=== PATIENT | female | born 1950 | race Caucasian/White ===

== ENCOUNTER 2017-10-16 10:55 | Outpatient (RCR) | payer MEDICARE, MEDICAID, SELFPAY ==
--- NOTE | 2017-10-16 19:24 | HP.PTEVAL_ITS ---
Patient's Visit Information AMINATA LEE is a 67 year old F referred to Physical Therapy by DR.CBURSL Joseph with a diagnosis of L hemiparesis. Date of Evaluation: 10/16/17 Physical Therapist: Sonia Jones - Visit Plan Plan: Pt only needed 1X visit to assess function. Letter will be sent to MD - Subjective Subjective: Pt reports that she has a hard time to get up if she is sitting too long on the sofa or something. Pt reports that her school social worker told her to get an evaluation. She has a home health aide that helps her clean. Pt likes someone to be there when she showers. She has grab bars to hold onto. Pt gets moms meals that she heats up. She can stand for about a few minutes and then she needs to sit. She does not kneel at all because she had a knee replacement on the L and pain in the R knee. She has been using the straight cane for about 30 years. Pt had her stroke December 06, 1981. Pt reports that control pills caused it. Pt reports that she looses her balance very easily. She uses the cane mostly outdoors. If she moves too quick she will fall down. Pt can not look up unless she holds onto something. Pt has been noticing after age 63 she has been declining in strength. She can do stairs as long as there is a railing. She has hypersenitivity on the L side. Pt has a chair lift going to the basement to do the laundry and carry laundry up the stairs. She has a Nu- step and only using it a couple times a week and wants to get better at it. Pt wants a one time evaluation. Pt sees the pain Dr for back pain and arthritis pain. - Pain Headache Pain Intensity (Out of 10): 5 - Objective Gait: walks with L hip in ER and advances L foot with hip add. She is able to walk without a straight cane but has longer gait endurance with a straight cane. Stairs: able to go up and down stairs mostly with ascending the stairs leading with the R and descending leading with the L using 1 hand rail in the R hand. Pt was able to ascend the stairs alternating but stuggles and it is much easier to lead with the R while ascending the stairs. LE MMT: hip flex R 4/5 and L 3-/5, knee ext R 4/5 and L 3-/5, Knee flex R 4/5 and L 3+/5, R hip abd 4- /5 and L 3-/5, Heel and toe raise on the R with UE support has full range but L she is unable to do so. Pt struggles to roll side to side unless she has big enough mat to roll side to side without having to scoot over prior to rolling. Sit to stand: Pt is able to sit to stand with the use of her R UE and mostly the use of her R LE. Pt's L UE is not able to functionally help pt to be able to rise out of a chair. She is unable to get up out of the chair without the use of her R UE. Pt's reports that when she is sitting in a chair for awhile that is when she has a difficult time getting up out of a chair and the need for a lift chair. I was unable to witness this due to the fact I was having the pt move in order to complete the intial evaluation. - Rehabilitation Potential Rehabilitation Potential: Good - Anticipated Interventions Thank you for the opportunity to evaluate your patient. For Medicare and Medicare HMO plans, please review the plan of care and approve it. It will need to be FAXED BACK to us at [phone] for Medicare purposes. Please let me know if there are questions or concerns regarding this plan of care. Physician Signature: Date:
--- NOTE | 2017-12-17 13:18 | HP.PTDCSUM ---
HP - PT D/C Summary It has been my pleasure to treat AMINATA LEE under orders from Miguel Teresa, , for the diagnosis of L hemiparesis for a total of 1 visit(s). Discharge Date: 10/16/17 Please see the following information for a summary of their discharge status. - Pain Headache Pain Intensity (Out of 10): 5 - Plan Plan: Pt only needed 1X visit to assess function. Letter will be sent to MD - D/C Information Discharge Comments: DC back to physician care If there are questions or concerns regarding this patient's physical therapy, please feel free to call me at [phone]. Thank you for the referral of this patient. Sincerely, Sonia Jones
== END 2017-10-16 19:00 | disposition home or self-care (01) ==
LOC: PT 10:55
PROVIDERS: Family Provider Family Medicine; PCP Family Medicine; Visit Provider Family Medicine
DX: I63.311 Cerebral infarction due to thrombosis of right middle cerebral artery (principal); G81.14 Spastic hemiplegia affecting left nondominant side
CPT/HCPCS: 97162

== ENCOUNTER 2018-01-20 14:00 | Outpatient (RCR) | payer MEDICARE, MEDICAID, SELFPAY ==
--- NOTE | 2018-01-06 08:00 | HP.PTEVAL_ITS ---
Patient's Visit Information AMINATA LEE is a 67 year old F referred to Physical Therapy by Prabhakar Barrera MD with a diagnosis of R RTC pathology vs arthritis, L shoulder stiffness. Date of Evaluation: 12/25/17 Physical Therapist: Checo Araiza - Visit Plan Frequency: 2x /Week Duration: 4-6 Weeks Plan: Start with R shoulder stability/ROM exercises, May use modalities as needed. PRogress from phase II to phase III if pain is absent. Add in L elbow sustained stretching and PNF patterns to reduce tone. - Subjective Subjective: Pt. is her today her initial evaluation with diagnosis of R shoulder pain and L UE stiffness. Pt. reports having increased R shoulder pain for ~2-3 months with no mechanis, of injury. Increases pain: lifting, UB dressing, raising her arm, most ADLs. Decreases- drugs. Pt. reports that driving also causes some pain. She denies N/T and pain is at lateral shoulder and into deltoid region. Pt. has no pain in LUE, but does have weakness seoncdary to CVA ~30 years ago. Pt. reports increased L elbow stiffness over past 2-3 years. Pt. has not trialed any exercises, but does take medication that reduces her symptoms. Pt. reports being worried about her LUE stiffness. - Pain R shoulder Pain Intensity (Out of 10): 5 Pain Intensity Range: 0, 5 Comment: only painful with moving - Objective POSTURE: PT. has FH posture, rounded shoulders. Her L UE is in extreme IR and hand has increased flexor tone. PALPATION: Pt. has increased pain at subacromial space of R shoulder, no pain in L shoulder. NEUROLOGICAL: Pt. has absent LUE DTR biceps and triceps, normal sensation bilat. ROM: R shoulder- full with painful arc with abduction and flexion. IR limited to L5 with increased pain. LUE no voluntary movement of hand,elbow or shoulder. MMT- R shoulder- 4/5 generally throughout with increased pain with flexion, abduction and ER. L UE- 0/5 throughout. - Goals Goal 1:: Pt. to be I with HEP. Goal Time Frame: 4-6 Weeks Goal 2:: Pt.to have full R shoulder ROM without increase in pain. Goal Time Frame: 4-6 Weeks Goal 3:: Pt.to have increased L elbow flexion by 45deg allowing for increased ease of self care. Goal Time Frame: 4-6 Weeks Goal 4:: Pt. to have increased R shoulder strength by 1/2 grade allowing for increased ability to complete all ADLs. Goal Time Frame: 4-6 Weeks Goal 5:: Pt. to compelte all ADLs with 0-1/10 pain in R shoulder. - Rehabilitation Potential Physical Therapy Diagnosis: Pt. has signs and symptoms of R shoulder pain and L UE stiffness. Pt. has painful arc with R shoulder, but full motion. Pt. has signs suggesting tendonitis, RTC strain possible small tear, but not conclusive. Pt. has better motion and strength than expected if tear is present. Pt. also have LUE stiffness secondary to increased tone after CVA. Pt. would benefit from PT to increased R shoulder strength, painfree ROM, and improved L UE ROM. Pt. may benefit from spasticity management of LUE rather than PT, but will trial some sustained stretching/PNF patterns due to reduce tone. Rehabilitation Potential: Good - Anticipated Interventions Patient/Client Instruction: Educate patient on: Condition, Plan of Care, Risk Factors, Benefits of Fitness Program For the Purpose of:: To improve health and function, To foster healthy habits, To improve decision making, To facilitate caregiver knowledge, To improve self management, To prevent re-injury, To improve ability to perform tasks related to life management, To improve tolerance to ADL's Therapeutic Exercise to Include: Strength training, Power training, Postural training, Flexibilty training, Passive ROM, Active ROM, Scapular Strength/ Stabilization For the Purpose of:: To decrease pain, To decrease swelling/inflammation, To increase ROM, To improve nutrient delivery to tissue, To improve muscle performance and motor function, To improve ability to perform ADL's, To improve ability of physical actions for home/community/work/leisure, To improve health of tissue, To decrease soft tissue restriction, To increase flexibility/ROM Manual Therapy Techniques to Include: Mobilization, Passive ROM For the Purpose of:: To decrease pain, To decrease swelling/inflammation, To increase ROM, To improve nutrient delivery to tissue, To increase oxygenation perfusion, To improve muscle performance and motor function Thank you for the opportunity to evaluate your patient. For Medicare and Medicare HMO plans, please review the plan of care and approve it. It will need to be FAXED BACK to us at [phone] for Medicare purposes. Please let me know if there are questions or concerns regarding this plan of care. Physician Signature: Date:
--- NOTE | 2018-04-03 09:48 | HP.PTDCNRP_ITS ---
HP - Discharge Summary (1) - Patient Information AMINATA LEE was seen in my office for initial evaluation on 12/25/17. The following Plan of Care was established for this patient: Initial Frequency: 2x /Week Initial Duration: 4-6 Weeks - Anticipated Interventions Patient/Client Instruction: Educate patient on: Condition, Plan of Care, Risk Factors, Benefits of Fitness Program For the Purpose of:: To improve health and function, To foster healthy habits, To improve decision making, To facilitate caregiver knowledge, To improve self management, To prevent re-injury, To improve ability to perform tasks related to life management, To improve tolerance to ADL's Therapeutic Exercise to Include: Strength training, Power training, Postural training, Flexibilty training, Passive ROM, Active ROM, Scapular Strength/ Stabilization For the Purpose of:: To decrease pain, To decrease swelling/inflammation, To increase ROM, To improve nutrient delivery to tissue, To improve muscle performance and motor function, To improve ability to perform ADL's, To improve ability of physical actions for home/community/work/leisure, To improve health of tissue, To decrease soft tissue restriction, To increase flexibility/ROM Manual Therapy Techniques to Include: Mobilization, Passive ROM For the Purpose of:: To decrease pain, To decrease swelling/inflammation, To increase ROM, To improve nutrient delivery to tissue, To increase oxygenation perfusion, To improve muscle performance and motor function This patient was last seen in our office 01/24/18. Pertinent comments regarding their Physical therapy will appear below: Pt. was seen for her L elbow tightness and L shoulder pain. Pt. was treated with strenthening, ROM, and stretching. SHe was to follow up with Dr. Nur about possible contracture management of her LUE. Pt. has not been seen for this case in ~2 months and will be DC this case. At this point I will be discontinuing this patient from physical therapy. I would be happy to see this patient again in the future if found appropriate by the physician. Thank you! Checo Araiza
== END 2018-01-20 19:00 | disposition home or self-care (01) ==
LOC: PT 14:00
PROVIDERS: Family Provider Family Medicine; PCP Family Medicine
DX: M25.511 Pain in right shoulder (principal)
CPT/HCPCS: 97035; 97110; 97140; 97163

== ENCOUNTER 2018-03-19 14:15 | Outpatient (RCR) | payer MEDICARE, MEDICAID, SELFPAY ==
[2018-03-19 14:38] VITALS: BP 135/76; PULSE 79; RESP 18; TEMP 36.6
--- NOTE | 2018-03-19 15:44 | PCM.WC.HP ---
(1) Ulcer of left lower extremity, limited to breakdown of skin Status: Resolved Code(s): L97.921 - Non-pressure chronic ulcer of unspecified part of left lower leg limited to breakdown of skin (2) Foot drop, left Status: Chronic Code(s): M21.372 - Foot drop, left foot (3) Edema leg Status: Chronic Code(s): R60.0 - Localized edema (4) Venous insufficiency Status: Suspected Code(s): I87.2 - Venous insufficiency (chronic) (peripheral) (5) Lymphedema Status: Suspected Code(s): I89.0 - Lymphedema, not elsewhere classified History of Present Illness Date of Service: 03/22/18 Chief Complaint: Left leg wound and swelling History of Wound: This 67-year-old female with multiple comorbidities including chronic low back pain history of gastric ulcers osteoarthritis, GERD, insomnia, knee pain, lumbar go, migraines, obesity, urinary disorder history, stroke in 1981, hemorrhoids, urinary urgency, year or in prolapse, history of vitamin D deficiency. She was seen today at the wound healing center for a left leg wound that has subsequently healed prior to her visit. She has chronic swelling and she reports previous history of cellulitis to this limb. Her swelling has been going on for years and she is tried some compression stockings. She does have difficulty putting these on due to her left-sided hemiparesis and drop foot. She denies routine elevation or other previous workup for swelling. She denies current drainage, redness, fever, chill, nausea, vomiting. Past Medical History Past Medical History: Chronic Problems Foot drop, left (Chronic) Edema leg (Chronic) History of stroke (Chronic) Past Medical History: As noted in subjective. Medications: Reviewed. Allergies: Reviewed. Social history lives with at home, denies smoking or drug activity. Primary provider: Kassandra Sharma, [facility] / Dr. Teresa Allergies/Adverse Reactions: Allergies hydrochlorothiazide Allergy (Verified 03/19/18 14:54) Other metronidazole [From Flagyl] Allergy (Verified 03/19/18 14:54) Unknown dizziness triamterene Adverse Reaction (Verified 02/18/17 20:48) Other Home Medications: Ambulatory Orders Medication Instructions Recorded Amitriptyline HCl [Elavil] 100 mg PO QHS 04/09/15 Atorvastatin Calcium [Lipitor] 10 mg PO QHS 04/09/15 Diltiazem HCl [Diltiazem 24Hr ER] 300 mg PO DAILY 04/09/15 Gabapentin [Neurontin] 300 mg PO BID 04/09/15 Docusate Sodium [Colace] 100 mg PO DAILY 02/09/17 Famotidine [Pepcid] 40 mg PO DAILY 02/09/17 Furosemide [Lasix] 40 mg PO DAILY 02/09/17 Multivitamin [Daily Multiple 1 each PO DAILY 02/09/17 Vitamin] Trospium Chloride [Sanctura] 20 mg PO BID 02/09/17 Hydrocodone Bitart/Apap 5-325 2 tablet PO BID PRN PRN #40 tablet 02/21/17 [[place] 5/325] Cholecalciferol (Vitamin D3) 2,000 unit PO DAILY 03/19/18 [Vitamin D3] Potassium Chloride [K-Dur] 20 meq PO DAILY 03/19/18 - Family History Maternal No pertinent history Smoking Status: Never smoker Review of Systems Constitutional: Denies: Chills, Fever, Weakness Cardiovascular: Reports: Edema. Denies: Chest Pain, Claudication Respiratory: Denies: Shortness of Breath Gastrointestinal: Denies: Diarrhea, Nausea, Vomiting Musculoskeletal: Denies: Foot Pain, Joint Tenderness, Leg Pain Skin: Reports: Skin Changes, Wounds. Denies: Pruritis Neurological: Denies: Numbness Hematologic/ Lymphatic: Reports: Easy Bruising - Physical Exam Vital Signs Temp Pulse Resp BP 97.8 F 79 18 135/76 H 03/19/18 14:38 03/19/18 14:38 03/19/18 14:38 03/19/18 14:38 General: Alert, Oriented x3, Cooperative HEENT: Atraumatic Extremities: No cyanosis, Capillary Refill Less than 3 Seconds, No Calf Tenderness - Negative Rory and Mercado sign bilateral, Diminished Peripheral Pulses - Palpable DP pulses bilateral and difficult to palpate PT pulses bilateral, Edema - Edema moderate bilateral lower extremities Skin: Ulcer/ Wound - No ulcer, erythema, streaking, odor, or infection noted today. The skin is atrophic and with scant hair; hair is noted to the ankle level and also to the dorsal foot bilateral. There is hyperpigmentation noted to the anterior shins Wound Measurements and Assessment WC - Nurse 1 - General Ulcer Measurement Start: 03/19/18 13:50 Freq: Status: Active Protocol: Activity Type Activity Date Activity User E-Sign Co-Sign Detail Recorded Client Recorded Date Recorded By Document 03/19/18 14:38 DL [id number] 03/19/18 14:54 DL 03/19/18 14:38 Wound Center Nurse 1 [Edema Assessment] -Right Calf (cm) 44.5 -Point of Measurement (cm from the 24.5 medial instep) -Point of measurement (cm from the 47 medial instep) -Point of Measurement (cm from the 28.7 medial instep) - Nurse 2 - General Ulcer Notes Start: 03/19/18 13:50 Freq: Status: Active Protocol: Activity Type Activity Date Activity User E-Sign Co-Sign Detail Recorded Client Recorded Date Recorded By Document 03/19/18 15:08 [id number] 03/19/18 15:09 03/19/18 15:08 Pain Scale: 0-10 Numeric [Pain] -Is Patient Pain Free? Yes Musculoskeletal: No Tenderness to Palpation of Joints or Extremities, Muscle Wasting, - - Compartments of lower extremity remain soft. Ankle muscle strength in all directions is 5 out of 5 right and weakness with left lower extremity dorsiflexion eversion is noted this is consistent with a dropfoot. Active range of motion of all digits is noted in normal. Neurological: Sensory exam intact to light touch and pain Psych/Mental Status: Normal Affect, Appropriate Debridement Note Post-Debridement Measurements/Treatment - Nurse 2 - General Ulcer Notes Start: 03/19/18 13:50 Freq: Status: Active Protocol: Activity Type Activity Date Activity User E-Sign Co-Sign Detail Recorded Client Recorded Date Recorded By Document 03/19/18 15:08 [id number] 03/19/18 15:09 03/19/18 15:08 Pain Scale: 0-10 Numeric Is Patient Pain Free? Yes No debridement was completed today - No wound is noted today Assessment/Plan Assessment: History of left leg ulcer; healed today without infection signs. Chronic left leg edema; rule out venous insufficiency versus early lymphedema. Left drop foot. Gait impairment Plan: I reviewed and discussed her case today. She is concerned about recurrent wounds and she was reassured no wound or infection noted today. I recommend further workup with venous duplex Doppler including reflux evaluation to screen her for venous insufficiency. In order for arterial venous studies were provided today and she will return to clinic after these are completed. I recommend she continue to try to wear compression stockings; she is tried these for several years and struggles with proper use. They are very uncomfortable. I initiated a prescription for CircAid compression wrap for the left lower extremity and she will initiate this process. She was advised to elevate her limbs at rest. She was advised to avoid idle standing and sitting. She was educated on findings of blood clots and this is not suspected today. She was advised to continue follow-up with her primary care physician which medication contribution to the swelling will be reviewed and considered. I answered all of her questions. I also offered her future drop foot bracing and she will pursue this after her edema workup is completed. She understands braces at this including a low-profile more balanced brace versus a more protective and corrective brace to prevent dropfoot that had a patellar tendon bearing brace component. She will follow-up within the next 2-4 weeks.
== END 2018-03-21 23:59 ==
LOC: WC 14:15
PROVIDERS: Family Provider Family Medicine; PCP Family Medicine; Visit Provider Podiatrist
DX: Z09 Encounter for follow-up examination after completed treatment for conditions other than malignant neoplasm (principal); I87.2 Venous insufficiency (chronic) (peripheral); I89.0 Lymphedema, not elsewhere classified; R60.0 Localized edema; M21.372 Foot drop, left foot; Z79.899 Other long term (current) drug therapy; K21.9 Gastro-esophageal reflux disease without esophagitis
CPT/HCPCS: 99213; G0463

== ENCOUNTER 2018-03-26 11:03 | Outpatient (RCR) | payer MEDICARE, MEDICAID, SELFPAY ==
[2018-03-22 01:52] VITALS: BP 135/76; PULSE 79; RESP 18; TEMP 36.6
[2018-03-26 13:18] VITALS: RESP 18; TEMP 36.4
--- NOTE | 2018-03-26 15:47 | PCM.WC.PN ---
(1) Edema leg Status: Chronic Current Visit: Yes Code(s): R60.0 - Localized edema (2) Venous insufficiency Status: Suspected Current Visit: Yes Code(s): I87.2 - Venous insufficiency (chronic) (peripheral) (3) Lymphedema Status: Suspected Current Visit: Yes Code(s): I89.0 - Lymphedema, not elsewhere classified Type of Wound Date of Service: 03/26/18 Chief Complaint: Left leg wound and swelling History of Wound: This 67-year-old female with multiple comorbidities including chronic low back pain history of gastric ulcers osteoarthritis, GERD, insomnia, knee pain, lumbar go, migraines, obesity, urinary disorder history, stroke in 1981, hemorrhoids, urinary urgency, year or in prolapse, history of vitamin D deficiency. She was seen today at the wound healing center for a left leg wound that has subsequently healed prior to her visit. She has chronic swelling and she reports previous history of cellulitis to this limb. Her swelling has been going on for years and she is tried some compression stockings. She denies current drainage, redness, fever, chill, nausea, vomiting. She denies leg redness, wound, or drainage. She had her venous Doppler exams completed and would like to review the results today. Progress of Wound: No ulcer - Physical Exam Vital Signs Temp Pulse Resp BP 97.5 F L 79 18 135/76 H 03/26/18 13:18 03/22/18 01:52 03/26/18 13:18 03/22/18 01:52 General: Alert, Oriented x3, Cooperative Extremities: No cyanosis, Capillary Refill Less than 3 Seconds, No Calf Tenderness - Negative Rory and Mercado sign bilateral, Diminished Peripheral Pulses, Edema - Left moderate, right mild. Left leg is indurated. Varicosities noted to bilateral lower extremities Skin: Ulcer/ Wound - Full epithelialization continues. His skin is atrophic and she does have hair to the midline level Wound Measurements and Assessment WC - Nurse 1 - General Ulcer Measurement Start: 03/26/18 13:16 Freq: Status: Active Protocol: Activity Type Activity Date Activity User E-Sign Co-Sign Detail Recorded Client Recorded Date Recorded By Document 03/26/18 13:18 [facility] [id number] 03/26/18 13:24 [facility] 03/26/18 13:18 Wound Center Nurse 1 [Edema Assessment] -Lower Limb Edema Present Yes -Right Calf (cm) 40.8 -Right Ankle (cm) 24.7 -Left Calf (cm) 47.4 -Left Ankle (cm) 29 WC - Nurse 2 - General Ulcer CM Notes Start: 03/26/18 13:16 Freq: Status: Active Protocol: Activity Type Activity Date Activity User E-Sign Co-Sign Detail Recorded Client Recorded Date Recorded By Document 03/26/18 13:34 [id number] 03/26/18 13:43 03/26/18 13:34 Pain Scale: 0-10 Numeric [Pain] -Is Patient Pain Free? Yes Musculoskeletal: No Tenderness to Palpation of Joints or Extremities, Muscle Wasting, - - Left hemiparesis dropfoot unchanged from last visit Neurological: - - Lack of normal sensation in the left Psych/Mental Status: Normal Affect, Appropriate Debridement Note Post-Debridement Measurements/Treatment WC - Nurse 2 - General Ulcer CM Notes Start: 03/26/18 13:16 Freq: Status: Active Protocol: Activity Type Activity Date Activity User E-Sign Co-Sign Detail Recorded Client Recorded Date Recorded By Document 03/26/18 13:34 [id number] 03/26/18 13:43 03/26/18 13:34 Pain Scale: 0-10 Numeric Is Patient Pain Free? Yes No debridement was completed today - No ulcer is noted Assessment/Plan Active Problems Edema leg (Chronic) Assessment: History of left leg ulcer; healed today without infection signs. Chronic left leg edema; venous insufficiency, early lymphedema. Left drop foot. Gait impairment Plan: I reviewed and discussed her case today. She is concerned about recurrent wounds and she was reassured no wound or infection noted today. I recommend further workup with venous duplex Doppler including reflux evaluation to screen her for venous insufficiency. The results were reviewed today. She has venous incompetence and a referral was provided to vascular surgeon, Dr. Maravilla, to see if intervention is possible. I recommend she continue to try to wear compression stockings; she is tried these for several years and struggles with proper use. They are very uncomfortable. I initiated a prescription for CircAid compression wrap for the left lower extremity and she will initiate this process. She was advised to elevate her limbs at rest. She was advised to avoid idle standing and sitting. She was educated on findings of blood clots and this is not suspected today. She was advised to continue follow-up with her primary care physician which medication contribution to the swelling will be reviewed and considered. I answered all of her questions. I also offered her future drop foot bracing and she will pursue this after her edema workup is completed. She understands braces at this including a low-profile more balanced brace versus a more protective and corrective brace to prevent dropfoot that had a patellar tendon bearing brace component. She will be discharged from the wound healing center today because she does not have an ulcer. I recommend she follow-up at the foot and ankle center after she goes to her vascular referral or call sooner if she has any questions or concerns. We will additionally follow up on her vascular plan, compression CircAid order, and drop foot brace options.
== END 2018-04-20 23:59 ==
LOC: WC 11:03
PROVIDERS: Family Provider Family Medicine; PCP Family Medicine; Visit Provider Podiatrist
DX: I87.2 Venous insufficiency (chronic) (peripheral) (principal); R60.0 Localized edema; I89.0 Lymphedema, not elsewhere classified; M21.372 Foot drop, left foot; K21.9 Gastro-esophageal reflux disease without esophagitis
CPT/HCPCS: 93970; 99212; G0463

== ENCOUNTER 2018-03-31 15:00 | Outpatient (RCR) | payer MEDICARE, MEDICAID, SELFPAY ==
--- NOTE | 2018-02-24 13:12 | HP.PTEVAL_ITS ---
Patient's Visit Information AMINATA LEE is a 67 year old F referred to Physical Therapy by Shamika Nur with a diagnosis of L UE stiffnes, LUE pain. Date of Evaluation: 02/24/18 Physical Therapist: Checo Araiza - Visit Plan Frequency: 1x/Week Duration: 4-6 Weeks Plan: Start with elbow ROM, wrist/finger ROM/strethching. Trial some rthymic rotation/inhibition to reduce tone as well. - Subjective Subjective: Pt. is here today for her initial evaluation with diagnosis of L arm pain and L arm stiffness. Pt. reports having botox injections last SaturdayFebruary 18 into her L elbow and shoulder. Pt. has a history of CVA 36 years ago, resulting L UE hemiparesis. Pt. had noticed increased diffculty with ROM of her RUE over the past 6 months. She was initially referred her previously with L arm stiffness, but was referred to physician for botox injections. Pt. is able to complete all ADLs, but does have difficulty with management of LUE due to stiffness. Pt. is hopeful to increase ROM of elbow allowing for increased self care/management. - Pain LUE Pain Intensity (Out of 10): 0 - Objective POSTURE: Pt. keeps LUE in shoulder IR, and wrist in flexion. PT. has terminal elbow extension as well. PALPATION: Pt. mild tenderness at deltoid region, no symptoms in elbow. Pt. has decreased sensation to light touch, normal to firm pressure. NEUROLOGICAL: PT. has slight decrease in sensation throughout LUE, 3 + biceps and tricpes DTR, but limited motions noted. Pt. has increased tone throughout LUE elbow and wrist. ROM: RUE- full motions no issues. LUE- wrist- ext- neural passively, flexion full; elbow- ext full, elbow flexion 79deg passively, no active motion. MMT- Pt. is able to complete shoulder shrug, but no distal arm strength noted. - Goals Goal 1:: Pt. to be I with HEP. Goal Time Frame: 2-4 Weeks Goal 2:: Pt. to have increased L elbow flexion to 90+ deg alllowing for increased ability with UB dressing. Goal Time Frame: 2-4 Weeks Goal 3:: Pt. to have increased wrist extension to neutral passively allowing for increased ability to complete hygiene. Goal Time Frame: 2-4 Weeks - Rehabilitation Potential Physical Therapy Diagnosis: Pt. has signs and symptoms consistent with LUE stiffness secondary to increased tone after CVA. Pt. reports increased stiffness over past few years. She recently had botox injections to reduce some tone. She continues to have stiffness but has improved since last seeing her. Pt. would benefit from PT to continue stretching allowing for increased self mangement and care. Rehabilitation Potential: Fair - Anticipated Interventions Patient/Client Instruction: Educate patient on: Condition, Plan of Care, Risk Factors, Benefits of Fitness Program For the Purpose of:: To foster healthy habits, To improve decision making, To facilitate caregiver knowledge, To improve self management, To prevent re-injury , To improve ability to perform tasks related to life management, To improve tolerance to ADL's Therapeutic Exercise to Include: Flexibilty training, Passive ROM, Active ROM, Alexander Exercises, Scapular Strength/Stabilization For the Purpose of:: To decrease pain, To increase ROM, To improve nutrient delivery to tissue, To increase oxygenation perfusion, To improve ability to perform ADL's, To improve health of tissue, To decrease soft tissue restriction , To increase flexibility/ROM Thank you for the opportunity to evaluate your patient. For Medicare and Medicare HMO plans, please review the plan of care and approve it. It will need to be FAXED BACK to us at [phone] for Medicare purposes. Please let me know if there are questions or concerns regarding this plan of care. Physician Signature: Date:
--- NOTE | 2018-04-07 13:41 | HP.PTDCSUM ---
HP - PT D/C Summary It has been my pleasure to treat AMINATA LEE under orders from Shamika Nur, for the diagnosis of L UE stiffnes, LUE pain for a total of 4 visit(s). Discharge Date: 03/31/18 Please see the following information for a summary of their discharge status. - Subjective Subjective: Pt. reports I am doing okay today. She reports no pain currently. Pt. reports attempting to stretch on own at home with some success. - Pain LUE Pain Intensity (Out of 10): 0 - Overall Improvement % Improvement: 50 - Objective Objective/Function: Pt. tolerated all PT this date. Pt. continues to present with increased spasticity in LUE, maybe contracture. Pt. has some improved ROM, but minimal. ROM- L elbow 0-95deg increased pain with overpressure. in both directions. Pt. continues to keep arm in full shoulder IR with finger flexion. Pt. reports no pain in this position. - Goals Goal 1:: Pt. to be I with HEP. Goal Progress: Goal Met Goal 2:: Pt. to have increased L elbow flexion to 90+ deg alllowing for increased ability with UB dressing. Goal Progress: Progressing Goal 3:: Pt. to have increased wrist extension to neutral passively allowing for increased ability to complete hygiene. Goal Progress: Progressing - Plan Plan: Pt. to be DC to stretching HEP at this point in time. Pt. consents. - D/C Information Discharge Comments: Pt. had some small increases in ROM of L UE, but minimal. She reprots mild consistency with stretching at home. Pt. is independent with her current HEP and will be DC to stretching at home. Pt. given exercises for longer holds with stretching to increase consistency and to stay away from full IR positioninig, pt. consents. If there are questions or concerns regarding this patient's physical therapy, please feel free to call me at [phone]. Thank you for the referral of this patient. Sincerely, Checo Araiza
== END 2018-03-31 19:00 | disposition home or self-care (01) ==
LOC: PT 15:00
PROVIDERS: Family Provider Family Medicine; PCP Family Medicine; Visit Provider Anesthesiology Pain Medicine
DX: M79.603 Pain in arm, unspecified (principal); M25.60 Stiffness of unspecified joint, not elsewhere classified
CPT/HCPCS: 97110; 97161

== ENCOUNTER 2018-11-25 09:32 | Observation (INO) | payer MEDICARE, SELFPAY ==
[2018-11-25 09:28] VITALS: BP 165/85; PULSE 66; PULSE 77; RESP 18; TEMP 36.4; O2SAT 94; BMI 41.6
--- NOTE | 2018-11-25 10:02 | EKG12_ITS ---
Test Reason : WEAKNESS Blood Pressure : / mmHG Vent. Rate : 075 BPM Atrial Rate : 075 BPM P-R Int : 152 ms QRS Dur : 092 ms QT Int : 392 ms P-R-T Axes : 044 006 031 degrees QTc Int : 437 ms Normal sinus rhythm Normal ECG Confirmed by PETER DUKES ([id number]), magazine editor EARL SILVA ([id number]) on 11/28/2018 11:08:16 AM Referred By: JULIANNE Confirmed By:PETER DUKES
--- NOTE | 2018-11-25 10:05 | RAD_ITS ---
STUDY: X-RAY CHEST REASON FOR EXAM: Female, 68 years old. Weakness. History of CVA. TECHNIQUE: Single AP portable view of the chest. COMPARISON: None. FINDINGS: The lungs are clear and expanded. Scattered calcified granulomas. There is no demonstrated pleural abnormality. Normal size heart. Normal mediastinum and [place]. Normal visualized pulmonary arteries. There is atherosclerotic tortuosity of the aortic arch and descending thoracic aorta. There are degenerative changes of the visualized thoracic spine. There is degenerative osteoarthritis of the left shoulder. There is no demonstrated abnormality of the visualized soft tissue structures of the upper abdomen. RAD/Chest 1 View (Portable) IMPRESSION: Normal x-ray examination of the chest. Electronically Signed: Brayan Ram, at 10:46 EDT , Service support ,
[2018-11-25 10:27] LABS: Absolute Lymphocyte Count 1.19 X10^3/ul (0.83-4.51); Absolute Neutrophil Count 3.3 X10^3/uL (2.0-7.7); Basophil# 0.02 X10^3/uL; Basophil% 0.4 % (0-1); Eosinophil# 0.21 X10^3/uL; Hematocrit 41.2 % (37-47); Hemoglobin 13.3 g/dl (12.0-15.0); Lymphocyte # 1.19 X10^3/ul (4.0); Lymphocyte % 22.8 % (19-41); Mean Corp Hgb Conc 32.3 g/gl (32-36); Mean Corpuscular Hgb 29.5 pg (27.0-32.0); Mean Corpuscular Volume 91.4 fL (81-99); Mean Platelet Vol. 9.7 fl (6.2-12.0); Monocyte# 0.49 X10^3/uL; Monocyte% 9.4 % (0-10); Neutrophil % 63.2 % (47-70); Platelet Count 209 K/mm3 (150-450); RBC Distribution Width CV 13.1 % (11.6-14.6); RBC Distribution Width SD 43.5 fl (35.1-43.9); Red Blood Count 4.51 M/mm3 (4.2-5.4); White Blood Count 5.2 K/mm3 (4.4-11.0)
[2018-11-25 10:32] LABS: POSITIVE COUNT NO; POSITIVE DIFFERENTIAL NO; POSITIVE MORPHOLOGY NO
[2018-11-25 10:40] LABS: Anion Gap -1 (5-15); BUN 9 mg/dL (7-18); BUN/Creat Ratio 16.4 RATIO (10-20); Calcium,Total 8.8 mg/dL (8.5-10.1); Chloride 105 mmol/L (98-107); Creatinine, Serum 0.55 mg/dL (0.55-1.02); EST Glomerular Filtration Rate 116 mL/min (>60); Est Glom Filt Rate - Afr Amer 141 mL/min (>60); Glucose 88 mg/dL (74-106); Potassium 3.6 mmol/L (3.5-5.1); Sodium Level 140 mmol/L (136-145)
[2018-11-25 10:49] VITALS: BP 146/69; PULSE 79; RESP 18; O2SAT 93
[2018-11-25] MEDS: 0.9% Normal Saline 1,000 ML 150 ML IV (10:50)
[2018-11-25 10:56] LABS: Bacteria 0 SEEN /hpf (None Seen); Mucous, Urine 0 SEEN /hpf (<or=2+); Red Blood Cells-Urine 0 SEEN /hpf (0-5); Squamous Epithelial Cells - UA 0 SEEN /hpf (5-10); White Blood Cells 0 SEEN /hpf (0-5)
[2018-11-25 10:58] LABS: Color, Urine Straw (Yellow); Glucose, Dipstick Normal (Normal); Ketone-Dipstick Negative (Negative); Leukocyte Esterase-Dipstick Negative /ul (Negative); Nitrite-Dipstick Negative (Negative); Occult Blood-Urine Negative /ul (Negative); Protein-Dipstick Negative (Negative); Urine Bilirubin Dipstick Negative (Negative); Urine Clarity Clear (Clear); Urine Urobilinogen Normal (Normal)
--- NOTE | 2018-11-25 11:15 | ED.VISSUMM ---
- ER Visit Summary Date of Service: 11/25/18 Chief Complaint: [Weakness] History of Present Illness: The patient is a 68 F [presents with weakness that started last evening. Patient states that she got up it 1 in the morning to use the restroom and slid to the floor and could not get back up. Her daughter could not get her up either so they called EMS who helped her back in the bed. This morning she was able to stand up and get to the bedside commode but felt very weak and then once on the commode she could not get back up. Patient called EMS to bring her in for evaluation. Patient denies any fever or recent illness. Patient states she has history of left-sided stroke and weakness on the left side. Patient states she is been eating and drinking normally. She denies any fevers. She denies any cough. She denies urinary symptoms. Patient states she has not had symptoms like this before.] Physical Examination: [HEENT-PERRLA, EOMI. Cranial nerves II through XII grossly intact. TMs clear. Mucous membranes moist. No adenopathy. Cardiovascular-regular rate and rhythm without murmur or ectopy Lungs-clear to auscultation, chest wall stable without crepitus or subcu emphysema Abdomen-normoactive bowel sounds, soft, nontender, no rebound or rigidity, no peritoneal signs. Neuro axib-oiehbu-vagp and heel vega testing within normal limits, negative Romberg, negative pronator drift, fundi benign. Nonfocal exam. Extremities-intact ?4, normal range of motion, normal pulses, atraumatic] Test Results: [EKG obtained on arrival shows sinus rhythm with a ventricular rate of 75 bpm with no acute I segment changes. CBC with differential showing a 5.2, hemoglobin 13, hematocrit 41, placed 209. Chemistries unremarkable. Urinalysis was normal. Chest x-ray was normal.] Emergency Department Course and Treatment: [Patient was given normal saline.] Treatment Plan: [Admit for further work-up and treatment] Disposition: [Admit] Impression: [Generalized weakness Inability to ambulate] This note was generated with TASS dictation software. It may contain incorrect words, spelling, and punctuation that were not noted in review of the chart prior to signing ED Disposition - Plan for ED Patient: Referrals: Miguel Teresa MD [Primary Care Provider] -
--- NOTE | 2018-11-25 11:19 | PCM.HP.STD ---
History of Present Illness Date of Admission: 11/25/18 Chief Complaint: generalised weakness The patient is a 68 year old F patient states she got up to use the bathroom in the middle of the night and was unable to get up of the commode and had to slide down to the floor. Her daughter was not able to get her up and says that called the squad to get her back in bed. Upon waking up this morning she realized she was very weak and could barely get out of bed so she called the squad again and she was brought to the ED. She does admit to a fall a few days ago after she tripped in some water and landed on her backside. She had noticed that she had been having pain just above her right knee and also her right shoulder for the past 2 days. She however says that she does not think that this was due to the fall she had. She has not had any other falls recently. She denied any fever chills, lightheadedness, dizziness or palpitations, chest pain, diarrhea vomiting. 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 She was admitted through the ED on 11/25/18 with a complaint of new onset generalised weakness of one day duration. In the ED, vitals were stable and chemistry was significant only for bicarb of 36. CBC was unremarkable and troponin was negative. CXR showed no acute cardiopulmonary process. She is being admitted to be managed for generalised weakness and debility[] Past Medical History Past Medical History (Chronic Problems): Chronic Problems Foot drop, left (Chronic) Edema leg (Chronic) History of stroke (Chronic) Allergies hydrochlorothiazide Allergy (Verified 03/19/18 14:54) Other metronidazole [From Flagyl] Allergy (Verified 03/19/18 14:54) Unknown dizziness triamterene Adverse Reaction (Verified 02/18/17 20:48) Other Home Medications: Ambulatory Orders Medication Instructions Recorded Amitriptyline HCl [Elavil] 100 mg PO QHS 04/09/15 Atorvastatin Calcium [Lipitor] 10 mg PO QHS 04/09/15 Diltiazem HCl [Diltiazem 24Hr ER] 300 mg PO DAILY 04/09/15 Gabapentin [Neurontin] 300 mg PO BID 04/09/15 Docusate Sodium [Colace] 100 mg PO BID 02/09/17 Famotidine [Pepcid] 40 mg PO DAILY 02/09/17 Furosemide [Lasix] 40 mg PO DAILY 02/09/17 Multivitamin [Daily Multiple 1 each PO DAILY 02/09/17 Vitamin] Hydrocodone Bitart/Apap 5-325 2 tablet PO BID PRN PRN #40 tablet 02/21/17 [Weiner 5/325] Cholecalciferol (Vitamin D3) 2,000 unit PO DAILY 03/19/18 [Vitamin D3] Potassium Chloride [K-Dur] 10 meq PO DAILY 03/19/18 Baclofen [Lioresal] 10 mg PO DAILY 11/25/18 Calcium Carbonate [Calcium] 1,200 mg PO DAILY 11/25/18 Ibuprofen 600 mg PO 4X/DAY PRN 11/25/18 Mupirocin [Bactroban] 1 applic TOPICAL TID 11/25/18 Oxybutynin [Ditropan] 2.5 mg PO BID 11/25/18 Surgical History: no surgical history Psychiatric History: No pertinent psych hx [employer] History: No pertinent [employer] history Lives: With Family - daughter lives with her Smoking Status: Never smoker Alcohol: None - *Family History Maternal History Items: No pertinent history Review of Systems Constitutional: Reports: Weakness. Denies: Chills, Fever, Malaise, Weight Change, Fatigue Eyes: Denies: Blurred vision HEENT: Denies: Head Aches, Sinus Congestion, Sinus Drainage Cardiovascular: Denies: Chest Pain, Palpitations Respiratory: Denies: Cough, Shortness of Breath, Shortness of breath at rest, Shortness of breath upon exertion, Sputum production Gastrointestinal: Denies: Abdominal Pain, Nausea, Vomiting Genitourinary: Denies: Dysuria Musculoskeletal: Reports: Joint Pain - right knee pain, Shoulder Pain - right shoulder pain Skin: Denies: Rash, Wounds Neurological: Denies: Numbness, Tingling, Focal weakness Psychiatric: Denies: Anxiety, Depression, Homicidal Ideations, Suicidal Ideations Hematologic/ Lymphatic: Denies: Easy Bruising, Easy Bleeding VTE Information - Inpt Only VTE Present on Admission: No VTE Pharm Prophylaxis ordered?: Yes - Physical Exam General: Alert, Oriented x3, Cooperative, No apparent distress HEENT: Atraumatic, PERRLA, EOMI, Normocephalic Oral: Dry Mucosa Neck: Supple, No JVD, Negative Carotid Bruits Lungs: Clear to auscultation, Normal air movement, No rhonchi, No wheeze, No rales Cardiovascular: Regular rate, Regular Rhythm, Normal S1, Normal S2, No murmurs Abdomen: Bowel Sounds Present, Soft, Non Tender, Non-Distended, No Hepato-splenomegaly Extremities: No clubbing, No cyanosis, Edema - mild chronic LLE pitting pedal edema Skin: No rashes, No breakdown Musculoskeletal: Tenderness - has mild tenderness to palpation of right knee and just above right knee. No swelling on examination. Has mild tenderness on palpation of right shoulder. Able to elevate, abduct and adduct right shoulder joint. Lymphatic: No Cervical, Supraclavicular, or Inguinal Adenopathy Neurological: - - power in LLE and LUE is 4-/5 which is due to residual weakness from stroke Psych/Mental Status: Normal Affect, Appropriate, Alert and oriented to time, place, person, mood and affect Vital Signs Temp Pulse Resp BP Pulse Ox 97.5 F L 79 18 146/69 H 93 11/25/18 09:28 11/25/18 10:49 11/25/18 10:49 11/25/18 10:49 11/25/18 10:49 Oxygen Delivery Method Room Air Weight: 213 lb 2.992 oz Body Mass Index (BMI) 41.6 Laboratory Tests Past 24 Hrs 11/25/18 11/25/18 11/25/18 10:10 10:10 10:50 WBC 5.2 RBC 4.51 Hgb 13.3 Hct 41.2 MCV 91.4 MCH 29.5 MCHC 32.3 RDW 13.1 RDW Differential 43.5 Plt Count 209 MPV 9.7 Immature Gran % (Auto) 0.200 Neut % (Auto) 63.2 Lymph % (Auto) 22.8 Drew % (Auto) 9.4 Eos % (Auto) 4.0 Baso % (Auto) 0.4 Absolute Neuts (auto) 3.3 Absolute Lymphs (auto) 1.19 Total Counted Not Reportable Sodium 140 Potassium 3.6 Chloride 105 Carbon Dioxide 36.0 H Anion Gap -1 L BUN 9 Creatinine 0.55 Estim Creat Clear Calc 37.60 Est GFR (MDRD) Af Amer 141 Est GFR (MDRD) Non-Af 116 BUN/Creatinine Ratio 16.4 Glucose 88 Calcium 8.8 Troponin I < 0.015 Urine Color Straw Urine Clarity Clear Urine pH 7.0 Ur Specific [place] 1.010 Urine Protein Negative Urine Glucose (UA) Normal Urine Ketones Negative Urine Occult Blood Negative Urine Nitrite Negative Urine Bilirubin Negative Urine Urobilinogen Normal Ur Leukocyte Esterase Negative Urine RBC 0 SEEN Urine WBC 0 SEEN Ur Squamous Epith Cells 0 SEEN Urine Bacteria 0 SEEN Urine Mucus 0 SEEN Assessment/Plan All Active Problems Ulcer of left lower extremity, limited to breakdown of skin (Resolved) Hypokalemia (Acute) Multiple falls (Acute) C. difficile diarrhea (Acute) Urinary tract infection due to Enterococcus (Acute) 68-year-old female admitted with complaint of generalized weakness. 1. Generalised weakness and debility due to mechanical falls fell a few days ago, and has been unable to get up and out of bed admit to Med Surg with telemetry CBC and BMP were WNL, apart from mildly elevated Bicarb of 36 fall precautions Xray of right shoulder and knee hydrate gently with IVF Normal saline check orthostatics PT/OT consult 2. Hypertension: on cardizem and furosemide. 3. Hyperlipidemia: on statin DVT prophylaxis: lovenox Code Visit Inpatient E&M: [id number] Init Hosp L2
--- NOTE | 2018-11-25 11:20 | ED.DCSUM_ITS ---
- ER Visit Summary Date of Service: 11/25/18 Chief Complaint: [Weakness] History of Present Illness: The patient is a 68 F [presents with weakness that started last evening. Patient states that she got up it 1 in the morning to use the restroom and slid to the floor and could not get back up. Her daughter could not get her up either so they called EMS who helped her back in the bed. This morning she was able to stand up and get to the bedside commode but felt very weak and then once on the commode she could not get back up. Patient called EMS to bring her in for evaluation. Patient denies any fever or recent illness. Patient states she has history of left-sided stroke and weakness on the left side. Patient states she is been eating and drinking normally. She denies any fevers. She denies any cough. She denies urinary symptoms. Patient states she has not had symptoms like this before.] Physical Examination: [HEENT-PERRLA, EOMI. Cranial nerves II through XII grossly intact. TMs clear. Mucous membranes moist. No adenopathy. Cardiovascular-regular rate and rhythm without murmur or ectopy Lungs-clear to auscultation, chest wall stable without crepitus or subcu emphysema Abdomen-normoactive bowel sounds, soft, nontender, no rebound or rigidity, no peritoneal signs. Neuro ehrn-lhunsr-bugf and heel vega testing within normal limits, negative Romberg, negative pronator drift, fundi benign. Nonfocal exam. Extremities-intact ?4, normal range of motion, normal pulses, atraumatic] Test Results: [EKG obtained on arrival shows sinus rhythm with a ventricular rate of 75 bpm with no acute I segment changes. CBC with differential showing a 5.2, hemoglobin 13, hematocrit 41, placed 209. Chemistries unremarkable. Urinalysis was normal. Chest x-ray was normal.] Emergency Department Course and Treatment: [Patient was given normal saline.] Treatment Plan: [Admit for further work-up and treatment] Disposition: [Admit] Impression: [Generalized weakness Inability to ambulate] This note was generated with [employer] dictation software. It may contain incorrect words, spelling, and punctuation that were not noted in review of the chart prior to signing ED Disposition - Plan for ED Patient: Referrals: Miguel Teresa MD [Primary Care Provider] -
--- NOTE | 2018-11-25 11:44 | CASEMGMT ---
RN CM Assessment Introduced role of RN CM to patient.? Patient is alert, oriented and able?to participate in RN CM Assessment. ?Care providers, pharmacy, and demographics verified. Presentation: Today while going to Bathroom Slid to fl and couldn't get up, Increased Weakness. H/o Lt side Stroke w/Lt side weakness. Admit Dx: General Debility Re-Admit: No Barriers/Issues: None. Patient states just seen [employer] yesterday and they placed an order for PT for her Shoulder at [facility]. PCP: Prabhakar Teresa Specialists: None Preferred Pharmacy: [facility] Insurance: [facility] Dual Rx Benefit:?Yes LNOK: Ovidio Del Angel and Dtr Laura Del Angel LW/HPOA: Yes both, patient aware not on file at [facility] and to bring when available. HPOA both ovidio Del Angel and Dtr Laura Del Angel Living Arrangements:? Lives with Dtr Laura and two Grandchildren. ADL?s: Independent with ambulation throughout House, Uses cane if Outside, Uses Mobility scooter for longer distances. Independent with ADL's. States that she has an Aide through [employer] w/[employer] twice/week and helps with house work and Bathing/Dressing-however she tries to do that herself. Transportation: Patient drives, states DC with Dtr DME: Cane, Shower Chair-does not use, states d/t it being too big. Commode, WC- states was her aunts but can use if needed. Mobility Scooter. HHC: Past w/[facility]. States if HH needed again, preference is [facility]. SNF: Past /[facility] Goal: Return home, states open to C PT if recommended w/[facility] DC PLAN: Home with possible HH PT. NEYDA Miller
[2018-11-25 12:03] VITALS: BMI 38.3; BMI 38.4
[2018-11-25 12:31] VITALS: BP 131/73; PULSE 71; RESP 18; TEMP 36.5; O2SAT 95
--- NOTE | 2018-11-25 14:03 | RAD_ITS ---
STUDY: X-RAY - RIGHT SHOULDER REASON FOR EXAM: Female, 68 years old. Pain TECHNIQUE: 4 view(s) of the shoulder. COMPARISON: None. FINDINGS: There is cephalad migration of the humeral head consistent with rotator cuff pathology. There is degenerative arthrosis of the acromioclavicular joint without inferior osseous spur formation. Normal acromion. Normal humeral head and visualized proximal humerus. The soft tissue structures are unremarkable. Normal visualized pulmonary apex. RAD/Shoulder min 2 Views IMPRESSION: There is mild cephalad migration of the humeral head which may be indicative of rotator cuff abnormality. There are degenerative changes of the right AC joint. Electronically Signed: Brayden Childers MD at 19:30 EDT , Service support ,
--- NOTE | 2018-11-25 14:03 | RAD_ITS ---
STUDY: X-RAY - RIGHT KNEE REASON FOR EXAM: Female, 68 years old. Pain. TECHNIQUE: 4 view(s) of the knee. COMPARISON: None. FINDINGS: There is periarticular spurring of the femoral condyles. There is periarticular spurring of the tibial plateaus, more prominent laterally, as well as spurring of the tibial spines. Mild subarticular sclerosis of the tibial plateaus. Normal visualized proximal fibula. There is mild periarticular spurring at the base and apex of the patella. There is no demonstrated destructive osseous lesion or acute fracture. There is overlie degenerative narrowing of the medial femorotibial compartment, as well as faint chondrocalcinosis. There is degenerative arthrosis of the lateral femorotibial compartment with mild to moderate joint space narrowing and mild chondrocalcinosis. Normal patellofemoral articulation. Normal proximal tibiofibular articulation. There is a soft tissue prominence in the suprapatellar region suggesting a small volume joint effusion. The soft tissue structures are unremarkable. RAD/Knee 4 or More Views IMPRESSION: Tricompartmental degenerative arthrosis of the knee, including chondrocalcinosis and suprapatellar joint effusion. Differential includes gout as well as calcium pyrophosphate deposition disease (pseudogout, CPPD). Electronically Signed: Dangelo Benedict MD at 19:30 EDT , Service support ,
[2018-11-25 16:35] VITALS: BP 139/82; PULSE 70; RESP 16; TEMP 36.6; O2SAT 96
[2018-11-25] MEDS: Gabapentin 300 MG Capsule PO (16:36)
[2018-11-25 16:37] VITALS: BP 139/82; BP 143/71; BP 147/78; PULSE 76; PULSE 86; PULSE 87
[2018-11-25] MEDS: Amitriptyline 100 MG Tablet PO (21:10)
[2018-11-25] MEDS: HYDROcodone Bitartrate/Apap 5/325 Tablet PO (21:10)
[2018-11-25] MEDS: Docusate Sodium 100 MG Capsule PO (21:10)
[2018-11-25] MEDS: Atorvastatin Calcium 10 MG Tablet PO (21:10)
[2018-11-25 21:13] VITALS: BP 150/80; PULSE 89; RESP 16; TEMP 36.9; O2SAT 96
[2018-11-26 03:13] VITALS: BP 135/77; PULSE 84; RESP 14; TEMP 36.5; O2SAT 92
[2018-11-26 05:45] LABS: Absolute Lymphocyte Count 1.79 X10^3/ul (0.83-4.51); Absolute Neutrophil Count 2.8 X10^3/uL (2.0-7.7); Basophil# 0.03 X10^3/uL; Basophil% 0.6 % (0-1); Eosinophils% 5.5 % (0-5); Hematocrit 37.8 % (37-47); Hemoglobin 12.2 g/dl (12.0-15.0); Lymphocyte # 1.79 X10^3/ul (4.0); Mean Corp Hgb Conc 32.3 g/gl (32-36); Mean Corpuscular Volume 89.8 fL (81-99); Monocyte# 0.49 X10^3/uL; Neutrophil % 51.7 % (47-70); Platelet Count 209 K/mm3 (150-450); RBC Distribution Width CV 12.8 % (11.6-14.6); RBC Distribution Width SD 41.2 fl (35.1-43.9); Red Blood Count 4.21 M/mm3 (4.2-5.4); White Blood Count 5.4 K/mm3 (4.4-11.0)
[2018-11-26 05:50] LABS: POSITIVE COUNT NO; POSITIVE DIFFERENTIAL NO; POSITIVE MORPHOLOGY NO
[2018-11-26 06:02] LABS: Anion Gap 2 (5-15); BUN 10 mg/dL (7-18); Calcium,Total 7.9 mg/dL (8.5-10.1); Chloride 108 mmol/L (98-107); Creatinine, Serum 0.48 mg/dL (0.55-1.02); EST Glomerular Filtration Rate 137 mL/min (>60); Est Glom Filt Rate - Afr Amer 166 mL/min (>60); Glucose 91 mg/dL (74-106); Potassium 3.6 mmol/L (3.5-5.1); Sodium Level 139 mmol/L (136-145)
[2018-11-26 06:17] VITALS: BP 122/69; BP 123/76; BP 131/84; PULSE 82; PULSE 87; PULSE 92
--- NOTE | 2018-11-26 07:21 | MRI_ITS ---
STUDY: MRI RIGHT SHOULDER REASON FOR EXAM: Female, 68 years old. Injury. Pain. Limited range of motion. TECHNIQUE: Standardized fat and water weighted pulse sequences were obtained in all 3 orthogonal planes. COMPARISON: November 25, 2018 FINDINGS: Full thickness tear of the supraspinatus and infraspinatus tendons with retraction of 3.0 cm, series 6 images 02/07 through . There is subscapularis tendinosis with tendon thickening, but without a demonstrated tendon tear. Normal teres minor tendon. There is moderate muscular atrophy of the supraspinatus muscle. There is moderate muscular atrophy of the infraspinatus muscle. Normal subscapularis muscle. Normal teres minor muscle. There is a large volume joint effusion of the glenohumeral joint extending to the subcoracoid recess. Normal humeral head and visualized proximal humerus. Tear of the biceps labral complex. Subluxation of the intracapsular long biceps tendon. Normal labrum. Normal capsulo- ligamentous complex. Normal rotator interval. There is mild osteoarthritis of the acromioclavicular articulation. There is a Type II morphology (curved) acromion, with a neutral orientation. There is moderate fluid distention of the subacromial bursa, consistent with moderate subacromial-subdeltoid bursitis. Normal visualized coracohumeral and coracoacromial ligaments. Normal quadrilateral space. Normal axillary space. Normal deltoid muscle. Normal trapezius muscle. MRI/Upper Ext Joint Only(Routine) IMPRESSION: Rotator cuff tear of the supraspinatus and infraspinatus tendons with retraction and muscular atrophy. Tear at the biceps anchor with subluxation of the long head of the biceps. Electronically Signed: Benny Interiano MD at 16:12 EDT , Service support ,
--- NOTE | 2018-11-26 08:41 | PCM.PN.HOSP ---
Subjective: Patient seen and examined. Still complains of right shoulder and knee pain. Review of systems otherwise negative. Labs and vitals reviewed. Vitals/I&O's: Vital Signs Temp Pulse Resp BP Pulse Ox 97.7 F L 82 14 123/76 H 92 11/26/18 03:13 11/26/18 06:17 11/26/18 03:13 11/26/18 06:17 11/26/18 03:13 Oxygen Delivery Method Room Air Weight: 203 lb 0.732 oz Body Mass Index (BMI) 38.3 Orthostatic Vital Signs Start: 11/25/18 16:37 Freq: q24h Status: Active Protocol: Activity Type Activity Date Activity User E-Sign Co-Sign Detail Recorded Client Recorded Date Recorded By Document 11/26/18 06:17 GLC [id number] 11/26/18 06:18 GLC 11/26/18 06:17 Orthostatic Vitals Standing -Blood Pressure (90/60-120/80 mm Hg) 122/69 H -Extremity Use Right Arm -Pulse Rate (60-100 beats/min) 92 Sitting -Blood Pressure (90/60-120/80 mm Hg) 131/84 H -Extremity Use Right Arm -Pulse Rate (60-100 beats/min) 87 Lying -Blood Pressure (90/60-120/80 mm Hg) 123/76 H -Extremity Use Right Arm -Pulse Rate (60-100 beats/min) 82 Intake and Output for Last 24 Hours 11/24/18 11/25/18 11/26/18 23:59 23:59 23:59 Intake Total 1100 / 1100 Output Total 1400 / 1400 Balance -300 / -300 General: Alert, Oriented x3, Cooperative, No apparent distress HEENT: Atraumatic, PERRLA, EOMI, Normocephalic Oral: Dry Mucosa Neck: Supple, No JVD, Negative Carotid Bruits Lungs: Clear to auscultation, Normal air movement, No rhonchi, No wheeze, No rales Cardiovascular: Regular rate, Regular Rhythm, Normal S1, Normal S2, No murmurs Abdomen: Bowel Sounds Present, Soft, Non Tender, Non-Distended, No Hepato-splenomegaly Extremities: No clubbing, No cyanosis, Edema - mild chronic LLE pitting pedal edema Skin: No rashes, No breakdown Musculoskeletal: Tenderness - has mild tenderness to palpation of right knee and just above right knee. Has mild tenderness on palpation of right shoulder. Able to elevate, abduct and adduct right shoulder joint. Lymphatic: No Cervical, Supraclavicular, or Inguinal Adenopathy Neurological: - - power in LLE and LUE is 4-/5 which is due to residual weakness from stroke Psych/Mental Status: Normal Affect, Appropriate, Alert and oriented to time, place, person, mood and affect Laboratory Results 11/25/18 10:10: WBC 5.2, RBC 4.51, Hgb 13.3, Hct 41.2, MCV 91.4, MCH 29.5, MCHC 32.3, RDW 13.1, RDW Differential 43.5, Plt Count 209, MPV 9.7, Immature Gran % (Auto) 0.200, Neut % (Auto) 63.2, Lymph % (Auto) 22.8, [place] % (Auto) 9.4, Eos % (Auto) 4.0, Baso % (Auto) 0.4, Absolute Neuts (auto) 3.3, Absolute Lymphs (auto) 1.19, Total Counted Not Reportable 11/25/18 10:10: Sodium 140, Potassium 3.6, Chloride 105, Carbon Dioxide 36.0 H, Anion Gap -1 L, BUN 9, Creatinine 0.55, Estim Creat Clear Calc 37.60, Est GFR (MDRD) Af Amer 141, Est GFR (MDRD) Non-Af 116, BUN/Creatinine Ratio 16.4, Glucose 88, Calcium 8.8, Troponin I < 0.015 11/25/18 10:50: Urine Color Straw, Urine Clarity Clear, Urine pH 7.0, Ur Specific [place] 1.010, Urine Protein Negative, Urine Glucose (UA) Normal, Urine Ketones Negative, Urine Occult Blood Negative, Urine Nitrite Negative, Urine Bilirubin Negative, Urine Urobilinogen Normal, Ur Leukocyte Esterase Negative, Urine RBC 0 SEEN, Urine WBC 0 SEEN, Ur Squamous Epith Cells 0 SEEN, Urine Bacteria 0 SEEN, Urine Mucus 0 SEEN 11/26/18 05:18: WBC 5.4, RBC 4.21, Hgb 12.2, Hct 37.8, MCV 89.8, MCH 29.0, MCHC 32.3, RDW 12.8, RDW Differential 41.2, Plt Count 209, MPV 10.0, Immature Gran % (Auto) 0.200, Neut % (Auto) 51.7, Lymph % (Auto) 33.0, [place] % (Auto) 9.0, Eos % (Auto) 5.5 H, Baso % (Auto) 0.6, Absolute Neuts (auto) 2.8, Absolute Lymphs (auto) 1.79, Total Counted Not Reportable 11/26/18 05:18: Sodium 139, Potassium 3.6, Chloride 108 H, Carbon Dioxide 29.0, Anion Gap 2 L, BUN 10, Creatinine 0.48 L, Estim Creat Clear Calc 39.50, Est GFR (MDRD) Af Amer 166, Est GFR (MDRD) Non-Af 137, BUN/Creatinine Ratio 21.0 H, Glucose 91, Calcium 7.9 L Diagnostic Data Chest X-Ray 11/25/18 10:05 IMPRESSION: Normal x-ray examination of the chest. Electronically Signed: Brayan Ram, at 10:46 EDT , Service support , Knee X-Ray 11/25/18 14:03 IMPRESSION: Tricompartmental degenerative arthrosis of the knee, including chondrocalcinosis and suprapatellar joint effusion. Differential includes gout as well as calcium pyrophosphate deposition disease (pseudogout, CPPD). Electronically Signed: Dangelo Benedict MD at 19:30 EDT , Service support , Shoulder X-Ray 11/25/18 14:03 IMPRESSION: There is mild cephalad migration of the humeral head which may be indicative of rotator cuff abnormality. There are degenerative changes of the right AC joint. Electronically Signed: Brayden Childers MD at 19:30 EDT , Service support , Current Medications Acetaminophen (Tylenol) 650 mg PO Q6H PRN PRN PRN Reason: Mild Pain (1-3)/Temp > 100.7 F Hydrocodone Bitart/Acetaminophen (Magazine 5mg-325mg) 2 tablet PO BID PRN PRN PRN Reason: SEVERE PAIN (6-1010) Last Admin: 11/25/18 21:10 Dose: 2 tablet Amitriptyline HCl (Elavil) 100 mg PO QHS [facility] Last Admin: 11/25/18 21:10 Dose: 100 mg Atorvastatin Calcium (Lipitor) 10 mg PO QHS [facility] Last Admin: 11/25/18 21:10 Dose: 10 mg Baclofen (Lioresal) 10 mg PO DAILY@0800 [facility] Calcium Carbonate (Tums) [facility] Cholecalciferol (Vitamin D) 2,000 unit [facility] Dextrose (D50w Syringe) 0 gm IV X1 PRN; Protocol PRN Reason: Hypoglycemia Diltiazem HCl (Cardizem Cd) 300 mg PO DAILY [facility] Docusate Sodium (Colace) 100 mg PO BID [facility] Last Admin: 11/25/18 21:10 Dose: 100 mg Enoxaparin Sodium (Lovenox) 40 mg SC DAILY@1000 [facility] Famotidine (Pepcid) 40 mg PO DAILY [facility] Furosemide (Lasix) 40 mg PO DAILY [facility] Gabapentin (Neurontin) [facility] Last Admin: 11/25/18 16:36 Dose: 300 mg Glucagon () 1 mg IM .X1 PRN PRN Reason: Hypoglycemia Ibuprofen (Motrin) 600 mg PO 4X/DAY PRN PRN Reason: PAIN Multivitamins (Multivitamin) 1 tablet PO DAILY@0800 [facility] Oxybutynin Chloride (Ditropan) 2.5 mg PO BID [facility] Potassium Chloride (K-Dur) 10 meq [facility] Sodium Chloride () 5 - 15 ml IV UD PRN PRN Reason: SALINE FLUSH Medical Necessity - Tobacco Use Smoking Status: Never smoker Assessment/Plan All Active Problems Ulcer of left lower extremity, limited to breakdown of skin (Resolved) Hypokalemia (Acute) Multiple falls (Acute) C. difficile diarrhea (Acute) Urinary tract infection due to Enterococcus (Acute) 68-year-old female admitted with complaint of generalized weakness. 1. Generalised weakness and debility due to mechanical falls still complains of right knee and shoulder pain xray of right knee showed tricompartmental degenerative arthrosis of the knee, including chondrocalcinosis and suprapatellar joint effusion xray of her right shoulder showed: mild cephalad migration of humeral head which may be indicative of rotator cuff abnormality will get MRI of the left shoulder and consider orthopedic evaluation PT/OT on board fall precautions 2. Hypertension: on cardizem and furosemide. 3. Hyperlipidemia: on statin DVT prophylaxis: lovenox Code Visit OBSV E&M: 64313 Subsequent observation care L2
--- NOTE | 2018-11-26 08:45 | PN_ITS ---
Subjective: Patient seen and examined. Still complains of right shoulder and knee pain. Review of systems otherwise negative. Labs and vitals reviewed. Vitals/I&O's: Vital Signs Temp Pulse Resp BP Pulse Ox 97.7 F L 82 14 123/76 H 92 11/26/18 03:13 11/26/18 06:17 11/26/18 03:13 11/26/18 06:17 11/26/18 03:13 Oxygen Delivery Method Room Air Weight: 203 lb 0.732 oz Body Mass Index (BMI) 38.3 Orthostatic Vital Signs Start: 11/25/18 16:37 Freq: q24h Status: Active Protocol: Activity Type Activity Date Activity User E-Sign Co-Sign Detail Recorded Client Recorded Date Recorded By Document 11/26/18 06:17 GLC [id number] 11/26/18 06:18 GLC 11/26/18 06:17 Orthostatic Vitals Standing -Blood Pressure (90/60-120/80 mm Hg) 122/69 H -Extremity Use Right Arm -Pulse Rate (60-100 beats/min) 92 Sitting -Blood Pressure (90/60-120/80 mm Hg) 131/84 H -Extremity Use Right Arm -Pulse Rate (60-100 beats/min) 87 Lying -Blood Pressure (90/60-120/80 mm Hg) 123/76 H -Extremity Use Right Arm -Pulse Rate (60-100 beats/min) 82 Intake and Output for Last 24 Hours 11/24/18 11/25/18 11/26/18 23:59 23:59 23:59 Intake Total 1100 / 1100 Output Total 1400 / 1400 Balance -300 / -300 General: Alert, Oriented x3, Cooperative, No apparent distress HEENT: Atraumatic, PERRLA, EOMI, Normocephalic Oral: Dry Mucosa Neck: Supple, No JVD, Negative Carotid Bruits Lungs: Clear to auscultation, Normal air movement, No rhonchi, No wheeze, No rales Cardiovascular: Regular rate, Regular Rhythm, Normal S1, Normal S2, No murmurs Abdomen: Bowel Sounds Present, Soft, Non Tender, Non-Distended, No Hepato- splenomegaly Extremities: No clubbing, No cyanosis, Edema - mild chronic LLE pitting pedal edema Skin: No rashes, No breakdown Musculoskeletal: Tenderness - has mild tenderness to palpation of right knee and just above right knee. Has mild tenderness on palpation of right shoulder. Able to elevate, abduct and adduct right shoulder joint. Lymphatic: No Cervical, Supraclavicular, or Inguinal Adenopathy Neurological: - - power in LLE and LUE is 4-/5 which is due to residual weakness from stroke Psych/Mental Status: Normal Affect, Appropriate, Alert and oriented to time, place, person, mood and affect Laboratory Results 11/25/18 10:10: WBC 5.2, RBC 4.51, Hgb 13.3, Hct 41.2, MCV 91.4, MCH 29.5, MCHC 32.3, RDW 13.1, RDW Differential 43.5, Plt Count 209, MPV 9.7, Immature Gran % (Auto) 0.200, Neut % (Auto) 63.2, Lymph % (Auto) 22.8, [place] % (Auto) 9.4, Eos % (Auto) 4.0, Baso % (Auto) 0.4, Absolute Neuts (auto) 3.3, Absolute Lymphs (auto) 1.19, Total Counted Not Reportable 11/25/18 10:10: Sodium 140, Potassium 3.6, Chloride 105, Carbon Dioxide 36.0 H, Anion Gap -1 L, BUN 9, Creatinine 0.55, Estim Creat Clear Calc 37.60, Est GFR (MDRD) Af Amer 141, Est GFR (MDRD) Non-Af 116, BUN/Creatinine Ratio 16.4, Glucose 88, Calcium 8.8, Troponin I < 0.015 11/25/18 10:50: Urine Color Straw, Urine Clarity Clear, Urine pH 7.0, Ur Specific [place] 1.010, Urine Protein Negative, Urine Glucose (UA) Normal, Urine Ketones Negative, Urine Occult Blood Negative, Urine Nitrite Negative, Urine Bilirubin Negative, Urine Urobilinogen Normal, Ur Leukocyte Esterase Negative, Urine RBC 0 SEEN, Urine WBC 0 SEEN, Ur Squamous Epith Cells 0 SEEN, Urine Bacte benjamin 0 SEEN, Urine Mucus 0 SEEN 11/26/18 05:18: WBC 5.4, RBC 4.21, Hgb 12.2, Hct 37.8, MCV 89.8, MCH 29.0, MCHC 32.3, RDW 12.8, RDW Differential 41.2, Plt Count 209, MPV 10.0, Immature Gran % (Auto) 0.200, Neut % (Auto) 51.7, Lymph % (Auto) 33.0, [place] % (Auto) 9.0, Eos % (Auto) 5.5 H, Baso % (Auto) 0.6, Absolute Neuts (auto) 2.8, Absolute Lymphs (au to) 1.79, Total Counted Not Reportable 11/26/18 05:18: Sodium 139, Potassium 3.6, Chloride 108 H, Carbon Dioxide 29.0, Anion Gap 2 L, BUN 10, Creatinine 0.48 L, Estim Creat Clear Calc 39.50, Est GFR (MDRD) Af Amer 166, Est GFR (MDRD) Non-Af 137, BUN/Creatinine Ratio 21.0 H, Glucose 91, Calcium 7.9 L Diagnostic Data Chest X-Ray 11/25/18 10:05 IMPRESSION: Normal x-ray examination of the chest. Electronically Signed: Brayan Ram, at 10:46 EDT , Service support , Knee X-Ray 11/25/18 14:03 IMPRESSION: Tricompartmental degenerative arthrosis of the knee, including chondrocalcinosis and suprapatellar joint effusion. Differential includes gout as well as calcium pyrophosphate deposition disease (pseudogout, CPPD). Electronically Signed: Dangelo Benedict MD at 19:30 EDT , Service support , Shoulder X-Ray 11/25/18 14:03 IMPRESSION: There is mild cephalad migration of the humeral head which may be indicative of rotator cuff abnormality. There are degenerative changes of the right AC joint. Electronically Signed: Brayden Childers MD at 19:30 EDT , Service support , Current Medications Acetaminophen (Tylenol) 650 mg PO Q6H PRN PRN PRN Reason: Mild Pain (1-3)/Temp > 100.7 F Hydrocodone Bitart/Acetaminophen ([place] 5mg-325mg) 2 tablet PO BID PRN PRN PRN Reason: SEVERE PAIN (6-10/10) Last Admin: 11/25/18 21:10 Dose: 2 tablet Amitriptyline HCl (Elavil) 100 mg PO QHS [facility] Last Admin: 11/25/18 21:10 Dose: 100 mg Atorvastatin Calcium (Lipitor) 10 mg PO QHS [facility] Last Admin: 11/25/18 21:10 Dose: 10 mg Baclofen (Lioresal) 10 mg PO DAILY@0800 [facility] Calcium Carbonate (Tums) 1,[facility] Cholecalciferol (Vitamin D) 2,000 unit PO [facility]ILY[facility] Dextrose (D50w Syringe) 0 gm IV X1 PRN; Protocol PRN Reason: Hypoglycemia Diltiazem HCl (Cardizem Cd) 300 mg PO DAILY [facility] Docusate Sodium (Colace) 100 mg PO BID [facility] Last Admin: 11/25/18 21:10 Dose: 100 mg Enoxaparin Sodium (Lovenox) 40 mg SC DAILY@1000 [facility] Famotidine (Pepcid) 40 mg PO DAILY [facility] Furosemide (Lasix) 40 mg PO DAILY [facility] Gabapentin (Neurontin) 300 [facility] Last Admin: 11/25/18 16:36 Dose: 300 mg Glucagon () 1 mg IM .X1 PRN PRN Reason: Hypoglycemia Ibuprofen (Motrin) 600 mg PO 4X/DAY PRN PRN Reason: PAIN Multivitamins (Multivitamin) 1 tablet PO DAILY@0800 [facility] Oxybutynin Chloride (Ditropan) 2.5 mg PO BID [facility] Potassium Chloride (K-Dur) 10 meq PO [facility]ILYUN[facility] Sodium Chloride () 5 - 15 ml IV UD PRN PRN Reason: SALINE FLUSH Medical Necessity - Tobacco Use Smoking Status: Never smoker Assessment/Plan All Active Problems Ulcer of left lower extremity, limited to breakdown of skin (Resolved) Hypokalemia (Acute) Multiple falls (Acute) C. difficile diarrhea (Acute) Urinary tract infection due to Enterococcus (Acute) 68-year-old female admitted with complaint of generalized weakness. 1. Generalised weakness and debility due to mechanical falls * still complains of right knee and shoulder pain * xray of right knee showed tricompartmental degenerative arthrosis of the knee, including chondrocalcinosis and suprapatellar joint effusion * xray of her right shoulder showed: mild cephalad migration of humeral head which may be indicative of rotator cuff abnormality * will get MRI of the left shoulder and consider orthopedic evaluation * PT/OT on board * fall precautions * * 2. Hypertension: on cardizem and furosemide. 3. Hyperlipidemia: on statin DVT prophylaxis: lovenox Code Visit OBSV E&M: [id number] Subsequent observation care L2
[2018-11-26 09:00] VITALS: BP 129/67; PULSE 84; RESP 16; TEMP 36.7; O2SAT 94
[2018-11-26] MEDS: Docusate Sodium 100 MG Capsule PO ×2 (09:27→21:02)
[2018-11-26] MEDS: HYDROcodone Bitartrate/Apap 5/325 Tablet PO (09:27)
[2018-11-26] MEDS: Multivitamins,Therapeutic Tablet 1 TABLET PO (09:27)
[2018-11-26] MEDS: dilTIAZem CD 300 MG Capsule PO (09:28)
[2018-11-26] MEDS: Oxybutynin 5 MG Tablet 2.5 MG PO ×2 (09:28→21:02)
[2018-11-26] MEDS: Baclofen 10 MG Tablet PO (09:28)
[2018-11-26] MEDS: Gabapentin 300 MG Capsule PO ×2 (09:28→18:11)
[2018-11-26] MEDS: Calcium Carbonate 500 MG Tablet 1000 MG PO (09:28)
[2018-11-26] MEDS: Enoxaparin 40 MG/0.4 ML Syringe SC (09:28)
[2018-11-26] MEDS: Famotidine 20 MG Tablet 40 MG PO (09:29)
[2018-11-26] MEDS: Furosemide 40 MG Tablet PO (09:29)
[2018-11-26 10:36] LABS: Uric Acid 4.9 mg/dL (2.6-6.0)
--- NOTE | 2018-11-26 11:45 | CASEMGMT ---
RN CM discussed need for additional therapy at discharge with [facility]. Per [facility] [employer] [facility] no additional therapy recommended at discharge. CM will continue to monitor this patient for discharge needs.
[2018-11-26 15:00] VITALS: BP 149/80; PULSE 82; RESP 18; TEMP 36.8; O2SAT 99
--- NOTE | 2018-11-26 16:39 | PCM.DC ---
You will use the following diet at home:: Cardiac Your food should be the consistency of: Regular Discharge Activity: Return to Normal Activity Weight Bearing Status: Weight bearing as tolerated Call your doctor if you observe: Fever of 101 or Higher, Uncontrolled pain Allergies/Adverse Reactions: Allergies hydrochlorothiazide Allergy (Verified 03/19/18 14:54) Other metronidazole [From Flagyl] Allergy (Verified 03/19/18 14:54) Unknown dizziness triamterene Adverse Reaction (Verified 02/18/17 20:48) Other Medications to take at Discharge Amitriptyline HCl [Elavil] 100 mg PO QHS 04/09/15 Atorvastatin Calcium [Lipitor] 10 mg PO QHS 04/09/15 Diltiazem HCl [Diltiazem 24Hr ER] 300 mg PO DAILY 04/09/15 Gabapentin [Neurontin] 300 mg PO BID 04/09/15 Docusate Sodium [Colace] 100 mg PO BID 02/09/17 Famotidine [Pepcid] 40 mg PO DAILY 02/09/17 Furosemide [Lasix] 40 mg PO DAILY 02/09/17 Multivitamin [Daily Multiple Vitamin] 1 each PO DAILY 02/09/17 Hydrocodone Bitart/[place] 5-325 [[place] 5/325] 2 tablet PO BID PRN PRN #40 tablet 02/21/17 Cholecalciferol (Vitamin D3) [Vitamin D3] 2,000 unit PO DAILY 03/19/18 Potassium Chloride [K-Dur] 10 meq PO DAILY 03/19/18 Baclofen [Lioresal] 10 mg PO DAILY 11/25/18 Calcium Carbonate [Calcium] 1,200 mg PO DAILY 11/25/18 Ibuprofen 600 mg PO 4X/DAY PRN 11/25/18 Oxybutynin [Ditropan] 2.5 mg PO BID 11/25/18 Primary Care Physician: Miguel Teresa MD [Primary Care Provider] - Please follow up with your Primary Care Physician in: one week Test Results: Test results from this visit will be discussed in further detail at your follow-up appointment, if applicable. Please Follow Up With: Dima Pettit DO - [phone] When: 1 week; call office for an appointment Proposed Discharge Date: 11/26/18
--- NOTE | 2018-11-26 16:42 | DCINST_ITS ---
You will use the following diet at home:: Cardiac Your food should be the consistency of: Regular Discharge Activity: Return to Normal Activity Weight Bearing Status: Weight bearing as tolerated Call your doctor if you observe: Fever of 101 or Higher, Uncontrolled pain Allergies/Adverse Reactions: Allergies hydrochlorothiazide Allergy (Verified 03/19/18 14:54) Other metronidazole [From Flagyl] Allergy (Verified 03/19/18 14:54) Unknown dizziness triamterene Adverse Reaction (Verified 02/18/17 20:48) Other Medications to take at Discharge Amitriptyline HCl [Elavil] 100 mg PO QHS 04/09/15 Atorvastatin Calcium [Lipitor] 10 mg PO QHS 04/09/15 Diltiazem HCl [Diltiazem 24Hr ER] 300 mg PO DAILY 04/09/15 Gabapentin [Neurontin] 300 mg PO BID 04/09/15 Docusate Sodium [Colace] 100 mg PO BID 02/09/17 Famotidine [Pepcid] 40 mg PO DAILY 02/09/17 Furosemide [Lasix] 40 mg PO DAILY 02/09/17 Multivitamin [Daily Multiple Vitamin] 1 each PO DAILY 02/09/17 Hydrocodone Bitart/Apap 5-325 [[place] 5/325] 2 tablet PO BID PRN PRN #40 tablet 02/21/17 Cholecalciferol (Vitamin D3) [Vitamin D3] 2,000 unit PO DAILY 03/19/18 Potassium Chloride [K-Dur] 10 meq PO DAILY 03/19/18 Baclofen [Lioresal] 10 mg PO DAILY 11/25/18 Calcium Carbonate [Calcium] 1,200 mg PO DAILY 11/25/18 Ibuprofen 600 mg PO 4X/DAY PRN 11/25/18 Oxybutynin [Ditropan] 2.5 mg PO BID 11/25/18 Primary Care Physician: Miguel Teresa MD [Primary Care Provider] - Please follow up with your Primary Care Physician in: one week Test Results: Test results from this visit will be discussed in further detail at your follow- up appointment, if applicable. Please Follow Up With: Dima Pettit DO - [phone] When: 1 week; call office for an appointment Proposed Discharge Date: 11/26/18
[2018-11-26] MEDS: Ibuprofen 600 MG Tablet PO (18:11)
[2018-11-26 20:11] VITALS: BP 152/69; PULSE 81; RESP 18; TEMP 36.6; O2SAT 96
[2018-11-26] MEDS: Atorvastatin Calcium 10 MG Tablet PO (21:02)
[2018-11-26] MEDS: Amitriptyline 100 MG Tablet PO (21:03)
[2018-11-27 03:01] VITALS: BP 158/90; PULSE 80; RESP 18; TEMP 36.8; O2SAT 95
[2018-11-27 07:43] VITALS: BP 129/75; PULSE 75; RESP 18; TEMP 36.4; O2SAT 96
[2018-11-27] MEDS: HYDROcodone Bitartrate/Apap 5/325 Tablet PO ×2 (07:44→13:52)
[2018-11-27] MEDS: Gabapentin 300 MG Capsule PO (07:47)
[2018-11-27] MEDS: Calcium Carbonate 500 MG Tablet 1000 MG PO (07:47)
[2018-11-27] MEDS: Multivitamins,Therapeutic Tablet 1 TABLET PO (07:47)
[2018-11-27] MEDS: Baclofen 10 MG Tablet PO (07:47)
[2018-11-27] MEDS: Furosemide 40 MG Tablet PO (07:50)
[2018-11-27] MEDS: dilTIAZem CD 300 MG Capsule PO (09:26)
[2018-11-27] MEDS: Famotidine 20 MG Tablet 40 MG PO (09:27)
[2018-11-27] MEDS: Oxybutynin 5 MG Tablet 2.5 MG PO (09:27)
[2018-11-27] MEDS: Docusate Sodium 100 MG Capsule PO (09:27)
[2018-11-27] MEDS: Enoxaparin 40 MG/0.4 ML Syringe SC (09:27)
--- NOTE | 2018-11-27 09:27 | PCM.DC ---
You will use the following diet at home:: Cardiac Your food should be the consistency of: Regular Your liquids should be the consistency of: Regular/Thin Discharge Activity: Return to Normal Activity Weight Bearing Status: Weight bearing as tolerated Call your doctor if you observe: Uncontrolled pain, - - mechanical falls Instructions: Understanding Rotator Cuff Injuries, ED Torn Rotator Cuff Allergies/Adverse Reactions: Allergies hydrochlorothiazide Allergy (Verified 03/19/18 14:54) Other metronidazole [From Flagyl] Allergy (Verified 03/19/18 14:54) Unknown dizziness triamterene Adverse Reaction (Verified 02/18/17 20:48) Other Medications to take at Discharge Amitriptyline HCl [Elavil] 100 mg PO QHS 04/09/15 Atorvastatin Calcium [Lipitor] 10 mg PO QHS 04/09/15 Diltiazem HCl [Diltiazem 24Hr ER] 300 mg PO DAILY 04/09/15 Gabapentin [Neurontin] 300 mg PO BID 04/09/15 Docusate Sodium [Colace] 100 mg PO BID 02/09/17 Famotidine [Pepcid] 40 mg PO DAILY 02/09/17 Furosemide [Lasix] 40 mg PO DAILY 02/09/17 Multivitamin [Daily Multiple Vitamin] 1 each PO DAILY 02/09/17 Hydrocodone Bitart/Apap 5-325 [[place] 5/325] 2 tablet PO BID PRN PRN #40 tablet 02/21/17 Cholecalciferol (Vitamin D3) [Vitamin D3] 2,000 unit PO DAILY 03/19/18 Potassium Chloride [K-Dur] 10 meq PO DAILY 03/19/18 Baclofen [Lioresal] 10 mg PO DAILY 11/25/18 Calcium Carbonate [Calcium] 1,200 mg PO DAILY 11/25/18 Ibuprofen 600 mg PO 4X/DAY PRN 11/25/18 Oxybutynin [Ditropan] 2.5 mg PO BID 11/25/18 Primary Care Physician: Miguel Teresa MD [Primary Care Provider] - Please follow up with your Primary Care Physician in: one week Test Results: Test results from this visit will be discussed in further detail at your follow-up appointment, if applicable. Please Follow Up With: Dima Pettit, - [phone] When: one week- please call office to make an appointment Proposed Discharge Date: 11/27/18
[2018-11-27 09:30] VITALS: BP 98/77; PULSE 89; RESP 18; TEMP 36.6; O2SAT 96
--- NOTE | 2018-11-27 09:30 | DCINST_ITS ---
You will use the following diet at home:: Cardiac Your food should be the consistency of: Regular Your liquids should be the consistency of: Regular/Thin Discharge Activity: Return to Normal Activity Weight Bearing Status: Weight bearing as tolerated Call your doctor if you observe: Uncontrolled pain, - - mechanical falls Instructions: Understanding Rotator Cuff Injuries, ED Torn Rotator Cuff Allergies/Adverse Reactions: Allergies hydrochlorothiazide Allergy (Verified 03/19/18 14:54) Other metronidazole [From Flagyl] Allergy (Verified 03/19/18 14:54) Unknown dizziness triamterene Adverse Reaction (Verified 02/18/17 20:48) Other Medications to take at Discharge Amitriptyline HCl [Elavil] 100 mg PO QHS 04/09/15 Atorvastatin Calcium [Lipitor] 10 mg PO QHS 04/09/15 Diltiazem HCl [Diltiazem 24Hr ER] 300 mg PO DAILY 04/09/15 Gabapentin [Neurontin] 300 mg PO BID 04/09/15 Docusate Sodium [Colace] 100 mg PO BID 02/09/17 Famotidine [Pepcid] 40 mg PO DAILY 02/09/17 Furosemide [Lasix] 40 mg PO DAILY 02/09/17 Multivitamin [Daily Multiple Vitamin] 1 each PO DAILY 02/09/17 Hydrocodone Bitart/Apap 5-325 [[place] 5/325] 2 tablet PO BID PRN PRN #40 tablet 02/21/17 Cholecalciferol (Vitamin D3) [Vitamin D3] 2,000 unit PO DAILY 03/19/18 Potassium Chloride [K-Dur] 10 meq PO DAILY 03/19/18 Baclofen [Lioresal] 10 mg PO DAILY 11/25/18 Calcium Carbonate [Calcium] 1,200 mg PO DAILY 11/25/18 Ibuprofen 600 mg PO 4X/DAY PRN 11/25/18 Oxybutynin [Ditropan] 2.5 mg PO BID 11/25/18 Primary Care Physician: Miguel Teresa MD [Primary Care Provider] - Please follow up with your Primary Care Physician in: one week Test Results: Test results from this visit will be discussed in further detail at your follow- up appointment, if applicable. Please Follow Up With: Dima Pettit, - [phone] When: one week- please call office to make an appointment Proposed Discharge Date: 11/27/18
--- NOTE | 2018-11-27 09:30 | DS.PCM_ITS ---
Discharge Date and Diagnosis Date of Admission: 11/25/18 Date of Discharge: 11/27/18 - Primary Discharge Diagnosis debility due to mechanical fall right rotator cuff tear - Secondary Discharge Diagnosis Chronic Problems Foot drop, left (Chronic) Edema leg (Chronic) History of stroke (Chronic) Hospital Course and Treatment Imaging Results: Diagnostic Data Chest X-Ray 11/25/18 10:05 IMPRESSION: Normal x-ray examination of the chest. Electronically Signed: Brayan Ram, at 10:46 EDT , Service support , Knee X-Ray 11/25/18 14:03 IMPRESSION: Tricompartmental degenerative arthrosis of the knee, including chondrocalcinosis and suprapatellar joint effusion. Differential includes gout as well as calcium pyrophosphate deposition disease (pseudogout, CPPD). Electronically Signed: Dangelo Benedict MD at 19:30 EDT , Service support , Shoulder X-Ray 11/25/18 14:03 IMPRESSION: There is mild cephalad migration of the humeral head which may be indicative of rotator cuff abnormality. There are degenerative changes of the right AC joint. Electronically Signed: Brayden Childers MD at 19:30 EDT , Service support , Upper Extremity MRI 11/26/18 07:21 IMPRESSION: Rotator cuff tear of the supraspinatus and infraspinatus tendons with retraction and muscular atrophy. Tear at the biceps anchor with subluxation of the long head of the biceps. Electronically Signed: Benny Interiano MD at 16:12 EDT , Service support , Operations: None Procedures: None Summary of Care Provided: The patient is a 68 year old F patient who was admitted through the ED on 11/25/18 wth a complaint of weakness and debility. She states she got up to use the bathroom in the middle of the night and was unable to get up of the commode and had to slide down to the floor. Her daughter was not able to get her up and says that called the squad to get her back in bed. Upon waking up this morning she realized she was very weak and could barely get out of bed so she called the squad again and she was brought to the ED. She does admit to a fall a few days ago after she tripped in some water and landed on her backside. She had noticed that she had been having pain just above her right knee and also her right shoulder for the past 2 days. She however says that she does not think that this was due to the fall she had. She has not had any other falls recently. She denied any fever chills, lightheadedness, dizziness or palpitations, chest pain, diarrhea vomiting. 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 She was admitted through the ED on 11/25/18 with a complaint of new onset generalised weakness of one day duration. In the ED, vitals were stable and chemistry was significant only for bicarb of 36. CBC was unremarkable and troponin was negative. CXR showed no acute cardiopulmonary process. She was admitted to be managed for generalised weakness and debility. PT/OT was c onsulted. Patient complained of right shoulder and knee pain. Xrays of the knee showed tricompartmental degenerative arthrosis of the knee including chondrocalcinosis and suprapatellar joint effusion. X-ray of the shoulder showed mild cephalad migration of the humeral head possibly indicating of rotator cuff abnormality as well as degenerative changes of the right AC joint. She had MRI of the right shoulder due to persistent shoulder pain which showed rotator cuff tear of the supraspinatus and infraspinatus tendons of the right shoulder with retraction and muscular atrophy as well as tear of the biceps anchor with subluxation of the long head of the biceps. MRI was discussed with Dr. Newell who wanted patient follow-up with him on outpatient basis. She remained stable and was discharged home with home PT OT and home health on 11/27/2018. She is to follow-up with orthopedic surgery Dr. Pettit within 1 week. Patient seen and examined prior to discharge. Said pain was well controlled. Review of systems otherwise negative. Labs and vitals reviewed. Home medication reviewed on consult. o/e: Vital Signs Height 5 ft 1 in Weight: 203 lb 0.732 oz Weight in Pounds 203.0 lbs Pulse Ox 96 Temperature 97.6 F Pulse Rate [Standing] 92 Pulse Rate [Sitting] 87 Pulse Rate [Lying] 82 Pulse Rate 75 Respiratory Rate 18 Blood Pressure [Standing] 122/69 Blood Pressure [Sitting] 131/84 Blood Pressure [Lying] 123/76 Blood Pressure 129/75 Blood Pressure Position Semi-Fowlers General: Alert, Oriented x3, Cooperative, No apparent distress HEENT: Atraumatic, PERRLA, EOMI, Normocephalic Oral: Dry Mucosa Neck: Supple, No JVD, Negative Carotid Bruits Lungs: Clear to auscultation, Normal air movement, No rhonchi, No wheeze, No rales Cardiovascular: Regular rate, Regular Rhythm, Normal S1, Normal S2, No murmurs Abdomen: Bowel Sounds Present, Soft, Non Tender, Non-Distended, No Hepato- splenomegaly Extremities: No clubbing, No cyanosis, Edema - mild chronic LLE pitting pedal edema Skin: No rashes, No breakdown Musculoskeletal: Tenderness - has mild tenderness to palpation of right knee and just above right knee. Has mild tenderness on palpation of right shoulder. Able to elevate, abduct and adduct right shoulder joint. Lymphatic: No Cervical, Supraclavicular, or Inguinal Adenopathy Neurological: - - power in LLE and LUE is 4-/5 which is due to residual weakness from stroke Psych/Mental Status: Normal Affect, Appropriate, Alert and oriented to time, place, person, mood and affect Plan as above. - Physical Exam Vital Signs Temp Pulse Resp BP Pulse Ox 97.6 F L 75 18 129/75 H 96 11/27/18 07:43 11/27/18 07:43 11/27/18 07:43 11/27/18 07:43 11/27/18 07:43 Oxygen Delivery Method Room Air Weight: 203 lb 0.732 oz Body Mass Index (BMI) 38.3 Intake and Output for Last 24 Hours 11/25/18 11/26/18 11/27/18 23:59 23:59 23:59 Intake Total 1100 / 1100 710 / 710 120 / 120 Output Total 1400 / 1400 1800 / 1800 200 / 200 Balance -300 / -300 -1090 / -1090 -80 / -80 Laboratory Tests Past 24 Hrs 11/26/18 05:18 Uric Acid 4.9 Discharge Diet: Low fat/ Low Cholesterol Discharge Activity: Return to Normal Activity Weight Bearing Status: Weight bearing as tolerated Call your doctor if you observe: Uncontrolled pain, - - mechanical falls Home Medications: Medications to take at Discharge Amitriptyline HCl [Elavil] 100 mg PO QHS 04/09/15 Atorvastatin Calcium [Lipitor] 10 mg PO QHS 04/09/15 Diltiazem HCl [Diltiazem 24Hr ER] 300 mg PO DAILY 04/09/15 Gabapentin [Neurontin] 300 mg PO BID 04/09/15 Docusate Sodium [Colace] 100 mg PO BID 02/09/17 Famotidine [Pepcid] 40 mg PO DAILY 02/09/17 Furosemide [Lasix] 40 mg PO DAILY 02/09/17 Multivitamin [Daily Multiple Vitamin] 1 each PO DAILY 02/09/17 Hydrocodone Bitart/Apap 5-325 [[place] 5/325] 2 tablet PO BID PRN PRN #40 tablet 02/21/17 Cholecalciferol (Vitamin D3) [Vitamin D3] 2,000 unit PO DAILY 03/19/18 Potassium Chloride [K-Dur] 10 meq PO DAILY 03/19/18 Baclofen [Lioresal] 10 mg PO DAILY 11/25/18 Calcium Carbonate [Calcium] 1,200 mg PO DAILY 11/25/18 Ibuprofen 600 mg PO 4X/DAY PRN 11/25/18 Oxybutynin [Ditropan] 2.5 mg PO BID 11/25/18 Primary Care Physician: Miguel Teresa MD [Primary Care Provider] - Please follow up with your Primary Care Physician in: one week Please Follow Up With: Dima Pettit, - [phone] When: one week- please call office to make an appointment Patient Instructions: Understanding Rotator Cuff Injuries, ED Torn Rotator Cuff Disposition: Home with Home Health Minutes spent on discharge:: 40 Patient Condition:: Stable Medical Necessity - Tobacco Use Smoking Status: Never smoker Meaningful Use Info Meaningful Use Diagnoses (Choose all that apply): None applicable Code Visit Inpatient E&M: 09356 Disch Hosp
--- NOTE | 2018-11-27 10:37 | CASEMGMT ---
JERRICA DIMAS in to discuss therapy at discharge with patient. Patient states she would like home therapy with [facility], who she has had in the past. Patient also inquired regarding someone to come help her get dressed daily. Patient lives with daughter who works. JERRICA DIMAS instructed that patient would need cafeteria aide to assist with dressing. Patient declined private duty list and states that he son own [facility] company. JERRICA DIMAS sent referral to [facility] and they are not in-network with insurance. JERRICA DIMAS looked up in-network [facility] and updated patient. Patient is agreeable [facility] or [facility]. [facility] called and they do not accept patient's insurance. JERRICA DIMAS sent referral to [facility] and they are reviewing referral at this time. JERRICA DIMAS will continue to follow this patient and plan for a safe discharge.
--- NOTE | 2018-11-27 12:35 | CASEMGMT ---
RN CM Note: RENNER form explained to pt re: dx of weakness and debility, rotator cuff abnormality to be followed as oupt meeting Observation criteria. Ins coverage per her policy and self administered medications may not be covered under ins plan. Form read to pt prior to signature. No questions at this time. Form to chart and copy for pt placed in her folder. Heidy BECERRIL BSN ACM
--- NOTE | 2018-11-27 14:05 | CASEMGMT ---
JERRICA DIMAS received call from [facility] and they are able to accept the patient with start of care for 11/28/18. JERRICA DIMAS updated patient with [facility] company and acceptance. Patient had no further needs or concerns at this time.
== END 2018-11-27 14:07 | disposition home health service (06) ==
LOC: ED 10:08 → MS3 12:02
PROVIDERS: Admitting Provider Student in an Organized Health Care Education/Training Program; Emergency Provider Emergency Medicine; Family Provider Family Medicine; PCP Family Medicine; Visit Provider Student in an Organized Health Care Education/Training Program
DX: R53.1 Weakness (principal); S46.011A Strain of muscle(s) and tendon(s) of the rotator cuff of right shoulder, initial encounter; W01.0XXA Fall on same level from slipping, tripping and stumbling without subsequent striking against object, initial encounter; Y93.9 Activity, unspecified; Y92.9 Unspecified place or not applicable; I69.354 Hemiplegia and hemiparesis following cerebral infarction affecting left non-dominant side; M21.372 Foot drop, left foot; Z79.899 Other long term (current) drug therapy; M25.561 Pain in right knee; E78.5 Hyperlipidemia, unspecified; I10 Essential (primary) hypertension
CPT/HCPCS: 36415; 71045; 73030; 73221; 73564; 80048; 81001; 84484; 84550; 85025; 93005; 96360; 96361; 96372; 97162; 97166; 97530; 99218; 99285; J7030; A4216; G0378

== ENCOUNTER 2019-04-24 15:00 | Outpatient (RCR) | payer MEDICARE, MEDICAID, SELFPAY ==
[2018-12-05 10:29] VITALS: BMI 38.3
--- NOTE | 2019-05-15 07:49 | HP.PTEVAL_ITS ---
Patient's Visit Information AMINATA LEE is a 69 year old F referred to Physical Therapy by Miguel Teresa MD with a diagnosis of Frequent Falls. Date of Evaluation: 03/13/19 Physical Therapist: Checo Araiza DPT - Visit Plan Frequency: 2x /Week Duration: 4-6 Weeks Plan: Start with endurance exercises, BLE strengthening, dynamic balance activities and static balance activities. Progress gait/stability as able. - Subjective Findings: Pt. is here today for her initial evaluation with diagnosis of recurrent falls and balance inconsistentcy. Pt. reports having a few falls over the past few months, without injuiry. Pt. had a CVA 30+ years ago and has been dealing with this since. Pt. has L sided weakness, but no pain. Pt. has spastic/contracture of LUE, but has some movement in LLE. Pt. reports living w ith her daughter, but she is able to do most activites. Pt. still drives and does all ADLs. Pt. is hopeful to increase her balance and safety to maintain independent. - Objective POSTURE: PT. has increased R lateral lean. Pt. has ~25% WBing on LLE and hangs in TKE on her L knee. Pt. has general flexed posture. PALPATION: Increased contraction on L UE, spastic. NEURO: increased DTR on LLE, normal on R. PT. has decreased sensation in LUE/LLE. ROM: Pt. has tight B HS, tp has decreased hip extension to neutral bilaterally. Decreased DF on L ankle to 5deg. Pt. has jimbo l knee ROM bilat. MMT: RLE- 5/5 throughuot. LLE0- ankle- DF 0/10, PF 4/5; knee- ext 4-/5, flexion 4/5; hip- flexion 4/5, abd 3/5, ext 4/5. Core strength- poor. GAIT: PT. ambulates with cane, with increased hip circumduction on LLE, Pt. does no wear an L AFO, but should. PT. has increased hip flexion on LLE to have foot clearance. STAIRS: Pt. has large R lateral lean to advance LLE. - Balance Scores Functional Gait Assessment Score: 7 % Disability: 76.6700 - Goals Goal 1:: Pt. to be I with all HEP. Goal Time Frame: 4-6 Weeks Goal 2:: Pt. to have increased LLE strength increased by 1/2 grade throughout. Goal Time Frame: 4-6 Weeks Goal 3:: Pt. to ambulate unlmited distances with cane Independently without LOB. Goal Time Frame: 4-6 Weeks Goal 4:: Pt. to have increased FGA score to 12/30 indicating improved stability with gait/balance. Goal Time Frame: 4-6 Weeks Goal 5:: Pt. to have increased HS length to 70deg in 90/90 positioning. Goal Time Frame: 4-6 Weeks - Rehabilitation Potential Physical Therapy Diagnosis: Pt. has signs and symptoms consistent with frequent falls. Pt. has marked balance issues as seen in FGA and marked waekness in BLEs. Pt. would benefit from PT to work on above limitations progressing with ga it/strength and balance as able. Rehabilitation Potential: Fair - Anticipated Interventions Patient/Client Instruction: Educate patient on: Condition, Plan of Care, Risk Factors, Benefits of Fitness Program For the Purpose of:: To improve decision making, To facilitate caregiver knowledge, To improve self management, To prevent re-injury, To improve ability to perform tasks related to life management, To improve tolerance to ADL's Therapeutic Exercise to Include: Strength training, Power training, Balance training, Coordination, Agility training, Body mechanics, Postural training, Flexibilty training, Gait and locomotor training For the Purpose of:: To increase ROM, To improve nutrient delivery to tissue, To increase oxygenation perfusion, To improve muscle performance and motor function, To improve ability to perform ADL's, To improve gait and locomotor functions, To improve health of tissue, To increase flexibility/ROM, To improve endurance, To improve balance, To improve safety with gait Thank you for the opportunity to evaluate your patient. For Medicare and Medicare HMO plans, please review the plan of care and approve it. It will need to be FAXED BACK to us at [phone] for Medicare purposes. For Medicare only, by signing this I certify the plan of care. Please let me know if there are questions or concerns regarding this plan of care. Physician Signature: Date:
--- NOTE | 2019-05-15 08:03 | HP.PTREVAL ---
Miguel Teresa MD, It has been my pleasure to treat AMINATA LEE over the last 5 visits for Frequent Falls. Please see the progress note below for an update on the physical therapy plan of care! Subjective: Pt. reprots being 25% better overall. No recent falls. Pt. is supposed to get an AFO, but has not recieved one yet. PT. reprots no pain pre treatment. Objective/Function: ROM: pt. cotniunes to be light in B HS, R better than L. PT. has some improvement in hip flexor and hip abd strength, but distal LE continues to be weak. Pt. is able to ambulate with and without cane, improved stability with cane. Pt. prefers to not use. Pt. has not received her AFO yet. FGA 04/20 Plan Plan: I would like to continue with her with her balance and work on walking with her AFO once she receives it. Pt. cotninues to have distal LE weakness and would beneift from increased strengthenign and stability exercises. Goals Goal 1:: Pt. to be I with all HEP. Goal Time Frame: 4-6 Weeks Goal Progress: Progressing Goal 2:: Pt. to have increased LLE strength increased by 1/2 grade throughout. Goal Time Frame: 4-6 Weeks Goal Progress: Progressing Goal 3:: Pt. to ambulate unlmited distances with cane Independently without LOB. Goal Time Frame: 4-6 Weeks Goal Progress: Progressing Goal 4:: Pt. to have increased FGA score to 12/30 indicating improved stability with gait/balance. Goal Time Frame: 4-6 Weeks Goal Progress: Progressing Goal 5:: Pt. to have increased HS length to 70deg in 90/90 positioning. Goal Time Frame: 4-6 Weeks Goal Progress: Progressing Anticipated Interventions Patient/Client Instruction: Educate patient on: Condition, Plan of Care, Risk Factors, Benefits of Fitness Program For the Purpose of:: To improve decision making, To facilitate caregiver knowledge, To improve self management, To prevent re-injury, To improve ability to perform tasks related to life management, To improve tolerance to ADL's Therapeutic Exercise to Include: Strength training, Power training, Balance training, Coordination, Agility training, Body mechanics, Postural training, Flexibilty training, Gait and locomotor training For the Purpose of:: To increase ROM, To improve nutrient delivery to tissue, To increase oxygenation perfusion, To improve muscle performance and motor function, To improve ability to perform ADL's, To improve gait and locomotor functions, To improve health of tissue, To increase flexibility/ROM, To improve endurance, To improve balance, To improve safety with gait Please do not hesitate to contact me at [phone] by phone or if you have questions or concerns regarding this new plan of care! Sincerely, RONALDO BoatengT
--- NOTE | 2019-08-24 09:06 | HP.PT.NRP ---
HP - Discharge Summary (1) - Patient Information AMINATA LEE was seen in my office for initial evaluation on 03/13/19. The following Plan of Care was established for this patient: Initial Frequency: 2x /Week Initial Duration: 4-6 Weeks - Anticipated Interventions Patient/Client Instruction: Educate patient on: Condition, Plan of Care, Risk Factors, Benefits of Fitness Program For the Purpose of:: To improve decision making, To facilitate caregiver knowledge, To improve self management, To prevent re-injury, To improve ability to perform tasks related to life management, To improve tolerance to ADL's Therapeutic Exercise to Include: Strength training, Power training, Balance training, Coordination, Agility training, Body mechanics, Postural training, Flexibilty training, Gait and locomotor training For the Purpose of:: To increase ROM, To improve nutrient delivery to tissue, To increase oxygenation perfusion, To improve muscle performance and motor function, To improve ability to perform ADL's, To improve gait and locomotor functions, To improve health of tissue, To increase flexibility/ROM, To improve endurance, To improve balance, To improve safety with gait This patient was last seen in our office 05/15/19. Pertinent comments regarding their Physical therapy will appear below: Pt. was seen for her gait difficulty and spasticity. Pt. has not been seen in several months and will be DC from PT at this point intime. At this point I will be discontinuing this patient from physical therapy. I would be happy to see this patient again in the future if found appropriate by the physician. Thank you! Checo Araiza DPT
== END 2019-04-24 17:00 | disposition home or self-care (01) ==
LOC: PT 15:00
PROVIDERS: Family Provider Family Medicine; PCP Family Medicine; Referring Provider Family Medicine; Visit Provider Family Medicine
DX: R29.6 Repeated falls (principal)
CPT/HCPCS: 97110; 97161; 97530

== ENCOUNTER → 2019-05-07 13:39 | Outpatient (CLI) | payer MEDICARE, SELFPAY ==
[2018-12-05 10:29] VITALS: BMI 38.3
[2019-05-07 17:42] LABS: Amphetamine Urine VISTA NEGATIVE (<1000 ng/mL); Barbiturate Urine VISTA NEGATIVE (< 200 ng/mL); Benzodiazepine Urine VISTA NEGATIVE (< 200 ng/mL); Cocaine Urine VISTA NEGATIVE (< 300 ng/mL); Ecstacy Urine VISTA NEGATIVE (< 500 ng/mL); Methadone Urine VISTA NEGATIVE (< 300 ng/mL); PCP Urine VISTA NEGATIVE (< 25 ng/mL); THC Urine VISTA NEGATIVE (< 50 ng/mL); Vista UDS pH Range 5
== END ==
PROVIDERS: Family Provider Family Medicine; PCP Family Medicine; Referring Provider Anesthesiology Pain Medicine; Visit Provider Anesthesiology Pain Medicine
DX: F11.20 Opioid dependence, uncomplicated (principal)
CPT/HCPCS: 80307

== ENCOUNTER 2019-05-22 12:23 | Emergency (ER) | payer MEDICARE, SELFPAY ==
[2018-12-05 10:29] VITALS: BMI 38.3
[2019-05-22 12:24] VITALS: BP 143/68; PULSE 88; RESP 17; TEMP 36.9; O2SAT 95; BMI 38.3
--- NOTE | 2019-05-22 12:44 | RAD_ITS ---
STUDY: X-RAY CHEST REASON FOR EXAM: Female, 69 years old. Chest pain. TECHNIQUE: PA and lateral views of the chest. COMPARISON: Comparison is made with prior study dated November 25, 2018. FINDINGS: The lungs are clear and expanded. There is no demonstrated pleural abnormality. Normal size heart. Normal mediastinum and [place]. Normal visualized pulmonary arteries. There is atherosclerotic tortuosity of the aortic arch and descending thoracic aorta. There are diffuse degenerative changes of the visualized thoracic spine. Almost complete collapse of the T12-L1 vertebrae. Kyphotic deformity at that site. There is degenerative osteoarthritis of the bilateral shoulders. There is no demonstrated abnormality of the visualized soft tissue structures of the upper abdomen. RAD/Chest PA and Lateral IMPRESSION: No acute abnormality is seen. Electronically Signed: Brayan Ram, at 14:06 EDT , Service support ,
--- NOTE | 2019-05-22 12:45 | VDLE_ITS ---
Reason For Study: SWELLING Procedure LEFT Exam performed portable in ED. CFV is compressible, spontaneous, phasic, The study was technically limited. competent, and demonstrates normal A preliminary report was called and/or faxed augmentation. to ED. FV is compressible, spontaneous, phasic, competent and demonstrates normal augmentation. POP V is compressible, spontaneous, phasic, competent and demonstrates normal augmentation. T/P Trunk is compressible. PTV is compressible. LT PerV is compressible. GSV is not visualized due to vein ablation procedure. Technically limited study due to body habitus and edema. Partial visualization of distal FV by color doppler only. Partial visualization of proximal PTV/PeroV by color doppler only. Interpretation Summary Deep veins of the left lower extremity are patent and compressible segmentally. There is no evidence of left lower extremity deep vein thrombosis. Valvular competence appears intact within the proximal deep venous system on the left . The left femoral vein, posterior tibial vein, and peroneal vein were only partially visualized due to edema and the patient's body habitus. The left great saphenous vein was not visualized, as the patient has previously undergone a venous ablation procedure. Ordering Physician: Asia Vela Referring Physician: SHORTY MOYER Performed By: Abiola Escobar, VIANEY, RVT
--- NOTE | 2019-05-22 12:55 | ED.VIS.GEN ---
History of Present Illness Chief Complaint: Cellulitis Detail of Chief Complaint: Left leg redness, possible UTI, chest pain after fall Informant: Patient Onset: Days Narrative: Patient presents with 3 areas of concern. Her initial complaint is concern for cellulitis of her left lower extremity. She has chronic lymphedema and venous stasis. She states this morning the leg looked a little more red than normal and seem to be warmer. Those symptoms have now seem to resolve. She does not have pain in her leg. She called her PCP who wanted her to come in to be evaluated for cellulitis and possible DVT. Patient also mentions that she has had some burning with urination is concerned that she may have a UTI. She states she had a mechanical fall a week and a half ago and struck her anterior chest. She has had some chest wall pain since that time as well. Past Medical History - Allergies and Home Meds Allergies/Adverse Reactions: Allergies hydrochlorothiazide Allergy (Verified 05/22/19 12:24) Other metronidazole [From Flagyl] Allergy (Verified 05/22/19 12:24) Unknown dizziness triamterene Adverse Reaction (Verified 05/22/19 12:24) Other Primary Care Physician: Miguel Teresa MD [Primary Care Provider] - Prior records reviewed: Yes Past Medical History: - - Reviewed Surgical History: no surgical history Smoking Status: Never smoker - Family History Maternal Family History: Reports: No pertinent history Review of Systems General: Denies: Chills, Fever Eyes: Denies: Visual changes - bilaterally ENT: Denies: Bilateral ear pain Cardiovascular: Reports: Chest pain. Denies: Palpitations, Heart racing Respiratory: Denies: Dyspnea, Cough Gastrointestinal: Denies: Abdominal pain, Nausea, Vomiting, Diarrhea Genitourinary: Reports: Dysuria Musculoskeletal: Reports: Swelling Skin: Reports: Rash Neurological: Denies: Headache Hematologic: Denies: Easy bruising, Easy bleeding Allergy: Denies: Uticaria Physical Exam Vital Signs/Narrative: Vital Signs Temp Pulse Resp BP Pulse Ox 05/22/19 12:24 98.5 F 88 17 143/68 H 95 Inital Vital Signs reviewed: Yes General: Well nourished, Well developed Head: Normocephalic ENT: Moist mucous membranes Neck: Supple, Nontender Cardiovascular: Regular rate, Regular rhythm Respiratory: No distress, CTA bilaterally, Chest tenderness - Reproducible chest wall tenderness of the right anterior chest. Abdomen: Soft, Nontender Extremities: - - Chronic venous skin changes noted to the left lower extremity. Mild erythema. Area is not medically warm to touch. There are no open wounds. Neurological: Alert, Oriented x3 Psychological: Normal affect Diagnostic/Tx/Re-eval Impressions Chest X-Ray 05/22/19 12:44 IMPRESSION: No acute abnormality is seen. Electronically Signed: Brayan Ram, at 14:06 EDT , Service support , 05/22/19 12:44 Chest PA and Lateral [RAD] Stat Laboratory Results 05/22/19 13:02 Urine Color Yellow Urine Clarity Sl. Cloudy Urine pH 7.0 Ur Specific [place] 1.005 Urine Protein 15 H Urine Glucose (UA) Normal Urine Ketones Negative Urine Occult Blood 50 H Urine Nitrite Negative Urine Bilirubin Negative Urine Urobilinogen Normal Ur Leukocyte Esterase 500 H Urine RBC 0-5 SEEN Urine WBC >100 SEEN Ur Squamous Epith Cells 0 SEEN Urine Bacteria 4+ Urine Mucus 0 SEEN Venous ultrasound the left lower extremity reveals no DVT. - Medical Decision Making Test results discussed with the patient. She is given a dose of Macrobid and prescription will be sent to [facility]. Urine culture has been sent. Her leg at this time does not reveal evidence of acute cellulitis and she does not need antibiotics for this. ED Disposition - Plan for ED Patient: Disposition: Home or Assisted Living Diagnosis: UTI (urinary tract infection), Venous stasis Instructions: Bladder Infection, Female (Adult) Prescriptions: Nitrofurantoin Macrocrystals [Macrobid] 100 mg PO Q12 #14 cap Transmission Status: Pending to [facility] #30 Referrals: Miguel Teresa MD [Primary Care Provider] - 1 Week
[2019-05-22 13:05] LABS: Mucous, Urine 0 SEEN /hpf (<or=2+); Squamous Epithelial Cells - UA 0 SEEN /hpf (5-10)
[2019-05-22 13:08] LABS: Color, Urine Yellow (Yellow); Glucose, Dipstick Normal (Normal); Ketone-Dipstick Negative (Negative); Leukocyte Esterase-Dipstick 500 /ul (Negative); Nitrite-Dipstick Negative (Negative); Occult Blood-Urine 50 /ul (Negative); Protein-Dipstick 15 mg/dl (Negative); Specific Gravity, Urine 1.005 (1.002-1.030); Urine Bilirubin Dipstick Negative (Negative); Urine Clarity Sl. Cloudy (Clear); Urine Urobilinogen Normal (Normal)
[2019-05-22 13:23] LABS: Bacteria 4+ /hpf (None Seen); Red Blood Cells-Urine 0-5 SEEN /hpf (0-5); White Blood Cells >100 SEEN /hpf (0-5)
[2019-05-22] MEDS: Nitrofurantoin Macrocrystals 100 MG Capsule PO (14:23)
[2019-05-22 14:40] VITALS: RESP 18
== END 2019-05-22 14:40 | disposition home or self-care (01) ==
PROVIDERS: Emergency Provider Emergency Medicine; Family Provider Family Medicine; PCP Family Medicine
DX: N39.0 Urinary tract infection, site not specified (principal); I87.8 Other specified disorders of veins; Z88.1 Allergy status to other antibiotic agents; I89.0 Lymphedema, not elsewhere classified
CPT/HCPCS: 71046; 81001; 87086; 87088; 87186; 93971; 99283

== ENCOUNTER 2019-08-17 17:20 | Emergency (ER) | payer MEDICARE, MEDICAID, SELFPAY ==
[2019-08-17 17:20] VITALS: BP 145/85; PULSE 82; RESP 16; TEMP 36.8; O2SAT 96; BMI 40.0
--- NOTE | 2019-08-17 17:37 | CT_ITS ---
STUDY: CT BRAIN WITHOUT CONTRAST REASON FOR EXAM: Female, 69 years old. FELL OM ICE HITTING HEAD TODAY -- NO LOC RADIATION DOSAGE (If Supplied By Facility): CTDIvol = ( 44.99 ) mGy, DLP = ( 796.11 ) mGycm TECHNIQUE: Transaxial CT imaging of the brain was performed without administration of intravenous contrast material. Individualized dose optimization techniques were used for this CT. COMPARISON: No relevant priors. FINDINGS: Soft tissue swelling seen of the left scalp. Normal calvarium. Prominent area of encephalomalacia of the right frontal, insular and basal ganglia and temporal lobes from previous infarct. Normal size ventricles and extra-axial spaces for the patient''s age. Normal white matter tracts of the cerebral hemispheres. Normal basal ganglia and thalami. Normal brainstem. Normal cerebellum. There is no intracranial hemorrhage. There are no findings of an acute ischemic infarction. Normal visualized paranasal sinuses. CT/Brain/Head without Contrast IMPRESSION: No acute abnormality seen. Previous right MCA infarct with encephalomalacia. Electronically Signed: Colt Roa MD at 18:29 EST , Service support ,
--- NOTE | 2019-08-17 17:44 | ED.DCSUM_ITS ---
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 Patient states she was walking out of the m eeting into a parking lot. She states she stepped on an area which just looked wet, but it was icy. She fell backwards striking her head and right shoulder. She did not lose consciousness, but has had a persistent headache. She denies visual change. She denies any nausea vomiting. She is also had some pain in her right shoulder with motion. She is not on anticoagulants. Prior similar symptoms: No Recent Illness/Hospitalization: No Past Medical History - Allergies and Home Meds Allergies/Adverse Reactions: Allergies hydrochlorothiazide Allergy (Verified 08/17/19 17:24) Other metronidazole [From Flagyl] Allergy (Verified 08/17/19 17:24) Unknown dizziness triamterene Adverse Reaction (Verified 08/17/19 17:24) Other Primary Care Physician: Miguel Teresa MD [Primary Care Provider] - Prior records reviewed: Yes Past Medical History: - - Prior stroke with residual left-sided weakness Surgical History: noncontributory Smoking Status: Never smoker - Family History Maternal Family History: Reports: No pertinent history Review of Systems General: Denies: Chills, Fever, Sweats Eyes: Denies: Visual changes - bilaterally, Diplopia ENT: Denies: Rhinorrhea, Sore throat Cardiovascular: Denies: Chest pain, Palpitations Respiratory: Denies: Dyspnea, Cough, Dyspnea on exertion Gastrointestinal: Denies: Abdominal pain, Nausea, Vomiting, Diarrhea, Melena, Hematochezia Genitourinary: Denies: Dysuria, Hematuria, Frequency Musculoskeletal: Denies: Back pain, Extremity Pain Skin: Denies: Rash, Wounds Neurological: Denies: Headache, Weakness, Numbness Physical Exam Vital Signs/Narrative: Vital Signs Temp Pulse Resp BP Pulse Ox 08/17/19 17:20 98.2 F 82 16 145/85 H 96 Inital Vital Signs reviewed: Yes General: Well nourished, Well developed, No Acute Distress Head: Normocephalic, Atraumatic Eyes: Perrl, EOMI ENT: Moist mucous membranes, No rhinorrhea Neck: Supple, Nontender Cardiovascular: Regular rate, Regular rhythm, No murmurs Respiratory: No distress, CTA bilaterally, Chest nontender Abdomen: Soft, Nontender, Nondistended, Normal bowel sounds Back: Nontender, Normal Inspection Extremities: Nontender, No edema Skin: Normal color, No rash Neurological: Alert, Oriented x3, Cranial nerves II-XII grossly intact, Normal Strength, Normal Sensation Psychological: Normal affect, Normal Mood Diagnostic/Tx/Re-eval Clinical Impression(s) from Imaging Studies Brain CT 08/17/19 17:37 IMPRESSION: No acute abnormality seen. Previous right MCA infarct with encephalomalacia. Electronically Signed: Colt Roa MD at 18:29 EST , Service support , Shoulder X-Ray 08/17/19 17:55 IMPRESSION: No acute fracture or dislocation. Degenerative changes. Electronically Signed: Colt Roa MD at 18:17 EST , Service support , - Medical Decision Making Patient presents with a mechanical fall. She did strike her head. She had a normal neurologic exam. However, given history of stroke I did obtain a noncontrast head CT. This is unremarkable for acute intracranial process. X- rays of the shoulder were also negative. Patient was given oral analgesics with feeling improved. At this point, I do feel that she is safe for outpatient therapy. She was counseled on concerning symptoms and reasons to return. She will be discharged home. Impression 1. Closed head injury 2. Right shoulder contusion status post fall ED Disposition - Plan for ED Patient: Instructions: FALL, Mechanical, CONCUSSION, No Wake Up Referrals: Miguel Teresa MD [Primary Care Provider] -
--- NOTE | 2019-08-17 17:55 | RAD_ITS ---
STUDY: X-RAY - RIGHT SHOULDER REASON FOR EXAM: Female, 69 years old. SHOULDER PAIN AFTER FALL TECHNIQUE: 4 view(s) of the shoulder. COMPARISON: 11/25/2018. FINDINGS: There is cephalad migration of the humeral head consistent with rotator cuff pathology. There is degenerative arthrosis of the acromioclavicular joint without inferior osseous spur formation. There is a hook of the anterior acromion consistent with a Type III morphology. Normal humeral head and visualized proximal humerus. The soft tissue structures are unremarkable. Normal visualized pulmonary apex. RAD/Shoulder min 2 Views IMPRESSION: No acute fracture or dislocation. Degenerative changes. Electronically Signed: Colt Roa MD at 18:17 EST , Service support ,
[2019-08-17] MEDS: HYDROcodone Bitartrate/Apap 5/325 Tablet PO (18:36)
[2019-08-17 18:57] VITALS: PULSE 84; RESP 17; O2SAT 97
== END 2019-08-17 18:58 | disposition home or self-care (01) ==
PROVIDERS: Emergency Provider Emergency Medicine; PCP Family Medicine
DX: S09.90XA Unspecified injury of head, initial encounter (principal); S40.011A Contusion of right shoulder, initial encounter; W19.XXXA Unspecified fall, initial encounter; I69.354 Hemiplegia and hemiparesis following cerebral infarction affecting left non-dominant side; M19.011 Primary osteoarthritis, right shoulder; Z88.1 Allergy status to other antibiotic agents
CPT/HCPCS: 70450; 73030; 99283

== ENCOUNTER 2019-11-20 18:56 | Emergency (ER) | payer MEDICARE, SELFPAY ==
[2019-11-20 18:57] VITALS: BP 152/88; PULSE 86; RESP 16; TEMP 36; O2SAT 96
[2019-11-20 18:58] VITALS: BP 152/88; PULSE 97; RESP 16; TEMP 36; O2SAT 97; BMI 40.3
--- NOTE | 2019-11-20 19:33 | ED.DCSUM_ITS ---
History of Present Illness Chief Complaint: Cellulitis Informant: Patient Onset: Weeks Context: Gradual Onset Timing: Continuous Narrative: Patient is a 69-year-old female present with worsening cellulitis of her left lo wer extremity. Patient was evaluated urgent care on 11/12 for this. At that time she had a blister draining clear fluid and cellulitis. She was started on Keflex. Patient has almost completed the course of Keflex. The redness is worsening as well as pain and called her PCP office today. She could only be seen by tele-visit tomorrow so then she was instructed to go back to the urgent care. At the urgent care she was sent to the emergency room for concern of failed outpatient antibiotics. Patient denies any systemic symptoms such as fever or chills. She states she has increased pain of her leg that is worse with ambulation. Patient ambulates with a cane at baseline and independently while at home. She is not having significant worsening of her ambulation with this. She denies any falls. She does have continued drainage from the wound on her leg. No other complaints at this time. Past Medical History - Allergies and Home Meds Allergies/Adverse Reactions: Allergies hydrochlorothiazide Allergy (Verified 08/17/19 17:24) Other metronidazole [From Flagyl] Allergy (Verified 08/17/19 17:24) Unknown dizziness triamterene Adverse Reaction (Verified 08/17/19 17:24) Other Primary Care Physician: Miguel Teresa MD [Primary Care Provider] - Past Medical History: - - History of C. difficile, venous insufficiency, lymphedema, history of embolic stroke with left-sided weakness Surgical History: noncontributory Smoking Status: Never smoker - Family History Maternal Family History: Reports: No pertinent history Review of Systems General: Denies: Chills, Fever, Sweats Eyes: Denies: Visual changes - bilaterally, Diplopia ENT: Denies: Rhinorrhea, Sore throat Cardiovascular: Denies: Chest pain, Palpitations Respiratory: Denies: Dyspnea, Cough, Dyspnea on exertion Gastrointestinal: Denies: Abdominal pain, Nausea, Vomiting, Diarrhea, Melena, Hematochezia Genitourinary: Denies: Dysuria, Hematuria, Frequency Musculoskeletal: Reports: Swelling - Bilateral legs, left greater than right, Extremity Pain - Left lower leg. Denies: Back pain Skin: Reports: Wounds - Left lower leg. Denies: Rash Neurological: Reports: Weakness - Left upper extremity?chronic. Denies: Headache, Numbness Physical Exam Vital Signs/Narrative: Vital Signs Temp Pulse Resp BP Pulse Ox 11/20/19 18:58 96.8 F L 97 16 152/88 H 97 11/20/19 18:57 96.8 F L 86 16 152/88 H 96 Inital Vital Signs reviewed: Yes General: Well nourished, Well developed, Obese, No Acute Distress Head: Normocephalic, Atraumatic Eyes: Perrl, EOMI ENT: Moist mucous membranes, No rhinorrhea Neck: Supple, Nontender Cardiovascular: Regular rate, Regular rhythm, No murmurs Respiratory: No distress, CTA bilaterally, Chest nontender Abdomen: Soft, Nontender, Nondistended, Normal bowel sounds Back: Nontender, Normal Inspection Extremities: Tenderness, Edema - Bilateral, left greater than right, 2+ pitting. Negative for: Calf Tenderness Skin: - - Warmth and erythema of the left vega with a central 4 cm x 5 cm draining wound. The erythema covers approximately one third of the lower leg. No associated crepitus. Neurological: Alert, Oriented x3, Cranial nerves II-XII grossly intact, Normal Strength, Normal Sensation Psychological: Normal affect, Normal Mood Diagnostic/Tx/Re-eval Laboratory Data 11/20/19 11/20/19 11/20/19 20:20 20:20 20:20 WBC 7.1 RBC 4.55 Hgb 13.3 Hct 42.6 MCV 93.6 MCH 29.2 MCHC 31.2 L RDW Std Deviation 44.3 H RDW Coeff of Adriana 12.9 Plt Count 262 MPV 10.1 Immature Gran % (Auto) 0.300 Neut % (Auto) 51.3 Lymph % (Auto) 35.8 Davis % (Auto) 8.7 Eos % (Auto) 3.5 Baso % (Auto) 0.4 Absolute Neuts (auto) 3.7 Absolute Lymphs (auto) 2.55 Nucleated RBC % 0 PT 12.3 INR 1.0 Sodium 142 Potassium 3.4 L Chloride 105 Carbon Dioxide 33.0 H Anion Gap 4 L BUN 13 Creatinine 0.64 Estim Creat Clear Calc 37.06 Est GFR (MDRD) Af Amer 118 Est GFR (MDRD) Non-Af 97 BUN/Creatinine Ratio 20.3 H Glucose 90 Lactic Acid Calcium 9.5 11/20/19 20:20 WBC RBC Hgb Hct MCV MCH MCHC RDW Std Deviation RDW Coeff of Adriana Plt Count MPV Immature Gran % (Auto) Neut % (Auto) Lymph % (Auto) Davis % (Auto) Eos % (Auto) Baso % (Auto) Absolute Neuts (auto) Absolute Lymphs (auto) Nucleated RBC % PT INR Sodium Potassium Chloride Carbon Dioxide Anion Gap BUN Creatinine Estim Creat Clear Calc Est GFR (MDRD) Af Amer Est GFR (MDRD) Non-Af BUN/Creatinine Ratio Glucose Lactic Acid 0.8 Calcium - Medical Decision Making Patient is evaluated for continued redness, warmth and swelling of her left lower extremity. She appears nontoxic in no acute distress. Her vital signs are significant only for very mild hypertension. She is afebrile. She does not have any systemic symptoms and is well-appearing. Patient has almost completed a week of Keflex but feels that she is not getting better/slightly worse. She does have a open draining wound that appears to have granulomatous tissue on top of it as well as yellow/white discharge. No signs of an abscess. She does not have a leukocytosis or lactic acidosis. Blood cultures are drawn and pending. Discussed with her PCP who will arrange for wound care follow-up. Given her l argely negative work-up he is comfortable broadening her antibiotic coverage for MRSA and outpatient follow-up. Patient is given a dose of Keflex and Bactrim in the emergency room. She is not switched to clindamycin because she does have a history of C. difficile. Patient is counseled on signs and symptoms requiring return to the emergency room. Patient verbalizes agreement and understand this plan. Patient discharged home in stable and improved condition. ED Disposition - Plan for ED Patient: Disposition: Home or Assisted Living Diagnosis: Lower extremity cellulitis Instructions: ED Cellulitis Prescriptions: Smz/Tmp Ds [Bactrim Ds] 1 tab PO BID #14 tab Transmission Status: Sent to [facility] #30 Cephalexin [Keflex] 500 mg PO Q6 #28 cap Transmission Status: Sent to [facility] #30 Referrals: Miguel Teresa MD [Primary Care Provider] - Additional Instructions: Please call your primary DrLorena on Saturday to arrange follow up with the wound center. Return if further worsening, especially after 48 hours.
[2019-11-20 20:42] LABS: Absolute Lymphocyte Count 2.55 X10^3/uL (0.83-4.51); Absolute Neutrophil Count 3.7 X10^3/uL (2.0-7.7); Basophil# 0.03 X10^3/uL; Basophil% 0.4 % (0-1); Eosinophil# 0.25 X10^3/uL; Eosinophils% 3.5 % (0-5); Hematocrit 42.6 % (37-47); Hemoglobin 13.3 g/dL (12.0-15.0); Lymphocyte # 2.55 X10^3/ul (4.0); Lymphocyte % 35.8 % (19-41); Mean Corp Hgb Conc 31.2 g/dL (32-36); Mean Corpuscular Hgb 29.2 pg (27.0-32.0); Mean Corpuscular Volume 93.6 fL (81-99); Mean Platelet Vol. 10.1 fl (6.2-12.0); Monocyte# 0.62 X10^3/uL; Monocyte% 8.7 % (0-10); NRBC Flagged by Analyzer 0 % (0-5); Neutrophil # 3.65 X10^3/uL (2.7-7.7); Neutrophil % 51.3 % (47-70); Platelet Count 262 K/mm3 (150-450); RBC Distribution Width CV 12.9 % (11.6-14.6); RBC Distribution Width SD 44.3 fl (35.1-43.9); Red Blood Count 4.55 M/mm3 (4.2-5.4); White Blood Count 7.1 K/mm3 (4.4-11.0)
[2019-11-20 20:48] LABS: Prothrombin Time (Protime)PT. 12.3 SECONDS (11.7-14.9)
[2019-11-20] MEDS: Acetaminophen 500 MG Tablet 1000 MG PO (20:58)
[2019-11-20 21:00] LABS: Anion Gap 4 (5-15); BUN 13 mg/dL (7-18); BUN/Creat Ratio 20.3 RATIO (10-20); Calcium,Total 9.5 mg/dL (8.5-10.1); Chloride 105 mmol/L (98-107); Creatinine, Serum 0.64 mg/dL (0.55-1.02); EST Glomerular Filtration Rate 97 mL/min (>60); Est Glom Filt Rate - Afr Amer 118 mL/min (>60); Estimated Creatinine Clearance 37.06 ml/min; Glucose 90 mg/dL (74-106); Potassium 3.4 mmol/L (3.5-5.1); Sodium Level 142 mmol/L (136-145)
[2019-11-20 21:05] LABS: Lactic Acid 0.8 mmol/L (0.4-1.9)
[2019-11-20 21:45] VITALS: BP 121/53; PULSE 89; RESP 16; O2SAT 96
[2019-11-20] MEDS: Cephalexin 250 MG Capsule 500 MG PO (21:54)
[2019-11-20] MEDS: Smz/Tmp Ds Tablet 1 TABLET PO (21:55)
== END 2019-11-20 22:15 | disposition home or self-care (01) ==
PROVIDERS: Emergency Provider Emergency Medicine; PCP Family Medicine
DX: L03.116 Cellulitis of left lower limb (principal); Z88.1 Allergy status to other antibiotic agents; E66.9 Obesity, unspecified; I69.354 Hemiplegia and hemiparesis following cerebral infarction affecting left non-dominant side; M79.606 Pain in leg, unspecified
CPT/HCPCS: 80048; 83605; 85025; 85610; 87040; 99284; A4216

== ENCOUNTER 2019-12-17 11:00 | Outpatient (RCR) | payer MEDICARE, MEDICAID, SELFPAY ==
[2019-11-26 09:26] VITALS: BP 113/72; PULSE 91; RESP 18; TEMP 36.5; BMI 39.0
--- NOTE | 2019-11-26 11:02 | PCM.WC.HP ---
(1) Ulcer of left lower extremity with fat layer exposed Status: Acute Current Visit: Yes Code(s): L97.922 - Non-pressure chronic ulcer of unspecified part of left lower leg with fat layer exposed (2) History of stroke Status: Chronic Current Visit: Yes Code(s): Z86.73 - Personal history of transient ischemic attack (TIA), and cerebral infarction without residual deficits (3) Venous insufficiency Status: Chronic Current Visit: Yes Code(s): I87.2 - Venous insufficiency (chronic) (peripheral) History of Present Illness Date of Service: 11/26/19 Chief Complaint: Nonhealing left leg ulcer. History of Wound: Ms Frederick is a 69 with past medical history as documented above who presents to the wound center due to nonhealing left leg ulcer. Initially noted about 3 weeks ago. Started out as a blister which subsequently became ulcerated. She was treated by her primary care physician, urgent care and inpatient at the hospital. She has had about 2 weeks of antibiotics so far. Right now denies chills or fever. Chronic history of venous insufficiency status post vein ablation on the left. Past Medical History Past Medical History: Chronic Problems Foot drop, left (Chronic) Edema leg (Chronic) Venous insufficiency (Chronic) History of stroke (Chronic) Surgical History: noncontributory Allergies/Adverse Reactions: Allergies hydrochlorothiazide Allergy (Verified 08/17/19 17:24) Other metronidazole [From Flagyl] Allergy (Verified 08/17/19 17:24) Unknown dizziness triamterene Adverse Reaction (Verified 08/17/19 17:24) Other Home Medications: Ambulatory Orders Medication Instructions Recorded Atorvastatin Calcium [Lipitor] 10 mg PO QHS 04/09/15 Diltiazem HCl [Diltiazem 24Hr ER] 300 mg PO DAILY 04/09/15 Gabapentin [Neurontin] 300 mg PO BID 04/09/15 Docusate Sodium [Colace] 100 mg PO BID 02/09/17 Famotidine [Pepcid] 40 mg PO DAILY 02/09/17 Furosemide [Lasix] 40 mg PO DAILY 02/09/17 Multivitamin [Daily Multiple 1 each PO DAILY 02/09/17 Vitamin] Cholecalciferol (Vitamin D3) 2,000 unit PO DAILY 03/19/18 [Vitamin D3] Potassium Chloride [K-Dur] 10 meq PO DAILY 03/19/18 Oxybutynin [Ditropan] 2.5 mg PO BID 11/25/18 Hydrocodone Bitart/Apap 5-325 1 tab PO Q6H PRN 08/17/19 [[place] 5/325] Cephalexin [Keflex] 500 mg PO Q6 #28 cap 11/20/19 Smz/Tmp Ds [Bactrim Ds] 1 tab PO BID #14 tab 11/20/19 - Family History Maternal No pertinent history Smoking Status: Never smoker Review of Systems Constitutional: Denies: Anorexia, Chills, Fever, Malaise Eyes: Denies: Blurred vision, Pain, Redness HEENT: Denies: Difficulty Hearing, Difficulty Swallowing Cardiovascular: Denies: Chest Pain, Claudication, Chest Pressure Respiratory: Denies: Hemoptysis, Wheezing Gastrointestinal: Denies: Abdominal Pain, Hematemesis, Vomiting Genitourinary: Denies: Hematuria Skin: Denies: Jaundice - Physical Exam Vital Signs Temp Pulse Resp BP 97.7 F L 91 18 113/72 11/26/19 09:26 11/26/19 09:26 11/26/19 09:26 11/26/19 09:26 General: Alert, Oriented x3, Cooperative, No apparent distress HEENT: Atraumatic, Normocephalic Oral: Moist Mucosa Neck: Supple Lungs: Normal air movement Cardiovascular: Regular rate, Regular Rhythm, Normal S1, Normal S2 Abdomen: Soft, Non Tender Extremities: No cyanosis, Edema Skin: Ulcer/ Wound Wound Measurements and Assessment WC - Nurse 1 - General Ulcer Measurement Start: 11/26/19 09:26 Freq: Status: Active Protocol: Activity Type Activity Date Activity User E-Sign Co-Sign Detail Recorded Client Recorded Date Recorded By Document 11/26/19 09:26 DV [id number] 11/26/19 10:06 DV 11/26/19 09:26 Wound Center Nurse 1 [Ulcer Assessment] #1 LLE--Cellulitis -Combined with other wound No -Current Size (cm) - Length 5.0 -Current Size (cm) - Width 5.5 -Current Size (cm) - Depth 0.1 -Total Square Cm 27.50 -Date of Last Picture (Recall this 11/26/19 field) -Photo Taken Yes -Epithelialization None Present -Tunneling No -Undermining/Tunneling No -Circular Undermining No -Classification - Thickness Full Thickness without Exposed Support Structure -Exudate Amt Large -Exudate Type Serosanguineous -Wound Margin Indistinct, Non -Visible -Granulation Amt None Present (0 %) -Granulation Quality N/A -Slough/Fibrin Yes -Necrosis Amt Large (67-100%) -Necrotic Tissue Type Adherent Slough -Structure Exposed None/Limited to Skin Breakdown -Texture ([place]-wound Skin Appearance) Assessed, Excoriation, Localized Edema -Moisture ([place]-wound Skin Appearance Assessed, ) Maceration, Weeping -Color ([place]-wound Skin Appearance) Assessed, Erythema -Temperature ([place]-wound Skin No Abnormality Appearance) (Pt Warm) -Tenderness on Palpation ([place]-wound No Skin Appearance) -Ulcer Cleansing Rinsed/ Irrigated with Saline -Foul Odor after Cleansing No -Anesthetic Used 4% Lidocaine Solution [Edema Assessment] -Lower Limb Edema Present Yes -Right Calf (cm) 43.0 -Right Ankle (cm) 24.5 -Left Calf (cm) 45.1 -Left Ankle (cm) 29.0 WC - Nurse 2 - General Ulcer CM Notes Start: 11/26/19 09:26 Freq: Status: Active Protocol: Activity Type Activity Date Activity User E-Sign Co-Sign Detail Recorded Client Recorded Date Recorded By Document 11/26/19 10:26 MW [id number] 11/26/19 10:33 MW 11/26/19 10:26 Wound Center Nurse 2 [Procedure/Treatment] #1 LLE--Cellulitis -Time 10:27 -Correct Patient Yes -Correct Side, Site, Position Yes -Correct Procedure Yes -Procedure Performed Yes -Type of Procedure Debridement -Clinical Debridement Subcutaneous -Post Debridement Size (cm) - Length 5.3 -Post Debridement Size (cm) - Width 5.0 -Post Debridement Size (cm) - Depth 0.1 -Total Square Cm 26.50 -Wound/Ulcer Outcome Not Healed -Ulcer Cleansing Rinsed/ Irrigated with Saline -Foul Odor after Cleansing No -Bioengineered Tissue No -Bleeding Controlled with Pressure -Offloading No -Treatment Response Procedure Tolerated Well [See Physician Procedure note for Specifics] Pain Scale: 0-10 Numeric [Pain] -Is Patient Pain Free? Yes Neurological: Cranial nerves II-XII grossly intact Debridement Note Post-Debridement Measurements/Treatment WC - Nurse 2 - General Ulcer CM Notes Start: 11/26/19 09:26 Freq: Status: Active Protocol: Activity Type Activity Date Activity User E-Sign Co-Sign Detail Recorded Client Recorded Date Recorded By Document 11/26/19 10:26 MW [id number] 11/26/19 10:33 MW 11/26/19 10:26 Wound Center Nurse 2 #1 LLE--Cellulitis -Time 10:27 -Correct Patient Yes -Correct Side, Site, Position Yes -Correct Procedure Yes -Procedure Performed Yes -Type of Procedure Debridement -Clinical Debridement Subcutaneous -Post Debridement Size (cm) - Length 5.3 -Post Debridement Size (cm) - Width 5.0 -Post Debridement Size (cm) - Depth 0.1 -Total Square Cm 26.50 -Wound/Ulcer Outcome Not Healed -Ulcer Cleansing Rinsed/ Irrigated with Saline -Foul Odor after Cleansing No -Bioengineered Tissue No -Bleeding Controlled with Pressure -Offloading No -Treatment Response Procedure Tolerated Well Pain Scale: 0-10 Numeric Is Patient Pain Free? Yes Wound debrided: Left lower extremity Type of Debridement: Excisional debridement Anesthesia Used: 4% Lidocaine Solution Depth: Down to and including healthy tissue, in the subcutaneous layer Percentage of wound debrided: 100 Instrument Used: 5mm curette Tissue Removed: Slough and devitalized tissue Severity: Fat Layer Exposed Amount of bleeding with debridement: Mild Bleeding Controlled with: Pressure Patient tolerated procedure well Assessment/Plan Active Problems Venous insufficiency (Chronic) Ulcer of left lower extremity with fat layer exposed (Acute) History of stroke (Chronic) Assessment: Same as above Plan: Debridement done as documented above. Procedure was well-tolerated. Aquacel extra daily with ABD over top to help with drainage. Lengthy discussion had with patient on need for compression. Prescription for CircAid sent. For now, double layer Tubigrip's. She is status post CVA with hemiparesis. She will have difficulty with wound care. Home health ordered. Increase protein intake, leg elevation and exercise as tolerated. Her questions were answered and she was advised to call with any further questions or concerns. Follow-up in a week. This note was generated with [employer] dictation software. It may contain incorrect words, spelling, and punctuation that were not noted in checking the note before signing. Multi Select Codes - Visit Charges Office Visit/Consults: 09412 OV L3 Est - Integumentary Integumentary CPT Codes: 18245 Astrid subq tissue 20 sq cm/< - Additional square centimeter debrided. Please refer to clinical note.
[2019-12-03 10:48] VITALS: BP 134/80; PULSE 86; RESP 24; TEMP 35.5; BMI 39.0
--- NOTE | 2019-12-03 12:37 | PN.PCM_ITS ---
(1) Ulcer of left lower extremity with fat layer exposed Status: Acute Current Visit: Yes Code(s): L97.922 - Non-pressure chronic ulcer of unspecified part of left lower leg with fat layer exposed (2) History of stroke Status: Chronic Current Visit: Yes Code(s): Z86.73 - Personal history of transient ischemic attack (TIA), and cerebral infarction without residual deficits (3) Venous insufficiency Status: Chronic Current Visit: Yes Code(s): I87.2 - Venous insufficiency (chronic) (peripheral) Type of Wound Date of Service: 12/03/19 Chief Complaint: Nonhealing left leg ulcer. History of Wound: Ms Frederick is a 69 with past medical history as documented above who presents to the wound center due to nonhealing left leg ulcer. Initially noted about 3 weeks ago. Started out as a blister which subsequently became ulcerated. She was treated by her primary care physician, urgent care and inpatient at the hospital. She has had about 2 weeks of antibiotics so far. Right now denies chills or fever. Chronic history of venous insufficiency status post vein ablation on the left. Progress of Wound: Improving. No new concerns at this time. - Physical Exam Vital Signs Temp Pulse Resp BP 96 F L 86 24 H 134/80 H 12/03/19 10:48 12/03/19 10:48 12/03/19 10:48 12/03/19 10:48 General: Alert, Oriented x3, Cooperative, No apparent distress HEENT: Atraumatic, Normocephalic Oral: Moist Mucosa Neck: Supple Lungs: Normal air movement Abdomen: Non Tender Extremities: No cyanosis, Edema Skin: Ulcer/ Wound Wound Measurements and Assessment WC - Nurse 1 - General Ulcer Measurement Start: 11/26/19 09:26 Freq: Status: Active Protocol: Activity Type Activity Date Activity User E-Sign Co-Sign Detail Recorded Client Recorded Date Recorded By Document 12/03/19 10:48 DL [id number] 12/03/19 10:59 DL 12/03/19 10:48 Wound Center Nurse 1 [Ulcer Assessment] #1 LLE -Current Size (cm) - Length 0.8 -Current Size (cm) - Width 1.1 -Current Size (cm) - Depth 0.1 -Total Square Cm 0.88 -Photo Taken No -Exudate Amt Small -Exudate Type Serosanguineous -Wound Margin Distinct, Outline Attached -Granulation Amt Large (67-100%) -Granulation Quality [place] -Necrosis Amt Small (1-33%) -Necrotic Tissue Type Adherent Slough -Structure Exposed N/A -Texture ([place]-wound Skin Appearance) Localized Edema ,Scarring -Moisture ([place]-wound Skin Appearance Weeping ) -Color ([place]-wound Skin Appearance) Erythema, Hemosiderin Staining -Temperature ([place]-wound Skin No Abnormality Appearance) (Pt Warm) -Tenderness on Palpation ([place]-wound No Skin Appearance) -Ulcer Cleansing Wound Cleanser -Foul Odor after Cleansing No -Anesthetic Used 4% Lidocaine Solution [Edema Assessment] -Left Ankle (cm) 43.8 -Left Foot (cm) 27 WC - Nurse 2 - General Ulcer CM Notes Start: 11/26/19 09:26 Freq: Status: Active Protocol: Activity Type Activity Date Activity User E-Sign Co-Sign Detail Recorded Client Recorded Date Recorded By Document 12/03/19 11:17 MW [id number] 12/03/19 11:19 MW 12/03/19 11:17 Wound Center Nurse 2 [Procedure/Treatment] #1 LLE -Time 11:17 -Correct Patient Yes -Correct Side, Site, Position Yes -Correct Procedure Yes -Procedure Performed Yes -Type of Procedure Debridement -Clinical Debridement Subcutaneous -Post Debridement Size (cm) - Length 0.5 -Post Debridement Size (cm) - Width 1.5 -Post Debridement Size (cm) - Depth 0.1 -Total Square Cm 0.75 -Wound/Ulcer Outcome Not Healed -Ulcer Cleansing Rinsed/ Irrigated with Saline -Foul Odor after Cleansing No -Bioengineered Tissue No -Bleeding Controlled with Pressure -Offloading No -Treatment Response Procedure Tolerated Well [See Physician Procedure note for Specifics] Pain Scale: 0-10 Numeric [Pain] -Is Patient Pain Free? Yes Musculoskeletal: No Muscle Wasting Neurological: Cranial nerves II-XII grossly intact Psych/Mental Status: Normal Affect Debridement Note Post-Debridement Measurements/Treatment - Nurse 2 - General Ulcer CM Notes Start: 11/26/19 09:26 Freq: Status: Active Protocol: Activity Type Activity Date Activity User E-Sign Co-Sign Detail Recorded Client Recorded Date Recorded By Document 11/26/19 10:26 MW [id number] 11/26/19 10:33 MW Document 12/03/19 11:17 MW [id number] 12/03/19 11:19 MW 11/26/19 12/03/19 10:26 11:17 Wound Center Nurse 2 #1 LLE -Time 10:27 11:17 -Correct Patient Yes Yes -Correct Side, Site, Position Yes Yes -Correct Procedure Yes Yes -Procedure Performed Yes Yes -Type of Procedure Debridement Debridement -Clinical Debridement Subcutaneous Subcutaneous -Post Debridement Size (cm) - Length 5.3 0.5 -Post Debridement Size (cm) - Width 5.0 1.5 -Post Debridement Size (cm) - Depth 0.1 0.1 -Total Square Cm 26.50 0.75 -Wound/Ulcer Outcome Not Healed Not Healed -Ulcer Cleansing Rinsed/ Rinsed/ Irrigated with Irrigated with Saline Saline -Foul Odor after Cleansing No No -Bioengineered Tissue No No -Bleeding Controlled with Pressure Pressure -Offloading No No -Treatment Response Procedure Procedure Tolerated Well Tolerated Well Pain Scale: 0-10 Numeric Is Patient Pain Free? Yes Yes Wound debrided: Left lower extremity Type of Debridement: Excisional debridement Anesthesia Used: 4% Lidocaine Solution Depth: Down to and including healthy tissue, in the subcutaneous layer Percentage of wound debrided: 100 Instrument Used: 5mm curette Tissue Removed: Slough and devitalized tissue Severity: Fat Layer Exposed Amount of bleeding with debridement: Mild Bleeding Controlled with: Pressure Patient tolerated procedure well Assessment/Plan Active Problems Venous insufficiency (Chronic) Ulcer of left lower extremity with fat layer exposed (Acute) History of stroke (Chronic) Assessment: Same as above Plan: Improving. Debridement done as documented above. Procedure was well- tolerated. Continue Aquacel extra daily with Adaptic over top. Patient not able to afford CircAid and not covered by her insurance. Advised to get OTC compression stockings. Compliance with compression very strongly recommended. Continue for now, double layer Tubigrip's. Increase protein intake, leg elevation and exercise as tolerated. Her questions were answered and she was advised to call with any further questions or concerns. Follow-up in 2 weeks. This note was generated with [employer] software. It may contain incorrect words, spelling, and punctuation that were not noted in checking the note before signing. [id number]: [id number] Astrid subq tissue 20 sq cm/<
[2019-12-17 11:07] VITALS: BP 142/67; PULSE 99; RESP 22; TEMP 37.5; BMI 39.0
--- NOTE | 2019-12-17 12:07 | PCM.WC.PN ---
(1) Ulcer of left lower extremity with fat layer exposed Status: Acute Current Visit: Yes Code(s): L97.922 - Non-pressure chronic ulcer of unspecified part of left lower leg with fat layer exposed (2) History of stroke Status: Chronic Current Visit: Yes Code(s): Z86.73 - Personal history of transient ischemic attack (TIA), and cerebral infarction without residual deficits (3) Venous insufficiency Status: Chronic Current Visit: Yes Code(s): I87.2 - Venous insufficiency (chronic) (peripheral) Type of Wound Date of Service: 12/17/19 Chief Complaint: Nonhealing left leg ulcer. History of Wound: Ms Frederick is a 69 with past medical history as documented above who presents to the wound center due to nonhealing left leg ulcer. Initially noted about 3 weeks ago. Started out as a blister which subsequently became ulcerated. She was treated by her primary care physician, urgent care and inpatient at the hospital. She has had about 2 weeks of antibiotics so far. Right now denies chills or fever. Chronic history of venous insufficiency status post vein ablation on the left. Progress of Wound: Healed. - Physical Exam Vital Signs Temp Pulse Resp BP 99.5 F H 99 22 H 142/67 H 12/17/19 11:07 12/17/19 11:07 12/17/19 11:07 12/17/19 11:07 General: Alert, Oriented x3, Cooperative, No apparent distress HEENT: Atraumatic, Normocephalic Oral: Moist Mucosa Neck: Supple Lungs: Normal air movement Abdomen: Non Tender, Obese Extremities: No cyanosis, Edema Wound Measurements and Assessment WC - Nurse 1 - General Ulcer Measurement Start: 11/26/19 09:26 Freq: Status: Active Protocol: Activity Type Activity Date Activity User E-Sign Co-Sign Detail Recorded Client Recorded Date Recorded By Document 12/17/19 11:07 DL [id number] 12/17/19 11:16 DL 12/17/19 11:07 Wound Center Nurse 1 [Ulcer Assessment] #1 LLE -Current Size (cm) - Length 0 -Current Size (cm) - Width 0 -Current Size (cm) - Depth 0 -Total Square Cm 0 -Photo Taken Yes -Exudate Amt None Present -Wound Margin Flat & Intact -Granulation Amt Large (67-100%) -Granulation Quality [place] -Necrosis Amt None Present (0 %) -Structure Exposed N/A -Texture ([place]-wound Skin Appearance) Scarring -Moisture ([place]-wound Skin Appearance Dry/Scaly ) -Color ([place]-wound Skin Appearance) Hemosiderin Staining -Temperature ([place]-wound Skin No Abnormality Appearance) (Pt Warm) -Tenderness on Palpation ([place]-wound No Skin Appearance) -Ulcer Cleansing Wound Cleanser -Foul Odor after Cleansing No [Edema Assessment] -Left Calf (cm) 42 -Left Ankle (cm) 25.5 WC - Nurse 2 - General Ulcer CM Notes Start: 11/26/19 09:26 Freq: Status: Active Protocol: Activity Type Activity Date Activity User E-Sign Co-Sign Detail Recorded Client Recorded Date Recorded By Document 12/17/19 11:53 PL [id number] 12/17/19 11:54 PL 12/17/19 11:53 Wound Center Nurse 2 [Procedure/Treatment] #1 LLE -Procedure Performed No -Post Debridement Size (cm) - Length 0 -Post Debridement Size (cm) - Width 0 -Post Debridement Size (cm) - Depth 0 -Total Square Cm 0 -Wound/Ulcer Outcome Healed- Epithelialized [See Physician Procedure note for Specifics] Pain Scale: 0-10 Numeric [Pain] -Is Patient Pain Free? Yes Musculoskeletal: No Muscle Wasting Neurological: Cranial nerves II-XII grossly intact Psych/Mental Status: Normal Affect Debridement Note Post-Debridement Measurements/Treatment - Nurse 2 - General Ulcer CM Notes Start: 11/26/19 09:26 Freq: Status: Active Protocol: Activity Type Activity Date Activity User E-Sign Co-Sign Detail Recorded Client Recorded Date Recorded By Document 11/26/19 10:26 MW [id number] 11/26/19 10:33 MW Document 12/03/19 11:17 MW [id number] 12/03/19 11:19 MW Document 12/17/19 11:53 PL [id number] 12/17/19 11:54 PL 11/26/19 12/03/19 12/17/19 10:26 11:17 11:53 Wound Center Nurse 2 #1 LLE -Time 10:27 11:17 -Correct Patient Yes Yes -Correct Side, Site, Position Yes Yes -Correct Procedure Yes Yes -Procedure Performed Yes Yes No -Type of Procedure Debridement Debridement -Clinical Debridement Subcutaneous Subcutaneous -Post Debridement Size (cm) - Length 5.3 0.5 0 -Post Debridement Size (cm) - Width 5.0 1.5 0 -Post Debridement Size (cm) - Depth 0.1 0.1 0 -Total Square Cm 26.50 0.75 0 -Wound/Ulcer Outcome Not Healed Not Healed Healed- Epithelialized -Ulcer Cleansing Rinsed/ Rinsed/ Irrigated with Irrigated with Saline Saline -Foul Odor after Cleansing No No -Bioengineered Tissue No No -Bleeding Controlled with Pressure Pressure -Offloading No No -Treatment Response Procedure Procedure Tolerated Well Tolerated Well Pain Scale: 0-10 Numeric Is Patient Pain Free? Yes Yes Yes No debridement was completed today Assessment/Plan Active Problems Venous insufficiency (Chronic) Ulcer of left lower extremity with fat layer exposed (Acute) History of stroke (Chronic) Assessment: Same as above Plan: Healed. No new concerns. Vaseline or Aquaphor daily with gauze over top. Very lengthy discussion had with patient on compliance with compression, leg elevation and exercise. She voiced understanding. Her questions were answered and she was advised to call with any further questions or concerns. Discharge from the wound clinic. This note was generated with [employer] dictation software. It may contain incorrect words, spelling, and punctuation that were not noted in checking the note before signing. Office Visits / Consults: 15474 OV L3 Est
== END 2019-12-20 23:59 ==
LOC: WC 11:00
PROVIDERS: PCP Family Medicine; Visit Provider Internal Medicine
DX: L97.922 Non-pressure chronic ulcer of unspecified part of left lower leg with fat layer exposed (principal); L03.116 Cellulitis of left lower limb; I87.2 Venous insufficiency (chronic) (peripheral); M21.372 Foot drop, left foot; R60.0 Localized edema; I69.359 Hemiplegia and hemiparesis following cerebral infarction affecting unspecified side; Z79.899 Other long term (current) drug therapy; Z88.1 Allergy status to other antibiotic agents
CPT/HCPCS: 11042; 11045; 99212; 99213; G0463

== ENCOUNTER → 2019-12-29 16:47 | Outpatient (CLI) | payer MEDICARE, MEDICAID, SELFPAY ==
[2019-12-17 11:07] VITALS: BMI 39.0
--- NOTE | 2019-12-29 17:10 | RAD_ITS ---
HISTORY: neck pain and headaches since fall in July 2019 ADDITIONAL HISTORY: None provided. TECHNIQUE: Cervical spine 2 views Number of images including paperwork: 2 COMPARISON: 04/08/2017 FINDINGS: VERTEBRAE: No acute fracture. VERTEBRAL ALIGNMENT: No traumatic subluxation. DISKS AND JOINTS: Mild multilevel discogenic degenerative changes, facet arthropathy and uncovertebral degenerative changes, grossly similar to previous. SOFT TISSUES: Unremarkable paraspinous soft tissues. RAD/Cerv Spine 2 or 3 Views IMPRESSION: 1. No acute osseous abnormality. 2. Cervical spondylosis, grossly similar to previous. at 2340 Reported and signed by: Tarsha Cohen MD Electronically Signed: Tarsha Cohen MD at 23:40 EDT Tel , Service support ,
== END ==
PROVIDERS: PCP Family Medicine; Visit Provider Anesthesiology Pain Medicine
DX: R51 Headache (principal); M54.2 Cervicalgia
CPT/HCPCS: 72040

== ENCOUNTER → 2020-02-23 13:21 | Outpatient (CLI) | payer MEDICARE, MEDICAID, SELFPAY ==
[2020-02-23 14:03] LABS: Amphetamine Urine VISTA NEGATIVE (<1000 ng/mL); Barbiturate Urine VISTA NEGATIVE (< 200 ng/mL); Benzodiazepine Urine VISTA NEGATIVE (< 200 ng/mL); Cocaine Urine VISTA NEGATIVE (< 300 ng/mL); Ecstacy Urine VISTA NEGATIVE (< 500 ng/mL); Methadone Urine VISTA NEGATIVE (< 300 ng/mL); PCP Urine VISTA NEGATIVE (< 25 ng/mL); THC Urine VISTA NEGATIVE (< 50 ng/mL); Vista UDS pH Range 7
== END ==
PROVIDERS: PCP Family Medicine; Referring Provider Anesthesiology Pain Medicine; Visit Provider Anesthesiology Pain Medicine
DX: F11.20 Opioid dependence, uncomplicated (principal)
CPT/HCPCS: 80307

== ENCOUNTER 2020-05-02 19:21 | Emergency (ER) | payer MEDICARE, MEDICAID, OTHER, SELFPAY ==
[2020-05-02 19:22] VITALS: BP 133/67; PULSE 81; RESP 16; TEMP 36.7; O2SAT 94; BMI 42.2
--- NOTE | 2020-05-02 19:34 | CT_ITS ---
STUDY: CT BRAIN WITHOUT CONTRAST REASON FOR EXAM: Female, 70 years old. FALL/LAC TO FOREHEAD HX CVA 38YR AGO AFFECTING LT SIDE RADIATION DOSAGE (If Supplied By Facility): CTDIvol = ( 44.99 ) mGy, DLP = ( 779.24 ) mGycm TECHNIQUE: Transaxial CT imaging of the brain was performed without administration of intravenous contrast material. Individualized dose optimization techniques were used for this CT. COMPARISON: 08/17/2019 FINDINGS: There is a subcutaneous hematoma overlying the left frontal calvarium. Normal calvarium. There is stable encephalomalacia within the right frontal and temporal lobes. There is mild cerebral atrophy with widening of the extra-axial spaces and ventricular dilatation. Normal white matter tracts of the cerebral hemispheres. Normal basal ganglia and thalami. Normal brainstem. There is mild cerebellar atrophy. There is no intracranial hemorrhage. There are no findings of an acute ischemic infarction. There are rounded opacities within the sphenoid and partially visualized right maxillary sinus sinuses that likely reflect mucous retention cysts or polyps. CT/Brain/Head without Contrast IMPRESSION: Chronic involutional changes of the brain. Stable encephalomalacia within the right middle cerebral artery territory consistent with an old infarct. Electronically Signed: Damari Crowley MD at 20:05 EDT Tel , Service support ,
--- NOTE | 2020-05-02 19:36 | ED.DCSUM_ITS ---
History of Present Illness Chief Complaint: Fall Informant: Patient Onset: Today Current Severity: Mild Maximum Severity: Mild Narrative: Patient has chronic history of left-sided weakness from prior stroke. She was at [facility] and lost her balance while reaching for an item. She fell and hit a wooden pallet. She has a laceration to the left forehead with abrasions to her right knee and right hand. She denies loss of consciousness. She is not on anticoagulants. - Past Medical History (1) High cholesterol Status: Chronic (2) History of stroke Status: Chronic Past Medical History - Allergies and Home Meds Allergies/Adverse Reactions: Allergies hydrochlorothiazide Allergy (Verified 05/02/20 19:27) Other metronidazole [From Flagyl] Allergy (Verified 05/02/20 19:27) Unknown dizziness triamterene Adverse Reaction (Verified 05/02/20 19:27) Other Primary Care Physician: Miguel Teresa MD [Primary Care Provider] - Prior records reviewed: Yes Surgical History: noncontributory Smoking Status: Never smoker - Family History Maternal Family History: Reports: No pertinent history Review of Systems General: Denies: Chills, Fever Eyes: Denies: Visual changes - bilaterally ENT: Denies: Bilateral ear pain Cardiovascular: Denies: Chest pain Respiratory: Denies: Dyspnea Gastrointestinal: Denies: Abdominal pain Musculoskeletal: Reports: Extremity Pain Skin: Reports: Wounds Neurological: Reports: Headache Hematologic: Denies: Easy bruising, Easy bleeding Allergy: Denies: Uticaria Physical Exam Vital Signs/Narrative: Vital Signs Temp Pulse Resp BP Pulse Ox 05/02/20 19:22 98.1 F 81 16 133/67 H 94 Inital Vital Signs reviewed: Yes Head: Normocephalic, - - 1 cm linear laceration to the left mid forehead. Bleeding well controlled. Eyes: Perrl, EOMI, - - Left periorbital ecchymosis Neck: Supple, - - No C-spine tenderness Cardiovascular: Regular rate, Regular rhythm Respiratory: No distress, CTA bilaterally Abdomen: Soft, Nontender Extremities: - - Abrasions to the dorsal right hand. No bony tenderness with full range of motion. Superficial abrasion to anterior right knee with mild bony tenderness. Good range of motion. Chronic left upper extremity contracture from prior stroke Neurological: Alert, Oriented x3, Normal Strength, Normal Sensation Diagnostic/Tx/Re-eval Impressions Brain CT 05/02/20 19:34 IMPRESSION: Chronic involutional changes of the brain. Stable encephalomalacia within the right middle cerebral artery territory consistent with an old infarct. Electronically Signed: Damari Crowley MD at 20:05 EDT Tel , Service support , Knee X-Ray 05/02/20 19:45 IMPRESSION: Degenerative arthrosis. Electronically Signed: Damari Crowley MD at 20:19 EDT Tel , Service support , 05/02/20 19:34 CT Head [Brain/Head without Contrast] [CT] Stat 05/02/20 19:45 Knee 4 or More Views [RAD] Stat - Medical Decision Making Patient was given a tab of [place] for pain which she normally takes at home. Laceration was anesthetized with 2 cc of 1% lidocaine. Wound is cleansed and closed with 2 simple interval sutures. Test results are reviewed with the patient. She will follow her PCP in 5 to 7 days for suture removal. Procedures - Lacerations No standard instances Length: 0.39 in Depth: Sub Q Shape: Linear Laceration repair: Irrigated, Lidocaine, Local Number of Sutures/Birdie: 2 Suture Information: Ethilon, Simple, 5-0 ED Disposition - Plan for ED Patient: Disposition: Home or Assisted Living Diagnosis: Fall, Closed head injury, Facial laceration Instructions: ED Laceration Facial Sutr Tape, ED Mechanical Fall, ED Head Injury Adult Referrals: Miguel Teresa MD [Primary Care Provider] - 7 Days for suture removal
--- NOTE | 2020-05-02 19:45 | RAD_ITS ---
STUDY: X-RAY - RIGHT KNEE REASON FOR EXAM: Female, 70 years old. Fall, bruise to knee. TECHNIQUE: 4 view(s) of the knee. COMPARISON: None. FINDINGS: Normal visualized distal femur. Normal visualized proximal tibia and fibula. Normal proximal tibiofibular articulation. There is mild degenerative arthrosis of the medial femorotibial compartment. There is moderate to severe degenerative arthrosis of the lateral femorotibial compartment with moderate joint space narrowing. There is moderate degenerative arthrosis of the patellofemoral articulation. The soft tissue structures are unremarkable. RAD/Knee 4 or More Views IMPRESSION: Degenerative arthrosis. Electronically Signed: Damari Crowley MD at 20:19 EDT Tel , Service support ,
[2020-05-02] MEDS: HYDROcodone Bitartrate/Apap 5/325 Tablet PO (19:53)
== END 2020-05-02 20:53 | disposition home or self-care (01) ==
PROVIDERS: Emergency Provider Emergency Medicine; PCP Family Medicine
DX: S01.81XA Laceration without foreign body of other part of head, initial encounter (principal); S80.01XA Contusion of right knee, initial encounter; S80.211A Abrasion, right knee, initial encounter; W18.09XA Striking against other object with subsequent fall, initial encounter; Y93.89 Activity, other specified; Y92.512 Supermarket, store or market as the place of occurrence of the external cause; Y99.9 Unspecified external cause status; E78.00 Pure hypercholesterolemia, unspecified; G93.89 Other specified disorders of brain; M17.11 Unilateral primary osteoarthritis, right knee; Z88.1 Allergy status to other antibiotic agents; I69.354 Hemiplegia and hemiparesis following cerebral infarction affecting left non-dominant side
CPT/HCPCS: 12011; 70450; 73564; 99283; 99285

== ENCOUNTER 2020-05-04 20:26 | Emergency (ER) | payer MEDICARE, MEDICAID, SELFPAY ==
[2020-05-04 20:27] VITALS: BP 154/81; PULSE 85; RESP 14; TEMP 36.3; O2SAT 97; BMI 39.0
--- NOTE | 2020-05-04 20:39 | CT_ITS ---
STUDY: CT CERVICAL SPINE WITHOUT CONTRAST REASON FOR EXAM: Female, 70 years old. Fall RADIATION DOSAGE (If Supplied By Facility): CTDIvol = ( 16.82 ) mGy, DLP = ( 358.15 ) mGycm TECHNIQUE: High resolution transaxial imaging was performed without contrast material. Sagittal and coronal images were reconstructed. Individualized dose optimization techniques were used for this CT. COMPARISON: None available. FINDINGS: There is no evidence of fracture or dislocation in the cervical spine. The dens is intact. Alignment is normal. The vertebral body heights are well-maintained. There are mild multilevel degenerative changes with disc space narrowing and small osteophytes. The visualized paraspinal soft tissues are within normal limits. CT/Spine Cervical without Contras IMPRESSION: No fracture or dislocation in the cervical spine. Mild degenerative changes. Electronically Signed: Elmo Alvarado, at 21:36 EDT Tel , Service support ,
--- NOTE | 2020-05-04 20:39 | CT_ITS ---
STUDY: CT BRAIN WITHOUT CONTRAST REASON FOR EXAM: Female, 70 years old. Fall. History of prior stroke. RADIATION DOSAGE (If Supplied By Facility): CTDIvol = ( 44.99 ) mGy, DLP = ( 779.24 ) mGycm TECHNIQUE: Transaxial CT imaging of the brain was performed without administration of intravenous contrast material. Individualized dose optimization techniques were used for this CT. COMPARISON: 05/02/20 FINDINGS: There is a stable old right MCA territory infarct with encephalomalacia. There is no acute bleed or infarct. There are normal white matter tracts. The ventricles are normal in configuration. There is no hydrocephalus. The visualized paranasal sinuses are clear. The mastoid air cells are well aerated. There is no skull fracture. There is a 5.7 x 5.0 x 1.6 cm left facial hematoma. CT/Brain/Head without Contrast IMPRESSION: No acute intracranial abnormality. Stable old right MCA territory infarct with encephalomalacia. 5.7 x 5.0 x 1.6 cm left facial hematoma. Electronically Signed: Elmo Alvarado, at 21:21 EDT Tel , Service support ,
--- NOTE | 2020-05-04 20:39 | CT_ITS ---
STUDY: CT FACIAL BONES WITHOUT CONTRAST REASON FOR EXAM: Female, 70 years old. FELL MULTIPLE TIMES THIS WEEK. BRUISED AND SWOLLEN RIGHT EYE, HX STROKE SEVERAL YEARS AGO RADIATION DOSAGE (If Supplied By Facility): CTDIvol = ( 29.38 ) mGy, DLP = ( 510.73 ) mGycm TECHNIQUE: The patient was scanned in a multi detector CT scanner. Sagittal and coronal images were reconstructed. Individualized dose optimization techniques were used for this CT. COMPARISON: None. FINDINGS: There is a 5.7 x 5.0 x 1.6 cm left facial hematoma. Normal orbital lyons and orbital contents. Normal nasal bones and anterior nasal spine. Normal facial bones. There is no demonstrated fracture. There is mild mucosal hypertrophy in right maxillary sinus. The paranasal sinuses are otherwise clear. CT/Sinus/Facial Bone IMPRESSION: 5.7 x 5.0 x 1.6 cm left facial hematoma. No facial fracture. Mild mucosal hypertrophy in the right maxillary sinus. Electronically Signed: Elmo Alvarado, at 21:30 EDT Tel , Service support ,
--- NOTE | 2020-05-04 20:50 | ED.VIS.GEN ---
History of Present Illness Chief Complaint: Fall Informant: Patient Onset: Today Context: Sudden Onset Timing: Continuous Current Severity: Moderate Maximum Severity: Moderate Narrative: The patient is a 70-year-old female with history of prior stroke presents to the emergency department after a fall. The patient had a similar presentation 2 days ago. She was in a grocery store and lost her balance and fell. It was not a syncopal events. She had a normal noncontrast head CT at that time. She had a laceration which was repaired. The patient states that today, she was walking in her kitchen. She states that her foot got stuck on the linoleum floor. She states she lost her balance and fell forward. She struck her left face where she had the laceration. She states it did start to bleed from that area. She states she also had increased swelling of the eye. She is not on anticoagulants. She denies any nausea or vomiting. Prior similar symptoms: Yes Recent Illness/Hospitalization: No Past Medical History - Allergies and Home Meds Allergies/Adverse Reactions: Allergies hydrochlorothiazide Allergy (Verified 05/04/20 20:27) Other metronidazole [From Flagyl] Allergy (Verified 05/04/20 20:27) Unknown dizziness triamterene Adverse Reaction (Verified 05/04/20 20:27) Other Primary Care Physician: Miguel Teresa MD [Primary Care Provider] - Prior records reviewed: Yes Past Medical History: - - Prior stroke, hypertension, hyperlipidemia Surgical History: noncontributory Smoking Status: Never smoker - Family History Maternal Family History: Reports: No pertinent history Review of Systems General: Denies: Chills, Fever, Sweats Eyes: Denies: Visual changes - bilaterally, Diplopia ENT: Denies: Rhinorrhea, Sore throat Cardiovascular: Denies: Chest pain, Palpitations Respiratory: Denies: Dyspnea, Cough, Dyspnea on exertion Gastrointestinal: Denies: Abdominal pain, Nausea, Vomiting, Diarrhea, Melena, Hematochezia Genitourinary: Denies: Dysuria, Hematuria, Frequency Musculoskeletal: Denies: Back pain, Extremity Pain Skin: Denies: Rash, Wounds Neurological: Denies: Headache, Weakness, Numbness Physical Exam Vital Signs/Narrative: Vital Signs Temp Pulse Resp BP Pulse Ox 05/04/20 20:27 97.4 F L 85 14 154/81 H 97 Inital Vital Signs reviewed: Yes General: Well nourished, Well developed, No Acute Distress Head: Normocephalic, Trauma - Patient does have market facial trauma with periorbital edema encompassing the left eye. The laceration has mild dehiscence but is still approximated. There is no active bleeding. The swelling was retracted. There was no evidence of hyphema. Extraocular muscles are intact. Eyes: Perrl, EOMI ENT: Moist mucous membranes, No rhinorrhea Neck: Supple, Nontender Cardiovascular: Regular rate, Regular rhythm, No murmurs Respiratory: No distress, CTA bilaterally, Chest nontender Abdomen: Soft, Nontender, Nondistended, Normal bowel sounds Back: Nontender, Normal Inspection Extremities: Nontender, No edema Skin: Normal color, No rash Neurological: Alert, Oriented x3, Cranial nerves II-XII grossly intact, Normal Strength, Normal Sensation Psychological: Normal affect, Normal Mood Diagnostic/Tx/Re-eval Clinical Impression(s) from Imaging Studies Brain CT 05/04/20 20:39 IMPRESSION: No acute intracranial abnormality. Stable old right MCA territory infarct with encephalomalacia. 5.7 x 5.0 x 1.6 cm left facial hematoma. Electronically Signed: Elmo Alvarado, at 21:21 EDT Tel , Service support , Cervical Spine CT 05/04/20 20:39 IMPRESSION: No fracture or dislocation in the cervical spine. Mild degenerative changes. Electronically Signed: Elmo Alvarado at 21:36 EDT Tel , Service support , Facial/Sinus 05/04/20 20:39 IMPRESSION: 5.7 x 5.0 x 1.6 cm left facial hematoma. No facial fracture. Mild mucosal hypertrophy in the right maxillary sinus. Electronically Signed: Elmo Alvarado at 21:30 EDT Tel , Service support , - Medical Decision Making The patient presents with facial injury after mechanical fall. She was not prodromal. She states that her foot got stuck when she was walking. There is no hyphema. There was no abnormalities of extraocular motion. She does have rather significant facial hematoma. Head CT, CT C-spine, and CT face were obtained. There is no evidence of fracture or intracranial abnormality. She does have facial hematoma, but the orbits are normal. The facial bones are normal. Ice was applied to the area. The patient was given 1 dose of her home [place]. She was counseled on using ice to christin the swelling. She was also counseled on concerning symptoms and reasons to return. At this point, I do feel that she is safe for outpatient follow-up. Impression 1. Mechanical fall 2. Facial hematoma ED Disposition - Plan for ED Patient: Instructions: ED CONTUSION Face No Wake Up] Referrals: Miguel Teresa MD [Primary Care Provider] -
[2020-05-04] MEDS: HYDROcodone Bitartrate/Apap 5/325 Tablet PO (21:54)
[2020-05-04 22:02] VITALS: BP 146/80; PULSE 78; RESP 18; O2SAT 96
== END 2020-05-04 22:03 | disposition home or self-care (01) ==
LOC: ED 21:33
PROVIDERS: Emergency Provider Emergency Medicine; PCP Family Medicine
DX: S00.83XA Contusion of other part of head, initial encounter (principal); W18.39XA Other fall on same level, initial encounter; Y93.01 Activity, walking, marching and hiking; Y92.000 Kitchen of unspecified non-institutional (private) residence as the place of occurrence of the external cause; Y99.9 Unspecified external cause status; Y84.9 Medical procedure, unspecified as the cause of abnormal reaction of the patient, or of later complication, without mention of misadventure at the time of the procedure; Z86.73 Personal history of transient ischemic attack (TIA), and cerebral infarction without residual deficits; E78.5 Hyperlipidemia, unspecified; I10 Essential (primary) hypertension; Z79.899 Other long term (current) drug therapy; S01.81XD Laceration without foreign body of other part of head, subsequent encounter; W19.XXXD Unspecified fall, subsequent encounter
CPT/HCPCS: 70450; 70486; 72125; 99281; 99283

== ENCOUNTER → 2020-08-08 14:42 | Outpatient (CLI) | payer MEDICARE, MEDICAID, SELFPAY ==
--- NOTE | 2020-08-08 14:47 | RAD_ITS ---
STUDY: X-RAY - THORACIC SPINE REASON FOR EXAM: Female, 70 years old. BACK PAIN, HX OF STROKE AND LEFT HEMIPARALYSIS AND SENSITIVITY TECHNIQUE: 4 view(s) of the thoracic spine were obtained. COMPARISON: 04/30/2017 MRI LS spine. FINDINGS: Normal kyphosis of the thoracic spine. There is no substantial scoliosis. Degenerative changes of the thoracic vertebrae with spurring at the endplates. Moderate to severe wedge compression of T12 and L1 similar to a previous MRI from 05/10/2017. Mild relatively stable compression of T10. Normal disc space heights. The soft tissue structures are unremarkable. RAD/Thoracic Spine 2 Views IMPRESSION: Degenerative changes of the thoracic spine. Stable compression of T12 and L1. Mild relatively stable compression of T10. Electronically Signed: Daniel Constantino DO at 16:10 EST Tel [phone], Service support ,
== END ==
PROVIDERS: PCP Family Medicine; Referring Provider Anesthesiology Pain Medicine; Visit Provider Anesthesiology Pain Medicine
DX: M54.9 Dorsalgia, unspecified (principal)
CPT/HCPCS: 72070

== ENCOUNTER 2021-02-28 19:44 | Inpatient (IN) | payer MEDICARE, MEDICAID, SELFPAY ==
[2021-02-28 19:45] VITALS: BP 140/77; PULSE 88; RESP 16; TEMP 36.8; O2SAT 97; BMI 39.0
[2021-02-28 19:47] VITALS: BP 140/77; PULSE 88; RESP 16; TEMP 36.8; O2SAT 97
--- NOTE | 2021-02-28 22:44 | EX.ED.DYSGE1 ---
HPI History of Present Illness Chief Complaint: Wound Informant: patient Narrative Narrative: Patient is a 70-year-old female with a past medical history of CVA with left-sided deficit who presents to the emergency department for cat scratch. She states that this occurred on Saturday. She went to urgent care yesterday who wrote her prescription for mupirocin. There was some mild drainage from the area of the scratch but was very mild at that time. Upon awaking today the left lower leg is severely swollen, erythematous, tender and warm to the touch. She states she did have some nausea yesterday and has having some chills now but denies any fever. She has not use the antibiotic ointment at this point. She is having a headache but otherwise denies any other complaints. The pain is mild at rest but does hurt severe whenever she touches it. PFSH PFSH Home Medications diltiazem HCl 300 mg PO DAILY 04/09/15 [History Last Taken 11/25/18] gabapentin 300 mg PO BID 04/09/15 [History Last Taken 11/25/18] docusate sodium [DOK] 100 mg PO BID 02/09/17 [History Last Taken 11/25/18] furosemide 40 mg PO DAILY 02/09/17 [History Last Taken 05/22/19] multivitamin [Daily Multiple] 1 ea PO DAILY 02/09/17 [History Last Taken 11/25/18] cholecalciferol (vitamin D3) [Vitamin D3] 2,000 unit PO DAILY 03/19/18 [History Last Taken 11/25/18] potassium chloride [Klor-Con M20] 10 meq PO DAILY 03/19/18 [History Last Taken 11/25/18] oxybutynin chloride 2.5 mg PO BID 11/25/18 [History Last Taken 11/25/18] hydrocodone-acetaminophen 1 tab PO Q6H PRN 08/17/19 [History Last Taken Unknown] alendronate 70 mg PO QWEEK 05/02/20 [History Last Taken Unknown] amitriptyline 75 mg PO QHS 05/02/20 [History Last Taken Unknown] omeprazole 40 mg PO DAILY 05/02/20 [History Last Taken Unknown] atorvastatin 10 mg PO DAILY 02/28/21 [History Last Taken Unknown] calcium 1,200 mg PO DAILY 02/28/21 [History Last Taken Unknown] diclofenac sodium ea TOPICAL 02/28/21 [History Last Taken Unknown] Allergy/AdvReac Type Severity Reaction Status Date / Time hydrochlorothiazide Allergy Other Verified 02/28/21 19:47 metronidazole [From Flagyl] Allergy Unknown Verified 02/28/21 19:47 triamterene AdvReac Other Verified 02/28/21 19:47 Social History Smoking Status: Never smoker ROS ROS ED Constitutional Constitutional ED: Reports chills; Denies fever(s) Eyes Eyes: Denies change in vision ENT ENT ED: Denies epistaxis or rhinorrhea Cardiovascular Cardiovascular: Denies chest pain or palpitations Respiratory/Chest Respiratory/Chest: Denies cough, dyspnea or dyspnea on exertion Gastrointestinal Gastrointestinal: Reports nausea; Denies abdominal pain, diarrhea or vomiting Musculoskeletal Musculoskeletal: Denies back pain or neck pain Integumentary Reports rash Neurologic Neurologic: Denies dizziness, headache(s) or weakness EXAM Physical Exam Const Vital Signs: 02/28/21 19:45 02/28/21 19:47 Temperature 98.2 F 98.2 F Temperature Source Temporal Temporal Pulse Rate 88 88 Respiratory Rate 16 16 Blood Pressure 140/77 H 140/77 H Blood Pressure Mean 98 98 Pulse Ox 97 97 Oxygen Delivery Method Room Air Room Air Positive well nourished and well developed General Appearance ED: well developed and NAD HEENT Reports normocephalic and head/scalp atraumatic Eyes PERRL and EOMs intact bilaterally Neck supple Resp normal respiratory effort and clear to auscultation bilaterally Auscultation: Negative for rales, rhonchi or wheezes Cardio regular rate, regular rhythm and no murmurs GI normal to inspection, nondistended, normoactive bowel sounds and non-tender Palpation: soft; Negative for guarding or rebound tenderness present Extremity normal to inspection Extremity Narrative: Residual deficit with left arm weakness. General Extremety ED: Negative for edema or tenderness General Extremity: Negative for edema Neuro Sensorium / Orientation: alert Psych mental status grossly normal Skin Skin Narrative: Left leg is almost circumferentially erythematous. It is very tender to the touch. The leg is swollen. It does feel very warm. This extends up to the knee. There is some streaking up the posterior leg up to mid thigh. She otherwise is neurovascularly intact. MDM MDM MDM Narrative Medical decision making narrative: Patient presents to the emergency department for cat scratch to left leg. On arrival to the emergency department vital signs within normal limits. The leg does appear severely cellulitic with streaking up the back of the leg. Since this occurred so quickly patient will require IV antibiotics. Will check basic lab work at this time. Basic lab work revealed a mild elevation of her white blood cell count. No other significant acute abnormality. Given the extent of the cellulitis in such a rapid time will bring her to the hospital for IV antibiotics. She is given a dose of Unasyn here in the ED. She is agreeable with this plan. She has remained stable throughout ED stay. Lab Data Labs: Laboratory Results - last 24 hr 02/28/21 02/28/21 02/28/21 23:10 23:10 23:10 WBC 12.6 H RBC 4.63 Hgb 13.8 Hct 43.3 MCV 93.5 MCH 29.8 MCHC 31.9 L RDW Std Deviation 45.5 H RDW Coeff of Adriana 13.2 Plt Count 215 MPV 9.6 Immature Gran % (Auto) 0.400 Neut % (Auto) 80.7 H Lymph % (Auto) 13.8 L [place] % (Auto) 4.6 Eos % (Auto) 0.3 Baso % (Auto) 0.2 Absolute Neuts (auto) 10.1 H Absolute Lymphs (auto) 1.74 Nucleated RBC % 0 Sodium 138 Potassium 3.3 L Chloride 101 Carbon Dioxide 32.0 Anion Gap 5 BUN 11 Creatinine 0.65 Estim Creat Clear Calc 36.53 Est GFR (MDRD) Af Amer 115 Est GFR (MDRD) Non-Af 95 BUN/Creatinine Ratio 17.0 Glucose 122 H Lactic Acid 1.1 Calcium 10.2 H Total Bilirubin 0.60 AST 38 H ALT 52 Alkaline Phosphatase 129 H Total Protein 7.4 Albumin 3.6 Globulin 3.8 Albumin/Globulin Ratio 0.9 Discharge Plan Triage Chief Complaint: Wound ED Provider: Dima Chavis Dx/Rx/DC Orders Clinical Impression: Cellulitis of leg, Cat scratch Primary Care Provider: Miguel Teresa Disposition Disposition: Acute Care [facility]
[2021-02-28 23:33] LABS: Absolute Lymphocyte Count 1.74 X10^3/uL (0.83-4.51); Absolute Neutrophil Count 10.1 X10^3/uL (2.0-7.7); Basophil# 0.02 X10^3/uL; Basophil% 0.2 % (0-1); Eosinophil# 0.04 X10^3/uL; Eosinophils% 0.3 % (0-5); Hematocrit 43.3 % (37-47); Hemoglobin 13.8 g/dL (12.0-15.0); Lymphocyte # 1.74 X10^3/ul (0.83-4.51); Lymphocyte % 13.8 % (19-41); Mean Corp Hgb Conc 31.9 g/dL (32-36); Mean Corpuscular Hgb 29.8 pg (27.0-32.0); Mean Corpuscular Volume 93.5 fL (81-99); Mean Platelet Vol. 9.6 fl (6.2-12.0); Monocyte# 0.58 X10^3/uL; Monocyte% 4.6 % (0-10); NRBC Flagged by Analyzer 0 % (0-5); Neutrophil # 10.14 X10^3/uL (2.7-7.7); Neutrophil % 80.7 % (47-70); Platelet Count 215 K/mm3 (150-450); RBC Distribution Width CV 13.2 % (11.6-14.6); RBC Distribution Width SD 45.5 fl (35.1-43.9); Red Blood Count 4.63 M/mm3 (4.2-5.4); White Blood Count 12.6 K/mm3 (4.4-11.0)
[2021-02-28 23:55] LABS: ALB/GLOB Ratio 0.9 RATIO (0.9-2.4); AST(SGOT) 38 U/L (15-37); Alanine Aminotransfer ALT/SGPT 52 U/L (13-56); Albumin, Serum 3.6 g/dL (3.2-5.0); Alkaline Phosphatase 129 U/L (45-117); Anion Gap 5 (5-15); BUN 11 mg/dL (7-18); Calcium,Total 10.2 mg/dL (8.5-10.1); Chloride 101 mmol/L (98-107); Creatinine, Serum 0.65 mg/dL (0.55-1.02); EST Glomerular Filtration Rate 95 mL/min (>60); Est Glom Filt Rate - Afr Amer 115 mL/min (>60); Estimated Creatinine Clearance 36.53 ml/min; Globulin 3.8 g/dL (2.2-4.2); Glucose 122 mg/dL (74-106); Potassium 3.3 mmol/L (3.5-5.1); Protein, Total 7.4 g/dL (6.4-8.2); Sodium Level 138 mmol/L (136-145)
[2021-03-01] VITALS (8 sets, daily range): BP systolic 110–143; BP diastolic 49–77; PULSE 82–93; RESP 16–18; TEMP 36.8–37.5; O2SAT 92–98; BMI 38.2
[2021-03-01 00:01] LABS: Lactic Acid 1.1 mmol/L (0.4-1.9)
--- NOTE | 2021-03-01 00:21 | PCM.HP.STD ---
HPI - General HPI Narrative AMINATA LEE, is a 70 F with her comorbidities as listed below came to ER for left leg swelling, seepage and mild drainage after she had a cat bite on past Saturday afternoon, about 3 days ago. She went to urgent care yesterday where she was given prescription for mupirocin. Her temperature in urgent care yesterday was 97.9 F and heart rate 86/min. Her swelling, pain and redness extended proximally below knee level. She also will mild subjective fever, chills and headaches and nausea. In ED, afebrile heart rate and blood pressure controlled. Started on IV Unasyn and further admitted. 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 She has hyperesthesia in left lower extremity and probably mild weakness but she was still walking. [facility] Medications diltiazem HCl 300 mg PO DAILY 04/09/15 [History Last Taken 11/25/18] gabapentin 300 mg PO BID 04/09/15 [History Last Taken 11/25/18] docusate sodium [DOK] 100 mg PO BID 02/09/17 [History Last Taken 11/25/18] furosemide 40 mg PO DAILY 02/09/17 [History Last Taken 05/22/19] multivitamin [Daily Multiple] 1 ea PO DAILY 02/09/17 [History Last Taken 11/25/18] cholecalciferol (vitamin D3) [Vitamin D3] 2,000 unit PO DAILY 03/19/18 [History Last Taken 11/25/18] potassium chloride [Klor-Con M20] 10 meq PO DAILY 03/19/18 [History Last Taken 11/25/18] oxybutynin chloride 2.5 mg PO BID 11/25/18 [History Last Taken 11/25/18] hydrocodone-acetaminophen 1 tab PO Q6H PRN 08/17/19 [History Last Taken Unknown] alendronate 70 mg PO QWEEK 05/02/20 [History Last Taken Unknown] amitriptyline 75 mg PO QHS 05/02/20 [History Last Taken Unknown] omeprazole 40 mg PO DAILY 05/02/20 [History Last Taken Unknown] atorvastatin 10 mg PO DAILY 02/28/21 [History Last Taken Unknown] calcium 1,200 mg PO DAILY 02/28/21 [History Last Taken Unknown] diclofenac sodium ea TOPICAL 02/28/21 [History Last Taken Unknown] Allergy/AdvReac Type Severity Reaction Status Date / Time hydrochlorothiazide Allergy Other Verified 02/28/21 19:47 metronidazole [From Flagyl] Allergy Unknown Verified 02/28/21 19:47 triamterene AdvReac Other Verified 02/28/21 19:47 Social History Smoking Status: Never smoker ROS ROS Narrative Constitutional: Subjective fever, headache and nausea. Mild weakness. HEENT: Reports systems reviewed and no addt'l complaints, except as documented Respiratory/Chest: Denies shortness of breath with exertion Gastrointestinal: Denies coffee ground emesis, hematemesis or vomiting Genitourinary: Cystocele with uterovaginal prolapse. Denies burning urination or new urinary tract symptoms Musculoskeletal: Left upper extremity loss of function with contracture. Neurologic: Denies seizure-like activity. migraine. skin: Rash as mentioned in HPI. Endocrinology: Reports systems reviewed and no addt'l complaints, except as documented Hematologic/Lymphatic: Reports systems reviewed and no addt'l complaints, except as documented Rest 12 ROS are negative except as mentioned in HPI Vital Signs Vital Signs Vital Signs: 02/28/21 19:45 02/28/21 19:47 Temperature 98.2 F 98.2 F Temperature Source Temporal Temporal Pulse Rate 88 88 Respiratory Rate 16 16 Blood Pressure 140/77 H 140/77 H Blood Pressure Mean 98 98 Pulse Ox 97 97 Oxygen Delivery Method Room Air Room Air Weight Weight: 200 lb Body Mass Index (BMI) 39.0 Physical Exam Narrative General: Alert, Oriented x3, Cooperative HEENT: Atraumatic, PERRLA, EOMI, Normocephalic Oral: Oral mucosa is dry. No Gingival or Mucosal Lesions/ Ulcerations Neck: Supple, No JVD, Negative Carotid Bruits Lungs: Air entry diminished in bilateral lung bases. No crepitation/rhonchi Cardiovascular: Regular rate, Regular Rhythm, Normal S1, Normal S2, No murmurs Abdomen: Bowel Sounds Present, Soft, Non Tender, Non-Distended : No renal angle tenderness. No suprapubic tenderness. Extremities: Left leg edematous., Capillary Refill Less than 3 Seconds Skin: Left leg below knee level tender, erythematous, indurated with cat scratch markings at medial aspect of vega. Mild drainage and seepage with proximal spreading. Musculoskeletal: No Tenderness to Palpation of Joints or Extremities Neurological: Cranial nerves II-XII grossly intact, DTR 2+/4 and Symmetrical, Neuro grossly intact Psych/Mental Status: Normal Affect, Appropriate. Results Lab / Micro Data Result Diagrams: 02/28/21 23:10 02/28/21 23:10 Labs: Laboratory Results - last 24 hr 02/28/21 23:10: WBC 12.6 H, RBC 4.63, Hgb 13.8, Hct 43.3, MCV 93.5, MCH 29.8, MCHC 31.9 L, RDW Std Deviation 45.5 H, RDW Coeff of Adriana 13.2, Plt Count 215, MPV 9.6, Immature Gran % (Auto) 0.400, Neut % (Auto) 80.7 H, Lymph % (Auto) 13.8 L, Dillon % (Auto) 4.6, Eos % (Auto) 0.3, Baso % (Auto) 0.2, Absolute Neuts (auto) 10.1 H, Absolute Lymphs (auto) 1.74, Nucleated RBC % 0 02/28/21 23:10: Sodium 138, Potassium 3.3 L, Chloride 101, Carbon Dioxide 32.0, Anion Gap 5, BUN 11, Creatinine 0.65, Estim Creat Clear Calc 36.53, Est GFR (MDRD) Af Amer 115, Est GFR (MDRD) Non-Af 95, BUN/Creatinine Ratio 17.0, Glucose 122 H, Calcium 10.2 H, Total Bilirubin 0.60, AST 38 H, ALT 52, Alkaline Phosphatase 129 H, Total Protein 7.4, Albumin 3.6, Globulin 3.8, Albumin/Globulin Ratio 0.9 02/28/21 23:10: Lactic Acid 1.1 Assessment & Plan Assessment/Plan (1) Cellulitis of left leg: (2) Lymphedema: (3) Venous insufficiency: PLAN: This 71-year-old female is being admitted for cellulitis of left leg with history of chronic venous insufficiency and lymphedema, stroke with left-sided weakness. 1. Complicated left leg cellulitis with chronic venous insufficiency and lymphedema: Patient is being admitted on MedSur floor. On IV fluid LR at 100 mill per hour for 1 L. IV Unasyn ordered. Blood cultures x2. MRSA wound screen. Wound care nurse consult. 2. History of right MCA stroke with left upper extremity contracture and loss of function: PT and OT ordered. 3. Dyslipidemia and osteopenia: 4. Degenerative arthritis of left knee, chronic bilateral lower back pain without sciatica. 5. Incomplete uterovaginal prolapse with morbid obesity: BMI 39.1 kg/m?. Weight loss counseling done. Living will/advanced directive/end of life care: Patient does not have living will or advanced directive. After discussion of benefits/risks procedures involved with full code, DNR CC arrest and DNR CC, the patient opted for full code Patient does want artificial life support including intubation, tube feed, ventilator and/chest compression, central venous catheter, vasopressor and DC shock if needed Total time spent in [id number] encounter in discussion of advanced directive 16 minutes. Charges/Coding Visit Charges Inpatient E&M: 31653 Init Hosp L3 Procedures Hospitalists Procedures: 96059 Advncd Care Plan 30 Min
[2021-03-01] MEDS: 0.9% Saline Lock 10 ML Syringe IV (03:04)
[2021-03-01] MEDS: Lactated Ringers 1,000 ML 100 ML IV (03:08)
[2021-03-01] MEDS: Amitriptyline 25 MG Tablet 75 MG PO ×2 (03:27→22:16)
[2021-03-01] MEDS: Potassium Chloride Oral Tablet 20 MEQ 40 MEQ PO (03:27)
[2021-03-01] MEDS: oxyCODONE 5 MG Tablet PO (03:32)
[2021-03-01] MEDS: Acetaminophen 325 MG Tablet 650 MG PO (03:33)
[2021-03-01 05:28] LABS: M R Staph aureus DNA By PCR Negative (Negative); Probe Check PASS; Specimen Processing Control PASS; Staph aureus DNA By PCR NEGATIVE (Negative)
[2021-03-01 07:18] LABS: Absolute Lymphocyte Count 1.43 X10^3/uL (0.83-4.51); Absolute Neutrophil Count 8.5 X10^3/uL (2.0-7.7); Basophil# 0.03 X10^3/uL; Basophil% 0.3 % (0-1); Eosinophil# 0.04 X10^3/uL; Eosinophils% 0.4 % (0-5); Hematocrit 36.1 % (37-47); Hemoglobin 11.6 g/dL (12.0-15.0); Lymphocyte # 1.43 X10^3/ul (0.83-4.51); Lymphocyte % 13.3 % (19-41); Mean Corp Hgb Conc 32.1 g/dL (32-36); Mean Corpuscular Volume 93.3 fL (81-99); Mean Platelet Vol. 10.3 fl (6.2-12.0); Monocyte# 0.67 X10^3/uL; Monocyte% 6.2 % (0-10); NRBC Flagged by Analyzer 0 % (0-5); Neutrophil # 8.53 X10^3/uL (2.7-7.7); Neutrophil % 79.4 % (47-70); Platelet Count 183 K/mm3 (150-450); RBC Distribution Width CV 13.3 % (11.6-14.6); RBC Distribution Width SD 45.1 fl (35.1-43.9); Red Blood Count 3.87 M/mm3 (4.2-5.4); White Blood Count 10.7 K/mm3 (4.4-11.0)
[2021-03-01 07:45] LABS: Anion Gap 5 (5-15); BUN 10 mg/dL (7-18); BUN/Creat Ratio 25.1 RATIO (10-20); Calcium,Total 9.4 mg/dL (8.5-10.1); Chloride 105 mmol/L (98-107); EST Glomerular Filtration Rate 167 mL/min (>60); Est Glom Filt Rate - Afr Amer 202 mL/min (>60); Estimated Creatinine Clearance 36.53 ml/min; Glucose 106 mg/dL (74-106); Magnesium 1.9 mg/dL (1.6-2.6); Phosphorus 1.9 mg/dL (2.5-4.9); Potassium 3.6 mmol/L (3.5-5.1); Sodium Level 138 mmol/L (136-145)
[2021-03-01] MEDS: Potassium Chloride Oral Tablet 20 MEQ PO (07:54)
--- NOTE | 2021-03-01 08:44 | NURSING ---
wound photo: left lower leg
[2021-03-01] MEDS: Cholecalciferol (VIT D3) 25 MCG TABLET (1,000 UNITS) 50 MCG PO (09:54)
[2021-03-01] MEDS: dilTIAZem CD 300 MG Capsule PO (09:54)
[2021-03-01] MEDS: Gabapentin 300 MG Capsule PO ×2 (09:54→22:16)
[2021-03-01] MEDS: Oxybutynin 5 MG Tablet 2.5 MG PO ×2 (09:54→22:16)
[2021-03-01] MEDS: Furosemide 40 MG Tablet PO (09:54)
[2021-03-01] MEDS: Enoxaparin 40 MG/0.4 ML Syringe SC (09:54)
[2021-03-01] MEDS: Pantoprazole Sodium 40 MG Tablet PO (09:55)
[2021-03-01] MEDS: HYDROcodone Bitartrate/Apap 5/325 Tablet PO ×2 (10:01→22:22)
--- NOTE | 2021-03-01 10:47 | CASEMGMT ---
JERRICA DIMAS Assessment: Face to Face with pt for initial transition planning/care coordination assessment. JERRICA DIMAS introduced self and role at [facility], pt voices understanding and consents to assessment. Pt is A/O x4 and answers all questions appropriately at this time. Pt lying in bed in no distress. Care providers, pharmacy, and demographics verified/updated. Admitting Dx: L leg cellulitis PCP:Brii Specialists:Boom, pain mgmt Preferred Pharmacy: [facility] while pt inpatient [facility] Prescription Benefit: yes LW/HPOA: Pt states she has a LW/DPOA and her son and dtr are her DPOA equally. She is aware that it is not on file at [facility] and she may bring in to be scanned to the chart. LNOK: Joe Del Angel, son; Laura Del Angel, dtr Living Arrangements: Pt lives in a single story house with one step to enter. Pt states she is allowing an old family friend to stay in her guest room currently. Pt states she is I in ADL's and denies concerns at home. Transportation: Pt states she drives self and denies issues with transportation. DME/HHC/SNF: Pt has a shower seat, grab bars in the bathroom, handheld shower, chairlift to her basement, walk in shower, cane which she uses when she is outdoors. Pt states she has had [facility] and another that she is unsure of the name. She has been in [facility] and [facility]. Pt has Companions who come Saturday through Saturday for 2 hours a day. Her passport case management manager is Bibiana Martel. She states she will call Bibiana to make her aware of the admission to the hospital. Notified Iris CHERRY as well. Pt states no concerns with going home at time of dc. Pt states no further concerns/needs. CM to follow. Advised pt to ask CM if any further question/concerns/needs arise, voices understanding. Pt Goal: Home Plan: Home
--- NOTE | 2021-03-01 10:57 | PCM.HOSP.N ---
Hospitalist Note Janay Frederick is a 70-year-old white female who was admitted early this morning with left lower extremity cellulitis. She states that approximately 3 days ago she was walking across the room and almost tripped over her granddaughters kitten. And return the cat scratched her left lower extremity. She developed swelling and erythema in her left lower extremity and went to the urgent care on 810 where she was given a prescription for topical Bactroban. She does have lower extremity chronic venous insufficiency related to decreased mobility secondary to a right MCA stroke that she suffered from 32 years ago. She has persistent hyperesthesia in the left lower extremity with continued erythema and edema that is worse than her baseline per her report. The erythema has not extended beyond the outline that was placed in the emergency department. She will be continued on IV Unasyn. Wound and blood cultures are pending. Today her white count has normalized. Her Phos is 1.9 and will be replaced orally. MRSA PCR was negative. Diagnoses: Complicated left lower extremity cellulitis secondary to a cat scratch Left lower extremity chronic venous insufficiency/lymphedema History of right MCA stroke Hyperlipidemia Osteopenia DJD of the left knee status post arthroplasty in 2011 Ureterovaginal prolapse Obesity Hypertension Neuropathy Chronic pain Urinary incontinence
--- NOTE | 2021-03-01 12:11 | CHAPLAIN ---
Type of Pastoral Visit _x__ Initial Visit ___ Follow-up Visit ___ On-call Visit ___ General Patient Visit ___ Spiritual Assessment ___ Family Conference ___ Bereavement ___ Rapid Response ___ Code Blue ___ Other (describe below) Pastoral Care Referral From _x__ Patient ___ Family ___ Nurse ___ Physician ___ Supervisor Machine Setter ___ Teller Head ___ Other (describe below) Sacrament/Intervention _x__ Active listening ___ Anointing ___ Yazidism ___ Bereavement ___ Communion ___ Fadia exploration ___ _x__ Life review _x__ Prayer ___ Reconciliation ___ Sacrament of Sick _x__ Supportive presence ___ Wedding ___ Other (describe below) Pastoral Comments
--- NOTE | 2021-03-01 13:17 | CASEMGMT ---
SOCIAL WORK Call to patient's Passport Merline DIMAS to update on patient's admission. No answer, left message. Koko Pham, TRUCK BODY BUILDER, WILDLIFE CONSERVATIONIST
[2021-03-01] MEDS: Atorvastatin Calcium 10 MG Tablet PO (22:16)
[2021-03-02] VITALS (7 sets, daily range): BP systolic 106–119; BP diastolic 55–67; PULSE 78–91; RESP 16–18; TEMP 36.8–37; O2SAT 92–98
[2021-03-02 06:27] LABS: Absolute Lymphocyte Count 1.71 X10^3/uL (0.83-4.51); Absolute Neutrophil Count 4.1 X10^3/uL (2.0-7.7); Basophil# 0.01 X10^3/uL; Basophil% 0.2 % (0-1); Eosinophil# 0.16 X10^3/uL; Eosinophils% 2.4 % (0-5); Hematocrit 33.6 % (37-47); Hemoglobin 10.6 g/dL (12.0-15.0); Lymphocyte # 1.71 X10^3/ul (0.83-4.51); Lymphocyte % 25.9 % (19-41); Mean Corp Hgb Conc 31.5 g/dL (32-36); Mean Corpuscular Hgb 29.8 pg (27.0-32.0); Mean Corpuscular Volume 94.4 fL (81-99); Mean Platelet Vol. 10.1 fl (6.2-12.0); Monocyte# 0.59 X10^3/uL; Monocyte% 8.9 % (0-10); NRBC Flagged by Analyzer 0 % (0-5); Neutrophil # 4.11 X10^3/uL (2.7-7.7); Neutrophil % 62.3 % (47-70); Platelet Count 161 K/mm3 (150-450); RBC Distribution Width CV 13.3 % (11.6-14.6); RBC Distribution Width SD 46.4 fl (35.1-43.9); Red Blood Count 3.56 M/mm3 (4.2-5.4); White Blood Count 6.6 K/mm3 (4.4-11.0)
[2021-03-02 06:48] LABS: Anion Gap 5 (5-15); BUN 9 mg/dL (7-18); BUN/Creat Ratio 20.3 RATIO (10-20); Calcium,Total 8.3 mg/dL (8.5-10.1); Chloride 107 mmol/L (98-107); Creatinine, Serum 0.44 mg/dL (0.55-1.02); EST Glomerular Filtration Rate 148 mL/min (>60); Est Glom Filt Rate - Afr Amer 179 mL/min (>60); Estimated Creatinine Clearance 36.53 ml/min; Glucose 98 mg/dL (74-106); Phosphorus 2.4 mg/dL (2.5-4.9); Potassium 3.3 mmol/L (3.5-5.1); Sodium Level 140 mmol/L (136-145)
[2021-03-02] MEDS: Oxybutynin 5 MG Tablet 2.5 MG PO ×2 (09:00→21:38)
[2021-03-02] MEDS: Potassium Chloride Oral Tablet 20 MEQ 40 MEQ PO (09:02)
[2021-03-02] MEDS: Calcium Carbonate 500 MG Tablet 1000 MG PO (09:02)
[2021-03-02] MEDS: Pantoprazole Sodium 40 MG Tablet PO (09:02)
[2021-03-02] MEDS: Potassium Chloride Oral Tablet 20 MEQ PO (09:03)
[2021-03-02] MEDS: Cholecalciferol (VIT D3) 25 MCG TABLET (1,000 UNITS) 50 MCG PO (09:03)
[2021-03-02] MEDS: dilTIAZem CD 300 MG Capsule PO (09:04)
[2021-03-02] MEDS: Gabapentin 300 MG Capsule PO ×2 (09:04→21:37)
[2021-03-02] MEDS: Furosemide 40 MG Tablet PO (09:04)
[2021-03-02] MEDS: Enoxaparin 40 MG/0.4 ML Syringe SC (09:04)
--- NOTE | 2021-03-02 12:03 | PN.HOSP_ITS ---
Documented by User: Keesha Luque NP, [employer] 03/02/21 12:15 Subjective Subjective Patient seen and examined. Reports left lower extremity itching. Denies fever, chills. Denies significant left lower extremity discomfort. Objective Data Objective Data Vital Signs: Vital Signs Temp Pulse Resp BP Pulse Ox 98.2 F 78 16 119/64 98 03/02/21 08:22 03/02/21 08:22 03/02/21 08:22 03/02/21 08:22 03/02/21 08:22 Oxygen Delivery Method Room Air Weight: 195 lb 15.855 oz Body Mass Index (BMI) 38.2 Intake & Output: Intake and Output for Last 24 Hours 02/28/21 03/01/21 03/02/21 23:59 23:59 23:59 Intake Total 2918.00 / 2918.00 524 / 524 Output Total 1100 / 1100 200 / 200 Balance 1818.00 / 1818.00 324 / 324 Medical Nutrition Assessment Dietitian: Nutrition Therapy Diagnosis Start: 03/01/21 15:17 Freq: Status: Active Protocol: Document 03/01/21 15:51 BP (Rec: 03/01/21 15:51 BP [id number]) Nutrition Malnutrition Evidence of Malnutrition Exists No Intake Problem Inadequate Energy Intake Etiology Predicted inadequate energy intake related to lack of motivation to consume sufficient energy Signs/Symptoms as evidenced by pt comments reporting to consume 1 meal per day due to busy schedule. Status Active Problem Recommendation Dietitian Recommendations/Changes Continue Current diet order with ensure enlive 120 ml at medpass. Lab / Micro Data Result Diagrams: 03/02/21 05:56 03/02/21 05:56 Labs: Laboratory Results - last 24 hr 03/02/21 05:56: WBC 6.6, RBC 3.56 L, Hgb 10.6 L, Hct 33.6 L, MCV 94.4, MCH 29.8, MCHC 31.5 L, RDW Std Deviation 46.4 H, RDW Coeff of Adriana 13.3, Plt Count 161, MPV 10.1, Immature Gran % (Auto) 0.300, Neut % (Auto) 62.3, Lymph % (Auto) 25.9, Surry % (Auto) 8.9, Eos % (Auto) 2.4, Baso % (Auto) 0.2, Absolute Neuts (auto) 4.1, Absolute Lymphs (auto) 1.71, Nucleated RBC % 0 03/02/21 05:56: Sodium 140, Potassium 3.3 L, Chloride 107, Carbon Dioxide 28.0, Anion Gap 5, BUN 9, Creatinine 0.44 L, Estim Creat Clear Calc 36.53, Est GFR (MDRD) Af Amer 179, Est GFR (MDRD) Non-Af 148, BUN/Creatinine Ratio 20.3 H, Glucose 98, Calcium 8.3 L, Phosphorus 2.4 L Micro: Microbiology 03/01/21 03:10 Wound - Leg, Left Gram Stain - Final Physical Exam Const alert, oriented x3 and no apparent distress Orientation / Consciousness: awake, oriented to person, oriented to place and o riented to time HEENT normocephalic and moist oral mucous membranes Eyes PERRL, EOMs intact bilaterally and conjunctivae normal Neck no lymphadenopathy Resp normal respiratory effort and clear to auscultation bilaterally Cardio regular rate, regular rhythm and no murmurs Peripheral Pulses: pulses 2+ throughout GI normal to inspection, nondistended, normoactive bowel sounds, non-tender and non-distended Extremity normal to inspection Skin no rashes or lesions noted Skin Narrative: Left lower extremity erythema and edema. Edson wrap intact. Area of erythema outside Edson wrap marked. Lesions: no lesions Rashes: no rashes Trauma: no lacerations or abrasions Neuro CN's II-XII intact bilaterally, no focal motor deficits, no sensory deficits noted and deep tendon reflexes 2+ bilaterally Psych mental status grossly normal and affect normal Assessment & Plan Assessment/Plan (1) Cellulitis of left leg: (2) Cat scratch: PLAN: 1. Left lower extremity cellulitis secondary to cat scratch-on IV Unasyn. Wound and blood cultures show no growth thus far. Anticipate transition to oral regimen and discharge tomorrow if continued improvement. 2. Chronic left lower extremity venous insufficiency/lymphedema-Edson wrap, Lasix regimen. 3. History of right MCA stroke with chronic left-sided deficits- PT/OT. Continue statin. Not on aspirin? 4. Hypertension-on Cardizem, Lasix. 5. Hyperlipidemia-continue statin. 6. Urinary incontinence/uterovaginal prolapse 7. Obesity-encouraged diet and lifestyle modifications. Nutrition consult. 8. Chronic pain/neuropathy/DJD of the left knee status post arthroplasty-PT/OT. As needed pain regimen. 9. History of migraines-on amitriptyline. Reports Cardizem is for migraines as well. DVT prophylaxis-Lovenox subcu This patient was seen by Keesha Luque NP-C under the supervision of Dr. Ayala. Documented by User: Dr. Serina Ayala DO 03/02/21 14:01 Subjective Subjective Patient was seen in conjunction with Keesha Luque NP. The following is representation my independent history and physical examination. Please see below for addendum to above. Patient states that she overall is feeling better today. She has had chronic hyper paresthesia related to her stroke in the past on that left side in general but states that the acute changes are improving. She also notes that her swelling is improved as well. She is anxious to go home but understands why she is not ready yet to go home. Objective Data Lab / Micro Data Result Diagrams: 03/02/21 05:56 03/02/21 05:56 Physical Exam Const alert, oriented x3 and no apparent distress Constitutional Narrative: Older white female lying in bed, appears comfortable, nursing at bedside, nontoxic Exam Limitations: no limitations Resp normal respiratory effort, no retractions, no use of accessory muscles and clear to auscultation bilaterally Auscultation: Negative for crackles, rales, rhonchi or wheezes Cardio regular rate, regular rhythm, S1 normal heart sound, S2 normal heart sound, no murmurs, no rub, no gallops, no clicks and no JVD GI normal to inspection, nondistended, normoactive bowel sounds, soft to palpation, non-tender and non-distended Extremity Extremity Narrative: 2+ left lower extremity pitting edema General Extremity: edema Peripheral Pulses: Yes pulses 2+ throughout Skin skin turgor normal, no jaundice, no petechiae and no mottling Skin Narrative: Persistent erythema and puncture wounds noted on left lower e xtremity, erythema is improving and retracting Neuro oriented x3 and CN's II-XII intact bilaterally Sensorium / Orientation: awake, alert, oriented to person, oriented to place and oriented to time Assessment & Plan Assessment/Plan (1) Cellulitis of left leg: (2) Cat scratch: (3) History of stroke: PLAN: Assessment: Complicated left lower extremity cellulitis secondary to a cat scratch Left lower extremity chronic venous insufficiency/lymphedema History of right MCA stroke Hyperlipidemia Osteopenia DJD of the left knee status post arthroplasty in 2011 Ureterovaginal prolapse Obesity Hypertension Neuropathy Chronic pain Urinary incontinence Plan: -Overall patient's cellulitis is improving with IV Unasyn -We will continue 1 more day of IV antibiotics and if patient has continued improvement we will plan for discharge on oral Augmentin on 03/03/2021--> day 2 of 10 for antibiotics -Patient with chronic left lower extremity edema as a result of her stroke--> continue compression dressings Charges/Coding Visit Charges Inpatient E&M: 66266 Subs Hosp L2
[2021-03-02] MEDS: HYDROcodone Bitartrate/Apap 5/325 Tablet PO ×2 (13:33→21:37)
--- NOTE | 2021-03-02 16:08 | NURSING ---
This RN reviewed SN charting. All meds administered by SN were with this RN
[2021-03-02] MEDS: Amitriptyline 25 MG Tablet 75 MG PO (21:37)
[2021-03-02] MEDS: Atorvastatin Calcium 10 MG Tablet PO (21:38)
[2021-03-03 03:24] VITALS: BP 115/62; PULSE 84; RESP 18; TEMP 37; O2SAT 92
[2021-03-03 07:05] VITALS: O2SAT 88
[2021-03-03 07:13] LABS: Absolute Lymphocyte Count 1.52 X10^3/uL (0.83-4.51); Absolute Neutrophil Count 3.2 X10^3/uL (2.0-7.7); Basophil# 0.01 X10^3/uL; Basophil% 0.2 % (0-1); Eosinophil# 0.14 X10^3/uL; Eosinophils% 2.6 % (0-5); Hematocrit 36.2 % (37-47); Hemoglobin 11.2 g/dL (12.0-15.0); Lymphocyte # 1.52 X10^3/ul (0.83-4.51); Lymphocyte % 28.1 % (19-41); Mean Corp Hgb Conc 30.9 g/dL (32-36); Mean Corpuscular Hgb 29.5 pg (27.0-32.0); Mean Corpuscular Volume 95.3 fL (81-99); Mean Platelet Vol. 10.4 fl (6.2-12.0); Monocyte# 0.47 X10^3/uL; Monocyte% 8.7 % (0-10); NRBC Flagged by Analyzer 0 % (0-5); Neutrophil # 3.24 X10^3/uL (2.7-7.7); Platelet Count 191 K/mm3 (150-450); RBC Distribution Width CV 13.4 % (11.6-14.6); RBC Distribution Width SD 46.9 fl (35.1-43.9); White Blood Count 5.4 K/mm3 (4.4-11.0)
[2021-03-03 07:44] LABS: Anion Gap 4 (5-15); BUN 9 mg/dL (7-18); BUN/Creat Ratio 20.3 RATIO (10-20); Calcium,Total 8.6 mg/dL (8.5-10.1); Chloride 109 mmol/L (98-107); Creatinine, Serum 0.44 mg/dL (0.55-1.02); EST Glomerular Filtration Rate 148 mL/min (>60); Est Glom Filt Rate - Afr Amer 179 mL/min (>60); Estimated Creatinine Clearance 36.53 ml/min; Glucose 101 mg/dL (74-106); Potassium 3.8 mmol/L (3.5-5.1); Sodium Level 139 mmol/L (136-145)
[2021-03-03] MEDS: HYDROcodone Bitartrate/Apap 5/325 Tablet PO ×2 (07:48→13:13)
[2021-03-03] MEDS: Potassium Chloride Oral Tablet 20 MEQ PO (07:49)
[2021-03-03] MEDS: 0.9% Saline Lock 10 ML Syringe IV ×2 (08:14→12:29)
[2021-03-03 09:24] VITALS: BP 118/73; PULSE 86; RESP 18; TEMP 36.6; O2SAT 93
[2021-03-03] MEDS: Oxybutynin 5 MG Tablet 2.5 MG PO (09:27)
[2021-03-03] MEDS: dilTIAZem CD 300 MG Capsule PO (09:27)
[2021-03-03] MEDS: Enoxaparin 40 MG/0.4 ML Syringe SC (09:28)
[2021-03-03] MEDS: Furosemide 40 MG Tablet PO (09:28)
[2021-03-03] MEDS: Pantoprazole Sodium 40 MG Tablet PO (09:28)
[2021-03-03] MEDS: Calcium Carbonate 500 MG Tablet 1000 MG PO (09:28)
[2021-03-03] MEDS: Gabapentin 300 MG Capsule PO (09:28)
[2021-03-03] MEDS: Cholecalciferol (VIT D3) 25 MCG TABLET (1,000 UNITS) 50 MCG PO (09:29)
[2021-03-03 09:30] VITALS: PULSE 80
--- NOTE | 2021-03-03 11:45 | PCM.DC ---
Discharge Instructions Diet Discharge Diet: 1999 Calorie Control Diet Activity Discharge Activity: Return to Normal Activity Dressing / Incision Call your doctor if your incision/area has: Continuous Slow Oozing, Sudden Increased Bleeding, Increased Pain/ Swelling, Increased Redness, Foul Smelling Discharge and Swelling at the incision site Call your doctor if you observe: Fever of 101 or Higher Follow Up Care Test Results: Test results from this visit will be discussed in further detail at your follow-up appointment, if applicable. Discharge Plan Admission Admit Date/Time: 03/01/21 00:51 Primary Reason for Your Visit: Left lower extremity cellulitis, cat scratch Attending Provider: Serina Ayala Primary Care Provider: Miguel Teresa Discharge Orders/Prescriptions Prescriptions: New amoxicillin-pot clavulanate [Augmentin] 875-125 mg tablet 1 tab PO BID Qty: 16 RF: 0 Continued diltiazem HCl 300 MG capsule,extended release 24hr 300 mg PO DAILY RF: 0 gabapentin 300 MG capsule 300 mg PO BID RF: 0 multivitamin [Daily Multiple] 1 EACH tablet 1 ea PO DAILY RF: 0 docusate sodium [DOK] 100 MG capsule 100 mg PO BID RF: 0 furosemide 20 MG tablet 40 mg PO DAILY RF: 0 cholecalciferol (vitamin D3) [Vitamin D3] 2,000 UNIT capsule 2,000 unit PO DAILY RF: 0 potassium chloride [Klor-Con M20] 20 MEQ tablet 10 meq PO DAILY RF: 0 oxybutynin chloride 5 MG tablet 2.5 mg PO BID RF: 0 hydrocodone-acetaminophen 1 TABLET tablet 1 tab PO Q6H PRN (Reason: Severe Pain (6-10/10)) RF: 0 amitriptyline 75 MG tablet 75 mg PO QHS RF: 0 atorvastatin 10 mg Tablet 10 mg PO DAILY RF: 0 hydrocortisone 2.5 % Cream 1 applic TOPICAL BID PRN (Reason: Hemorrhoids) RF: 0 Referrals / Follow Up: Wound Health [Outside] - Within 1 Week Miguel Teresa MD [Primary Care Provider] - 03/13/21 2:00 pm Disposition Disposition (needs filled in before D/C Order can be placed): Home, Self Care
--- NOTE | 2021-03-03 12:15 | PCM.DC.SUM ---
Documented by User: Keesha Luque NP, PHYSICIAN GENERAL PRACTICE-C 03/03/21 12:21 Providers Date of Admission: 03/01/21 Date of Discharge: 03/03/21 Primary Care Physician: Dr. 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 Routine Comment: Reason For Visit: LEFT LEG CELLULITIS Diagnosis Discharge Diagnosis (1) Cellulitis of left leg: Status: Acute Code(s): L03.116 - Cellulitis of left lower limb (2) Cat scratch: Status: Acute Code(s): W55.03XA - Scratched by cat, initial encounter (3) History of stroke: Status: Chronic Code(s): Z86.73 - Personal history of transient ischemic attack (TIA), and cerebral infarction without residual deficits Medications at Discharge Home Medications diltiazem HCl 300 mg PO DAILY 04/09/15 gabapentin 300 mg PO BID 04/09/15 docusate sodium [DOK] 100 mg PO BID 02/09/17 furosemide 40 mg PO DAILY 02/09/17 multivitamin [Daily Multiple] 1 ea PO DAILY 02/09/17 cholecalciferol (vitamin D3) [Vitamin D3] 2,000 unit PO DAILY 03/19/18 potassium chloride [Klor-Con M20] 10 meq PO DAILY 03/19/18 oxybutynin chloride 2.5 mg PO BID 11/25/18 hydrocodone-acetaminophen 1 tab PO Q6H PRN 08/17/19 amitriptyline 75 mg PO QHS 05/02/20 atorvastatin 10 mg PO DAILY 02/28/21 hydrocortisone 1 applic TOPICAL BID PRN 03/01/21 amoxicillin-pot clavulanate [Augmentin] 1 tab PO BID #16 tab 03/03/21 Hospital Course Operations None Procedures None Summary of Care Provided Minutes Spent on Discharge: 35 Hospital Course: Patient is a 70-year-old female admitted 03/01/2021 due to left lower extremity redness and swelling. 1. Left lower extremity cellulitis secondary to cat scratch-on IV Unasyn during admission, transition to oral Augmentin to complete 10-day course. Wound and blood cultures show no growth. Continue daily dressing changes to left lower extremity: Wash left lower extremity daily with soap and water, pat dry. Place dry dressing over puncture sites and wrapped with Kerlix and Edson wrap from the base of toes to just below knees. Change daily and as needed. Elevate lower extremities as much as possible. Declines home health at this time. Recommend follow-up with PCP and wound center in 1 week. 2. Chronic left lower extremity venous insufficiency/lymphedema-Edson wrap, Lasix regimen. 3. 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 Not on aspirin? 4. Hypertension-on Cardizem, Lasix. 5. Hyperlipidemia-continue statin. 6. Urinary incontinence/uterovaginal prolapse 7. Obesity-encouraged diet and lifestyle modifications. 8. Chronic pain/neuropathy/DJD of the left knee status post arthroplasty-Continue home as needed pain regimen. 9. History of migraines-on amitriptyline. Reports Cardizem is for migraines as well. Physical Exam Const alert, oriented x3 and no apparent distress Orientation / Consciousness: awake, oriented to person, oriented to place and oriented to time HEENT normocephalic and moist oral mucous membranes Eyes PERRL, EOMs intact bilaterally and conjunctivae normal Neck no lymphadenopathy Resp normal respiratory effort and clear to auscultation bilaterally Cardio regular rate, regular rhythm and no murmurs Peripheral Pulses: pulses 2+ throughout GI normal to inspection, nondistended, normoactive bowel sounds, non-tender and non-distended Extremity normal to inspection Skin no rashes or lesions noted Skin Narrative: Left lower extremity erythema and edema. Erythema improved. Lesions: no lesions Rashes: no rashes Trauma: no lacerations or abrasions Neuro CN's II-XII intact bilaterally, no focal motor deficits, no sensory deficits noted and deep tendon reflexes 2+ bilaterally Psych mental status grossly normal and affect normal Patient seen and examined prior to discharge. Physical assessment as noted above. Patient is stable for discharge with follow up recommendations as noted above. This patient was seen by IVY Katz under the supervision of Dr. Ayala. Medical Records Data Medical Nutrition Assessment Dietitian: Nutrition Therapy Diagnosis Start: 03/01/21 15:17 Freq: Status: Active Protocol: Document 03/01/21 15:51 BP (Rec: 03/01/21 15:51 BP [id number]) Nutrition Malnutrition Evidence of Malnutrition Exists No Intake Problem Inadequate Energy Intake Etiology Predicted inadequate energy intake related to lack of motivation to consume sufficient energy Signs/Symptoms as evidenced by pt comments reporting to consume 1 meal per day due to busy schedule. Status Active Problem Recommendation Dietitian Recommendations/Changes Continue Current diet order with ensure enlive 120 ml at [employer]. Weight / BMI Weight Weight: 195 lb 15.855 oz Body Mass Index (BMI) 38.2 ABG / Lab / Microbiology Data Result Diagrams: 03/03/21 06:04 03/03/21 06:04 Laboratory: Laboratory Results - last 24 hr 03/03/21 06:04: WBC 5.4, RBC 3.80 L, Hgb 11.2 L, Hct 36.2 L, MCV 95.3, MCH 29.5, MCHC 30.9 L, RDW Std Deviation 46.9 H, RDW Coeff of Adriana 13.4, Plt Count 191, MPV 10.4, Immature Gran % (Auto) 0.400, Neut % (Auto) 60.0, Lymph % (Auto) 28.1, [place] % (Auto) 8.7, Eos % (Auto) 2.6, Baso % (Auto) 0.2, Absolute Neuts (auto) 3.2, Absolute Lymphs (auto) 1.52, Nucleated RBC % 0 03/03/21 06:04: Sodium 139, Potassium 3.8, Chloride 109 H, Carbon Dioxide 26.0, Anion Gap 4 L, BUN 9, Creatinine 0.44 L, Estim Creat Clear Calc 36.53, Est GFR (MDRD) Af Amer 179, Est GFR (MDRD) Non-Af 148, BUN/Creatinine Ratio 20.3 H, Glucose 101, Calcium 8.6 Microbiology: Microbiology 02/28/21 23:20 Blood Culture (Wb) - Right Forearm Blood Culture - Preliminary No growth in 48 hours. 02/28/21 23:10 Blood Culture (Wb) - Anticubital Right Blood Culture - Preliminary No growth in 48 hours. 03/01/21 03:10 Wound - Leg, Left Gram Stain - Final 03/01/21 03:10 Wound - Leg, Left Wound Culture - Preliminary No growth-Final to follow D/C Instructions Discharge Diet: 2000 Calorie Control Diet Call your doctor if your incision/area has: Continuous Slow Oozing, Sudden Increased Bleeding, Increased Pain/ Swelling, Increased Redness, Foul Smelling Discharge and Swelling at the incision site Call your doctor if you observe: Fever of 101 or Higher Meaningful Use Info Meaningful Use Diagnoses (Choose all that apply): None applicable Discharge Plan Admission Admit Date/Time: 03/01/21 00:51 Primary Reason for Your Visit: Left lower extremity cellulitis, cat scratch Attending Provider: Serina Ayala Primary Care Provider: Miguel Teresa Discharge Orders/Prescriptions Prescriptions: New amoxicillin-pot clavulanate [Augmentin] 875-125 mg tablet 1 tab PO BID Qty: 16 RF: 0 Continued diltiazem HCl 300 MG capsule,extended release 24hr 300 mg PO DAILY RF: 0 gabapentin 300 MG capsule 300 mg PO BID RF: 0 multivitamin [Daily Multiple] 1 EACH tablet 1 ea PO DAILY RF: 0 docusate sodium [DOK] 100 MG capsule 100 mg PO BID RF: 0 furosemide 20 MG tablet 40 mg PO DAILY RF: 0 cholecalciferol (vitamin D3) [Vitamin D3] 2,000 UNIT capsule 2,000 unit PO DAILY RF: 0 potassium chloride [Klor-Con M20] 20 MEQ tablet 10 meq PO DAILY RF: 0 oxybutynin chloride 5 MG tablet 2.5 mg PO BID RF: 0 hydrocodone-acetaminophen 1 TABLET tablet 1 tab PO Q6H PRN (Reason: Severe Pain (6-10/10)) RF: 0 amitriptyline 75 MG tablet 75 mg PO QHS RF: 0 atorvastatin 10 mg Tablet 10 mg PO DAILY RF: 0 hydrocortisone 2.5 % Cream 1 applic TOPICAL BID PRN (Reason: Hemorrhoids) RF: 0 Referrals / Follow Up: Wound Health [Outside] - Within 1 Week Miguel Teresa MD [Primary Care Provider] - 03/13/21 2:00 pm Disposition Disposition (needs filled in before D/C Order can be placed): Home, Self Care Documented by User: Dr. Serina Ayala DO 03/03/21 13:49 Providers Date of Admission: 03/01/21 Reason For Visit: LEFT LEG CELLULITIS Medications at Discharge Home Medications diltiazem HCl 300 mg PO DAILY 04/09/15 gabapentin 300 mg PO BID 04/09/15 docusate sodium [DOK] 100 mg PO BID 02/09/17 furosemide 40 mg PO DAILY 02/09/17 multivitamin [Daily Multiple] 1 ea PO DAILY 02/09/17 cholecalciferol (vitamin D3) [Vitamin D3] 2,000 unit PO DAILY 03/19/18 potassium chloride [Klor-Con M20] 10 meq PO DAILY 03/19/18 oxybutynin chloride 2.5 mg PO BID 11/25/18 hydrocodone-acetaminophen 1 tab PO Q6H PRN 08/17/19 amitriptyline 75 mg PO QHS 05/02/20 atorvastatin 10 mg PO DAILY 02/28/21 hydrocortisone 1 applic TOPICAL BID PRN 03/01/21 amoxicillin-pot clavulanate [Augmentin] 1 tab PO BID #16 tab 03/03/21 Hospital Course Operations None Procedures None Summary of Care Provided Minutes Spent on Discharge: 36 Hospital Course: This patient was seen in conjunction with Keesha Luque NP. The following is representation of my independent history and physical examination. See below for addendum. Ms. Frederick is a 70-year-old white female who presented to the emergency department at [facility] on 03/31/2021 for left lower extremity swelling, seepage, and drainage after she had a cat scratch which occurred on Saturday afternoon (3 days prior to presentation). She reported she was taking care of her granddaughters cat and she was walking across the room and has a gait abnormality as a result of a stroke she had 32 years ago. She accidentally stepped on the cat and it responded with a scratch to her leg. She reported progressive acute on chronic swelling of that left lower extremity and pain and redness that started to extend just distal to her knee joint. She also complained of subjective fevers chills and headaches with nausea. She had a mild leukocytosis on presentation and mild hypokalemia. Both were resolved on discharge. MSSA and MRSA PCR's were both negative. Blood cultures and wound cultures were negative at 48 hours. She was treated throughout her hospitalization with Unasyn and had resolving symptoms. She was discharged with Augmentin to complete her course of antibiotics for a total of 10 days. I encouraged her to complete her course. Her ambulation status was at baseline. Home health was recommended but patient declined at this time. She was instructed to continue daily dressing changes to her lower extremity and place a dry dressing over the puncture sites. She is also to keep her lower extremities elevated as much as possible and continue Kerlix and Edson bandage at this time. She is to follow-up with her primary care physician in 1 week in the wound center in 1 week as well.. Discharge diagnoses: Complicated left lower extremity cellulitis secondary to a cat scratch Hypokalemia Left lower extremity chronic venous insufficiency/lymphedema History of right MCA stroke Hyperlipidemia Osteopenia DJD of the left knee status post arthroplasty in 2011 Ureterovaginal prolapse Obesity Hypertension Neuropathy Chronic pain Urinary incontinence ABG / Lab / Microbiology Data Result Diagrams: 03/03/21 06:04 03/03/21 06:04 Discharge Plan Admission Admit Date/Time: 03/01/21 00:51 Primary Reason for Your Visit: Left lower extremity cellulitis, cat scratch Attending Provider: Serina Ayala Primary Care Provider: Miguel Teresa Discharge Orders/Prescriptions Prescriptions: New amoxicillin-pot clavulanate [Augmentin] 875-125 mg tablet 1 tab PO BID Qty: 16 RF: 0 Continued diltiazem HCl 300 MG capsule,extended release 24hr 300 mg PO DAILY RF: 0 gabapentin 300 MG capsule 300 mg PO BID RF: 0 multivitamin [Daily Multiple] 1 EACH tablet 1 ea PO DAILY RF: 0 docusate sodium [DOK] 100 MG capsule 100 mg PO BID RF: 0 furosemide 20 MG tablet 40 mg PO DAILY RF: 0 cholecalciferol (vitamin D3) [Vitamin D3] 2,000 UNIT capsule 2,000 unit PO DAILY RF: 0 potassium chloride [Klor-Con M20] 20 MEQ tablet 10 meq PO DAILY RF: 0 oxybutynin chloride 5 MG tablet 2.5 mg PO BID RF: 0 hydrocodone-acetaminophen 1 TABLET tablet 1 tab PO Q6H PRN (Reason: Severe Pain (6-10/10)) RF: 0 amitriptyline 75 MG tablet 75 mg PO QHS RF: 0 atorvastatin 10 mg Tablet 10 mg PO DAILY RF: 0 hydrocortisone 2.5 % Cream 1 applic TOPICAL BID PRN (Reason: Hemorrhoids) RF: 0 Referrals / Follow Up: Wound Health [Outside] - Within 1 Week Miguel Teresa MD [Primary Care Provider] - 03/13/21 2:00 pm Disposition Disposition (needs filled in before D/C Order can be placed): Home, Self Care Charges/Coding Visit Charges Inpatient E&M: 62127 Disch Hosp
--- NOTE | 2021-03-03 12:16 | CASEMGMT ---
RN CM in to pt room. Pt states she feels she will be ok at home with her Hot Room Attendant aides coming to see her. She declined need for HHC. She states she has been to the wound center before and would like to follow up with them. Pt is aware that if she gets home and notices changes in her wound to notify PCP and HHC could be started if PCP agrees. Pt verbalizes understanding. Pt requests CM to call pharmacy to have meds brought to room. TC to pharmacy, spoke with [place] who states these meds are already on the way.
[2021-03-03 13:27] VITALS: BP 113/86; PULSE 84; RESP 18; TEMP 36.8; O2SAT 96
--- NOTE | 2021-03-03 14:41 | CASEMGMT ---
Social Work Note Pt discharged home today. JO ANN placed a call to pt's CM Bibiana Martel and left message informing her pt discharged home today. JO ANN faxed discharge paperwork to Bibiana Martel. Johanna Cordova SLEEP LAB TECHNOLOGIST, LINUX KERNEL DEVELOPER
--- NOTE | 2021-03-06 15:33 | CASEMGMT ---
JERRICA DIMAS Discharge Follow-Up Phone Call. Ludivina: Anai Strata: 3 Discharge Date: 03/03/21 Adm Dx: Lt leg cellulitis Call to pt to inquire about how she has been doing since being discharged from the hospital. Pt states, I've been doing really good. She states her leg looks a tiny bit better and it feels better. She states she got the atb prior to leaving [facility] and has been taking it as prescribed, stating, I haven't missed a dose. She denies having any questions about it or any of her other medications or discharge instructions. She called and made an appt @ the [facility] for 03/16. She states they informed her the provider who takes her insurance is not available for an appt until then. She is aware of the appt w/PCP, Dr Teresa, on 03/13. JERRICA DIMAS advised her to contact PCP or wound center if she notices any worsening of her leg, such as increase in temp, redness, swelling, pain. She voices understanding. She denies having any needs/concerns/questions at this time. 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 Celena BLAKELY RN, CM
== END 2021-03-03 14:04 | disposition home or self-care (01) | DRG 603 ==
LOC: ED 22:49 → MS3 03-01 01:02
PROVIDERS: Admitting Provider Internal Medicine; Emergency Provider Emergency Medicine; PCP Family Medicine; Visit Provider Internal Medicine
DX: L03.116 Cellulitis of left lower limb (principal); I69.354 Hemiplegia and hemiparesis following cerebral infarction affecting left non-dominant side; W55.03XA Scratched by cat, initial encounter; I87.2 Venous insufficiency (chronic) (peripheral); E87.6 Hypokalemia; I89.0 Lymphedema, not elsewhere classified; I10 Essential (primary) hypertension; E78.5 Hyperlipidemia, unspecified; E66.9 Obesity, unspecified; R32 Unspecified urinary incontinence; N81.4 Uterovaginal prolapse, unspecified; M17.12 Unilateral primary osteoarthritis, left knee; G89.29 Other chronic pain; G62.9 Polyneuropathy, unspecified; G43.909 Migraine, unspecified, not intractable, without status migrainosus; M85.80 Other specified disorders of bone density and structure, unspecified site; Z68.39 Body mass index [BMI] 39.0-39.9, adult
CPT/HCPCS: 36415; 80048; 80053; 83605; 83735; 84100; 85025; 87040; 87070; 87205; 87640; 97161; 97166; 97530; 97802; 99251; 99284; J7050; J7120; A4216; G0463; J0295

== ENCOUNTER 2021-10-14 12:07 | Emergency (ER) | payer MEDICARE, MEDICAID, SELFPAY ==
[2021-10-14 12:08] VITALS: BP 148/72; PULSE 87; RESP 16; TEMP 37.2; O2SAT 97; BMI 37.3
[2021-10-14 12:17] VITALS: BP 148/72; PULSE 87; RESP 16; TEMP 37.2; O2SAT 97
--- NOTE | 2021-10-14 13:45 | ED.VIS.LOWEX ---
HPI History of Present Illness Chief Complaint: Lower Extremity Injury Narrative Narrative: 71-year-old female presenting with left lower extremity swelling. She says it has been seeping for 2 days. She has a history of this. She states is mildly erythematous. She states the last time she had something similar she had a cat scratch in this time she did not have any kind of injury. She tried to follow-up with her primary care doctor and he referred her to the emergency room. She also believes she might have a urinary tract infection because she has dysuria and frequency. She not had fever or chills. She does not feel ill. [facility] Medical History Cancer Chronic pain History of stroke Lymphedema Migraines Non-smoker Stroke/cerebrovascular accident Venous insufficiency Home Medications diltiazem HCl 300 mg PO DAILY 04/09/15 [History Last Taken 02/28/21 08:00] gabapentin 300 mg PO BID 04/09/15 [History Last Taken 02/28/21 08:00] docusate sodium [DOK] 100 mg PO BID 02/09/17 [History Last Taken 02/28/21 08:00] furosemide 40 mg PO DAILY 02/09/17 [History Last Taken 02/28/21 08:00] multivitamin [Daily Multiple] 1 ea PO DAILY 02/09/17 [History Last Taken 02/28/21 08:00] cholecalciferol (vitamin D3) [Vitamin D3] 2,000 unit PO DAILY 03/19/18 [History Last Taken 02/28/21 08:00] potassium chloride [Klor-Con M20] 10 meq PO DAILY 03/19/18 [History Last Taken 02/27/21 20:00] oxybutynin chloride 2.5 mg PO BID 11/25/18 [History Last Taken 02/28/21 08:00] hydrocodone-acetaminophen 1 tab PO Q6H PRN 08/17/19 [History Last Taken 02/28/21 08:00] amitriptyline 75 mg PO QHS 05/02/20 [History Last Taken 02/27/21 20:00] atorvastatin 10 mg PO DAILY 02/28/21 [History Last Taken 02/27/21 20:00] hydrocortisone 1 applic TOPICAL BID PRN 03/01/21 [History Last Taken 02/28/21 19:30] amoxicillin-pot clavulanate [Augmentin] 1 tab PO BID #16 tab 03/03/21 [Rx Last Taken Unknown] cephalexin 500 mg PO Q6 #40 cap 10/14/21 [Rx Last Taken Unknown] Allergy/AdvReac Type Severity Reaction Status Date / Time hydrochlorothiazide Allergy increases Verified 10/14/21 12:08 calcium metronidazole [From Flagyl] Allergy Diarrhea Verified 10/14/21 12:08 triamterene AdvReac increases Verified 10/14/21 12:08 calcium Surgical History History of cholecystectomy Social History Smoking Status: Never smoker ROS ROS ED Constitutional Constitutional ED: Denies chills or fever(s) Eyes Eyes: Denies blurry vision or diplopia ENT ENT ED: Denies rhinorrhea or sore throat Cardiovascular Cardiovascular: Denies chest pain or palpitations Respiratory/Chest Respiratory/Chest: Denies cough or dyspnea Gastrointestinal Gastrointestinal: Denies abdominal pain, nausea or vomiting Genitourinary Genitourinary ED: Reports dysuria and urinary frequency Musculoskeletal Musculoskeletal: Reports other Details: Left leg pain and swelling Integumentary Reports other Details: Redness and swelling of left lower leg Neurologic Neurologic: Denies headache(s) or paresthesias Psychiatric Psychiatric: Denies anxiety or depression EXAM Physical Exam Const Vital Signs: 10/14/21 12:08 10/14/21 12:17 Temperature 98.9 F 98.9 F Temperature Source Temporal Temporal Pulse Rate 87 87 Respiratory Rate 16 16 Blood Pressure 148/72 H 148/72 H Blood Pressure Mean 97 97 Pulse Ox 97 97 Oxygen Delivery Method Room Air Room Air Positive obese General Appearance ED: NAD Nutritional Appearance: obese HEENT Reports moist mucous membranes normocephalic Eyes PERRL Resp normal respiratory effort and clear to auscultation bilaterally Cardio regular rate and regular rhythm Extremity Extremity Narrative: Chronic stasis changes of the left lower extremity. There is some weeping. Mild erythema without increased warmth. No crepitance. Neuro oriented x3 and CN's II-XII intact bilaterally Sensorium / Orientation: alert Psych mental status grossly normal MDM MDM MDM Narrative Medical decision making narrative: 70-year-old female presenting with left leg swelling. She states has had this in the past and it was secondary to infection. Previously was due to cat scratch. She had no injury this time. There is a small area of erythema on the lower tibia which does not have increased warmth but is mildly tender. It is weeping. I did want to obtain on duplex of the left lower extremity however we do not have them in the emergency room currently and they are not on-call. I will order an ultrasound of this as an outpatient. Patient also had complaint of urinary symptoms. Her urinalysis showed 500 leukocyte esterase with 5-10 white blood cells without any bacteria. This does not appear to be contaminated. Patient will be placed on Keflex to cover for cellulitis patient also cover for UTI even though her urinalysis is not completely consistent with UTI. She is symptomatic.. Patient follow-up outpatient tomorrow for ultrasound. Impression: 1. Left lower extremity cellulitis 2. UTI Lab Data Attestation: I reviewed the patient's lab results. Labs: Laboratory Results - last 24 hr 10/14/21 14:24 Urine Color Yellow Urine Clarity Sl. Cloudy Urine pH 7.0 Ur Specific [place] 1.010 Urine Protein Negative Urine Glucose (UA) Normal Urine Ketones Negative Urine Occult Blood 10 H Urine Nitrite Negative Urine Bilirubin Negative Urine Urobilinogen Normal Ur Leukocyte Esterase 500 H Urine RBC 0 SEEN Urine WBC 5-10 SEEN Ur Squamous Epith Cells 0 SEEN Urine Bacteria 0 SEEN Urine Mucus 0 SEEN Discharge Plan Triage Chief Complaint: Lower Extremity Injury ED Provider: Geovanny Zaragoza Dx/Rx/DC Orders Instructions: ED Cellulitis, ED CYSTITIS Female Adult Prescriptions: New cephalexin 500 mg capsule 500 mg PO Q6 Qty: 40 RF: 0 No Action diltiazem HCl 300 MG capsule,extended release 24hr 300 mg PO DAILY RF: 0 gabapentin 300 MG capsule 300 mg PO BID RF: 0 multivitamin [Daily Multiple] 1 EACH tablet 1 ea PO DAILY RF: 0 docusate sodium [DOK] 100 MG capsule 100 mg PO BID RF: 0 furosemide 20 MG tablet 40 mg PO DAILY RF: 0 cholecalciferol (vitamin D3) [Vitamin D3] 2,000 UNIT capsule 2,000 unit PO DAILY RF: 0 potassium chloride [Klor-Con M20] 20 MEQ tablet 10 meq PO DAILY RF: 0 oxybutynin chloride 5 MG tablet 2.5 mg PO BID RF: 0 hydrocodone-acetaminophen 1 TABLET tablet 1 tab PO Q6H PRN (Reason: Severe Pain (-04/30)) RF: 0 amitriptyline 75 MG tablet 75 mg PO QHS RF: 0 atorvastatin 10 mg Tablet 10 mg PO DAILY RF: 0 hydrocortisone 2.5 % Cream 1 applic TOPICAL BID PRN (Reason: Hemorrhoids) RF: 0 amoxicillin-pot clavulanate [Augmentin] 875-125 mg tablet 1 tab PO BID Qty: 16 RF: 0 Primary Care Provider: Miguel Teresa Referrals: Miguel Teresa MD [Primary Care Provider] - Disposition Disposition: Home, Self Care
[2021-10-14 14:31] LABS: Bacteria 0 SEEN /hpf (None Seen); Mucous, Urine 0 SEEN /hpf (<or=2+); Red Blood Cells-Urine 0 SEEN /hpf (0-5); Squamous Epithelial Cells - UA 0 SEEN /hpf (5-10)
[2021-10-14 14:33] LABS: Color, Urine Yellow (Yellow); Glucose, Dipstick Normal (Normal); Ketone-Dipstick Negative (Negative); Leukocyte Esterase-Dipstick 500 /ul (Negative); Nitrite-Dipstick Negative (Negative); Occult Blood-Urine 10 /ul (Negative); Protein-Dipstick Negative (Negative); Urine Bilirubin Dipstick Negative (Negative); Urine Clarity Sl. Cloudy (Clear); Urine Urobilinogen Normal (Normal)
[2021-10-14 14:51] LABS: White Blood Cells 5-10 SEEN /hpf (0-5)
[2021-10-14] MEDS: Cephalexin 250 MG Capsule 500 MG PO (15:56)
[2021-10-14 16:01] VITALS: BP 140/77; PULSE 91; RESP 16; O2SAT 93
== END 2021-10-14 16:03 | disposition home or self-care (01) ==
PROVIDERS: Emergency Provider Student in an Organized Health Care Education/Training Program; PCP Family Medicine; Visit Provider Student in an Organized Health Care Education/Training Program
DX: L03.116 Cellulitis of left lower limb (principal); N39.0 Urinary tract infection, site not specified; Z86.73 Personal history of transient ischemic attack (TIA), and cerebral infarction without residual deficits; G89.29 Other chronic pain
CPT/HCPCS: 81001; 99283

== ENCOUNTER 2021-10-16 13:32 | Outpatient (CLI) | payer MEDICARE, MEDICAID, SELFPAY ==
--- NOTE | 2021-10-16 13:35 | VDLE_ITS ---
Reason For Study: swelling Procedure LEFT This is a venous duplex using B-mode, color GSV is normal. flow and spectral Doppler. CFV is compressible, spontaneous, phasic, Exam performed in department. competent, and demonstrates normal The study was technically difficult. augmentation. Due to body habitus. FV is compressible, spontaneous, phasic, A preliminary report was called and/or faxed competent and demonstrates normal to Anirudh Teresa. augmentation. POP V is compressible, spontaneous, phasic, competent and demonstrates normal augmentation. T/P Trunk is compressible. PTV is compressible. LT PerV is compressible. VL/Venous Duplex US, Unilateral Interpretation Summary There is no evidence of left lower extremity deep vein thrombosis. Left great s aphenous vein appears patent and compressible segmentally. 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
== END 2021-10-16 23:59 | disposition home or self-care (01) ==
LOC: CVS 13:34
PROVIDERS: PCP Family Medicine; Referring Provider Student in an Organized Health Care Education/Training Program; Visit Provider Student in an Organized Health Care Education/Training Program
DX: M79.89 Other specified soft tissue disorders (principal)
CPT/HCPCS: 93971

== ENCOUNTER 2021-12-02 17:54 | Emergency (ER) | payer MEDICARE, MEDICAID, SELFPAY ==
[2021-12-02 17:55] VITALS: BP 133/77; PULSE 111; RESP 18; TEMP 36.5; O2SAT 97; BMI 36.1
--- NOTE | 2021-12-02 18:10 | EKG12_ITS ---
Test Reason : HEADACHE Blood Pressure : / mmHG Vent. Rate : 100 BPM Atrial Rate : 100 BPM P-R Int : 132 ms QRS Dur : 096 ms QT Int : 340 ms P-R-T Axes : 023 050 039 degrees QTc Int : 438 ms Normal sinus rhythm Normal ECG Confirmed by BERNARDO LUND, WILLIAM ([id number]), web editor EARL SILVA ([id number]) on 12/04/2021 1:38:31 PM Referred By: KANU Confirmed By:WILLIAM CHANG MD
--- NOTE | 2021-12-02 18:12 | EDS_ITS ---
HPI History of Present Illness Chief Complaint: Dizziness Informant: patient Onset/Context/Timing Onset: Days Context: Gradual Onset Timing: Waxes and wanes Narrative Narrative: Patient presents secondary to dizziness and feeling she is sleeping more than normal. She states she has had a migraine for few days but it is improving. Yesterday she was started noticing some lightheadedness and while walking became lightheaded and fell landing on her wastebasket. No injury. She felt slightly nauseated yesterday but not today. She is complaining of pain across the muscles in her upper back and across her shoulders. [facility] Medical History Cancer Chronic pain History of stroke Lymphedema Migraines Non-smoker Stroke/cerebrovascular accident Venous insufficiency Home Medications diltiazem HCl 300 mg PO DAILY 04/09/15 [History Last Taken 02/28/21 08:00] gabapentin 300 mg PO BID 04/09/15 [History Last Taken 02/28/21 08:00] docusate sodium [DOK] 100 mg PO BID 02/09/17 [History Last Taken 02/28/21 08:00] furosemide 40 mg PO DAILY 02/09/17 [History Last Taken 02/28/21 08:00] multivitamin [Daily Multiple] 1 ea PO DAILY 02/09/17 [History Last Taken 02/28/21 08:00] cholecalciferol (vitamin D3) [Vitamin D3] 2,000 unit PO DAILY 03/19/18 [History Last Taken 02/28/21 08:00] potassium chloride [Klor-Con M20] 10 meq PO DAILY 03/19/18 [History Last Taken 02/27/21 20:00] oxybutynin chloride 2.5 mg PO BID 11/25/18 [History Last Taken 02/28/21 08:00] hydrocodone-acetaminophen 2 tab PO DAILY 08/17/19 [History Last Taken 02/28/21 08:00] amitriptyline 75 mg PO QHS 05/02/20 [History Last Taken 02/27/21 20:00] atorvastatin 10 mg PO DAILY 02/28/21 [History Last Taken 02/27/21 20:00] hydrocortisone 1 applic TOPICAL BID PRN 03/01/21 [History Last Taken 08/10/21 19:30] omeprazole 40 mg PO DAILY 12/02/21 [History Last Taken Unknown] sulfamethoxazole-trimethoprim [Bactrim DS] 1 tab PO BID #6 tab 12/02/21 [Rx Last Taken Unknown] Allergy/AdvReac Type Severity Reaction Status Date / Time hydrochlorothiazide Allergy increases Verified 12/02/21 17:57 calcium metronidazole [From Flagyl] Allergy Diarrhea Verified 12/02/21 17:57 triamterene AdvReac increases Verified 12/02/21 17:57 calcium Surgical History History of cholecystectomy Social History Smoking Status: Never smoker ROS ROS ED Constitutional Constitutional ED: Denies chills or fever(s) Eyes Eyes: Denies change in vision ENT ENT ED: Denies sore throat Cardiovascular Cardiovascular: Denies chest pain Respiratory/Chest Respiratory/Chest: Denies cough or dyspnea Gastrointestinal Gastrointestinal: Reports nausea; Denies abdominal pain, diarrhea or vomiting Genitourinary Genitourinary ED: Denies dysuria Musculoskeletal Musculoskeletal: Reports back pain and neck pain Integumentary Denies rash Neurologic Neurologic: Reports headache(s); Denies weakness Allergic/Immunologic Allergic/Immunologic ED: Denies urticaria EXAM Physical Exam Const Vital Signs: 12/02/21 17:55 12/02/21 19:05 12/02/21 20:14 Temperature 97.7 F L Temperature Source Temporal Pulse Rate 111 H 106 H Respiratory Rate 18 Respiratory Effort Normal Non-Labored Respiratory Pattern Normal Blood Pressure 133/77 H 143/119 H Blood Pressure Mean 95 127 Pulse Ox 97 94 Oxygen Delivery Method Room Air Room Air Positive well nourished and well developed General Appearance ED: well developed HEENT Reports moist mucous membranes Eyes PERRL and EOMs intact bilaterally Neck Neck Narrative: Reproducible tenderness in the right low cervical paraspinal muscles. No overlying skin change. Chest Wall inspection of chest normal and palpation of chest normal Resp normal respiratory effort and clear to auscultation bilaterally Cardio regular rate and regular rhythm GI normal to inspection, nondistended, normoactive bowel sounds and non-tender Palpation: soft Extremity normal to inspection Neuro oriented x3 Sensorium / Orientation: alert Psych mental status grossly normal Skin no rashes or lesions noted MDM MDM MDM Narrative Medical decision making narrative: Patient placed on radiation monitor. EKG, lab work, urinalysis obtained. Lidoderm patch placed on her neck. 500 cc IV fluid bolus given. Lab Data Attestation: I reviewed the patient's lab results. Labs: Laboratory Results - last 24 hr 12/02/21 12/02/21 12/02/21 18:42 18:42 19:15 WBC 6.9 RBC 4.56 Hgb 13.4 Hct 43.0 MCV 94.3 MCH 29.4 MCHC 31.2 L RDW Std Deviation 45.4 H RDW Coeff of Adriana 13.2 Plt Count 176 MPV 10.4 Immature Gran % (Auto) 0.300 Neut % (Auto) 79.1 H Lymph % (Auto) 11.5 L [place] % (Auto) 8.4 Eos % (Auto) 0.4 Baso % (Auto) 0.3 Absolute Neuts (auto) 5.4 Absolute Lymphs (auto) 0.79 L Nucleated RBC % 0 Sodium 136 Potassium 3.0 L Chloride 100 Carbon Dioxide 28.0 Anion Gap 8 BUN 16 Creatinine 0.71 Estim Creat Clear Calc 35.99 Est GFR (MDRD) Af Amer 103 Est GFR (MDRD) Non-Af 85 BUN/Creatinine Ratio 22.4 H Glucose 104 Calcium 9.5 Urine Color Yellow Urine Clarity Cloudy Urine pH 6.0 Ur Specific [place] 1.010 Urine Protein 30 H Urine Glucose (UA) Normal Urine Ketones Negative Urine Occult Blood 150 H Urine Nitrite Positive H Urine Bilirubin Negative Urine Urobilinogen Normal Ur Leukocyte Esterase 500 H Urine RBC 10-25 SEEN Urine WBC >100 SEEN Ur Squamous Epith Cells 5-10 SEEN Urine Bacteria 4+ Urine Mucus 0 SEEN EKG Initial EKG: Attestation: I personally reviewed and interpreted this EKG as follows: Interpretation: Sinus Rhythm (Sinus at 100 with no acute ischemia.) Treatment and Re-Evaluation Narrative: On repeat evaluation patient resting comfortably. Test results discussed with her. She does have evidence of another UTI with 4+ bacteria, greater than 100 white cells, positive nitrates. I did review prior urine cultures and last one available is from 2019. It was pansensitive. Patient be placed on 3 days of Bactrim and urine culture is sent. Potassium is low here at 3.0. This will be replaced with 40 mEq. She is on potassium replacement at home and she is to continue this. Patient is to increase fluids at home. Return instructions provided. Patient will follow up with her primary care physician in the next 1 to 2 weeks. Discharge Plan Triage Chief Complaint: Dizziness Other Complaint: Headache ED Provider: Asia Vela Dx/Rx/DC Orders Clinical Impression: UTI (urinary tract infection), Hypokalemia, Muscle strain Instructions: ED Hypokalemia, ED CYSTITIS Female Adult Prescriptions: New sulfamethoxazole-trimethoprim [Bactrim DS] 800-160 mg tablet 1 tab PO BID Qty: 6 RF: 0 No Action diltiazem HCl 300 MG capsule,extended release 24hr 300 mg PO DAILY RF: 0 gabapentin 300 MG capsule 300 mg PO BID RF: 0 multivitamin [Daily Multiple] 1 EACH tablet 1 ea PO DAILY RF: 0 docusate sodium [DOK] 100 MG capsule 100 mg PO BID RF: 0 furosemide 20 MG tablet 40 mg PO DAILY RF: 0 cholecalciferol (vitamin D3) [Vitamin D3] 2,000 UNIT capsule 2,000 unit PO DAILY RF: 0 potassium chloride [Klor-Con M20] 20 MEQ tablet 10 meq PO DAILY RF: 0 oxybutynin chloride 5 MG tablet 2.5 mg PO BID RF: 0 hydrocodone-acetaminophen 1 TABLET tablet 2 tab PO DAILY RF: 0 amitriptyline 75 MG tablet 75 mg PO QHS RF: 0 atorvastatin 10 mg Tablet 10 mg PO DAILY RF: 0 hydrocortisone 2.5 % Cream 1 applic TOPICAL BID PRN (Reason: Hemorrhoids) RF: 0 omeprazole 40 mg Capsule,Delayed Release(Dr/Ec) 40 mg PO DAILY RF: 0 Primary Care Provider: Miguel Teresa Referrals: Miguel Teresa MD [Primary Care Provider] - 1-2 Weeks Disposition Disposition: Home, Self Care
[2021-12-02 18:50] LABS: Absolute Lymphocyte Count 0.79 X10^3/uL (0.83-4.51); Absolute Neutrophil Count 5.4 X10^3/uL (2.0-7.7); Basophil# 0.02 X10^3/uL; Basophil% 0.3 % (0-1); Eosinophil# 0.03 X10^3/uL; Eosinophils% 0.4 % (0-5); Hemoglobin 13.4 g/dL (12.0-15.0); Lymphocyte # 0.79 X10^3/ul (0.83-4.51); Lymphocyte % 11.5 % (19-41); Mean Corp Hgb Conc 31.2 g/dL (32-36); Mean Corpuscular Hgb 29.4 pg (27.0-32.0); Mean Corpuscular Volume 94.3 fL (81-99); Mean Platelet Vol. 10.4 fl (6.2-12.0); Monocyte# 0.58 X10^3/uL; Monocyte% 8.4 % (0-10); NRBC Flagged by Analyzer 0 % (0-5); Neutrophil # 5.44 X10^3/uL (2.7-7.7); Neutrophil % 79.1 % (47-70); Platelet Count 176 K/mm3 (150-450); RBC Distribution Width CV 13.2 % (11.6-14.6); RBC Distribution Width SD 45.4 fl (35.1-43.9); Red Blood Count 4.56 M/mm3 (4.2-5.4); White Blood Count 6.9 K/mm3 (4.4-11.0)
[2021-12-02] MEDS: Lidocaine 5% Patch 1 PATCH TOPICAL (18:58)
[2021-12-02 19:11] LABS: Anion Gap 8 (5-15); BUN 16 mg/dL (7-18); BUN/Creat Ratio 22.4 RATIO (10-20); Calcium,Total 9.5 mg/dL (8.5-10.1); Chloride 100 mmol/L (98-107); Creatinine, Serum 0.71 mg/dL (0.55-1.02); EST Glomerular Filtration Rate 85 mL/min (>60); Est Glom Filt Rate - Afr Amer 103 mL/min (>60); Estimated Creatinine Clearance 35.99 ml/min; Glucose 104 mg/dL (74-106); Sodium Level 136 mmol/L (136-145)
[2021-12-02 19:21] LABS: Mucous, Urine 0 SEEN /hpf (<or=2+)
[2021-12-02 19:34] LABS: Color, Urine Yellow (Yellow); Glucose, Dipstick Normal (Normal); Ketone-Dipstick Negative (Negative); Leukocyte Esterase-Dipstick 500 /ul (Negative); Nitrite-Dipstick Positive (Negative); Occult Blood-Urine 150 /ul (Negative); Protein-Dipstick 30 mg/dl (Negative); Urine Bilirubin Dipstick Negative (Negative); Urine Clarity Cloudy (Clear); Urine Urobilinogen Normal (Normal)
[2021-12-02 19:42] LABS: Bacteria 4+ /hpf (None Seen); Red Blood Cells-Urine 10-25 SEEN /hpf (0-5); Squamous Epithelial Cells - UA 5-10 SEEN /hpf (5-10); White Blood Cells >100 SEEN /hpf (0-5)
[2021-12-02] MEDS: Smz/Tmp Ds Tablet 1 TABLET PO (20:13)
[2021-12-02] MEDS: Potassium Chloride Oral Tablet 20 MEQ 40 MEQ PO (20:13)
[2021-12-02 20:14] VITALS: BP 143/119; PULSE 106; O2SAT 94
[2021-12-02 20:32] VITALS: RESP 16
== END 2021-12-02 20:33 | disposition home or self-care (01) ==
PROVIDERS: Emergency Provider Emergency Medicine; PCP Family Medicine; Visit Provider Emergency Medicine
DX: N39.0 Urinary tract infection, site not specified (principal); E87.6 Hypokalemia; R42 Dizziness and giddiness; Z90.49 Acquired absence of other specified parts of digestive tract; Z86.73 Personal history of transient ischemic attack (TIA), and cerebral infarction without residual deficits
CPT/HCPCS: 80048; 81001; 85025; 87086; 87088; 87186; 93005; 96360; 99284; J7030; A4216

== ENCOUNTER → 2022-01-25 | Outpatient (CLI) | payer MEDICARE, MEDICAID, SELFPAY ==
[2022-01-25 17:50] LABS: Amphetamine Urine VISTA NEGATIVE (<1000 ng/mL); Barbiturate Urine VISTA NEGATIVE (< 200 ng/mL); Benzodiazepine Urine VISTA NEGATIVE (< 200 ng/mL); Cocaine Urine VISTA NEGATIVE (< 300 ng/mL); Ecstacy Urine VISTA NEGATIVE (< 500 ng/mL); Methadone Urine VISTA NEGATIVE (< 300 ng/mL); PCP Urine VISTA NEGATIVE (< 25 ng/mL); THC Urine VISTA NEGATIVE (< 50 ng/mL); Vista UDS pH Range 6
== END | disposition home or self-care (01) ==
LOC: LAB 13:26
PROVIDERS: PCP Family Medicine; Referring Provider Anesthesiology Pain Medicine; Visit Provider Anesthesiology Pain Medicine
DX: F11.20 Opioid dependence, uncomplicated (principal)
CPT/HCPCS: 80307

== ENCOUNTER → 2022-08-14 | Outpatient (CLI) | payer MEDICARE, MEDICAID, SELFPAY ==
--- NOTE | 2022-08-14 10:24 | VDLE_ITS ---
Reason For Study: swelling Procedure LEFT This is a venous duplex using B-mode, color GSV is normal. flow and spectral Doppler. CFV is compressible, spontaneous, phasic, Exam performed in department. competent, and demonstrates normal The exam was abbreviated due to the COVID 19 augmentation. protocol. FV is compressible, spontaneous, phasic, The exam was diagnostic. competent and demonstrates normal A preliminary report was called and/or faxed augmentation. to Dr. Teresa. POP V is compressible, spontaneous, phasic, competent and demonstrates normal augmentation. T/P Trunk is compressible. PTV is compressible. LT PerV is compressible. VL/Venous Duplex US, Unilateral Interpretation Summary There is no evidence of left lower extremity deep vein thrombosis. Left great s aphenous vein appears patent and compressible segmentally. Partially harvested left great saphenous v ein Abbreviated COVID-19 protocol utilized Ordering Physician: Miguel Teresa Performed By: Alfa Maki RVT
== END | disposition home or self-care (01) ==
LOC: CVS 10:22
PROVIDERS: PCP Family Medicine; Referring Provider Family Medicine; Visit Provider Family Medicine
DX: M79.89 Other specified soft tissue disorders (principal)
CPT/HCPCS: 93971

== ENCOUNTER 2022-12-13 11:00 | Outpatient (RCR) | payer MEDICARE, MEDICAID, SELFPAY ==
[2022-11-29 10:25] VITALS: BMI 37.0
--- NOTE | 2022-11-29 13:41 | HP.PCM_ITS ---
History of Present Illness Date of Service: 11/29/22 Chief Complaint: Nonhealing left leg wound History of Wound: Ms Frederick is a 72 with past medical history as documented above who presents to the wound center due to nonhealing left leg wound. Her phone fell on her left leg resulting in an injury. Seen by her primary care physician and was advised to put bacitracin on which she been doing without any significant improvement. No history of diabetes but she does have lower extremity swelling. She feels well, no chills, fever, nausea or vomiting. [facility] Medical History (Updated 11/29/22 @ 13:[address] Karen Fontanez MD) Cancer Chronic pain Debility History of stroke Lymphedema Migraines Non-smoker Stroke/cerebrovascular accident Venous insufficiency Venous insufficiency of both lower extremities Wound of left lower extremity Home Medications diltiazem HCl 300 mg capsule,extended release 24 hr 300 mg PO DAILY prevents migraines 04/09/15 [History Last Taken 02/28/21 08:00] gabapentin 300 mg capsule 300 mg PO BID nerve pain 04/09/15 [History Last Taken 02/28/21 08:00] docusate sodium 100 mg capsule (DOK) 100 mg PO BID constipation 02/09/17 [History Last Taken 02/28/21 08:00] furosemide 20 mg tablet 40 mg PO DAILY water retention 02/09/17 [History Last Taken 02/28/21 08:00] multivitamin (Daily Multiple tablet) 1 ea PO DAILY supplement 02/09/17 [History Last Taken 02/28/21 08:00] cholecalciferol (vitamin D3) 50 mcg (2,000 unit) capsule (Vitamin D3) 2,000 unit PO DAILY supplement 03/19/18 [History Last Taken 02/28/21 08:00] potassium chloride 20 mEq tablet,extended release(part/cryst) (Klor-Con M) 10 meq PO DAILY supplement 03/19/18 [History Last Taken 02/27/21 20:00] oxybutynin chloride 5 mg tablet 2.5 mg PO BID urinary issues 11/25/18 [History Last Taken 02/28/21 08:00] hydrocodone-acetaminophen 5-325mg 5mg-325mg 2 tab PO DAILY 08/17/19 [History Last Taken 02/28/21 08:00] amitriptyline 75 mg tablet 75 mg PO QHS migraine prevention 05/02/20 [History Last Taken 02/27/21 20:00] atorvastatin 10 mg tablet 10 mg PO DAILY cholesterol 02/28/21 [History Last Taken 02/27/21 20:00] hydrocortisone 2.5 % topical cream 1 applic topical BID PRN Hemorrhoids 03/01/21 [History Last Taken 02/28/21 19:30] omeprazole 40 mg capsule,delayed release 40 mg PO DAILY 12/02/21 [History Last Taken Unknown] Allergy/AdvReac Type Severity Reaction Status Date / Time hydrochlorothiazide Allergy increases Verified 12/02/21 17:57 calcium metronidazole [From Flagyl] Allergy Diarrhea Verified 12/02/21 17:57 triamterene AdvReac increases Verified 12/02/21 17:57 calcium Surgical History History of cholecystectomy Social History Smoking Status: Never smoker ROS Constitutional Constitutional: Denies excessive sweating, fatigue, fever(s), frequent falls, lethargy or night sweats Eyes Eyes: Denies change in eye color, decreased night vision, discharge from eye(s), discongugate gaze, double vision or excessive blinking ENT HEENT: Denies dysphagia, ear discharge, ear pain, halitosis, headache(s), hearing loss, hoarseness or mouth pain Cardiovascular Cardiovascular: Denies bluish discoloration of hand/feet, chest pain, clubbing, cold extremities, cyanosis, diaphoresis or dizziness Respiratory/Chest Respiratory/Chest: Denies difficulty clearing secretions, excessive phlegm production, hemoptysis, hoarseness, inability to speak, mouth breathing or nail bed cyanosis Gastrointestinal Gastrointestinal: Denies chewing difficulty, constipation, cramping, diarrhea, dysphagia, early satiety or fecal incontinence Genitourinary Genitourinary: Denies movement, flank pain, hematuria, itching or urinary urgency Musculoskeletal Musculoskeletal: Denies joint swelling, muscle weakness, myalgias, numbness, radiating pain into limb or tremors Integumentary Integumentary: Denies change in pigmentation, changing lesions, erythema, furuncle, hirsutism, jaundice, nail changes, new lesions or photosensitivity Neurologic Neurologic: Denies confusion, convulsions, frequent falls, lack of coordination, loss of vision, memory loss, numbness or other visual disturbances Psychiatric Psychiatric: Denies behavioral changes, difficulty concentrating, hallucinati ons, homicidal ideation, irritability, memory loss or panic attacks Endocrine Endocrinology: Denies deepening of the voice, excessive sweating, fatigue, heat intolerance, increase in ring/shoe/hat size or palpitations Hematologic/Lymphatic Hematologic/Lymphatic: Denies lymphadenopathy Allergic/Immunologic Allergic/Immunologic: Denies itchy eyes, lip swelling, throat swelling, tongue swelling, hives, urticaria or wheezing Vital Signs Vital Signs Vital Signs: 11/29/22 10:25 Temperature Source Temporal Blood Pressure Source Monitor Blood Pressure Position Sitting Blood Pressure Location Left Arm Weight Weight: 190 lb Body Mass Index (BMI) 37.0 Physical Exam Const alert, oriented x3 and no apparent distress General Appearance: cooperative, comfortable and well kempt HEENT normocephalic, head/scalp atraumatic and hearing grossly normal bilaterally Eyes EOMs intact bilaterally General Eye: normal appearance of both eyes Neck full ROM and supple General: normal visual inspection Resp normal respiratory effort and normal air movement Effort and Inspection: able to speak in complete sentences Cardio regular rate, regular rhythm, S1 normal heart sound and S2 normal heart sound GI soft to palpation and non-tender Extremity General Extremity: edema Skin Wounds: wounds noted Neuro oriented x3, CN's II-XII intact bilaterally, moves all extremities and no focal motor deficits Psych mental status grossly normal, thought process normal, cooperative and affect normal Debridement Note Debridement Note Post-Debridement Measurements and Additional Note: Post-Debridement Measurements/Treatment - Nurse 1 - General Ulcer Assessment Start: 11/29/22 10:25 Freq: Status: Active Protocol: ABE.HARI Activity Type Activity Date Activity User E-sign Co-sign Detail Recorded Client Recorded Date Recorded By Document 11/29/22 10:25 ROGELIO [id number] 11/29/22 10:46 RB 11/29/22 10:25 - Today's Visit Information Type of service Initial Visit Arrival Mode Ambulatory,Cane Transfer Assistance None Patient Identification Verified (Name & Yes ) Patient Requires Transmission-Based No Precautions Height and Weight Height 5 ft Weight 190 lb Weight in Pounds 190.0 lbs Body Mass Index (BMI) 37.0 BMI Classification Obese BSA - Nilda 1.83 Vital Signs Temperature Source Temporal Pulse Location Monitor Respiratory rate source Observation Source Monitor Position Sitting Blood Pressure Location Left Arm History Since Last Visit- (Skip if this is Patient's initial visit) Have you changed medications since your No last visit? Any new allergies or adverse reactions No Had a fall/change in ADL's that may No increase risk of falls Signs or symptoms of abuse and/or No neglect since last visit Have you been in the hospital since your No last visit? Has dressing in place as prescribed Yes Has compression in place as prescribed No Has offloadiing in place as prescribed No Experienced any changes in pain level or No management Pain Scale: 0-10 Numeric Is Patient Pain Free? Yes Lower Extremity Assessment/ Foot Assessment/ Toe Nail Assessment Right -Posterior Tibial Palpable Yes -Dorsalis Pedis Palpable Yes -Extremity Color Normal -Hair Growth on Legs Yes -Hair Growth on Toes No -Temperature of Extremity Warm -Capillary Refill Greater than 3 Seconds -Dependent Rubor No -Lipodermatosclerosis No -Other Deformity No -Prior Foot Ulcer No -Charcot Joint No -Prior Amputation No -Thick No -Discolored No -Deformed No -Improper Length & Hygeine Yes Left -Posterior Tibial Palpable Yes -Dorsalis Pedis Palpable Yes -Extremity Color Hyperpigmented -Hair Growth on Legs Yes -Hair Growth on Toes No -Temperature of Extremity Cool -Capillary Refill Greater than 3 Seconds -Dependent Rubor No -Blanched when Elevated No -Lipodermatosclerosis No -Other Deformity No -Prior Foot Ulcer No -Charcot Joint No -Prior Amputation No -Thick No -Discolored No -Deformed No -Improper Length & Hygeine Yes Neuropathy Assessment Feet - Top Side and Bottom <Entered> (a) Communication Assessment Preferred language Kitt[place] Draw Press Operator Required No Able to Read Yes Able to Write Yes Communication Tools None Caregiver Communication Skills No Impairment Impairment Right Hearing Abillity Normal Left Hearing Abillity Normal Visual Assistive Devices Glasses Teaching Assessment Preferences Verbal,Written, Demonstration Barriers to Learning None Readiness To Learn Good Willingness to Engage in Self Management Med Activies Readiness to Engage in Self Management Med Activities Anxiety Level Calm Cooperation Cooperative Perception Coherent Interest in Health Problem Asks Questions Education Importance Acknowledges Need Does Patient Smoke tobacco or other No substances Smoking Status Never smoker Is Patient Diabetic No Functional Assessment Recent Decline in Ability to Perform Denies Any Declines 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 LLE -Combined with other wound No -Current Size (cm) - Length 1.5 -Current Size (cm) - Width 1 -Current Size (cm) - Depth 0.1 -Total Square Cm 1.5 -Photo Taken Yes -Tunneling No -Undermining/Tunneling No -Circular Undermining No -Exudate Amt Small -Exudate Type Serosanguineous -Wound Margin Distinct, Outline Attached -Granulation Amt Small (1-33%) -Granulation Quality [place] -Slough/Fibrin Yes -Necrosis Amt Large (67-100%) -Necrotic Tissue Type Eschar -Structure Exposed N/A -Texture ([place]-wound Skin Appearance) Assessed, Localized Edema -Moisture ([place]-wound Skin Appearance) Assessed -Color ([place]-wound Skin Appearance) Erythema -Temperature ([place]-wound Skin No Abnormality Appearance) (Pt Warm) -Tenderness on Palpation ([place]-wound No Skin Appearance) -Ulcer Cleansing Wound Cleanser -Foul Odor after Cleansing No -Anesthetic Used 5% Lidocaine Gel Lower Limb Edema Present Yes Right Calf (cm) 49 Right Ankle (cm) 29 Left Calf (cm) 47.5 Left Ankle (cm) 29 WC - Nurse 2 - General Ulcer CM Notes Start: 11/29/22 10:25 Freq: Status: Active Protocol: Activity Type Activity Date Activity User E-sign Co-sign Detail Recorded Client Recorded Date Recorded By Document 11/29/22 11:18 MW [id number] 11/29/22 11:22 MW 11/29/22 11:18 Wound Center Nurse 2 2. LLE -Time 11:19 -Correct Patient Yes -Correct Side, Site, Position Yes -Correct Procedure Yes -Procedure Performed Yes -Type of Procedure Debridement -Clinical Debridement Subcutaneous -Tissue Removed Subcutaneous -Post Debridement (cm) - Length 2.0 -Post Debridement (cm) - Width 1.4 -Post Debridement (cm) - Depth 0.1 -Total Square (Post) (cm) 2.80 -Area of Debridement (cm) - Length 2.0 -Area of Debridement (cm) - Width 1.4 -Total Square (Area) (cm) 2.80 -Tunneling No -Undermining/Tunneling No -Circular Undermining No -Wound/Ulcer Outcome Not Healed -Ulcer Cleansing Rinsed/ Irrigated with Saline -Foul Odor after Cleansing No -Bioengineered Tissue No -Bleeding Controlled with Pressure -Treatment Response Procedure Tolerated Well -Offloading No -Debridement - Subq, 1st 20sq cm Yes Pain Scale: 0-10 Numeric Is Patient Pain Free? Yes - Nurse 3 - General Ulcer D/C NN Start: 11/29/22 10:25 Freq: Status: Active Protocol: Activity Type Activity Date Activity User E-sign Co-sign Detail Recorded Client Recorded Date Recorded By Document 11/29/22 11:45 DL [id number] 11/29/22 11:53 DL 11/29/22 11:45 Wound Care Center Nurse 3 2. LLE -Ulcer Cleansing Rinsed/ Irrigated with Saline -Foul Odor after Cleansing No -Primary Dressing Applied NonAdherent Contact Layer, Promogran -Primary Dressing Covered/Secured with Dry Gauze -Promogran 1 Left -Multi-Layered Wrap Application Multi-Layer Comp - Left ($) Treatment Response Procedure Tolerated Well Pain Scale: 0-10 Numeric Is Patient Pain Free? Yes - Visit Discharge Discharge Condition Stable Ambulatory Status Ambulatory Charges/Coding Visit Charges Office Visits / Consults: 64077 OV L3 Est Procedures Integumentary 111xxx-113xx: [id number] Astrid subq tissue 20 sq cm/< Assessment/Plan Assessment/Plan (1) Wound of left lower extremity: CODE(S): S81.802A - Unspecified open wound, left lower leg, initial encounter PLAN: Traumatic, penetrating. (2) Venous insufficiency of both lower extremities: CODE(S): I87.2 - Venous insufficiency (chronic) (peripheral) (3) Debility: CODE(S): R53.81 - Other malaise PLAN: Plan Debridement done as documented above, procedure was well-tolerated. No clinical signs of infection. Significant lower extremity edema. Promogran, cover with foam/superabsorbent dressing. 3M wrap for edema management. She was advised to come in on Saturday for nurse visit/change. Leg elevation, exercise as tolerated and increase protein intake discussed, she voiced understanding. Follow-up with me on or sooner if needed. Her questions were answered and she was advised to call with any further questions or concerns. This note was generated with [employer] dictation software. It may contain incorrect words, spelling, and punctuation that were not noted in checking the note before signing.
[2022-12-06 11:04] VITALS: BP 164/77; PULSE 85; RESP 16; TEMP 36.2; BMI 37.0
--- NOTE | 2022-12-06 12:25 | PN.PCM_ITS ---
History of Present Illness Date of Service: 12/06/22 Chief Complaint: Nonhealing left leg wound History of Wound: Ms Frederick is a 72 with past medical history as documented above who presents to the wound center due to nonhealing left leg wound. Her phone fell on her left leg resulting in an injury. Seen by her primary care physician and was advised to put bacitracin on which she been doing without any significant improvement. No history of diabetes but she does have lower extremity swelling. She feels well, no chills, fever, nausea or vomiting. Progress of Wound: No acute concerns. Improving. Tolerating 3M wrap without any concerns. Objective Data Objective Data Vital Signs: Vital Signs Temp Pulse Resp BP O2 Del Method 97.2 F L 85 16 164/77 H Room Air 12/06/22 11:04 12/06/22 11:04 12/06/22 11:04 12/06/22 11:04 12/06/22 11:04 Oxygen Delivery Method Room Air Weight: 190 lb Body Mass Index (BMI) 37.0 Physical Exam Const alert, oriented x3 and no apparent distress General Appearance: cooperative, comfortable and well kempt HEENT normocephalic, head/scalp atraumatic and hearing grossly normal bilaterally Eyes EOMs intact bilaterally General Eye: normal appearance of both eyes Neck full ROM and supple General: normal visual inspection Resp normal respiratory effort and normal air movement Effort and Inspection: able to speak in complete sentences Extremity General Extremity: edema Skin Wounds: wounds noted Neuro oriented x3, CN's II-XII intact bilaterally, moves all extremities and no focal motor deficits Psych mental status grossly normal, thought process normal, cooperative and affect normal Debridement Note Debridement Note Wound debrided: Left Lower Extremity Type of Debridement: Excisional debridement Anesthesia Used: 4% Lidocaine Solution Depth: Down to and including healthy tissue and in the subcutaneous layer Percentage of wound debrided: 100 Instrument Used: 3mm curette Tissue Removed: Slough and devitalized tissue Severity: Fat Layer Exposed Amount of bleeding with debridement: Mild Bleeding Controlled with: Pressure Patient tolerated procedure: Patient tolerated procedure well Post-Debridement Measurements and Additional Note: Post-Debridement Measurements/Treatment ABE - Nurse 1 - General Ulcer Assessment Start: 11/29/22 10:25 Freq: Status: Active Protocol: GERONIMO Activity Type Activity Date Activity User E-sign Co-sign Detail Recorded Client Recorded Date Recorded By Document 11/29/22 10:25 RB [id number] 11/29/22 10:46 RB Document 12/06/22 11:04 BM [id number] 12/06/22 11:15 BMF 11/29/22 12/06/22 10:25 11:04 WC - Today's Visit Information Type of service Initial Visit Follow-up Visit (Physician/SOFTWARE QUALITY SPECIALIST ) Arrival Mode Ambulatory,Cane Ambulatory,Cane Transfer Assistance None None Patient Identification Verified (Name & Yes Yes ) Patient Requires Transmission-Based No No Precautions Height and Weight Height 5 ft Weight 190 lb Weight in Pounds 190.0 lbs Body Mass Index (BMI) 37.0 37.0 BMI Classification Obese Obese BSA - Nilda 1.83 Vital Signs Temperature (97.8 F-99.1 F) 97.2 F L Temperature Source Temporal Temporal Pulse Rate (60-100) 85 Pulse Location Monitor Monitor Respiratory Rate (12-18) 16 Respiratory rate source Observation Observation Oxygen Delivery Method Room Air Blood Pressure (90/60-120/80) 164/77 H Blood Pressure Mean (mm Hg) 106 Source Monitor Monitor Position Sitting Sitting Blood Pressure Location Left Arm Right Arm History Since Last Visit- (Skip if this is Patient's initial visit) Have you changed medications since your No No last visit? Any new allergies or adverse reactions No No Had a fall/change in ADL's that may No Yes increase risk of falls Signs or symptoms of abuse and/or No No neglect since last visit Have you been in the hospital since your No No last visit? Has dressing in place as prescribed Yes Yes Has compression in place as prescribed No Yes Has offloadiing in place as prescribed No N/A Experienced any changes in pain level or No No management Left Footwear Regular Shoe Right Footwear Regular Shoe Pain Scale: 0-10 Numeric Is Patient Pain Free? Yes Yes Lower Extremity Assessment/ Foot Assessment/ Toe Nail Assessment Right -Posterior Tibial Palpable Yes -Dorsalis Pedis Palpable Yes -Extremity Color Normal -Hair Growth on Legs Yes -Hair Growth on Toes No -Temperature of Extremity Warm -Capillary Refill Greater than 3 Seconds -Dependent Rubor No -Lipodermatosclerosis No -Other Deformity No -Prior Foot Ulcer No -Charcot Joint No -Prior Amputation No -Thick No -Discolored No -Deformed No -Improper Length & Hygeine Yes Left -Posterior Tibial Palpable Yes -Dorsalis Pedis Palpable Yes -Extremity Color Hyperpigmented -Hair Growth on Legs Yes -Hair Growth on Toes No -Temperature of Extremity Cool -Capillary Refill Greater than 3 Seconds -Dependent Rubor No -Blanched when Elevated No -Lipodermatosclerosis No -Other Deformity No -Prior Foot Ulcer No -Charcot Joint No -Prior Amputation No -Thick No -Discolored No -Deformed No -Improper Length & Hygeine Yes Neuropathy Assessment Feet - Top Side and Bottom <Entered> (a) Communication Assessment Preferred language [place] 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 Able to Read Yes Able to Write Yes Communication Tools None Caregiver Communication Skills No Impairment Impairment Right Hearing Abillity Normal Left Hearing Abillity Normal Visual Assistive Devices Glasses Teaching Assessment Preferences Verbal,Written, Demonstration Barriers to Learning None Readiness To Learn Good Willingness to Engage in Self Management Med Activies Readiness to Engage in Self Management Med Activities Anxiety Level Calm Cooperation Cooperative Perception Coherent Interest in Health Problem Asks Questions Education Importance Acknowledges Need Does Patient Smoke tobacco or other No substances Smoking Status Never smoker Is Patient Diabetic No Functional Assessment Recent Decline in Ability to Perform Denies Any Declines Culture/Samaritan/Trash Man Cultural/Samaritan Needs that may affect No Treatment Plan Would you allow our hospital helper/driver to No meet you for the purpose of spiritual/ emotional support? Trash Man to contact place of mandaeism No Teaching: Wound Center *Welcome to the Wound Center -Person Taught Patient,Family -Teaching Method Discussion -Response to teaching Verbalize understanding (a) 1 - + throughout WC - Nurse 1 - General Ulcer Measurement Start: 11/29/22 10:25 Freq: Status: Active Protocol: Activity Type Activity Date Activity User E-sign Co-sign Detail Recorded Client Recorded Date Recorded By Document 11/29/22 10:25 RB [id number] 11/29/22 10:46 RB Document 12/06/22 11:04 [facility] [id number] 12/06/22 11:15 BM 11/29/22 12/06/22 10:25 11:04 Wound Center Nurse 1 2. LLE -Combined with other wound No No -Current Size (cm) - Length 1.5 1.8 -Current Size (cm) - Width 1 1.6 -Current Size (cm) - Depth 0.1 0.1 -Total Square Cm 1.5 2.88 -Date of Last Picture (Recall this 12/06/22 field) -Photo Taken Yes Yes -Epithelialization Small 1-33% -Tunneling No No -Undermining/Tunneling No No -Circular Undermining No No -Exudate Amt Small Small -Exudate Type Serosanguineous Serosanguineous -Wound Margin Distinct, Distinct, Outline Outline Attached Attached -Granulation Amt Small (1-33%) Large (67-100%) -Granulation Quality Nye Red -Slough/Fibrin Yes Yes -Necrosis Amt Large (67-100%) Small (1-33%) -Necrotic Tissue Type Eschar Adherent Slough -Structure Exposed N/A -Texture ([place]-wound Skin Appearance) Assessed, Assessed, Localized Edema Scarring -Moisture ([place]-wound Skin Appearance) Assessed Assessed -Color ([place]-wound Skin Appearance) Erythema Assessed, Hemosiderin Staining -Temperature ([place]-wound Skin No Abnormality No Abnormality Appearance) (Pt Warm) (Pt Warm) -Tenderness on Palpation ([place]-wound No Yes Skin Appearance) -Ulcer Cleansing Wound Cleanser Soap and Water -Foul Odor after Cleansing No No -Anesthetic Used 5% Lidocaine 5% Lidocaine Gel Gel Lower Limb Edema Present Yes Yes Right Calf (cm) 49 41.2 Right Ankle (cm) 29 26.9 Left Calf (cm) 47.5 Left Ankle (cm) 29 WC - Nurse 2 - General Ulcer CM Notes Start: 11/29/22 10:25 Freq: Status: Active Protocol: Activity Type Activity Date Activity User E-sign Co-sign Detail Recorded Client Recorded Date Recorded By Document 11/29/22 11:18 [id number] 11/29/22 11:22 MW Document 12/06/22 11:41 [id number] 12/06/22 11:44 FRANCIS 11/29/22 12/06/22 11:18 11:41 Wound Center Nurse 2 2. LLE -Time 11:19 11:42 -Correct Patient Yes Yes -Correct Side, Site, Position Yes Yes -Correct Procedure Yes Yes -Procedure Performed Yes Yes -Type of Procedure Debridement Debridement -Clinical Debridement Subcutaneous Subcutaneous -Tissue Removed Subcutaneous Subcutaneous -Post Debridement (cm) - Length 2.0 1.8 -Post Debridement (cm) - Width 1.4 0.9 -Post Debridement (cm) - Depth 0.1 0.1 -Total Square (Post) (cm) 2.80 1.62 -Area of Debridement (cm) - Length 2.0 1.8 -Area of Debridement (cm) - Width 1.4 0.9 -Total Square (Area) (cm) 2.80 1.62 -Tunneling No No -Undermining/Tunneling No No -Circular Undermining No No -Wound/Ulcer Outcome Not Healed Not Healed -Ulcer Cleansing Rinsed/ Rinsed/ Irrigated with Irrigated with Saline Saline -Foul Odor after Cleansing No No -Bioengineered Tissue No No -Bleeding Controlled with Pressure Pressure -Treatment Response Procedure Procedure Tolerated Well Tolerated Well -Offloading No No -Debridement - Subq, 1st 20sq cm Yes Yes Pain Scale: 0-10 Numeric Is Patient Pain Free? Yes Yes - Nurse 3 - General Ulcer D/C NN Start: 11/29/22 10:25 Freq: Status: Active Protocol: Activity Type Activity Date Activity User E-sign Co-sign Detail Recorded Client Recorded Date Recorded By Document 11/29/22 11:45 DL [id number] 11/29/22 11:53 DL Document 12/03/22 07:11 PL [id number] 12/04/22 07:12 PL Document 12/06/22 11:55 DL [id number] 12/06/22 11:56 DL 11/29/22 12/03/22 12/06/22 11:45 07:11 11:55 Wound Care Center Nurse 3 2. LLE -Ulcer Cleansing Rinsed/ Soap and Water Wound Cleanser Irrigated with Saline -Foul Odor after Cleansing No No No -Primary Dressing Applied NonAdherent Promogran Promogran Contact Layer, Michelle Matter Promogran -Primary Dressing Covered/Secured with Dry Gauze Dry Gauze -Promogran 1 1 -Promogran Michelle Matter 1 Left -Multi-Layered Wrap Application Multi-Layer Multi-Layer Multi-Layer Comp - Left ($) Comp - Left ($) Comp - Left ($) Treatment Response Procedure Procedure Tolerated Well Tolerated Well Pain Scale: 0-10 Numeric Is Patient Pain Free? Yes Yes Yes - Visit Discharge Discharge Condition Stable Stable Ambulatory Status Ambulatory Ambulatory,Cane Transportation Private Auto Facility Type Conventions Assistant Care Facility Orders Sent Yes Assessment/Plan Assessment/Plan (1) Wound of left lower extremity: CODE(S): S81.802A - Unspecified open wound, left lower leg, initial encounter PLAN: Traumatic, penetrating. (2) Venous insufficiency of both lower extremities: CODE(S): I87.2 - Venous insufficiency (chronic) (peripheral) (3) Debility: CODE(S): R53.81 - Other malaise PLAN: Plan Debridement done as documented above, procedure was well-tolerated. Improving, no new concerns at this time. Continue Promogran, cover with foam/superabsorbent dressing. 3M wrap for edema management. Leave on for 1 week. Leg elevation, exercise as tolerated and increased protein intake discussed, she voiced understanding. Follow-up with me on or sooner if needed. Her questions were answered and she was advised to call with any further questions or concerns. This note was generated with [employer] dictation software. It may contain incorrect words, spelling, and punctuation that were not noted in checking the note before signing.
[2022-12-10 13:31] VITALS: BP 135/73; PULSE 98; RESP 20; TEMP 36.3; BMI 37.0
[2022-12-10 14:48] VITALS: BP 150/55; PULSE 94; RESP 18; TEMP 36.3; BMI 37.0
[2022-12-13 11:19] VITALS: BP 139/63; PULSE 89; RESP 16; TEMP 36.1; BMI 37.0
--- NOTE | 2022-12-13 12:40 | PN.PCM_ITS ---
History of Present Illness Date of Service: 12/13/22 Chief Complaint: Nonhealing left leg wound History of Wound: Ms Frederick is a 72 with past medical history as documented above who presents to the wound center due to nonhealing left leg wound. Her phone fell on her left leg resulting in an injury. Seen by her primary care physician and was advised to put bacitracin on which she been doing without any significant improvement. No history of diabetes but she does have lower extremity swelling. She feels well, no chills, fever, nausea or vomiting. Progress of Wound: No acute concerns. Improving. Tolerating 3M wrap without any concerns, wound is improving. Objective Data Objective Data Vital Signs: Vital Signs Temp Pulse Resp BP O2 Del Method 97 F L 89 16 139/63 H Room Air 12/13/22 11:19 12/13/22 11:19 12/13/22 11:19 12/13/22 11:19 12/13/22 11:19 Oxygen Delivery Method Room Air Weight: 190 lb Body Mass Index (BMI) 37.0 Charges/Coding Procedures Integumentary 111xxx-113xx: [id number] Astrid subq tissue 20 sq cm/< Physical Exam Const alert, oriented x3 and no apparent distress General Appearance: cooperative, comfortable and well kempt HEENT normocephalic, head/scalp atraumatic and hearing grossly normal bilaterally Eyes EOMs intact bilaterally General Eye: normal appearance of both eyes Neck full ROM and supple General: normal visual inspection Resp normal respiratory effort Effort and Inspection: able to speak in complete sentences Extremity General Extremity: edema Skin Wounds: wounds noted Neuro oriented x3, CN's II-XII intact bilaterally, moves all extremities and no focal motor deficits Psych mental status grossly normal, thought process normal, cooperative and affect normal Debridement Note Debridement Note Post-Debridement Measurements and Additional Note: Post-Debridement Measurements/Treatment WC - Nurse 1 - General Ulcer Assessment Start: 11/29/22 10:25 Freq: Status: Active Protocol: GERONIMO Activity Type Activity Date Activity User E-sign Co-sign Detail Recorded Client Recorded Date Recorded By Document 11/29/22 10:25 RB [id number] 11/29/22 10:46 RB Document 12/06/22 11:04 BMF [id number] 12/06/22 11:15 BMF Document 12/10/22 13:31 DL [id number] 12/10/22 14:28 DL Document 12/10/22 14:48 DL [id number] 12/10/22 14:51 DL Document 12/13/22 11:19 DL [id number] 12/13/22 11:24 DL 11/29/22 12/06/22 12/10/22 10:25 11:04 13:31 WC - Today's Visit Information Type of service Initial Visit Follow-up Visit Follow-up Visit (Physician/FIRE PREVENTION FORESTER (Physician/FIRE PREVENTION FORESTER ) ) Arrival Mode Ambulatory,Cane Ambulatory,Cane Ambulatory Transfer Assistance None None None Patient Identification Verified (Name & Yes Yes Yes ) Patient Requires Transmission-Based No No No Precautions Finger Stick Blood Sugar(mg/dl) (if 97.6 indicated): Blood Sugar Stated by Patient Height and Weight Height 5 ft Weight 190 lb Weight in Pounds 190.0 lbs Body Mass Index (BMI) 37.0 37.0 37.0 BMI Classification Obese Obese Obese BSA - Nilda 1.83 Vital Signs Temperature (97.8 F-99.1 F) 97.2 F L 97.4 F L Temperature Source Temporal Temporal Temporal Pulse Rate (60-100) 85 98 Pulse Location Monitor Monitor Monitor Respiratory Rate (12-18) 16 20 H Respiratory rate source Observation Observation Observation Oxygen Delivery Method Room Air Blood Pressure (90/60-120/80) 164/77 H 135/73 H Blood Pressure Mean (mm Hg) 106 93 Source Monitor Monitor Monitor Position Sitting Sitting Blood Pressure Location Left Arm Right Arm History Since Last Visit- (Skip if this is Patient's initial visit) Have you changed medications since your No No No last visit? Any new allergies or adverse reactions No No No Had a fall/change in ADL's that may No Yes No increase risk of falls Signs or symptoms of abuse and/or No No No neglect since last visit Have you been in the hospital since your No No No last visit? Has dressing in place as prescribed Yes Yes Yes Has compression in place as prescribed No Yes N/A Has offloadiing in place as prescribed No N/A N/A Experienced any changes in pain level or No No No management Left Footwear Regular Shoe Right Footwear Regular Shoe Pain Scale: 0-10 Numeric Is Patient Pain Free? Yes Yes Yes Lower Extremity Assessment/ Foot Assessment/ Toe Nail Assessment Right -Posterior Tibial Palpable Yes -Dorsalis Pedis Palpable Yes -Extremity Color Normal -Hair Growth on Legs Yes -Hair Growth on Toes No -Temperature of Extremity Warm -Capillary Refill Greater than 3 Seconds -Dependent Rubor No -Lipodermatosclerosis No -Other Deformity No -Prior Foot Ulcer No -Charcot Joint No -Prior Amputation No -Thick No -Discolored No -Deformed No -Improper Length & Hygeine Yes Left -Posterior Tibial Palpable Yes -Dorsalis Pedis Palpable Yes -Extremity Color Hyperpigmented -Hair Growth on Legs Yes -Hair Growth on Toes No -Temperature of Extremity Cool -Capillary Refill Greater than 3 Seconds -Dependent Rubor No -Blanched when Elevated No -Lipodermatosclerosis No -Other Deformity No -Prior Foot Ulcer No -Charcot Joint No -Prior Amputation No -Thick No -Discolored No -Deformed No -Improper Length & Hygeine Yes Neuropathy Assessment Feet - Top Side and Bottom <Entered> (a) Communication Assessment Preferred language Swedish Slip Box Changer Required No Able to Read Yes Able to Write Yes Communication Tools None Caregiver Communication Skills No Impairment Impairment Right Hearing Abillity Normal Left Hearing Abillity Normal Visual Assistive Devices Glasses Teaching Assessment Preferences Verbal,Written, Demonstration Barriers to Learning None Readiness To Learn Good Willingness to Engage in Self Management Med Activies Readiness to Engage in Self Management Med Activities Anxiety Level Calm Cooperation Cooperative Perception Coherent Interest in Health Problem Asks Questions Education Importance Acknowledges Need Does Patient Smoke tobacco or other No substances Smoking Status Never smoker Is Patient Diabetic No Functional Assessment Recent Decline in Ability to Perform Denies Any Declines Culture/Mormon/Pump House Engineer Cultural/Mormon Needs that may affect No Treatment Plan Would you allow our hospital liability claims adjuster to No meet you for the purpose of spiritual/ emotional support? Pump House Engineer to contact place of restorationist No Teaching: Wound Center *Welcome to the Wound Center -Person Taught Patient,Family -Teaching Method Discussion -Response to teaching Verbalize understanding 12/10/22 12/13/22 14:48 11:19 WC - Today's Visit Information Type of service Nurse-only Follow-up Visit Visit (Physician/FIRE PREVENTION FORESTER ) Arrival Mode Ambulatory,Cane Ambulatory,Cane ,Wheelchair Transfer Assistance None None Patient Identification Verified (Name & Yes Yes ) Patient Requires Transmission-Based No No Precautions Finger Stick Blood Sugar(mg/dl) (if indicated): Blood Sugar Height and Weight Height Weight Weight in Pounds Body Mass Index (BMI) 37.0 37.0 BMI Classification Obese Obese BSA - Nilda Vital Signs Temperature (97.8 F-99.1 F) 97.4 F L 97 F L Temperature Source Temporal Temporal Pulse Rate (60-100) 94 89 Pulse Location Monitor Monitor Respiratory Rate (12-18) 18 16 Respiratory rate source Observation Observation Oxygen Delivery Method Room Air Blood Pressure (90/60-120/80) 150/55 H 139/63 H Blood Pressure Mean (mm Hg) 86 88 Source Monitor Monitor Position Sitting Blood Pressure Location Right Forearm History Since Last Visit- (Skip if this is Patient's initial visit) Have you changed medications since your No No last visit? Any new allergies or adverse reactions No No Had a fall/change in ADL's that may No No increase risk of falls Signs or symptoms of abuse and/or No No neglect since last visit Have you been in the hospital since your No No last visit? Has dressing in place as prescribed Yes Yes Has compression in place as prescribed Yes Yes Has offloadiing in place as prescribed N/A N/A Experienced any changes in pain level or No management Left Footwear Regular Shoe Right Footwear Regular Shoe Pain Scale: 0-10 Numeric Is Patient Pain Free? Yes Yes Lower Extremity Assessment/ Foot Assessment/ Toe Nail Assessment Right -Posterior Tibial Palpable -Dorsalis Pedis Palpable -Extremity Color -Hair Growth on Legs -Hair Growth on Toes -Temperature of Extremity -Capillary Refill -Dependent Rubor -Lipodermatosclerosis -Other Deformity -Prior Foot Ulcer -Charcot Joint -Prior Amputation -Thick -Discolored -Deformed -Improper Length & Hygeine Left -Posterior Tibial Palpable -Dorsalis Pedis Palpable -Extremity Color -Hair Growth on Legs -Hair Growth on Toes -Temperature of Extremity -Capillary Refill -Dependent Rubor -Blanched when Elevated -Lipodermatosclerosis -Other Deformity -Prior Foot Ulcer -Charcot Joint -Prior Amputation -Thick -Discolored -Deformed -Improper Length & Hygeine Neuropathy Assessment Feet - Top Side and Bottom Communication Assessment Preferred languages and literature instructor Required Able to Read Able to Write Communication Tools Caregiver Communication Skills Impairment Right Hearing Abillity Left Hearing Abillity Visual Assistive Devices Teaching Assessment Preferences Barriers to Learning Readiness To Learn Willingness to Engage in Self Management Activies Readiness to Engage in Self Management Activities Anxiety Level Cooperation Perception Interest in Health Problem Education Importance Does Patient Smoke tobacco or other substances Smoking Status Is Patient Diabetic Functional Assessment Recent Decline in Ability to Perform Culture/Mormon/Pump House Engineer Cultural/Mormon Needs that may affect Treatment Plan Would you allow our [facility] liability claims adjuster to meet you for the purpose of spiritual/ emotional support? Pump House Engineer to contact place of restorationist Teaching: Wound Center *Welcome to the Wound Center -Person Taught -Teaching Method -Response to teaching (a) 1 - + throughout WC - Nurse 1 - General Ulcer Measurement Start: 11/29/22 10:25 Freq: Status: Active Protocol: Activity Type Activity Date Activity User E-sign Co-sign Detail Recorded Client Recorded Date Recorded By Document 11/29/22 10:25 RB [id number] 11/29/22 10:46 RB Document 12/06/22 11:04 [facility] [id number] 12/06/22 11:15 BMF Document 12/10/22 13:31 DL [id number] 12/10/22 14:28 DL Document 12/10/22 14:48 DL [id number] 12/10/22 14:51 DL Document 12/13/22 11:19 DL [id number] 12/13/22 11:24 DL 11/29/22 12/06/22 12/10/22 10:25 11:04 13:31 Wound Center Nurse 1 2. LLE -Combined with other wound No No -Current Size (cm) - Length 1.5 1.8 6.1 -Current Size (cm) - Width 1 1.6 2.2 -Current Size (cm) - Depth 0.1 0.1 1.3 -Total Square Cm 1.5 2.88 13.42 -Date of Last Picture (Recall this 12/06/22 field) -Photo Taken Yes Yes No -Epithelialization Small 1-33% -Tunneling No No -Undermining/Tunneling No No -Undermining/Tunneling Starts (O'clock 1 ) -Undermining/Tunneling Ends (O'clock) 11 -Maximum Distance (cm) 2.8 -Circular Undermining No No -Exudate Amt Small Small Medium -Exudate Type Serosanguineous Serosanguineous Serosanguineous -Wound Margin Distinct, Distinct, Thickened & Outline Outline Rolled Under Attached Attached -Granulation Amt Small (1-33%) Large (67-100%) Large (67-100%) -Granulation Quality [place] Red Red -Slough/Fibrin Yes Yes -Necrosis Amt Large (67-100%) Small (1-33%) Small (1-33%) -Necrotic Tissue Type Eschar Adherent Slough Adherent Slough -Structure Exposed N/A -Texture ([place]-wound Skin Appearance) Assessed, Assessed, Scarring Localized Edema Scarring -Moisture ([place]-wound Skin Appearance) Assessed Assessed No Abnormality -Color ([place]-wound Skin Appearance) Erythema Assessed, No Abnormality Hemosiderin Staining -Temperature ([place]-wound Skin No Abnormality No Abnormality No Abnormality Appearance) (Pt Warm) (Pt Warm) (Pt Warm) -Tenderness on Palpation ([place]-wound No Yes Skin Appearance) -Ulcer Cleansing Wound Cleanser Soap and Water Soap and Water -Foul Odor after Cleansing No No No -Anesthetic Used 5% Lidocaine 5% Lidocaine 4% Lidocaine Gel Gel Solution Lower Limb Edema Present Yes Yes Right Calf (cm) 49 41.2 Right Ankle (cm) 29 26.9 Left Calf (cm) 47.5 Left Ankle (cm) 29 12/10/22 12/13/22 14:48 11:19 Wound Center Nurse 1 2. LLE -Combined with other wound No -Current Size (cm) - Length 0.8 -Current Size (cm) - Width 0.5 -Current Size (cm) - Depth 0.1 -Total Square Cm 0.40 -Date of Last Picture (Recall this field) -Photo Taken No -Epithelialization Medium 34-66% -Tunneling No -Undermining/Tunneling No -Undermining/Tunneling Starts (O'clock ) -Undermining/Tunneling Ends (O'clock) -Maximum Distance (cm) -Circular Undermining No -Exudate Amt Medium -Exudate Type Serosanguineous -Wound Margin Fibrotic Scar, Distinct, Thickened Scar Outline Attached -Granulation Amt Large (67-100%) Large (67-100%) -Granulation Quality Red Red -Slough/Fibrin Yes -Necrosis Amt None Present (0 Small (1-33%) %) -Necrotic Tissue Type Adherent Slough -Structure Exposed N/A N/A -Texture ([place]-wound Skin Appearance) No Abnormality Assessed, Scarring -Moisture ([place]-wound Skin Appearance) No Abnormality Assessed -Color ([place]-wound Skin Appearance) No Abnormality Assessed -Temperature ([place]-wound Skin No Abnormality No Abnormality Appearance) (Pt Warm) (Pt Warm) -Tenderness on Palpation ([place]-wound No No Skin Appearance) -Ulcer Cleansing Not Cleansed Soap and Water -Foul Odor after Cleansing No No -Anesthetic Used 5% Lidocaine Gel Lower Limb Edema Present Yes Right Calf (cm) Right Ankle (cm) Left Calf (cm) 41.5 Left Ankle (cm) 21.3 WC - Nurse 2 - General Ulcer CM Notes Start: 11/29/22 10:25 Freq: Status: Active Protocol: Activity Type Activity Date Activity User E-sign Co-sign Detail Recorded Client Recorded Date Recorded By Document 11/29/22 11:18 MW [id number] 11/29/22 11:22 MW Document 12/06/22 11:41 [id number] 12/06/22 11:44 JF Document 12/13/22 11:51 MW [id number] 12/13/22 11:53 MW 11/29/22 12/06/22 12/13/22 11:18 11:41 11:51 Wound Center Nurse 2 2. LLE -Time 11:19 11:42 11:51 -Correct Patient Yes Yes Yes -Correct Side, Site, Position Yes Yes Yes -Correct Procedure Yes Yes Yes -Procedure Performed Yes Yes Yes -Type of Procedure Debridement Debridement Debridement -Clinical Debridement Subcutaneous Subcutaneous Subcutaneous -Tissue Removed Subcutaneous Subcutaneous Subcutaneous -Post Debridement (cm) - Length 2.0 1.8 1.0 -Post Debridement (cm) - Width 1.4 0.9 0.6 -Post Debridement (cm) - Depth 0.1 0.1 0.1 -Total Square (Post) (cm) 2.80 1.62 0.60 -Area of Debridement (cm) - Length 2.0 1.8 1.0 -Area of Debridement (cm) - Width 1.4 0.9 0.6 -Total Square (Area) (cm) 2.80 1.62 0.60 -Tunneling No No No -Undermining/Tunneling No No No -Circular Undermining No No No -Wound/Ulcer Outcome Not Healed Not Healed Not Healed -Ulcer Cleansing Rinsed/ Rinsed/ Rinsed/ Irrigated with Irrigated with Irrigated with Saline Saline Saline -Foul Odor after Cleansing No No No -Bioengineered Tissue No No No -Bleeding Controlled with Pressure Pressure Pressure -Treatment Response Procedure Procedure Procedure Tolerated Well Tolerated Well Tolerated Well -Offloading No No No -Debridement - Subq, 1st 20sq cm Yes Yes Yes Pain Scale: 0-10 Numeric Is Patient Pain Free? Yes Yes Yes WC - Nurse 3 - General Ulcer D/C NN Start: 11/29/22 10:25 Freq: Status: Active Protocol: Activity Type Activity Date Activity User E-sign Co-sign Detail Recorded Client Recorded Date Recorded By Document 11/29/22 11:45 DL [id number] 11/29/22 11:53 DL Document 12/03/22 07:11 PL [id number] 12/04/22 07:12 PL Document 12/06/22 11:55 DL [id number] 12/06/22 11:56 DL Document 12/10/22 13:31 DL [id number] 12/10/22 14:28 DL Document 12/10/22 14:48 DL [id number] 12/10/22 14:51 DL Document 12/13/22 11:53 MW [id number] 12/13/22 11:54 MW 11/29/22 12/03/22 12/06/22 11:45 07:11 11:55 Wound Care Center Nurse 3 2. LLE -Ulcer Cleansing Rinsed/ Soap and Water Wound Cleanser Irrigated with Saline -Foul Odor after Cleansing No No No -Negative Pressure Wound Therapy -Primary Dressing Applied NonAdherent Promogran Promogran Contact Layer, Michelle Matter Promogran -Other Dressing -Primary Dressing Covered/Secured with Dry Gauze Dry Gauze -Promogran 1 1 -Promogran Michelle Matter 1 Left -Lotion applied to leg before compression wrap -Multi-Layered Wrap Application Multi-Layer Multi-Layer Multi-Layer Comp - Left ($) Comp - Left ($) Comp - Left ($) Treatment Response Procedure Procedure Tolerated Well Tolerated Well Vital Signs Temperature (97.8 F-99.1 F) Temperature Source Pulse Rate (60-100) Pulse Location Respiratory Rate (12-18) Respiratory rate source Blood Pressure (90/60-120/80) Blood Pressure Mean (mm Hg) Source Pain Scale: 0-10 Numeric Is Patient Pain Free? Yes Yes Yes Teaching: Wound Center Dressing Your Wound -Person Taught -Teaching Method -Response to teaching WC - Visit Discharge Discharge Condition Stable Stable Ambulatory Status Ambulatory Ambulatory,Cane Transportation Private Auto Accompanied by Medication Reconcilliation completed & provided to patient/care provider Clinical Summary of Care Provided Facility Type Detention Care Facility Orders Sent Yes 12/10/22 12/10/22 12/13/22 13:31 14:48 11:53 Wound Care Center Nurse 3 2. LLE -Ulcer Cleansing Soap and Water Rinsed/ Irrigated with Saline -Foul Odor after Cleansing No No -Negative Pressure Wound Therapy N/A -Primary Dressing Applied NonAdherent Promogran Contact Layer Michelle Matter -Other Dressing promogran -Primary Dressing Covered/Secured with Dry Gauze -Promogran -Promogran Michelle Matter 1 Left -Lotion applied to leg before No compression wrap -Multi-Layered Wrap Application Multi-Layer Multi-Layer Comp - Left ($) Comp - Left ($) Treatment Response Procedure Procedure Tolerated Well Tolerated Well Vital Signs Temperature (97.8 F-99.1 F) 97.4 F L 97.4 F L Temperature Source Temporal Temporal Pulse Rate (60-100) 98 94 Pulse Location Monitor Monitor Respiratory Rate (12-18) 20 H 18 Respiratory rate source Observation Observation Blood Pressure (90/60-120/80) 135/73 H 150/55 H Blood Pressure Mean (mm Hg) 93 86 Source Monitor Monitor Pain Scale: 0-10 Numeric Is Patient Pain Free? Yes Yes Yes Teaching: Wound Center Dressing Your Wound -Person Taught Patient -Teaching Method Discussion -Response to teaching Verbalize understanding WC - Visit Discharge Discharge Condition Stable Stable Ambulatory Status Ambulatory,Cane Ambulatory, Walker Transportation Private Auto Private Auto Accompanied by self Medication Reconcilliation completed & No provided to patient/care provider Clinical Summary of Care Provided Yes Facility Type Orders Sent Assessment/Plan Assessment/Plan (1) Wound of left lower extremity: CODE(S): S81.802A - Unspecified open wound, left lower leg, initial encounter QUALIFIERS: Encounter type: subsequent encounter Qualified Code( s): S81.802D - Unspecified open wound, left lower leg, subsequent encounter PLAN: Traumatic, penetrating. (2) Venous insufficiency of both lower extremities: CODE(S): I87.2 - Venous insufficiency (chronic) (peripheral) (3) Debility: CODE(S): R53.81 - Other malaise (4) Wound of left leg: CODE(S): S81.802A - Unspecified open wound, left lower leg, initial encounter QUALIFIERS: Encounter type: subsequent encounter Qualified Code( s): S81.802D - Unspecified open wound, left lower leg, subsequent encounter PLAN: Plan Debridement done as documented above, procedure was well-tolerated. Improving, no new concerns at this time. Switch to Michelle due to nonavailability of Promogran, cover with foam/superabsorbent dressing. 3M wrap for edema management. Leave on for 1 week. Leg elevation, exercise as tolerated and increased protein intake discussed, she voiced understanding. Follow-up with me on or sooner if needed. Her questions were answered and she was advised to call with any further questions or concerns. This note was generated with [employer] dictation software. It may contain incorrect words, spelling, and punctuation that were not noted in checking the note before signing.
== END 2022-12-19 23:59 | disposition home or self-care (01) ==
LOC: WC 11:00
PROVIDERS: PCP Family Medicine; Referring Provider Family Medicine; Visit Provider Internal Medicine
DX: S81.832A Puncture wound without foreign body, left lower leg, initial encounter (principal); G89.29 Other chronic pain; R60.0 Localized edema; R53.81 Other malaise; G62.9 Polyneuropathy, unspecified; W19.XXXA Unspecified fall, initial encounter; Z79.2 Long term (current) use of antibiotics; I87.2 Venous insufficiency (chronic) (peripheral)
CPT/HCPCS: 11042; 29581; 99213; G0463

== ENCOUNTER → 2022-12-13 | Outpatient (CLI) | payer MEDICARE, MEDICAID, SELFPAY ==
[2022-12-13 18:05] LABS: Amphetamine Urine VISTA NEGATIVE (<1000 ng/mL); Barbiturate Urine VISTA NEGATIVE (< 200 ng/mL); Benzodiazepine Urine VISTA NEGATIVE (< 200 ng/mL); Cocaine Urine VISTA NEGATIVE (< 300 ng/mL); Ecstacy Urine VISTA NEGATIVE (< 500 ng/mL); Methadone Urine VISTA NEGATIVE (< 300 ng/mL); PCP Urine VISTA NEGATIVE (< 25 ng/mL); THC Urine VISTA NEGATIVE (< 50 ng/mL); Vista UDS pH Range 4
== END | disposition home or self-care (01) ==
PROVIDERS: PCP Family Medicine; Visit Provider Anesthesiology Pain Medicine
DX: F11.20 Opioid dependence, uncomplicated (principal)
CPT/HCPCS: 11042; 29581; 80307

== ENCOUNTER 2022-12-27 10:45 | Outpatient (RCR) | payer MEDICARE, MEDICAID, SELFPAY ==
[2022-12-20 00:11] VITALS: BP 139/63; PULSE 89; RESP 16; TEMP 36.1; BMI 37.0
[2022-12-20 11:25] VITALS: BP 137/73; PULSE 91; RESP 20; TEMP 36.1; BMI 37.0
--- NOTE | 2022-12-20 12:11 | PN.PCM_ITS ---
History of Present Illness Date of Service: 12/20/22 Chief Complaint: Nonhealing left leg wound History of Wound: Ms Frederick is a 72 with past medical history as documented above who presents to the wound center due to nonhealing left leg wound. Her phone fell on her left leg resulting in an injury. Seen by her primary care physician and was advised to put bacitracin on which she been doing without any significant improvement. No history of diabetes but she does have lower extremity swelling. She feels well, no chills, fever, nausea or vomiting. Progress of Wound: No acute concerns at this time. Minimal area left. Objective Data Objective Data Vital Signs: Vital Signs Temp Pulse Resp BP 97 F L 91 20 H 137/73 H 12/20/22 11:25 12/20/22 11:25 12/20/22 11:25 12/20/22 11:25 Weight: 190 lb Body Mass Index (BMI) 37.0 Charges/Coding Visit Charges Office Visits / Consults: [id number] OV L3 Est Physical Exam Const alert, oriented x3 and no apparent distress General Appearance: cooperative, comfortable and well kempt HEENT normocephalic, head/scalp atraumatic and hearing grossly normal bilaterally Eyes EOMs intact bilaterally General Eye: normal appearance of both eyes Neck full ROM and supple General: normal visual inspection Resp normal respiratory effort Effort and Inspection: able to speak in complete sentences Extremity General Extremity: edema Skin Wounds: wounds noted Neuro oriented x3, CN's II-XII intact bilaterally, moves all extremities and no focal motor deficits Psych mental status grossly normal, thought process normal, cooperative and affect normal Debridement Note Debridement Note Post-Debridement Measurements and Additional Note: Post-Debridement Measurements/Treatment - Nurse 1 - General Ulcer Assessment Start: 12/20/22 11:24 Freq: Status: Active Protocol: ABE.HARI Activity Type Activity Date Activity User E-sign Co-sign Detail Recorded Client Recorded Date Recorded By Document 12/20/22 11:25 BMF [id number] 12/20/22 11:28 BMF Edit Result 12/20/22 11:25 BMF (1) [id number] 12/20/22 11:30 BMF (1) Blood Pressure (90/60-120/80) 164/68 H => 137/73 H Blood Pressure Mean (mm Hg) 100 => 94 12/20/22 11:25 - Today's Visit Information Type of service 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 ) Arrival Mode Ambulatory,Cane Transfer Assistance None Patient Identification Verified (Name & Yes ) Patient Requires Transmission-Based No Precautions Height and Weight Body Mass Index (BMI) 37.0 BMI Classification Obese Vital Signs Temperature (97.8 F-99.1 F) 97 F L Temperature Source Temporal Pulse Rate (60-100) 91 Pulse Location Monitor Respiratory Rate (12-18) 20 H Respiratory rate source Observation Blood Pressure (90/60-120/80) 137/73 H Blood Pressure Mean (mm Hg) 94 Source Monitor History Since Last Visit- (Skip if this is Patient's initial visit) Have you changed medications since your No last visit? Any new allergies or adverse reactions No Had a fall/change in ADL's that may No increase risk of falls Signs or symptoms of abuse and/or No neglect since last visit Have you been in the hospital since your No last visit? Has dressing in place as prescribed Yes Has compression in place as prescribed Yes Has offloadiing in place as prescribed N/A Experienced any changes in pain level or No management Pain Scale: 0-10 Numeric Is Patient Pain Free? Yes - Nurse 1 - General Ulcer Measurement Start: 12/20/22 11:24 Freq: Status: Active Protocol: Activity Type Activity Date Activity User E-sign Co-sign Detail Recorded Client Recorded Date Recorded By Document 12/20/22 11:25 [facility] [id number] 12/20/22 11:28 [facility] 12/20/22 11:25 Wound Center Nurse 1 2. LLE -Current Size (cm) - Length 0.1 -Current Size (cm) - Width 0.1 -Current Size (cm) - Depth 0.1 -Total Square Cm 0.01 -Photo Taken Yes -Exudate Amt None Present -Wound Margin Flat & Intact -Granulation Quality Pale,[place] -Necrosis Amt None Present (0 %) -Structure Exposed N/A -Texture ([place]-wound Skin Appearance) Scarring -Moisture ([place]-wound Skin Appearance) Dry/Scaly -Color ([place]-wound Skin Appearance) Hemosiderin Staining -Temperature ([place]-wound Skin No Abnormality Appearance) (Pt Warm) -Tenderness on Palpation ([place]-wound No Skin Appearance) -Ulcer Cleansing Soap and Water -Foul Odor after Cleansing No -Anesthetic Used 5% Lidocaine Gel Left Calf (cm) 41.8 Left Ankle (cm) 27.2 - Nurse 2 - General Ulcer CM Notes Start: 12/20/22 11:24 Freq: Status: Active Protocol: Activity Type Activity Date Activity User E-sign Co-sign Detail Recorded Client Recorded Date Recorded By Document 12/20/22 11:33 MW [id number] 12/20/22 11:34 MW 12/20/22 11:33 Wound Center Nurse 2 2. LLE -Time 11:33 -Correct Patient Yes -Correct Side, Site, Position Yes -Correct Procedure Yes -Procedure Performed No -Post Debridement (cm) - Length 0.1 -Post Debridement (cm) - Width 0.1 -Post Debridement (cm) - Depth 0.1 -Total Square (Post) (cm) 0.01 -Tunneling No -Undermining/Tunneling No -Circular Undermining No -Wound/Ulcer Outcome Not Healed -Ulcer Cleansing Rinsed/ Irrigated with Saline -Foul Odor after Cleansing No -Bioengineered Tissue No -Bleeding Controlled with NA Pain Scale: 0-10 Numeric Is Patient Pain Free? Yes - Nurse 3 - General Ulcer D/C NN Start: 12/20/22 11:24 Freq: Status: Active Protocol: Activity Type Activity Date Activity User E-sign Co-sign Detail Recorded Client Recorded Date Recorded By Document 12/20/22 11:38 DL [id number] 12/20/22 11:40 DL 12/20/22 11:38 Wound Care Center Nurse 3 2. LLE -Ulcer Cleansing Rinsed/ Irrigated with Saline -Foul Odor after Cleansing No -Primary Dressing Applied NonAdherent Contact Layer -Other Dressing lissa Left -Multi-Layered Wrap Application Multi-Layer Comp - Left ($) Treatment Response Procedure Tolerated Well Pain Scale: 0-10 Numeric Is Patient Pain Free? Yes - Visit Discharge Discharge Condition Stable Ambulatory Status Ambulatory,Cane Transportation Private Auto Assessment/Plan Assessment/Plan (1) Wound of left lower extremity: CODE(S): S81.802A - Unspecified open wound, left lower leg, initial encounter QUALIFIERS: Encounter type: subsequent encounter Qualified Code(s): S81.802D - Unspecified open wound, left lower leg, subsequent encounter PLAN: Traumatic, penetrating. (2) Venous insufficiency of both lower extremities: CODE(S): I87.2 - Venous insufficiency (chronic) (peripheral) (3) Debility: CODE(S): R53.81 - Other malaise (4) Wound of left leg: CODE(S): S81.802A - Unspecified open wound, left lower leg, initial encounter QUALIFIERS: Encounter type: subsequent encounter Qualified Code(s): S81.802D - Unspecified open wound, left lower leg, subsequent encounter PLAN: Plan No debridement completed today, minimal area left. Seen Lissa, Adaptic, cover with foam/superabsorbent dressing. 3M wrap for edema management. Leave on for 1 week. Leg elevation, exercise as tolerated and increased protein intake disc ussed, she voiced understanding. Her questions were answered and she was advised to call with any further questions or concerns. Follow-up in a week, anticipate discharge next week. This note was generated with [employer] dictation software. It may contain incorrect words, spelling, and punctuation that were not noted in checking the note before signing.
[2022-12-27 11:09] VITALS: BP 137/41; PULSE 84; RESP 20; TEMP 35.8; BMI 37.0
--- NOTE | 2022-12-27 12:17 | PCM.WC.PN ---
History of Present Illness Date of Service: 12/27/22 Chief Complaint: Nonhealing left leg wound History of Wound: Ms Frederick is a 72 with past medical history as documented above who presents to the wound center due to nonhealing left leg wound. Her phone fell on her left leg resulting in an injury. Seen by her primary care physician and was advised to put bacitracin on which she been doing without any significant improvement. No history of diabetes but she does have lower extremity swelling. She feels well, no chills, fever, nausea or vomiting. Progress of Wound: No acute concerns at this time. Healed. Objective Data Objective Data Vital Signs: Vital Signs Temp Pulse Resp BP 96.4 F L 84 20 H 137/41 H 12/27/22 11:09 12/27/22 11:09 12/27/22 11:09 12/27/22 11:09 Weight: 190 lb Body Mass Index (BMI) 37.0 Charges/Coding Visit Charges Office Visits / Consults: [id number] OV L3 Est Physical Exam Const alert, oriented x3 and no apparent distress General Appearance: cooperative, comfortable and well kempt HEENT normocephalic, head/scalp atraumatic and hearing grossly normal bilaterally Eyes EOMs intact bilaterally General Eye: normal appearance of both eyes Neck full ROM and supple General: normal visual inspection Resp normal respiratory effort Effort and Inspection: able to speak in complete sentences Extremity General Extremity: edema Neuro oriented x3, CN's II-XII intact bilaterally, moves all extremities and no focal motor deficits Psych mental status grossly normal, thought process normal, cooperative and affect normal Debridement Note Debridement Note Post-Debridement Measurements and Additional Note: Post-Debridement Measurements/Treatment WC - Nurse 1 - General Ulcer Assessment Start: 12/20/22 11:24 Freq: Status: Active Protocol: ABE.LOW[place]ERMANT Activity Type Activity Date Activity User E-sign Co-sign Detail Recorded Client Recorded Date Recorded By Document 12/20/22 11:25 BMF [id number] 12/20/22 11:28 BMF Edit Result 12/20/22 11:25 BMF (1) [id number] 12/20/22 11:30 BMF Document 12/27/22 11:09 DL [id number] 12/27/22 11:16 DL (1) Blood Pressure (90/60-120/80) 164/68 H => 137/73 H Blood Pressure Mean (mm Hg) 100 => 94 12/20/22 12/27/22 11:25 11:09 WC - Today's Visit Information Type of service Follow-up Visit 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 ) ) Arrival Mode Ambulatory,Cane Ambulatory,Cane Transfer Assistance None None Patient Identification Verified (Name & Yes Yes ) Patient Requires Transmission-Based No No Precautions Height and Weight Body Mass Index (BMI) 37.0 37.0 BMI Classification Obese Obese Vital Signs Temperature (97.8 F-99.1 F) 97 F L 96.4 F L Temperature Source Temporal Temporal Pulse Rate (60-100) 91 84 Pulse Location Monitor Monitor Respiratory Rate (12-18) 20 H 20 H Respiratory rate source Observation Observation Blood Pressure (90/60-120/80) 137/73 H 137/41 H Blood Pressure Mean (mm Hg) 94 73 Source Monitor Monitor History Since Last Visit- (Skip if this is Patient's initial visit) Have you changed medications since your No No last visit? Any new allergies or adverse reactions No No Had a fall/change in ADL's that may No No increase risk of falls Signs or symptoms of abuse and/or No No neglect since last visit Have you been in the hospital since your No No last visit? Has dressing in place as prescribed Yes Yes Has compression in place as prescribed Yes Yes Has offloadiing in place as prescribed N/A N/A Experienced any changes in pain level or No No management Pain Scale: 0-10 Numeric Is Patient Pain Free? Yes Yes - Nurse 1 - General Ulcer Measurement Start: 12/20/22 11:24 Freq: Status: Active Protocol: Activity Type Activity Date Activity User E-sign Co-sign Detail Recorded Client Recorded Date Recorded By Document 12/20/22 11:25 [facility] [id number] 12/20/22 11:28 [facility] Document 12/27/22 11:09 DL [id number] 12/27/22 11:16 DL 12/20/22 12/27/22 11:25 11:09 Wound Center Nurse 1 2. LLE -Current Size (cm) - Length 0.1 0.1 -Current Size (cm) - Width 0.1 0.1 -Current Size (cm) - Depth 0.1 0.1 -Total Square Cm 0.01 0.01 -Photo Taken Yes No -Exudate Amt None Present None Present -Wound Margin Flat & Intact Indistinct, Non -Visible -Granulation Amt Small (1-33%) -Granulation Quality Pale,[place] -Necrosis Amt None Present (0 None Present (0 %) %) -Structure Exposed N/A N/A -Texture ([place]-wound Skin Appearance) Scarring Scarring -Moisture ([place]-wound Skin Appearance) Dry/Scaly No Abnormality -Color ([place]-wound Skin Appearance) Hemosiderin No Abnormality Staining -Temperature ([place]-wound Skin No Abnormality No Abnormality Appearance) (Pt Warm) (Pt Warm) -Tenderness on Palpation ([place]-wound No Skin Appearance) -Ulcer Cleansing Soap and Water Soap and Water -Foul Odor after Cleansing No No -Anesthetic Used 5% Lidocaine 5% Lidocaine Gel Gel Left Calf (cm) 41.8 42 Left Ankle (cm) 27.2 26.5 WC - Nurse 2 - General Ulcer CM Notes Start: 12/20/22 11:24 Freq: Status: Active Protocol: Activity Type Activity Date Activity User E-sign Co-sign Detail Recorded Client Recorded Date Recorded By Document 12/20/22 11:33 MW [id number] 12/20/22 11:34 MW Document 12/27/22 11:27 MW [id number] 12/27/22 11:28 MW 12/20/22 12/27/22 11:33 11:27 Wound Center Nurse 2 2. LLE -Time 11:33 11:28 -Correct Patient Yes Yes -Correct Side, Site, Position Yes Yes -Correct Procedure Yes Yes -Procedure Performed No No -Post Debridement (cm) - Length 0.1 0 -Post Debridement (cm) - Width 0.1 0 -Post Debridement (cm) - Depth 0.1 -Total Square (Post) (cm) 0.01 0 -Tunneling No -Undermining/Tunneling No -Circular Undermining No -Wound/Ulcer Outcome Not Healed Healed- Epithelialized -Ulcer Cleansing Rinsed/ Irrigated with Saline -Foul Odor after Cleansing No -Bioengineered Tissue No -Bleeding Controlled with NA Pain Scale: 0-10 Numeric Is Patient Pain Free? Yes Yes - Nurse 3 - General Ulcer D/C NN Start: 12/20/22 11:24 Freq: Status: Active Protocol: Activity Type Activity Date Activity User E-sign Co-sign Detail Recorded Client Recorded Date Recorded By Document 12/20/22 11:38 DL [id number] 12/20/22 11:40 DL Document 12/27/22 11:38 [facility] [id number] 12/27/22 11:39 [facility] 12/20/22 12/27/22 11:38 11:38 Wound Care Center Nurse 3 2. LLE -Ulcer Cleansing Rinsed/ Irrigated with Saline -Foul Odor after Cleansing No -Primary Dressing Applied NonAdherent NonAdherent Contact Layer Contact Layer -Other Dressing lissa -Primary Dressing Covered/Secured with Dry Gauze & Roll Gauze, Secured with Tape Left -Multi-Layered Wrap Application Multi-Layer Comp - Left ($) -Other PT WILL APPLY OWN COMPRESSION STOCKING WHEN HOME; DIDN'T BRING Treatment Response Procedure Procedure Tolerated Well Tolerated Well Pain Scale: 0-10 Numeric Is Patient Pain Free? Yes Yes - Visit Discharge Discharge Condition Stable Stable Ambulatory Status Ambulatory,Cane Ambulatory,Cane Transportation Private Auto Private Auto Assessment/Plan Assessment/Plan (1) Wound of left lower extremity: CODE(S): S81.802A - Unspecified open wound, left lower leg, initial encounter QUALIFIERS: Encounter type: subsequent encounter Qualified Code(s): S81.802D - Unspecified open wound, left lower leg, subsequent encounter PLAN: Traumatic, penetrating. (2) Venous insufficiency of both lower extremities: CODE(S): I87.2 - Venous insufficiency (chronic) (peripheral) (3) Debility: CODE(S): R53.81 - Other malaise (4) Wound of left leg: CODE(S): S81.802A - Unspecified open wound, left lower leg, initial encounter QUALIFIERS: Encounter type: subsequent encounter Qualified Code(s): S81.802D - Unspecified open wound, left lower leg, subsequent encounter PLAN: Plan No debridement completed today, healed. Continue Adaptic and gauze x 2 weeks. Moisturize adequately. Compliance with compression also strongly recommended. Her questions were answered and she was advised to call with any further questions or concerns. Discharge from the wound center. This note was generated with [employer] dictation software. It may contain incorrect words, spelling, and punctuation that were not noted in checking the note before signing.
== END 2022-12-28 10:50 | disposition home or self-care (01) ==
LOC: WC 10:45
PROVIDERS: PCP Family Medicine; Referring Provider Family Medicine; Visit Provider Internal Medicine
DX: S81.802D Unspecified open wound, left lower leg, subsequent encounter (principal); I87.2 Venous insufficiency (chronic) (peripheral); R53.81 Other malaise
CPT/HCPCS: 29581; 99213; G0463

== ENCOUNTER 2023-07-28 19:06 | Observation (INO) | payer MEDICARE, MEDICAID, SELFPAY ==
[2023-07-28 19:06] VITALS: BP 146/78; PULSE 98; RESP 16; TEMP 36.8; O2SAT 94
--- NOTE | 2023-07-28 19:33 | EKG12_ITS ---
Test Reason : WEAKNESS Blood Pressure : / mmHG Vent. Rate : 094 BPM Atrial Rate : 094 BPM P-R Int : 138 ms QRS Dur : 094 ms QT Int : 370 ms P-R-T Axes : 046 029 059 degrees QTc Int : 462 ms Normal sinus rhythm Nonspecific ST abnormality Abnormal ECG Confirmed by BERNARDO LUND, WILLIAM ([id number]), book or script editor EARL SILVA ([id number]) on 07/30/2023 9:53:41 AM Referred By: Confirmed By:WILLIAM CHANG MD
[2023-07-28 19:34] VITALS: BP 152/73; PULSE 96; RESP 20; O2SAT 91
--- NOTE | 2023-07-28 19:34 | EDS_ITS ---
HPI History of Present Illness Chief Complaint: Weakness Narrative Narrative: 73-year-old female presenting with generalized weakness. Patient states she is unable to ambulate or get around her home. Patient states she has a deaf roommate who cannot hear her if she needs help and lives downstairs. Patient states that she had pneumonia last week. She had cough, congestion, body aches. She was seen by her primary care physician who did a chest x-ray which showed some opacities and patient was treated with Augmentin and a Z-Tayo. Patient tested for COVID, influenza, RSV and these were all negative. Patient states he is not getting better. Patient states he is not sure if she is dehydrated and drank 4 bottles of water today. She is making urine and denies dysuria or hematuria. She had 2 episodes of diarrhea this morning but states she took Imodium and this improved. Patient states she called EMS earlier this morning at about 3 AM because she could not get off of the commode and was there for 3 hours. Patient denies chest pain, palpitations. She feels fine when she sitting in the bed. No dysuria and patient states she would know if she had a UTI. Patient has a history of C. difficile colitis. She states this does not feel like C. difficile and she states that the smell is not consistent. [facility] Medical History Cancer Chronic pain Debility History of stroke Lymphedema Migraines Non-smoker Osteoporosis Stroke/cerebrovascular accident Venous insufficiency Venous insufficiency of both lower extremities Wound of left leg Wound of left lower extremity Home Medications diltiazem HCl 300 mg capsule,extended release 24 hr 300 mg PO DAILY prevents migraines 04/09/15 [History Last Taken 02/28/21 08:00] gabapentin 300 mg capsule 300 mg PO DAILY nerve pain 04/09/15 [History Last Taken 02/28/21 08:00] docusate sodium 100 mg capsule (DOK) 100 mg PO DAILY constipation 02/09/17 [History Last Taken 02/28/21 08:00] furosemide 20 mg tablet 40 mg PO DAILY water retention 02/09/17 [History Last Taken 02/28/21 08:00] multivitamin (Daily Multiple tablet) 1 ea PO DAILY supplement 02/09/17 [History Last Taken 02/28/21 08:00] cholecalciferol (vitamin D3) 50 mcg (2,000 unit) capsule (Vitamin D3) 2,000 unit PO DAILY supplement 03/19/18 [History Last Taken 02/28/21 08:00] potassium chloride 20 mEq tablet,extended release(part/cryst) (Klor-Con M) 10 meq PO DAILY supplement 03/19/18 [History Last Taken 02/27/21 20:00] oxybutynin chloride 5 mg tablet 2.5 mg PO BID urinary issues 11/25/18 [History Last Taken 02/28/21 08:00] hydrocodone-acetaminophen 5-325mg 5mg-325mg 2 tab PO QHS 08/17/19 [History Last Taken 02/28/21 08:00] amitriptyline 75 mg tablet 75 mg PO QHS migraine prevention 05/02/20 [History Last Taken 02/27/21 20:00] atorvastatin 10 mg tablet 10 mg PO QHS cholesterol 02/28/21 [History Last Taken 02/27/21 20:00] hydrocortisone 2.5 % topical cream 1 applic topical BID PRN Hemorrhoids 03/01/21 [History Last Taken 02/28/21 19:30] omeprazole 40 mg capsule,delayed release 40 mg PO DAILY 12/02/21 [History Last Taken Unknown] calcium carbonate 500 mg-vitamin D3 10 mcg (400 unit) tablet (Oyster Shell Calcium-Vitamin D3) 1 tab PO BID 07/28/23 [History Last Taken Unknown] famotidine 20 mg tablet 20 mg PO QHS 07/28/23 [History Last Taken Unknown] hydrocodone-acetaminophen 5-325mg 5mg-325mg 1 tab PO DAILY PRN pain 07/28/23 [History Last Taken Unknown] tolterodine 4 mg capsule,extended release 24 hr 4 mg PO DAILY 07/28/23 [History Last Taken Unknown] Allergy/AdvReac Type Severity Reaction Status Date / Time hydrochlorothiazide Allergy increases Verified 12/02/21 17:57 calcium metronidazole [From Flagyl] Allergy Diarrhea Verified 12/02/21 17:57 triamterene AdvReac increases Verified 12/02/21 17:57 calcium Surgical History History of cholecystectomy Social History Smoking Status: Never smoker ROS ROS ED Constitutional Constitutional ED: Reports chills and other Details: Generalized weakness ; Denies sweats Eyes Eyes: Denies blurry vision or change in vision ENT ENT ED: Denies rhinorrhea or sore throat Cardiovascular Cardiovascular: Denies chest pain or palpitations Respiratory/Chest Respiratory/Chest: Reports cough and dyspnea Gastrointestinal Gastrointestinal: Reports diarrhea; Denies abdominal pain or nausea Genitourinary Genitourinary ED: Denies dysuria or hematuria Musculoskeletal Musculoskeletal: Reports arthralgias and myalgias Integumentary Denies Abrasions Neurologic Neurologic: Denies headache(s) or paresthesias Psychiatric Psychiatric: Denies anxiety or depression EXAM Physical Exam Const Vital Signs: 07/28/23 19:06 07/28/23 19:22 07/28/23 19:34 Temperature 98.2 F Temperature Source Temporal Pulse Rate 98 96 Respiratory Rate 16 20 H Respiratory Effort Normal Non-Labored Respiratory Depth Respiratory Pattern Blood Pressure 146/78 H 152/73 H Blood Pressure Mean 100 99 Pulse Ox 94 91 Oxygen Delivery Method Room Air Room Air 07/28/23 19:36 07/28/23 21:09 Temperature Temperature Source Pulse Rate 95 Respiratory Rate 23 H Respiratory Effort Non-Labored Respiratory Depth Normal Respiratory Pattern Normal Blood Pressure 165/88 H Blood Pressure Mean 113 Pulse Ox 93 Oxygen Delivery Method Room Air Positive well nourished General Appearance ED: NAD; Negative for pallor HEENT Reports moist mucous membranes Eyes PERRL and EOMs intact bilaterally Neck no lymphadenopathy Resp normal respiratory effort Auscultation: rales right mid; Negative for wheezes Cardio regular rate and regular rhythm GI normal to inspection, nondistended, normoactive bowel sounds Neuro oriented x3 Sensorium / Orientation: alert Psych mental status grossly normal Skin no rashes or lesions noted General Skin Exam: Negative for jaundice or pallor MDM MDM MDM Narrative Medical decision making narrative: Patient presented with generalized weakness after being diagnosed with pneumonia last week. She has not been on Augmentin and a Z-Tayo. Differential includes pneumonia, viral URI, dehydration, anemia, electrolyte abnormalities, dys rhythmia, UTI, rhabdomyolysis. CBC will be obtained to assess white blood cell count, hemoglobin, platelets. CMP to assess liver function, renal function and electrolytes. Urinalysis to assess for UTI. CPK to assess for rhabdomyolysis. EKG and high-sensitivity troponin to assess for ischemia/dysrhythmia. Chest x- ray to rule out pneumonia. Patient given IV fluids. She does not need anything for nausea or pain she states. CBC shows normal white blood cell count 10.5. Hemoglobin 12.4. Platelets 154. Renal function and electrolytes within normal limits with exception of a potassium of 3.0. Glucose 123. Liver function normal. CPK minimally elevated at 238. High-sensitivity troponin is 12. EKG on my interpretation shows a normal sinus rhythm with a ventricular of 94 bpm without sign of ischemic change. Chest x-ray on my interpretation shows no acute process. The radiologist interprets this and agrees. Waiting for urinalysis but patient will need to be admitted due to debility. Potassium is low at 3.0 so this repleted orally. She was given 40 mill equivalents. Urinalysis is negative. Patient still too weak to get up and ambulate and she lives at home alone. Will talk to the hospitalist for admission. Impression: 1. Debility 2. Hypokalemia Lab Data Attestation: I reviewed the patient's lab results. Labs: Laboratory Results - last 24 hr 07/28/23 07/28/23 19:50 21:05 WBC 10.5 RBC 4.30 Hgb 12.4 Hct 38.6 MCV 89.8 MCH 28.8 MCHC 32.1 RDW Std Deviation 42.0 RDW Coeff of Adriana 12.8 Plt Count 254 MPV 9.1 Immature Gran % (Auto) 0.400 Neut % (Auto) 73.7 H Lymph % (Auto) 16.8 L Whitley % (Auto) 7.5 Eos % (Auto) 1.3 Baso % (Auto) 0.3 Absolute Neuts (auto) 7.7 Absolute Lymphs (auto) 1.76 Nucleated RBC % 0 Sodium 140 Potassium 3.0 L Chloride 106 Carbon Dioxide 30.0 Anion Gap 4 L BUN 8 Creatinine 0.65 Est GFR (MDRD) Af Amer 114 Est GFR (MDRD) Non-Af 94 BUN/Creatinine Ratio 12.3 Glucose 123 H Calcium 9.0 Total Bilirubin 0.30 AST 16 ALT 23 Alkaline Phosphatase 117 Total Creatine Kinase 238 H Troponin I High Sens 12 Total Protein 6.5 Albumin 2.9 L Globulin 3.6 Albumin/Globulin Ratio 0.8 L Urine Color Yellow Urine Clarity Clear Urine pH 6.0 Ur Specific [place] 1.010 Urine Protein 30 H Urine Glucose (UA) Normal Urine Ketones Negative Urine Occult Blood 25 H Urine Nitrite Negative Urine Bilirubin Negative Urine Urobilinogen Normal Ur Leukocyte Esterase 25 H Urine RBC 0 SEEN Urine WBC 0-5 SEEN Ur Squamous Epith Cells 0 SEEN Urine Bacteria 0 SEEN Urine Mucus 0 SEEN Radiography Diagnostic Testing: Clinical Impression(s) from Imaging Studies Chest X-Ray 07/28/23 20:00 IMPRESSION: Normal x-ray examination of the chest. Electronically Signed: Richard Johns MD at 20:19 EST , Discharge Plan Triage Chief Complaint: Weakness Other Complaint: Cough ED Provider: Geovanny Zaragoza Dx/Rx/DC Orders Prescriptions: No Action diltiazem HCl 300 MG capsule,extended release 24hr 300 mg PO DAILY Patient Comments: HEART gabapentin 300 MG capsule 300 mg PO DAILY Patient Comments: NERVE PAIN multivitamin [Daily Multiple] 1 EACH tablet 1 ea PO DAILY Patient Comments: VITAMIN docusate sodium [DOK] 100 MG capsule 100 mg PO DAILY Patient Comments: STOOL SOFTENER furosemide 20 MG tablet 40 mg PO DAILY Patient Comments: DIURETIC cholecalciferol (vitamin D3) [Vitamin D3] 2,000 UNIT capsule 2,000 unit PO DAILY potassium chloride [Klor-Con M20] 20 MEQ tablet 10 meq PO DAILY oxybutynin chloride 5 MG tablet 2.5 mg PO BID hydrocodone-acetaminophen 1 TABLET tablet 2 tab PO QHS amitriptyline 75 MG tablet 75 mg PO QHS atorvastatin 10 mg Tablet 10 mg PO QHS hydrocortisone 2.5 % Cream 1 applic TOPICAL BID PRN (Reason: Hemorrhoids) omeprazole 40 mg Capsule,Delayed Release(Dr/Ec) 40 mg PO DAILY famotidine 20 mg tablet 20 mg PO QHS Patient Comments: Take 1 tablet by mouth at bedtime as needed. hydrocodone-acetaminophen 5-325 mg tablet 1 tab PO DAILY PRN (Reason: pain) calcium carbonate-vitamin D3 [Oyster Shell Calcium-Vit D3] 500 mg-10 mcg (400 unit) tablet 1 tab PO BID Patient Comments: TAKE 1 TABLET BY MOUTH THREE TIMES DAILY tolterodine 4 mg capsule,extended release 24hr 4 mg PO DAILY Patient Comments: TAKE 1 CAPSULE BY MOUTH ONCE DAILY Primary Care Provider: Miguel Teresa Referrals: Miguel Teresa MD [Primary Care Provider] -
--- OUTSIDE RECORDS SUMMARY | 2023-07-28 19:41 | XMS RPT_ITS | CCD ---
Author Name Unknown Address [address] [place] [address] Organization [facility] Care Team Providers Care Staff Nuclear Weapons Officer Name Role Phone Shorty Teresa MD Primary Care Provider PROVIDER, UNKNOWN Referring Unavailable SHORTY TERESA Primary Care Unavailab Shorty Mason MD Primary Care Provider LEYDI VANCE Admitting Unavailable LEYDI VANCE Attending Unavailable SHORTY TERESA Primary Care Unavailab SHORTY Mason Primary Care Unavailab LEYDI Larry Referring Unavailable SHORTY TERESA Primary Care Unavailab le LEYDI VANCE Referring Unavailable SHORTY TERESA Primary Care Unavailab SHORTY Mason Primary Care Unavailab SHORTY Mason Attending Unavailab SHORTY Mason Primary Care Unavailab SHORTY Mason Attending Unavailab SHORTY Mason Primary Care Unavailab SHORTY Mason Referring Unavailab SHORTY Mason Primary Care Unavailab BLAYNE Rosen Attending Unavailable SHORTY TERESA Primary Care Unavailab le LEYDI VANCE Referring Unavailable SHORTY TERESA Primary Care Unavailab SHORTY Mason Referring Unavailab SHORTY Mason Primary Care Unavailab SHORTY Mason Attending Unavailab SHORTY Mason Primary Care Unavailab KASSANDRA Sanchez Attending Unavailable SHORTY TERESA Primary Care Unavailab SHORTY Mason Referring Unavailab SHORTY Mason Primary Care Unavailab SHORTY Mason Primary Care Unavailab emerson VANCE LEYDI Referring Unavailable SHORTY TERESA Attending UnavailSHORTY Michelle Primary Care Unavailab SHORTY Mason Primary Care Unavailab HAYDEN Solares Attending Unavailable ARNOL JONAS Attending Unavailable SHORTY TERESA Primary Care Unavailab SHORTY Mason Primary Care Unavailab emerson FLANAGAN, HAYDEN Referring Unavailable SHORTY TERESA Primary Care Unavailab emerson FLANAGAN, HAYDEN Referring Unavailable SHORTY TERESA Primary Care Unavailab emerson FLANAGAN, HAYDEN Attending Unavailable SHORTY TERESA Primary Care Unavailab emerson FLANAGAN, HAYDEN Referring Unavailable SHORTY TERESA Primary Care Unavailab ARNOL Rodriguez Referring Unavailable PALAK, ARNOL Attending Unavailable SHORTY TERESA Attending UnavailSHORTY Michelle Primary Care Unavailab SHORTY Mason Attending UnavailSHORTY Michelle Primary Care Unavailab LEYDI Larry Attending Unavailable SHORTY TERESA Primary Care Unavailab emerson FLANAGAN, HAYDEN Referring Unavailable Allergies Allergy Classification Reported Allergen(s) Allergy Type Date of Onset Reaction(s) Facility (20 sources) metroNIDAZOLE; Translations: [METRONIDAZOLE] Drug Allergy 7 GI Upset [facility] (6 sources) Thiazides; Translations: [THIAZIDES] Drug Intolerance 6 Other: See Comments [facility] (20 sources) Thiazides Drug Intolerance 6 Other: See Comments [facility] Medications Current Medications Medication Drug Class(es) Dates Sig (Normalized) Sig (Original) cephalexin 500 mg oral capsule (3 sources) Cephalosporin Antibacterial Start: 07-26-2022 End: 08-02-2022 take 1 capsule by mouth twice daily cephALEXin (KEFLEX) 500 mg capsule Indications: Urinary frequency Take 1 capsule by mouth twice daily for 7 days. 14 capsule 0 07/26/2022 08/02/2022 Active Completed/Discontinued Medications Medication Drug Class(es) Dates Sig (Normalized) Sig (Original) acetaminophen 500 mg oral tablet (7 sources) Start: 02-08-2023 take 1 tablet by mouth every six hours as needed acetaminophen (TYLENOL) 500 mg tablet Take 1 tablet by mouth every 6 hours as needed for pain. 50 tablet 0 02/08/2023 Active Problems Active Problems Problem Classification Problem Date Documented Date Episodic/Chronic Acute cerebrovascular disease (20 sources) Cerebrovascular accident due to thrombus of right middle cerebral artery; Translations: [Cerebral infarction due to thrombosis of right middle cerebral artery] Onset: 6 11-15-2017 Chronic Conditions associated with dizziness or vertigo (1 source) Dizziness; Translations: [Dizziness and giddiness] Episodic Disorders of lipid metabolism (20 sources) Hyperlipidemia; Translations: [Hyperlipidemia, unspecified] Onset: 4 02-14-2014 Chronic Esophageal disorders (16 sources) Gastroesophageal reflux disease; Translations: [Gastro-esophageal reflux disease without esophagitis] Onset: 3 Chronic Fluid and electrolyte disorders (2 sources) Hypokalemia; Translations: [Hypokalemia] Episodic Genitourinary symptoms and ill-defined conditions (1 source) Increased frequency of urination; Translations: [Frequency of micturition] Episodic Headache; including migraine (20 sources) Migraine without aura; Translations: [Migraine without aura, not intractable, without status migrainosus] Onset: 2 02-02-2022 Chronic Immunizations and screening for infectious disease (2 sources) Immunization due; Translations: [Encounter for immunization] Onset: 3 06-19-2023 Episodic Malaise and fatigue (1 source) Fatigue; Translations: [Other fatigue] Episodic Menopausal disorders (1 source) Atrophic vaginitis; Translations: [Postmenopausal atrophic vaginitis] Chronic Miscellaneous mental health disorders (1 source) Primary insomnia; Translations: [Primary insomnia] Chronic Mood disorders (7 sources) Recurrent major depressive episodes; Translations: [Major depressive disorder, recurrent, unspecified] Onset: 3 02-12-2023 Chronic Nutritional deficiencies (20 sources) Vitamin D deficiency; Translations: [Vitamin D deficiency, unspecified] Onset: 9 08-14-2015 Chronic Osteoarthritis (20 sources) Osteoarthritis; Translations: [Osteoarthrosis, unspecified whether generalized or localized, lower leg] Onset: 0 06-29-2010 Chronic Osteoporosis (20 sources) Osteoporosis; Translations: [Age-related osteoporosis without current pathological fracture] Onset: 1 05-13-2021 Chronic Other connective tissue disease (1 source) Swelling of left lower limb; Translations: [Other specified soft tissue disorders] Episodic Other connective tissue disease (1 source) Swelling of lower limb; Translations: [Other specified soft tissue disorders] 06-19-2023 Episodic Other connective tissue disease (2 sources) Other specified soft tissue disorders; Translations: [Leg swelling] Onset: 3 Episodic Other diseases of bladder and urethra (20 sources) Overactive bladder; Translations: [Overactive bladder] Onset: 4 11-15-2017 Chronic Other diseases of bladder and urethra (1 source) Overactive bladder; Translations: [OAB (overactive bladder)] Onset: 8 Chronic Other diseases of veins and lymphatics (20 sources) Peripheral venous insufficiency; Translations: [Venous insufficiency (chronic) (peripheral)] 03-26-2018 Episodic Other endocrine disorders (20 sources) Hyperparathyroidism; Translations: [Hyperparathyroidism, unspecified] Onset: 2 07-27-2021 Chronic Other endocrine disorders (3 sources) Primary hyperparathyroidism; Translations: [Primary hyperparathyroidism] Chronic Other endocrine disorders (2 sources) Primary hyperparathyroidism; Translations: [Primary hyperparathyroidism (HCC)] Onset: 3 Chronic Other endocrine disorders (1 source) Hyperparathyroidism, unspecified; Translations: [Hyperparathyroidism (HCC)] Onset: 2 Chronic Other gastrointestinal disorders (1 source) Esophageal dysphagia; Translations: [Other dysphagia] Episodic Other liver diseases (3 sources) Alkaline phosphatase raised; Translations: [Abnormal levels of other serum enzymes] Episodic Other lower respiratory disease (1 source) Other abnormalities of breathing; Translations: [Decreased breath sounds at left lung base] Onset: 4 Episodic Other non-traumatic joint disorders (2 sources) Pain in right knee; Translations: [Pain in joint, lower leg] Onset: 3 Episodic Other non-traumatic joint disorders (1 source) Pain in left knee; Translations: [Pain in both knees, unspecified chronicity] Onset: 3 Episodic Other nutritional; endocrine; and metabolic disorders (20 sources) Hypercalcemia; Translations: [Hypercalcemia] Onset: 1 05-13-2021 Chronic Other nutritional; endocrine; and metabolic disorders (20 sources) Obese class II; Translations: [Obesity, unspecified] Onset: 2 07-27-2021 Chronic Other nutritional; endocrine; and metabolic disorders (14 sources) Body mass index 40+ - severely obese; Translations: [Morbid (severe) obesity due to excess calories] Onset: 2 01-31-2023 Chronic Other nutritional; endocrine; and metabolic disorders (2 sources) Hypercalcemia; Translations: [Hypercalcemia] Onset: 1 Chronic Other nutritional; endocrine; and metabolic disorders (1 source) Morbid (severe) obesity due to excess calories; Translations: [Obesity, Class III, BMI 40-49.9 (morbid obesity) (HCC)] Onset: 3 Chronic Other screening for suspected conditions (not mental disorders or infectious disease) (8 sources) Other specified abnormal findings of blood chemistry; Translations: [Other abnormal blood chemistry] Onset: 3 Episodic Paralysis (20 sources) Left hemiparesis; Translations: [Spastic hemiplegia affecting left nondominant side] Onset: 4 03-16-2014 Chronic Prolapse of female genital organs (20 sources) Incomplete uterovaginal prolapse; Translations: [Incomplete uterovaginal prolapse] Onset: 7 11-01-2016 Chronic Residual codes; unclassified (1 source) Edema of lower extremity; Translations: [Localized edema] Episodic Residual codes; unclassified (2 sources) Bilateral lower limb edema; Translations: [Localized edema] Episodic Substance-related disorders (1 source) Finding related to substance use; Translations: [Opioid use, unspecified, uncomplicated] Episodic Unclassified (1 source) Suspected COVID-19 virus infection; Translations: [Suspected COVID-19 virus infection] Onset: 4 Past or Other Problems Problem Classification Problem Date Documented Da te Episodic/Chronic E Codes: Fall (1 source) Unspecified fall, initial encounter; Translations: [Fall in home, initial encounter] Onset: 11-06-2022 Episodic E Codes: Place of occurrence (1 source) Unspecified place in unspecified non-institutional (private) residence as the place of occurrence of the external cause; Translations: [Fall in home, initial encounter] Onset: 11-06-2022 Episodic Open wounds of extremities (2 sources) Tear of skin; Translations: [Laceration without foreign body, left lower leg, initial encounter] Onset: 11-06-2022 Episodic Other and unspecified benign neoplasm (20 sources) Benign neoplasm of skin of face; Translations: [Other benign neoplasm of skin of unspecified part of face] Onset: 08-15-2005 04-21-2010 Episodic Other bone disease and musculoskeletal deformities (20 sources) Osteopenia; Translations: [Other specified disorders of bone density and structure, unspecified site] Onset: 08-31-2013 07-17-2021 Episodic Other bone disease and musculoskeletal deformities (1 source) Other specified disorders of bone density and structure, unspecified site; Translations: [Osteopenia, unspecified location] Onset: 07-18-2021 Episodic Other connective tissue disease (20 sources) Pes anserinus bursitis of left knee; Translations: [Other bursitis of knee, left knee] Onset: 05-26-2012 05-26-2012 Episodic Other diseases of veins and lymphatics (1 source) Venous insufficiency (chronic) (peripheral); Translations: [Venous incompetence] Onset: 03-26-2018 Episodic Residual codes; unclassified (20 sources) Insomnia; Translations: [Insomnia, unspecified] Onset: 02-02-2022 02-02-2022 Episodic Residual codes; unclassified (1 source) Localized edema; Translations: [Bilateral lower extremity edema] Onset: 11-06-2022 Episodic Spondylosis; intervertebral disc disorders; other back problems (20 sources) Chronic low back pain; Translations: [Chronic bilateral low back pain without sciatica] Onset: 04-13-2016 04-13-2016 Episodic Urinary tract infections (5 sources) Acute cystitis; Translations: [Acute cystitis without hematuria] Onset: 08-13-2022 Episodic Results Test Name Value Interpretation Reference Range Facil ity Vital Signs Date Time Vital Sign Value Performing Clinician Maytei felisa 06-19-2023 13:42-0500 Body weight 92.99 kg Kassandra Sharma APRN.CNP Work Phone: [facility] 06-19-2023 13:42-0500 Diastolic blood pressure 80 mm[Hg] Kassandra Sharma APRN.CNP Work Phone: [facility] 06-19-2023 13:42-0500 Heart rate 90 /min Kassandra Sharma APRN.CNP Work Phone: [facility] 06-19-2023 13:42-0500 Respiratory rate 18 /min Kassandra Podlogar TOP FLAVOR ATTENDANT.WHITE MIXING OPERATOR Work Phone: [facility] 06-19-2023 13:42-0500 SaO2% (BldA) [Mass fraction] 91 % Kassandra Podlogar TOP FLAVOR ATTENDANT.WHITE MIXING OPERATOR Work Phone: [facility] 06-19-2023 13:42-0500 Systolic blood pressure 136 mm[Hg] Kassandra Podlogar TOP FLAVOR ATTENDANT.WHITE MIXING OPERATOR Work Phone: [facility] 05-29-2023 16:09-0500 Body height 152.4 cm Hayden Flanagan MD Work Phone: [facility] 05-29-2023 16:09-0500 Body weight 94.6 kg Hayden Flanagan MD Work Phone: [facility] 05-29-2023 16:09-0500 Diastolic blood pressure 75 mm[Hg] Hayden Flanagan MD Work Phone: [facility] 05-29-2023 16:09-0500 Heart rate 95 /min Hayden Flanagan MD Work Phone: [facility] 05-29-2023 16:09-0500 SaO2% (BldA) [Mass fraction] 96 % Hayden Flanagan MD Work Phone: [facility] 05-29-2023 16:09-0500 Systolic blood pressure 135 mm[Hg] Hayden Flanagan MD Work Phone: [facility] 01-31-2023 10:40-0400 SaO2% (BldA) [Mass fraction] 97 % Pacc 2 Work Phone: [facility] 01-31-2023 09:43-0400 Body height 152.4 cm Pacc 2 Work Phone: [facility] 01-31-2023 09:43-0400 Body temperature 97.59 [degF] Pacc 2 Work Phone: [facility] 01-31-2023 09:43-0400 Body weight 94.44 kg Pacc 2 Work Phone: [facility] 01-31-2023 09:43-0400 Diastolic blood pressure 69 mm[Hg] Pacc 2 Work Phone: [facility] 01-31-2023 09:43-0400 Heart rate 81 /min Pacc 2 Work Phone: [facility] 01-31-2023 09:43-0400 Respiratory rate 17 /min Pacc 2 Work Phone: [facility] 01-31-2023 09:43-0400 Systolic blood pressure 142 mm[Hg] Pacc 2 Work Phone: [facility] 11-26-2022 13:34-0400 Diastolic blood pressure 65 mm[Hg] Leydi Vance MD Work Phone: [facility] 11-26-2022 13:34-0400 Heart rate 81 /min Leydi Vance MD Work Phone: [facility] 11-26-2022 13:34-0400 Systolic blood pressure 125 mm[Hg] Leydi Vance MD Work Phone: [facility] 11-13-2022 14:02-0400 Diastolic blood pressure 72 mm[Hg] Shorty Teresa MD Work Phone: [facility] 11-13-2022 14:02-0400 Heart rate 88 /min Shorty Teresa MD Work Phone: [facility] 11-13-2022 14:02-0400 Respiratory rate 16 /min Shorty Teresa MD Work Phone: [facility] 11-13-2022 14:02-0400 SaO2% (BldA) [Mass fraction] 96 % Shorty Teresa MD Work Phone: [facility] 11-13-2022 14:02-0400 Systolic blood pressure 138 mm[Hg] Shorty Teresa MD Work Phone: [facility] 09-12-2022 16:15-0500 Body height 152.4 cm Hayden Flanagan MD Work Phone: [facility] 09-12-2022 16:15-0500 Body weight 92.44 kg Hayden Flanagan MD Work Phone: [facility] 09-12-2022 16:15-0500 Diastolic blood pressure 75 mm[Hg] Hayden Flanagan MD Work Phone: [facility] 09-12-2022 16:15-0500 Heart rate 87 /min Hayden Flanagan MD Work Phone: [facility] 09-12-2022 16:15-0500 SaO2% (BldA) [Mass fraction] 97 % Hayden Flanagan MD Work Phone: [facility] 09-12-2022 16:15-0500 Systolic blood pressure 135 mm[Hg] Hayden Flanagan MD Work Phone: [facility] 08-17-2022 15:34-0500 Body height 152.4 cm Blayne Roldan PA-C Work Phone: [facility] 08-17-2022 15:34-0500 Body temperature 97.59 [degF] Blayne Roldan PA-C Work Phone: [facility] 08-17-2022 15:34-0500 Body weight 89.36 kg Blayne Roldan PA-C Work Phone: [facility] 08-17-2022 15:34-0500 Diastolic blood pressure 68 mm[Hg] Blayne Roldan PA-C Work Phone: [facility] 08-17-2022 15:34-0500 Heart rate 104 /min Blayne Roldan PA-C Work Phone: [facility] 08-17-2022 15:34-0500 Respiratory rate 16 /min Blayne Roldan PA-C Work Phone: [facility] 08-17-2022 15:34-0500 SaO2% (BldA) [Mass fraction] 97 % Blayne Roldan PA-C Work Phone: [facility] 08-17-2022 15:34-0500 Systolic blood pressure 144 mm[Hg] Blayne Roldan PA-C Work Phone: [facility] 08-13-2022 16:03-0500 Diastolic blood pressure 78 mm[Hg] Shorty Teresa MD Work Phone: [facility] 08-13-2022 16:03-0500 Systolic blood pressure 138 mm[Hg] Shorty Teresa MD Work Phone: [facility] 08-13-2022 15:16-0500 Body weight 89.45 kg Shorty Teresa MD Work Phone: [facility] 08-13-2022 15:16-0500 Heart rate 91 /min Shorty Teresa MD Work Phone: [facility] 08-13-2022 15:16-0500 Respiratory rate 18 /min Shorty Teresa MD Work Phone: [facility] 08-13-2022 15:16-0500 SaO2% (BldA) [Mass fraction] 97 % Shorty Teresa MD Work Phone: [facility] 07-26-2022 18:35-0500 Body temperature 98.01 [degF] Donnell Braden MD Work Phone: [facility] 07-26-2022 18:35-0500 Body weight 84.37 kg Donnell Braden MD Work Phone: [facility] 07-26-2022 18:35-0500 Diastolic blood pressure 84 mm[Hg] Donnell Braden MD Work Phone: [facility] 07-26-2022 18:35-0500 Heart rate 62 /min Donnell Braden MD Work Phone: [facility] 07-26-2022 18:35-0500 Respiratory rate 18 /min Donnell Braden MD Work Phone: [facility] 07-26-2022 18:35-0500 SaO2% (BldA) [Mass fraction] 95 % Donnell Braden MD Work Phone: [facility] 07-26-2022 18:35-0500 Systolic blood pressure 138 mm[Hg] Donnell Braden MD Work Phone: [facility] 07-09-2022 18:01-0500 Body temperature 97.81 [degF] Elly Athy PA-C Work Phone: [facility] 07-09-2022 18:01-0500 Body weight 84.37 kg Elly Athy PA-C Work Phone: [facility] 07-09-2022 18:01-0500 Diastolic blood pressure 86 mm[Hg] Elly Athy PA-C Work Phone: [facility] 07-09-2022 18:01-0500 Heart rate 89 /min Elly Athy PA-C Work Phone: [facility] 07-09-2022 18:01-0500 Respiratory rate 20 /min Elly Athy PA-C Work Phone: [facility] 07-09-2022 18:01-0500 SaO2% (BldA) [Mass fraction] 95 % Elly Athy PA-C Work Phone: [facility] 07-09-2022 18:01-0500 Systolic blood pressure 158 mm[Hg] Elly Athy PA-C Work Phone: [facility] 12-05-2021 19:23-0400 Body weight 83.83 kg Shorty Teresa MD Work Phone: [facility] 12-05-2021 19:23-0400 Diastolic blood pressure 58 mm[Hg] Shorty Teresa MD Work Phone: [facility] 12-05-2021 19:23-0400 Heart rate 80 /min Shorty Teresa MD Work Phone: [facility] 12-05-2021 19:23-0400 Respiratory rate 18 /min Shorty Teresa MD Work Phone: [facility] 12-05-2021 19:23-0400 SaO2% (BldA) [Mass fraction] 96 % Shorty Teresa MD Work Phone: [facility] 12-05-2021 19:23-0400 Systolic blood pressure 110 mm[Hg] Shorty Teresa MD Work Phone: [facility] Encounters Encounter Date Encounter Type Care Provider Facility Start: 07-23-2023 End: 07-24-2023 ambulatory SHORTY TERESA Facility:[facility] Start: 06-19-2023 End: 06-20-2023 ambulatory SHORTY TERESA Facility:[facility] Start: 06-19-2023 End: 06-19-2023 Patient encounter procedure Kassandra Podlogthomas TOP FLAVOR ATTENDANT.WHITE MIXING OPERATOR Work Phone: [facility] Procedures Date Procedure Procedure Detail Performing Clinician Start: 06-19-2023 [employer] COVI D-19 VACCINE (2022- SEASON) AGE 12+ YR Kassandra Reidlogthomas TOP FLAVOR ATTENDANT.WHITE MIXING OPERATOR Work Phone: Start: 05-29-2023 INFLUENZA VACCINE, P RSV FREE, AGE 65+ YR, HIGH DOSE, QUADRIVALENT (FLUZONE HIGH-DOSE) Hayden Flanagan MD Work Phone: Start: 05-16-2023 Screening mammograph y bi 2-view breast inc cad Shorty Teresa MD Work Phone: Start: 01-31-2023 Parathyroid imaging w/tomographic spect & ct Leydi Vance MD Work Phone: Start: 01-03-2023 Arthrocentesis aspir &/inj major jt/bursa w/o Arnol Jonas MD Work Phone: Start: 08-17-2022 Culture bacterial quanttative colony count urine Blayne Roldan PA-C Work Phone: Start: 08-17-2022 Urnls dip stick/tabl et rgnt auto w/o microscopy Blayne Roldan PA-C Work Phone: Start: 07-26-2022 Culture bacterial quanttative colony count urine Donnell Braden MD Work Phone: Start: 07-26-2022 Urnls dip stick/tabl et rgnt auto w/o microscopy Keesha Glasgowgs TOP FLAVOR ATTENDANT.WHITE MIXING OPERATOR Work Phone: Start: 07-09-2022 Urnls dip stick/tabl et rgnt auto w/o microscopy Ericka James TOP FLAVOR ATTENDANT.WHITE MIXING OPERATOR Work Phone: Start: 04-26-2022 Mammography Mammograph y Coordinator Start: 02-07-2022 Us abdominal real ti me w/image limited Shorty Teresa MD Work Phone: Start: 01-31-2022 Lipid 1996 panel - S prince or Plasma Shorty Teresa MD Work Phone: Start: 05-18-2021 Mammography Miguel Teresa MD Work Phone: Start: 03-17-2021 Adult depression scr eening assessment Shorty Teresa MD Work Phone: Start: 02-24-2015 Colonoscopy Miguel Teresa MD Work Phone: Plan of Treatment Date Care Activity Detail Author Start: 01-31-2027 Lipid 1996 panel - S prince or Plasma Lipid Screening [facility] Start: 01-31-2027 LIPID SCREEN LIPID SCREEN [facility] Start: 10-09-2026 Urine microalbumin profile [facility] Start: 01-31-2026 DIABETES SCREEN DIABETES SCREEN [facility] Start: 01-31-2026 Diabetes Screening Diabetes Screenin g [facility] Start: 09-21-2025 DIABETES SCREEN DIABETES SCREEN [facility] Start: 09-05-2025 DIABETES SCREEN DIABETES SCREEN [facility] Start: 08-13-2025 DIABETES SCREEN DIABETES SCREEN [facility] Start: 04-12-2025 DIABETES SCREEN DIABETES SCREEN [facility] Start: 02-24-2025 Colonoscopy COLONOSCOPY [facility] Start: 02-24-2025 COLORECTAL CANCER SCREENING COLORECTAL CANCER SCREENING [facility] Start: 01-31-2025 DIABETES SCREEN DIABETES SCREEN [facility] Start: 09-11-2024 DIABETES SCREEN DIABETES SCREEN [facility] Start: 08-27-2024 LIPID SCREEN LIPID SCREEN [facility] Start: 02-13-2024 SHINGRIX VACCINE (1 of 2) VEGA GRIX VACCINE (1 of 2) [facility] Immunizations Immunization Date Immunization Notes Care Provider Feliciano chin 06-19-2023 COVID-19 vaccine, ag e 12+ yr, season (PFIZER-BIONTECH) Kassandra Sharma APRN.WHITE MIXING OPERATOR Work Phone: [facility] 05-29-2023 influenza (HD-IIV4) vaccine, age 65+ yr, high dose, quadrivalent, PF (FLUZONE HIGH-DOSE) Hayden Flanagan MD Work Phone: [facility] 02-12-2023 COVID-19 vaccine, ag e 12+ yr, bivalent (PFIZER-BIONTECH) Leydi Vance MD Work Phone: [facility] 05-10-2022 influenza (HD-IIV4) vaccine, age 65+ yr, high dose, quadrivalent, PF (FLUZONE HIGH-DOSE) Shorty Teresa MD Work Phone: [facility] 05-10-2022 influenza virus vaccine, unspecified formulation Shorty Teresa MD Work Phone: [facility] 04-19-2021 influenza, high-dose , quadrivalent vaccine (FLUZONE HIGH DOSE QUADRIVALENT) Shorty Teresa MD Work Phone: [facility] 05-12-2020 influenza, high-dose , quadrivalent vaccine (FLUZONE HIGH DOSE QUADRIVALENT) Shorty Teresa MD Work Phone: [facility] 07-02-2019 influenza, high dose seasonal, preservative-free Shorty Teresa MD Work Phone: [facility] 04-23-2018 influenza, seasonal, injectable, preservative free hSorty Teresa MD Work Phone: [facility] Work Phone: 03-26-2018 influenza, high dose seasonal, preservative-free Shorty Teresa MD Work Phone: [facility] 03-30-2017 influenza, high dose seasonal, preservative-free Shorty Teresa MD Work Phone: [facility] 10-09-2016 tetanus toxoid, redu donna diphtheria toxoid, and acellular pertussis vaccine, adsorbed Shorty Teresa MD Work Phone: [facility] 05-08-2016 pneumococcal polysaccharide vaccine, 23 valent Shorty Teresa MD Work Phone: [facility] 04-13-2016 influenza, high dose seasonal, preservative-free Shorty Teresa MD Work Phone: [facility] 04-22-2015 influenza, high dose seasonal, preservative-free Shorty Teresa MD Work Phone: [facility] 09-07-2014 pneumococcal conjuga te vaccine, 13 valent Shorty Teresa MD Work Phone: [facility] 04-22-2010 pneumococcal polysaccharide vaccine, 23 valent Shorty Teresa MD Work Phone: [facility] 08-05-2006 TD(adult) unspecifie d formulation Shorty Teresa MD Work Phone: [facility] 08-05-2006 tetanus and diphther ia toxoids, adsorbed, preservative free, for adult use (2 Lf of tetanus toxoid and 2 Lf of diphtheria toxoid) Shorty Teresa MD Work Phone: [facility] 07-18-1998 diphtheria and tetan us toxoids, adsorbed for pediatric use Shorty Teresa MD Work Phone: [facility] Work Phone: Payers Date Payer Category Payer Medicaid [employer] MEDICAID [facility] MEDICAID [id number] 2019-Present [phone] [address] [place], [place] [address] Medicaid [id number] 2019 Medicaid UHC MEDICAID [facility] ARE [facility] MEDICAID [id number] 2019-Present [phone] [address] [place] [address] Medicaid [id number] 2019 Medicaid [id number] 2017 Medicare [facility] MEDICARE [facility] DUAL COMPLETE HMO SNP [id number] 2017-Present [phone] [address] [place] [address] Medicare [id number] 2017 Medicare [id number] 2017 Unknown [id number] Social History Date Type Detail Facility Start: 02-07-2012 Tobacco smoking stat [facility] Never smoked tobacco [facility] Start: 12-05-2021 End: 06-19-2023 Alcohol intake Current non-drinker of alcohol (finding) [facility] Start: 1950 Sex Assigned At Not on file [facility] Start: 11-24-2021 End: 04-26-2022 Exposure to SARS-CoV-2 (event) Not sure [facility] Work Phone: Start: 02-07-2012 Tobacco use and exposure Smokeless tobacco non-user [facility] Start: 11-26-2022 End: 01-31-2023 History of Social function [facility] Work Phone: Start: 11-26-2022 End: 01-31-2023 Tobacco use panel [facility] Work Phone: Adult Depression Screening Assessment 0 [facility] Work Phone: Medical Equipment Procedure Code Equipment Code Equipment Origin al Text Equipment Identifier Dates Reymundo Bn Smpx P Ra dpq Fd Strl - [id number] Start: 03-17-2014 Bassam-C Ale G ast W/Disect - [id number] Start: 04-21-2010 Clinical Notes 10-11-2017 to 07-23-2023 Kassandra Sharma, TOP FLAVOR ATTENDANT.WHITE MIXING OPERATOR - 06/19/2023 1:48 PM ESTPatient Hayden Jenkins MD - 05/29/2023 4:11 PM ESTLetter - Coordinator, Mammography - 05/17/2023 11:15 AM EDT Note Date & Type Note Facility 07-23-2023 Note HNO ID: [id number] Author: Pastora Bell RT(R) Service: Radiology Author Type: Technologist Type: Progress Notes Filed: 07/23/2023 7:30 PM Note Text: Radiology Service Progress Note PATIENT NAME: Janay Frederick DATE OF SERVICE: July 23, 2023 TIME: 7:16 PM PATIENT IDENTITY VERIFICATION COMPLETED USING TWO (2) IDENTIFIERS: Name and Date of confirmed by patient verbally. FALL SCREENING: Has the patient had 2 falls in the last year or 1 fall with injury or currently using an Ambulatory Assistive Device (Walker, Cane, Wheelchair, Crutches, etc.)? Yes, Patient High Risk for Falls What interventions were put in place to prevent falls during this visit? Instructed Patient to Call for Help if Needed, Offered Assistance with Transfers/Clothing, and Increased Observations by Caregivers PATIENT GENDER DATA: Female. status: : No status: NO. PATIENT RELEVANT IMPLANT DATA REVIEWED: Yes RADIOLOGY DEPARTMENT: General X-ray: Exam(s) Completed: Chest X-Ray PERIPHERAL IV DATA: Not applicable SIGNED BY: RT Debbi(R) July 23, 2023 7:[address] [facility] 07-23-2023 Note HNO ID: [id number] Author: Shorty Teresa MD Service: ? Author Type: Physician Type: Progress Notes Filed: 07/23/2023 7:09 PM Note Text: Chief Complaint Patient presents with: URI: Cough, nasal congestion and headache since 07/18/23 Throat Problem: Reports she was out to dinner Saturday and began experiencing swallowing issue like before- like a tightening in her throat. HPI Janay Frederick is a 73 year old female who presents here today for Above Complaints. Patient complaining of nasal congestion, wet cough without production, headache which started 5 days ago. Cough worse at night. Treating with mucinex cough syrup without improvement in her cough and excedrin or vicodin for headache. Denies fever/chills, SOB, chest congestion, sore throat, myalgias, fatigue, new loss of taste/smell, rhinorrhea, nausea, vomiting, diarrhea. Has not tested for COVID. No sick contacts in the last 2 weeks. Feels like symptoms are gradually worsening. Also notes heartburn despite taking her Prilosec as prescribed. Denies dysphagia or odynophagia. Past medical history, appointments, medications, allergies reviewed. Previous Medical History PAST MEDICAL HISTORY Diagnosis Date BCC (basal cell carcinoma of skin) Chronic lower back pain Dr. Nur Gastric band slippage Dr. Garcia, removed 11/06 Gastric ulcer, unspecified as acute or chronic, without mention of hemorrhage or perforation, with obstruction Generalized osteoarthrosis, unspecified site back GERD (gastroesophageal reflux disease) Hyperparathyroidism (HCC) s/p parathyroidectomy 02/08/2023 Insomnia Knee pain, chronic Lumbago Migraine without aura on diltiazem Obesity, unspecified stated BMI 40.5 HT: 61.5 WT: 220 Osteopenia of multiple sites Overactive bladder Personal history of unspecified urinary disorder years ago since last bladder infection SCC (squamous cell carcinoma) Stroke (HCC) 12/06/1981 cva left side residual, young at age 31, likely 2/2 OCPs Unspecified hemorrhoids without mention of complication Hemorrhoids Urinary urgency Uterine prolapse s/p hysterectomy Venous incompetence bilaterally, f/u Dr. Maravilla Vitamin D deficiency Previous Surgical History PAST SURGICAL HISTORY Procedure Laterality Date ARTHRP KNE CONDYLEANDPLATU MEDIALANDLAT COMPARTMENTS Left 03/17/2014 Knee replacement, total left COLONOSCOPY FLX DX W/COLLJ SPEC WHEN PFRMD 02/08/2005 Colonoscopy COLONOSCOPY FLX DX W/COLLJ SPEC WHEN PFRMD 02/24/15 Colonoscopy EGD DILATION GASTRIC/DUODENAL STRICTURE 12/20/09 ESOPHAGOGASTRODUODENOSCOPY TRANSORAL DIAGNOSTIC 11/27/13 EGD HYSTERECTOMY 10/2107 pelvic organ prolapse LAPAROSCOPY SURG CHOLECYSTECTOMY 2004 Cholecystectomy, lap LAPS GASTRIC RESTRICTIVE PROCEDURE PLACE DEVICE 04/21/2010 Performed by THI ALCOCER at [facility] LAPS RPR PARAESPHGL HRNA INCL FUNDPLSTY W/O MESH 04/21/2010 Performed by THI ALCOCER at [facility] MAL LESION FACE,EAR,EYEL 1.1-2CM 01/28/06 Left cheek and right forearm lesions PAST SURGICAL HISTORY OF July 06, 2009 Hysteroscopy DANTX PAST SURGICAL HISTORY OF 10/2017 vaginal vault suspension PAST SURGICAL HISTORY OF 10/2017 Lap band removed UNLIS LAPAROSCOPIC PROCEDURE LIVER 04/21/2010 Performed by THI ALCOCER at [facility] Family History FAMILY HISTORY Problem Relation Age of Onset Hypertension Mother Diabetes Mother Breast Cancer Mother Heart Mother a fib Diabetes Father Heart Father angioplasty Blood Disease Brother Hairy Cell Leukemia Prostate Cancer Brother Blood Disease Maternal Grandmother Leukemia None Brother Hypertension Maternal Uncle Prostate Cancer Maternal Uncle Hypertension Maternal Aunt Patient Allergies ALLERGIES Allergen Reactions Flagyl [Metronidazo* GI Upset Severe nausea, malaise, dizziness Hctz [Thiazides] Other: See Comments hypercalcemia Current Medications Current Outpatient Medications on File Prior to Visit Medication Sig furosemide (LASIX) 40 mg tablet Take 1 tablet by mouth once daily. gabapentin (NEURONTIN) 300 mg capsule Take 1 capsule by mouth once daily for 90 days. COMPRESSION HOSIERY KNEE LENGTH, AD, 30-40 MMHG once daily. omeprazole (PRILOSEC) 40 mg capsule Take 1 capsule by mouth once daily. tolterodine ER (DETROL LA) 4 mg 24 hr capsule Take 1 capsule by mouth once daily. atorvastatin (LIPITOR) 10 mg tablet Take 1 tablet by mouth once daily. Discontinue simvastatin potassium chloride (K-TAB) 10 mEq tablet Take 1 tablet by mouth once daily. amitriptyline (ELAVIL) 75 mg tablet Take 1 tablet by mouth daily at bedtime. hydrocortisone 2.5 % ointment Apply to affected area twice daily as needed (hemorrhoids). acetaminophen (TYLENOL) 500 mg tablet Take 1 tablet by mouth every 6 hours as needed for pain. dilTIAZem CD (CARTIA XT) 300 mg 24 hr capsule Take 1 capsule by mouth once daily. HYDROcodone-a (more content not included)... [facility] 06-19-2023 Note HNO ID: [id number] Author: Kassandra Sharma APRN.LENA Service: ? Author Type: Nurse Practitioner Type: Progress Notes Filed: 06/19/2023 3:37 PM Note Text: 06/19/2023 Patient presents with: Follow Up: 4 month follow up SUBJECTIVE: This is a 73 year old that is here today for Above Complaints. Since last office visit hs been in good health without ER visits or hospitalizations. No falls since last office visit Hyperparathyroidism: Follows with Dr. Flanagan with last office visit on 06/08/2023. No medication changes at this time. OA bladder: taking Detrol as prescribed without side effects. Less frequency during the day. Reports still gets up at night some. Occasional urge incontinence GERD: taking Prilosec as prescribed. Does have to take Rolaids at times which will help Migraines: taking amitriptyline and diltiazem as prescribed without side effects. Works well to control symptoms. Amitriptyline also helps with insomnia Chronic low back pain: Sees Dr. Ashley. Taking gabapentin as prescribed without side effects. Not sure it really helps or not but would like to continue taking HYPERLIPIDEMIA: Patient is taking medications: Yes. Patient is watching diet: Yes. Patient denies myalgias: Yes. Patient denies gi upset: Yes Requesting prescription for new pair of copression hose for leg swelling. No worsening in swelling. Taking lasix as prescribed PAST MEDICAL HISTORY Diagnosis Date BCC (basal cell carcinoma of skin) Chronic lower back pain Dr. Nur Gastric band slippage Dr. Garcia, removed 11/06 Gastric ulcer, unspecified as acute or chronic, without mention of hemorrhage or perforation, with obstruction Generalized osteoarthrosis, unspecified site back GERD (gastroesophageal reflux disease) Hyperparathyroidism (HCC) s/p parathyroidectomy 02/08/2023 Insomnia Knee pain, chronic Lumbago Migraine without aura on diltiazem Obesity, unspecified stated BMI 40.5 HT: 61.5 WT: 220 Osteopenia of multiple sites Overactive bladder Personal history of unspecified urinary disorder years ago since last bladder infection SCC (squamous cell carcinoma) Stroke ([facility]) 12/06/1981 cva left side residual, young at age 31, likely 2/2 OCPs Unspecified hemorrhoids without mention of complication Hemorrhoids Urinary urgency Uterine prolapse s/p hysterectomy Venous incompetence bilaterally, f/u Dr. Maravilla Vitamin D deficiency ALLERGIES Flagyl [Metronidazole] and Hctz [Thiazides] MEDICATIONS Current Outpatient Medications Medication Sig gabapentin (NEURONTIN) 300 mg capsule Take 1 capsule by mouth once daily for 90 days. omeprazole (PRILOSEC) 40 mg capsule Take 1 capsule by mouth once daily. tolterodine ER (DETROL LA) 4 mg 24 hr capsule Take 1 capsule by mouth once daily. atorvastatin (LIPITOR) 10 mg tablet Take 1 tablet by mouth once daily. Discontinue simvastatin potassium chloride (K-TAB) 10 mEq tablet Take 1 tablet by mouth once daily. amitriptyline (ELAVIL) 75 mg tablet Take 1 tablet by mouth daily at bedtime. hydrocortisone 2.5 % ointment Apply to affected area twice daily as needed (hemorrhoids). acetaminophen (TYLENOL) 500 mg tablet Take 1 tablet by mouth every 6 hours as needed for pain. jbwsjji-ipduofecz-jdypmoj D3 500 mg-5 mcg (200 unit) per tablet Take 1 tablet by mouth three times daily. dilTIAZem CD (CARTIA XT) 300 mg 24 hr capsule Take 1 capsule by mouth once daily. furosemide (LASIX) 40 mg tablet Take 1 tablet by mouth once daily. zoledronic acid (RECLAST) 5 mg/100 mL pgbk PREMIX piggyback Inject 100 mL intravenously one time only for 1 dose. HYDROcodone-acetaminophen (NORCO) 5-325 mg per tablet Take 3 tablets by mouth as needed. docusate sodium (COLACE) 100 mg capsule Take 1 capsule by mouth twice daily. cholecalciferol (VITAMIN D3) 50 mcg (2,000 unit) tablet Take 2,000 Units by mouth once daily. multivitamin tablet Take 1 tablet by mouth once daily. No current facility-administered medications for this visit. Medications and allergies reviewed by this provider. SOCIAL HISTORY Social History Tobacco Use Smoking status: Never Smokeless tobacco: Never Vaping Use Vaping Use: Never used Substance Use Topics Alcohol use: No Drug use: No REVIEW OF SYSTEMS All other reviewed and negative other than HPI. OBJECTIVE: BP 136/80 Pulse 90 Resp 18 Wt 93 kg (205 lb) SpO2 91% BMI 40.04 kg/m? . Vital signs reviewed by this provider. APPEARANCE Well appearing, alert, in no acute distress, well-hydrated, well nourished. EYES conjunctiva and sclera normal. HEART RRR with normal S1 and S2, no murmurs, no gallops, no JVD appreciated LUNG clear to auscultation. No wheezes, rhonchi or rales EXTREMITIES Extremities normal, No deformities, No skin discoloration, and No edema SKIN Skin color, texture, turgor normal, no suspicious rashes or lesions Component Latest Ref Rng AND Units 01/31/2023 (more content not included)... [facility] 06-19-2023 History of Present illness Narrative 06/19/2023 Patient presents with: Follow Up: 4 month follow up SUBJECTIVE: This is a 73 year old that is here today for Above Complaints. Since last office visit hs been in good health without ER visits or hospitalizations. No falls since last office visit Hyperparathyroidism: Follows with Dr. Flanagan with last office visit on 06/08/2023. No medication changes at this time. OA bladder: taking Detrol as prescribed without side effects. Less frequency during the day. Reports still gets up at night some. Occasional urge incontinence GERD: taking Prilosec as prescribed. Does have to take Rolaids at times which will help Migraines: taking amitriptyline and diltiazem as prescribed without side effects. Works well to control symptoms. Amitriptyline also helps with insomnia Chronic low back pain: Sees Dr. Ashley. Taking gabapentin as prescribed without side effects. Not sure it really helps or not but would like to continue taking HYPERLIPIDEMIA: Patient is taking medications: Yes. Patient is watching diet: Yes. Patient denies myalgias: Yes. Patient denies gi upset: Yes Requesting prescription for new pair of copression hose for leg swelling. No worsening in swelling. Taking lasix as prescribed PAST MEDICAL HISTORY Diagnosis Date BCC (basal cell carcinoma of skin) Chronic lower back pain Dr. Nur Gastric band slippage Dr. Garcia, removed 11/06 Gastric ulcer, unspecified as acute or chronic, without mention of hemorrhage or perforation, with obstruction Generalized osteoarthrosis, unspecified site back GERD (gastroesophageal reflux disease) Hyperparathyroidism (HCC) s/p parathyroidectomy 02/08/2023 Insomnia Knee pain, chronic Lumbago Migraine without aura on diltiazem Obesity, unspecified stated BMI 40.5 HT: 61.5 WT: 220 Osteopenia of multiple sites Overactive bladder Personal history of unspecified urinary disorder years ago since last bladder infection SCC (squamous cell carcinoma) Stroke (HCC) 12/06/1981 cva left side residual, young at age 31, likely 2/2 OCPs Unspecified hemorrhoids without mention of complication Hemorrhoids Urinary urgency Uterine prolapse s/p hysterectomy Venous incompetence bilaterally, f/u Dr. Maravilla Vitamin D deficiency ALLERGIES Flagyl [Metronidazole] and Hctz [Thiazides] MEDICATIONS Current Outpatient Medications Medication Sig gabapentin (NEURONTIN) 300 mg capsule Take 1 capsule by mouth once daily for 90 days. omeprazole (PRILOSEC) 40 mg capsule Take 1 capsule by mouth once daily. tolterodine ER (DETROL LA) 4 mg 24 hr capsule Take 1 capsule by mouth once daily. atorvastatin (LIPITOR) 10 mg tablet Take 1 tablet by mouth once daily. Discontinue simvastatin potassium chloride (K-TAB) 10 mEq tablet Take 1 tablet by mouth once daily. amitriptyline (ELAVIL) 75 mg tablet Take 1 tablet by mouth daily at bedtime. hydrocortisone 2.5 % ointment Apply to affected area twice daily as needed (hemorrhoids). acetaminophen (TYLENOL) 500 mg tablet Take 1 tablet by mouth every 6 hours as needed for pain. dmgygdm-ttnnwpnlg-kldzkpe D3 500 mg-5 mcg (200 unit) per tablet Take 1 tablet by mouth three times daily. dilTIAZem CD (CARTIA XT) 300 mg 24 hr capsule Take 1 capsule by mouth once daily. furosemide (LASIX) 40 mg tablet Take 1 tablet by mouth once daily. zoledronic acid (RECLAST) 5 mg/100 mL pgbk PREMIX piggyback Inject 100 mL intravenously one time only for 1 dose. HYDROcodone-acetaminophen (NORCO) 5-325 mg per tablet Take 3 tablets by mouth as needed. docusate sodium (COLACE) 100 mg capsule Take 1 capsule by mouth twice daily. cholecalciferol (VITAMIN D3) 50 mcg (2,000 unit) tablet Take 2,000 Units by mouth once daily. multivitamin tablet Take 1 tablet by mouth once daily. No current facility-administered medications for this visit. Medications and allergies reviewed by this provider. SOCIAL HISTORY Social History Tobacco Use Smoking status: Never Smokeless tobacco: Never Vaping Use Vaping Use: Never used Substance Use Topics Alcohol use: No Drug use: No REVIEW OF SYSTEMS All other reviewed and negative other than HPI. OBJECTIVE: BP 136/80 Pulse 90 Resp 18 Wt 93 kg (205 lb) SpO2 91% BMI 40.04 kg/m . Vital signs reviewed by this provider. APPEARANCE Well appearing, alert, in no acute distress, well-hydrated, well nourished. EYES conjunctiva and sclera normal. HEART RRR with normal S1 and S2, no murmurs, no gallops, no JVD appreciated LUNG clear to auscultation. No wheezes, rhonchi or rales EXTREMITIES Extremities normal, No deformities, No skin discoloration, and No edema SKIN Skin color, texture, turgor normal, no suspicious rashes or lesions Component Latest Ref Rng & Units 01/31/2023 WBC 3.70 - 11.00 k/uL 7.11 RBC 3.90 - 5.20 m/uL 4.74 Hemoglobin 11.5 - 15.5 g/dL 14.2 Hematocrit 36.0 - 46.0 % 45.4 MCV 80.0 - 100.0 fL 95.8 MCH 26.0 - 34.0 pg 30.0 MCHC 30.5 - 36.0 g/dL 31.3 RDW-CV 11.5 - 15.0 % 13.2 Platelet Count 150 - 400 k/uL 236 MPV 9.0 - 12.7 fL 11.0 Neut% % 58.3 Abs Neut (ANC) 1.45 - 7.50 k/uL 4.14 Lymph% % 28.0 Abs Lymph 1.00 - 4.00 k/uL 1.99 [place]% % 8.0 Abs [place] <0.87 k/uL 0.57 Eosin% % 4.2 Abs Eosin <0.46 k/uL 0.30 Baso% % 0.7 Abs Baso <0.11 k/uL 0.05 Immature Gran % % 0.8 IMMATURE GRANS (ABS) <0.10 k/uL 0.06 NRBC /100 WBC 0.0 Absolute nRBC <0.01 k/uL <0.01 DTYPE Auto Component Latest Ref Rng & Units 01/31/2023 Glucose 74 - 99 mg/dL 83 BUN 7 - 21 mg/dL 8 Creatinine 0.58 - 0.96 mg/dL 0.58 Sodium 136 - 144 mmol/L 141 Potassium 3.7 - 5.1 mmol/L 3.9 Chloride 97 - 105 mmol/L 102 CO2 22 - 30 mmol/L 27 Anion Gap 9 - 18 mmol/L 12 Calcium 8.5 - 10.2 mg/dL 10.6 (H) eGFR >=60 mL/min/1.73m 95 Component Latest Ref Rng & Units 01/31/2022 Total Cholesterol, Nonfasting <200 mg/dL 151 Triglycerides, Nonfasting <150 mg/dL 80 HDL Cholesterol, Nonfasting >39 mg/dL 79 LDL Cholesterol, Nonfasting <100 mg/dL 56 Non HDL Cholesterol, Nonfasting <130 mg/dL 72 VLDL Cholesterol, Nonfasting <30 mg/dL 16 Total Chol/HDL Ratio, Nonfasting <5.10 mg/dL 1.91 LDL/HDL Ratio, Nonfasting <2.54 mg/dL 0.71 RSV Vaccine(1 - 1-dose 60+ series) Never done Advance Directive Discussion Never done Shingrix Vaccine(1 of 2) due on 02/13/2024 Colorectal Cancer Screening due on 02/24/2025 Diabetes Screening due on 01/31/2026 DTaP,Tdap,Td Vaccine(5 - Td or Tdap) due on 10/09/2026 Lipid Screening due on 01/31/2027 Bone Density Screening Completed Influenza Vaccine Completed Hepatitis C Screening Completed Covid-19 Vaccine Completed Pneumococcal Vaccine: 65+ Completed Mammogram Screening Discontinued ASSESSMENT/PLAN: 1. Mixed hyperlipidemia - ICD9: 272.2, ICD10: E78.2 (primary diagnosis) - Control undetermined, due for labs - Continue current medications - Counseled on healthy diet and regular exercise - Discussed need for and benefit of weight loss. BMI 40.04 kg/(m^2) - Follow up in 4 months, sooner should any other issues arise. - LIPID PANEL BASIC - COMP METABOLIC PANEL 2. Immunization due - ICD9: V05.9, ICD10: Z23 - [employer] COVID-19 VACCINE (2022- [place]AS[place]) AGE 12+ YR 3. Leg swelling - ICD9: 729.81, ICD10: M79.89 - controlled with lasix and compression hose - COMPRESSION HOSIERY KNEE LENGTH (AD) 30-40 MMHG 4. Hyperparathyroidism (HCC) - ICD9: 252.00, ICD10: E21.3 - stable - follow-up with endocrinology as recommended 5. Migraine without aura and without status migrainosus, not intractable - ICD9: 346.10, ICD10: G43.009 - controlled on current regime 6. Gastroesophageal reflux disease, unspecified whether esophagitis present - ICD9: 530.81, ICD10: K21.9 - controlled on current regime 7. OAB (overactive bladder) - ICD9: 596.51, ICD10: N32.81 - stable on current regime 8. Obesity, Class III, BMI 40-49.9 (morbid obesity) (HCC) - ICD9: 278.01, ICD10: E66.01 Stable - Behavioral intervention - Lengthy discussion in office today regarding diet and exercise. Discussed use of small plate to eat meals from, drink 1 glass of water 10-15 minutes prior to eating meal, drink 8 glasses of water daily, eat fresh fruit and vegetable during meal first then lean protein such as grilled/baked chicken breast or fish, limit carbohydrate intake (less pasta, breads, rice and snack foods) as well as limiting sugars (desserts etc). Important to count / track your calories and exercise as well. Kassandra Sharma APRN.WHITE MIXING OPERATOR Prescription instructions reviewed with patient as applicable. Patient advised if symptoms do not improve or if symptoms worsen sooner, to contact their primary care physician. Potential red flag symptoms discussed with the patient. Reviewed appropriate action plan to take if red flag symptoms occur. Patient agreeable to treatment plan. I spent a total of 25 minutes on the date of the service which included preparing to see the patient, [id number] patient care, completing clinical documentation, obtaining and/or reviewing separately obtained history, performing a medically appropriate examination, counseling and educating the patient/family/caregiver, and ordering medications, tests, or procedures. documented in this encounter [facility] 05-29-2023 Note HNO ID: [id number] Author: Hayden Flanagan MD Service: ? Author Type: Physician Type: Progress Notes Filed: 05/29/2023 4:46 PM Note Text: ENDOCRINOLOGY CLINIC NOTE Reason for visit Janay Frederick is a pleasant 73 year old female with history of CVA, dyslipidemia, osteoporosis and OA presented for follow-up of hypercalcemia HPI She has had mild hypercalcemia intermittently since 2014, with the highest total corrected calcium being 11.2, and iCa 1.48. PTH was suppressed at 15 in 2014 (with calcium 11 and iCa 1.41), and was inappropriately normal at 37 (with calcium 11 and iCa 1.43) on05/08/2021. Her PTHrP is normal and her 1,25OH vitamin D is not elevated. SPEP showed no M spike She was on Trimterene in the past but it was stopped because the of the high calcium. She was taking calcium pills that had 600 mg twice a day for 15 years, but she stopped taking them sometime in 01/2021. She also takes tums for heartburn, 2 tums a day or every other day. She reported heartburn for the last 2 years and rare abdominal discomfort. No muscle pains, polyuria or polydipsia, and no history of kidney stones. Interval events: She underwent left lower parathyroidectomy by Dr. Vance in 01/2023. Had intraoperative PTH declined from 112 to 40. Pathology showed hypercellular left lower gland. Her calcium was 9.3 with PTH 46 in 02/2023 She takes calcium 500 mg + vitamin D 200 units twice a day Osteoporosis: DXA 08/2021: L spine T score 0.8 (stable) L TH T score -1.3 (stable) L FN T score -2.6 R TH T score -1.1 R FN T score -2.4 (decline) DXA 10/2018: L-spine T-score 0.7 (7% decline) L hip T score -1.2 (11% decline) L FN T-score -2.3 (stable) R hip T-score -1.1 (18.1% decline) R FN T-score -1.8 (12.4% decline) Fracture history: Lumbar compression fracture 15 years ago when she tripped and fell from a standing height. Thoracic compression fracture on DXA 2013 R wrist fracture 4-5 years ago when she fell from a standing height Treatment history (including any side effects/contraindications): Reclast x2 in 01/2021 and 09/2022 Family history of metabolic bone disease or fractures: None Risk factors: > Menstrual histor: - menarche: age 12-13 - last period:age 48 - periods were regular > Medication exposures/pertinent medical or social history: (Glucocorticoid, AED use, relevant medications, hyperthyroidism, kidney stone/disease, eating disorder, malabsorption, immobility, smoking, excessive alcohol use) She has limited mobility and uses a cane to ambulate to L sided weakness following the stroke Calcium/Vit D intake: Dietary calcium: yogurt and cheese occasionally Supplements: None Vitamin D intake: 2000 units daily Weight bearing exercise: Limited by the L sided weakness since the stroke Dental Procedure: She needs 2 teeth extraction but cost is an issue at the moment Radiation Exposure: None Past Medical History PAST MEDICAL HISTORY Diagnosis Date BCC (basal cell carcinoma of skin) Chronic lower back pain Dr. Nur Gastric band slippage Dr. Garcia, removed 11/06 Gastric ulcer, unspecified as acute or chronic, without mention of hemorrhage or perforation, with obstruction Generalized osteoarthrosis, unspecified site back GERD (gastroesophageal reflux disease) Hyperparathyroidism (HCC) s/p parathyroidectomy 02/08/2023 Insomnia Knee pain, chronic Lumbago Migraine without aura on diltiazem Obesity, unspecified stated BMI 40.5 HT: 61.5 WT: 220 Osteopenia of multiple sites Overactive bladder Personal history of unspecified urinary disorder years ago since last bladder infection SCC (squamous cell carcinoma) Stroke ([facility]) 12/06/1981 cva left side residual, young at age 31, likely 2/2 OCPs Unspecified hemorrhoids without mention of complication Hemorrhoids Urinary urgency Uterine prolapse s/p hysterectomy Venous incompetence bilaterally, f/u Dr. Maravilla Vitamin D deficiency Past Surgical History PAST SURGICAL HISTORY Procedure Laterality Date ARTHRP KNE CONDYLEANDPLATU MEDIALANDLAT COMPARTMENTS Left 03/17/2014 Knee replacement, total left COLONOSCOPY FLX DX W/COLLJ SPEC WHEN PFRMD 02/08/2005 Colonoscopy COLONOSCOPY FLX DX W/COLLJ SPEC WHEN PFRMD 02/24/15 Colonoscopy EGD DILATION GASTRIC/DUODENAL STRICTURE 12/20/09 ESOPHAGOGASTRODUODENOSCOPY TRANSORAL DIAGNOSTIC 11/27/13 EGD HYSTERECTOMY 10/2107 pelvic organ prolapse LAPAROSCOPY SURG CHOLECYSTECTOMY 2004 Cholecystectomy, lap LAPS GASTRIC RESTRICTIVE PROCEDURE PLACE DEVICE 04/21/2010 Performed by THI ALCOCER at [facility] LAPS RPR PARAESPHGL HRNA INCL FUNDPLSTY W/O MESH 04/21/2010 Performed by THI ALCOCER at [facility] MAL LESION FACE,EAR,EYEL 1.1-2CM 01/28/06 Left cheek and right forearm lesions PAST SURGICAL HISTORY OF July 06, 2009 Hysteroscopy [facility] PAST SURGICAL HISTORY OF 10/2017 vaginal vault suspension PAST SURGICAL HIST (more content not included)... [facility] 05-29-2023 Instructions Hayden Flanagan MD - 05/29/2023 4:26 PM EST - Continue the current calcium and vitamin D intake - Blood tests in July as planned - Repeat bone density scan on or after 09/12/2023 - I will see you in October 2023 and will decide on the Reclast infusion documented [facility] encounter [facility] 05-29-2023 History of Present illness Narrative ENDOCRINOLOGY CLINIC NOTE Reason for visit Janay Frederick is a pleasant 73 year old female with history of CVA, dyslipidemia, osteoporosis and OA presented for follow-up of hypercalcemia HPI She has had mild hypercalcemia intermittently since 2014, with the highest total corrected calcium being 11.2, and iCa 1.48. PTH was suppressed at 15 in 2014 (with calcium 11 and iCa 1.41), and was inappropriately normal at 37 (with calcium 11 and iCa 1.43) on05/08/2021. Her PTHrP is normal and her 1,25OH vitamin D is not elevated. SPEP showed no M spike She was on Trimterene in the past but it was stopped because the of the high calcium. She was taking calcium pills that had 600 mg twice a day for 15 years, but she stopped taking them sometime in 01/2021. She also takes tums for heartburn, 2 tums a day or every other day. She reported heartburn for the last 2 years and rare abdominal discomfort. No muscle pains, polyuria or polydipsia, and no history of kidney stones. Interval events: She underwent left lower parathyroidectomy by Dr. Vance in 01/2023. Had intraoperative PTH declined from 112 to 40. Pathology showed hypercellular left lower gland. Her calcium was 9.3 with PTH 46 in 02/2023 She takes calcium 500 mg + vitamin D 200 units twice a day Osteoporosis: DXA 08/2021: L spine T score 0.8 (stable) L TH T score -1.3 (stable) L FN T score -2.6 R TH T score -1.1 R FN T score -2.4 (decline) DXA 10/2018: L-spine T-score 0.7 (7% decline) L hip T score -1.2 (11% decline) L FN T-score -2.3 (stable) R hip T-score -1.1 (18.1% decline) R FN T-score -1.8 (12.4% decline) Fracture history: Lumbar compression fracture 15 years ago when she tripped and fell from a standing height. Thoracic compression fracture on DXA 2013 R wrist fracture 4-5 years ago when she fell from a standing height Treatment history (including any side effects/contraindications): Reclast x2 in 01/2021 and 09/2022 Family history of metabolic bone disease or fractures: None Risk factors: > Menstrual histor: - menarche: age 12-13 - last period:age 48 - periods were regular > Medication exposures/pertinent medical or social history: (Glucocorticoid, AED use, relevant medications, hyperthyroidism, kidney stone/disease, eating disorder, malabsorption, immobility, smoking, excessive alcohol use) She has limited mobility and uses a cane to ambulate to L sided weakness following the stroke Calcium/Vit D intake: Dietary calcium: yogurt and cheese occasionally Supplements: None Vitamin D intake: 2000 units daily Weight bearing exercise: Limited by the L sided weakness since the stroke Dental Procedure: She needs 2 teeth extraction but cost is an issue at the moment Radiation Exposure: None Past Medical History PAST MEDICAL HISTORY Diagnosis Date BCC (basal cell carcinoma of skin) Chronic lower back pain Dr. Nur Gastric band slippage Dr. Garcia, removed 11/06 Gastric ulcer, unspecified as acute or chronic, without mention of hemorrhage or perforation, with obstruction Generalized osteoarthrosis, unspecified site back GERD (gastroesophageal reflux disease) Hyperparathyroidism ([facility]) s/p parathyroidectomy 02/08/2023 Insomnia Knee pain, chronic Lumbago Migraine without aura on diltiazem Obesity, unspecified stated BMI 40.5 HT: 61.5 WT: 220 Osteopenia of multiple sites Overactive bladder Personal history of unspecified urinary disorder years ago since last bladder infection SCC (squamous cell carcinoma) Stroke ([facility]) 12/06/1981 cva left side residual, young at age 31, likely 2/2 OCPs Unspecified hemorrhoids without mention of complication Hemorrhoids Urinary urgency Uterine prolapse s/p hysterectomy Venous incompetence bilaterally, f/u Dr. Maravilla Vitamin D deficiency Past Surgical History PAST SURGICAL HISTORY Procedure Laterality Date ARTHRP KNE CONDYLE&PLATU MEDIAL&LAT COMPARTMENTS Left 03/17/2014 Knee replacement, total left COLONOSCOPY FLX DX W/COLLJ SPEC WHEN PFRMD 02/08/2005 Colonoscopy COLONOSCOPY FLX DX W/COLLJ SPEC WHEN PFRMD 02/24/15 Colonoscopy EGD DILATION GASTRIC/DUODENAL STRICTURE 12/20/09 ESOPHAGOGASTRODUODENOSCOPY TRANSORAL DIAGNOSTIC 11/27/13 EGD HYSTERECTOMY 10/2107 pelvic organ prolapse LAPAROSCOPY SURG CHOLECYSTECTOMY 2004 Cholecystectomy, lap LAPS GASTRIC RESTRICTIVE PROCEDURE PLACE DEVICE 04/21/2010 Performed by THI ALCOCER at [facility] LAPS RPR PARAESPHGL HRNA INCL FUNDPLSTY W/O MESH 04/21/2010 Performed by THI ALCOCER at [facility] MAL LESION FACE,EAR,EYEL 1.1-2CM 01/28/06 Left cheek and right forearm lesions PAST SURGICAL HISTORY OF July 06, 2009 Hysteroscopy D&C PAST SURGICAL HISTORY OF 10/2017 vaginal vault suspension PAST SURGICAL HISTORY OF 10/2017 Lap band removed UNLIS LAPAROSCOPIC PROCEDURE LIVER 04/21/2010 Performed by THI ALCOCER at [facility] Medications Current Outpatient Medications Medication Sig gabapentin (NEURONTIN) 300 mg capsule Take 1 capsule by mouth once daily for 90 days. omeprazole (PRILOSEC) 40 mg capsule Take 1 capsule by mouth once daily. tolterodine ER (DETROL LA) 4 mg 24 hr capsule Take 1 capsule by mouth once daily. atorvastatin (LIPITOR) 10 mg tablet Take 1 tablet by mouth once daily. Discontinue simvastatin potassium chloride (K-TAB) 10 mEq tablet Take 1 tablet by mouth once daily. amitriptyline (ELAVIL) 75 mg tablet Take 1 tablet by mouth daily at bedtime. hydrocortisone 2.5 % ointment Apply to affected area twice daily as needed (hemorrhoids). acetaminophen (TYLENOL) 500 mg tablet Take 1 tablet by mouth every 6 hours as needed for pain. calcium carbonate (TUMS) 500 mg chew Take 1 tablet by mouth every hour as needed (mouth or hand numbness or tingling). fjvyjhz-hsiovjujz-wlklxgd D3 500 mg-5 mcg (200 unit) per tablet Take 1 tablet by mouth three times daily. dilTIAZem CD (CARTIA XT) 300 mg 24 hr capsule Take 1 capsule by mouth once daily. furosemide (LASIX) 40 mg tablet Take 1 tablet by mouth once daily. zoledronic acid (RECLAST) 5 mg/100 mL pgbk PREMIX piggyback Inject 100 mL intravenously one time only for 1 dose. HYDROcodone-acetaminophen (NORCO) 5-325 mg per tablet Take 3 tablets by mouth as needed. docusate sodium (COLACE) 100 mg capsule Take 1 capsule by mouth twice daily. cholecalciferol (VITAMIN D3) 50 mcg (2,000 unit) tablet Take 2,000 Units by mouth once daily. multivitamin tablet Take 1 tablet by mouth once daily. No current facility-administered medications for this visit. The medication list in the chart was reviewed. Allergies ALLERGIES Allergen Reactions Flagyl [Metronidazo* GI Upset Severe nausea, malaise, dizziness Hctz [Thiazides] Other: See Comments hypercalcemia The allergy list in the chart was reviewed. Family History FAMILY HISTORY Problem Relation Age of Onset Hypertension Mother Diabetes Mother Breast Cancer Mother Heart Mother a fib Diabetes Father Heart Father angioplasty Blood Disease Brother Hairy Cell Leukemia Prostate Cancer Brother Blood Disease Maternal Grandmother Leukemia None Brother Hypertension Maternal Uncle Prostate Cancer Maternal Uncle Hypertension Maternal Aunt Social History Social History Tobacco Use Smoking status: Never Smokeless tobacco: Never Vaping Use Vaping Use: Never used Substance Use Topics Alcohol use: No Drug use: No Review of Systems: 10 point review of systems was negative other than what is mentioned in the H&P Physical Exam BP 135/75 Pulse 95 Ht 152.4 cm (5') Wt 94.6 kg (208 lb 8.9 oz) SpO2 96% BMI 40.73 kg/m Body mass index is 40.73 kg/m . Last 3 Encounter Ht Readings: Date: Ht: 12/27/2017 152.4 cm (5') 10/31/2017 152.4 cm (5') 10/11/2017 152.4 cm (5') General Appearance: Alert, cooperative, not in distress Previous exam: Head: Normocephalic, atraumatic Eyes: PERRL, conjunctiva/corneas clear, EOM's intact with no lid lag or proptosis Neck: Supple Cardiovascular: Regular rate and rhythm, no murmur, rub, or gallop Respiratory: Clear to auscultation bilaterally GI: Soft, non-tender, bowel sounds present Musculoskeletal: back is not tender to palpation Extremities: No edema Skin: no rash Neurologic: AAOx 3 Psychiatric: appropriate mood Imaging DXA as above Recent Laboratory Data: 02/16/21 16:42 05/08/21 17:00 09/11/21 14:15 01/31/22 16:51 04/12/22 16:37 08/13/22 16:23 09/05/22 16:12 Calcium 11.0 (H) 10.6 (H) 9.8 10.2 10.2 10.6 (H) 11.0 (H) Normalized CAlcium 1.48 (H) 1.39 (H) 1.42 (H) Albumin 4.1 4.1 4.0 4.0 4.1 4.2 4.3 eGFR-All Other Races >60 >60 >60 eGFR 92 75 97 93 PTH, Intact 37 74 (H) 108 (H) Vitamin D 25 Hydroxy 49.1 37.4 37.2 10/09/2019 15:02 02/16/2021 16:42 Vitamin D 1,25 Dihydroxy D3 17.4 PTH Related Peptide <2.0 2.0 SPEP 04/2021: No definitive M protein is identified on protein electrophoresis Assessment and Recommendations: Janay Frederick is a pleasant 73year old female seen in consultation for evaluation and management of hypercalcemia and osteoporosis. Hypercalcemia: She has had elevated calcium since 2014 with elevated PTH. This is therefore PTH dependant hypercalcemia, most likely primary hyperparathyroidism. Familial hypocalciuric hypercalcemia (FHH) is unlikely given the age of onset. She underwent left lower parathyroidectomy by Dr. Vance in 01/2023 and her postoperative calcium and PTH are normal. We will continue the current calcium and vitamin D intake. She is planning to repeat the labs in July 2023 Osteoporosis: Ms. Frederick sustained vertebral fracture following falls from a standing height and she therefore meets the definition of osteoporosis. She received Reclast 2 time in 01/2022 and 09/2022. DXA scan from 2021 shows decline in BMD at the femoral neck. I previously reviewed the images. The hip/femoral neck placements were suboptimal, and only L1 and L4 were included at the spine levels. She has had fragility fractures. Risk factors for low bone density include age, ethnicity, post-menopausal state, decreased mobility, hyperparathyroidism and possibly inadequate calcium intake. While there is decline on the DXA scan, I would not consider this failure of Reclast because it was done approximately 6 months after the first Reclast infusion. We will repeat her DXA scan in 08/2023 and I will see her after that. We will likely proceed with the third Reclast infusion Some of the above has been copied from prior documentation on 09/12/2022 but rose elements reviewed, confirmed, and/or updated by me (Hayden Flanagan MD) on 06/08/2023 Medical Decision Making: Problems: Moderate: 2+ stable chronic illnesses Data: Unique test result(s) reviewed: 3+ Unique test(s) ordered: 2 Risk: Moderate: Moderate risk from testing/treatment Medical Decision Making Level: 4 - Moderate Hayden Flanagan MD documented in this encounter [facility] 05-28-2023 Note HNO ID: [id number] Author: Arnol Jonas MD Service: ? Author Type: Physician Type: Progress Notes Filed: 05/28/2023 4:33 PM Note Text: Janay is here for Durolane injection in the right knee. History and physical exam unchanged. Large Joint Arthro/Inj: R knee joint Informed Consent Consent Obtained: Verbal [place] Protocol A moment to CARE was completed. SIGN IN Personnel directly involved with the procedure wore the appropriate PPE. Special Equipment: N/A Patient/Surrogate Stated/Verified: Patient name, Date of , Relevant allergies and Intended procedure TIME OUT Intended patient and procedure match the source document(s). Consent documented and matches the intended procedure. Relevant labs, photos, and/or imaging studies have been reviewed. Correct side/site marked and visible. Medications required for procedure verified. No fire risk assessment and interventions applicable. No implant(s) inserted. 05/28/2023 4:16 PM The procedure site was prepped in the usual sterile fashion. Site: R knee joint Medications: 3 mL hyaluronate sodium, stabilized 60 mg/3 mL Outcome: Tolerated well, no immediate complications Post-injection instructions were reviewed with the patient and the patient voiced understanding of these instructions. SIGN OUT No instruments, equipment or retained foreign bodies applicable. I spent a total of <10 minutes minutes on the date of the service which included preparing to see the patient, [id number] patient care, completing clinical documentation, obtaining and/or reviewing separately obtained history, performing a medically appropriate examination, counseling and educating the patient/family/caregiver. Arnol Jonas MD Orthopaedic Surgery [facility] 05-17-2023 Miscellaneous Notes May 17, 2023 PID: [id number] Janay Frederick [address] [place] [address] Dear Ms. Frederick, We are pleased to inform you that the results of your recent breast imaging exam on 05/16/2023 are normal. Early detection of cancer is very important. We also understand recommendations regarding breast cancer screening are controversial. Please discuss with your primary care provider which strategy is best for you and whether a mammogram is right for you. Your imaging studies and report will be kept on file at [facility] as part of your permanent medical record and are available for your continuing care. Thank you for allowing us to help in meeting your health care needs. Sincerely, Dr. Richardson Interpreting Radiologist [facility] (Normal over 40) documented in this encounter [facility] 05-16-2023 Note HNO ID: [id number] Author: Kathleen Hoffmann Mammo Tech Service: ? Author Type: Toxics Program Officer Type: Progress Notes Filed: 05/16/2023 3:03 PM Note Text: Radiology Service Progress Note PATIENT NAME: Janay Frederick DATE OF SERVICE: May 16, 2023 TIME: 2:39 PM PATIENT IDENTITY VERIFICATION COMPLETED USING TWO (2) IDENTIFIERS: Name and Date of confirmed by patient verbally. FALL SCREENING: Has the patient had 2 falls in the last year or 1 fall with injury or currently using an Ambulatory Assistive Device (Walker, Cane, Wheelchair, Crutches, etc.)? No PATIENT GENDER DATA: Female. status: : No status: NO. PATIENT RELEVANT IMPLANT DATA REVIEWED: Not Applicable RADIOLOGY DEPARTMENT: Mammography PERIPHERAL IV DATA: Not applicable SIGNED BY: Shruthi Neville May 16, 2023 2:[address] [facility] 05-16-2023 History of Present illness Narrative Radiology Service Progress Note PATIENT NAME: Janay Frederick DATE OF SERVICE: May 16, 2023 TIME: 2:39 PM PATIENT IDENTITY VERIFICATION COMPLETED USING TWO (2) IDENTIFIERS: Name and Date of confirmed by patient verbally. FALL SCREENING: Has the patient had 2 falls in the last year or 1 fall with injury or currently using an Ambulatory Assistive Device (Walker, Cane, Wheelchair, Crutches, etc.)? No PATIENT GENDER DATA: Female. status: : No status: NO. PATIENT RELEVANT IMPLANT DATA REVIEWED: Not Applicable RADIOLOGY DEPARTMENT: Mammography PERIPHERAL IV DATA: Not applicable SIGNED BY: Kathleen Hoffmann [employer] May 16, 2023 2:39 PM documented in this encounter [facility] 04-12-2023 Miscellaneous Notes Patient notified. Marlene Loaiza LPN Order approved. Patient calls and states that she is due to have annual mammogram in April. Patient asking if provider can place order so that mammogram can be scheduled? Please review and advise, Tarsha Hernández RN documented in this encounter [facility] 03-20-2023 Miscellaneous Notes PDMP website checked and validated. All prescriptions have been APPROPRIATELY filled. No suspicious activity was identified. 03/20/2023 by Shorty Teresa MD Patient has been identified by name and date of : Yes Requested Prescriptions Pending Prescriptions Disp Refills gabapentin (NEURONTIN) 300 mg capsule 30 capsule 2 Sig: Take 1 capsule by mouth once daily for 90 days. omeprazole (PRILOSEC) 40 mg capsule 90 capsule 3 Sig: Take 1 capsule by mouth once daily. tolterodine ER (DETROL LA) 4 mg 24 hr capsule 90 capsule 3 Sig: Take 1 capsule by mouth once daily. atorvastatin (LIPITOR) 10 mg tablet 90 tablet 3 Sig: Take 1 tablet by mouth once daily. Discontinue simvastatin potassium chloride (K-TAB) 10 mEq tablet 90 tablet 3 Sig: Take 1 tablet by mouth once daily. amitriptyline (ELAVIL) 75 mg tablet 90 tablet 3 Sig: Take 1 tablet by mouth daily at bedtime. hydrocortisone 2.5 % ointment 28.35 g 2 Sig: Apply to affected area twice daily as needed (hemorrhoids). ELDER-02/12/23 Labs-02/19/23 NOV-06/19/23 RX INSTRUCTIONS: Patient aware RX will be sent to pharmacy. No need to notify patient. Payton Marie [employer] documented in this encounter [facility] 02-20-2023 Miscellaneous Notes Images from the original note were not included. ENDOCRINE SURGERY POST OP FOLLOW UP Name: Janay Frederick Date: February 20, 2023 PROCEDURE: parathyroidectomy Patient is doing well overall. Voice is strong and normal. Reviewed pathology hypercellular Reviewed labs Ca 9.3 PTH 46 Incision care reviewed Plan: Continue with [place] daily Repeat labs in six months SIGNATURE: Leydi Vance MD documented in this encounter [facility] 02-12-2023 Note HNO ID: [id number] Author: Shorty Teresa MD Service: ? Author Type: Physician Type: Progress Notes Filed: 02/12/2023 5:07 PM Note Text: Chief Complaint Patient presents with: Follow Up HPI Janay Frederick is a 72 year old female who presents here today for Above Complaints. Hyperparathyroidism managed by Dr. Flanagan with recent parathyroidectomy through Dr. Vance's office on 02/08 without complications. Has f/u on 03/04 with their office and labs ordered for next week. Dog tripped her a couple weeks ago and patient had fall without injury. Using cane with ambulation and feels steady on her feet. Denies head injury or LOC. Patient is taking Detrol LA as prescribed for overactive bladder. Symptoms improved. Only getting incontinence about 2-3 times per week. Attributes some of this to drinking water before bed. GERD: controlled on Omeprazole 40 mg daily. Migraines: Taking diltiazem for prophylaxis. Notes that she gets headaches when she doesn't drink caffeine, but does not get migraines while she is on the diltiazem. Elavil working well for insomnia. Following up with Dr. Nur's office monthly for her chronic lower back pain with last OV yesterday. Taking [place] as prescribed which is working well for her pain. On gabapentin through our office for chronic pain. Does not think it is doing much for her. Would like to try to reduce this to daily and then possibly wean off entirely. Past medical history, appointments, medications, allergies reviewed. Previous Medical History PAST MEDICAL HISTORY Diagnosis Date BCC (basal cell carcinoma of skin) Chronic lower back pain Dr. Nur Gastric band slippage Dr. Garcia, removed 11/06 Gastric ulcer, unspecified as acute or chronic, without mention of hemorrhage or perforation, with obstruction Generalized osteoarthrosis, unspecified site back GERD (gastroesophageal reflux disease) Hyperparathyroidism (HCC) Insomnia Knee pain, chronic Lumbago Migraine without aura on diltiazem Obesity, unspecified stated BMI 40.5 HT: 61.5 WT: 220 Osteopenia of multiple sites Overactive bladder Personal history of unspecified urinary disorder years ago since last bladder infection SCC (squamous cell carcinoma) Stroke (HCC) 12/06/1981 cva left side residual, young at age 31, likely 2/2 OCPs Unspecified hemorrhoids without mention of complication Hemorrhoids Urinary urgency Uterine prolapse s/p hysterectomy Venous incompetence bilaterally, f/u Dr. Maravilla Vitamin D deficiency Previous Surgical History PAST SURGICAL HISTORY Procedure Laterality Date ARTHRP KNE CONDYLEANDPLATU MEDIALANDLAT COMPARTMENTS Left 03/17/2014 Knee replacement, total left COLONOSCOPY FLX DX W/COLLJ SPEC WHEN PFRMD 02/08/2005 Colonoscopy COLONOSCOPY FLX DX W/COLLJ SPEC WHEN PFRMD 02/24/15 Colonoscopy EGD DILATION GASTRIC/DUODENAL STRICTURE 12/20/09 ESOPHAGOGASTRODUODENOSCOPY TRANSORAL DIAGNOSTIC 11/27/13 EGD HYSTERECTOMY 10/2107 pelvic organ prolapse LAPAROSCOPY SURG CHOLECYSTECTOMY 2005 Cholecystectomy, lap LAPS GASTRIC RESTRICTIVE PROCEDURE PLACE DEVICE 04/21/2010 Performed by THI ALCOCER at [facility] LAPS RPR PARAESPHGL HRNA INCL FUNDPLSTY W/O MESH 04/21/2010 Performed by THI ALCOCER at [facility] MAL LESION FACE,EAR,EYEL 1.1-2CM 01/28/06 Left cheek and right forearm lesions PAST SURGICAL HISTORY OF July 06, 2009 Hysteroscopy DANTX PAST SURGICAL HISTORY OF 10/2017 vaginal vault suspension PAST SURGICAL HISTORY OF 10/2017 Lap band removed UNLIS LAPAROSCOPIC PROCEDURE LIVER 04/21/2010 Performed by THI ALCOCER at [facility] Family History FAMILY HISTORY Problem Relation Age of Onset Hypertension Mother Diabetes Mother Breast Cancer Mother Heart Mother a fib Diabetes Father Heart Father angioplasty Blood Disease Brother Hairy Cell Leukemia Prostate Cancer Brother Blood Disease Maternal Grandmother Leukemia None Brother Hypertension Maternal Uncle Prostate Cancer Maternal Uncle Hypertension Maternal Aunt Patient Allergies ALLERGIES Allergen Reactions Flagyl [Metronidazo* GI Upset Severe nausea, malaise, dizziness Hctz [Thiazides] Other: See Comments hypercalcemia Current Medications Current Outpatient Medications on File Prior to Visit Medication Sig acetaminophen (TYLENOL) 500 mg tablet Take 1 tablet by mouth every 6 hours as needed for pain. calcium carbonate (TUMS) 500 mg chew Take 1 tablet by mouth every hour as needed (mouth or hand numbness or tingling). [id number]-jtmtprs D3 500 mg-5 mcg (200 unit) per tablet Take 1 tablet by mouth three times daily. gabapentin (NEURONTIN) 300 mg capsule Take 1 capsule by mouth twice daily for 90 days. dilTIAZem CD (CARTIA XT) 300 mg 24 hr capsule Take 1 capsule by mouth once daily. furosemide (LASIX) 40 mg tablet Take 1 tablet by mouth once daily. omeprazole (PRILOSEC) 40 (more content not included)... [facility] documented as of this encounter (statuses as of 06/20/2023) [facility]2023 NoteHNO ID: [id number] Author: Yanelis Diaz MD Service: General Surgery Author Type: Resident Type: Progress Notes Filed: 02/09/2023 8:10 AM Note Text: GENERAL SURGERY PROGRESS NOTE NAME: Janay Frederick February 09, 2023 8:08 AM 1 Day Post-Op AANDP: Janay Frederick is a 72 year old female s/p LL parathyroid resection. - Neuro: prn pain control, tylenol/ibuprofen - Cardiopulm: HDS, pulse-ox, monitor for difficulty breathing, cepacol/chloraseptic for sore throat - FEN/GI: Regular diet. - : Voiding - ID: ABX: none indicated - Heme: monitor for signs of hematoma - Endo: monitor for tetany/tingling/signs of hypocalcemia, tid calcium carbonate/vitamin D and prn Tums for numbness - DVT ppx: SCDs only - Dispo: Discharge today Discussed with Dr. Sabiha Khan. S: No acute events since OR. No perioral numbness/tingling. Tingling in her fingers.No hoarseness/difficulty swallowing. No difficulty breathing/chest pain. On exam: BP 125/63 Pulse 95 Temp 36.4 ?C (97.5 ?F) (Oral) Resp 18 Ht 152.4 cm (5') Wt 97.3 kg (214 lb 8.1 oz) SpO2 97% BMI 41.89 kg/m? Gen: NAD CV: extremities warm and well perfused, pulse regular Pulm: no increased work of breathing Neck incision clean/dry/intact, no ecchymosis/signs of swelling Current Facility-Administered Medications Medication Dose Route Frequency Provider Last Rate Last Admin gabapentin 300 mg cap(s) (NEURONTIN) 300 mg ORAL BID Laura Delgado MD 300 mg at 02/09/23 0753 atorvastatin 10 mg tab(s) (LIPITOR) 10 mg ORAL DAILY Laura Delgado MD 10 mg at 02/09/23 075 dilTIAZem CD (CARDIZEM CD, CARTIA XT) cap(s) 300 mg 300 mg ORAL DAILY Laura Delgado MD 300 mg at 02/09/23 075 furosemide 40 mg tab(s) (LASIX) 40 mg ORAL DAILY Laura Delgado MD amitriptyline (ELAVIL) tab(s) 75 mg 75 mg ORAL AT BEDTIME Laura Delgado MD 75 mg at 02/08/232135 dextrose 5% in NaCl 0.45% with 20 mEq/L KCl iv infusion 75 mL/hr INTRAVENOUS CONTINUOUS Laura Delgado MD ibuprofen 600 mg tab(s) (MOTRIN) 600 mg ORAL q 6 H PRN Laura Delgado MD 600 mg at 02/08/23 1858 hbjrank-lyfxmgpuq-icwrjle D3 500 mg-5 mcg (200 unit) 1 tablet 1 tablet ORAL TID Laura Delgado MD 1 tablet at 02/09/23 0753 calcium carbonate 500 mg chewable tab(s) (TUMS) 500 mg ORAL q 1 H PRN Laura Delgado MD 500 mg at 02/08/23 195 benzocaine-menthol 1 Lozenge (CHLORASEPTIC) 1 Lozenge MUCOUS MEMBRANE (TOPICAL MOUTH AND THROAT) q 2 H PRN Laura Delgado MD 1 Lozenge at 02/08/23 1544 phenol 1 [place] (CHLORASEPTIC) 1 [place] MUCOUS MEMBRANE (TOPICAL MOUTH AND THROAT) q 2 H PRN Laura Delgado MD ondansetron (PF) 4 mg injection (ZOFRAN) 4 mg INTRAVENOUS q 6 H PRN Laura Delgado MD NaCl 0.9% iv flush bag 20 mL INTRAVENOUS PRN Laura Delgado MD trospium 20 mg tab(s) (SANCTURA) 20 mg ORAL BID AC Laura Delgado MD 20 mg at 02/09/[address] 20 mg tab(s) (PROTONIX) 20 mg ORAL DAILY (6 AM) Laura Delgado MD 20 mg at 02/09/23 0610 HYDROcodone 5 mg - acetaminophen 325 mg tablet (NORCO) 1 tablet ORAL q 8 H PRN Macy Jameson APRN.WHITE MIXING OPERATOR 1 tablet at 02/09/23 0751 acetaminophen 500 mg tab(s) (TYLENOL) 500 mg ORAL q 4 H PRN Macy Jameson APRN.WHITE MIXING OPERATOR Date 02/08/23699 - 02/09/23 0659 02/09/23 07 - 02/10/23 0659 Shift 9445-0382 6203-5043 0457-7635 24 Hour Total 0794-6310 4004-1046 7546-9025 24 Hour Total INTAKE IV 900 900 Volume (mL) (NaCl 0.9% iv infusion) 900 900 Shift Total 900 900 OUTPUT Blood 5 5 Estimated Blood loss 5 5 Shift Total 5 5 Weight (kg) 97.3 97.3 97.3 97.3 97.3 97.3 97.3 Recent Labs 02/09/23 0430 CA 9.1 *A review of daily goals, interventions, and plan of care with the multidisciplinary team and patient has been conducted. The patient?s concerns have been addressed and he/she agrees to proceed with today?s plan of care. Signature: Yanelis Pope MD General Surgery Resident Date: February 09, 2023 Time: 8:08 [facility]07-21-2023 NoteHNO ID: [id number] Author: Laura Delgado MD Service: Endocrine Surgery Author Type: Resident Type: Progress Notes Filed: 02/08/2023 2:24 PM Note Text: ENDOCRINE SURGERY POSTOP NOTE NAME: Janay Frederick February 08, 2023 2:24 PM Day of Surgery AANDP: Janay Frederick is a 72 year old female s/p parathyroidectomy. - Neuro: prn pain control, tylenol/ibuprofen - Cardiopulm: HDS, pulse-ox, monitor for difficulty breathing, cepacol/chloraseptic for sore throat - FEN/GI: Regular diet. AM Labs. - : Voiding - ID: ABX: none indicated - Heme: monitor for signs of hematoma - Endo: monitor for tetany/tingling/signs of hypocalcemia, tid calcium carbonate/vitamin D and prn Tums for numbness - DVT ppx: SCDs only - Dispo: Anticipate discharge in am. February 08, 2023 2:24 PM Laura Delgado MD General Surgery PGY-4 Endocrine Surgery pager: [phone] S: No acute events since OR. No perioral numbness/tingling. No hoarseness/difficulty swallowing. No difficulty breathing/chest pain. On exam: BP 139/83 Pulse 71 Temp 36.4 ?C (97.5 ?F) (Temporal Artery) Resp 13 SpO2 95% Gen: NAD CV: extremities warm and well perfused, pulse regular Pulm: no increased work of breathing on room air Neck incision clean/dry/intact, no ecchymosis/signs of swelling Current Facility-Administered Medications Medication Dose Route Frequency Provider Last Rate Last Admin meperidine (PF) 12.5 mg injection (DEMEROL) 12.5 mg INTRAVENOUS q 10 MIN PRN Wilber Soliman MD fentaNYL 50 mcg/mL 50 mcg injection (SUBLIMAZE) 50 mcg INTRAVENOUS q 10 MIN PRN Wilber Soliman MD acetaminophen 650 mg tab(s) (TYLENOL) 650 mg ORAL PRN Wilber Soliman MD ondansetron 4 mg tab(s) (ZOFRAN) 4 mg ORAL q 6 H PRN Wilber Soliman MD Or ondansetron (PF) 4 mg injection (ZOFRAN) 4 mg INTRAVENOUS q 6 H PRN iWlber Soliman MD benzocaine-menthol 1 Lozenge (CHLORASEPTIC) 1 Lozenge MUCOUS MEMBRANE (TOPICAL MOUTH AND THROAT) q 2 H PRN Laura Delgado MD 1 Lozenge at 02/08/23 1418 phenol 1 [place] (CHLORASEPTIC) 1 [place] MUCOUS MEMBRANE (TOPICAL MOUTH AND THROAT) q 2 H PRN Laura Delgado MD Date 02/07/23 07 - 02/08/23 0659(Not Admitted) 02/08/23 07 - 02/09/23 0659 Shift [id number] 2613-9525 9059-4226 24 Hour Total 3608-9280 6478-0068 7698-0770 24 Hour Total INTAKE IV 900 900 Volume (mL) (NaCl 0.9% iv infusion) 900 900 Shift Total 900 900 OUTPUT Blood 5 5 Estimated Blood loss 5 5 Shift Total 5 5 Weight (kg) Calcium, Total Date Value Ref Range Status 01/31/2023 10.6 (H) 8.5 - 10.2 mg/dL Final TSH Date Value Ref Range Status 05/08/2021 2.840 0.270 - 4.200 uU/mL Final Vit D1,25 Dihydroxy Date Value Ref Range Status 10/09/2019 17.4 15.0 - 60.0 pg/mL Final Comment: This test was developed and its performance characteristics determined by [facility] Pathology [facility] Laboratory [facility] [place] ( [facility]). It has not been cleared or approved by the FDA. [facility] is regulated under CLIA as qualified to perform high complexity testing. This test is used for clinical purposes. It should not be regarded as investigational or for research. PTH, Intact Date Value Ref Range Status 01/31/2023 81 (H) 15 - 65 pg/mL Final *A review of daily goals, interventions, and plan of care with the multidisciplinary team and patient has been conducted. The patient?s concerns have been addressed and he/she agrees to proceed with today?s plan of care.[facility]07-21-2023 NoteHNO ID: [id number] Author: Ita Tamez AA Service: ? Author Type: Tearoom Hostess Type: Anesthesia Procedure Notes Filed: 02/08/2023 12:00 PM Note Text: ANESTHESIOLOGY PROCEDURE NOTE Airway General Information Procedure Start Time/Medication Administration: 02/08/2023 11:47 AM Patient location during procedure: OR Timeout Performed Pre-procedure: timeout performed Consent Obtained: Yes Patient identity confirmed: arm band, care state farm agent team member and patient Staffing CAA: Ita Tamez AA Indications and Patient Condition Indications for airway management: anesthesia and airway protection Preoxygenated: yes anesthesia circuit Patient position: sniffing Method: asleep Cricoid Pressure: No Manual In-Line Stabilization: No Difficult Mask: No Final Airway Details Final airway type: endotracheal airway Final Endotracheal Airway: ETT Cuffed: yes Successful intubation technique: video laryngoscopy Devices used: Hussein and intubating stylet Endotracheal tube insertion site: oral Blade size: #3 ETT size (mm): 7.0 Measured from: lips Measurement (cm): 21 Placement verified by: chest auscultation and capnometry Cormack-Lehane Classification: grade I - full view of glottis Number of attempts at approach: 1 Failed airway: no Unrecognized esophageal intubation: no Airway not difficult SIGNATURE: FABY Perez PATIENT NAME: Janay Frederick DATE: February 08, 2023 TIME: 11:59 AM CSN: [id number] NoteHNO ID: [id number] Author: Neva Chandler RN Service: Interventional Radiology Author Type: Registered Nurse Type: Progress Notes Filed: 01/31/2023 12:51 PM Note Text: Radiology Service Progress Note DATE OF SERVICE: January 31, 2023 TIME: 12:51 PM PATIENT IDENTITY VERIFICATION COMPLETED USING TWO (2) STANDARD IDENTIFIERS: Name and Date of confirmed by patient verbally. FALL SCREENING: Has the patient had 2 falls in the last year or 1 fall with injury or currently using an Ambulatory Assistive Device (Walker, Cane, Wheelchair, Crutches, etc.)? No PATIENT GENDER DATA: Female. status: : No status: NO. ALLERGIES: Reviewed and unchanged EXAM: Nuc med IV SITE: Ambulatory: A peripheral IV was started in the Right antecubital site with a Angio cath: 22 gauge. Using ultrasoundi guidance. IV SITE APPEARANCE: Clean,Dry and Intact SIGNATURE: Neva Chandler RN PATIENT NAME: Janay Frederick DATE: January 31, 2023 TIME: 12:51 [facility]07-13-2023 History of Present illness Narrative * Neva Chandler RN - 01/31/2023 12:30 PM EDT Radiology Service Progress Note DATE OF SERVICE: January 31, 2023 TIME: 12:51 PM PATIENT IDENTITY VERIFICATION COMPLETED USING TWO (2) STANDARD IDENTIFIERS: Name and Date of confirmed by patient verbally. FALL SCREENING: Has the patient had 2 falls in the last year or 1 fall with injury or currently using an Ambulatory Assistive Device (Walker, Cane, Wheelchair, Crutches, etc.)? No PATIENT GENDER DATA: Female. status: : No status: NO. ALLERGIES: Reviewed and unchanged EXAM: Nuc med IV SITE: Ambulatory: A peripheral IV was started in the Right antecubital site with a Angio cath: 22 gauge. Using ultrasoundi guidance. IV SITE APPEARANCE: Clean,Dry and Intact SIGNATURE: Neva Chandler RN PATIENT NAME: Janay Frederick DATE: January 31, 2023 TIME: 12:51 PM [facility] NoteHNO ID: [id number] Author: Bib Parra Tech Service: Nuclear Medicine Author Type: Toxics Program Officer Type: Progress Notes Filed: 01/31/2023 1:59 PM Note Text: RADIOLOGY SERVICE PROGRESS NOTE SERVICE DATE: 01/31/2023 SERVICE TIME: 1:58 PM PATIENT IDENTITY VERIFICATION COMPLETED USING TWO (2) STANDARD IDENTIFIERS: Name and Date of confirmed by patient verbally FALL SCREENING: Has the patient had 2 falls in the last year or 1 fall with injury or currently using an Ambulatory Assistive Device (Walker, Cane, Wheelchair, Crutches, etc.)? Yes, Patient High Risk for Falls What interventions were put in place to prevent falls during this visit? [place] Risk Wristband Applied, Instructed Patient to Call for Help if Needed, Offered Assistance with Transfers/Clothing, and Instructed Patient to Remain Seated (Not on Exam Table) Until Exam PATIENT GENDER DATA: .female : No ALLERGIES: Reviewed and unchanged MEDICATIONS REVIEWED: Not applicable PATIENT RELEVANT IMPLANT DATA REVIEWED: Not Applicable CREATININE: Creatinine Date Value Ref Range Status 09/21/2022 0.60 0.58 - 0.96 mg/dL Final 09/05/2022 0.64 0.58 - 0.96 mg/dL Final 08/13/2022 0.53 (L) 0.58 - 0.96 mg/dL Final Estimated Glomerular Filtration Rate Date Value Ref Range Status 09/21/2022 94 >=60 mL/min/1.73m? Final Comment: Estimated Glomerular Filtration Rate (eGFR) is calculated using the 2020 CKD-EPI creatinine equation. This equation utilizes serum creatinine, sex, and age as parameters. The creatinine assay has traceable calibration to isotope dilution-mass spectrometry. Refer to KDIGO guidelines for clinical interpretation. In patients with unstable renal function, e.g. those with acute kidney injury, the eGFR may not accurately reflect actual GFR. eGFR- Date Value Ref Range Status 09/11/2021 >60 Final P.O.C.T. RESULTS: N/A January 31, [address] PERFORMED: No IV SITE: Ambulatory: A peripheral IV was started in the Right antecubital site with a Angio cath: 24 gauge. POST EXAM PIV STATUS: Discontinued PROCEDURE TYPE: NM Parathyroid: 236 microcurries of Nal 123 capsules was administered orally at 10:00. 33.7 mCi of Tc99m Sestamibi was injected IV at 1250. ADMINISTRATION TIME: 10:00 PATIENT DISCHARGED TO: Ambulatory patient, left NM department area. A Diagnostic radioactive procedure has taken place, with no further precautions necessary other than routine body substance precautions. More information regarding radiation safety can be found using this link: [email or web address] SIGNATURE: Cathie Womack [employer] PATIENT NAME: Janay Frederick DATE: January 31, 2023 TIME: 1:58 PM PAGER/CONTACT #:[facility]07-13-2023 Instructions* Patient Instructions* Zelda Eric APRN.WHITE MIXING OPERATOR - 01/31/2023 10:57 AM EDT PATIENT PREOPERATIVE INSTRUCTIONS [facility]: [phone] -- [address] [place] [address]. Please read below carefully for your personalized instructions. Dietary Restrictions: - No solid food after midnight. - You may have 12 ounces of clear liquids (water, clear juices such as apple juice or gatorade, carbonated beverages, clear tea, black coffee, jello) until 2 hours before scheduled arrival at facility. - Do not drink any alcohol after midnight the night before your surgery. Medications: Unless instructed differently below, stay on all of your medications until your surgery. Approved medications to take the morning of surgery with a sip of water: atorvastatin (lipitor), diltiazem, gabapentin, [place], omeprazole (prilosec), potassium chloride, and detrol. If you start any new medications after today's visit, please contact the surgeon's office. Blood Thinning Medications: - Stop NSAIDS (Ibuprofen, Advil, Aleve, Motrin, Celebrex, Mobic, etc.) 7 days before surgery, as directed by your surgeon. - Stop Aspirin 7 days before surgery, as directed by your surgeon. - Stop Vitamin E, ALL multi-vitamins, herbals and dietary supplements 7 days before surgery. - You may take Tylenol (Acetaminophen) or any of your pain medications that do not contain aspirin or NSAIDS as needed. Important Reminders: - Candy, mints, and tobacco products are NOT permitted the morning of surgery. - Hearing aids, dentures and glasses may be worn the morning of surgery. - NO jewelry, body piercings, makeup, hairpins or contacts are to be worn the day of surgery. If you develop symptoms such as a fever, cold, or flu, or have other changes to your health within TWO DAYS of scheduled surgery or the morning of surgery, please contact the surgery center above. Personal Belongings: -Please have photo ID and insurance cards. -If you do not have a copy of advance directives on file with us, please bring a copy with you on the day of surgery. - Leave ALL valuables and money at home or with family members. For Outpatient Procedures: - YOU MUST HAVE A RESPONSIBLE STATE FARM AGENT TEAM MEMBER TAKE YOU HOME. A MAINTENANCE FOREMAN OR TEXTILES PRINTER CANNOT BE MADE A RESPONSIBLE STATE FARM AGENT TEAM MEMBER. - We recommend that a responsible person stays with you overnight to take care of you. - You cannot stay in a hotel alone after outpatient surgery. You will not be permitted to have yoursurgery, if you do not have someone to take care of you. Arrival Time for Surgery: - The Surgery Center or hospital where you are having surgery will call the afternoon before surgery (or Saturday for Saturday surgery) with a scheduled arrival time. - If you have not heard by 4 pm, please contact the surgery center above. Please be aware that emergency situations arise, which may delay or change your surgical time. If this happens, we will notify you as soon as possible and regret any inconvenience. If you already have an Advance Directive, please fax a copy to [phone] or email to for it to be added to your chart. If you do not have an Advance Directive, you can find the appropriate form and more information at [email or web address]. We recommend that youcomplete the Advance Directive form found on the website and bring it with you the day of your surgery. It can be witnessed and scanned into your chart that day. Zelda Eric APRN.CNP documented in [facility]City [facility] History and physical note * Zelda Eric APRN.CNP - 01/31/2023 9:42 AM EDT HISTORY AND PHYSICAL EXAMINATION SERVICE DATE: 01/31/2023 SERVICE TIME: 10:41 AM PRIMARY CARE PHYSICIAN: Shorty Teresa MD REASON FOR VISIT: Janay Frederick is a 72 year old female who is scheduled for Procedure(s): PARATHYROIDECTOMY (N/A) at the request of @REFPROV2@ for consultation. My final recommendation will be communicated back to the requesting physician by way of shared medical record or letter. 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) Chronic Bilateral Low Back Pain Without Sciatica Incomplete Uterovaginal Prolapse Pelvic Organ Prolapse Quantification Stage 2 Cystocele Venous Incompetence Hypercalcemia Osteoporosis Obesity, Class Iii, Bmi 40-49.9 (Morbid Obesity) (Hcc) Hyperparathyroidism (Hcc) Migraine Without Aura Gerd (Gastroesophageal Reflux Disease) COVID-19 Immunization Status Overdue - COVID-19 VACCINE (6 - Pfizer series) Overdue since 09/01/2022 05/01/2022 Imm Admin: COVID-19 booster vaccine, age 12+ yr, bivalent (PFIZER-BIONTECH) 12/21/2021 Imm Admin: COVID-19 original vaccine, age 12+ yr, monovalent (PFIZER- BIONTECH - SHAY TOP) 06/23/2021 Imm Admin: COVID-19 original vaccine, age 12+ yr, monovalent (PFIZER- BIONTECH - PURPLE TOP) Only the first 3 history entries have been loaded, but more history exists. CHIEF COMPLAINT: Pre-op evaluation HPI: 72 year old female here for pre-op evaluation. Patient with chronically elevated calcium. +osteoporosis following with endocrinology. Denies fatigue and constipation. REVIEW OF SYSTEMS: General: No weight loss, malaise or fevers. Neurological: Positive for: headaches and strokes. Negative for: impaired sensorium, multiple sclerosis, Parkinson's disease, seizures and TIA. Respiratory: No history of current cough or dyspnea, or pneumonia in the past 6 weeks. No history of respiratory/pulmonary symptoms or problems. Cardiovascular: Left leg lymphedema- treated with compression stocking and lasix. Positive for: hyperlipidemia and PVD Negative for: angina, arrhythmia, atrial fibrillation, chest pain, CHF, DVT/PE and hypertension. GI: +diarrhea once a week H/o gastric lap band- removed due to discomfort Positive for: GERD and liver disease (H/o fatty liver) Negative for: abdominal pain, dysphagia, nausea and vomiting. : Positive for: frequent urination (OAB), urinary incontinence and urgency. Negative for: dysuria, hematuria, nocturia >1 time per night and renal failure. LONGITUDINAL FLOAT OPERATOR: Negative for abnormal vaginal bleeding, abnormal vaginal discharge. Endocrine: Positive for: hyperparathyroidism. Negative for: diabetes mellitus, hyperthyroidism and hypothyroidism. Hematology: No history of bleeding or clotting disorder. Patient is not taking anti-coagulation or platelet medications. No history of hematological symptoms or problems. Oncology: H/o BCC Psych: No history of psychiatric symptoms or problems. Musculoskeletal: Positive for: joint pain (generalized joint pain) and swelling (LLE). Skin: Negative for lesions, rash and itching. PAST MEDICAL HISTORY Diagnosis Date BCC (basal cell carcinoma of skin) Chronic lower back pain Dr. Nur Gastric band slippage Dr. Garcia, removed 11/06 Gastric ulcer, unspecified as acute or chronic, without mention of hemorrhage or perforation, with obstruction Generalized osteoarthrosis, unspecified site back GERD (gastroesophageal reflux disease) Hyperparathyroidism (HCC) Insomnia Knee pain, chronic Lumbago Migraine without aura on diltiazem Obesity, unspecified stated BMI 40.5 HT: 61.5 WT: 220 Osteopenia of multiple sites Overactive bladder Personal history of unspecified urinary disorder years ago since last bladder infection SCC (squamous cell carcinoma) Stroke (HCC) 12/06/1981 cva left side residual, young at age 31, likely 2/2 OCPs Unspecified hemorrhoids without mention of complication Hemorrhoids Urinary urgency Uterine prolapse s/p hysterectomy Venous incompetence bilaterally, f/u Dr. Maravilla Vitamin D deficiency PAST SURGICAL HISTORY Procedure Laterality Date ARTHRP KNE CONDYLE&PLATU MEDIAL&LAT COMPARTMENTS Left 03/17/2014 Knee replacement, total left COLONOSCOPY FLX DX W/COLLJ SPEC WHEN PFRMD 02/08/2005 Colonoscopy COLONOSCOPY FLX DX W/COLLJ SPEC WHEN PFRMD 02/24/15 Colonoscopy EGD DILATION GASTRIC/DUODENAL STRICTURE 12/20/09 ESOPHAGOGASTRODUODENOSCOPY TRANSORAL DIAGNOSTIC 11/27/13 EGD HYSTERECTOMY 10/2107 pelvic organ prolapse LAPAROSCOPY SURG CHOLECYSTECTOMY 2004 Cholecystectomy, lap LAPS GASTRIC RESTRICTIVE PROCEDURE PLACE DEVICE 04/21/2010 Performed by THI ALCOCER at [facility] LAPS RPR PARAESPHGL HRNA INCL FUNDPLSTY W/O MESH 04/21/2010 Performed by THI ALCOCER at [facility] MAL LESION FACE,EAR,EYEL 1.1-2CM 01/28/06 Left cheek and right forearm lesions PAST SURGICAL HISTORY OF July 06, 2009 Hysteroscopy D&C PAST SURGICAL HISTORY OF 10/2017 vaginal vault suspension PAST SURGICAL HISTORY OF 10/2017 Lap band removed UNLIS LAPAROSCOPIC PROCEDURE LIVER 04/21/2010 Performed by THI ALCOCER at [facility] FAMILY HISTORY Problem Relation Age of Onset Hypertension Mother Diabetes Mother Breast Cancer Mother Heart Mother a fib Diabetes Father Heart Father angioplasty Blood Disease Brother Hairy Cell Leukemia Prostate Cancer Brother Blood Disease Maternal Grandmother Leukemia None Brother Hypertension Maternal Uncle Prostate Cancer Maternal Uncle Hypertension Maternal Aunt Social History Tobacco Use Smoking status: Never Smokeless tobacco: Never Vaping Use Vaping Use: Never used Substance Use Topics Alcohol use: No Drug use: No Prior to Admission medications as of 01/31/23 1040 Medication Sig Last Dose Taking gabapentin (NEURONTIN) 300 mg capsule Take 1 capsule by mouth twice daily for 90 days. Taking Yes dilTIAZem CD (CARTIA XT) 300 mg 24 hr capsule Take 1 capsule by mouth once daily. Taking Yes furosemide (LASIX) 40 mg tablet Take 1 tablet by mouth once daily. Taking Yes omeprazole (PRILOSEC) 40 mg capsule Take 1 capsule by mouth once daily. Taking Yes zoledronic acid (RECLAST) 5 mg/100 mL pgbk PREMIX piggyback Inject 100 mL intravenously one time only for 1 dose. Yes hydrocortisone 2.5 % ointment Apply to affected area twice daily as needed (hemorrhoids). Taking Yes tolterodine ER (DETROL LA) 4 mg 24 hr capsule Take 1 capsule by mouth once daily. Taking Yes atorvastatin (LIPITOR) 10 mg tablet Take 1 tablet by mouth once daily. Discontinue simvastatin Taking Yes amitriptyline (ELAVIL) 75 mg tablet Take 1 tablet by mouth daily at bedtime. Taking Yes potassium chloride (K-TAB) 10 mEq tablet Take 1 tablet by mouth once daily. Taking Yes HYDROcodone-acetaminophen (NORCO) 5-325 mg per tablet Take 3 tablets by mouth as needed. Taking Yes docusate sodium (COLACE) 100 mg capsule Take 1 capsule by mouth twice daily. Taking Yes cholecalciferol (VITAMIN D3) 50 mcg (2,000 unit) tablet Take 2,000 Units by mouth once daily. Taking Yes multivitamin tablet Take 1 tablet by mouth once daily. Taking Yes estradiol (ESTRACE) 0.01 % (0.1 mg/gram) vaginal cream Finger - Tip amount at bedtime as directed for 2 weeks, then every other day Patient not taking: Reported on 01/31/2023 Not Taking naloxone 4 mg/actuation nasal spray (NARCAN) 1 [place] by nasal (alternating) route as needed for known or suspected opioid overdose. Use 1 spray in one nostril as needed for overdose. May repeat every2 to 3 min in alternating nostrils until medical assistance is available Patient not taking: Reported on 01/31/2023 Not Taking No medication comments found. ALLERGIES Allergen Reactions Flagyl [Metronidazo* GI Upset Severe nausea, malaise, dizziness Hctz [Thiazides] Other: See Comments hypercalcemia Objective PHYSICAL EXAM: General: alert and oriented and morbidly obese. Pertinent negatives noted - not distressed. Skin: normal color, no rash or lesions. HEENT: pupils equal round and pupils reactive to light. Pertinent negatives noted - no carotid bruit. Cardiovascular: regular rate and rhythm, normal S1 and S2, no rub, murmurs, or gallop. Respiratory: normal breath sounds, no wheezes or crackles. Abdomen: soft. Pertinent negatives noted - not tender. Extremities: Positive for edema (+1 pitting BLE edema- wearing compression stockings). Pertinent negatives noted - no joint swelling and no joint tenderness. Has contracture to left arm.. Neurological: normal cognition and motor skills. Patient seated in wheelchair. Was able to ambulateto the bathroom with cane. Has contracture to left arm. +weakness on left side of her body . PAIN ASSESSMENT: VITALS: BP 142/69 Pulse 81 Temp (Src) 97.6 (Oral) Resp 17 Ht 5' 0 (1.52m) Wt 208 lb 3.2 oz (94.4kg) SpO2 97% BMI 40.66 kg/(m^2). Diagnostic tests reviewed for today's visit: Lab Value Units Date High Low HB 14.0 g/dL 08/13/2022 15.5 11.5 HCT 44.2 % 08/13/2022 46.0 36.0 WBC 6.26 k/uL 08/13/2022 11.00 3.70 PLT 246 k/uL 08/13/2022 400 150 NA 138 mmol/L 09/21/2022 144 136 K 3.9 mmol/L 09/21/2022 5.1 3.7 GLUC 98 mg/dL 09/21/2022 99 74 BUN 12 mg/dL 09/21/2022 21 7 CREAT 0.60 mg/dL 09/21/2022 0.96 0.58 PTSEC No results within date range. INR No results within date range. APTT No results within date range. ALT 46 U/L 09/05/2022 38 7 AST 20 U/L 09/05/2022 35 13 TBILI 0.2 mg/dL 09/05/2022 1.3 0.2 TSH No results within date range. Lab Value Units Date High Low HCGQT No results within date range. UHCG No results within date range. HCG, BODY* No results within date range. Lab Value Units Date High Low ABORHD No results within date range. ABSCREEN No results within date range. Hemoglobin A1C (%) Date Value 03/26/2018 5.5 07/12/2017 5.8 Recent Results (from the past 8760 hour(s)) ECG COMPLETE Collection Time: 01/31/23 9:31 AM Result Value Ventricular Rate 82 Atrial Rate 82 P-R Interval 154 QRS Duration 96 QT Interval 374 QTC Calculation (Bazett) 436 Calculated P [place] 38 Calculated R [place] 18 Calculated T [place] 49 Impression NORMAL SINUS RHYTHM POSSIBLE LEFT ATRIAL ENLARGEMENT BORDERLINE ECG No results found for this or any previous visit (from the past 22548 hour(s)). Assessment Patient has the following medical conditions which may affect esperanza-operative course: Obesity, Class III, BMI 40-49.9 (morbid obesity) (HCC) Assessment: Body mass index is 40.66 kg/m . 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 Limited mobility/strength left side of body- leftarm contracture. Ambulates with cane. Migraine without aura Assessment: Treated with diltiazem for migraine prevention. Improved on rx. GERD (gastroesophageal reflux disease) Assessment: Stable on rx. Follows with PCP. OAB (overactive bladder) Assessment: On detrol without improvement. Attributes OAB to lasix. +urge incontinence, wears pad. HLD (hyperlipidemia) Assessment: on rx Venous incompetence Assessment: BLE- wears compression stockings daily- currently treated with lasix. Denies current wounds, new, or worsening symptoms. Lewis Activity Status Index: METS: Climb a flight of stairs or walk up a hill (5.50 METs) DASI Score: 5.5 (Able to walk up steps if there is a hand rail due to mobility issues post CVA) Patient denies any chest pain or undue shortness of breath with the above physical activity. Clinical Frailty Scale: 4. Apparently vulnerable STOP-Bang Score: BMI greater than 35 kg/m^2 Patient over 50 years old Denies snoring loudly Denies feeling tired, fatigued, or sleepy during the daytime Has not been observed to stop breathing or choking/gasping during sleep Denies having high blood pressure Does not have a large neck Non-male patient STOP-Bang Score: 2 [id number] Score: Age: 65-74 Sex: Female CHF history: No Hypertension history: No Stroke/TIA/thromboembolism history: Yes Vascular disease history: Yes Diabetes history: No [id number] Score: 5 ASA Class: 3 ANESTHESIA FINDINGS: Intubation History: No history of difficult intubation. No abnormal airway history Significant Anesthesia Considerations: none Airway History: No history of difficult airway No abnormal airway history I - PHYSICAL EVALUATION AIRWAY Patient intubated: No. Tracheostomy tube not present Mallampati: III. TM distance: >3 FB. Neck ROM: full ROM without neurological symptoms. Mouth opening: adequate. Short neck: yes. Thick neck: yes Leiva present: no Lip Bite Test: II Microretrognathia/Micronagthia/Recessed Chin: No DENTAL Dentures, upper: complete. II - ANESTHESIA PLAN ASA Score: 3 Anesthetic Plan: general Beta Allyssa Monitoring Plan Post Procedure Analgesic Plan Prepared for Surgery: optimally prepared for surgery, pending [see comment]. Needs labs and ekg from surgeon CONSULTS: Patient does not require consults for optimization at this time Planned Anesthetic: general The Following Tests/Procedures Have Been Initiated: No orders of the defined types were placed in this encounter. Instructions Given to Patient: Instructions located in the after visit summary. Patient given verbal and written preop instructions and voices comprehension and compliance. SIGNATURE: Zelda Eric APRN.CNP PATIENT NAME: Janay Frederick DATE: January 31, 2023 TIME: 9:42 AM PAGER/CONTACT #: documented in this encounterCity [facility]07-13-[facility]23 History of Present illness Narrative* Cathie Wmoack Tabtor Tech - 01/31/2023 9:30 AM EDT RADIOLOGY SERVICE PROGRESS NOTE SERVICE DATE: 01/31/2023 SERVICE TIME: 1:58 PM PATIENT IDENTITY VERIFICATION COMPLETED USING TWO (2) STANDARD IDENTIFIERS: Name and Date of confirmed by patient verbally FALL SCREENING: Has the patient had 2 falls in the last year or 1 fall with injury or currently using an Ambulatory Assistive Device (Walker, Cane, Wheelchair, Crutches, etc.)? Yes, Patient High Riskfor Falls What interventions were put in place to prevent falls during this visit? [place] Risk Wristband Applied, Instructed Patient to Call for Help if Needed, Offered Assistance with Transfers/Clothing, and Instructed Patient to Remain Seated (Not on Exam Table) Until Exam PATIENT GENDER DATA: .female : No ALLERGIES: Reviewed and unchanged MEDICATIONS REVIEWED: Not applicable PATIENT RELEVANT IMPLANT DATA REVIEWED: Not Applicable CREATININE: Creatinine Date Value Ref Range Status 09/21/2022 0.60 0.58 - 0.96 mg/dL Final 09/05/2022 0.64 0.58 - 0.96 mg/dL Final 08/13/2022 0.53 (L) 0.58 - 0.96 mg/dL Final Estimated Glomerular Filtration Rate Date Value Ref Range Status 09/21/2022 94 >=60 mL/min/1.73m Final Comment: Estimated Glomerular Filtration Rate (eGFR) is calculated using the 2020 CKD-EPI creatinine equation. This equation utilizes serum creatinine, sex, and age as parameters. The creatinine assay has traceable calibration to isotope dilution- mass spectrometry. Refer to KDIGO guidelines for clinical interpretation. In patients with unstable renal function, e.g. those with acute kidney injury, the eGFRmay not accurately reflect actual GFR. eGFR- Date Value Ref Range Status 09/11/2021 >60 Final P.O.C.T. RESULTS: N/A January 31, [address] PERFORMED: No IV SITE: Ambulatory: A peripheral IV was started in the Right antecubital site with a Angio cath: 24 gauge. POST EXAM PIV STATUS: Discontinued PROCEDURE TYPE: NM Parathyroid: 236 microcurries of Nal 123 capsules was administered orally at 10:00. 33.7 mCi of Tc99m Sestamibi was injected IV at 1250. ADMINISTRATION TIME: 10:00 PATIENT DISCHARGED TO: Ambulatory patient, left NM department area. A Diagnostic radioactive procedure has taken place, with no further precautions necessary other than routine body substance precautions. More information regarding radiation safety can be found usingthis link: [email or web address] SIGNATURE: Bib Parra PATIENT NAME: Janay Frederick DATE: January 31, 2023 TIME: 1:58 PM PAGER/CONTACT #: documented in this encounterCity Hospital06-15-2023 NoteHNO ID: [id number] Author: Arnol Jonas MD Service: ? Author Type: Physician Type: Progress Notes Filed: 01/03/2023 3:20 PM Note Text: Orthopaedic Office Note: January 03, 2023 3:18 PM Janay Frederick 72 year old History: Janay is a 72-year-old woman with severe right knee osteoarthritis. She is here for continued conservative management. Subjective: Right knee pain and popping Updated ROS: No changes Updated Exam: Right lower Extremity Valgus deformity, not correctable Range of motion 0 to 110 degrees Crepitance with range of motion Mild effusion Tender palpation medial lateral joint line and lateral femoral condyle Patellofemoral crepitance Updated Imaging: There are right knee osteoarthritis Assessment and Plan: Janay is severe right knee osteoarthritis. She would like to try corticosteroid injection today. Risks and benefits were discussed as well as a verbal consent obtained. Can follow-up every 3 to 4 months for this. I spent a total of approximately 15 minutes on the date of the service which included preparing to see the patient, [id number] patient care, completing clinical documentation, obtaining and/or reviewing separately obtained history, performing a medically appropriate examination, counseling and educating the patient/family/caregiver, and care coordination (not separately reported). Large Joint Arthro/Inj: R knee joint Informed Consent Consent Obtained: Verbal [place] Protocol A moment to CARE was completed. SIGN IN Personnel directly involved with the procedure wore the appropriate PPE. Special Equipment: N/A Patient/Surrogate Stated/Verified: Patient name, Date of , Relevant allergies and Intended procedure TIME OUT Intended patient and procedure match the source document(s). Relevant labs, photos, and/or imaging studies have been reviewed. Correct side/site marked and visible. Medications required for procedure verified. 01/03/2023 3:19 PM The procedure site was prepped in the usual sterile fashion. Site: R knee joint Medications: 12 mg betamethasone acetate-betamethasone sodium phosphate 6 mg/mL Anesthetics: 4 mL lidocaine (PF) 10 mg/mL (1 %) Outcome: Tolerated well, no immediate complications Post-injection instructions were reviewed with the patient and the patient voiced understanding of these instructions. SIGN OUT All instruments, equipment, possible retained foreign bodies accounted for. Arnol Jonas MD [facility]St[facility] NoteHNO ID: [id number] Author: LOLIS Long Service: Radiology Author Type: Technologist Type: Progress Notes Filed: 01/03/2023 2:48 PM Note Text: Radiology Service Progress Note PATIENT NAME: Janay Frederick DATE OF SERVICE: January 03, 2023 TIME: 2:48 PM PATIENT IDENTITY VERIFICATION COMPLETED USING TWO (2) IDENTIFIERS: Name and Date of confirmed by patient verbally. FALL SCREENING: Has the patient had 2 falls in the last year or 1 fall with injury or currently using an Ambulatory Assistive Device (Walker, Cane, Wheelchair, Crutches, etc.)? Yes, Patient High Risk for Falls What interventions were put in place to prevent falls during this visit? Instructed Patient to Remain Seated (Not on Exam Table) Until Exam and Increased Observations by Caregivers PATIENT GENDER DATA: Female. status: : No status: NO. PATIENT RELEVANT IMPLANT DATA REVIEWED: Not Applicable RADIOLOGY DEPARTMENT: General X-ray: Exam(s) Completed: Lower Extremity X-Ray(s): Knee, AP / Lat / Merchant Bilateral and Wt. Bearing PERIPHERAL IV DATA: Not applicable SIGNED BY: LOLIS Long January 03, 2023 2:48 PMM[facility] [id number] History of Present illness Narrative* Arnol Jonas MD - 01/03/2023 3:14 PM EDTAssociated Order(s): Large Joint Arthro/Inj: R knee joint Post-Procedure Diagnose(s): Primary osteoarthritis of right knee Orthopaedic Office Note: January 03, 2023 3:18 PM Janay Frederick 72 year old History: Janay is a 72-year-old woman with severe right knee osteoarthritis. She is here for continued conservative management. Subjective: Right knee pain and popping Updated ROS: No changes Updated Exam: Right lower Extremity Valgus deformity, not correctable Range of motion 0 to 110 degrees Crepitance with range of motion Mild effusion Tender palpation medial lateral joint line and lateral femoral condyle Patellofemoral crepitance Updated Imaging: There are right knee osteoarthritis Assessment and Plan: Janay is severe right knee osteoarthritis. She would like to try corticosteroid injection today.Risks and benefits were discussed as well as a verbal consent obtained. Can follow-up every 3 to 4 months for this. I spent a total of approximately 15 minutes on the date of the service which included preparing to see the patient, [id number] patient care, completing clinical documentation, obtaining and/or reviewing separately obtained history, performing a medically appropriate examination, counseling and educating the patient/family/caregiver, and care coordination (not separately reported). Large Joint Arthro/Inj: R knee joint Informed Consent Consent Obtained: Verbal [place] Protocol A moment to CARE was completed. SIGN IN Personnel directly involved with the procedure wore the appropriate PPE. Special Equipment: N/A Patient/Surrogate Stated/Verified: Patient name, Date of , Relevant allergies and Intended procedure TIME OUT Intended patient and procedure match the source document(s). Relevant labs, photos, and/or imaging studies have been reviewed. Correct side/site marked and visible. Medications required for procedure verified. 01/03/2023 3:19 PM The procedure site was prepped in the usual sterile fashion. Site: R knee joint Medications: 12 mg betamethasone acetate-betamethasone sodium phosphate 6 mg/mL Anesthetics: 4 mL lidocaine (PF) 10 mg/mL (1 %) Outcome: Tolerated well, no immediate complications Post-injection instructions were reviewed with the patient and the patient voiced understanding of these instructions. SIGN OUT All instruments, equipment, possible retained foreign bodies accounted for. Arnol Jonas MD Orthopaedic Surgery documented in this encounterCity Hospital05-31-2023 Miscellaneous Notes* Telephone Encounter - Kassandra Sharma APRN.CNP - 12/19/2022 7:25 PM EDT PDMP website checked and validated. All prescriptions have been APPROPRIATELY filled. No suspiciousactivity was identified. 12/19/2022 by Kassandra Sharma APRN.CNP * Telephone Encounter - Asia Naranjo Pss - 12/19/2022 3:33 PM EDT Tamara is syncing her meds through [facility] and needs to scripts on these 3 meds. * Telephone Encounter - Asia Riojas - 12/19/2022 3:32 PM EDT Pharmacy verified in [facility] Patient has been identified by name and date of : Yes Patient aware RX will be sent to pharmacy. No need to notify patient. Patient phones for refill(s): Requested Prescriptions Pending Prescriptions Disp Refills gabapentin (NEURONTIN) 300 mg capsule 180 capsule 0 Sig: Take 1 capsule by mouth twice daily for 90 days. dilTIAZem CD (CARTIA XT) 300 mg 24 hr capsule 90 capsule 3 Sig: Take 1 capsule by mouth once daily. furosemide (LASIX) 40 mg tablet 90 tablet 1 Sig: Take 1 tablet by mouth once daily. Date of last office visit : 11/13/2022 Labs-12/03/22 Date of next office visit : 02/12/2023 Last 2 Encounter Wt Readings: Date: Wt: 09/12/2022 92.4 kg (203 lb 12.8 oz) 08/17/2022 89.4 kg (197 lb) Not applicable Please advise. Asia Naranjo Pss documented in this encounterCity Hospital05-08-2023 NoteHNO ID: [id number] Author: Leydi Vance MD Service: ? Author Type: Physician Type: Progress Notes Filed: 11/28/2022 9:14 PM Note Text: [facility] Leydi Vance M.D. [address] [place] [id number] Name: Janay Frederick Clinic Number: [id number] Date of Service: November 26, 2022 Janay Frederick has been referred by Dr. Hayden Flanagan for evaluation of hyperparathyroidism. My assessment and recommendation for this patient will be communicated via shared medical records. Thank you for referring this patient to me. As you know, she is a 72 year old woman who was found to have elevated calcium levels during routine evaluation. She was previously on calcium supplement but the level was still high after stopping it. Subsequently biochemical workup also revealed an elevated PTH level. The diagnosis of primary hyperparathyroidism was made, and she was referred here for further evaluation. Looking back, her calcium levels have been high for 3 years. Ms. Janay Frederick has multiple medical issues including a history of stroke in her 30s from OCP use, she is not currently on any anticoagulant. She has also GERD and a history of gastric band. She denies issues with prior anesthesia Her medication list was reviewed today and she has allergy to Flagyl AND HCTZ. In terms of family history, she has an aunt with thyroid disease. And she has had no personal history of head and neck radiation. She is not a smoker. And she is and is retired. She is independent and drives. In terms of symptoms related to hyperparathyroidism, she reports the following symptoms: osteoporosis. Additional review of system showed the following pertinent findings: fatigue-no, weight problems-no (weight gain after stroke 2/2 mobility difficulties), skin rash-sometimes but nothing new and currently being treated, shortness of breath-no, chest pain-no, heartburn/reflux-yes (worse over the past 3-4 months), bleeding problems or easy bruising-yes (subjective easy bruising), headaches-yes (chronic migraines), anxiety-no and depression-no. In reviewing her biochemical studies, Ms. Janay Frederick has had elevated serum calcium levels since roughly 2014. Her most recent biochemical studies from 09/05/22 revealed a serum calcium of 11.0 (nl 8.5-10.2), corresponding PTH of 108 (nl <65), phosphorous of 3.1, ionized calcium of 1.44 [09/11/21] (nl <1.30), 25-dihydroxyvitamin D level of 37.2 (nl 31-80) and 1,25-dihydroxyvitamin D level not performed. On 11/26/2022, her 24-hour urinary calcium is ordered but has not been collected yet. She has not had a parathyroid scan. The most recent bone density scan on 09/11/21 revealed a T-score of -2.6 of the left femoral neck, which was the lowest T-score, consistent with osteoporosis. On physical exam, Ms. Janay Frederick is a well appearing, alert and oriented woman who looks euthyroid. She arrived in a wheelchair today but was able to ambulate to the exam table on her own. She does not have glasses. There is no obvious skin rash or lesions. On inspection the skin over the anterior neck is smooth, no mass is visualized . Palpation revealed neck to be supple, thyroid gland is palpable and overall normal in size. No lymphadenopathy was palpated on either side of the neck. The heart is regular rate and rhythm and she breathes with ease at rest. There is no obvious extremity deformity. A neck US was performed in the procedure room today. This revealed the thyroid gland to be overall normal in size, with fine echogenicity. There are multiple small thyroid nodule(s) seen. There is a hypoechoic nodule measuring 0.94 x 0.68 x 0.45 cm located below the left thyroid lobe, this is suggestive of a left lower parathyroid adenoma. There was no other area seen on ultrasound to suggest an abnormal parathyroid gland. There are no lymph nodes seen in the lateral neck compartments bilaterally. Assessment/Plan: This is a 72 year old patient with biochemical studies that shows primary hyperparathyroidism. Given her clinical findings of osteoporosis, she would be best served by undergoing a parathyroid exploration. The surgical procedure, including the risks and benefits were discussed with the patient. In addition, she will need to undergo pre-operative testing to clear her for surgery. All her questions have been answered today. And she will contact my office if there is any additional questions. I appreciate being involved in the care of your patient and please feel free to contact me should you have any questions or concerns. Leydi Vance [facility]05-08-2023 History of Present illness Narrative* Leydi Vance MD - 11/26/2022 1:38 PM EDT [facility] Leydi Vance M.D. [address] [id number] Name: Janay Frederick Clinic Number: [id number] Date of Service: November 26, 2022 Janay Frederick has been referred by Dr. Hayden Flanagan for evaluation of hyperparathyroidism. My assessment and recommendation for this patient will be communicated via shared medical records. Thank you for referring this patient to me. As you know, she is a 72 year old woman who was found to have elevated calcium levels during routine evaluation. She was previously on calcium supplement but the level was still high after stopping it. Subsequently biochemical workup also revealed an elevated PTH level. The diagnosis of primary hyperparathyroidism was made, and she was referred here forfurther evaluation. Looking back, her calcium levels have been high for 3 years. Ms. Janay Frederick has multiple medical issues including a history of stroke in her 30s from OCPuse, she is not currently on any anticoagulant. She has also GERD and a history of gastric band. She denies issues with prior anesthesia Her medication list was reviewed today and she has allergy to Flagyl & HCTZ. In terms of family history, she has an aunt with thyroid disease. And she has had no personal history of head and neck radiation. She is not a smoker. And she is and is retired. She is independent and drives. In terms of symptoms related to hyperparathyroidism, she reports the following symptoms: osteoporosis. Additional review of system showed the following pertinent findings: fatigue-no, weight problems-no(weight gain after stroke 2/2 mobility difficulties), skin rash-sometimes but nothing new and currently being treated, shortness of breath- no, chest pain-no, heartburn/reflux-yes (worse over the past3-4 months), bleeding problems or easy bruising-yes (subjective easy bruising), headaches-yes (chronic migraines), anxiety-no and depression-no. In reviewing her biochemical studies, Ms. Janay Frederick has had elevated serum calcium levels since roughly 2014. Her most recent biochemical studies from 09/05/22 revealed a serum calcium of 11.0(nl 8.5-10.2), corresponding PTH of 108 (nl <65), phosphorous of 3.1, ionized calcium of 1.44 [09/11/21] (nl <1.30), 25-dihydroxyvitamin D level of 37.2 (nl 31-80) and 1,25-dihydroxyvitamin D level not performed. On 11/26/2022, her 24-hour urinary calcium is ordered but has not been collected yet. She has not had a parathyroid scan. The most recent bone density scan on 09/11/21 revealed a T-scoreof -2.6 of the left femoral neck, which was the lowest T- score, consistent with osteoporosis. On physical exam, Ms. Janay Frederick is a well appearing, alert and oriented woman who looks euthyroid. She arrived in a wheelchair today but was able to ambulate to the exam table on her own. Shedoes not have glasses. There is no obvious skin rash or lesions. On inspection the skin over the anterior neck is smooth, no mass is visualized . Palpation revealed neck to be supple, thyroid gland is palpable and overall normal in size. No lymphadenopathy was palpated on either side of the neck. The heart is regular rate and rhythm and she breathes with ease at rest. There is no obvious extremity deformity. A neck US was performed in the procedure room today. This revealed the thyroid gland to be overall normal in size, with fine echogenicity. There are multiple small thyroid nodule(s) seen. There is a hypoechoic nodule measuring 0.94 x 0.68 x 0.45 cm located below the left thyroid lobe, this is suggestive of a left lower parathyroid adenoma. There was no other area seen on ultrasound to suggest an abnormal parathyroid gland. There are no lymph nodes seen in the lateral neck compartments bilaterally. Assessment/Plan: This is a 72 year old patient with biochemical studies that shows primary hyperparathyroidism. Given her clinical findings of osteoporosis, she would be best served by undergoing a parathyroid exploration. The surgical procedure, including the risks and benefits were discussed withthe patient. In addition, she will need to undergo pre-operative testing to clear her for surgery. All her questions have been answered today. And she will contact my office if there is any additional questions. I appreciate being involved in the care of your patient and please feel free to contact me should you have any questions or concerns. Leydi Vance MD documented in this encounterCity Hospital05-08-2023 Instructions* Patient Instructions* Amparo Jeffries Ma - 11/26/2022 1:30 PM EDT [facility]ology[facility] Diabetes and Metabolism. Did you know that you need to call 48 hours in advance of your scheduled visit, if you are unable to make your appointment? The [facility] [place] thanks you for your commitment, because patients not showing to their appointment results in a lost opportunity for patients to receive world class [facility] at the [facility]. To Cancel an appointment, please choose one of the following: - Call the Appointment Call Center at [phone] - From [facility], Go to Appointments - Cancel Appts If cancelling, consider your need to reschedule to prevent further delays in your care. To Schedule an appointment, please choose one of the following: - Call the Appointment Call Center at [phone] - From [facility], Go to Appointments - Request an Appt documented in this encounterCity Hospital05-04-2023 Miscellaneous Notes* Telephone Encounter - Ita Ferrera - 11/22/2022 11:53 AM EDT Contacted patient and rescheduled appointment. * Telephone Encounter - Crystal Trujilloc - 11/22/2022 11:14 AM EDT Patient left a message stating that she needs to change her appointment she has scheduled with Drea tomorrow, 11-23-2022. Please give her a call and assist with rescheduling. Thank you. Crystal Mendoza Sedc documented in this encounterCity Hospital05-02-2023 Miscellaneous Notes* Telephone Encounter - Liv Hayes RN - 11/20/2022 3:02 PM EDT Macy with the [facility] calls to request last OV noted be faxed to go with wound care referral received. Faxed to [phone] per request. Liv Hayes RN documented in this encounterCity Hospital04-27-2023 Miscellaneous Notes* Telephone Encounter - Sole Toro LPN - 11/15/2022 2:36 PM EDT Spoke with pt and information listed below given. Pt verbalizes understanding. Sole Toro LPN * Telephone Encounter - Shorty Teresa MD - 11/15/2022 1:16 PM EDT That should be OK. Continue treatment at home as we discussed and call if wound is worsening. * Telephone Encounter - Tarsha Hernández RN - 11/15/2022 11:57 AM EDT Patient calls and states that she had made an appointment with [facility] and she could not get into see them until 11/29/2022. Patient asking if this is ok? Please review and advise, Tarsha Hernández RN documented in this encounterCity Hospital04-25-2023 NoteHNO ID: [id number] Author: Shorty Teresa MD Service: ? Author Type: Physician Type: Progress Notes Filed: 11/13/2022 2:38 PM Note Text: Chief Complaint Patient presents with: Follow Up: 1 week on left leg HPI Janay Frederick is a 72 year old female who presents here today for Above Complaints.. Evaluated 1 week ago for skin tear on her left lower leg with clear drainage. Was treated with mupirocin ointment and referred to wound care in case this did not heal as expected. Today, states she has been using the abx ointment BID and keeping covered with gauze. Drainage is improving. Not sure if the wound is healing much. Has not scheduled with wound care yet. Past medical history, appointments, medications, allergies reviewed. Previous Medical History PAST MEDICAL HISTORY Diagnosis Date BCC (basal cell carcinoma of skin) Chronic lower back pain Dr. Nur Gastric band slippage Dr. Garcia, removed 11/06 Gastric ulcer, unspecified as acute or chronic, without mention of hemorrhage or perforation, with obstruction Generalized osteoarthrosis, unspecified site back GERD (gastroesophageal reflux disease) Hyperparathyroidism (HCC) Insomnia Knee pain, chronic Lumbago Migraine without aura on diltiazem Obesity, unspecified stated BMI 40.5 HT: 61.5 WT: 220 Osteopenia of multiple sites Overactive bladder Personal history of unspecified urinary disorder years ago since last bladder infection SCC (squamous cell carcinoma) Stroke (HCC) 12/06/1981 cva left side residual, young at age 31, likely 2/2 OCPs Unspecified hemorrhoids without mention of complication Hemorrhoids Urinary urgency Uterine prolapse s/p hysterectomy Venous incompetence bilaterally, f/u Dr. Maravilla Vitamin D deficiency Previous Surgical History PAST SURGICAL HISTORY Procedure Laterality Date ARTHRP KNE CONDYLEANDPLATU MEDIALANDLAT COMPARTMENTS Left 03/17/2014 Knee replacement, total left COLONOSCOPY FLX DX W/COLLJ SPEC WHEN PFRMD 02/08/2005 Colonoscopy COLONOSCOPY FLX DX W/COLLJ SPEC WHEN PFRMD 02/24/15 Colonoscopy EGD DILATION GASTRIC/DUODENAL STRICTURE 12/20/09 ESOPHAGOGASTRODUODENOSCOPY TRANSORAL DIAGNOSTIC 11/27/13 EGD HYSTERECTOMY 10/2107 pelvic organ prolapse LAPAROSCOPY SURG CHOLECYSTECTOMY 2004 Cholecystectomy, lap LAPS GASTRIC RESTRICTIVE PROCEDURE PLACE DEVICE 04/21/2010 Performed by THI ALCOCER at [facility] LAPS RPR PARAESPHGL HRNA INCL FUNDPLSTY W/O MESH 04/21/2010 Performed by THI ALCOCER at [facility] MAL LESION FACE,EAR,EYEL 1.1-2CM 01/28/06 Left cheek and right forearm lesions PAST SURGICAL HISTORY OF July 06, 2009 Hysteroscopy DANDC PAST SURGICAL HISTORY OF 10/2017 vaginal vault suspension PAST SURGICAL HISTORY OF 10/2017 Lap band removed UNLIS LAPAROSCOPIC PROCEDURE LIVER 04/21/2010 Performed by THI ALCOCER at [facility] Family History FAMILY HISTORY Problem Relation Age of Onset Hypertension Mother Diabetes Mother Breast Cancer Mother Heart Mother a fib Diabetes Father Heart Father angioplasty Blood Disease Brother Hairy Cell Leukemia Prostate Cancer Brother Blood Disease Maternal Grandmother Leukemia None Brother Hypertension Maternal Uncle Prostate Cancer Maternal Uncle Hypertension Maternal Aunt Patient Allergies ALLERGIES Allergen Reactions Flagyl [Metronidazo* GI Upset Severe nausea, malaise, dizziness Hctz [Thiazides] Other: See Comments hypercalcemia Current Medications Current Outpatient Medications on File Prior to Visit Medication Sig mupirocin (BACTROBAN) 2 % ointment Apply to affected area twice daily for 10 days. omeprazole (PRILOSEC) 40 mg capsule Take 1 capsule by mouth once daily. gabapentin (NEURONTIN) 300 mg capsule Take 1 capsule by mouth twice daily for 90 days. estradiol (ESTRACE) 0.01 % (0.1 mg/gram) vaginal cream Finger - Tip amount at bedtime as directed for 2 weeks, then every other day furosemide (LASIX) 40 mg tablet Take 1 tablet by mouth once daily. hydrocortisone 2.5 % ointment Apply to affected area twice daily as needed (hemorrhoids). ondansetron orally disintegrating (ZOFRAN ODT) 4 mg disintegrating tablet Take 1 tablet by mouth every 6 hours as needed for nausea/vomiting. tolterodine ER (DETROL LA) 4 mg 24 hr capsule Take 1 capsule by mouth once daily. atorvastatin (LIPITOR) 10 mg tablet Take 1 tablet by mouth once daily. Discontinue simvastatin amitriptyline (ELAVIL) 75 mg tablet Take 1 tablet by mouth daily at bedtime. potassium chloride (K-TAB) 10 mEq tablet Take 1 tablet by mouth once daily. dilTIAZem CD (CARTIA XT) 300 mg 24 hr capsule Take 1 capsule by mouth once daily. naloxone 4 mg/actuation nasal spray (NARCAN) 1 [place] by nasal (alternating) route as needed for known or suspected opioid overdose. Use 1 spray in one nostril as needed for overdose. May repeat every 2 to 3 min in alternating (more content not included)...[facility] 11-13-2022 History of Present illness Narrative* Shorty Teresa MD - 11/13/2022 2:06 PM EDT Chief Complaint Patient presents with: Follow Up: 1 week on left leg HPI Janay Frederick is a 72 year old female who presents here today for Above Complaints.. Evaluated 1 week ago for skin tear on her left lower leg with clear drainage. Was treated with mupirocin ointment and referred to wound care in case this did not heal as expected. Today, states she has been using the abx ointment BID and keeping covered with gauze. Drainage is improving. Not sure if the wound is healing much. Has not scheduled with wound care yet. Past medical history, appointments, medications, allergies reviewed. Previous Medical History PAST MEDICAL HISTORY Diagnosis Date BCC (basal cell carcinoma of skin) Chronic lower back pain Dr. Nur Gastric band slippage Dr. Garcia, removed 11/06 Gastric ulcer, unspecified as acute or chronic, without mention of hemorrhage or perforation, with obstruction Generalized osteoarthrosis, unspecified site back GERD (gastroesophageal reflux disease) Hyperparathyroidism (HCC) Insomnia Knee pain, chronic Lumbago Migraine without aura on diltiazem Obesity, unspecified stated BMI 40.5 HT: 61.5 WT: 220 Osteopenia of multiple sites Overactive bladder Personal history of unspecified urinary disorder years ago since last bladder infection SCC (squamous cell carcinoma) Stroke (HCC) 12/06/1981 cva left side residual, young at age 31, likely 2/2 OCPs Unspecified hemorrhoids without mention of complication Hemorrhoids Urinary urgency Uterine prolapse s/p hysterectomy Venous incompetence bilaterally, f/u Dr. Maravilla Vitamin D deficiency Previous Surgical History PAST SURGICAL HISTORY Procedure Laterality Date ARTHRP KNE CONDYLE&PLATU MEDIAL&LAT COMPARTMENTS Left 03/17/2014 Knee replacement, total left COLONOSCOPY FLX DX W/COLLJ SPEC WHEN PFRMD 02/08/2005 Colonoscopy COLONOSCOPY FLX DX W/COLLJ SPEC WHEN PFRMD 02/24/15 Colonoscopy EGD DILATION GASTRIC/DUODENAL STRICTURE 12/20/09 ESOPHAGOGASTRODUODENOSCOPY TRANSORAL DIAGNOSTIC 11/27/13 EGD HYSTERECTOMY 10/2107 pelvic organ prolapse LAPAROSCOPY SURG CHOLECYSTECTOMY 2004 Cholecystectomy, lap LAPS GASTRIC RESTRICTIVE PROCEDURE PLACE DEVICE 04/21/2010 Performed by THI ALCOCER at [facility] LAPS RPR PARAESPHGL HRNA INCL FUNDPLSTY W/O MESH 04/21/2010 Performed by THI ALCOCER at [facility] MAL LESION FACE,EAR,EYEL 1.1-2CM 01/28/06 Left cheek and right forearm lesions PAST SURGICAL HISTORY OF July 06, 2009 Hysteroscopy D&C PAST SURGICAL HISTORY OF 10/2017 vaginal vault suspension PAST SURGICAL HISTORY OF 10/2017 Lap band removed UNLIS LAPAROSCOPIC PROCEDURE LIVER 04/21/2010 Performed by THI ALCOCER at [facility] Family History FAMILY HISTORY Problem Relation Age of Onset Hypertension Mother Diabetes Mother Breast Cancer Mother Heart Mother a fib Diabetes Father Heart Father angioplasty Blood Disease Brother Hairy Cell Leukemia Prostate Cancer Brother Blood Disease Maternal Grandmother Leukemia None Brother Hypertension Maternal Uncle Prostate Cancer Maternal Uncle Hypertension Maternal Aunt Patient Allergies ALLERGIES Allergen Reactions Flagyl [Metronidazo* GI Upset Severe nausea, malaise, dizziness Hctz [Thiazides] Other: See Comments hypercalcemia Current Medications Current Outpatient Medications on File Prior to Visit Medication Sig mupirocin (BACTROBAN) 2 % ointment Apply to affected area twice daily for 10 days. omeprazole (PRILOSEC) 40 mg capsule Take 1 capsule by mouth once daily. gabapentin (NEURONTIN) 300 mg capsule Take 1 capsule by mouth twice daily for 90 days. estradiol (ESTRACE) 0.01 % (0.1 mg/gram) vaginal cream Finger - Tip amount at bedtime as directed for 2 weeks, then every other day furosemide (LASIX) 40 mg tablet Take 1 tablet by mouth once daily. hydrocortisone 2.5 % ointment Apply to affected area twice daily as needed (hemorrhoids). ondansetron orally disintegrating (ZOFRAN ODT) 4 mg disintegrating tablet Take 1 tablet by mouth every 6 hours as needed for nausea/vomiting. tolterodine ER (DETROL LA) 4 mg 24 hr capsule Take 1 capsule by mouth once daily. atorvastatin (LIPITOR) 10 mg tablet Take 1 tablet by mouth once daily. Discontinue simvastatin amitriptyline (ELAVIL) 75 mg tablet Take 1 tablet by mouth daily at bedtime. potassium chloride (K-TAB) 10 mEq tablet Take 1 tablet by mouth once daily. dilTIAZem CD (CARTIA XT) 300 mg 24 hr capsule Take 1 capsule by mouth once daily. naloxone 4 mg/actuation nasal spray (NARCAN) 1 [place] by nasal (alternating) route as needed for known or suspected opioid overdose. Use 1 spray in one nostril as needed for overdose. May repeat every2 to 3 min in alternating nostrils until medical assistance is available HYDROcodone-acetaminophen (NORCO) 5-325 mg per tablet Take 3 tablets by mouth as needed. docusate sodium (COLACE) 100 mg capsule Take 1 capsule by mouth twice daily. cholecalciferol (VITAMIN D3) 50 mcg (2,000 unit) tablet Take 2,000 Units by mouth once daily. multivitamin tablet Take 1 tablet by mouth once daily. zoledronic acid (RECLAST) 5 mg/100 mL pgbk PREMIX piggyback Inject 100 mL intravenously one time only for 1 dose. No current facility-administered medications on file prior to visit. Social History Social History Tobacco Use Smoking status: Never Smokeless tobacco: Never Vaping Use Vaping Use: Never used Substance Use Topics Alcohol use: No Drug use: No Review of Symptoms REVIEW OF SYSTEMS GENERAL: No weight loss, malaise or fevers SKIN: See HPI EXAM: BP 138/72 Pulse 88 Resp 16 SpO2 96% General Appearance: Well appearing, alert, in no acute distress, well-hydrated, well nourished.. Skin: Shallow 1-2 cm skin tear on left anterior vega without bleeding or cellulitis. Does have clear drainage 2/2 chronic LE swelling. Health Maintenance List SHINGRIX VACCINE(1 of 2) Never done ADVANCE DIRECTIVE DISCUSSION Never done MAMMOGRAM due on 04/26/2023 COLORECTAL CANCER SCREENING due on 02/24/2025 DIABETES SCREEN due on 09/21/2025 DTAP,TDAP,TD(4 - Td or Tdap) due on 10/09/2026 LIPID SCREEN due on 01/31/2027 BONE DENSITY Completed INFLUENZA Completed DEPRESSION ASSESSMENT Completed HEPATITIS C SCREENING Completed COVID-19 VACCINE Completed PNEUMOCOCCAL: 65+ Completed ASSESSMENT/PLAN: 1. Skin tear of left lower leg without complication, initial encounter - ICD9: 891.0, ICD10: S81.812A (primary diagnosis) No new infection, but wound has not changed in the last week. With continued clear drainage from lymphedema, I would recommend close f/u with wound care at [facility]. Red flags for re-assessment reviewed with patient in detail. 2. Bilateral lower extremity edema - ICD9: 782.3, ICD10: R60.0 Continue with compression stockings, leg elevation with rest, and lasix as prescribed. Shorty Teresa MD documented in this encounterCity Hospital04-18-2023 NoteHNO ID: [id number] Author: Shorty Teresa MD Service: ? Author Type: Physician Type: Progress Notes Filed: 11/06/2022 4:18 PM Note Text: Chief Complaint Patient presents with: Derm Problem: Patient reports phone punctured/lacerated vega. W slight achiness. Leg continues to seep.- reports 2 falls this week. HPI Janay Frederick is a 72 year old female who presents here today for Above Complaints. History of stroke with left sided weakness and chronic left LE edema. Patient states that she dropped her cell phone onto her left vega around 3am which caused small laceration and bled for about 30-45 minutes and then drained clear fluid. Has been treating with triple abx ointment and applying gauze and wrapping with coban. Notes that last week she slid down the side of her bed twice when trying to stand up and get to her bedside commode. Has some bruising on her lower back from rubbing against a wooden slat on the side of her bed. Put rubber pad down on the side of her bed and has not slid since. Using cane for ambulation and feels steady on her feet. Past medical history, appointments, medications, allergies reviewed. Previous Medical History PAST MEDICAL HISTORY Diagnosis Date BCC (basal cell carcinoma of skin) Chronic lower back pain Dr. Nur Gastric band slippage Dr. Garcia, removed 11/06 Gastric ulcer, unspecified as acute or chronic, without mention of hemorrhage or perforation, with obstruction Generalized osteoarthrosis, unspecified site back GERD (gastroesophageal reflux disease) Hyperparathyroidism (HCC) Insomnia Knee pain, chronic Lumbago Migraine without aura on diltiazem Obesity, unspecified stated BMI 40.5 HT: 61.5 WT: 220 Osteopenia of multiple sites Overactive bladder Personal history of unspecified urinary disorder years ago since last bladder infection SCC (squamous cell carcinoma) Stroke (HCC) 12/06/1981 cva left side residual, young at age 31, likely 2/2 OCPs Unspecified hemorrhoids without mention of complication Hemorrhoids Urinary urgency Uterine prolapse s/p hysterectomy Venous incompetence bilaterally, f/u Dr. Maravilla Vitamin D deficiency Previous Surgical History PAST SURGICAL HISTORY Procedure Laterality Date ARTHRP KNE CONDYLEANDPLATU MEDIALANDLAT COMPARTMENTS Left 03/17/2014 Knee replacement, total left COLONOSCOPY FLX DX W/COLLJ SPEC WHEN PFRMD 02/08/2005 Colonoscopy COLONOSCOPY FLX DX W/COLLJ SPEC WHEN PFRMD 02/24/15 Colonoscopy EGD DILATION GASTRIC/DUODENAL STRICTURE 12/20/09 ESOPHAGOGASTRODUODENOSCOPY TRANSORAL DIAGNOSTIC 11/27/13 EGD HYSTERECTOMY 10/2107 pelvic organ prolapse LAPAROSCOPY SURG CHOLECYSTECTOMY 2004 Cholecystectomy, lap LAPS GASTRIC RESTRICTIVE PROCEDURE PLACE DEVICE 04/21/2010 Performed by THI ALCOCER at [facility] LAPS RPR PARAESPHGL HRNA INCL FUNDPLSTY W/O MESH 04/21/2010 Performed by THI ALCOCER at [facility] MAL LESION FACE,EAR,EYEL 1.1-2CM 01/28/06 Left cheek and right forearm lesions PAST SURGICAL HISTORY OF July 06, 2009 Hysteroscopy DANTX PAST SURGICAL HISTORY OF 10/2017 vaginal vault suspension PAST SURGICAL HISTORY OF 10/2017 Lap band removed UNLIS LAPAROSCOPIC PROCEDURE LIVER 04/21/2010 Performed by THI ALCOCER at [facility] Family History FAMILY HISTORY Problem Relation Age of Onset Hypertension Mother Diabetes Mother Breast Cancer Mother Heart Mother a fib Diabetes Father Heart Father angioplasty Blood Disease Brother Hairy Cell Leukemia Prostate Cancer Brother Blood Disease Maternal Grandmother Leukemia None Brother Hypertension Maternal Uncle Prostate Cancer Maternal Uncle Hypertension Maternal Aunt Patient Allergies ALLERGIES Allergen Reactions Flagyl [Metronidazo* GI Upset Severe nausea, malaise, dizziness Hctz [Thiazides] Other: See Comments hypercalcemia Current Medications Current Outpatient Medications on File Prior to Visit Medication Sig omeprazole (PRILOSEC) 40 mg capsule Take 1 capsule by mouth once daily. gabapentin (NEURONTIN) 300 mg capsule Take 1 capsule by mouth twice daily for 90 days. estradiol (ESTRACE) 0.01 % (0.1 mg/gram) vaginal cream Finger - Tip amount at bedtime as directed for 2 weeks, then every other day furosemide (LASIX) 40 mg tablet Take 1 tablet by mouth once daily. hydrocortisone 2.5 % ointment Apply to affected area twice daily as needed (hemorrhoids). ondansetron orally disintegrating (ZOFRAN ODT) 4 mg disintegrating tablet Take 1 tablet by mouth every 6 hours as needed for nausea/vomiting. tolterodine ER (DETROL LA) 4 mg 24 hr capsule Take 1 capsule by mouth once daily. atorvastatin (LIPITOR) 10 mg tablet Take 1 tablet by mouth once daily. Discontinue simvastatin amitriptyline (ELAVIL) 75 mg tablet Take 1 tablet by mouth daily at bedtime. potassium chloride (K-TAB) 10 mEq tablet Take 1 tablet by mouth once daily. (more content not included)...[facility]03-03-2023 Miscellaneous Notes* Telephone Encounter - Marlene Loaiza LPN - 09/21/2022 3:29 PM EST ELDER 08/13/22 No upcoming appointment scheduled. Marlene Loaiza LPN * Telephone Encounter - Mickie Babcock Pss - 09/21/2022 1:55 PM EST Patient has been identified by name and date of : Yes Requested Prescriptions Pending Prescriptions Disp Refills omeprazole (PRILOSEC) 40 mg capsule 30 capsule 5 Sig: Take 1 capsule by mouth once daily. gabapentin (NEURONTIN) 300 mg capsule 180 capsule 0 Sig: Take 1 capsule by mouth twice daily for 90 days. RX INSTRUCTIONS: Patient aware RX will be sent to pharmacy. No need to notify patient. Mickie Babcock Pss documented in this encounterCity Hospital03-03-2023 Miscellaneous Notes* Telephone Encounter - Shorty Teresa MD - 09/21/2022 9:57 AM EST Needing order for BMP stat prior to reclast. Order placed as requested. documented in this encounterCity Hospital02-23-2023 Miscellaneous Notes* Telephone Encounter - Tarsha Leigh - 09/13/2022 1:31 PM EST Spoke with patient and scheduled. Tarsha Leigh * Addendum Note - France Hadley RPh - 09/13/2022 1:01 PM ESTAddended by: FRANCE HADLEY on: 09/13/2022 01:01 PM Modules accepted: Orders * Telephone Encounter - Tarsha Leigh - 09/13/2022 12:47 PM EST Please convert to Swiss for scheduling/prior auth purposes and reroute to [facility] HEM[facility] PSR for scheduling. Thank you. Tarsha Leigh * Telephone Encounter - Yael Flores LPN - 09/13/2022 12:25 PM EST Phoned patient and advised her order was placed and directed her to scheduling. * Telephone Encounter - Shorty Teresa MD - 09/13/2022 11:32 AM EST Rx reordered. Please assist with infusion scheduling. * Telephone Encounter - Sole Toro LPN - 09/13/2022 10:59 AM EST Pt called for the following: Pt saw Dr. Flanagan and he instructed pt to get a Recalst Infusion and pt is asking for you to put orders in. Pt reports you had ordered this in the past for her to have done. Please advise pt. 2. FYI: Dr. Flanagan wants to pt see a Endo Surgeon to have her parathyroid removed. Pt's calcium is still high in her blood and she was instructed that one or more parathyroid may not be working. Sole Toro LPN documented in this encounterCity Hospital02-23-2023 Miscellaneous Notes* Telephone Encounter - Judy Roldan Ma - 09/13/2022 1:20 PM EST Called and spoke with PT, expressed understanding Gave patient phone number to call and make appt with 's office at [phone]. CLOSED * Telephone Encounter - Hayden Flanagan MD - 09/13/2022 12:03 PM EST Placed the referral. She can see Dr. Leydi Vance. If you could give her the number to call and schedule Thank you HH * Telephone Encounter - Kassandra Salinas - 09/13/2022 11:12 AM EST Patient called with her decision that she would like to see a thyroid surgeon as was discussed at her recent appointment. Patient is asking if Dr. Flanagan can please refer her to someone at [facility]. documented in this encounterCity Hospital02-22-2023 NoteHNO ID: [id number] Author: Hayden Flanagan MD Service: ? Author Type: Physician Type: Progress Notes Filed: 09/12/2022 6:06 PM Note Text: ENDOCRINOLOGY CLINIC NOTE Reason for visit Janay Frederick is a pleasant 72 year old female with history of CVA, dyslipidemia, osteoporosis and OA presented for follow-up of hypercalcemia HPI She has had mild hypercalcemia intermittently since 2014, with the highest total corrected calcium being 11.2, and iCa 1.48. PTH was suppressed at 15 in 2014 (with calcium 11 and iCa 1.41), and was inappropriately normal at 37 (with calcium 11 and iCa 1.43) on05/08/2021. Her PTHrP is normal and her 1,25OH vitamin D is not elevated. SPEP showed no M spike She was on Trimterene in the past but it was stopped because the of the high calcium. She was taking calcium pills that had 600 mg twice a day for 15 years, but she stopped taking them sometime in 01/2021. She also takes tums for heartburn, 2 tums a day or every other day. She reported heartburn for the last 2 years and rare abdominal discomfort. No muscle pains, polyuria or polydipsia, and no history of kidney stones. She slid and caught herself but no actual fall and no fractures since last visit. The plan was to receive the second Reclast infusion in 02/2022 but she forgot to schedule it DXA 08/2021: L spine T score 0.8 (stable) L TH T score -1.3 (stable) L FN T score -2.6 R TH T score -1.1 R FN T score -2.4 (decline) DXA 10/2018: L-spine T-score 0.7 (7% decline) L hip T score -1.2 (11% decline) L FN T-score -2.3 (stable) R hip T-score -1.1 (18.1% decline) R FN T-score -1.8 (12.4% decline) Fracture history: Lumbar compression fracture 15 years ago when she tripped and fell from a standing height. Thoracic compression fracture on DXA 2013 R wrist fracture 4-5 years ago when she fell from a standing height Treatment history (including any side effects/contraindications): Reclast 5 mg x1 in 01/2021 Family history of metabolic bone disease or fractures: None Risk factors: > Menstrual histor: - menarche: age 10-13 - last period:age 48 - periods were regular > Medication exposures/pertinent medical or social history: (Glucocorticoid, AED use, relevant medications, hyperthyroidism, kidney stone/disease, eating disorder, malabsorption, immobility, smoking, excessive alcohol use) She has limited mobility and uses a cane to ambulate to L sided weakness following the stroke Calcium/Vit D intake: Dietary calcium: yogurt and cheese occasionally Supplements: None Vitamin D intake: 2000 units daily Weight bearing exercise: Limited by the L sided weakness since the stroke Dental Procedure: She needs 2 teeth extraction but cost is an issue at the moment Radiation Exposure: None Past Medical History PAST MEDICAL HISTORY Diagnosis Date BCC (basal cell carcinoma of skin) Chronic lower back pain Dr. Nur Gastric band slippage Dr. Garcia, removed 11/06 Gastric ulcer, unspecified as acute or chronic, without mention of hemorrhage or perforation, with obstruction Generalized osteoarthrosis, unspecified site back GERD (gastroesophageal reflux disease) Hyperparathyroidism (HCC) Insomnia Knee pain, chronic Lumbago Migraine without aura on diltiazem Obesity, unspecified stated BMI 40.5 HT: 61.5 WT: 220 Osteopenia of multiple sites Overactive bladder Personal history of unspecified urinary disorder years ago since last bladder infection SCC (squamous cell carcinoma) Stroke (HCC) 12/06/1981 cva left side residual, young at age 31, likely 2/2 OCPs Unspecified hemorrhoids without mention of complication Hemorrhoids Urinary urgency Uterine prolapse s/p hysterectomy Venous incompetence bilaterally, f/u Dr. Maravilla Vitamin D deficiency Past Surgical History PAST SURGICAL HISTORY Procedure Laterality Date ARTHRP KNE CONDYLEANDPLATU MEDIALANDLAT COMPARTMENTS Left 03/17/2014 Knee replacement, total left COLONOSCOPY FLX DX W/COLLJ SPEC WHEN PFRMD 02/08/2005 Colonoscopy COLONOSCOPY FLX DX W/COLLJ SPEC WHEN PFRMD 02/24/15 Colonoscopy EGD DILATION GASTRIC/DUODENAL STRICTURE 12/20/09 ESOPHAGOGASTRODUODENOSCOPY TRANSORAL DIAGNOSTIC 11/27/13 EGD HYSTERECTOMY 10/2107 pelvic organ prolapse LAPAROSCOPY SURG CHOLECYSTECTOMY 2004 Cholecystectomy, lap LAPS GASTRIC RESTRICTIVE PROCEDURE PLACE DEVICE 04/21/2010 Performed by THI ALCOCER at [facility] LAPS RPR PARAESPHGL HRNA INCL FUNDPLSTY W/O MESH 04/21/2010 Performed by THI ALCOCER at [facility] MAL LESION FACE,EAR,EYEL 1.1-2CM 01/28/06 Left cheek and right forearm lesions PAST SURGICAL HISTORY OF July 06, 2009 Hysteroscopy DANTX PAST SURGICAL HISTORY OF 10/2017 vaginal vault suspension PAST SURGICAL HISTORY OF 10/2017 Lap band removed UNLIS LAPAROSCOPIC PROCEDURE LIVER 04/21/2010 Performed by THI ALCOCER at [facility] Medications Current Outpatient M (more content not included)...[facility] 09-12-2022 Instructions* Patient Instructions* Hayden Flanagan MD - 09/12/2022 4:33 PM EST - Please call [phone] and ask for the outpatient infusion to schedule your Recalst infusion - If you decided to meet with the parathyroid surgeon, please let me know documented in this encounterCity [facility] History of Present illness Narrative* Hayden Flanagan MD - 09/12/2022 4:20 PM EST ENDOCRINOLOGY CLINIC NOTE Reason for visit Janay Frederick is a pleasant 72 year old female with history of CVA, dyslipidemia, osteoporosis and OA presented for follow-up of hypercalcemia HPI She has had mild hypercalcemia intermittently since 2014, with the highest total corrected calcium being 11.2, and iCa 1.48. PTH was suppressed at 15 in 2014 (with calcium 11 and iCa 1.41), and was inappropriately normal at 37 (with calcium 11 and iCa 1.43) on05/08/2021. Her PTHrP is normal and her1,25OH vitamin D is not elevated. SPEP showed no M spike She was on Trimterene in the past but it was stopped because the of the high calcium. She was taking calcium pills that had 600 mg twice a day for 15 years, but she stopped taking them sometime in 01/2021. She also takes tums for heartburn, 2 tums a day or every other day. She reported heartburn for the last 2 years and rare abdominal discomfort. No muscle pains, polyuria or polydipsia, and no history of kidney stones. She slid and caught herself but no actual fall and no fractures since last visit. The plan was to receive the second Reclast infusion in 02/2022 but she forgot to schedule it DXA 08/2021: L spine T score 0.8 (stable) L TH T score -1.3 (stable) L FN T score -2.6 R TH T score -1.1 R FN T score -2.4 (decline) DXA 10/2018: L-spine T-score 0.7 (7% decline) L hip T score -1.2 (11% decline) L FN T-score -2.3 (stable) R hip T-score -1.1 (18.1% decline) R FN T-score -1.8 (12.4% decline) Fracture history: Lumbar compression fracture 15 years ago when she tripped and fell from a standing height. Thoracic compression fracture on DXA 2013 R wrist fracture 4-5 years ago when she fell from a standing height Treatment history (including any side effects/contraindications): Reclast 5 mg x1 in 01/2021 Family history of metabolic bone disease or fractures: None Risk factors: > Menstrual histor: - menarche: age 10-13 - last period:age 48 - periods were regular > Medication exposures/pertinent medical or social history: (Glucocorticoid, AED use, relevant medications, hyperthyroidism, kidney stone/disease, eating disorder, malabsorption, immobility, smoking, excessive alcohol use) She has limited mobility and uses a cane to ambulate to L sided weakness following the stroke Calcium/Vit D intake: Dietary calcium: yogurt and cheese occasionally Supplements: None Vitamin D intake: 2000 units daily Weight bearing exercise: Limited by the L sided weakness since the stroke Dental Procedure: She needs 2 teeth extraction but cost is an issue at the moment Radiation Exposure: None Past Medical History PAST MEDICAL HISTORY Diagnosis Date BCC (basal cell carcinoma of skin) Chronic lower back pain Dr. Nur Gastric band slippage Dr. Garcia, removed 11/06 Gastric ulcer, unspecified as acute or chronic, without mention of hemorrhage or perforation, with obstruction Generalized osteoarthrosis, unspecified site back GERD (gastroesophageal reflux disease) Hyperparathyroidism (HCC) Insomnia Knee pain, chronic Lumbago Migraine without aura on diltiazem Obesity, unspecified stated BMI 40.5 HT: 61.5 WT: 220 Osteopenia of multiple sites Overactive bladder Personal history of unspecified urinary disorder years ago since last bladder infection SCC (squamous cell carcinoma) Stroke (HCC) 12/06/1981 cva left side residual, young at age 31, likely 2/2 OCPs Unspecified hemorrhoids without mention of complication Hemorrhoids Urinary urgency Uterine prolapse s/p hysterectomy Venous incompetence bilaterally, f/u Dr. Maravilla Vitamin D deficiency Past Surgical History PAST SURGICAL HISTORY Procedure Laterality Date ARTHRP KNE CONDYLE&PLATU MEDIAL&LAT COMPARTMENTS Left 03/17/2014 Knee replacement, total left COLONOSCOPY FLX DX W/COLLJ SPEC WHEN PFRMD 02/08/2005 Colonoscopy COLONOSCOPY FLX DX W/COLLJ SPEC WHEN PFRMD 02/24/15 Colonoscopy EGD DILATION GASTRIC/DUODENAL STRICTURE 12/20/09 ESOPHAGOGASTRODUODENOSCOPY TRANSORAL DIAGNOSTIC 11/27/13 EGD HYSTERECTOMY 10/2107 pelvic organ prolapse LAPAROSCOPY SURG CHOLECYSTECTOMY 2004 Cholecystectomy, lap LAPS GASTRIC RESTRICTIVE PROCEDURE PLACE DEVICE 04/21/2010 Performed by THI ALCOCER at [facility] LAPS RPR PARAESPHGL HRNA INCL FUNDPLSTY W/O MESH 04/21/2010 Performed by THI ALCOCER at [facility] MAL LESION FACE,EAR,EYEL 1.1-2CM 01/28/06 Left cheek and right forearm lesions PAST SURGICAL HISTORY OF July 06, 2009 Hysteroscopy D&C PAST SURGICAL HISTORY OF 10/2017 vaginal vault suspension PAST SURGICAL HISTORY OF 10/2017 Lap band removed UNLIS LAPAROSCOPIC PROCEDURE LIVER 04/21/2010 Performed by THI ALCOCER at [facility] Medications Current Outpatient Medications Medication Sig estradiol (ESTRACE) 0.01 % (0.1 mg/gram) vaginal cream Finger - Tip amount at bedtime as directed for 2 weeks, then every other day furosemide (LASIX) 40 mg tablet Take 1 tablet by mouth once daily. gabapentin (NEURONTIN) 300 mg capsule Take 1 capsule by mouth twice daily for 90 days. hydrocortisone 2.5 % ointment Apply to affected area twice daily as needed (hemorrhoids). ondansetron orally disintegrating (ZOFRAN ODT) 4 mg disintegrating tablet Take 1 tablet by mouth every 6 hours as needed for nausea/vomiting. tolterodine ER (DETROL LA) 4 mg 24 hr capsule Take 1 capsule by mouth once daily. omeprazole (PRILOSEC) 40 mg capsule Take 1 capsule by mouth once daily. atorvastatin (LIPITOR) 10 mg tablet Take 1 tablet by mouth once daily. Discontinue simvastatin amitriptyline (ELAVIL) 75 mg tablet Take 1 tablet by mouth daily at bedtime. potassium chloride (K-TAB) 10 mEq tablet Take 1 tablet by mouth once daily. dilTIAZem CD (CARTIA XT) 300 mg 24 hr capsule Take 1 capsule by mouth once daily. naloxone 4 mg/actuation nasal spray (NARCAN) 1 [place] by nasal (alternating) route as needed for known or suspected opioid overdose. Use 1 spray in one nostril as needed for overdose. May repeat every2 to 3 min in alternating nostrils until medical assistance is available HYDROcodone-acetaminophen (NORCO) 5-325 mg per tablet Take 3 tablets by mouth as needed. docusate sodium (COLACE) 100 mg capsule Take 1 capsule by mouth twice daily. cholecalciferol (VITAMIN D3) 50 mcg (2,000 unit) tablet Take 2,000 Units by mouth once daily. multivitamin tablet Take 1 tablet by mouth once daily. Current Facility-Administered Medications Medication Dose Route Frequency zoledronic acid 5 mg PREMIX piggyback (RECLAST) 5 mg INTRAVENOUS ONCE (AMB - Up to 30 Days) The medication list in the chart was reviewed. Allergies ALLERGIES Allergen Reactions Flagyl [Metronidazo* GI Upset Severe nausea, malaise, dizziness Hctz [Thiazides] Other: See Comments hypercalcemia The allergy list in the chart was reviewed. Family History FAMILY HISTORY Problem Relation Age of Onset Hypertension Mother Diabetes Mother Breast Cancer Mother Heart Mother a fib Diabetes Father Heart Father angioplasty Blood Disease Brother Hairy Cell Leukemia Prostate Cancer Brother Blood Disease Maternal Grandmother Leukemia None Brother Hypertension Maternal Uncle Prostate Cancer Maternal Uncle Hypertension Maternal Aunt Social History Social History Tobacco Use Smoking status: Never Smokeless tobacco: Never Vaping Use Vaping Use: Never used Substance Use Topics Alcohol use: No Drug use: No Review of Systems: 10 point review of systems was negative other than what is mentioned in the H&P Physical Exam BP 135/75 Pulse 87 Ht 152.4 cm (5') Wt 92.4 kg (203 lb 12.8 oz) SpO2 97% BMI 39.80 kg/m Body mass index is 39.8 kg/m . Last 3 Encounter Ht Readings: Date: Ht: 12/27/2017 152.4 cm (5') 10/31/2017 152.4 cm (5') 10/11/2017 152.4 cm (5') General Appearance: Alert, cooperative, not in distress Previous exam: Head: Normocephalic, atraumatic Eyes: PERRL, conjunctiva/corneas clear, EOM's intact with no lid lag or proptosis Neck: Supple Cardiovascular: Regular rate and rhythm, no murmur, rub, or gallop Respiratory: Clear to auscultation bilaterally GI: Soft, non-tender, bowel sounds present Musculoskeletal: back is not tender to palpation Extremities: No edema Skin: no rash Neurologic: AAOx 3 Psychiatric: appropriate mood Imaging DXA as above Recent Laboratory Data: 02/16/21 16:42 05/08/21 17:00 09/11/21 14:15 01/31/22 16:51 04/12/22 16:37 08/13/22 16:23 09/05/22 16:12 Calcium 11.0 (H) 10.6 (H) 9.8 10.2 10.2 10.6 (H) 11.0 (H) Normalized CAlcium 1.48 (H) 1.39 (H) 1.42 (H) Albumin 4.1 4.1 4.0 4.0 4.1 4.2 4.3 eGFR-All Other Races >60 >60 >60 eGFR 92 75 97 93 PTH, Intact 37 74 (H) 108 (H) Vitamin D 25 Hydroxy 49.1 37.4 37.2 10/09/2019 15:02 02/16/2021 16:42 Vitamin D 1,25 Dihydroxy D3 17.4 PTH Related Peptide <2.0 2.0 SPEP 04/2021: No definitive M protein is identified on protein electrophoresis Assessment and Recommendations: Janay Frederick is a pleasant 72 year old female seen in consultation for evaluation and management of hypercalcemia and osteoporosis. Hypercalcemia: She has had elevated calcium since 2015 with elevated PTH. This is therefore PTH dependant hypercalcemia, most likely primary hyperparathyroidism. Familial hypocalciuric hypercalcemia (FHH) is unlikely given the age of onset. We again discussed the management options that include: observation with periodic monitoring, medical therapy, and surgery. We discussed the indications for surgery, which in her case includes the osteoporosis. Ms. Frederick stated previously that she would like to avoid surgery, but would like to think about it more. Osteoporosis: Ms. Frederick sustained vertebral fracture following falls from a standing height and she therefore meets the definition of osteoporosis. She received Reclast 1 time in 01/2022. The plan was to administer the second Reclast infusion in 02/2022 but she forgot to do that. DXA scan from 2021 shows decline in BMD at the femoral neck. I previously reviewed the images. The hip/femoral neck placements were suboptimal, and only L1 and L4 were included at the spine levels. She has had fragility fractures. Risk factors for low bone density include age, ethnicity, post-menopausal state, decreased mobility, hyperparathyroidism and possibly inadequate calcium intake. While there is decline on the DXA scan, I would not consider this failure of Reclast because it wasdone approximately 6 months after the first Reclast infusion. She was advised to achieve a total of 1000mg/day of calcium intake from diet without using calcium pills. She should continue with vitamin D 2000 units per day. I asked her to schedule the Reclast infusion now I gave her the phone number to schedule Return to clinic in 6 months and we will repeat her labs at that time Some of the above has been copied from prior documentation on 03/13/2022 but rose elements reviewed, confirmed, and/or updated by me (Hayden Flanagan MD) on 09/12/2022 I spent a total of 30 minutes on the date of the service which included preparing to see the patient, [id number] patient care, completing clinical documentation, counseling and educating the patient/family/caregiver, and ordering medications, tests, or procedures. Hayden Flanagan MD documented in this encounterCity Hospital01-31-2023 Miscellaneous Notes* Telephone Encounter - Adriana Pandya CHAD - 08/21/2022 1:39 PM EST Called patient. Verified name and date of . Patient notified and verbalizes understanding. Instruction sheets, Topical Estrogen Therapy and recurrent UTI Step Prevention program, mailed to patient. Patient verified address. Adriana Mumtaz BONILLA * Telephone Encounter - Blayne Roldan PA-C - 08/20/2022 5:37 PM EST No infection in the urine, I would like to have her start Topical estrogen , Dr. Teresa gave hi okfor trying it And very low risk due to CVA in past I can send it to her pharmacy but will need instruction sheet on use ERNESTO Morales, [place], KIRT documented in this encounterCity Hospital01-30-2023 Miscellaneous Notes* Telephone Encounter - Jimbo Post RN - 08/20/2022 4:26 PM EST Patient returned call and given provider's message below with verbalized understanding. * Telephone Encounter - Yael Flores LPN - 08/20/2022 4:20 PM EST Message left for patient to return call to receive provider's message. * Telephone Encounter - Shorty Teresa MD - 08/20/2022 3:57 PM EST halfway observational data has not shown any increased risk of cancer, stroke, or heart disease with vaginal estrogen despite radar tester warnings. I would be ok with trying her on this to see if urinary symptoms improve. * Telephone Encounter - Tarsha Hernández RN - 08/20/2022 11:43 AM EST Patient calls and states that she continues to have E-Coli in bladder. Patient had seen urologist and urologist wants patient to take 2 weeks of antibiotics to clear this. If E-coli does not clear, urologist wants patient to use a topical cream in area that has estrogen in it. Patient asking if this would be ok with her history of strokes? Please review and advise, Tarsha Hernández RN documented in this encounterCity Hospital01-27-2023 NoteHNO ID: [id number] Author: Blayne Roldan PA-C Service: ? Author Type: Physician Traffic Observer Type: Progress Notes Filed: 09/12/2022 1:20 PM Note Text: [facility], [facility] NEW CONSULT PATIENT CLINIC NOTE SERVICE DATE: 08/17/2022 SERVICE TIME: 5:20 PM NAME: Janay Frederick Consultation requested by Shorty Teresa MD for an opinion regarding UTI My final recommendations communicated back to the requesting physician by way of our shared Medical record. CHIEF COMPLAINT: UTI HISTORY OF PRESENT ILLNESS: Janay Frederick is a 72 year old female with PMH including CVA, Pelvic Organ Prolapse and OAB presenting for New Patient Consult for concerns of UTI occurance The patient reports she has had too many UTI's, however when we reviewed he chart the urine cultures show several E Coli UTI, but it does not seem to be responsive to antibiotic, so we discussed Atrophic Vaginitis which can cause recurrent UTI by keeping bacteria in the areas caused by low estrogen Recommended a 3 month trial of Topical estrogen and recheck urine for infection. LUTS: DYSURIA: yes URGENCY: Yes FREQUENCY:6 per day NOCTURIA: 2 per night STRAINING TO VOID: Yes EMPTIES COMPLETELY: Yes UTI: 3 past 12 months GROSS HEMATURIA: no UA DIPSTICK POSITIVE ONLY: no Other symptoms: LABS: No results found for: TESTOST No results found for: TESTFREE No results found for: PSA Hematocrit (%) Date Value 08/13/2022 44.2 11/26/2019 42.8 08/27/2019 46.0 06/25/2018 43.2 No results found for: PSA Creatinine Date Value Ref Range Status 08/13/2022 0.53 (L) 0.58 - 0.96 mg/dL Final 04/12/2022 0.82 0.58 - 0.96 mg/dL Final 01/31/2022 0.69 0.58 - 0.96 mg/dL Final 09/11/2021 0.60 0.58 - 0.96 mg/dL Final MEDICATIONS: furosemide (LASIX) 40 mg tablet Take 1 tablet by mouth once daily. gabapentin (NEURONTIN) 300 mg capsule Take 1 capsule by mouth twice daily for 90 days. hydrocortisone 2.5 % ointment Apply to affected area twice daily as needed (hemorrhoids). ondansetron orally disintegrating (ZOFRAN ODT) 4 mg disintegrating tablet Take 1 tablet by mouth every 6 hours as needed for nausea/vomiting. tolterodine ER (DETROL LA) 4 mg 24 hr capsule Take 1 capsule by mouth once daily. omeprazole (PRILOSEC) 40 mg capsule Take 1 capsule by mouth once daily. atorvastatin (LIPITOR) 10 mg tablet Take 1 tablet by mouth once daily. Discontinue simvastatin amitriptyline (ELAVIL) 75 mg tablet Take 1 tablet by mouth daily at bedtime. potassium chloride (K-TAB) 10 mEq tablet Take 1 tablet by mouth once daily. dilTIAZem CD (CARTIA XT) 300 mg 24 hr capsule Take 1 capsule by mouth once daily. naloxone 4 mg/actuation nasal spray (NARCAN) 1 [place] by nasal (alternating) route as needed for known or suspected opioid overdose. Use 1 spray in one nostril as needed for overdose. May repeat every 2 to 3 min in alternating nostrils until medical assistance is available HYDROcodone-acetaminophen (NORCO) 5-325 mg per tablet Take 3 tablets by mouth as needed. docusate sodium (COLACE) 100 mg capsule Take 1 capsule by mouth twice daily. cholecalciferol (VITAMIN D3) 50 mcg (2,000 unit) tablet Take 2,000 Units by mouth once daily. multivitamin tablet Take 1 tablet by mouth once daily. PAST MEDICAL HISTORY: PAST MEDICAL HISTORY Diagnosis Date BCC (basal cell carcinoma of skin) Chronic lower back pain Dr. Nur Gastric band slippage Dr. Garcia, removed 11/06 Gastric ulcer, unspecified as acute or chronic, without mention of hemorrhage or perforation, with obstruction Generalized osteoarthrosis, unspecified site back GERD (gastroesophageal reflux disease) Hyperparathyroidism (HCC) Insomnia Knee pain, chronic Lumbago Migraine without aura on diltiazem Obesity, unspecified stated BMI 40.5 HT: 61.5 WT: 220 Osteopenia of multiple sites Overactive bladder Personal history of unspecified urinary disorder years ago since last bladder infection SCC (squamous cell carcinoma) Stroke (HCC) 12/06/1981 cva left side residual, young at age 31, likely 2/2 OCPs Unspecified hemorrhoids without mention of complication Hemorrhoids Urinary urgency Uterine prolapse s/p hysterectomy Venous incompetence bilaterally, f/u Dr. Maravilla Vitamin D deficiency PAST SURGICAL HISTORY: PAST SURGICAL HISTORY Procedure Laterality Date ARTHRP KNE CONDYLEANDPLATU MEDIALANDLAT COMPARTMENTS Left 03/17/2014 Knee replacement, total left COLONOSCOPY FLX DX W/COLLJ SPEC WHEN PFRMD 02/08/2005 Colonoscopy COLONOSCOPY FLX DX W/COLLJ SPEC WHEN PFRMD 02/24/15 Colonoscopy EGD DILATION GASTRIC/DUODENAL STRICTURE 12/20/09 ESOPHAGOGASTRODUODENOSCOPY TRANSORAL DIAGNOSTIC 11/27/13 EGD HYSTERECTOMY 10/2107 pelvic organ prolapse LAPAROSCOPY SURG CHOLECYSTECTOMY 2004 Cholecystectomy, lap LAPS GASTRIC RESTRICTIVE PROCEDURE PLACE DEVICE (more content not included)...[facility]01[facility] NoteHNO ID: [id number] Author: Adriana Pandya LPN Service: ? Author Type: ? Type: Progress Notes Filed: 09/12/2022 1:20 PM Note Text: Verified name and date of . CC Post Void Residual HPI: Janay Frederick is a 72 year old female. The patient is here now for an appointment with ERNESTO Morales, LAILA, NANCY. Procedure: Explained procedure to patient and verbalizes understanding. Performed a PVR. Patient urinated and instructed to empty bladder as much as possible just prior to having PVR done using bladder ultrasound scanner. Results of scan: 23 mL The patient tolerated the procedure well. Plan: [facility] Blayne[facility] History of Present illness Narrative* Blayne Roldan PA-C - 08/17/2022 5:20 PM EST Images from the original note were not included. [facility], LAT[facility] NEW CONSULT PATIENT CLINIC NOTE SERVICE DATE: 08/17/2022 SERVICE TIME: 5:20 PM NAME: Janay Frederick Consultation requested by Shorty Tersea MD for an opinion regarding UTI My final recommendations communicated back to the requesting physician by way of our shared Medicalrecord. CHIEF COMPLAINT: UTI HISTORY OF PRESENT ILLNESS: Janay Frederick is a 72 year old female with PMH including CVA, Pelvic Organ Prolapse and OAB presenting for New Patient Consult for concerns of UTI occurance The patient reports she has had too many UTI's, however when we reviewed he chart the urine cultures show several E Coli UTI, but it does not seem to be responsive to antibiotic, so we discussed Atrophic Vaginitis which can cause recurrent UTI by keeping bacteria in the areas caused by low estrogen Recommended a 3 month trial of Topical estrogen and recheck urine for infection. LUTS: DYSURIA: yes URGENCY: Yes FREQUENCY:6 per day NOCTURIA: 2 per night STRAINING TO VOID: Yes EMPTIES COMPLETELY: Yes UTI: 3 past 12 months GROSS HEMATURIA: no UA DIPSTICK POSITIVE ONLY: no Other symptoms: LABS: No results found for: TESTOST No results found for: TESTFREE No results found for: PSA Hematocrit (%) Date Value 08/13/2022 44.2 11/26/2019 42.8 08/27/2019 46.0 06/25/2018 43.2 No results found for: PSA Creatinine Date Value Ref Range Status 08/13/2022 0.53 (L) 0.58 - 0.96 mg/dL Final 04/12/2022 0.82 0.58 - 0.96 mg/dL Final 01/31/2022 0.69 0.58 - 0.96 mg/dL Final 09/11/2021 0.60 0.58 - 0.96 mg/dL Final MEDICATIONS: furosemide (LASIX) 40 mg tablet Take 1 tablet by mouth once daily. gabapentin (NEURONTIN) 300 mg capsule Take 1 capsule by mouth twice daily for 90 days. hydrocortisone 2.5 % ointment Apply to affected area twice daily as needed (hemorrhoids). ondansetron orally disintegrating (ZOFRAN ODT) 4 mg disintegrating tablet Take 1 tablet by mouth every 6 hours as needed for nausea/vomiting. tolterodine ER (DETROL LA) 4 mg 24 hr capsule Take 1 capsule by mouth once daily. omeprazole (PRILOSEC) 40 mg capsule Take 1 capsule by mouth once daily. atorvastatin (LIPITOR) 10 mg tablet Take 1 tablet by mouth once daily. Discontinue simvastatin amitriptyline (ELAVIL) 75 mg tablet Take 1 tablet by mouth daily at bedtime. potassium chloride (K-TAB) 10 mEq tablet Take 1 tablet by mouth once daily. dilTIAZem CD (CARTIA XT) 300 mg 24 hr capsule Take 1 capsule by mouth once daily. naloxone 4 mg/actuation nasal spray (NARCAN) 1 [place] by nasal (alternating) route as needed for known or suspected opioid overdose. Use 1 spray in one nostril as needed for overdose. May repeat every2 to 3 min in alternating nostrils until medical assistance is available HYDROcodone-acetaminophen (NORCO) 5-325 mg per tablet Take 3 tablets by mouth as needed. docusate sodium (COLACE) 100 mg capsule Take 1 capsule by mouth twice daily. cholecalciferol (VITAMIN D3) 50 mcg (2,000 unit) tablet Take 2,000 Units by mouth once daily. multivitamin tablet Take 1 tablet by mouth once daily. PAST MEDICAL HISTORY: PAST MEDICAL HISTORY Diagnosis Date BCC (basal cell carcinoma of skin) Chronic lower back pain Dr. Nur Gastric band slippage Dr. Garcia, removed 11/06 Gastric ulcer, unspecified as acute or chronic, without mention of hemorrhage or perforation, with obstruction Generalized osteoarthrosis, unspecified site back GERD (gastroesophageal reflux disease) Hyperparathyroidism (HCC) Insomnia Knee pain, chronic Lumbago Migraine without aura on diltiazem Obesity, unspecified stated BMI 40.5 HT: 61.5 WT: 220 Osteopenia of multiple sites Overactive bladder Personal history of unspecified urinary disorder years ago since last bladder infection SCC (squamous cell carcinoma) Stroke (HCC) 12/06/1981 cva left side residual, young at age 31, likely 2/2 OCPs Unspecified hemorrhoids without mention of complication Hemorrhoids Urinary urgency Uterine prolapse s/p hysterectomy Venous incompetence bilaterally, f/u Dr. Maravilla Vitamin D deficiency PAST SURGICAL HISTORY: PAST SURGICAL HISTORY Procedure Laterality Date ARTHRP KNE CONDYLE&PLATU MEDIAL&LAT COMPARTMENTS Left 03/17/2014 Knee replacement, total left COLONOSCOPY FLX DX W/COLLJ SPEC WHEN PFRMD 02/08/2005 Colonoscopy COLONOSCOPY FLX DX W/COLLJ SPEC WHEN PFRMD 02/24/15 Colonoscopy EGD DILATION GASTRIC/DUODENAL STRICTURE 12/20/09 ESOPHAGOGASTRODUODENOSCOPY TRANSORAL DIAGNOSTIC 11/27/13 EGD HYSTERECTOMY 10/2107 pelvic organ prolapse LAPAROSCOPY SURG CHOLECYSTECTOMY 2005 Cholecystectomy, lap LAPS GASTRIC RESTRICTIVE PROCEDURE PLACE DEVICE 04/21/2010 Performed by THI ALCOCER at [facility] LAPS RPR PARAESPHGL HRNA INCL FUNDPLSTY W/O MESH 04/21/2010 Performed by THI ALCOCER at [facility] MAL LESION FACE,EAR,EYEL 1.1-2CM 01/28/06 Left cheek and right forearm lesions PAST SURGICAL HISTORY OF July 06, 2009 Hysteroscopy D&C PAST SURGICAL HISTORY OF 10/2017 vaginal vault suspension PAST SURGICAL HISTORY OF 10/2017 Lap band removed UNLIS LAPAROSCOPIC PROCEDURE LIVER 04/21/2010 Performed by THI ALCOCER at [facility] FAMILY HISTORY: FAMILY HISTORY Problem Relation Age of Onset Hypertension Mother Diabetes Mother Breast Cancer Mother Heart Mother a fib Diabetes Father Heart Father angioplasty Blood Disease Brother Hairy Cell Leukemia Prostate Cancer Brother Blood Disease Maternal Grandmother Leukemia None Brother Hypertension Maternal Uncle Prostate Cancer Maternal Uncle Hypertension Maternal Aunt SOCIAL HISTORY: Social Connections: Not on file REVIEW OF SYSTEMS: GENERAL: No fever, chills, weight loss, or fatigue. ENMT: Negative CARDIOVASCULAR:NO CHEST PAIN, PALPITATIONS, ANKLE EDEMA RESPIRATORY: No chronic cough, wheezing, dyspnea, hemoptysis. GENITOURINARY: SEE HPI MUSCULOSKELETAL:NO CHRONIC BACK PAIN, ARTHRITIS, CHRONIC NECK PAIN SKIN: NO VARICOSE VEINS, RASH, ABNORMAL ITCHING HEME/LYMPH/IMMUNE:Negative for prolonged bleeding, bruising easily or swollen nodes NEUROLOGICAL: NO HEADACHES, NUMBNESS, SEIZURES, STROKE DIABETES: no All other systems reviewed and are negative PHYSICAL EXAMINATION: Blood pressure 144/68, pulse 104, temperature 36.4 C (97.6 F), temperature source Temporal, resp. rate 16, height 152.4 cm (5'), weight 89.4 kg (197 lb), SpO2 97 %. GENERAL: WNL nutrition, no deformities, healthy appearing NEURO: Awake, alert and oriented x 3 and Normal gait PSYCH: No signs of depression, anxiety, or agitation ENMT (Ear, Nose, Mouth, Throat): No masses, adenopathy, icterus. Thyroid nonpalpable RESP: NL effort, no retractions or purse-lip breathing. CV: No extremity swelling, varices, edema, pallor, erythema GASTROINTESTINAL: Soft, nontender, nondistended, no masses. HERNIAS: None SKIN: No rash, lesions No palpable lymphadenopathy MUSCULOSKELETAL: Extremities normal. No deformities, edema, clubbing or skin discoloration. PROBLEM LIST REVIEW: Yes LABS: Results for orders placed or performed in visit on 08/17/22 UA DIP, URINE (POC) Result Value Ref Range GLUCOSE UA (POCT) Negative Negative mg/dL BILIRUBIN UA (POCT) Negative Negative KETONE UA (POCT) Trace Negative mg/dL SPECIFIC GRAVITY UA (POCT) 1.015 1.005 - 1.030 HEMOGLOBIN/BLOOD UA (POCT) Negative Negative PH UA (POCT) 5.0 4.5 - 8.0 PROTEIN UA (POCT) Negative Negative mg/dL UROBILINOGEN UA (POCT) 0.2 Normal E.U./dL NITRITE UA (POCT) Negative Negative LEUKOCYTES UA (POCT) Trace (A) Negative COLOR UA (POCT) Yellow CLARITY UA (POCT) Clear *Note: Due to a large number of results and/or encounters for the requested time period, some results have not been displayed. A complete set of results can be found in Results Review. Urine Culture: Pending PROCEDURES: PVR: 0 ml IMAGING: IMPRESSION/PLAN: 72 year old female with 1. Urinary tract infection without hematuria, site unspecified - ICD9: 599.0, ICD10: N39.0 Urine Culture If +ve then treat and get 2 week post-treatment culutre Then will try topical estrogen - she will check with PCP given history of CVA Topical should be ok but will have her double check with Oncology > 3 mo. Appt w/ BERNESTO Charlton MT, PA-C for new Rx Follow-up I spent a total of 40 minutes on the date of the service which included preparing to see the patient, face to face patient care, completing clinical documentation, obtaining and/or reviewing separately obtained history, performing a medically appropriate examination, counseling and educating the pat ient/family/caregiver, ordering medications, tests, or procedures, and care coordination. ERNESTO Morales MT, PA-C * Adriana Pandya LPN - 08/17/2022 3:32 PM EST Verified name and date of . CC Post Void Residual HPI: Janay Frederick is a 72 year old female. The patient is here now for an appointment with Blayne Roldan, ERNESTO, LAILA, NANCY. Procedure: Explained procedure to patient and verbalizes understanding. Performed a PVR. Patient urinated and instructed to empty bladder as much as possible just prior to having PVR done using bladder ultrasound scanner. Results of scan: 23 mL The patient tolerated the procedure well. Plan: Appointment with Blayne. [facility] Miscellaneous Notes* Telephone Encounter - Adwoa Ferguson MA - 08/15/2022 11:06 AM EST Pt informed, verbalized understanding. Adwoa Ferguson MA * Telephone Encounter - Shorty Teresa MD - 08/15/2022 10:53 AM EST US negative for DVT. No need for blood thinner or further workup at this time. Recommend compression stockings, leg elevation with resting, and continued lasix. Call if she develops worsening swelling, pain, or redness. * Telephone Encounter - Shorty Teresa MD - 08/14/2022 9:41 AM EST Agree. * Telephone Encounter - Marlene Loaiza LPN - 08/14/2022 9:18 AM EST Called and spoke with registration. States patient is on the schedule for 10am. Patient telephoned and made aware. She states she isn't sure she can get ready in time. Patient wants to call hospital to get a later time. Number provided to patient to call. Encouraged to try to make it to earliest appointment as possible. Marlene Loaiza LPN * Telephone Encounter - Divya Perez Pss - 08/14/2022 9:04 AM EST Patient called stating she has not heard from [facility] yet about STAT US. Please advise patient. documented [facility] Miscellaneous Notes* Telephone Encounter - Yael Flores LPN - 08/14/2022 9:30 AM EST Phoned patient and updated her with provider's message. She voiced understanding and reports she will get it done. * Telephone Encounter - Shorty Teresa MD - 08/14/2022 9:24 AM EST Patient's D dimer is elevated which is consistent with possible blood clot. Recommend she get the venous duplex today as discussed in office yesterday. documented in [facility]23 NoteHNO ID: [id number] Author: Shorty Teresa MD Service: ? Author Type: Physician Type: Progress Notes Filed: 08/14/2022 8:37 AM Note Text: Chief Complaint Patient presents with: Follow Up: 6 month HPI Janay Frederick is a 72 year old female who presents here today for 6 month follow up. Patient treated for recurrent UTI growing E. Coli last week. Finished her Macrobid yesterday and dysuria and urgency have resolved, but continues to have some frequency. OV with urology scheduled for 08/17. Patient is taking Detrol LA as prescribed for overactive bladder. Was getting incontinence at night during her UTI. Symptoms improved last night. GERD: controlled on Omeprazole 40 mg daily. Migraines: Taking diltiazem for prophylaxis. Notes that she gets headaches when she doesn't drink caffeine, but does not get migraines while she is on the diltiazem. Elavil working well for insomnia. PHQ-2 / Depression screen He in the past two weeks denies having felt down, depressed, hopeless or with little interest or pleasure in doing things. Has follow up appointment with Dr. Flanagan on 09/13 for her hypercalcemia and hyperparathyroidism. Labs pending. Recommended she continue on reclast for osteoporosis. Following up with Dr. Nur's office monthly for her chronic lower back pain. Taking [place] as prescribed which is working well for her pain. Has injection scheduled for her next appointment. Past medical history, appointments, medications, allergies reviewed. Previous Medical History PAST MEDICAL HISTORY Diagnosis Date BCC (basal cell carcinoma of skin) Chronic lower back pain Dr. Nur Gastric band slippage Dr. Garcia, removed 11/06 Gastric ulcer, unspecified as acute or chronic, without mention of hemorrhage or perforation, with obstruction Generalized osteoarthrosis, unspecified site back GERD (gastroesophageal reflux disease) Hyperparathyroidism (HCC) Insomnia Knee pain, chronic Lumbago Migraine without aura on diltiazem Obesity, unspecified stated BMI 40.5 HT: 61.5 WT: 220 Osteopenia of multiple sites Personal history of unspecified urinary disorder years ago since last bladder infection SCC (squamous cell carcinoma) Stroke (HCC) 12/06/1981 cva left side residual, young at age 31, likely 2/2 OCPs Unspecified hemorrhoids without mention of complication Hemorrhoids Urinary urgency Uterine prolapse s/p hysterectomy Venous incompetence bilaterally, f/u Dr. Maravilla Vitamin D deficiency Previous Surgical History PAST SURGICAL HISTORY Procedure Laterality Date ARTHRP KNE CONDYLEANDPLATU MEDIALANDLAT COMPARTMENTS Left 03/17/2014 Knee replacement, total left COLONOSCOPY FLX DX W/COLLJ SPEC WHEN PFRMD 02/08/2005 Colonoscopy COLONOSCOPY FLX DX W/COLLJ SPEC WHEN PFRMD 02/24/15 Colonoscopy EGD DILATION GASTRIC/DUODENAL STRICTURE 12/20/09 ESOPHAGOGASTRODUODENOSCOPY TRANSORAL DIAGNOSTIC 11/27/13 EGD HYSTERECTOMY 10/2107 pelvic organ prolapse LAPAROSCOPY SURG CHOLECYSTECTOMY 2004 Cholecystectomy, lap LAPS GASTRIC RESTRICTIVE PROCEDURE PLACE DEVICE 04/21/2010 Performed by THI ALCOCER at [facility] LAPS RPR PARAESPHGL HRNA INCL FUNDPLSTY W/O MESH 04/21/2010 Performed by THI ALCOCER at [facility] MAL LESION FACE,EAR,EYEL 1.1-2CM 01/28/06 Left cheek and right forearm lesions PAST SURGICAL HISTORY OF July 06, 2009 Hysteroscopy DANDC PAST SURGICAL HISTORY OF 10/2017 vaginal vault suspension PAST SURGICAL HISTORY OF 10/2017 Lap band removed UNLIS LAPAROSCOPIC PROCEDURE LIVER 04/21/2010 Performed by THI ALCOCER at [facility] Family History FAMILY HISTORY Problem Relation Age of Onset Hypertension Mother Diabetes Mother Breast Cancer Mother Heart Mother a fib Diabetes Father Heart Father angioplasty Blood Disease Brother Hairy Cell Leukemia Prostate Cancer Brother Blood Disease Maternal Grandmother Leukemia None Brother Hypertension Maternal Uncle Prostate Cancer Maternal Uncle Hypertension Maternal Aunt Patient Allergies ALLERGIES Allergen Reactions Flagyl [Metronidazo* GI Upset Severe nausea, malaise, dizziness Hctz [Thiazides] Other: See Comments hypercalcemia Current Medications Current Outpatient Medications on File Prior to Visit Medication Sig furosemide (LASIX) 40 mg tablet Take 1 tablet by mouth once daily. gabapentin (NEURONTIN) 300 mg capsule Take 1 capsule by mouth twice daily for 90 days. hydrocortisone 2.5 % ointment Apply to affected area twice daily as needed (hemorrhoids). ondansetron orally disintegrating (ZOFRAN ODT) 4 mg disintegrating tablet Take 1 tablet by mouth every 6 hours as needed for nausea/vomiting. tolterodine ER (DETROL LA) 4 mg 24 hr capsule Take 1 capsule by mouth once daily. omeprazole (PRILOSEC) 40 mg capsule Take 1 capsule by mouth once daily. atorvastatin (LIPITOR) 10 mg tablet Take 1 tablet by mouth once daily. (more content not included)...[facility]01-23-[facility]23 History of Present illness Narrative* Shorty Teresa MD - 08/13/2022 3:24 PM EST Chief Complaint Patient presents with: Follow Up: 6 month HPI Janay Frederick is a 72 year old female who presents here today for 6 month follow up. Patient treated for recurrent UTI growing E. Coli last week. Finished her Macrobid yesterday and dysuria and urgency have resolved, but continues to have some frequency. OV with urology scheduled for08/17. Patient is taking Detrol LA as prescribed for overactive bladder. Was getting incontinence at nightduring her UTI. Symptoms improved last night. GERD: controlled on Omeprazole 40 mg daily. Migraines: Taking diltiazem for prophylaxis. Notes that she gets headaches when she doesn't drink caffeine, but does not get migraines while she is on the diltiazem. Elavil working well for insomnia. PHQ-2 / Depression screen He in the past two weeks denies having felt down, depressed, hopeless or with little interest or pleasure in doing things. Has follow up appointment with Dr. Flanagan on 09/13 for her hypercalcemia and hyperparathyroidism. Labs pending. Recommended she continue on reclast for osteoporosis. Following up with Dr. Nur's office monthly for her chronic lower back pain. Taking [place] as prescribed which is working well for her pain. Has injection scheduled for her next appointment. Past medical history, appointments, medications, allergies reviewed. Previous Medical History PAST MEDICAL HISTORY Diagnosis Date BCC (basal cell carcinoma of skin) Chronic lower back pain Dr. Nur Gastric band slippage Dr. Garcia, removed 11/06 Gastric ulcer, unspecified as acute or chronic, without mention of hemorrhage or perforation, with obstruction Generalized osteoarthrosis, unspecified site back GERD (gastroesophageal reflux disease) Hyperparathyroidism (HCC) Insomnia Knee pain, chronic Lumbago Migraine without aura on diltiazem Obesity, unspecified stated BMI 40.5 HT: 61.5 WT: 220 Osteopenia of multiple sites Personal history of unspecified urinary disorder years ago since last bladder infection SCC (squamous cell carcinoma) Stroke (HCC) 12/06/1981 cva left side residual, young at age 31, likely 2/2 OCPs Unspecified hemorrhoids without mention of complication Hemorrhoids Urinary urgency Uterine prolapse s/p hysterectomy Venous incompetence bilaterally, f/u Dr. Maravilla Vitamin D deficiency Previous Surgical History PAST SURGICAL HISTORY Procedure Laterality Date ARTHRP KNE CONDYLE&PLATU MEDIAL&LAT COMPARTMENTS Left 03/17/2014 Knee replacement, total left COLONOSCOPY FLX DX W/COLLJ SPEC WHEN PFRMD 02/08/2005 Colonoscopy COLONOSCOPY FLX DX W/COLLJ SPEC WHEN PFRMD 02/24/15 Colonoscopy EGD DILATION GASTRIC/DUODENAL STRICTURE 6/1/10 ESOPHAGOGASTRODUODENOSCOPY TRANSORAL DIAGNOSTIC 11/27/13 EGD HYSTERECTOMY 10/2107 pelvic organ prolapse LAPAROSCOPY SURG CHOLECYSTECTOMY 2005 Cholecystectomy, lap LAPS GASTRIC RESTRICTIVE PROCEDURE PLACE DEVICE 04/21/2010 Performed by THI ALCOCER at [facility] LAPS RPR PARAESPHGL HRNA INCL FUNDPLSTY W/O MESH 04/21/2010 Performed by THI ALCOCER at [facility] MAL LESION FACE,EAR,EYEL 1.1-2CM 01/28/06 Left cheek and right forearm lesions PAST SURGICAL HISTORY OF July 06, 2009 Hysteroscopy D&C PAST SURGICAL HISTORY OF 10/2017 vaginal vault suspension PAST SURGICAL HISTORY OF 10/2017 Lap band removed UNLIS LAPAROSCOPIC PROCEDURE LIVER 04/21/2010 Performed by THI ALCOCER at [facility] Family History FAMILY HISTORY Problem Relation Age of Onset Hypertension Mother Diabetes Mother Breast Cancer Mother Heart Mother a fib Diabetes Father Heart Father angioplasty Blood Disease Brother Hairy Cell Leukemia Prostate Cancer Brother Blood Disease Maternal Grandmother Leukemia None Brother Hypertension Maternal Uncle Prostate Cancer Maternal Uncle Hypertension Maternal Aunt Patient Allergies ALLERGIES Allergen Reactions Flagyl [Metronidazo* GI Upset Severe nausea, malaise, dizziness Hctz [Thiazides] Other: See Comments hypercalcemia Current Medications Current Outpatient Medications on File Prior to Visit Medication Sig furosemide (LASIX) 40 mg tablet Take 1 tablet by mouth once daily. gabapentin (NEURONTIN) 300 mg capsule Take 1 capsule by mouth twice daily for 90 days. hydrocortisone 2.5 % ointment Apply to affected area twice daily as needed (hemorrhoids). ondansetron orally disintegrating (ZOFRAN ODT) 4 mg disintegrating tablet Take 1 tablet by mouth every 6 hours as needed for nausea/vomiting. tolterodine ER (DETROL LA) 4 mg 24 hr capsule Take 1 capsule by mouth once daily. omeprazole (PRILOSEC) 40 mg capsule Take 1 capsule by mouth once daily. atorvastatin (LIPITOR) 10 mg tablet Take 1 tablet by mouth once daily. Discontinue simvastatin amitriptyline (ELAVIL) 75 mg tablet Take 1 tablet by mouth daily at bedtime. potassium chloride (K-TAB) 10 mEq tablet Take 1 tablet by mouth once daily. dilTIAZem CD (CARTIA XT) 300 mg 24 hr capsule Take 1 capsule by mouth once daily. naloxone 4 mg/actuation nasal spray (NARCAN) 1 [place] by nasal (alternating) route as needed for known or suspected opioid overdose. Use 1 spray in one nostril as needed for overdose. May repeat every2 to 3 min in alternating nostrils until medical assistance is available HYDROcodone-acetaminophen (NORCO) 5-325 mg per tablet Take 3 tablets by mouth as needed. docusate sodium (COLACE) 100 mg capsule Take 1 capsule by mouth twice daily. cholecalciferol (VITAMIN D3) 50 mcg (2,000 unit) tablet Take 2,000 Units by mouth once daily. multivitamin tablet Take 1 tablet by mouth once daily. No current facility-administered medications on file prior to visit. Social History Social History Tobacco Use Smoking status: Never Smokeless tobacco: Never Vaping Use Vaping Use: Never used Substance Use Topics Alcohol use: No Drug use: No Review of Symptoms REVIEW OF SYSTEMS GENERAL: No weight loss, malaise or fevers RESPIRATORY: Negative for cough, hemoptysis, wheezing, COPD, dyspnea or shortness of breath CARDIOVASCULAR: Negative for chest pain, hypertension, CHF or palpitations. Patient admits that herleft lower leg looks more swollen than usual in the last 2+weeks. Denies pain or spreading redness. GI: No nausea, vomiting, or diarrhea SKIN: Negative for lesions, rash, and itching EXAM: BP 156/76 Pulse 91 Resp 18 Wt 89.4 kg (197 lb 3.2 oz) SpO2 97% BMI 38.51 kg/m General Appearance: Well appearing, alert, in no acute distress, well-hydrated, well nourished.. Skin: Skin color, texture, turgor normal, no suspicious rashes or lesions. Lungs: Lungs clear to auscultation. No wheezing, rhonchi, rales.. Heart: RRR without murmur, gallop, or rubs. No ectopy. Abdomen: Normal abdominal exam, Abdomen soft, non-tender. Bowel sounds normal. No masses, organomegaly. Extremities: Left lower leg is 5 cm larger in circumference than the right. TTP over vega and with squeezing her calf. Chronic venous statis changes with rubor and contracted skin over distal 1/3 of her LE. Wearing compression stockings. No pitting edema. Health Maintenance List SHINGRIX VACCINE(1 of 2) Never done ADVANCE DIRECTIVE DISCUSSION Never done DEPRESSION ASSESSMENT Never done MAMMOGRAM due on 04/26/2023 COLORECTAL CANCER SCREENING due on 02/24/2025 DIABETES SCREEN due on 04/12/2025 DTAP,TDAP,TD(4 - Td or Tdap) due on 10/09/2026 LIPID SCREEN due on 01/31/2027 BONE DENSITY Completed INFLUENZA Completed HEPATITIS C SCREENING Completed COVID-19 VACCINE Completed PNEUMOCOCCAL: 65+ Completed Data reviewed Component Latest Ref Rng & Units 04/12/2022 04/12/2022 4:37 PM 4:37 PM Protein, Total 6.3 - 8.0 g/dL 6.5 Albumin 3.9 - 4.9 g/dL 4.1 Calcium 8.5 - 10.2 mg/dL 10.2 Bilirubin, Total 0.2 - 1.3 mg/dL <0.2 (L) Alkaline Phosphatase 34 - 123 U/L 128 (H) 128 (H) AST 13 - 35 U/L 60 (H) ALT 7 - 38 U/L 44 (H) Glucose 74 - 99 mg/dL 82 BUN 7 - 21 mg/dL 13 Creatinine 0.58 - 0.96 mg/dL 0.82 Sodium 136 - 144 mmol/L 140 Potassium 3.7 - 5.1 mmol/L 3.4 (L) Chloride 97 - 105 mmol/L 102 CO2 22 - 30 mmol/L 28 Anion Gap 9 - 18 mmol/L 10 eGFR >=60 mL/min/1.73m 75 Alk Phos Bone % 10.7 - 68.3 % 35.4 Bone Fraction 12.9 - 52.6 U/L 45.3 Alk Phos Liver % 26.0 - 86.2 % 53.2 Liver Fraction 16.0 - 69.3 U/L 68.1 Alk Phos Intestine % 0.0 - 24.2 % 11.4 Intestine Fraction 0.0 - 16.3 U/L 14.6 GGT 6 - 46 U/L 55 (H) Component Latest Ref Rng & Units 01/31/2022 Protein, Total 6.3 - 8.0 g/dL 6.6 Albumin 3.9 - 4.9 g/dL 4.0 Calcium 8.5 - 10.2 mg/dL 10.2 Bilirubin, Total 0.2 - 1.3 mg/dL <0.2 (L) Alkaline Phosphatase 34 - 123 U/L 169 (H) AST 13 - 35 U/L 37 (H) ALT 7 - 38 U/L 55 (H) Glucose 74 - 99 mg/dL 118 (H) BUN 7 - 21 mg/dL 9 Creatinine 0.58 - 0.96 mg/dL 0.69 Sodium 136 - 144 mmol/L 141 Potassium 3.7 - 5.1 mmol/L 3.9 Chloride 97 - 105 mmol/L 103 CO2 22 - 30 mmol/L 29 Anion Gap 9 - 18 mmol/L 9 eGFR >=60 mL/min/1.73m 92 Total Cholesterol, Nonfasting <200 mg/dL 151 Triglycerides, Nonfasting <150 mg/dL 80 HDL Cholesterol, Nonfasting >39 mg/dL 79 LDL Cholesterol, Nonfasting <100 mg/dL 56 Non HDL Cholesterol, Nonfasting <130 mg/dL 72 VLDL Cholesterol, Nonfasting <30 mg/dL 16 Total Chol/HDL Ratio, Nonfasting <5.10 mg/dL 1.91 LDL/HDL Ratio, Nonfasting <2.54 mg/dL 0.71 ASSESSMENT/PLAN: 1. Left leg swelling - ICD9: 729.81, ICD10: M79.89 (primary diagnosis) Obtain STAT imaging to rule out DVT. Scheduled tomorrow morning at [facility]. Discussed with her the importance of this imaging and risks if she has DVT and spreads into her lungs. Red flags for re-assessment reviewed with patient in detail. - US LEG VEIN DVT UNL VAS LAB - COMP METABOLIC PANEL - CBC + DIFF - D-DIMER 2. Recurrent UTI (urinary tract infection) - ICD9: 599.0, ICD10: N39.0 Improved after macrobid. Push PO fluids. F/u with urology. Recheck UA C&S. - URINALYSIS, WITH MICROSCOPIC - URINE CULTURE 3. Bilateral lower extremity edema - ICD9: 782.3, ICD10: R60.0 Requesting new rx for compression stockings. - COMPRESSION STOCKINGS 4. Migraine without aura and without status migrainosus, not intractable - ICD9: 346.10, ICD10: G43.009 Controlled on diltiazem. 5. Primary insomnia - ICD9: 307.42, ICD10: F51.01 Controlled on Elavil. 6. Hyperparathyroidism (HCC) - ICD9: 252.00, ICD10: E21.3 Recommendations per endocrinology. 7. Hypercalcemia - ICD9: 275.42, ICD10: E83.52 Recheck labs. F/u with endocrinology. 8. Other osteoporosis, unspecified pathological fracture presence - ICD9: 733.09, ICD10: M81.8 - continue tx with Reclast - Reviewed the need for Calcium and Vitamin D supplements and weight bearing exercise as tolerated 9. Venous incompetence - ICD9: 459.81, ICD10: I87.2 Continue compression stockings daily. 10. Chronic bilateral low back pain without sciatica - ICD9: 724.2, 338.29, ICD10: M54.50, G89.29 Controlled on [place]. F/u with Dr. Nur for injections. 11. OAB (overactive bladder) - ICD9: 596.51, ICD10: N32.81 Controlled on Detrol LA. 12. Vitamin D deficiency - ICD9: 268.9, ICD10: E55.9 Repeat labs ordered for next month with endocrinology. Continue current regimen. I spent a total of 45 minutes on the date of the service which included preparing to see the patient, [id number] patient care, completing clinical documentation, obtaining and/or reviewing separately obtained history, performing a medically appropriate examination, counseling and educating the pat ient/family/caregiver, and ordering medications, tests, or procedures. Shorty Teresa MD documented in this encounterCity [facility]01-17-[facility]23 NoteHNO ID: [id number] Author: Shorty Teresa MD Service: ? Author Type: Physician Type: Progress Notes Filed: 08/07/2022 6:31 PM Note Text: Chief Complaint Patient presents with: UTI: recurrent HPI Janay Frederick is a 72 year old female who presents here today for Above Complaints. Noted patient was treated in on 07/09 and 07/26 for UTI growing E. Coli. Given Keflex both times. E coli sanches sensitive. Patient states that she finished her last course about 4 days ago and developed new symptoms yesterday. C/o urinary frequency/urgency and dysuria. Denies hematuria, fever/chills, nausea, vomiting, abdominal pain, flank pain. Trying to drink more water. Not taking anything OTC. Past medical history, appointments, medications, allergies reviewed. Previous Medical History PAST MEDICAL HISTORY Diagnosis Date BCC (basal cell carcinoma of skin) Chronic lower back pain Dr. Nur Gastric band slippage Dr. Garcia, removed 11/06 Gastric ulcer, unspecified as acute or chronic, without mention of hemorrhage or perforation, with obstruction Generalized osteoarthrosis, unspecified site back GERD (gastroesophageal reflux disease) Hyperparathyroidism (HCC) Insomnia Knee pain, chronic Lumbago Migraine without aura on diltiazem Obesity, unspecified stated BMI 40.5 HT: 61.5 WT: 220 Osteopenia of multiple sites Personal history of unspecified urinary disorder years ago since last bladder infection SCC (squamous cell carcinoma) Stroke (HCC) 12/06/1981 cva left side residual, young at age 31, likely 2/2 OCPs Unspecified hemorrhoids without mention of complication Hemorrhoids Urinary urgency Uterine prolapse s/p hysterectomy Venous incompetence bilaterally, f/u Dr. Maravilla Vitamin D deficiency Previous Surgical History PAST SURGICAL HISTORY Procedure Laterality Date ARTHRP KNE CONDYLEANDPLATU MEDIALANDLAT COMPARTMENTS Left 03/17/2014 Knee replacement, total left COLONOSCOPY FLX DX W/COLLJ SPEC WHEN PFRMD 02/08/2005 Colonoscopy COLONOSCOPY FLX DX W/COLLJ SPEC WHEN PFRMD 02/24/15 Colonoscopy EGD DILATION GASTRIC/DUODENAL STRICTURE 12/20/09 ESOPHAGOGASTRODUODENOSCOPY TRANSORAL DIAGNOSTIC 11/27/13 EGD HYSTERECTOMY 10/2107 pelvic organ prolapse LAPAROSCOPY SURG CHOLECYSTECTOMY 2004 Cholecystectomy, lap LAPS GASTRIC RESTRICTIVE PROCEDURE PLACE DEVICE 04/21/2010 Performed by THI ALCOCER at [facility] LAPS RPR PARAESPHGL HRNA INCL FUNDPLSTY W/O MESH 04/21/2010 Performed by THI ALCOCER at [facility] MAL LESION FACE,EAR,EYEL 1.1-2CM 01/28/06 Left cheek and right forearm lesions PAST SURGICAL HISTORY OF July 06, 2009 Hysteroscopy DANTX PAST SURGICAL HISTORY OF 10/2017 vaginal vault suspension PAST SURGICAL HISTORY OF 10/2017 Lap band removed UNLIS LAPAROSCOPIC PROCEDURE LIVER 04/21/2010 Performed by THI ALCOCER at [facility] Family History FAMILY HISTORY Problem Relation Age of Onset Hypertension Mother Diabetes Mother Breast Cancer Mother Heart Mother a fib Diabetes Father Heart Father angioplasty Blood Disease Brother Hairy Cell Leukemia Prostate Cancer Brother Blood Disease Maternal Grandmother Leukemia None Brother Hypertension Maternal Uncle Prostate Cancer Maternal Uncle Hypertension Maternal Aunt Patient Allergies ALLERGIES Allergen Reactions Flagyl [Metronidazo* GI Upset Severe nausea, malaise, dizziness Hctz [Thiazides] Other: See Comments hypercalcemia Current Medications Current Outpatient Medications on File Prior to Visit Medication Sig gabapentin (NEURONTIN) 300 mg capsule Take 1 capsule by mouth twice daily for 90 days. hydrocortisone 2.5 % ointment Apply to affected area twice daily as needed (hemorrhoids). ondansetron orally disintegrating (ZOFRAN ODT) 4 mg disintegrating tablet Take 1 tablet by mouth every 6 hours as needed for nausea/vomiting. tolterodine ER (DETROL LA) 4 mg 24 hr capsule Take 1 capsule by mouth once daily. omeprazole (PRILOSEC) 40 mg capsule Take 1 capsule by mouth once daily. atorvastatin (LIPITOR) 10 mg tablet Take 1 tablet by mouth once daily. Discontinue simvastatin amitriptyline (ELAVIL) 75 mg tablet Take 1 tablet by mouth daily at bedtime. potassium chloride (K-TAB) 10 mEq tablet Take 1 tablet by mouth once daily. dilTIAZem CD (CARTIA XT) 300 mg 24 hr capsule Take 1 capsule by mouth once daily. naloxone 4 mg/actuation nasal spray (NARCAN) 1 [place] by nasal (alternating) route as needed for known or suspected opioid overdose. Use 1 spray in one nostril as needed for overdose. May repeat every 2 to 3 min in alternating nostrils until medical assistance is available furosemide (LASIX) 40 mg tablet Take 1 tablet by mouth once daily. (Patient taking differently: Take 40 mg by mouth once daily. Doesn't take every day -if she's not up at 3 or 4a she wont take) HYDROcodone-acetaminophen (NORCO) 5-325 mg per ta (more content not included)... [facility]01-05-2023 History of Present illness Narrative* Donnell Braden MD - 07/26/2022 6:50 PM EST Patient presents with: Urinary Frequency: Frequency, urgency and burning x 1 day HPI: Symptoms since yesterday. Dysuria: Yes Frequency: Yes Hematuria: No, slight brownish discharge last night Nausea: No Fever or chills: No Back pain: if sits or stands too long Abdominal pain: No Prior UTI: Yes, pansensitive E. coli on culture 07/09/2022 Personal history of kidney stones: No PAST MEDICAL HISTORY Diagnosis Date BCC (basal cell carcinoma of skin) Chronic lower back pain Dr. Nur Gastric band slippage Dr. Garcia, removed 11/06 Gastric ulcer, unspecified as acute or chronic, without mention of hemorrhage or perforation, with obstruction Generalized osteoarthrosis, unspecified site back GERD (gastroesophageal reflux disease) Hyperparathyroidism (HCC) Insomnia Knee pain, chronic Lumbago Migraine without aura on diltiazem Obesity, unspecified stated BMI 40.5 HT: 61.5 WT: 220 Osteopenia of multiple sites Personal history of unspecified urinary disorder years ago since last bladder infection SCC (squamous cell carcinoma) Stroke (HCC) 12/06/1981 cva left side residual, young at age 31, likely 2/2 OCPs Unspecified hemorrhoids without mention of complication Hemorrhoids Urinary urgency Uterine prolapse s/p hysterectomy Venous incompetence bilaterally, f/u Dr. Maravilla Vitamin D deficiency PAST SURGICAL HISTORY Procedure Laterality Date ARTHRP KNE CONDYLE&PLATU MEDIAL&LAT COMPARTMENTS Left 03/17/2014 Knee replacement, total left COLONOSCOPY FLX DX W/COLLJ SPEC WHEN PFRMD 02/08/2005 Colonoscopy COLONOSCOPY FLX DX W/COLLJ SPEC WHEN PFRMD 02/24/15 Colonoscopy EGD DILATION GASTRIC/DUODENAL STRICTURE 12/20/09 ESOPHAGOGASTRODUODENOSCOPY TRANSORAL DIAGNOSTIC 11/27/13 EGD HYSTERECTOMY 10/2107 pelvic organ prolapse LAPAROSCOPY SURG CHOLECYSTECTOMY 2004 Cholecystectomy, lap LAPS GASTRIC RESTRICTIVE PROCEDURE PLACE DEVICE 04/21/2010 Performed by THI ALCOCER at [facility] LAPS RPR PARAESPHGL HRNA INCL FUNDPLSTY W/O MESH 04/21/2010 Performed by THI ALCOCER at [facility] MAL LESION FACE,EAR,EYEL 1.1-2CM 01/28/06 Left cheek and right forearm lesions PAST SURGICAL HISTORY OF July 06, 2009 Hysteroscopy D&C PAST SURGICAL HISTORY OF 10/2017 vaginal vault suspension PAST SURGICAL HISTORY OF 10/2017 Lap band removed UNLIS LAPAROSCOPIC PROCEDURE LIVER 04/21/2010 Performed by THI ALCOCER at [facility] MEDICATIONS: Current Outpatient Medications Medication Sig gabapentin (NEURONTIN) 300 mg capsule Take 1 capsule by mouth twice daily for 90 days. hydrocortisone 2.5 % ointment Apply to affected area twice daily as needed (hemorrhoids). ondansetron orally disintegrating (ZOFRAN ODT) 4 mg disintegrating tablet Take 1 tablet by mouth every 6 hours as needed for nausea/vomiting. tolterodine ER (DETROL LA) 4 mg 24 hr capsule Take 1 capsule by mouth once daily. omeprazole (PRILOSEC) 40 mg capsule Take 1 capsule by mouth once daily. atorvastatin (LIPITOR) 10 mg tablet Take 1 tablet by mouth once daily. Discontinue simvastatin amitriptyline (ELAVIL) 75 mg tablet Take 1 tablet by mouth daily at bedtime. potassium chloride (K-TAB) 10 mEq tablet Take 1 tablet by mouth once daily. dilTIAZem CD (CARTIA XT) 300 mg 24 hr capsule Take 1 capsule by mouth once daily. furosemide (LASIX) 40 mg tablet Take 1 tablet by mouth once daily. (Patient taking differently: Take 40 mg by mouth once daily. Doesn't take every day -if she's not up at 3 or 4a she wont take) HYDROcodone-acetaminophen (NORCO) 5-325 mg per tablet Take 3 tablets by mouth as needed. docusate sodium (COLACE) 100 mg capsule Take 1 capsule by mouth twice daily. cholecalciferol (VITAMIN D3) 50 mcg (2,000 unit) tablet Take 2,000 Units by mouth once daily. multivitamin tablet Take 1 tablet by mouth once daily. sulfamethoxazole-trimethoprim (BACTRIM DS,SEPTRA DS) 800-160 mg per tablet Take 1 tablet by mouth twice daily. (Patient not taking: Reported on 07/26/2022) naloxone 4 mg/actuation nasal spray (NARCAN) 1 [place] by nasal (alternating) route as needed for known or suspected opioid overdose. Use 1 spray in one nostril as needed for overdose. May repeat every2 to 3 min in alternating nostrils until medical assistance is available No current facility-administered medications for this visit. ALLERGIES: ALLERGIES Allergen Reactions Flagyl [Metronidazo* GI Upset Severe nausea, malaise, dizziness Hctz [Thiazides] Other: See Comments hypercalcemia VITALS: BP 138/84 Pulse 62 Temp 36.7 C (98 F) (Tympanic) Resp 18 Wt 84.4 kg (186 lb) SpO2 95% BMI 36.33 kg/m PHYSICAL EXAM: GEN: NAD HEENT: EOMI, conjunctiva clear, HEART: regular rate and rhythm, no murmurs LUNGS: clear to auscultation, no wheezes or crackles, no increased WOB ABDOMEN: Soft, nondistended, no masses, no suprapubic tenderness BACK: No CVA tenderness EXT: left arm fixed extended and pronated ASSESSMENT/PLAN: 1. Urinary frequency - ICD9: 788.41, ICD10: R35.0 - UA positive for mert esterase and hematuria - UA DIP, URINE (POC) - URINE CULTURE - CEPHALEXIN 500 MG CAPSULE Donnell Barden MD documented in this encounterCity Hospital12-19-2022 History of Present illness Narrative* Elly Bruno PA-C - 07/09/2022 6:46 PM EST This note was created using Diarizeriter. Subjective Janay Frederick is a 72 year old female. HPI Patient presents with urinary frequency and urgency over the past 3 days. She has had UTIs previously and this felt similar. She denies any blood in her urine. She did have some back pain a couple days ago. No abdominal pain. No vomiting. She denies diarrhea or fever. Review of Systems HENT: Negative. Respiratory: Negative. Cardiovascular: Negative. Gastrointestinal: Negative. All other systems reviewed and are negative. PAST MEDICAL HISTORY Diagnosis Date BCC (basal cell carcinoma of skin) Chronic lower back pain Dr. Nur Gastric band slippage Dr. Garcia, removed 11/06 Gastric ulcer, unspecified as acute or chronic, without mention of hemorrhage or perforation, with obstruction Generalized osteoarthrosis, unspecified site back GERD (gastroesophageal reflux disease) Hyperparathyroidism (HCC) Insomnia Knee pain, chronic Lumbago Migraine without aura on diltiazem Obesity, unspecified stated BMI 40.5 HT: 61.5 WT: 220 Osteopenia of multiple sites Personal history of unspecified urinary disorder years ago since last bladder infection SCC (squamous cell carcinoma) Stroke (HCC) 12/06/1981 cva left side residual, young at age 31, likely 2/2 OCPs Unspecified hemorrhoids without mention of complication Hemorrhoids Urinary urgency Uterine prolapse s/p hysterectomy Venous incompetence bilaterally, f/u Dr. Maravilla Vitamin D deficiency Current Outpatient Medications Medication Sig Dispense Refill gabapentin (NEURONTIN) 300 mg capsule Take 1 capsule by mouth twice daily for 90 days. 180 capsule 0 hydrocortisone 2.5 % ointment Apply to affected area twice daily as needed (hemorrhoids). 28.35 g 2 tolterodine ER (DETROL LA) 4 mg 24 hr capsule Take 1 capsule by mouth once daily. 90 capsule 3 omeprazole (PRILOSEC) 40 mg capsule Take 1 capsule by mouth once daily. 30 capsule 5 atorvastatin (LIPITOR) 10 mg tablet Take 1 tablet by mouth once daily. Discontinue simvastatin 90 tablet 3 amitriptyline (ELAVIL) 75 mg tablet Take 1 tablet by mouth daily at bedtime. 90 tablet 3 potassium chloride (K-TAB) 10 mEq tablet Take 1 tablet by mouth once daily. 90 tablet 3 dilTIAZem CD (CARTIA XT) 300 mg 24 hr capsule Take 1 capsule by mouth once daily. 90 capsule 3 furosemide (LASIX) 40 mg tablet Take 1 tablet by mouth once daily. (Patient taking differently: Take 40 mg by mouth once daily. Doesn't take every day -if she's not up at 3 or 4a she wont take) 90 tablet 1 HYDROcodone-acetaminophen (NORCO) 5-325 mg per tablet Take 3 tablets by mouth as needed. 0 docusate sodium (COLACE) 100 mg capsule Take 1 capsule by mouth twice daily. 60 capsule 11 cholecalciferol (VITAMIN D3) 50 mcg (2,000 unit) tablet Take 2,000 Units by mouth once daily. multivitamin tablet Take 1 tablet by mouth once daily. cephALEXin (KEFLEX) 500 mg capsule Take 1 capsule by mouth twice daily for 7 days. 14 capsule 0 ondansetron orally disintegrating (ZOFRAN ODT) 4 mg disintegrating tablet Take 1 tablet by mouth every 6 hours as needed for nausea/vomiting. 20 tablet 0 sulfamethoxazole-trimethoprim (BACTRIM DS,SEPTRA DS) 800-160 mg per tablet Take 1 tablet by mouth twice daily. naloxone 4 mg/actuation nasal spray (NARCAN) 1 [place] by nasal (alternating) route as needed for known or suspected opioid overdose. Use 1 spray in one nostril as needed for overdose. May repeat every2 to 3 min in alternating nostrils until medical assistance is available 2 Each 0 No current facility-administered medications for this visit. PAST SURGICAL HISTORY Procedure Laterality Date ARTHRP KNE CONDYLE&PLATU MEDIAL&LAT COMPARTMENTS Left 03/17/2014 Knee replacement, total left COLONOSCOPY FLX DX W/COLLJ SPEC WHEN PFRMD 02/08/2005 Colonoscopy COLONOSCOPY FLX DX W/COLLJ SPEC WHEN PFRMD 02/24/15 Colonoscopy EGD DILATION GASTRIC/DUODENAL STRICTURE 12/20/09 ESOPHAGOGASTRODUODENOSCOPY TRANSORAL DIAGNOSTIC 11/27/13 EGD HYSTERECTOMY 10/2107 pelvic organ prolapse LAPAROSCOPY SURG CHOLECYSTECTOMY 2004 Cholecystectomy, lap LAPS GASTRIC RESTRICTIVE PROCEDURE PLACE DEVICE 04/21/2010 Performed by THI ALCOCER at [facility] LAPS RPR PARAESPHGL HRNA INCL FUNDPLSTY W/O MESH 04/21/2010 Performed by THI ALCOCER at [facility] MAL LESION FACE,EAR,EYEL 1.1-2CM 01/28/06 Left cheek and right forearm lesions PAST SURGICAL HISTORY OF July 06, 2009 Hysteroscopy D&C PAST SURGICAL HISTORY OF 10/2017 vaginal vault suspension PAST SURGICAL HISTORY OF 10/2017 Lap band removed UNLIS LAPAROSCOPIC PROCEDURE LIVER 04/21/2010 Performed by THI ALCOCER at [facility] FAMILY HISTORY Problem Relation Age of Onset Hypertension Mother Diabetes Mother Breast Cancer Mother Heart Mother a fib Diabetes Father Heart Father angioplasty Blood Disease Brother Hairy Cell Leukemia Prostate Cancer Brother Blood Disease Maternal Grandmother Leukemia None Brother Hypertension Maternal Uncle Prostate Cancer Maternal Uncle Hypertension Maternal Aunt Social History Tobacco Use Smoking status: Never Smokeless tobacco: Never Vaping Use Vaping Use: Never used Substance Use Topics Alcohol use: No Drug use: No Objective BP 158/86 Pulse 89 Temp 36.6 C (97.8 F) Resp 20 Wt 84.4 kg (186 lb) SpO2 95% BMI 36.33 kg/m Physical Exam Vitals reviewed. Constitutional: Appearance: Normal appearance. HENT: Head: Normocephalic and atraumatic. Cardiovascular: Rate and Rhythm: Normal rate and regular rhythm. Heart sounds: Normal heart sounds. Pulmonary: Effort: Pulmonary effort is normal. Breath sounds: Normal breath sounds. Abdominal: General: Abdomen is flat. Palpations: Abdomen is soft. Tenderness: There is no abdominal tenderness. There is no right CVA tenderness or left CVA tenderness. Skin: General: Skin is warm and dry. Neurological: Mental Status: She is alert. Assessment and Plan ASSESSMENT/PLAN: 1. Acute UTI - ICD9: 599.0, ICD10: N39.0 acute - UA positive for mert esterase, hematuria, proteinuria, and nitrates - Send urine for culture - Begin treatment with keflex for 7 days - UA DIP, URINE (POC) - URINE CULTURE Elly Bruno PA-C documented in this encounterCity Hospital12-06-2022 Miscellaneous Notes* Telephone Encounter - Kassandra Sharma APRN.LENA - 06/26/2022 11:51 AM EST PDMP website checked and validated. All prescriptions have been APPROPRIATELY filled. No suspiciousactivity was identified. 06/26/2022 by Kassandra Sharma APRN.LENA * Telephone Encounter - Mickie Babcock Pss - 06/25/2022 12:49 PM EST Patient has been identified by name and date of : Yes Requested Prescriptions Pending Prescriptions Disp Refills gabapentin (NEURONTIN) 300 mg capsule 180 capsule 0 Sig: Take 1 capsule by mouth twice daily for 90 days. hydrocortisone 2.5 % ointment 28.35 g 2 Sig: Apply to affected area twice daily as needed (hemorrhoids). RX INSTRUCTIONS: Patient aware RX will be sent to pharmacy. No need to notify patient. Mickie Babcock Pss documented in this encounterCity Hospital11-10-2022 Miscellaneous Notes* Telephone Encounter - Shorty Teresa MD - 05/31/2022 1:26 PM EST Agree. * Telephone Encounter - Neva Martino RN - 05/31/2022 1:20 PM EST Pt called and is notified of providers message and instructions. Pt voices understanding. Went overhalf Gatorade or Powerade with water or Pedialyte. Let Pt know to start off with the BRAT diet and bland foods before introducing anything else. Pt states if she doesn't feel well tomorrow she will call in for an appointment. Neva Martino RN * Telephone Encounter - Shorty Teresa MD - 05/31/2022 1:13 PM EST Rx for zofran sent to local pharmacy for nausea and vomiting. Recommend pushing PO fluids, bland diet, rest at home. Recommend OV or VV tomorrow if symptoms persist. * Telephone Encounter - Neva Martino RN - 05/31/2022 12:52 PM EST Protocol recommends call PCP now. PCPs nurse will get back with Pt as soon as he is back in the office. Care plan reviewed with patient. Patient voices understanding. Advised patient that if symptomsget worse to be evaluated in Urgent Care or ER. Reason for Disposition Patient is HIGH RISK (e.g., age > 64 years, , HIV+, or chronic medical condition) Answer Assessment - Initial Assessment Questions 1. WORST SYMPTOM: Vomiting, but it has eased up today. 2. ONSET: Symptoms started last 05/24/22. 3. COUGH: Denies 4. RESPIRATORY DISTRESS: Denies. 5. FEVER: Denies. 98.5 6. EXPOSURE: Denies 7. FLU VACCINE: 2 weeks ago 8. HIGH RISK DISEASE: Pt denies heart or lung disease, asthma, weak immune system, or other HIGH RISK conditions. 9. : Postmenopausal 10. OTHER SYMPTOMS: Pt denies runny nose or sore throat. Pt reports muscle aches, headache, diarrhea, vomiting, and nausea. Protocols used: Influenza - [id number] documented in this encounterCity Hospital10-07-2022 Miscellaneous Notes* Letter - Mammography Coordinator - 04/27/2022 12:32 PM EDT April 27, 2022 PID: [id number] Janay Frederick [address] [place] [address] Dear Ms. Frederick, We are pleased to inform you that the results of your recent breast imaging exam on 04/26/2022 are normal. Early detection of cancer is very important. We also understand recommendations regarding breast cancer screening are controversial. Please discuss with your primary care provider which strategy is best for you and whether a mammogram is right for you. Your imaging studies and [facility] and are available for your continuing care. Thank you for allowing us to help in meeting your health care needs. Sincerely, Dr. Babin Interpreting Radiologist [facility] (Normal over 40) documented in this encounterCity Hospital10-06-2022 History of Present illness Narrative* RT Tano(R) - 04/26/2022 2:30 PM EDT Radiology Service Progress Note PATIENT NAME: Janay Frederick DATE OF SERVICE: April 26, 2022 TIME: 3:10 PM PATIENT IDENTITY VERIFICATION COMPLETED USING TWO (2) IDENTIFIERS: Name and Date of confirmedby patient verbally. FALL SCREENING: Has the patient had 2 falls in the last year or 1 fall with injury or currently using an Ambulatory Assistive Device (Walker, Cane, Wheelchair, Crutches, etc.)? Yes, Patient High Riskfor Falls What interventions were put in place to prevent falls during this visit? Offered Assistance with Transfers/Clothing PATIENT GENDER DATA: Female. status: : No status: NO. PATIENT RELEVANT IMPLANT DATA REVIEWED: Not Applicable RADIOLOGY DEPARTMENT: Mammography PERIPHERAL IV DATA: Not applicable SIGNED BY: RT Tano(R) April 26, 2022 3:10 PM documented in this encounterCity Hospital09-30-2022 Miscellaneous Notes* Telephone Encounter - Isabell Hancokc Cma - 04/20/2022 10:52 AM EDT Patient notified and verbalized understanding Isabell Hancock Cma * Telephone Encounter - Shorty Teresa MD - 04/19/2022 4:43 PM EDT I would not change any of her meds at this point. Her calcium level is not due until August and she has an order in the system. * Telephone Encounter - Neva Martino RN - 04/19/2022 3:24 PM EDT Pt called and is notified of providers results and instructions. Pt voices understanding. Pt askingif there is any medication she could be put on that doesn't cause her potassium to drop. Pt was also asking about a yearly calcium dose provider orders for her and when that would be due. Please calland advise. Neva Martino RN * Telephone Encounter - Serina Kovacs Ma - 04/19/2022 3:05 PM EDT Message left for pt to call back for results. Serina Kovacs MA * Telephone Encounter - Shorty Teresa MD - 04/19/2022 1:45 PM EDT Repeat alk phos level is normal at <140. Bone and liver fraction are both normal, but LFTs remain mildly elevated. Recommend avoidance of alcohol and tylenol. Recent liver ultrasound negative for fatty liver disease or signs of cirrhosis. Potassium level slightly low at 3.4. recommend she continue with current potassium supplement, increase potassium intake in her diet. Recheck levels in 2-4 weeks to see if potassium dosage needs increased, or if this is lab error. documented in this encounterCity Hospital09-28-2022 Miscellaneous Notes* Telephone Encounter - Tarsha Hernández RN - 04/18/2022 11:49 AM EDT Patient calls and is asking if prescription can be sent to [facility]. Please review and advise, Tarsha Hernández RN documented in this encounterCity Hospital09-13-2022 Miscellaneous Notes* Telephone Encounter - Griselda Mendez LPN - 04/03/2022 10:01 AM EDT Patient returned call and said she was switched to Omeprazole in Aug. She will need new rx for thatmedication. Pending rx to file. * Telephone Encounter - Yael Flores LPN - 2022 3:18 PM EDT Phoned patient to confirm if she is taking both the omeprazole 40mg daily and famotidine 20mg BID before requesting refill from provider. * Telephone Encounter - Payton Santos - 2022 2:52 PM EDT Famotidine 20 mg, not found on medication list, please send this RX to her pharmacy, [facility] in [place]. documented in this encounterCity Hospital09-07-2022 Miscellaneous Notes* Telephone Encounter - Marlene Loaiza LPN - 03/28/2022 8:35 AM EDT Paperwork faxed to [facility] at . Marlene Loaiza LPN * Telephone Encounter - Kassandra Sharma APRN.CNP - 03/28/2022 7:42 AM EDT Please fax paperwork back to [facility]. Kassandra Sharma APRN.LENA * Telephone Encounter - Marlene Loaiza LPN - 03/27/2022 9:58 AM EDT Patient notified of message below. States she will try the medication they're recommending. Please send to [facility]. Marlene Loaiza LPN * Telephone Encounter - Kassandra Sharma APRN.CNP - 03/27/2022 9:46 AM EDT Please call patient and let her know [facility] has sent request over to change Oxybutynin for Detrol ER due to patient was having trouble cutting tablets in half and dry mouth. Does she want me to change this. Kassandra Sharma APRN.CNP documented in this encounterCity Hospital08-28-2022 Miscellaneous Notes* Telephone Encounter - Shorty Teresa MD - 03/18/2022 8:58 AM EDT PDMP website checked and validated. All prescriptions have been APPROPRIATELY filled. No suspiciousactivity was identified. 03/18/2022 by Shorty Teresa MD * Telephone Encounter - Yael Flores LPN - 03/16/2022 2:00 PM EDT ELDER 07/13/22 NOV 08/13/21 * Telephone Encounter - Petra Presley Pss - 03/16/2022 12:34 PM EDT Patient has been identified by name and date of : Yes Requested Prescriptions Pending Prescriptions Disp Refills gabapentin (NEURONTIN) 300 mg capsule 180 capsule 0 Sig: Take 1 capsule by mouth twice daily for 90 days. RX INSTRUCTIONS: Patient aware RX will be sent to pharmacy. No need to notify patient. Petramichael Presley Pss documented in this encounterCity Hospital07-21-2022 Miscellaneous Notes* Telephone Encounter - Neva Martino RN - 02/08/2022 11:49 AM EDT Called and left a detailed voicemail notifying patient of providers message. Hospital phone number was left in case patient had any questions. Endo consult added. Neva Martino RN * Telephone Encounter - Shorty Teresa MD - 02/08/2022 11:29 AM EDT Mammogram ordered as requested. Yes, would have her schedule follow up with endocrinology for history of hypercalcemia as recommended by their office. * Telephone Encounter - Elizabeth Cordova Ma - 02/08/2022 10:44 AM EDT Patient was notified and is asking if you want her to go back to Endo? Patient would like order placed for mammogram in April Elizabeth Cordova Ma * Telephone Encounter - Shorty Teresa MD - 02/08/2022 10:41 AM EDT Patient's liver appears to be normal on ultrasound. There was a portion of the right lobe which wassuboptimal due to overlying gas. Recommend avoidance of alcohol and tylenol and will recheck levels in 2-3 months. documented in this encounterCity Hospital07-15-2022 History of Past illness Narrative* Problem Noted Date Diagnosed Date Resolved Date Insomnia 02/02/2022 01/31/2023 Preop testing 10/11/2017 06/26/2018 Overview: Added automatically from request for surgery [id number] Dysphagia 07/09/2017 10/24/2018 Gastric band slippage 07/09/20172017 Difficulty swallowing solids 10/20/2015 10/24/2018 Special screening for malign ant neoplasms, colon 02/24/2015 10/24/2018 Morbid obesity 12/20/2009 01/31/2023 Gastric ulcer with obstruction 12/20/2009 10/24/2018 Leiomyoma of uterus, unspecified 02/11/2009 10/24/2018 Other specified congenital anomaly of skin 07/02/2005 01/16/2016 Acute, but ill-defined, cere brovascular disease 09/19/2017 Unspecified hemorrhoids with out mention of complication 01/16/2016 Overview: Hemorrhoids documented as of this encounter (statuses as of 01/31/2023) [facility] Narrative* Problem Noted Date Diagnosed Date Resolved Date Insomnia 02/02/2022 01/31/2023 Preop testing 10/11/2017 06/26/2018 Overview: Added automatically from request for surgery [id number] Dysphagia 07/09/2017 10/24/2018 Gastric band slippage 07/09/20172017 Difficulty swallowing solids 10/20/2015 10/24/2018 Special screening for malign ant neoplasms, colon 02/24/2015 10/24/2018 Morbid obesity 12/20/2009 01/31/2023 Gastric ulcer with obstruction 12/20/2009 10/24/2018 Leiomyoma of uterus, unspecified 02/11/2009 10/24/2018 Other specified congenital anomaly of skin 07/02/2005 01/16/2016 Acute, but ill-defined, cere brovascular disease 09/19/2017 Unspecified hemorrhoids with out mention of complication 01/16/2016 Overview: Hemorrhoids documented as of this encounter (statuses as of 02/01/2023) [facility] Narrative* Problem Noted Date Diagnosed Date Resolved Date Insomnia 02/02/2022 01/31/2023 Preop testing 10/11/2017 06/26/2018 Overview: Added automatically from request for surgery [id number] Dysphagia 07/09/2017 10/24/2018 Gastric band slippage 07/09/20172017 Difficulty swallowing solids 10/20/2015 10/24/2018 Special screening for malign ant neoplasms, colon 02/24/2015 10/24/2018 Morbid obesity 12/20/2009 01/31/2023 Gastric ulcer with obstruction 12/20/2009 10/24/2018 Leiomyoma of uterus, unspecified 02/11/2009 10/24/2018 Other specified congenital anomaly of skin 07/02/2005 01/16/2016 Acute, but ill-defined, cere brovascular disease 09/19/2017 Unspecified hemorrhoids with out mention of complication 01/16/2016 Overview: Hemorrhoids documented as of this encounter (statuses as of 02/01/2023) [facility] Narrative* Problem Noted Date Diagnosed Date Resolved Date Insomnia 02/02/2022 01/31/2023 Preop testing 10/11/2017 06/26/2018 Overview: Added automatically from request for surgery [id number] Dysphagia 07/09/2017 10/24/2018 Gastric band slippage 07/09/20172017 Difficulty swallowing solids 10/20/2015 10/24/2018 Special screening for malign ant neoplasms, colon 02/24/2015 10/24/2018 Morbid obesity 12/20/2009 01/31/2023 Gastric ulcer with obstruction 12/20/2009 10/24/2018 Leiomyoma of uterus, unspecified 02/11/2009 10/24/2018 Other specified congenital anomaly of skin 07/02/2005 01/16/2016 Acute, but ill-defined, cere brovascular disease 09/19/2017 Unspecified hemorrhoids with out mention of complication 01/16/2016 Overview: Hemorrhoids documented as of this encounter (statuses as of 02/05/2023) [facility] Narrative* Problem Noted Date Diagnosed Date Resolved Date Insomnia 02/02/2022 01/31/2023 Preop testing 10/11/2017 06/26/2018 Overview: Added automatically from request for surgery [id number] Dysphagia 07/09/2017 10/24/2018 Gastric band slippage 07/09/20172017 Difficulty swallowing solids 10/20/2015 10/24/2018 Special screening for malign ant neoplasms, colon 02/24/2015 10/24/2018 Morbid obesity 12/20/2009 01/31/2023 Gastric ulcer with obstruction 12/20/2009 10/24/2018 Leiomyoma of uterus, unspecified 02/11/2009 10/24/2018 Other specified congenital anomaly of skin 07/02/2005 01/16/2016 Acute, but ill-defined, cere brovascular disease 09/19/2017 Unspecified hemorrhoids with out mention of complication 01/16/2016 Overview: Hemorrhoids documented as of this encounter (statuses as of 02/27/2023) [facility] Narrative* Problem Noted Date Diagnosed Date Resolved Date Insomnia 02/02/2022 01/31/2023 Preop testing 10/11/2017 06/26/2018 Overview: Added automatically from request for surgery [id number] Dysphagia 07/09/2017 10/24/2018 Gastric band slippage 07/09/20172017 Difficulty swallowing solids 10/20/2015 10/24/2018 Special screening for malign ant neoplasms, colon 02/24/2015 10/24/2018 Morbid obesity 12/20/2009 01/31/2023 Gastric ulcer with obstruction 12/20/2009 10/24/2018 Leiomyoma of uterus, unspecified 02/11/2009 10/24/2018 Other specified congenital anomaly of skin 07/02/2005 01/16/2016 Acute, but ill-defined, cere brovascular disease 09/19/2017 Unspecified hemorrhoids with out mention of complication 01/16/2016 Overview: Hemorrhoids documented as of this encounter (statuses as of 03/28/2023) [facility] Narrative* Problem Noted Date Diagnosed Date Resolved Date Insomnia 02/02/2022 01/31/2023 Preop testing 10/11/2017 06/26/2018 Overview: Added automatically from request for surgery [id number] Dysphagia 07/09/2017 10/24/2018 Gastric band slippage 07/09/20172017 Difficulty swallowing solids 10/20/2015 10/24/2018 Special screening for malign ant neoplasms, colon 02/24/2015 10/24/2018 Morbid obesity 12/20/2009 01/31/2023 Gastric ulcer with obstruction 12/20/2009 10/24/2018 Leiomyoma of uterus, unspecified 02/11/2009 10/24/2018 Other specified congenital anomaly of skin 07/02/2005 01/16/2016 Acute, but ill-defined, cere brovascular disease 09/19/2017 Unspecified hemorrhoids with out mention of complication 01/16/2016 Overview: Hemorrhoids documented as of this encounter (statuses as of 2023) [facility] Narrative* Problem Noted Date Diagnosed Date Resolved Date Insomnia 02/02/2022 01/31/2023 Preop testing 10/11/2017 06/26/2018 Overview: Added automatically from request for surgery [id number] Dysphagia 07/09/2017 10/24/2018 Gastric band slippage 07/09/20172017 Difficulty swallowing solids 10/20/2015 10/24/2018 Special screening for malign ant neoplasms, colon 02/24/2015 10/24/2018 Morbid obesity 12/20/2009 01/31/2023 Gastric ulcer with obstruction 12/20/2009 10/24/2018 Leiomyoma of uterus, unspecified 02/11/2009 10/24/2018 Other specified congenital anomaly of skin 07/02/2005 01/16/2016 Acute, but ill-defined, cere brovascular disease 09/19/2017 Unspecified hemorrhoids with out mention of complication 01/16/2016 Overview: Hemorrhoids documented as of this encounter (statuses as of 04/12/2023) [facility] Narr[facility]* Problem Noted Date Diagnosed Date Resolved Date Insomnia 02/02/2022 01/31/2023 Preop testing 10/11/2017 06/26/2018 Overview: Added automatically from request for surgery [id number] Dysphagia 07/09/2017 10/24/2018 Gastric band slippage 07/09/20172017 Difficulty swallowing solids 10/20/2015 10/24/2018 Special screening for malign ant neoplasms, colon 02/24/2015 10/24/2018 Morbid obesity 12/20/2009 01/31/2023 Gastric ulcer with obstruction 12/20/2009 10/24/2018 Leiomyoma of uterus, unspecified 02/11/2009 10/24/2018 Other specified congenital anomaly of skin 07/02/2005 01/16/2016 Acute, but ill-defined, cere brovascular disease 09/19/2017 Unspecified hemorrhoids with out mention of complication 01/16/2016 Overview: Hemorrhoids documented as of this encounter (statuses as of 05/21/2023) [facility] Narrative* Problem Noted Date Diagnosed Date Resolved Date Insomnia 02/02/2022 01/31/2023 Preop testing 10/11/2017 06/26/2018 Overview: Added automatically from request for surgery [id number] Dysphagia 07/09/2017 10/24/2018 Gastric band slippage 07/09/20172017 Difficulty swallowing solids 10/20/2015 10/24/2018 Special screening for malign ant neoplasms, colon 02/24/2015 10/24/2018 Morbid obesity 12/20/2009 01/31/2023 Gastric ulcer with obstruction 12/20/2009 10/24/2018 Leiomyoma of uterus, unspecified 02/11/2009 10/24/2018 Other specified congenital anomaly of skin 07/02/2005 01/16/2016 Acute, but ill-defined, cere brovascular disease 09/19/2017 Unspecified hemorrhoids with out mention of complication 01/16/2016 Overview: Hemorrhoids documented as of this encounter (statuses as of 05/26/2023) [facility] Narrative* Problem Noted Date Diagnosed Date Resolved Date Insomnia 02/02/2022 01/31/2023 Preop testing 10/11/2017 06/26/2018 Overview: Added automatically from request for surgery [id number] Dysphagia 07/09/2017 10/24/2018 Gastric band slippage 07/09/20172017 Difficulty swallowing solids 10/20/2015 10/24/2018 Special screening for malign ant neoplasms, colon 02/24/2015 10/24/2018 Morbid obesity 12/20/2009 01/31/2023 Gastric ulcer with obstruction 12/20/2009 10/24/2018 Leiomyoma of uterus, unspecified 02/11/2009 10/24/2018 Other specified congenital anomaly of skin 07/02/2005 01/16/2016 Acute, but ill-defined, cere brovascular disease 09/19/2017 Unspecified hemorrhoids with out mention of complication 01/16/2016 Overview: Hemorrhoids documented as of this encounter (statuses as of 05/30/2023) [facility] M[facility]* Telephone Encounter - Neva Martino RN - 02/01/2022 4:54 PM EDT Pt called and is notified of providers results and instructions. Pt voices understanding. Put Pt through to scheduling to set up US appointment. Neva Martino RN * Telephone Encounter - Shorty Teresa MD - 02/01/2022 4:20 PM EDT Patient's alk phos remains high just like 4 months ago, but now her liver function is up slightly too. Recommend liver ultrasound to further evaluate. documented in this encounterCity Hospital06-28-2022 Miscellaneous Notes* Telephone Encounter - Latanya Love RN - 01/16/2022 9:06 AM EDT Images from the original note were not included. Anita Campbell APRN.LENA Tomas RN; A Urogyn Nurse Triage Pool 16 hours ago (4:31 PM) Dear Urogyn team - Are you able to assist with this? This was sent to the oncology team by mistake. Thank you, Anita Attempted to call pt for clarification Left msg to call office. Latanya Love RN * Telephone Encounter - Vanesa Tomas RN - 01/15/2022 4:22 PM EDT Will send to [employer] [employer] [facility] to possibly help assist with this. Thank you. * Telephone Encounter - Kassandra Sharma APRN.CNP - 01/15/2022 3:38 PM EDT She would need to discuss this with the surgeon who performed the surgery. Thanks, Kassandra Sharma APRN.CNP * Telephone Encounter - Vanesa Tomas RN - 01/15/2022 3:21 PM EDT Patient calling and states she had a hysterectomy in October of 2017 and had a hernia repaired at that time. She is asking how she can go about finding how they repaired the hernia, what they used to repair the hernia with and why they repaired it while doing the hysterectomy? Patient contacted Medical Records and states she was advised to call her PCP office for this information. This nurse unable to find answers in previous notes. Patient asking if PCP could advise on this, by any chance? Thank you. documented in this encounterCity Hospital06-08-2022 Miscellaneous Notes* Telephone Encounter - Marlene Loaiza LPN - 12/27/2021 2:26 PM EDT Order faxed to [facility]. Patient notified. Marlene Loaiza LPN * Telephone Encounter - Kassandra Sharma APRN.CNP - 12/27/2021 1:28 PM EDT Please fax orders for compression hose. In my outbox. Please let patient know when faxed. Kassandra Sharma APRN.LENA * Telephone Encounter - Carmel Cheng Pss - 12/27/2021 12:44 PM EDT Janay Frederick is calling Shorty Teresa MD today to request a prescription/order is faxed to [facility] for compression stockings: Extremity: Pair Compression: 20-30 mmHg Style: Patient choice (open or closed toe) Length: Knee-high Current ones are over one year old and worn out. Please notify patient once this is completed. Patient has been identified by name and birthdate. Duration of symptoms: N/A Person calling: self Call patient at: on cell [phone] (home) [phone] (cell) Was an appointment scheduled: No Closing statement: Results or non-symptom based questions: [facility], your call will be returned within the next business day. Carmel Cheng Pss documented in this encounterCity Hospital06-06-2022 Miscellaneous Notes* Telephone Encounter - Kassandra Sharma APRN.CNP - 12/25/2021 1:32 PM EDT PDMP website checked and validated. All prescriptions have been APPROPRIATELY filled. No suspiciousactivity was identified. 12/25/2021 by Kassandra Sharma APRN.LENA * Telephone Encounter - Chelsea Riojas - 12/25/2021 11:34 AM EDT Patient just wanted to let Dr. Teresa to know that she is NOT using pain patches as she does not want any opiates in her system. Patient would also like a new prescription for Compression socks as well. If you can contact patient [phone]. Patient has been identified by name and date of : Yes Pending Prescriptions Disp Refills GABAPENTIN 300 MG CAPSULE 180 capsule 0 Sig: Take 1 capsule by mouth twice daily for 90 days. TUYET: No DILTIAZEM SR 300 MG 24 HR CAP 90 capsule 3 Sig: Take 1 capsule by mouth once daily. TUYET: No OXYBUTYNIN CHLORIDE 5 MG TABLET 90 tablet 1 Sig: Take 0.5 tablets by mouth twice daily. TUYET: No ELDER-12/05/21 Labs-09/11/21 NOV-01/24/22 RX INSTRUCTIONS: Patient aware RX will be sent to pharmacy. No need to notify patient. Chelsea Toro Pss documented in this encounterCity Hospital05-17-2022 History of Present illness Narrative* Shorty Teresa MD - 12/05/2021 7:02 PM EDT Chief Complaint Patient presents with: ER F/U: 12/02/21 HPI Janay Frederick is a 71 year old female who presents here today for ER Follow Up.. Patient evaluated at [facility] ED on 12/02 for complaint of dizziness and increased fatigue starting the day prior. Did have fall the day before landing on her wastebasket without injury. Also noted some nausea and soreness in her muscles on her upper back/shoulders. Normal physical exam. Workup in the EDpertinent for UTI with urine culture growing e coli. Started on bactrim DS x3 days which UTI was susceptible to. Noted some hypokalemia which was treated with 40 meq of potasium. Recommended to push PO fluids and follow up with our office on discharge home. Since discharge, patient has been taking her Bactrim as prescribed and will finish it tomorrow morning. States that her urinary urgency has resolved. Denies dysuria, hematuria, frequency, abdominal pain, fever/chills, nausea, vomiting. Dizziness has improved and has not had any falls since leaving the ER. Using her cane with ambulation. States that she does still feel tired. Noted that she has 2 butrans patches on today. States she has had these on for about 3 days now. Discussed she should only have one on at a time and should replace it once per week. Taking [place] 3 times per day as well. Does not have narcan at home in case of overdose. Was not aware Butrans patch was an opioid. Past medical history, appointments, medications, allergies reviewed. Previous Medical History PAST MEDICAL HISTORY Diagnosis Date BCC (basal cell carcinoma of skin) Chronic lower back pain Dr. Nur Gastric band slippage Dr. Garcia, removed 11/06 Gastric ulcer, unspecified as acute or chronic, without mention of hemorrhage or perforation, with obstruction Generalized osteoarthrosis, unspecified site back GERD (gastroesophageal reflux disease) Hyperparathyroidism (HCC) Insomnia Knee pain, chronic Lumbago Migraine without aura on diltiazem Obesity, unspecified stated BMI 40.5 HT: 61.5 WT: 220 Osteopenia of multiple sites Personal history of unspecified urinary disorder years ago since last bladder infection SCC (squamous cell carcinoma) Stroke (HCC) 12/06/1981 cva left side residual, young at age 31, likely 2/2 OCPs Unspecified hemorrhoids without mention of complication Hemorrhoids Urinary urgency Uterine prolapse s/p hysterectomy Venous incompetence bilaterally, f/u Dr. Maravilla Vitamin D deficiency Previous Surgical History PAST SURGICAL HISTORY Procedure Laterality Date ARTHRP KNE CONDYLE&PLATU MEDIAL&LAT COMPARTMENTS Left 03/17/2014 Knee replacement, total left COLONOSCOPY FLX DX W/COLLJ SPEC WHEN PFRMD 02/08/2005 Colonoscopy COLONOSCOPY FLX DX W/COLLJ SPEC WHEN PFRMD 02/24/15 Colonoscopy EGD DILATION GASTRIC/DUODENAL STRICTURE 12/20/09 ESOPHAGOGASTRODUODENOSCOPY TRANSORAL DIAGNOSTIC 11/27/13 EGD HYSTERECTOMY 10/2107 pelvic organ prolapse LAPAROSCOPY SURG CHOLECYSTECTOMY 2005 Cholecystectomy, lap LAPS GASTRIC RESTRICTIVE PROCEDURE PLACE DEVICE 04/21/2010 Performed by THI ALCOCER at [facility] LAPS RPR PARAESPHGL HRNA INCL FUNDPLSTY W/O MESH 04/21/2010 Performed by THI ALCOCER at [facility] MAL LESION FACE,EAR,EYEL 1.1-2CM 01/28/06 Left cheek and right forearm lesions PAST SURGICAL HISTORY OF July 06, 2009 Hysteroscopy D&C PAST SURGICAL HISTORY OF 10/2017 vaginal vault suspension PAST SURGICAL HISTORY OF 10/2017 Lap band removed UNLIS LAPAROSCOPIC PROCEDURE LIVER 04/21/2010 Performed by THI ALCOCER at [facility] Family History FAMILY HISTORY Problem Relation Age of Onset Hypertension Mother Diabetes Mother Breast Cancer Mother Heart Mother a fib Diabetes Father Heart Father angioplasty Blood Disease Brother Hairy Cell Leukemia Prostate Cancer Brother Blood Disease Maternal Grandmother Leukemia None Brother Hypertension Maternal Uncle Prostate Cancer Maternal Uncle Hypertension Maternal Aunt Patient Allergies ALLERGIES Allergen Reactions Flagyl [Metronidazo* GI Upset Severe nausea, malaise, dizziness and GI upset Hctz [Thiazides] Other: See Comments hypercalcemia Current Medications Current Outpatient Medications on File Prior to Visit Medication Sig gabapentin (NEURONTIN) 300 mg capsule Take 1 capsule by mouth twice daily for 90 days. furosemide (LASIX) 40 mg tablet Take 1 tablet by mouth once daily. potassium chloride (K-TAB) 10 mEq tablet Take 1 tablet by mouth once daily. amitriptyline (ELAVIL) 75 mg tablet Take 1 tablet by mouth daily at bedtime. hydrocortisone 2.5 % ointment Apply to affected area twice daily as needed (hemorrhoids). omeprazole (PRILOSEC) 40 mg capsule Take 1 capsule by mouth once daily. buprenorphine (BUTRANS) 10 mcg/hour Apply 1 Patch as directed one time a week for 30 days. oxybutynin (DITROPAN) 5 mg tablet Take 0.5 tablets by mouth twice daily. atorvastatin (LIPITOR) 10 mg tablet Take 1 tablet by mouth once daily. Discontinue simvastatin zoledronic acid (RECLAST) 5 mg/100 mL pgbk PREMIX piggyback Inject 100 mL intravenously one time only for 1 dose. dilTIAZem CD (CARTIA XT) 300 mg 24 hr capsule Take 1 capsule by mouth once daily. HYDROcodone-acetaminophen (NORCO) 5-325 mg per tablet Take 2 tablets by mouth once daily. docusate sodium (COLACE) 100 mg capsule Take 1 capsule by mouth twice daily. cholecalciferol (VITAMIN D-3) 2,000 unit tablet Take 2,000 Units by mouth once daily. multivitamin (MULTIPLE VITAMINS) tablet Take 1 tablet by mouth once daily. No current facility-administered medications on file prior to visit. Social History Social History Tobacco Use Smoking status: Never Smoker Smokeless tobacco: Never Used Vaping Use Vaping Use: Never used Substance Use Topics Alcohol use: No Drug use: No Review of Symptoms REVIEW OF SYSTEMS See HPI EXAM: BP 110/58 Pulse 80 Resp 18 Wt 83.8 kg (184 lb 12.8 oz) SpO2 96% BMI 36.09 kg/m General Appearance: Well appearing, alert, in no acute distress, well-hydrated, well nourished.. Skin: Skin color, texture, turgor normal, no suspicious rashes or lesions. Lungs: Lungs clear to auscultation. No wheezing, rhonchi, rales.. Heart: RRR without murmur, gallop, or rubs. No ectopy. Abdomen: Normal abdominal exam, Abdomen soft, non-tender. Bowel sounds normal. No masses, organomegaly. Extremities: No deformities, edema, skin discoloration, clubbing or cyanosis. Good capillary refill. . Health Maintenance List SHINGRIX VACCINE(1 of 2) Never done ADVANCE DIRECTIVE DISCUSSION Never done COVID-19 VACCINE(4 - Booster for Pfizer series) due on 10/22/2021 DEPRESSION SCREENING due on 03/17/2022 MAMMOGRAM due on 05/18/2022 LIPID SCREEN due on 08/27/2024 DIABETES SCREEN due on 09/11/2024 COLORECTAL CANCER SCREENING due on 02/24/2025 DTAP,TDAP,TD(4 - Td or Tdap) due on 10/09/2026 BONE DENSITY Completed INFLUENZA Completed HEPATITIS C SCREENING Completed PNEUMOVAX AGE 65 AND OVER WITH 5YR LOOKBACK Completed MENINGOCOCCAL CONJUGATE Aged Out ASSESSMENT/PLAN: 1. Acute cystitis without hematuria - ICD9: 595.0, ICD10: N30.00 (primary diagnosis) Urinary symptoms improving. On appropriate abx. Push PO fluids. Call with recurrent symptoms. 2. Dizziness - ICD9: 780.4, ICD10: R42 Resolved. Encouraged continued use of her cane during ambulation. 3. Fatigue, unspecified type - ICD9: 780.79, ICD10: R53.83 Suspect this is related to recent infection as well as opioid use. Discussed she needs to take off one of her butrans patches when she gets home and will give rx for Narcan nasal spray in case of overdose. Patient is living with roommate. Encouraged her to discuss with them proper use. I went over the signs of opioid overdose with the patient. Red flags for re-assessment reviewed with patient in detail. 4. Hypokalemia - ICD9: 276.8, ICD10: E87.6 Recheck potassium level. - COMP METABOLIC PANEL 5. Opioid use - ICD9: 305.50, ICD10: F11.90 See above. - NALOXONE 4 MG/ACTUATION NASAL SPRAY [facility]y Teresa [facility] Past illness Narrative* Problem Noted Date Resolved Date Preop testing 10/11/2017 06/26/2018 Overview: Added automatically from request for surgery [id number] Dysphagia 07/09/2017 10/24/2018 Gastric band slippage 07/09/2017 06/26/2018 Difficulty swallowing solids 10/20/201511/2018 Special screening for malignant neoplasms, colon 02/24/2015 10/24/2018 Morbid obesity 12/20/2009 07/27/2021 Gastric ulcer with obstruction 12/20/2009 0 10/24/2018 Leiomyoma of uterus, unspecified 02/11/2009 10/24/2018 Other specified congenital anomaly of skin 07/0201/16/2016 Acute, but ill-defined, cerebrovascular disease 09/19/2017 Unspecified hemorrhoids without mention of compl ication 01/16/2016 Overview: Hemorrhoids documented as of this encounter (statuses as of 12/06/2021) [facility]arrative* Problem Noted Date Resolved Date Preop testing 10/11/2017 06/26/2018 Overview: Added automatically from request for surgery [id number] Dysphagia 07/09/2017 10/24/2018 Gastric band slippage 07/09/2017 06/26/2018 Difficulty swallowing solids 10/20/201511/2018 Special screening for malignant neoplasms, colon 02/24/2015 10/24/2018 Morbid obesity 12/20/2009 07/27/2021 Gastric ulcer with obstruction 12/20/2009 0 10/24/2018 Leiomyoma of uterus, unspecified 02/11/2009 10/24/2018 Other specified congenital anomaly of skin 07/0201/16/2016 Acute, but ill-defined, cerebrovascular disease 09/19/2017 Unspecified hemorrhoids without mention of compl ication 01/16/2016 Overview: Hemorrhoids documented as of this encounter (statuses as of 12/25/2021) [facility]arrative* Problem Noted Date Resolved Date Preop testing 10/11/2017 06/26/2018 Overview: Added automatically from request for surgery [id number] Dysphagia 07/09/2017 10/24/2018 Gastric band slippage 07/09/2017 06/26/2018 Difficulty swallowing solids 10/20/201511/2018 Special screening for malignant neoplasms, colon 02/24/2015 10/24/2018 Morbid obesity 12/20/2009 07/27/2021 Gastric ulcer with obstruction 12/20/2009 0 10/24/2018 Leiomyoma of uterus, unspecified 02/11/2009 10/24/2018 Other specified congenital anomaly of skin 07/0201/16/2016 Acute, but ill-defined, cerebrovascular disease 09/19/2017 Unspecified hemorrhoids without mention of compl ication 01/16/2016 Overview: Hemorrhoids documented as of this encounter (statuses as of 12/27/2021) [facility]* Problem Noted Date Resolved Date Preop testing 10/11/2017 06/26/2018 Overview: Added automatically from request for surgery [id number] Dysphagia 07/09/2017 10/24/2018 Gastric band slippage 07/09/2017 06/26/2018 Difficulty swallowing solids 10/20/201511/2018 Special screening for malignant neoplasms, colon 02/24/2015 10/24/2018 Morbid obesity 12/20/2009 07/27/2021 Gastric ulcer with obstruction 12/20/2009 0 10/24/2018 Leiomyoma of uterus, unspecified 02/11/2009 10/24/2018 Other specified congenital anomaly of skin 07/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/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 Acute, but ill-defined, cerebrovascular disease 09/19/2017 Unspecified hemorrhoids without mention of compl ication 01/16/2016 Overview: Hemorrhoids documented as of this encounter (statuses as of 01/24/2022) [facility]* Problem Noted Date Resolved Date Preop testing 10/11/2017 06/26/2018 Overview: Added automatically from request for surgery [id number] Dysphagia 07/09/2017 10/24/2018 Gastric band slippage 07/09/2017 06/26/2018 Difficulty swallowing solids 10/20/201511/2018 Special screening for malignant neoplasms, colon 02/24/2015 10/24/2018 Morbid obesity 12/20/2009 07/27/2021 Gastric ulcer with obstruction 12/20/2009 0 10/24/2018 Leiomyoma of uterus, unspecified 02/11/2009 10/24/2018 Other specified congenital anomaly of skin 07/0201/16/2016 Acute, but ill-defined, cerebrovascular disease 09/19/2017 Unspecified hemorrhoids without mention of compl ication 01/16/2016 Overview: Hemorrhoids documented as of this encounter (statuses as of 02/08/2022) [facility] Problem Noted Date Resolved Date Preop testing 10/11/2017 06/26/2018 Overview: Added automatically from request for surgery [id number] Dysphagia 07/09/2017 10/24/2018 Gastric band slippage 07/09/2017 06/26/2018 Difficulty swallowing solids 10/20/201511/2018 Special screening for malignant neoplasms, colon 02/24/2015 10/24/2018 Morbid obesity 12/20/2009 07/27/2021 Gastric ulcer with obstruction 12/20/2009 0 10/24/2018 Leiomyoma of uterus, unspecified 02/11/2009 10/24/2018 Other specified congenital anomaly of skin 07/0201/16/2016 Acute, but ill-defined, cerebrovascular disease 09/19/2017 Unspecified hemorrhoids without mention of compl ication 01/16/2016 Overview: Hemorrhoids documented as of this encounter (statuses as of 02/08/2022) [facility]* Problem Noted Date Resolved Date Preop testing 10/11/2017 06/26/2018 Overview: Added automatically from request for surgery [id number] Dysphagia 07/09/2017 10/24/2018 Gastric band slippage 07/09/2017 06/26/2018 Difficulty swallowing solids 10/20/201511/2018 Special screening for malignant neoplasms, colon 02/24/2015 10/24/2018 Morbid obesity 12/20/2009 07/27/2021 Gastric ulcer with obstruction 12/20/2009 0 10/24/2018 Leiomyoma of uterus, unspecified 02/11/2009 10/24/2018 Other specified congenital anomaly of skin 07/0201/16/2016 Acute, but ill-defined, cerebrovascular disease 09/19/2017 Unspecified hemorrhoids without mention of compl ication 01/16/2016 Overview: Hemorrhoids documented as of this encounter (statuses as of 03/18/2022) [facility] Problem Noted Date Resolved Date Preop testing 10/11/2017 06/26/2018 Overview: Added automatically from request for surgery [id number] Dysphagia 07/09/2017 10/24/2018 Gastric band slippage 07/09/2017 06/26/2018 Difficulty swallowing solids 10/20/201511/2018 Special screening for malignant neoplasms, colon 02/24/2015 10/24/2018 Morbid obesity 12/20/2009 07/27/2021 Gastric ulcer with obstruction 12/20/2009 0 10/24/2018 Leiomyoma of uterus, unspecified 02/11/2009 10/24/2018 Other specified congenital anomaly of skin 07/0201/16/2016 Acute, but ill-defined, cerebrovascular disease 09/19/2017 Unspecified hemorrhoids without mention of compl ication 01/16/2016 Overview: Hemorrhoids documented as of this encounter (statuses as of 03/28/2022) [facility]* Problem Noted Date Resolved Date Preop testing 10/11/2017 06/26/2018 Overview: Added automatically from request for surgery [id number] Dysphagia 07/09/2017 10/24/2018 Gastric band slippage 07/09/2017 06/26/2018 Difficulty swallowing solids 10/20/201511/2018 Special screening for malignant neoplasms, colon 02/24/2015 10/24/2018 Morbid obesity 12/20/2009 07/27/2021 Gastric ulcer with obstruction 12/20/2009 0 10/24/2018 Leiomyoma of uterus, unspecified 02/11/2009 10/24/2018 Other specified congenital anomaly of skin 07/0201/16/2016 Acute, but ill-defined, cerebrovascular disease 09/19/2017 Unspecified hemorrhoids without mention of compl ication 01/16/2016 Overview: Hemorrhoids documented as of this encounter (statuses as of 04/03/2022) [facility]* Problem Noted Date Resolved Date Preop testing 10/11/2017 06/26/2018 Overview: Added automatically from request for surgery [id number] Dysphagia 07/09/2017 10/24/2018 Gastric band slippage 07/09/2017 06/26/2018 Difficulty swallowing solids 10/20/201511/2018 Special screening for malignant neoplasms, colon 02/24/2015 10/24/2018 Morbid obesity 12/20/2009 07/27/2021 Gastric ulcer with obstruction 12/20/2009 0 10/24/2018 Leiomyoma of uterus, unspecified 02/11/2009 10/24/2018 Other specified congenital anomaly of skin 07/0201/16/2016 Acute, but ill-defined, cerebrovascular disease 09/19/2017 Unspecified hemorrhoids without mention of compl ication 01/16/2016 Overview: Hemorrhoids documented as of this encounter (statuses as of 04/18/2022) [facility] Problem Noted Date Resolved Date Preop testing 10/11/2017 06/26/2018 Overview: Added automatically from request for surgery [id number] Dysphagia 07/09/2017 10/24/2018 Gastric band slippage 07/09/2017 06/26/2018 Difficulty swallowing solids 10/20/201511/2018 Special screening for malignant neoplasms, colon 02/24/2015 10/24/2018 Morbid obesity 12/20/2009 07/27/2021 Gastric ulcer with obstruction 12/20/2009 0 10/24/2018 Leiomyoma of uterus, unspecified 02/11/2009 10/24/2018 Other specified congenital anomaly of skin 07/0201/16/2016 Acute, but ill-defined, cerebrovascular disease 09/19/2017 Unspecified hemorrhoids without mention of compl ication 01/16/2016 Overview: Hemorrhoids documented as of this encounter (statuses as of 04/20/2022) [facility]* Problem Noted Date Resolved Date Preop testing 10/11/2017 06/26/2018 Overview: Added automatically from request for surgery [id number] Dysphagia 07/09/2017 10/24/2018 Gastric band slippage 07/09/2017 06/26/2018 Difficulty swallowing solids 10/20/201511/2018 Special screening for malignant neoplasms, colon 02/24/2015 10/24/2018 Morbid obesity 12/20/2009 07/27/2021 Gastric ulcer with obstruction 12/20/2009 0 10/24/2018 Leiomyoma of uterus, unspecified 02/11/2009 10/24/2018 Other specified congenital anomaly of skin 07/0201/16/2016 Acute, but ill-defined, cerebrovascular disease 09/19/2017 Unspecified hemorrhoids without mention of compl ication 01/16/2016 Overview: Hemorrhoids documented as of this encounter (statuses as of 04/24/2022) [facility]* Problem Noted Date Resolved Date Preop testing 10/11/2017 06/26/2018 Overview: Added automatically from request for surgery [id number] Dysphagia 07/09/2017 10/24/2018 Gastric band slippage 07/09/2017 06/26/2018 Difficulty swallowing solids 10/20/201511/2018 Special screening for malignant neoplasms, colon 02/24/2015 10/24/2018 Morbid obesity 12/20/2009 07/27/2021 Gastric ulcer with obstruction 12/20/2009 0 10/24/2018 Leiomyoma of uterus, unspecified 02/11/2009 10/24/2018 Other specified congenital anomaly of skin 07/0201/16/2016 Acute, but ill-defined, cerebrovascular disease 09/19/2017 Unspecified hemorrhoids without mention of compl ication 01/16/2016 Overview: Hemorrhoids documented as of this encounter (statuses as of 04/27/2022) [facility]* Problem Noted Date Resolved Date Preop testing 10/11/2017 06/26/2018 Overview: Added automatically from request for surgery [id number] Dysphagia 07/09/2017 10/24/2018 Gastric band slippage 07/09/2017 06/26/2018 Difficulty swallowing solids 10/20/201511/2018 Special screening for malignant neoplasms, colon 02/24/2015 10/24/2018 Morbid obesity 12/20/2009 07/27/2021 Gastric ulcer with obstruction 12/20/2009 0 10/24/2018 Leiomyoma of uterus, unspecified 02/11/2009 10/24/2018 Other specified congenital anomaly of skin 07/0201/16/2016 Acute, but ill-defined, cerebrovascular disease 09/19/2017 Unspecified hemorrhoids without mention of compl ication 01/16/2016 Overview: Hemorrhoids documented as of this encounter (statuses as of 05/01/2022) [facility]* Problem Noted Date Resolved Date Preop testing 10/11/2017 06/26/2018 Overview: Added automatically from request for surgery [id number] Dysphagia 07/09/2017 10/24/2018 Gastric band slippage 07/09/2017 06/26/2018 Difficulty swallowing solids 10/20/201511/2018 Special screening for malignant neoplasms, colon 02/24/2015 10/24/2018 Morbid obesity 12/20/2009 07/27/2021 Gastric ulcer with obstruction 12/20/2009 0 10/24/2018 Leiomyoma of uterus, unspecified 02/11/2009 10/24/2018 Other specified congenital anomaly of skin 07/0201/16/2016 Acute, but ill-defined, cerebrovascular disease 09/19/2017 Unspecified hemorrhoids without mention of compl ication 01/16/2016 Overview: Hemorrhoids documented as of this encounter (statuses as of 05/31/2022) [facility]* Problem Noted Date Resolved Date Preop testing 10/11/2017 06/26/2018 Overview: Added automatically from request for surgery [id number] Dysphagia 07/09/2017 10/24/2018 Gastric band slippage 07/09/2017 06/26/2018 Difficulty swallowing solids 10/20/201511/2018 Special screening for malignant neoplasms, colon 02/24/2015 10/24/2018 Morbid obesity 12/20/2009 07/27/2021 Gastric ulcer with obstruction 12/20/2009 0 10/24/2018 Leiomyoma of uterus, unspecified 02/11/2009 10/24/2018 Other specified congenital anomaly of skin 07/0201/16/2016 Acute, but ill-defined, cerebrovascular disease 09/19/2017 Unspecified hemorrhoids without mention of compl ication 01/16/2016 Overview: Hemorrhoids documented as of this encounter (statuses as of 06/26/2022) [facility]* Problem Noted Date Resolved Date Preop testing 10/11/2017 06/26/2018 Overview: Added automatically from request for surgery [id number] Dysphagia 07/09/2017 10/24/2018 Gastric band slippage 07/09/2017 06/26/2018 Difficulty swallowing solids 10/20/201511/2018 Special screening for malignant neoplasms, colon 02/24/2015 10/24/2018 Morbid obesity 12/20/2009 07/27/2021 Gastric ulcer with obstruction 12/20/2009 0 10/24/2018 Leiomyoma of uterus, unspecified 02/11/2009 10/24/2018 Other specified congenital anomaly of skin 07/0201/16/2016 Acute, but ill-defined, cerebrovascular disease 09/19/2017 Unspecified hemorrhoids without mention of compl ication 01/16/2016 Overview: Hemorrhoids documented as of this encounter (statuses as of 07/09/2022) [place] [id number] History of Past illness Narrative* Problem Noted Date Resolved Date Preop testing 10/11/2017 06/26/2018 Overview: Added automatically from request for surgery [id number] Dysphagia 07/09/2017 10/24/2018 Gastric band slippage 07/09/2017 06/26/2018 Difficulty swallowing solids 10/20/201511/2018 Special screening for malignant neoplasms, colon 02/24/2015 10/24/2018 Morbid obesity 12/20/2009 07/27/2021 Gastric ulcer with obstruction 12/20/2009 0 10/24/2018 Leiomyoma of uterus, unspecified 02/11/2009 10/24/2018 Other specified congenital anomaly of skin 07/0201/16/2016 Acute, but ill-defined, cerebrovascular disease 09/19/2017 Unspecified hemorrhoids without mention of compl ication 01/16/2016 Overview: Hemorrhoids documented as of this encounter (statuses as of 07/10/2022) [facility]* Problem Noted Date Resolved Date Preop testing 10/11/2017 06/26/2018 Overview: Added automatically from request for surgery [id number] Dysphagia 07/09/2017 10/24/2018 Gastric band slippage 07/09/2017 06/26/2018 Difficulty swallowing solids 10/20/201511/2018 Special screening for malignant neoplasms, colon 02/24/2015 10/24/2018 Morbid obesity 12/20/2009 07/27/2021 Gastric ulcer with obstruction 12/20/2009 0 10/24/2018 Leiomyoma of uterus, unspecified 02/11/2009 10/24/2018 Other specified congenital anomaly of skin 07/0201/16/2016 Acute, but ill-defined, cerebrovascular disease 09/19/2017 Unspecified hemorrhoids without mention of compl ication 01/16/2016 Overview: Hemorrhoids documented as of this encounter (statuses as of 07/27/2022) [facility]* Problem Noted Date Resolved Date Preop testing 10/11/2017 06/26/2018 Overview: Added automatically from request for surgery [id number] Dysphagia 07/09/2017 10/24/2018 Gastric band slippage 07/09/2017 06/26/2018 Difficulty swallowing solids 10/20/201511/2018 Special screening for malignant neoplasms, colon 02/24/2015 10/24/2018 Morbid obesity 12/20/2009 07/27/2021 Gastric ulcer with obstruction 12/20/2009 0 10/24/2018 Leiomyoma of uterus, unspecified 02/11/2009 10/24/2018 Other specified congenital anomaly of skin 07/0201/16/2016 Acute, but ill-defined, cerebrovascular disease 09/19/2017 Unspecified hemorrhoids without mention of compl ication 01/16/2016 Overview: Hemorrhoids documented as of this encounter (statuses as of 08/14/2022) [facility]* Problem Noted Date Resolved Date Preop testing 10/11/2017 06/26/2018 Overview: Added automatically from request for surgery [id number] Dysphagia 07/09/2017 10/24/2018 Gastric band slippage 07/09/2017 06/26/2018 Difficulty swallowing solids 10/20/201511/2018 Special screening for malignant neoplasms, colon 02/24/2015 10/24/2018 Morbid obesity 12/20/2009 07/27/2021 Gastric ulcer with obstruction 12/20/2009 0 10/24/2018 Leiomyoma of uterus, unspecified 02/11/2009 10/24/2018 Other specified congenital anomaly of skin 07/0201/16/2016 Acute, but ill-defined, cerebrovascular disease 09/19/2017 Unspecified hemorrhoids without mention of compl ication 01/16/2016 Overview: Hemorrhoids documented as of this encounter (statuses as of 08/14/2022) [facility]arr[facility]* Problem Noted Date Resolved Date Preop testing 10/11/2017 06/26/2018 Overview: Added automatically from request for surgery [id number] Dysphagia 07/09/2017 10/24/2018 Gastric band slippage 07/09/2017 06/26/2018 Difficulty swallowing solids 10/20/201511/2018 Special screening for malignant neoplasms, colon 02/24/2015 10/24/2018 Morbid obesity 12/20/2009 07/27/2021 Gastric ulcer with obstruction 12/20/2009 0 10/24/2018 Leiomyoma of uterus, unspecified 02/11/2009 10/24/2018 Other specified congenital anomaly of skin 07/0201/16/2016 Acute, but ill-defined, cerebrovascular disease 09/19/2017 Unspecified hemorrhoids without mention of compl ication 01/16/2016 Overview: Hemorrhoids documented as of this encounter (statuses as of 08/15/2022) [facility]* Problem Noted Date Resolved Date Preop testing 10/11/2017 06/26/2018 Overview: Added automatically from request for surgery [id number] Dysphagia 07/09/2017 10/24/2018 Gastric band slippage 07/09/2017 06/26/2018 Difficulty swallowing solids 10/20/201511/2018 Special screening for malignant neoplasms, colon 02/24/2015 10/24/2018 Morbid obesity 12/20/2009 07/27/2021 Gastric ulcer with obstruction 12/20/2009 0 10/24/2018 Leiomyoma of uterus, unspecified 02/11/2009 10/24/2018 Other specified congenital anomaly of skin 07/0201/16/2016 Acute, but ill-defined, cerebrovascular disease 09/19/2017 Unspecified hemorrhoids without mention of compl ication 01/16/2016 Overview: Hemorrhoids documented as of this encounter (statuses as of 08/21/2022) [facility]* Problem Noted Date Resolved Date Preop testing 10/11/2017 06/26/2018 Overview: Added automatically from request for surgery [id number] Dysphagia 07/09/2017 10/24/2018 Gastric band slippage 07/09/2017 06/26/2018 Difficulty swallowing solids 10/20/201511/2018 Special screening for malignant neoplasms, colon 02/24/2015 10/24/2018 Morbid obesity 12/20/2009 07/27/2021 Gastric ulcer with obstruction 12/20/2009 0 10/24/2018 Leiomyoma of uterus, unspecified 02/11/2009 10/24/2018 Other specified congenital anomaly of skin 07/0201/16/2016 Acute, but ill-defined, cerebrovascular disease 09/19/2017 Unspecified hemorrhoids without mention of compl ication 01/16/2016 Overview: Hemorrhoids documented as of this encounter (statuses as of 08/21/2022) [facility]* Problem Noted Date Resolved Date Preop testing 10/11/2017 06/26/2018 Overview: Added automatically from request for surgery [id number] Dysphagia 07/09/2017 10/24/2018 Gastric band slippage 07/09/2017 06/26/2018 Difficulty swallowing solids 10/20/201511/2018 Special screening for malignant neoplasms, colon 02/24/2015 10/24/2018 Morbid obesity 12/20/2009 07/27/2021 Gastric ulcer with obstruction 12/20/2009 0 10/24/2018 Leiomyoma of uterus, unspecified 02/11/2009 10/24/2018 Other specified congenital anomaly of skin 07/0201/16/2016 Acute, but ill-defined, cerebrovascular disease 09/19/2017 Unspecified hemorrhoids without mention of compl ication 01/16/2016 Overview: Hemorrhoids documented as of this encounter (statuses as of 09/12/2022) [facility]* Problem Noted Date Resolved Date Preop testing 10/11/2017 06/26/2018 Overview: Added automatically from request for surgery [id number] Dysphagia 07/09/2017 10/24/2018 Gastric band slippage 07/09/2017 06/26/2018 Difficulty swallowing solids 10/20/201511/2018 Special screening for malignant neoplasms, colon 02/24/2015 10/24/2018 Morbid obesity 12/20/2009 07/27/2021 Gastric ulcer with obstruction 12/20/2009 0 10/24/2018 Leiomyoma of uterus, unspecified 02/11/2009 10/24/2018 Other specified congenital anomaly of skin 07/0201/16/2016 Acute, but ill-defined, cerebrovascular disease 09/19/2017 Unspecified hemorrhoids without mention of compl ication 01/16/2016 Overview: Hemorrhoids documented as of this encounter (statuses as of 09/13/2022) [facility]arr[facility]* Problem Noted Date Resolved Date Preop testing 10/11/2017 06/26/2018 Overview: Added automatically from request for surgery [id number] Dysphagia 07/09/2017 10/24/2018 Gastric band slippage 07/09/2017 06/26/2018 Difficulty swallowing solids 10/20/201511/2018 Special screening for malignant neoplasms, colon 02/24/2015 10/24/2018 Morbid obesity 12/20/2009 07/27/2021 Gastric ulcer with obstruction 12/20/2009 0 10/24/2018 Leiomyoma of uterus, unspecified 02/11/2009 10/24/2018 Other specified congenital anomaly of skin 07/0201/16/2016 Acute, but ill-defined, cerebrovascular disease 09/19/2017 Unspecified hemorrhoids without mention of compl ication 01/16/2016 Overview: Hemorrhoids documented as of this encounter (statuses as of 09/13/2022) [facility]arr[facility]* Problem Noted Date Resolved Date Preop testing 10/11/2017 06/26/2018 Overview: Added automatically from request for surgery [id number] Dysphagia 07/09/2017 10/24/2018 Gastric band slippage 07/09/2017 06/26/2018 Difficulty swallowing solids 10/20/201511/2018 Special screening for malignant neoplasms, colon 02/24/2015 10/24/2018 Morbid obesity 12/20/2009 07/27/2021 Gastric ulcer with obstruction 12/20/2009 0 10/24/2018 Leiomyoma of uterus, unspecified 02/11/2009 10/24/2018 Other specified congenital anomaly of skin 07/0201/16/2016 Acute, but ill-defined, cerebrovascular disease 09/19/2017 Unspecified hemorrhoids without mention of compl ication 01/16/2016 Overview: Hemorrhoids documented as of this encounter (statuses as of 09/13/2022) [facility]* Problem Noted Date Resolved Date Preop testing 10/11/2017 06/26/2018 Overview: Added automatically from request for surgery [id number] Dysphagia 07/09/2017 10/24/2018 Gastric band slippage 07/09/2017 06/26/2018 Difficulty swallowing solids 10/20/201511/2018 Special screening for malignant neoplasms, colon 02/24/2015 10/24/2018 Morbid obesity 12/20/2009 07/27/2021 Gastric ulcer with obstruction 12/20/2009 0 10/24/2018 Leiomyoma of uterus, unspecified 02/11/2009 10/24/2018 Other specified congenital anomaly of skin 07/0201/16/2016 Acute, but ill-defined, cerebrovascular disease 09/19/2017 Unspecified hemorrhoids without mention of compl ication 01/16/2016 Overview: Hemorrhoids documented as of this encounter (statuses as of 09/13/2022) [facility] Narrative* Problem Noted Date Resolved Date Preop testing 10/11/2017 06/26/2018 Overview: Added automatically from request for surgery [id number] Dysphagia 07/09/2017 10/24/2018 Gastric band slippage 07/09/2017 06/26/2018 Difficulty swallowing solids 10/20/201511/2018 Special screening for malignant neoplasms, colon 02/24/2015 10/24/2018 Morbid obesity 12/20/2009 07/27/2021 Gastric ulcer with obstruction 12/20/2009 0 10/24/2018 Leiomyoma of uterus, unspecified 02/11/2009 10/24/2018 Other specified congenital anomaly of skin 07/0201/16/2016 Acute, but ill-defined, cerebrovascular disease 09/19/2017 Unspecified hemorrhoids without mention of compl ication 01/16/2016 Overview: Hemorrhoids documented as of this encounter (statuses as of 09/13/2022) [facility] Past illness Narrative* Problem Noted Date Resolved Date Preop testing 10/11/2017 06/26/2018 Overview: Added automatically from request for surgery [id number] Dysphagia 07/09/2017 10/24/2018 Gastric band slippage 07/09/2017 06/26/2018 Difficulty swallowing solids 10/20/201511/2018 Special screening for malignant neoplasms, colon 02/24/2015 10/24/2018 Morbid obesity 12/20/2009 07/27/2021 Gastric ulcer with obstruction 12/20/2009 0 10/24/2018 Leiomyoma of uterus, unspecified 02/11/2009 10/24/2018 Other specified congenital anomaly of skin 07/0201/16/2016 Acute, but ill-defined, cerebrovascular disease 09/19/2017 Unspecified hemorrhoids without mention of compl ication 01/16/2016 Overview: Hemorrhoids documented as of this encounter (statuses as of 09/21/2022) [facility] Past [facility] Narrative* Problem Noted Date Resolved Date Preop testing 10/11/2017 06/26/2018 Overview: Added automatically from request for surgery [id number] Dysphagia 07/09/2017 10/24/2018 Gastric band slippage 07/09/2017 06/26/2018 Difficulty swallowing solids 10/20/201511/2018 Special screening for malignant neoplasms, colon 02/24/2015 10/24/2018 Morbid obesity 12/20/2009 07/27/2021 Gastric ulcer with obstruction 12/20/2009 0 10/24/2018 Leiomyoma of uterus, unspecified 02/11/2009 10/24/2018 Other specified congenital anomaly of skin 07/0201/16/2016 Acute, but ill-defined, cerebrovascular disease 09/19/2017 Unspecified hemorrhoids without mention of compl ication 01/16/2016 Overview: Hemorrhoids documented as of this encounter (statuses as of 09/24/2022) [facility] Narrative* Problem Noted Date Resolved Date Preop testing 10/11/2017 06/26/2018 Overview: Added automatically from request for surgery [id number] Dysphagia 07/09/2017 10/24/2018 Gastric band slippage 07/09/2017 06/26/2018 Difficulty swallowing solids 10/20/201511/2018 Special screening for malignant neoplasms, colon 02/24/2015 10/24/2018 Morbid obesity 12/20/2009 07/27/2021 Gastric ulcer with obstruction 12/20/2009 0 10/24/2018 Leiomyoma of uterus, unspecified 02/11/2009 10/24/2018 Other specified congenital anomaly of skin 07/0201/16/2016 Acute, but ill-defined, cerebrovascular disease 09/19/2017 Unspecified hemorrhoids without mention of compl ication 01/16/2016 Overview: Hemorrhoids documented as of this encounter (statuses as of 10/22/2022) [facility] Narrative* Problem Noted Date Resolved Date Preop testing 10/11/2017 06/26/2018 Overview: Added automatically from request for surgery [id number] Dysphagia 07/09/2017 10/24/2018 Gastric band slippage 07/09/2017 06/26/2018 Difficulty swallowing solids 10/20/201511/2018 Special screening for malignant neoplasms, colon 02/24/2015 10/24/2018 Morbid obesity 12/20/2009 07/27/2021 Gastric ulcer with obstruction 12/20/2009 0 10/24/2018 Leiomyoma of uterus, unspecified 02/11/2009 10/24/2018 Other specified congenital anomaly of skin 07/0201/16/2016 Acute, but ill-defined, cerebrovascular disease 09/19/2017 Unspecified hemorrhoids without mention of compl ication 01/16/2016 Overview: Hemorrhoids documented as of this encounter (statuses as of 11/14/2022) [facility] Narr[facility]* Problem Noted Date Resolved Date Preop testing 10/11/2017 06/26/2018 Overview: Added automatically from request for surgery [id number] Dysphagia 07/09/2017 10/24/2018 Gastric band slippage 07/09/2017 06/26/2018 Difficulty swallowing solids 10/20/201511/2018 Special screening for malignant neoplasms, colon 02/24/2015 10/24/2018 Morbid obesity 12/20/2009 07/27/2021 Gastric ulcer with obstruction 12/20/2009 0 10/24/2018 Leiomyoma of uterus, unspecified 02/11/2009 10/24/2018 Other specified congenital anomaly of skin 07/0201/16/2016 Acute, but ill-defined, cerebrovascular disease 09/19/2017 Unspecified hemorrhoids without mention of compl ication 01/16/2016 Overview: Hemorrhoids documented as of this encounter (statuses as of 11/15/2022) [facility] Narrative* Problem Noted Date Resolved Date Preop testing 10/11/2017 06/26/2018 Overview: Added automatically from request for surgery [id number] Dysphagia 07/09/2017 10/24/2018 Gastric band slippage 07/09/2017 06/26/2018 Difficulty swallowing solids 10/20/201511/2018 Special screening for malignant neoplasms, colon 02/24/2015 10/24/2018 Morbid obesity 12/20/2009 07/27/2021 Gastric ulcer with obstruction 12/20/2009 0 10/24/2018 Leiomyoma of uterus, unspecified 02/11/2009 10/24/2018 Other specified congenital anomaly of skin 07/0201/16/2016 Acute, but ill-defined, cerebrovascular disease 09/19/2017 Unspecified hemorrhoids without mention of compl ication 01/16/2016 Overview: Hemorrhoids documented as of this encounter (statuses as of 11/15/2022) [facility] Narrative* Problem Noted Date Resolved Date Preop testing 10/11/2017 06/26/2018 Overview: Added automatically from request for surgery [id number] Dysphagia 07/09/2017 10/24/2018 Gastric band slippage 07/09/2017 06/26/2018 Difficulty swallowing solids 10/20/201511/2018 Special screening for malignant neoplasms, colon 02/24/2015 10/24/2018 Morbid obesity 12/20/2009 07/27/2021 Gastric ulcer with obstruction 12/20/2009 0 10/24/2018 Leiomyoma of uterus, unspecified 02/11/2009 10/24/2018 Other specified congenital anomaly of skin 07/0201/16/2016 Acute, but ill-defined, cerebrovascular disease 09/19/2017 Unspecified hemorrhoids without mention of compl ication 01/16/2016 Overview: Hemorrhoids documented as of this encounter (statuses as of 11/21/2022) [facility] N[facility]ative* Problem Noted Date Resolved Date Preop testing 10/11/2017 06/26/2018 Overview: Added automatically from request for surgery [id number] Dysphagia 07/09/2017 10/24/2018 Gastric band slippage 07/09/2017 06/26/2018 Difficulty swallowing solids 10/20/201511/2018 Special screening for malignant neoplasms, colon 02/24/2015 10/24/2018 Morbid obesity 12/20/2009 07/27/2021 Gastric ulcer with obstruction 12/20/2009 0 10/24/2018 Leiomyoma of uterus, unspecified 02/11/2009 10/24/2018 Other specified congenital anomaly of skin 07/0201/16/2016 Acute, but ill-defined, cerebrovascular disease 09/19/2017 Unspecified hemorrhoids without mention of compl ication 01/16/2016 Overview: Hemorrhoids documented as of this encounter (statuses as of 11/26/2022) [facility] Narrative* Problem Noted Date Resolved Date Preop testing 10/11/2017 06/26/2018 Overview: Added automatically from request for surgery [id number] Dysphagia 07/09/2017 10/24/2018 Gastric band slippage 07/09/2017 06/26/2018 Difficulty swallowing solids 10/20/201511/2018 Special screening for malignant neoplasms, colon 02/24/2015 10/24/2018 Morbid obesity 12/20/2009 07/27/2021 Gastric ulcer with obstruction 12/20/2009 0 10/24/2018 Leiomyoma of uterus, unspecified 02/11/2009 10/24/2018 Other specified congenital anomaly of skin 07/0201/16/2016 Acute, but ill-defined, cerebrovascular disease 09/19/2017 Unspecified hemorrhoids without mention of compl ication 01/16/2016 Overview: Hemorrhoids documented as of this encounter (statuses as of 11/28/2022) [facility]* Problem Noted Date Resolved Date Preop testing 10/11/2017 06/26/2018 Overview: Added automatically from request for surgery [id number] Dysphagia 07/09/2017 10/24/2018 Gastric band slippage 07/09/2017 06/26/2018 Difficulty swallowing solids 10/20/201511/2018 Special screening for malignant neoplasms, colon 02/24/2015 10/24/2018 Morbid obesity 12/20/2009 07/27/2021 Gastric ulcer with obstruction 12/20/2009 0 10/24/2018 Leiomyoma of uterus, unspecified 02/11/2009 10/24/2018 Other specified congenital anomaly of skin 07/0201/16/2016 Acute, but ill-defined, cerebrovascular disease 09/19/2017 Unspecified hemorrhoids without mention of compl ication 01/16/2016 Overview: Hemorrhoids documented as of this encounter (statuses as of 11/29/2022) [facility] Narrative* Problem Noted Date Resolved Date Preop testing 10/11/2017 06/26/2018 Overview: Added automatically from request for surgery [id number] Dysphagia 07/09/2017 10/24/2018 Gastric band slippage 07/09/2017 06/26/2018 Difficulty swallowing solids 10/20/201511/2018 Special screening for malignant neoplasms, colon 02/24/2015 10/24/2018 Morbid obesity 12/20/2009 07/27/2021 Gastric ulcer with obstruction 12/20/2009 0 10/24/2018 Leiomyoma of uterus, unspecified 02/11/2009 10/24/2018 Other specified congenital anomaly of skin 07/0201/16/2016 Acute, but ill-defined, cerebrovascular disease 09/19/2017 Unspecified hemorrhoids without mention of compl ication 01/16/2016 Overview: Hemorrhoids documented as of this encounter (statuses as of 12/03/2022) [facility]arr[facility]* Problem Noted Date Resolved Date Preop testing 10/11/2017 06/26/2018 Overview: Added automatically from request for surgery [id number] Dysphagia 07/09/2017 10/24/2018 Gastric band slippage 07/09/2017 06/26/2018 Difficulty swallowing solids 10/20/201511/2018 Special screening for malignant neoplasms, colon 02/24/2015 10/24/2018 Morbid obesity 12/20/2009 07/27/2021 Gastric ulcer with obstruction 12/20/2009 0 10/24/2018 Leiomyoma of uterus, unspecified 02/11/2009 10/24/2018 Other specified congenital anomaly of skin 07/0201/16/2016 Acute, but ill-defined, cerebrovascular disease 09/19/2017 Unspecified hemorrhoids without mention of compl ication 01/16/2016 Overview: Hemorrhoids documented as of this encounter (statuses as of 12/20/2022) [facility] Narrative* Problem Noted Date Resolved Date Preop testing 10/11/2017 06/26/2018 Overview: Added automatically from request for surgery [id number] Dysphagia 07/09/2017 10/24/2018 Gastric band slippage 07/09/2017 06/26/2018 Difficulty swallowing solids 10/20/201511/2018 Special screening for malignant neoplasms, colon 02/24/2015 10/24/2018 Morbid obesity 12/20/2009 07/27/2021 Gastric ulcer with obstruction 12/20/2009 0 10/24/2018 Leiomyoma of uterus, unspecified 02/11/2009 10/24/2018 Other specified congenital anomaly of skin 07/0201/16/2016 Acute, but ill-defined, cerebrovascular disease 09/19/2017 Unspecified hemorrhoids without mention of compl ication 01/16/2016 Overview: Hemorrhoids documented as of this encounter (statuses as of 01/04/2023) [facility] Diagnosis Acute cystitis without hematuria- Primary Acute cystitis Dizziness Dizziness and giddiness Fatigue, unspecified type Hypokalemia Hypopotassemia Opioid use [facility] Diagnosis Lower extremity edema- Primary Edema Venous incompetence Unspecified venous (peripheral) insufficiency [facility] Elevated alkaline phosphatase level Other nonspecific abnormal serum enzyme levels Elevated LFTs Other abnormal blood chemistry [facility] Diagnosis Elevated alkaline phosphatase level- Primary Other nonspecific abnormal serum enzyme levels Elevated LFTs Other abnormal blood chemistry [facility] Diagnosis Gastroesophageal reflux disease, unspecified whether esophagitis present Esophageal dysphagia Dysphagia, pharyngoesophageal phase [facility] Diagnosis Hypokalemia- Primary Hypopotassemia documented in this encounter [facility] note* Diagnosis Elevated LFTs- Primary Other abnormal blood chemistry Elevated alkaline phosphatase level Other nonspecific abnormal serum enzyme levels Screening mammogram for breast cancer documented in this encounter [facility] note* Diagnosis Screening mammogram for breast cancer documented in this encounter [facility] note* Diagnosis Acute UTI- Primary Urinary tract infection, site not specified documented in this encounter [facility] note* Diagnosis Urinary frequency- Primary documented in this encounter [facility] note* Diagnosis Left leg swelling- Primary Swelling of limb Recurrent UTI (urinary tract infection) Urinary tract infection, site not specified Bilateral lower extremity edema Edema Migraine without aura and without status migrainosus, not intractable Migraine without aura, without mention of intractable migraine without mention of status migrainosus Primary insomnia Persistent disorder of initiating or maintaining sleep Hyperparathyroidism (HCC) Hyperparathyroidism, unspecified Hypercalcemia Other osteoporosis, unspecified pathological fracture presence Venous incompetence Unspecified venous (peripheral) insufficiency Chronic bilateral low back pain without sciatica OAB (overactive bladder) Hypertonicity of bladder Vitamin D deficiency Unspecified vitamin D deficiency Left spastic hemiparesis (HCC) Spastic hemiplegia affecting unspecified side documented in this encounter [facility] note* Diagnosis Urinary tract infection without hematuria, site unspecified- Primary Atrophic vaginitis Postmenopausal atrophic vaginitis documented in this encounter [facility] note* Diagnosis Osteoporosis without current pathological fracture, unspecified osteoporosis type [M81.0 (ICD-10-CM)]- Primary Hyperparathyroidism (HCC) Hyperparathyroidism, unspecified documented in this encounter [facility] note* Diagnosis Hyperparathyroidism (HCC)- Primary Hyperparathyroidism, unspecified documented in this encounter [facility] note* Diagnosis Osteopenia, unspecified location documented in this encounter [facility] note* Diagnosis Other osteoporosis, unspecified pathological fracture presence- Primary documented in this encounter [facility] note* Diagnosis Hyperparathyroidism (HCC)- Primary Hyperparathyroidism, unspecified documented in this encounter [facility] note* Diagnosis Skin tear of left lower leg without complication, initial encounter- Primary Bilateral lower extremity edema Edema documented in this encounter [facility] note* Diagnosis Pain in both knees, unspecified chronicity- Primary documented in this encounter [facility] note* Diagnosis Primary hyperparathyroidism (HCC)- Primary Primary hyperparathyroidism documented in this encounter [facility] note* Diagnosis Hyperparathyroidism (HCC) Hyperparathyroidism, unspecified documented in this encounter [facility] note* Diagnosis Primary hyperparathyroidism (HCC)- Primary Primary hyperparathyroidism Hypercalcemia Hyperparathyroidism (HCC) Hyperparathyroidism, unspecified Primary hyperparathyroidism (HCC) Primary hyperparathyroidism documented in this encounter [facility] note* Diagnosis Primary osteoarthritis of right knee- Primary Primary localized osteoarthrosis, lower leg Primary hyperparathyroidism (HCC) Primary hyperparathyroidism documented in this encounter [facility] note* Diagnosis Pre-op evaluation- Primary Preoperative examination, unspecified Obesity, Class III, BMI 40-49.9 (morbid obesity) (HCC) Morbid obesity Cerebrovascular accident (CVA) due to thrombosis of right middle cerebral artery (HCC) Migraine without aura and without status migrainosus, not intractable Migraine without aura, without mention of intractable migraine without mention of status migrainosus Gastroesophageal reflux disease, unspecified whether esophagitis present OAB (overactive bladder) Hypertonicity of bladder Mixed hyperlipidemia Venous incompetence Unspecified venous (peripheral) insufficiency Primary hyperparathyroidism (HCC) Primary hyperparathyroidism documented in this encounter [facility] note* Diagnosis Primary hyperparathyroidism (HCC) Primary hyperparathyroidism Hypercalcemia Primary hyperparathyroidism (HCC) Primary hyperparathyroidism documented in this encounter [facility] note* Diagnosis Hyperparathyroidism (HCC)- Primary Hyperparathyroidism, unspecified Primary hyperparathyroidism (HCC) Primary hyperparathyroidism documented in this encounter [facility] note* Diagnosis Osteopenia, unspecified location- [facility] Diagnosis Mixed hyperlipidemia documented in this encounter [facility]* Diagnosis Screening mammogram for breast cancer- Primary [facility] Diagnosis Screening mammogram for breast cancer documented in this encounter [facility] note* Diagnosis Hyperparathyroidism (HCC)- Primary Hyperparathyroidism, unspecified Osteoporosis without current pathological fracture, unspecified osteoporosis type documented in this encounter [facility] note* Diagnosis Mixed hyperlipidemia- Primary Immunization due Need for prophylactic vaccination and inoculation against unspecified single disease Leg swelling Swelling of limb Hyperparathyroidism (HCC) Hyperparathyroidism, unspecified Migraine without aura and without status migrainosus, not intractable Migraine without aura, without mention of intractable migraine without mention of status migrainosus Gastroesophageal reflux disease, unspecified whether esophagitis present OAB (overactive bladder) Hypertonicity of bladder Obesity, Class III, BMI 40-49.9 (morbid obesity) (HCC) Morbid obesity documented in this encounter [facility] for referral (narrative)* Diagnostic Procedure Only (Routine) - Closed Specialty Diagnoses / Procedures Referred By Antione t Referred To Contact US IMAGING Diagnoses Elevated alkaline phosphatase level Elevated LFTs Procedures US ABD RT UPPER QUADRANT US ABDOMINAL REAL TIME W/IMAGE LIMITED Shorty Teresa MD [address] [place] [address] Us Imaging Referral ID Status Reason Start Date Expiration Date V isits Requested Visits Authorized [id number] Closed Auto-Generated Referral Patient Cleared - INN Insurance Found 02/02/2022 07/21/2022 1 1 [facility] for referral (narrative)* Diagnostic Procedure Only (Routine) - Closed Specialty Diagnoses / Procedures Referred By Antione macias Referred To Contact US IMAGING Diagnoses Elevated alkaline phosphatase level Elevated LFTs Procedures US ABD RT UPPER QUADRANT US ABDOMINAL REAL TIME W/IMAGE LIMITED Shorty Teresa MD [address] [place] [address] Us Imaging Referral ID Status Reason Start Date Expiration Date V isits Requested Visits Authorized [id number] Closed Auto-Generated Referral Patient Cleared - INN Insurance Found 02/02/2022 07/21/2022 1 1 [facility] for referral (narrative)* Diagnostic Procedure Only (Routine) - Closed Specialty Diagnoses / Procedures Referred By Antione t Referred To Contact BR IMAGING Diagnoses Screening mammogram for breast cancer Procedures CRISTINA SCREENING SCREENING MAMMOGRAPHY BI 2-VIEW BREAST INC CAD Shorty Teresa MD [address] [place] [address] [facility] [address] [place] [address] Referral ID Status Reason Start Date Expiration Date V isits Requested Visits Authorized [id number] Closed Auto-Generate d Referral 02/08/2022 03/10/2023 1 1 [facility] for referral (narrative)* Outpatient Procedure (Urgent) - Pending Review Specialty Diagnoses / Procedures Referred By Contac t Referred To [facility] Diagnoses Left leg swelling Procedures US LEG VEIN DVT UNL VAS LAB DUP-SCAN XTR VEINS UNILATERAL/LIMITED STUDY Shorty Teresa MD [address] [place] [address] [facility] [place] [address] [place] [address] Referral ID Status Reason Start Date Expiration Date Visits Requested Visits Authorized [id number] Pending Review Auto-Generat ed Referral 08/13/2022 08/13/2023 1 1 [facility] for referral (narrative)* Diagnostic Procedure Only (Routine) - Pending Review Specialty Diagnoses / Procedures Referred By Contac t Referred To Contact XR IMAGING Diagnoses Pain in both knees, unspecified chronicity Procedures XR KNEE POST OP 3V AP/LAT/MERCHANT BILATERAL RADIOLOGIC EXAMINATION KNEE 3 VIEWS John Desai PA-C [address] [place] [address] Xr Imaging Referral ID Status Reason Start Date Expiration Date Visits Requested Visits Authorized [id number] Pending Review Auto-Generat ed Referral 11/14/2022 12/14/2023 1 1 [facility] for referral (narrative)* Diagnostic Procedure Only (Routine) - Closed Specialty Diagnoses / Procedures Referred By Contact Referred To Contact [facility] Diagnoses Primary hyperparathyroidism (HCC) Hypercalcemia Procedures NM PARATHYROID W SPECT/CT PARATHYROID IMAGING W/TOMOGRAPHIC SPECT & CT Leydi Vance MD [address] [place] [address] [facility] [address] [place] [address] Referral ID Status Reason Start Date Expiration Date V isits Requested Visits Authorized [id number] Closed Auto-Generate d Referral 12/03/2022 01/02/2024 1 1 [facility] for referral (narrative)* Diagnostic Procedure Only (Routine) - Authorized Specialty Diagnoses / Procedures Referred By Rebeccaac t Referred To Contact [facility] Diagnoses Screening mammogram for breast cancer Procedures CRISTINA SCREENING SCREENING MAMMOGRAPHY BI 2-VIEW BREAST INC Shorty Sifuentes MD [address] [place] [address] [facility] [address] [place] [address] Referral ID Status Reason Start Date Expiration Date Visits Requested Visits Authorized [id number] Authorized Auto-Generat ed Referral 04/12/2023 05/11/2024 1 1 [facility] for referral (narrative)* Diagnostic Procedure Only (Routine) - Closed Specialty Diagnoses / Procedures Referred By Antinoe macias Referred To Contact [facility] Diagnoses Screening mammogram for breast cancer Procedures CRISTINA SCREENING SCREENING MAMMOGRAPHY BI 2-VIEW BREAST INC Shorty Sifuentes MD [address] [place] [address] [facility] [address] [address] Referral ID Status Reason Start Date Expiration Date V isits Requested Visits Authorized [id number] Closed Auto-Generate d Referral 04/12/2023 05/11/2024 1 1 [facility] for referral (narrative)* Diagnostic Procedure Only (Routine) - Pending Review Specialty Diagnoses / Procedures Referred By Contac t Referred To Contact XR IMAGING Diagnoses Hyperparathyroidism (HCC) Osteoporosis without current pathological fracture, unspecified osteoporosis type Procedures DXA-FOREARM SKELETON DXA BONE DENSITY STUDY 1/>SITES APPENDICLR Hayden Carlson MD [facility] [place] [address] [place] [address] Referral ID Status Reason Start Date Expiration Date Visits Requested Visits Authorized [id number] Pending Review Auto-Generat ed Referral 09/12/2023 06/27/2024 1 1 [facility] for visit Narrative* Diagnostic Procedure Only (Routine) - Closed Specialty Diagnoses / Procedures Referred By Antione macias Referred To Contact US IMAGING Diagnoses Elevated alkaline phosphatase level Elevated LFTs Procedures US ABD RT UPPER QUADRANT US ABDOMINAL REAL TIME W/IMAGE LIMITED Shorty Teresa MD [address] [place] [address] Us Imaging Referral ID Status Reason Start Date Expiration Date V isits Requested Visits Authorized [id number] Closed Auto-Generated Referral Patient Cleared - INN Insurance Found 02/02/2022 07/21/2022 1 1 [facility] for visit Narrative* Diagnostic Procedure Only (Routine) - Closed Specialty Diagnoses / Procedures Referred By Antione macias Referred To Contact BR IMAGING Diagnoses Screening mammogram for breast cancer Procedures CRISTINA SCREENING SCREENING MAMMOGRAPHY BI 2-VIEW BREAST INC CAD Shorty Teresa MD [address] [place] [address] Br Imaging [address] [place] [address] Referral ID Status Reason Start Date Expiration Date V isits Requested Visits Authorized [id number] Closed Auto-Generate d Referral 02/08/2022 03/10/2023 1 1 [facility] for visit Narrative* Diagnostic Procedure Only (Routine) - Closed Specialty Diagnoses / Procedures Referred By Contact Referred To Contact MOLECULAR & FUNCTIONAL IMAGING Diagnoses Primary hyperparathyroidism (HCC) Hypercalcemia Procedures NM PARATHYROID W SPECT/CT PARATHYROID IMAGING W/TOMOGRAPHIC SPECT & CT Leydi Vance MD [address] [place] [address] Molecular & Functional Imaging [address] [place] [address] Referral ID Status Reason Start Date Expiration Date V isits Requested Visits Authorized [id number] Closed Auto-Generate d Referral 12/03/2022 01/02/2024 1 1 [facility] for visit Narrative* Diagnostic Procedure Only (Routine) - Closed Specialty Diagnoses / Procedures Referred By Contac t Referred To Contact BR IMAGING Diagnoses Screening mammogram for breast cancer Procedures CRISTINA SCREENING SCREENING MAMMOGRAPHY BI 2-VIEW BREAST INC CAD Shorty Teresa MD [address] [place] [address] Br Imaging [address] [place] [address] Referral ID Status Reason Start Date Expiration Date V isits Requested Visits Authorized [id number] Closed Auto-Generate d Referral 04/12/2023 05/11/2024 1 1 [facility] Purpose Family History No Family History Records FoundNo Family History Records FoundNo Family History Records FoundNo Family History Records Found Advance Directives No Advanced Directives Records FoundDocuments on File Type Date Recorded Patient Senior [employer] Advance Directive(s) Advance Directive(s) 10/31/2017 2:52 PM Advance Directive(s) 07/16/2017 2:14 PM Advance Directive(s) 07/16/2017 2:15 PM Advance Directive(s) 07/12/2017 12:38 PM Advance Directive(s) 07/20/2016 12:15 PM Documents on File Type Date Recorded Patient Senior [employer]ation Advance Directive(s) Advance Directive(s) 10/31/2017 2:52 PM Advance Directive(s) 07/16/2017 2:14 PM Advance Directive(s) 07/16/2017 2:15 PM Advance Directive(s) 07/12/2017 12:38 PM Advance Directive(s) 07/20/2016 12:15 PM Documents on File Type Date Recorded Patient Senior [employer] anation Advance Directive(s) 07/16/2017 2:15 PM Documents on File Type Date Recorded Patient Senior [employer] anation Advance Directive(s) 07/16/2017 2:15 PM Reason for Referral Specialty Diagnoses / Procedures Referred By Contac t Referred To Contact Endocrinology Diagnoses Elevated LFTs Elevated alkaline phosphatase level Procedures CONSULT TO ENDOCRINOLOGY OFFICE/OUTPATIENT NEW HIGH MDM 60-74 MINUTES Shorty Teresa MD [address] [place] [address] Referral ID Status Reason Start Date Expiration Date Visits Requested Visits Authorized [id number] Pending Review PCP Requested Referral 04/24/2022 02/08/2023 1 1 Specialty Diagnoses / Procedures Referred By Contac t Referred To Contact BR IMAGING Diagnoses Screening mammogram for breast cancer Procedures CRISTINA SCREENING SCREENING MAMMOGRAPHY BI 2-[place] [address] [place] [address] Br Imaging [address] [place] [address] Referral ID Status Reason Start Date Expiration Date Visits Requested Visits Authorized [id number] Authorized Auto-Generat ed Referral 02/08/2022 03/10/2023 1 1 Specialty Diagnoses / Procedures Referred By Contac t Referred To Contact Shorty Teresa MD [address] [place] [address] Referral ID Status Reason Start Date Expiration Date Visits Re quested Visits Authorized [id number] Closed 1 1 Specialty Diagnoses / Procedures Referred By Contac t Referred To Contact Diagnoses Hyperparathyroidism (HCC) Procedures CONSULT TO ENDOCRINE SURGERY OFFICE/OUTPATIENT NEW [facility] 60-74 MINUTES Hayden Flanagan MD [address] [place] [address] Referral ID Status Reason Start Date Expiration Date Visits Requested Visits Authorized [id number] Pending Review PCP Requested Referral 09/13/2022 09/13/2023 1 1 Specialty Diagnoses / Procedures Referred By Contac t Referred To Contact Diagnoses Primary hyperparathyroidism (HCC) Procedures REFER TO PACC - PRE ANESTHESIA CONSULTATION CLINIC OFFICE/OUTPATIENT NEW [facility] MDM 60-74 MINUTES Leydi Vance MD [address] [place] [address] Referral ID Status Reason Start Date Expiration Date Visits Requested Visits Authorized [id number] Pending Review PCP Requested Referral 12/03/2022 12/03/2023 1 1 Specialty Diagnoses / Procedures Referred By Contact Referred To Contact MOLECULAR & FUNCTIONAL IMAGING Diagnoses Primary hyperparathyroidism (HCC) Hypercalcemia Procedures NM PARATHYROID W SPECT/CT PARATHYROID IMAGING W/TOMOGRAPHIC SPECT & CT Leydi Vance MD [address] [place] [address] Molecular & Functional Imaging [address] [place] [address] Referral ID Status Reason Start Date Expiration Date Visits Requested Visits Authorized [id number] Pending Review Auto-Generat ed Referral 12/03/2022 01/02/2024 1 1 Specialty Diagnoses / Procedures Referred By Contact Referred To Contact [facility] Diagnoses Primary hyperparathyroidism (HCC) Procedures ECG COMPLETE ECG ROUTINE ECG W/LEAST 12 LDS W/I&R Leydi Vance MD [address] [place] [address] [facility] [place] [address] [place] [address] Referral ID Status Reason Start Date Expiration Date Visits Requested Visits Authorized [id number] Pending Review Auto-Generat ed Referral 12/03/2022 12/03/2023 1 1 Medications Administered Section Inactive Administered Medications - up to 3 most recent administrations Medication Order MAR Action Action Date Dose Rate Site zoledronic acid 5 mg PREMIX piggyback (RECLAST) 5 mg, INTRAVENOUS, at 400 mL/hr, Administer over 15 Minutes, ONCE, 1 dose, On Sat09/21/22 at 1100, Contact the prescriber if any of the following are noted: Recent Dental Procedures done (except cleaning only). Low corrected serum calcium levels (less than 7mg/dL). Creatinine clearance less than 35 ml/min. Hazardous Potential Reproductive Risk Drug: Use appropriate PPE. New Bag/Syringe/Bottle 09/21/2022 11:05 AM EST 5 mg 400 mL/hr Inactive Administered Medications - up to 3 most recent administrations Medication Order MAR Action Action Date Dose Rate Site betamethasone acetate-betamethasone sodium phosphate 12 mg injection (CELESTONE) 12 mg, Injection - FOR ORTHO USE ONLY, ONE TIME INJECTION, 1 dose, Starting on Ivelisse 01/03/23 at 1519, Until Ivelisse 01/03/23 at 1519 Given 01/03/2023 3:19 PM EDT 12 mg Knee, Right lidocaine (PF) 10 mg/mL (1 %) 4 mL injection (XYLOCAINE) 4 mL, Injection - FOR ORTHO USE ONLY, ONE TIME INJECTION, 1 dose, Starting on Ivelisse 01/03/23 at 1519, Until Ivelisse 01/03/23 at 1519 Given 01/03/2023 3:19 PM EDT 4 mL Knee, Right Additional Source Comments INFORMATION SOURCE (unrecogn ized section and content) DATE CREATED AUTHOR AUTHOR'S ORGANIZ ATION 01/05/2023 [facility] DATE CREATED AUTHOR AUTHOR'S ORGANIZ ATION [facility] DATE CREATED AUTHOR AUTHOR'S ORGANIZ ATION 07/28/2023 [facility] Source Comments (unrecognize d section and content) In the event this informatio n is protected by the Federal Confidentiality of Alcohol and Drug Abuse Patient Records regulations: The Federal rules restrict any use of the information to criminally investigate or prosecute any alcohol or drug abuse patient.[facility] the event this information is protected by the Federal Confidentiality of Alcohol and Drug Abuse Patient Records regulations: The Federal rules restrict any use of the information to criminally investigate or prosecute any alcohol or drug abuse patient.[facility] the event this information is protected by the Federal Confidentiality of Alcohol and Drug Abuse Patient Records regulations: The Federal rules restrict any use of the information to criminally investigate or prosecute any alcohol or drug abuse patient.[facility] the event this information is protected by the Federal Confidentiality of Alcohol and Drug Abuse Patient Records regulations: The Federal rules restrict any use of the information to criminally investigate or prosecute any alcohol or drug abuse patient.[facility] the event this information is protected by the Federal Confidentiality of Alcohol and Drug Abuse Patient Records regulations: The Federal rules restrict any use of the information to criminally investigate or prosecute any alcohol or drug abuse patient.[facility]In the event this information is protected by the Federal Confidentiality of Alcohol and Drug Abuse Patient Records regulations: The Federal rules restrict any use of the information to criminally investigate or prosecute any alcohol or drug abuse patient.[facility] the event this information is protected by the Federal Confidentiality of Alcohol and Drug Abuse Patient Records regulations: The Federal rules restrict any use of the information to criminally investigate or prosecute any alcohol or drug abuse patient.[facility] the event this information is protected by the Federal Confidentiality of Alcohol and Drug Abuse Patient Records regulations: The Federal rules restrict any use of the information to criminally investigate or prosecute any alcohol or drug abuse patient.[facility] the event this information is protected by the Federal Confidentiality of Alcohol and Drug Abuse Patient Records regulations: The Federal rules restrict any use of the information to criminally investigate or prosecute any alcohol or drug abuse patient.[facility] the event this information is protected by the Federal Confidentiality of Alcohol and Drug Abuse Patient Records regulations: The Federal rules restrict any use of the information to criminally investigate or prosecute any alcohol or drug abuse patient.[facility] HospitalIn the event this information is protected by the Federal Confidentiality of Alcohol and Drug Abuse Patient Records regulations: The Federal rules restrict any use of the information to criminally investigate or prosecute any alcohol or drug abuse patient.[facility] HospitalIn the event this information is protected by the Federal Confidentiality of Alcohol and Drug Abuse Patient Records regulations: The Federal rules restrict any use of the information to criminally investigate or prosecute any alcohol or drug abuse patient.[facility]In the event this information is protected by the Federal Confidentiality of Alcohol and Drug Abuse Patient Records regulations: The Federal rules restrict any use of the information to criminally investigate or prosecute any alcohol or drug abuse patient.[facility] HospitalIn the event this information is protected by the Federal Confidentiality of Alcohol and Drug Abuse Patient Records regulations: The Federal rules restrict any use of the information to criminally investigate or prosecute any alcohol or drug abuse patient.[facility] HospitalIn the event this information is protected by the Federal Confidentiality of Alcohol and Drug Abuse Patient Records regulations: The Federal rules restrict any use of the information to criminally investigate or prosecute any alcohol or drug abuse patient.[facility] HospitalIn the event this information is protected by the Federal Confidentiality of Alcohol and Drug Abuse Patient Records regulations: The Federal rules restrict any use of the information to criminally investigate or prosecute any alcohol or drug abuse patient.[facility] HospitalIn the event this information is protected by the Federal Confidentiality of Alcohol and Drug Abuse Patient Records regulations: The Federal rules restrict any use of the information to criminally investigate or prosecute any alcohol or drug abuse patient.[facility] HospitalIn the event this information is protected by the Federal Confidentiality of Alcohol and Drug Abuse Patient Records regulations: The Federal rules restrict any use of the information to criminally investigate or prosecute any alcohol or drug abuse patient.[facility] HospitalIn the event this information is protected by the Federal Confidentiality of Alcohol and Drug Abuse Patient Records regulations: The Federal rules restrict any use of the information to criminally investigate or prosecute any alcohol or drug abuse patient.[facility] HospitalIn the event this information is protected by the Federal Confidentiality of Alcohol and Drug Abuse Patient Records regulations: The Federal rules restrict any use of the information to criminally investigate or prosecute any alcohol or drug abuse patient.[facility] HospitalIn the event this information is protected by the Federal Confidentiality of Alcohol and Drug Abuse Patient Records regulations: The Federal rules restrict any use of the information to criminally investigate or prosecute any alcohol or drug abuse patient.[facility] HospitalIn the event this information is protected by the Federal Confidentiality of Alcohol and Drug Abuse Patient Records regulations: The Federal rules restrict any use of the information to criminally investigate or prosecute any alcohol or drug abuse patient.[facility] HospitalIn the event this information is protected by the Federal Confidentiality of Alcohol and Drug Abuse Patient Records regulations: The Federal rules restrict any use of the information to criminally investigate or prosecute any alcohol or drug abuse patient.[facility] HospitalIn the event this information is protected by the Federal Confidentiality of Alcohol and Drug Abuse Patient Records regulations: The Federal rules restrict any use of the information to criminally investigate or prosecute any alcohol or drug abuse patient.[facility] HospitalIn the event this information is protected by the Federal Confidentiality of Alcohol and Drug Abuse Patient Records regulations: The Federal rules restrict any use of the information to criminally investigate or prosecute any alcohol or drug abuse patient.[facility] HospitalIn the event this information is protected by the Federal Confidentiality of Alcohol and Drug Abuse Patient Records regulations: The Federal rules restrict any use of the information to criminally investigate or prosecute any alcohol or drug abuse patient.[facility] HospitalIn the event this information is protected by the Federal Confidentiality of Alcohol and Drug Abuse Patient Records regulations: The Federal rules restrict any use of the information to criminally investigate or prosecute any alcohol or drug abuse patient.[facility] the event this information is protected by the Federal Confidentiality of Alcohol and Drug Abuse Patient Records regulations: The Federal rules restrict any use of the information to criminally investigate or prosecute any alcohol or drug abuse patient.[facility] HospitalIn the event this information is protected by the Federal Confidentiality of Alcohol and Drug Abuse Patient Records regulations: The Federal rules restrict any use of the information to criminally investigate or prosecute any alcohol or drug abuse patient.[facility] HospitalIn the event this information is protected by the Federal Confidentiality of Alcohol and Drug Abuse Patient Records regulations: The Federal rules restrict any use of the information to criminally investigate or prosecute any alcohol or drug abuse patient.[facility] HospitalIn the event this information is protected by the Federal Confidentiality of Alcohol and Drug Abuse Patient Records regulations: The Federal rules restrict any use of the information to criminally investigate or prosecute any alcohol or drug abuse patient.[facility] HospitalIn the event this information is protected by the Federal Confidentiality of Alcohol and Drug Abuse Patient Records regulations: The Federal rules restrict any use of the information to criminally investigate or prosecute any alcohol or drug abuse patient.[facility] HospitalIn the event this information is protected by the Federal Confidentiality of Alcohol and Drug Abuse Patient Records regulations: The Federal rules restrict any use of the information to criminally investigate or prosecute any alcohol or drug abuse patient.[facility] HospitalIn the event this information is protected by the Federal Confidentiality of Alcohol and Drug Abuse Patient Records regulations: The Federal rules restrict any use of the information to criminally investigate or prosecute any alcohol or drug abuse patient.[facility] HospitalIn the event this information is protected by the Federal Confidentiality of Alcohol and Drug Abuse Patient Records regulations: The Federal rules restrict any use of the information to criminally investigate or prosecute any alcohol or drug abuse patient.[facility] HospitalIn the event this information is protected by the Federal Confidentiality of Alcohol and Drug Abuse Patient Records regulations: The Federal rules restrict any use of the information to criminally investigate or prosecute any alcohol or drug abuse patient.[facility] HospitalIn the event this information is protected by the Federal Confidentiality of Alcohol and Drug Abuse Patient Records regulations: The Federal rules restrict any use of the information to criminally investigate or prosecute any alcohol or drug abuse patient.[facility] HospitalIn the event this information is protected by the Federal Confidentiality of Alcohol and Drug Abuse Patient Records regulations: The Federal rules restrict any use of the information to criminally investigate or prosecute any alcohol or drug abuse patient.[facility] HospitalIn the event this information is protected by the Federal Confidentiality of Alcohol and Drug Abuse Patient Records regulations: The Federal rules restrict any use of the information to criminally investigate or prosecute any alcohol or drug abuse patient.[facility] HospitalIn the event this information is protected by the Federal Confidentiality of Alcohol and Drug Abuse Patient Records regulations: The Federal rules restrict any use of the information to criminally investigate or prosecute any alcohol or drug abuse patient.[facility] HospitalIn the event this information is protected by the Federal Confidentiality of Alcohol and Drug Abuse Patient Records regulations: The Federal rules restrict any use of the information to criminally investigate or prosecute any alcohol or drug abuse patient.[facility] HospitalIn the event this information is protected by the Federal Confidentiality of Alcohol and Drug Abuse Patient Records regulations: The Federal rules restrict any use of the information to criminally investigate or prosecute any alcohol or drug abuse patient.[facility] HospitalIn the event this information is protected by the Federal Confidentiality of Alcohol and Drug Abuse Patient Records regulations: The Federal rules restrict any use of the information to criminally investigate or prosecute any alcohol or drug abuse patient.[facility] HospitalIn the event this information is protected by the Federal Confidentiality of Alcohol and Drug Abuse Patient Records regulations: The Federal rules restrict any use of the information to criminally investigate or prosecute any alcohol or drug abuse patient.[facility] HospitalIn the event this information is protected by the Federal Confidentiality of Alcohol and Drug Abuse Patient Records regulations: The Federal rules restrict any use of the information to criminally investigate or prosecute any alcohol or drug abuse patient.[facility] HospitalIn the event this information is protected by the Federal Confidentiality of Alcohol and Drug Abuse Patient Records regulations: The Federal rules restrict any use of the information to criminally investigate or prosecute any alcohol or drug abuse patient.[facility] HospitalIn the event this information is protected by the Federal Confidentiality of Alcohol and Drug Abuse Patient Records regulations: The Federal rules restrict any use of the information to criminally investigate or prosecute any alcohol or drug abuse patient.[facility] HospitalIn the event this information is protected by the Federal Confidentiality of Alcohol and Drug Abuse Patient Records regulations: The Federal rules restrict any use of the information to criminally investigate or prosecute any alcohol or drug abuse patient.[facility] HospitalIn the event this information is protected by the Federal Confidentiality of Alcohol and Drug Abuse Patient Records regulations: The Federal rules restrict any use of the information to criminally investigate or prosecute any alcohol or drug abuse patient.[facility] HospitalIn the event this information is protected by the Federal Confidentiality of Alcohol and Drug Abuse Patient Records regulations: The Federal rules restrict any use of the information to criminally investigate or prosecute any alcohol or drug abuse patient.[facility] HospitalIn the event this information is protected by the Federal Confidentiality of Alcohol and Drug Abuse Patient Records regulations: The Federal rules restrict any use of the information to criminally investigate or prosecute any alcohol or drug abuse patient.[facility] HospitalIn the event this information is protected by the Federal Confidentiality of Alcohol and Drug Abuse Patient Records regulations: The Federal rules restrict any use of the information to criminally investigate or prosecute any alcohol or drug abuse patient.[facility] HospitalIn the event this information is protected by the Federal Confidentiality of Alcohol and Drug Abuse Patient Records regulations: The Federal rules restrict any use of the information to criminally investigate or prosecute any alcohol or drug abuse patient.[facility] HospitalIn the event this information is protected by the Federal Confidentiality of Alcohol and Drug Abuse Patient Records regulations: The Federal rules restrict any use of the information to criminally investigate or prosecute any alcohol or drug abuse patient.[facility] HospitalIn the event this information is protected by the Federal Confidentiality of Alcohol and Drug Abuse Patient Records regulations: The Federal rules restrict any use of the information to criminally investigate or prosecute any alcohol or drug abuse patient.[facility] Reason for Visit (unrecogniz ed section and content) Specialty Diagnoses / Procedures Referred By Antione macias Referred To Contact Family Practice / FAMILY MEDICINE Diagnoses Open Celulitis blister/Possible UTI Procedures 4C EST Self Arnold Mcconnell MD [address] [place] [address] Referral ID Status Reason Start Date Expiration Date V isits Requested Visits Authorized [id number] Closed Financial Clearance Required - [employer] Payor Patient Cleared INN/[facility] Payor Auth Obtained 09/27/2021 07/21/2022 1 1 Reason Comments Prescription Refills Reason Comments Orders compression stocking s Reason Comments Patient Question Reason Comments Results Appointment Reason Onset Date Comments Refill Request 03/16/2022 Reason Onset Date Comments Refill Request 03/27/2022 Reason Comments Patient Question Medication not on me d list, please refill Reason Onset Date Comments Refill Request 04/18/2022 Reason Comments Results Reason Comments Results Reason Comments Viral Syndrome Reason Onset Date Comments Refill Request 06/25/2022 Reason Comments UTI Urgency of urination , burning x3 days Reason Comments Refill Request Reason Comments Urinary Frequency Frequency, urgency a nd burning x 1 day Reason Comments Follow Up 6 month Reason Comments Results Impregnator Helper - Other Orders Reason Comments Consult UTI Reason Comments Follow Up Reason Comments Referral Request Thyroid Surgeon Reason Comments orders for medication infusion Reason Comments Non-Chemotherapy Treatment Specialty Diagnoses / Procedures Referred By Contac t Referred To Contact Diagnoses Other osteoporosis, unspecified pathological fracture presence Procedures INJECTION, ZOLEDRONIC ACID, 1 MG Hayden Flanagan MD [address] [place] [address] [facility] [address] [place] [address] Referral ID Status Reason Start Date Expiration Date V isits Requested Visits Authorized [id number] Authorized 09/13/2022 09/14/2023 1 1 Reason Onset Date Comments Refill Request 09/21/2022 Reason Comments Follow Up 1 week on left leg Reason Comments Patient Update Reason Comments Release Of Medical Records Reason Comments Appointment Reason Comments Thyroid Problem Specialty Diagnoses / Procedures Referred By Contac t Referred To Contact Diagnoses Hyperparathyroidism (HCC) Procedures CONSULT TO ENDOCRINE SURGERY OFFICE/OUTPATIENT NEW HIGH MDM 60-74 MINUTES Hayden Flanagan MD [address] [place] [address] Referral ID Status Reason Start Date Expiration Date V isits Requested Visits Authorized [id number] Closed PCP Requested Referral 09/13/2022 09/13/2023 1 1 Reason Comments preop pacc / OR MM 02/08/23 Parathyroide ctomy Reason Onset Date Comments Refill Request 12/19/2022 Reason Comments New Knee Pain Reason Comments Anesthesia Consult Reason Comments Mammogram Order Reason Comments Follow Up Reason Comments Follow Up 4 month follow up Care Teams (unrecognized sec tion and content) Staff Nuclear Weapons Officer Relationship Specialty Start Date End Date Shorty Teresa MD [address] [place], [place] [id number] PCP - General Family Practice 03/27/17 Staff Nuclear Weapons Officer Relationship Specialty Start Date End Date Shorty Teresa MD [address] [place], [place] [id number] PCP - General Family Practice 03/27/17 Staff Nuclear Weapons Officer Relationship Specialty Start Date End Date Shorty Teresa MD [address] [facility] [place] [place] [address] PCP - General Family Practice 03/27/17 Staff Nuclear Weapons Officer Relationship Specialty Start Date End Date Shorty Teresa MD [address] [facility] [place] [place] [address] PCP - General Family Practice 03/27/17 Staff Nuclear Weapons Officer Relationship Specialty Start Date End Date Shorty Teresa MD [address] [facility] [place] [place] [address] PCP - General Family Practice 03/27/17 Staff Nuclear Weapons Officer Relationship Specialty Start Date End Date Shorty Teresa MD [address] [facility] [place] [place] [address] PCP - General Family Practice 03/27/17 Staff Nuclear Weapons Officer Relationship Specialty Start Date End Date Shorty Teresa MD [address] [facility] [place] [place] [address] PCP - General Family Practice 03/27/17 Staff Nuclear Weapons Officer Relationship Specialty Start Date End Date Shorty Teresa MD [address] [facility] [place] [place] [address] PCP - General Family Medicine 03/27/17 Staff Nuclear Weapons Officer Relationship Specialty Start Date End Date Shorty Teresa MD [address] [facility] [place] [place] [address] PCP - General Family Medicine 03/27/17 Staff Nuclear Weapons Officer Relationship Specialty Start Date End Date Shorty Teresa MD [address] [facility] [place] [place] [address] PCP - General Family Medicine 03/27/17 Staff Nuclear Weapons Officer Relationship Specialty Start Date End Date Shorty Teresa MD [address] [facility] [place] [place] [address] PCP - General Family Medicine 03/27/17 Staff Nuclear Weapons Officer Relationship Specialty Start Date End Date Shorty Teresa MD [address] [facility] [place] [place] [address] PCP - General Family Medicine 03/27/17 Staff Nuclear Weapons Officer Relationship Specialty Start Date End Date Shorty Teresa MD [address] [facility] [place] [place] [address] PCP - General Family Medicine 03/27/17 Staff Nuclear Weapons Officer Relationship Specialty Start Date End Date Shorty Teresa MD [address] [facility] [place] [place] [address] PCP - General Family Medicine 03/27/17 Staff Nuclear Weapons Officer Relationship Specialty Start Date End Date Shorty Teresa MD [address] [facility] [place] [place] [address] PCP - General Family Medicine 03/27/17 Staff Nuclear Weapons Officer Relationship Specialty Start Date End Date Shorty Teresa MD [address] [facility] [place] [place] [address] PCP - General Family Medicine 03/27/17 Staff Nuclear Weapons Officer Relationship Specialty Start Date End Date Shorty Teresa MD [address] [facility] [place] [place] [address] PCP - General Family Medicine 03/27/17 Staff Nuclear Weapons Officer Relationship Specialty Start Date End Date Shorty Teresa MD [address] [facility] [place] [place] [address] PCP - General Family Medicine 03/27/17 Staff Nuclear Weapons Officer Relationship Specialty Start Date End Date Shorty Teresa MD [address] [facility] [place] [place] [address] PCP - General Family Medicine 03/27/17 Staff Nuclear Weapons Officer Relationship Specialty Start Date End Date Shorty Teresa MD [address] [facility] [place] [place] [address] PCP - General Family Medicine 03/27/17 Staff Nuclear Weapons Officer Relationship Specialty Start Date End Date Shorty Teresa MD [address] [facility] [place] [place] [address] PCP - General Family Medicine 03/27/17 Staff Nuclear Weapons Officer Relationship Specialty Start Date End Date Shorty Teresa MD [address] [facility] [place] [place] [address] PCP - General Family Medicine 03/27/17 Staff Nuclear Weapons Officer Relationship Specialty Start Date End Date Shorty Teresa MD [address] [facility] [place] [place] [address] PCP - General Family Medicine 03/27/17 Staff Nuclear Weapons Officer Relationship Specialty Start Date End Date Shorty Teresa MD [address] [place] [address] PCP - General Family Medicine 03/27/17 Staff Nuclear Weapons Officer Relationship Specialty Start Date End Date Shorty Teresa MD [address] [place] [address] PCP - General Family Medicine 03/27/17 Staff Nuclear Weapons Officer Relationship Specialty Start Date End Date Shorty Teresa MD [address] [place] [address] PCP - General Family Medicine 03/27/17 Staff Nuclear Weapons Officer Relationship Specialty Start Date End Date Shorty Teresa MD [address] [facility] [place] [place] [address] PCP - General Family Medicine 03/27/17 Staff Nuclear Weapons Officer Relationship Specialty Start Date End Date Shorty Teresa MD [address] [facility] [place] [place] [address] PCP - General Family Medicine 03/27/17 Staff Nuclear Weapons Officer Relationship Specialty Start Date End Date Shorty Teresa MD [address] [place] [address] PCP - General Family Medicine 03/27/17 Staff Nuclear Weapons Officer Relationship Specialty Start Date End Date Shorty Teresa MD [address] [place] [address] PCP - General Family Medicine 03/27/17 Staff Nuclear Weapons Officer Relationship Specialty Start Date End Date Shorty Teresa MD [address] [place] [address] PCP - General Family Medicine 03/27/17 Staff Nuclear Weapons Officer Relationship Specialty Start Date End Date Shorty Teresa MD [address] [place] [address] PCP - General Family Medicine 03/27/17 Staff Nuclear Weapons Officer Relationship Specialty Start Date End Date Shorty Teresa MD [address] [place] [address] PCP - General Family Medicine 03/27/17 Staff Nuclear Weapons Officer Relationship Specialty Start Date End Date Shorty Teresa MD [address] [place] [address] PCP - General Family Medicine 03/27/17 Staff Nuclear Weapons Officer Relationship Specialty Start Date End Date Shorty Teresa MD [address] [place] [address] PCP - General Family Medicine 03/27/17 Staff Nuclear Weapons Officer Relationship Specialty Start Date End Date Shorty Teresa MD [address] [place] [address] PCP - General Family Medicine 03/27/17 Staff Nuclear Weapons Officer Relationship Specialty Start Date End Date Shorty Teresa MD [address] [place], [place] [address] PCP - General Family Medicine 03/27/17 Staff Nuclear Weapons Officer Relationship Specialty Start Date End Date Shorty Teresa MD [address] [place], [place] [address] PCP - General Family Medicine 03/27/17 Staff Nuclear Weapons Officer Relationship Specialty Start Date End Date Shorty Teresa MD [address] [place], [place] [id number] PCP - General Family Medicine 03/27/17 FOR RECORDS PERTAINING TO PATIENTS WHO ARE OR HAVE BEEN ENROLLED IN A CHEMICAL DEPENDENCY/SUBSTANCEABUSE PROGRAM, SOME INFORMATION MAY BE OMITTED. This clinical summary was aggregated from multiple sources. Caution should be exercised in using it in the provision of clinical care. This summary normalizes information from multiple sources, and as a consequence, information in this document may materially change the coding, format and clinical context of patient data. In addition, data may be omitted in some cases. CLINICAL DECISIONS SHOULD BE BASED ON THE PRIMARY CLINICAL RECORDS. [facility]. provides no warranty or guarantee of the accuracy or completeness of information in this document.
[2023-07-28] MEDS: 0.9% Normal Saline (1000mL) 1,000 ML 1000 ML IV (19:54)
[2023-07-28 19:58] LABS: Absolute Lymphocyte Count 1.76 X10^3/uL (0.83-4.51); Absolute Neutrophil Count 7.7 X10^3/uL (2.0-7.7); Basophil# 0.03 X10^3/uL; Basophil% 0.3 % (0-1); Eosinophil# 0.14 X10^3/uL; Eosinophils% 1.3 % (0-5); Hematocrit 38.6 % (37-47); Hemoglobin 12.4 g/dL (12.0-15.0); Lymphocyte # 1.76 X10^3/ul (0.83-4.51); Lymphocyte % 16.8 % (19-41); Mean Corp Hgb Conc 32.1 g/dL (32-36); Mean Corpuscular Hgb 28.8 pg (27.0-32.0); Mean Corpuscular Volume 89.8 fL (81-99); Mean Platelet Vol. 9.1 fl (6.2-12.0); Monocyte# 0.79 X10^3/uL; Monocyte% 7.5 % (0-10); NRBC Flagged by Analyzer 0 % (0-5); Neutrophil # 7.72 X10^3/uL (2.7-7.7); Neutrophil % 73.7 % (47-70); Platelet Count 254 K/mm3 (150-450); RBC Distribution Width CV 12.8 % (11.6-14.6); White Blood Count 10.5 K/mm3 (4.4-11.0)
--- NOTE | 2023-07-28 20:00 | RAD_ITS ---
STUDY: X-RAY CHEST REASON FOR EXAM: Female, 73 years old. weakness TECHNIQUE: Single AP portable view of the chest. COMPARISON: 05/22/2019 FINDINGS: The lungs are clear and expanded. There is no demonstrated pleural abnormality. Normal size heart. Normal mediastinum and [place]. Normal visualized pulmonary arteries. Normal visualized aortic arch and descending thoracic aorta. Normal visualized thoracic spine. Normal visualized ribs, clavicles, and shoulders. There is no demonstrated abnormality of the visualized soft tissue structures of the upper abdomen. RAD/Chest 1 View (Portable) IMPRESSION: Normal x-ray examination of the chest. Electronically Signed: Richard Johns MD at 20:19 EST ,
[2023-07-28 20:23] LABS: ALB/GLOB Ratio 0.8 RATIO (0.9-2.4); AST(SGOT) 16 U/L (15-37); Alanine Aminotransfer ALT/SGPT 23 U/L (13-56); Albumin, Serum 2.9 g/dL (3.2-5.0); Alkaline Phosphatase 117 U/L (45-117); Anion Gap 4 (5-15); BUN 8 mg/dL (7-18); BUN/Creat Ratio 12.3 RATIO (10-20); CPK Total, Creatine Kinase 238 U/L (26-192); Chloride 106 mmol/L (98-107); Creatinine, Serum 0.65 mg/dL (0.55-1.02); EST Glomerular Filtration Rate 94 mL/min (>60); Est Glom Filt Rate - Afr Amer 114 mL/min (>60); Globulin 3.6 g/dL (2.2-4.2); Glucose 123 mg/dL (74-106); Protein, Total 6.5 g/dL (6.4-8.2); Sodium Level 140 mmol/L (136-145); Troponin-I HS 12 pg/mL (3.0-54.0)
[2023-07-28] MEDS: Potassium Chloride Oral Tablet 20 MEQ 40 MEQ PO (20:48)
[2023-07-28 21:06] VITALS: BMI 40.1
[2023-07-28 21:09] VITALS: BP 165/88; PULSE 95; RESP 23; O2SAT 93
[2023-07-28 21:10] LABS: Bacteria 0 SEEN /hpf (None Seen); Mucous, Urine 0 SEEN /hpf (<or=2+); Red Blood Cells-Urine 0 SEEN /hpf (0-5); Squamous Epithelial Cells - UA 0 SEEN /hpf (5-10)
[2023-07-28 21:32] LABS: Color, Urine Yellow (Yellow); Glucose, Dipstick Normal (Normal); Ketone-Dipstick Negative (Negative); Leukocyte Esterase-Dipstick 25 /ul (Negative); Nitrite-Dipstick Negative (Negative); Occult Blood-Urine 25 /ul (Negative); Protein-Dipstick 30 mg/dl (Negative); Urine Bilirubin Dipstick Negative (Negative); Urine Clarity Clear (Clear); Urine Urobilinogen Normal (Normal)
[2023-07-28 21:42] LABS: White Blood Cells 0-5 SEEN /hpf (0-5)
--- NOTE | 2023-07-28 21:49 | PCM.HP.STD ---
[facility] - General General Date of Admission: 07/28/23 Date of Service: 07/28/23 Chief Complaint: Generalized Weakness and Loose Stools. [facility] Narrative AMINATA LEE, is a 73 F with a past medical history of essential hypertension, hyperlipidemia, morbid obesity; with BMI of 40.1 this admission, history of cancer, history of Clostridium difficile colitis, history of CVA, history of migraine headaches, history of LLE wound, chronic LE lymphedema, depression, osteoporosis, GERD; on omeprazole and famotidine, history of cholecystectomy, OA; with Chronic Pain, history of multiple falls due to chronic generalized weakness with ambulatory dysfunction and recent history of community acquired pneumonia diagnosed by her PCP (with negative COVID-19, RSV and Influenza); treated with Augmentin and Z-pack last week who presents to [facility] ER complaining of generalized weakness and loose stools. Ms. Lee reports her symptoms began approximately one week prior to admission with her generalized weakness getting progressively worse - and she has a deaf roommate who cannot hear her if she needs help because she lives downstairs. Now she claims she is unable to ambulate or get around her home to do ADL's and on top of all this she is failing to recover and improve from her most recent respiratory illness. She then developed loose stools x 2 this AM - but she took Imodium and this improved. She also called EMS around 3:00 AM because she could not even get herself off the commode and was there for ~3 hours. She also admits to increasing LLE redness she thought was from her heating blanket but she denies an open wound or abscess. She denies associated fever, chills, nausea or vomiting but she does have a history of C. difficile colitis - but she states this did not feel or smell like C. difficile infection. In the ER she was diagnosed with suspected diarrhea likely due to recurrent C. difficile colitis complicated by LLE cellulitis and hypokalemia of 3 mmol/L present on admission with generalized weakness and ambulatory dysfunction that have now caused her not to be able to live independently and she was then admitted to the general medical floor for a stay that is expected to be greater than 48 hours. [facility], [facility] Medical History Cancer Chronic pain Debility History of stroke Lymphedema Migraines Non-smoker Osteoporosis Stroke/cerebrovascular accident Venous insufficiency Venous insufficiency of both lower extremities Wound of left leg Wound of left lower extremity Home Medications diltiazem HCl 300 mg capsule,extended release 24 hr 300 mg PO DAILY prevents migraines 04/09/15 [History Last Taken 02/28/21 08:00] gabapentin 300 mg capsule 300 mg PO DAILY nerve pain 04/09/15 [History Last Taken 02/28/21 08:00] docusate sodium 100 mg capsule (DOK) 100 mg PO DAILY constipation 02/09/17 [History Last Taken 02/28/21 08:00] furosemide 20 mg tablet 40 mg PO DAILY water retention 02/09/17 [History Last Taken 02/28/21 08:00] multivitamin (Daily Multiple tablet) 1 ea PO DAILY supplement 02/09/17 [History Last Taken 02/28/21 08:00] cholecalciferol (vitamin D3) 50 mcg (2,000 unit) capsule (Vitamin D3) 2,000 unit PO DAILY supplement 03/19/18 [History Last Taken 02/28/21 08:00] potassium chloride 20 mEq tablet,extended release(part/cryst) (Klor-Con M) 10 meq PO DAILY supplement 03/19/18 [History Last Taken 02/27/21 20:00] oxybutynin chloride 5 mg tablet 2.5 mg PO BID urinary issues 11/25/18 [History Last Taken 02/28/21 08:00] hydrocodone-acetaminophen 5-325mg 5mg-325mg 2 tab PO QHS 08/17/19 [History Last Taken 02/28/21 08:00] amitriptyline 75 mg tablet 75 mg PO QHS migraine prevention 05/02/20 [History Last Taken 02/27/21 20:00] atorvastatin 10 mg tablet 10 mg PO QHS cholesterol 02/28/21 [History Last Taken 02/27/21 20:00] hydrocortisone 2.5 % topical cream 1 applic topical BID PRN Hemorrhoids 03/01/21 [History Last Taken 02/28/21 19:30] omeprazole 40 mg capsule,delayed release 40 mg PO DAILY 12/02/21 [History Last Taken Unknown] calcium carbonate 500 mg-vitamin D3 10 mcg (400 unit) tablet (Oyster Shell Calcium-Vitamin D3) 1 tab PO BID 07/28/23 [History Last Taken Unknown] famotidine 20 mg tablet 20 mg PO QHS 07/28/23 [History Last Taken Unknown] hydrocodone-acetaminophen 5-325mg 5mg-325mg 1 tab PO DAILY PRN pain 07/28/23 [History Last Taken Unknown] tolterodine 4 mg capsule,extended release 24 hr 4 mg PO DAILY 07/28/23 [History Last Taken Unknown] Allergy/AdvReac Type Severity Reaction Status Date / Time hydrochlorothiazide Allergy increases Verified 12/02/21 17:57 calcium metronidazole [From Flagyl] Allergy Diarrhea Verified 12/02/21 17:57 triamterene AdvReac increases Verified 12/02/21 17:57 calcium Surgical History History of cholecystectomy Social History Smoking Status: Never smoker ROS ROS Narrative Review of systems: General: Patient admits to chills and generalized weakness but denies fever. HENT: Denies headache, denies stuffy nose, denies sore throat EYES: Denies changes in vision or discharge from eyes. Resp: Denies cough, denies shortness of breath Cardiac: Patient admits to lower extremity edema especially on the left but she denies chest pain or palpitations. GI: Patient admits to diarrhea but denies abdominal pain, nausea or vomiting. : Denies changes in urination, dysuria or hematuria. Extremity: Patient admits to left lower extremity redness and swelling worse than usual which she had attributed to her heating blanket. Musculoskeletal: Feels somewhat generally weak and unwell Neuro: Patient denies headache, dizziness or focal neurologic deficits. Heme: Patient denies easy bleeding or easy bruisability. Skin: Patient admits to increased redness of her left lower extremity. Psychiatric: No complaints voiced related to uncontrolled depression or anxiety. Endocrine: No polyuria, polydipsia or polyphagia. Allergic: Patient denies lip swelling, tongue swelling or urticaria. The rest of the 14 point ROS was negative except for positives in HPI. Vital Signs Vital Signs Vital Signs: 07/28/23 19:06 07/28/23 19:22 07/28/23 19:34 Temperature 98.2 F Temperature Source Temporal Pulse Rate 98 96 Respiratory Rate 16 20 H Respiratory Effort Normal Non-Labored Respiratory Depth Respiratory Pattern Blood Pressure 146/78 H 152/73 H Blood Pressure Mean 100 99 Pulse Ox 94 91 Oxygen Delivery Method Room Air Room Air 07/28/23 19:36 07/28/23 21:09 Temperature Temperature Source Pulse Rate 95 Respiratory Rate 23 H Respiratory Effort Non-Labored Respiratory Depth Normal Respiratory Pattern Normal Blood Pressure 165/88 H Blood Pressure Mean 113 Pulse Ox 93 Oxygen Delivery Method Room Air Weight Weight: 205 lb 7.533 oz Body Mass Index (BMI) 40.1 Physical Exam Const alert, oriented x3 and no apparent distress Constitutional Narrative: Patient is morbidly obese but very pleasant. General Appearance: cooperative HEENT normocephalic, head/scalp atraumatic, hearing grossly normal bilaterally, moist oral mucous membranes and oropharynx normal Eyes PERRL and EOMs intact bilaterally Neck no lymphadenopathy and supple Resp normal respiratory effort, no retractions, no use of accessory muscles and clear to auscultation bilaterally Cardio regular rate and regular rhythm GI normal to inspection, nondistended, normoactive bowel sounds, soft to palpation, non-tender and non-distended GI Narrative: Morbidly obese. Extremity Extremity Narrative: Patient has significant left lower extremity swelling and erythema compared to the right without obvious wound or acute signs of trauma. Skin Skin Narrative: Patient has significant left lower extremity swelling and erythema compared to the right without obvious wound or acute signs of trauma. Neuro oriented x3, CN's II-XII intact bilaterally, moves all extremities and no focal motor deficits Sensorium / Orientation: awake, alert, oriented to person, oriented to place and oriented to time Speech: speech normal Motor Exam: strength 5/5 throughout Psych affect normal Results Medical Records Data Attestation: I reviewed the patient's medical records Lab / Micro Data Attestation: I reviewed the patient's lab results. 07/28/23 19:50 07/28/23 19:50 Labs: Laboratory Results - last 24 hr 07/28/23 19:50: WBC 10.5, RBC 4.30, Hgb 12.4, Hct 38.6, MCV 89.8, MCH 28.8, MCHC 32.1, RDW Std Deviation 42.0, RDW Coeff of Adriana 12.8, Plt Count 254, MPV 9.1, Immature Gran % (Auto) 0.400, Neut % (Auto) 73.7 H, Lymph % (Auto) 16.8 L, [place] % (Auto) 7.5, Eos % (Auto) 1.3, Baso % (Auto) 0.3, Absolute Neuts (auto) 7.7, Absolute Lymphs (auto) 1.76, Nucleated RBC % 0, Sodium 140, Potassium 3.0 L, Chloride 106, Carbon Dioxide 30.0, Anion Gap 4 L, BUN 8, Creatinine 0.65, Est GFR (MDRD) Af Amer 114, Est GFR (MDRD) Non-Af 94, BUN/Creatinine Ratio 12.3, Glucose 123 H, Calcium 9.0, Total Bilirubin 0.30, AST 16, ALT 23, Alkaline Phosphatase 117, Total Creatine Kinase 238 H, Troponin I High Sens 12, Total Protein 6.5, Albumin 2.9 L, Globulin 3.6, Albumin/Globulin Ratio 0.8 L 07/28/23 21:05: Urine Color Yellow, Urine Clarity Clear, Urine pH 6.0, Ur Specific Colon 1.010, Urine Protein 30 H, Urine Glucose (UA) Normal, Urine Ketones Negative, Urine Occult Blood 25 H, Urine Nitrite Negative, Urine Bilirubin Negative, Urine Urobilinogen Normal, Ur Leukocyte Esterase 25 H, Urine RBC 0 SEEN, Urine WBC 0-5 SEEN, Ur Squamous Epith Cells 0 SEEN, Urine Bacteria 0 SEEN, Urine Mucus 0 SEEN Imagaing Radiology Impression Chest X-Ray 07/28/23 20:00 IMPRESSION: Normal x-ray examination of the chest. Electronically Signed: Richard Johns MD at 20:19 EST , Assessment & Plan Assessment/Plan (1) Diarrhea: QUALIFIERS: Diarrhea type: presumed infectious Qualified Code(s): R19.7 - Diarrhea, unspecified (2) Hypokalemia: (3) Cellulitis: QUALIFIERS: Laterality: left Site of cellulitis: extremity Site of cellulitis of extremity: lower extremity Qualified Code(s): L03.116 - Cellulitis of left lower limb (4) Generalized weakness: PLAN: Plan 1. Acute diarrhea with a known history of Clostridium difficile colitis - Admit to general medical floor under observation status with enteric precautions. Check stool studies and start empiric IV Flagyl. Volume resuscitate and give Tylenol prn for [id number] (level 1-5/10) pain or fever. Finally, we will check CT scan of the abdomen and pelvis without contrast to evaluate for potential signs of colitis. 2. Hypokalemia of 3 mmol/L present on admission due to #1 - Give supplemental KCl and then recheck BMP in the AM for improvement. 3. Suspected Left lower extremity cellulitis in the setting of chronic LLE lymphedema with chronic venous stasis complicating #1 & #2 - Start IV Vancomycin to cover Gram-positives including possible MRSA as any other antibiotic choice would potentially exacerbate #1. 4. Recently diagnosed community acquired pneumonia - Noted with CXR's improved with treatment. 5. Generalized weakness and ambulatory dysfunction with frequent falls that have now caused her not to be able to live independently arising from #1 - #4 - Hold statin in case of potential myotoxicity and monitor for improvement. PT/OT and case management to consult and treat with help appreciated in advance. Ideally, she would like to go home with [facility] and home PT if possible. 6. Morbid obesity; with BMI of 40.1 this admission adding to pathology of #1 - #5 - Weight loss will be recommended. Check TSH. 7. OA; with Chronic Pain - Give Tylenol prn [id number] level 1-5/10 pain or fever. Give previously prescribed Hydrocodone prn for severe level 6-10/10 pain. 8. Essential hypertension - Continue home medications plus give prn IV Hydralazine for systolic blood pressure > 160 mm Hg. 9. Hyperlipidemia - Hold statin in case myotoxicity is contributing to #5. If she significantly improves while this agent is held consider treating with an alternative agent. 9. History of cancer - Noted. 10. History of CVA - Stable. 11. History of migraine headaches - Continue current regimen. 12. Depression - Resume home medications as previous. 13. Osteoporosis - Stable. 14. DVT prophylaxis - Lovenox 40 mg sq BID plus SCD's. Total time: Approximately 55 minutes. Charges/Coding Visit Charges Inpatient E&M: 27120 Init Hosp L2
--- OUTSIDE RECORDS SUMMARY | 2023-07-28 22:02 | XMS RPT_ITS | CCD ---
Author Name Unknown Address [address] [place] [address] Organization [facility] Care Team Providers Care Shank Sander Name Role Phone Shorty Teresa MD Primary [...] Translations: [METRONIDAZOLE] Drug Allergy 7 GI Upset [facility] (6 sources) Thiazides; Translations: [THIAZIDES] Drug Intolerance 6 Other: See Comments [facility] (20 sources) Thiazides Drug Intolerance 6 Other: See Comments [facility] Medications Current Medications Medication Drug Class(es) Dates [...] 92.99 kg Kassandra Sharma APRN.CNP Work Phone: [facility] 06-19-2023 13:42-0500 Diastolic blood pressure 80 mm[Hg] Kassandra Sharma APRN.CNP Work Phone: [facility] 06-19-2023 13:42-0500 Heart rate 90 /min Kassandra Sharma APRN.CNP Work Phone: [facility] 06-19-2023 13:42-0500 Respiratory rate 18 /min Kassandra Podlogar GRAVEL INSPECTOR.GREEN PLUMBER Work Phone: [facility] 06-19-2023 13:42-0500 SaO2% (BldA) [Mass fraction] 91 % Kassandra Podlogar GRAVEL INSPECTOR.GREEN PLUMBER Work Phone: [facility] 06-19-2023 13:42-0500 Systolic blood pressure 136 mm[Hg] Kassandra Podlogar GRAVEL INSPECTOR.GREEN PLUMBER Work Phone: [facility] 05-29-2023 16:09-0500 Body height 152.4 cm Hayden Flanagan MD Work Phone: [facility] 05-29-2023 16:09-0500 Body weight 94.6 kg Hayden Flanagan MD Work Phone: [facility] 05-29-2023 16:09-0500 Diastolic blood pressure 75 mm[Hg] Hayden Flanagan MD Work Phone: [facility] 05-29-2023 16:09-0500 Heart rate 95 /min Hayden Flanagan MD Work Phone: [facility] 05-29-2023 16:09-0500 SaO2% (BldA) [Mass fraction] 96 % Hayden Flanagan MD Work Phone: [facility] 05-29-2023 16:09-0500 Systolic blood pressure 135 mm[Hg] Hayden Flanagan MD Work Phone: [facility] 01-31-2023 10:40-0400 SaO2% (BldA) [Mass fraction] 97 % Pacc 2 Work Phone: [facility] 01-31-2023 09:43-0400 Body height 152.4 cm Pacc 2 Work Phone: [facility] 01-31-2023 09:43-0400 Body temperature 97.59 [degF] Pacc 2 Work Phone: [facility] 01-31-2023 09:43-0400 Body weight 94.44 kg Pacc 2 Work Phone: [facility] 01-31-2023 09:43-0400 Diastolic blood pressure 69 mm[Hg] Pacc 2 Work Phone: [facility] 01-31-2023 09:43-0400 Heart rate 81 /min Pacc 2 Work Phone: [facility] 01-31-2023 09:43-0400 Respiratory rate 17 /min Pacc 2 Work Phone: [facility] 01-31-2023 09:43-0400 Systolic blood pressure 142 mm[Hg] Pacc 2 Work Phone: [facility] 11-26-2022 13:34-0400 Diastolic blood pressure 65 mm[Hg] Leydi Vance MD Work Phone: [facility] 11-26-2022 13:34-0400 Heart rate 81 /min Leydi Vance MD Work Phone: [facility] 11-26-2022 13:34-0400 Systolic blood pressure 125 mm[Hg] Leydi Vance MD Work Phone: [facility] 11-13-2022 14:02-0400 Diastolic blood pressure 72 mm[Hg] Shorty Teresa MD Work Phone: [facility] 11-13-2022 14:02-0400 Heart rate 88 /min Shorty Teresa MD Work Phone: [facility] 11-13-2022 14:02-0400 Respiratory rate 16 /min Shorty Teresa MD Work Phone: [facility] 11-13-2022 14:02-0400 SaO2% (BldA) [Mass fraction] 96 % Shorty Teresa MD Work Phone: [facility] 11-13-2022 14:02-0400 Systolic blood pressure 138 mm[Hg] Shorty Teresa MD Work Phone: [facility] 09-12-2022 16:15-0500 Body height 152.4 cm Hayden Flanagan MD Work Phone: [facility] 09-12-2022 16:15-0500 Body weight 92.44 kg Hayden Flanagan MD Work Phone: [facility] 09-12-2022 16:15-0500 Diastolic blood pressure 75 mm[Hg] Hayden Flanagan MD Work Phone: [facility] 09-12-2022 16:15-0500 Heart rate 87 /min Hayden Flanagan MD Work Phone: [facility] 09-12-2022 16:15-0500 SaO2% (BldA) [Mass fraction] 97 % Hayden Flanagan MD Work Phone: [facility] 09-12-2022 16:15-0500 Systolic blood pressure 135 mm[Hg] Hayden Flanagan MD Work Phone: [facility] 08-17-2022 15:34-0500 Body height 152.4 cm Blayne Roldan PA-C Work Phone: [facility] 08-17-2022 15:34-0500 Body temperature 97.59 [degF] Blayne Roldan PA-C Work Phone: [facility] 08-17-2022 15:34-0500 Body weight 89.36 kg Blayne Roldan PA-C Work Phone: [facility] 08-17-2022 15:34-0500 Diastolic blood pressure 68 mm[Hg] Blayne Roldan PA-C Work Phone: [facility] 08-17-2022 15:34-0500 Heart rate 104 /min Blayne Roldan PA-C Work Phone: [facility] 08-17-2022 15:34-0500 Respiratory rate 16 /min Blayne Roldan PA-C Work Phone: [facility] 08-17-2022 15:34-0500 SaO2% (BldA) [Mass fraction] 97 % Blayne Roldan PA-C Work Phone: [facility] 08-17-2022 15:34-0500 Systolic blood pressure 144 mm[Hg] Blayne Roldan PA-C Work Phone: [facility] 08-13-2022 16:03-0500 Diastolic blood pressure 78 mm[Hg] Shorty Teresa MD Work Phone: [facility] 08-13-2022 16:03-0500 Systolic blood pressure 138 mm[Hg] Shorty Teresa MD Work Phone: [facility] 08-13-2022 15:16-0500 Body weight 89.45 kg Shorty Teresa MD Work Phone: [facility] 08-13-2022 15:16-0500 Heart rate 91 /min Shorty Teresa MD Work Phone: [facility] 08-13-2022 15:16-0500 Respiratory rate 18 /min Shorty Teresa MD Work Phone: [facility] 08-13-2022 15:16-0500 SaO2% (BldA) [Mass fraction] 97 % Shorty Teresa MD Work Phone: [facility] 07-26-2022 18:35-0500 Body temperature 98.01 [degF] Donnell Braden MD Work Phone: [facility] 07-26-2022 18:35-0500 Body weight 84.37 kg Donnell Braden MD Work Phone: [facility] 07-26-2022 18:35-0500 Diastolic blood pressure 84 mm[Hg] Donnell Braden MD Work Phone: [facility] 07-26-2022 18:35-0500 Heart rate 62 /min Donnell Braden MD Work Phone: [facility] 07-26-2022 18:35-0500 Respiratory rate 18 /min Donnell Braden MD Work Phone: [facility] 07-26-2022 18:35-0500 SaO2% (BldA) [Mass fraction] 95 % Donnell Braden MD Work Phone: [facility] 07-26-2022 18:35-0500 Systolic blood pressure 138 mm[Hg] Donnell Braden MD Work Phone: [facility] 07-09-2022 18:01-0500 Body temperature 97.81 [degF] Elly Athy PA-C Work Phone: [facility] 07-09-2022 18:01-0500 Body weight 84.37 kg Elly Athy PA-C Work Phone: [facility] 07-09-2022 18:01-0500 Diastolic blood pressure 86 mm[Hg] Elly Athy PA-C Work Phone: [facility] 07-09-2022 18:01-0500 Heart rate 89 /min Elly Athy PA-C Work Phone: [facility] 07-09-2022 18:01-0500 Respiratory rate 20 /min Elly Athy PA-C Work Phone: [facility] 07-09-2022 18:01-0500 SaO2% (BldA) [Mass fraction] 95 % Elly Athy PA-C Work Phone: [facility] 07-09-2022 18:01-0500 Systolic blood pressure 158 mm[Hg] Elly Athy PA-C Work Phone: [facility] 12-05-2021 19:23-0400 Body weight 83.83 kg Shorty Teresa MD Work Phone: [facility] 12-05-2021 19:23-0400 Diastolic blood pressure 58 mm[Hg] Shorty Teresa MD Work Phone: [facility] 12-05-2021 19:23-0400 Heart rate 80 /min Shorty Teresa MD Work Phone: [facility] 12-05-2021 19:23-0400 Respiratory rate 18 /min Shorty Treesa MD Work Phone: [facility] 12-05-2021 19:23-0400 SaO2% (BldA) [Mass fraction] 96 % Shorty Teresa MD Work Phone: [facility] 12-05-2021 19:23-0400 Systolic blood pressure 110 mm[Hg] Shorty Teresa MD Work Phone: [facility] Encounters Encounter Date Encounter Type Care Provider Facility Start: 07-23-2023 End: 07-24-2023 ambulatory SHORTY TERESA Facility:[facility] Start: 06-19-2023 End: 06-20-2023 ambulatory SHORTY TERESA Facility:[facility] Start: 06-19-2023 End: 06-19-2023 Patient encounter procedure Kassandra Podlogthomas GRAVEL INSPECTOR.GREEN PLUMBER Work Phone: [facility] Procedures Date Procedure Procedure Detail Performing Clinician Start: 06-19-2023 [employer] COVI D-19 VACCINE (2022- [place]) AGE 12+ YR Kassandra Reidlogthomas GRAVEL INSPECTOR.GREEN PLUMBER Work Phone: Start: 05-29-2023 INFLUENZA VACCINE, P [...] et rgnt auto w/o microscopy Keesha Glasgowgs GRAVEL INSPECTOR.GREEN PLUMBER Work Phone: Start: 07-09-2022 Urnls dip stick/tabl et rgnt auto w/o microscopy Ericka James GRAVEL INSPECTOR.GREEN PLUMBER Work Phone: Start: 04-26-2022 Mammography Mammograph y [...] - S prince or Plasma Lipid Screening [facility] Start: 01-31-2027 LIPID SCREEN LIPID SCREEN [facility] Start: 10-09-2026 Urine microalbumin profile [facility] Start: 01-31-2026 DIABETES SCREEN DIABETES SCREEN [facility] Start: 01-31-2026 Diabetes Screening Diabetes Screenin g [facility] Start: 09-21-2025 DIABETES SCREEN DIABETES SCREEN [facility] Start: 09-05-2025 DIABETES SCREEN DIABETES SCREEN [facility] Start: 08-13-2025 DIABETES SCREEN DIABETES SCREEN [facility] Start: 04-12-2025 DIABETES SCREEN DIABETES SCREEN [facility] Start: 02-24-2025 Colonoscopy COLONOSCOPY [facility] Start: 02-24-2025 COLORECTAL CANCER SCREENING COLORECTAL CANCER SCREENING [facility] Start: 01-31-2025 DIABETES SCREEN DIABETES SCREEN [facility] Start: 09-11-2024 DIABETES SCREEN DIABETES SCREEN [facility] Start: 08-27-2024 LIPID SCREEN LIPID SCREEN [facility] Start: 02-13-2024 SHINGRIX VACCINE (1 of 2) VEGA GRIX VACCINE (1 of 2) [facility] Immunizations Immunization Date Immunization Notes Care Provider Feliciano chin 06-19-2023 COVID-19 vaccine, ag e 12+ yr, season (PFIZER-BIONTECH) Kassandra Sharma APRN.GREEN PLUMBER Work Phone: [facility] 05-29-2023 influenza (HD-IIV4) vaccine, age 65+ yr, high dose, quadrivalent, PF (FLUZONE HIGH-DOSE) Hayden Flanagan MD Work Phone: [facility] 02-12-2023 COVID-19 vaccine, ag e 12+ yr, bivalent (PFIZER-BIONTECH) Leydi Vance MD Work Phone: [facility] 05-10-2022 influenza (HD-IIV4) vaccine, age 65+ yr, high dose, quadrivalent, PF (FLUZONE HIGH-DOSE) Shorty Teresa MD Work Phone: [facility] 05-10-2022 influenza virus vaccine, unspecified formulation Shorty Teresa MD Work Phone: [facility] 04-19-2021 influenza, high-dose , quadrivalent vaccine (FLUZONE HIGH DOSE QUADRIVALENT) Shorty Teresa MD Work Phone: [facility] 05-12-2020 influenza, high-dose , quadrivalent vaccine (FLUZONE HIGH DOSE QUADRIVALENT) Shorty Teresa MD Work Phone: [facility] 07-02-2019 influenza, high dose seasonal, preservative-free Shorty Teresa MD Work Phone: [facility] 04-23-2018 influenza, seasonal, injectable, preservative free Shorty Teresa MD Work Phone: [facility] Work Phone: 03-26-2018 influenza, high dose seasonal, preservative-free Shorty Teresa MD Work Phone: [facility] 03-30-2017 influenza, high dose seasonal, preservative-free Shorty Teresa MD Work Phone: [facility] 10-09-2016 tetanus toxoid, redu donna diphtheria toxoid, and acellular pertussis vaccine, adsorbed Shorty Teresa MD Work Phone: [facility] 05-08-2016 pneumococcal polysaccharide vaccine, 23 valent Shorty Teresa MD Work Phone: [facility] 04-13-2016 influenza, high dose seasonal, preservative-free Shorty Teresa MD Work Phone: [facility] 04-22-2015 influenza, high dose seasonal, preservative-free Shorty Teresa MD Work Phone: [facility] 09-07-2014 pneumococcal conjuga te vaccine, 13 valent Shorty Teresa MD Work Phone: [facility] 04-22-2010 pneumococcal polysaccharide vaccine, 23 valent Shorty Teresa MD Work Phone: [facility] 08-05-2006 TD(adult) unspecifie d formulation Shorty Teresa MD Work Phone: [facility] 08-05-2006 tetanus and diphther ia toxoids, adsorbed, preservative free, for adult use (2 Lf of tetanus toxoid and 2 Lf of diphtheria toxoid) Shorty Teresa MD Work Phone: [facility] 07-18-1998 diphtheria and tetan us toxoids, adsorbed for pediatric use Shorty Teresa MD Work Phone: [facility] Work Phone: Payers Date Payer Category Payer Medicaid UHC MEDICAID [facility]C ARE [facility] MEDICAID [id number] 2019-Present [phone] [address] [place] [address] Medicaid [id number] 2019 Medicaid UHC MEDICAID MYC ARE [facility] MEDICAID [id number] 2019-Present [phone] [address] [place] [address] Medicaid [id number] 2019 Medicaid [id number] 2017 Medicare [facility] MEDICARE [facility] DUAL COMPLETE HMO SNP [id number] 2017-Present [phone] [address] [place] [address] Medicare [id number] 2017 Medicare [id number] 2017 Unknown [id number] Social History Date Type Detail Facility Start: 02-07-2012 Tobacco smoking stat [facility] Never smoked tobacco [facility] Start: 12-05-2021 End: 06-19-2023 Alcohol intake Current non-drinker of alcohol (finding) [facility] Start: 1950 Sex Assigned At Not on file [facility] Start: 11-24-2021 End: 04-26-2022 Exposure to SARS-CoV-2 (event) Not sure [facility] Work Phone: Start: 02-07-2012 Tobacco use and exposure Smokeless tobacco non-user [facility] Start: 11-26-2022 End: 01-31-2023 History of Social function [facility] Work Phone: Start: 11-26-2022 End: 01-31-2023 Tobacco use panel [facility] Work Phone: Adult Depression Screening Assessment 0 [facility] Work Phone: Medical Equipment Procedure Code Equipment Code Equipment Origin al Text Equipment Identifier Dates Reymundo Bn Smpx P Ra dpq Fd Strl - [id number] Start: 03-17-2014 Bassam-C Ale G ast W/Disect - [id number] Start: 04-21-2010 Clinical Notes 10-11-2017 to 07-23-2023 Kassandra Sharma, GRAVEL INSPECTOR.GREEN PLUMBER - 06/19/2023 1:48 PM ESTPatient Hayden Jenkins MD - 05/29/2023 4:11 PM ESTLetter - Coordinator, Mammography - 05/17/2023 11:15 AM EDT Note Date & Type Note Facility 07-23-2023 Note HNO ID: [id number] Author: Pastora Bell RT(R) Service: Radiology Author [...] RT Debbi(R) July 23, 2023 7:16 PM [facility] 07-23-2023 Note HNO ID: [id number] Author: Shorty Teresa MD Service: ? Author [...] DEVICE 04/21/2010 Performed by THI ALCOCER at [facility] LAPS RPR PARAESPHGL HRNA INCL FUNDPLSTY W/O MESH 04/21/2010 Performed by THI ALCOCER at [facility] MAL LESION FACE,EAR,EYEL 1.1-2CM 01/28/06 Left cheek and right forearm lesions PAST SURGICAL HISTORY OF July 06, 2009 Hysteroscopy DANNE PAST SURGICAL HISTORY OF 10/2017 vaginal vault suspension PAST SURGICAL HISTORY OF 10/2017 Lap band removed UNLIS LAPAROSCOPIC PROCEDURE LIVER 04/21/2010 Performed by THI ALCOCER at [facility] Family History FAMILY HISTORY Problem Relation Age [...] once daily. HYDROcodone-a (more content not included)... [facility] 06-19-2023 Note HNO ID: [id number] Author: Kassandra Sharma APRN.LENA Service: ? Author [...] bladder infection SCC (squamous cell carcinoma) Stroke ([facility]) 12/06/1981 cva left side residual, young at [...] every 6 hours as needed for pain. wmcefgx-fqqqzybad-rwssker D3 500 mg-5 mcg (200 unit) per [...] AND Units 01/31/2023 (more content not included)... [facility] 06-19-2023 History of Present illness Narrative 06/19/2023 [...] every 6 hours as needed for pain. bertzdh-aojeburpk-xkasced D3 500 mg-5 mcg (200 unit) per [...] Abs Lymph 1.00 - 4.00 k/uL 1.99 [place]% % 8.0 Abs [place] <0.87 k/uL 0.57 [place]% % 4.2 Abs [...] due - ICD9: V05.9, ICD10: Z23 - [employer] COVID-19 VACCINE (2022- [place]ASON) AGE 12+ YR [...] calories and exercise as well. Kassandra Sharma APRN.GREEN PLUMBER Prescription instructions reviewed with patient as applicable. [...] which included preparing to see the patient, qvcz-xo-jsgr patient care, completing clinical documentation, obtaining and/or reviewing separately obtained history, performing a medically appropriate examination, counseling and educating the patient/family/caregiver, and ordering medications, tests, or procedures. documented in this encounter [facility] 05-29-2023 Note HNO ID: [id number] Author: Hayden Flanagan MD Service: ? Author [...] bladder infection SCC (squamous cell carcinoma) Stroke ([facility]) 12/06/1981 cva left side residual, young at [...] DEVICE 04/21/2010 Performed by THI ALCOCER at [facility] LAPS RPR PARAESPHGL HRNA INCL FUNDPLSTY W/O MESH 04/21/2010 Performed by THI ALCOCER at [facility] MAL LESION FACE,EAR,EYEL 1.1-2CM 01/28/06 Left cheek and right forearm lesions PAST SURGICAL HISTORY OF July 06, 2009 Hysteroscopy [facility] PAST SURGICAL HISTORY OF 10/2017 vaginal vault suspension PAST SURGICAL HIST (more content not included)... [facility] 05-29-2023 Instructions Hayden Flanagan MD - 05/29/2023 4:26 PM EST - Continue the current calcium and vitamin D intake - Blood tests in July as planned - Repeat bone density scan on or after 09/12/2023 - I will see you in October 2023 and will decide on the Reclast infusion documented in this encounter [facility] 05-29-2023 History of Present illness Narrative ENDOCRINOLOGY [...] site back GERD (gastroesophageal reflux disease) Hyperparathyroidism ([facility]) s/p parathyroidectomy 02/08/2023 Insomnia Knee pain, chronic Lumbago Migraine without aura on diltiazem Obesity, unspecified stated BMI 40.5 HT: 61.5 WT: 220 Osteopenia of multiple sites Overactive bladder Personal history of unspecified urinary disorder years ago since last bladder infection SCC (squamous cell carcinoma) Stroke ([facility]) 12/06/1981 cva left side residual, young at [...] DEVICE 04/21/2010 Performed by THI ALCOCER at [facility] LAPS RPR PARAESPHGL HRNA INCL FUNDPLSTY W/O MESH 04/21/2010 Performed by THI ALCOCER at [facility] MAL LESION FACE,EAR,EYEL 1.1-2CM 01/28/06 Left cheek and right forearm lesions PAST SURGICAL HISTORY OF July 06, 2009 Hysteroscopy D&C PAST SURGICAL HISTORY OF 10/2017 vaginal vault suspension PAST SURGICAL HISTORY OF 10/2017 Lap band removed UNLIS LAPAROSCOPIC PROCEDURE LIVER 04/21/2010 Performed by THI ALCOCER at [facility] Medications Current Outpatient Medications Medication Sig gabapentin [...] needed (mouth or hand numbness or tingling). bqrmqux-cfgvhixwu-pzmtzlt D3 500 mg-5 mcg (200 unit) per [...] Hayden Flanagan MD documented in this encounter [facility] 05-28-2023 Note HNO ID: [id number] Author: Arnol Jonas MD Service: ? Author Type: Physician Type: Progress Notes Filed: 05/28/2023 4:33 PM Note Text: Janay is here for Durolane injection in the right knee. History and physical exam unchanged. Large Joint Arthro/Inj: R knee joint Informed Consent Consent Obtained: Verbal [place] Protocol A moment to CARE was completed. [...] which included preparing to see the patient, uqjd-dt-mlbd patient care, completing clinical documentation, obtaining and/or reviewing separately obtained history, performing a medically appropriate examination, counseling and educating the patient/family/caregiver. Arnol Jonas MD Orthopaedic Surgery [facility] 05-17-2023 Miscellaneous Notes May 17, 2023 PID: [id number] Janay Frederick [address] [place] [address] Dear Ms. Frederick, We are pleased to [...] report will be kept on file at [facility] as part of your permanent medical record and are available for your continuing care. Thank you for allowing us to help in meeting your health care needs. Sincerely, Dr. Richardson Interpreting Radiologist [facility] (Normal over 40) documented in this encounter [facility] 05-16-2023 Note HNO ID: [id number] Author: Kathleen Hoffmann Mammo Tech Service: ? Author Type: Retail Supervisor Type: Progress Notes Filed: 05/16/2023 3:03 PM [...] Shruthi Neville May 16, 2023 2:39 PM [facility] 05-16-2023 History of Present illness Narrative Radiology [...] DATA: Not applicable SIGNED BY: Kathleen Hoffmann [employer] May 16, 2023 2:39 PM documented in this encounter [facility] 04-12-2023 Miscellaneous Notes Patient notified. Marlene Loaiza LPN Order approved. Patient calls and states that she is due to have annual mammogram in April. Patient asking if provider can place order so that mammogram can be scheduled? Please review and advise, Tarsha Hernández RN documented in this encounter [facility] 03-20-2023 Miscellaneous Notes PDMP website checked and [...] Payton Marie [employer] documented in this encounter [facility] 02-20-2023 Miscellaneous Notes Images from the original [...] Leydi Vance MD documented in this encounter [facility] 02-12-2023 Note HNO ID: [id number] Author: Shorty Teresa MD Service: ? Author [...] back pain with last OV yesterday. Taking [employer] as prescribed which is working well for [...] DEVICE 04/21/2010 Performed by THI ALCOCER at [facility] LAPS RPR PARAESPHGL HRNA INCL FUNDPLSTY W/O MESH 04/21/2010 Performed by THI ALCOCER at [facility] MAL LESION FACE,EAR,EYEL 1.1-2CM 01/28/06 Left cheek and right forearm lesions PAST SURGICAL HISTORY OF July 06, 2009 Hysteroscopy DANNE PAST SURGICAL HISTORY OF 10/2017 vaginal vault suspension PAST SURGICAL HISTORY OF 10/2017 Lap band removed UNLIS LAPAROSCOPIC PROCEDURE LIVER 04/21/2010 Performed by THI ALCOCER at [facility] Family History FAMILY HISTORY Problem Relation Age [...] needed (mouth or hand numbness or tingling). tbhctjh-wckinwrrs-kevoyba D3 500 mg-5 mcg (200 unit) per [...] omeprazole (PRILOSEC) 40 (more content not included)... [facility] documented as of this encounter (statuses as of 06/20/2023) [facility] NoteHNO ID: [id number] Author: Yanelis Diaz MD Service: General Surgery [...] Delgado MD 600 mg at 02/08/23 1858 rweqloa-cwmkpvnkf-pdwqozk D3 500 mg-5 mcg (200 unit) 1 [...] 1 Lozenge at 02/08/23 1544 phenol 1 [place] (CHLORASEPTIC) 1 [place] MUCOUS MEMBRANE (TOPICAL MOUTH AND THROAT) q [...] ORAL q 8 H PRN Macy Jameson APRN.GREEN PLUMBER 1 tablet at 02/09/23 0751 acetaminophen 500 mg tab(s) (TYLENOL) 500 mg ORAL q 4 H PRN Macy Jameson APRN.GREEN PLUMBER Date 02/08/23699 - 02/09/23 0659 02/09/23 07 - 02/10/23 0659 Shift 8483-3000 [id number] 24 Hour Total 3651-7011 4119-3574 8082-2471 24 Hour Total INTAKE IV 900 900 [...] Resident Date: February 09, 2023 Time: 8:08 [facility]07-21-2023 NoteHNO ID: [id number] Author: Laura Delgado MD Service: Endocrine Surgery [...] MD General Surgery PGY-4 Endocrine Surgery pager: [phone] S: No acute events since OR. No [...] 4 mg INTRAVENOUS q 6 H PRN Wilber Soliman MD benzocaine-menthol 1 Lozenge (CHLORASEPTIC) 1 Lozenge MUCOUS MEMBRANE (TOPICAL MOUTH AND THROAT) q 2 H PRN Laura Delgado MD 1 Lozenge at 02/08/23 1418 phenol 1 Walkerton (CHLORASEPTIC) 1 Walkerton MUCOUS MEMBRANE (TOPICAL MOUTH AND THROAT) q 2 H PRN Laura Delgado MD Date 02/07/23 07 - 02/08/23 0659(Not Admitted) 02/08/23 07 - 02/09/23 0659 Shift [id number] 3647-4523 2425-2632 24 Hour Total 8114-4422 9168-9659 1172-3084 24 Hour Total INTAKE IV 900 900 [...] developed and its performance characteristics determined by [facility]'s [facility] Pathology and Laboratory Medicine [place] ( [place]). It has not been cleared or approved by the FDA. [facility] is regulated under CLIA as qualified [...] agrees to proceed with today?s plan of care.[facility]07-21-2023 NoteHNO ID: [id number] Author: Ita Tamez AA Service: ? 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%20Medicine%[email or web address] SIGNATURE: Cathie Womack Zipalong PATIENT NAME: Janay Frederick DATE: January 31, 2023 TIME: 1:58 PM PAGER/CONTACT #:[facility]07-13-2023 Instructions* Patient Instructions* Zelda Eric APRN.GREEN PLUMBER - 01/31/2023 10:57 AM EDT PATIENT PREOPERATIVE INSTRUCTIONS [facility]: [phone] -- [address] [place] [address]. Please read below carefully for your personalized [...] sip of water: atorvastatin (lipitor), diltiazem, gabapentin, Albertson, omeprazole (prilosec), potassium chloride, and detrol. If [...] Procedures: - YOU MUST HAVE A RESPONSIBLE HEALTH CARE LIAISON TAKE YOU HOME. A DIRECTOR ORGANIZATIONAL OR KINESIOLOGY PROFESSOR CANNOT BE MADE A RESPONSIBLE HEALTH CARE LIAISON. - We recommend that a responsible person [...] Advance Directive, please fax a copy to [phone] or email to for it to be [...] day. Zelda Eric APRN.CNP documented in this encounterAshtabula County Medical Center07-13-2023 History and physical note * Zelda Eric [...] >1 time per night and renal failure. WING COMMANDER: Negative for abnormal vaginal bleeding, abnormal vaginal [...] DEVICE 04/21/2010 Performed by THI ALCOCER at [facility] LAPS RPR PARAESPHGL HRNA INCL FUNDPLSTY W/O MESH 04/21/2010 Performed by THI ALCOCER at [facility] MAL LESION FACE,EAR,EYEL 1.1-2CM 01/28/06 Left cheek and right forearm lesions PAST SURGICAL HISTORY OF July 06, 2009 Hysteroscopy D&C PAST SURGICAL HISTORY OF 10/2017 vaginal vault suspension PAST SURGICAL HISTORY OF 10/2017 Lap band removed UNLIS LAPAROSCOPIC PROCEDURE LIVER 04/21/2010 Performed by THI ALCOCER at [facility] FAMILY HISTORY Problem Relation Age of Onset [...] naloxone 4 mg/actuation nasal spray (NARCAN) 1 [place] by nasal (alternating) route as needed for [...] 374 QTC Calculation (Bazett) 436 Calculated P [place] 38 Calculated R [place] 18 Calculated T [place] 49 Impression NORMAL SINUS RHYTHM POSSIBLE LEFT ATRIAL ENLARGEMENT BORDERLINE ECG No results found for this or any previous visit (from the past 67398 hour(s)). Assessment Patient has the following medical [...] large neck Non-male patient STOP-Bang Score: 2 [id number] Score: Age: 65-74 Sex: Female CHF history: No Hypertension history: No Stroke/TIA/thromboembolism history: Yes Vascular disease history: Yes Diabetes history: No [id number] Score: 5 ASA Class: 3 ANESTHESIA FINDINGS: [...] 9:42 AM PAGER/CONTACT #: documented in this encounterAshtabula County Medical Center07-13-2023 History of Present illness Narrative* Cathie Womack [employer] Tech - 01/31/2023 9:30 AM EDT RADIOLOGY [...] radiation safety can be found usingthis link: [email or web address] 20Diagnostic%20Nuclear%20Medicine%20Procedures.pdf SIGNATURE: Bib Parra PATIENT NAME: Janay Frederick DATE: January 31, 2023 TIME: 1:58 PM PAGER/CONTACT #: documented in this encounterAshtabula County Medical Center06-15-2023 NoteHNO ID: [id number] Author: Arnol Jonas MD Service: ? Author [...] which included preparing to see the patient, egsa-qz-urzk patient care, completing clinical documentation, obtaining and/or reviewing separately obtained history, performing a medically appropriate examination, counseling and educating the patient/family/caregiver, and care coordination (not separately reported). Large Joint Arthro/Inj: R knee joint Informed Consent Consent Obtained: Verbal Matador Protocol A moment to CARE was completed. [...] bodies accounted for. Arnol Jonas MD Orthopaedic SurgeryMag[facility]06-15-2023 NoteHNO ID: [id number] Author: LOLIS Long Service: Radiology Author Type: [...] BY: LOLIS Long January 03, 2023 2:48 PMSelect [id number] History of Present illness Narrative* Arnol Jonas [...] which included preparing to see the patient, xzxq-jc-smzn patient care, completing clinical documentation, obtaining and/or reviewing separately obtained history, performing a medically appropriate examination, counseling and educating the patient/family/caregiver, and care coordination (not separately reported). Large Joint Arthro/Inj: R knee joint Informed Consent Consent Obtained: Verbal Matador Protocol A moment to CARE was completed. [...] Jonas MD Orthopaedic Surgery documented in this encounterAshtabula County Medical Center05-31-2023 Miscellaneous Notes* Telephone Encounter - Kassandra Sharma APRN.CNP - 12/19/2022 7:25 PM EDT PDMP website checked and validated. All prescriptions have been APPROPRIATELY filled. No suspiciousactivity was identified. 12/19/2022 by Kassandra Sharma APRN.CNP * Telephone Encounter - Asia Naranjo Pss - 12/19/2022 3:33 PM EDT Tamara is syncing her meds through [facility] and needs to scripts on these 3 meds. * Telephone Encounter - Asia Riojas - 12/19/2022 3:32 PM EDT Pharmacy verified in [facility] Patient has been identified by name and [...] advise. Asia Naranjo Pss documented in this encounterAshtabula County Medical Center05-08-2023 NoteHNO ID: [id number] Author: Leydi Vance MD Service: ? Author Type: Physician Type: Progress Notes Filed: 11/28/2022 9:14 PM Note Text: [facility] Endocrine Metabolism [place] Endocrine [facility] Leydi Vance M.D. [address] [place] [id number] Name: Janay Frederick Clinic Number: [id number] Date of Service: November 26, 2022 Janay [...] have been high for 3 years. Ms. Jaany Frederick has multiple medical issues including a [...] have any questions or concerns. Leydi Vance [facility]05-08-2023 History of Present illness Narrative* Leydi Vance MD - 11/26/2022 1:38 PM EDT [facility] Endocrine Metabolism [place] End[facility] Leydi Vance M.D. [address] [place] [address] Name: Janay Frederick Clinic Number: [id number] Date of Service: November 26, 2022 Janay [...] concerns. Leydi Vance MD documented in this encounterAshtabula County Medical Center05-08-2023 Instructions* Patient Instructions* Amparo Jeffries Ma - 11/26/2022 1:30 PM EDT Thank you for choosing the [facility] Department of Endocrinology, Diabetes and Metabolism. Did you know that you need to call 48 hours in advance of your scheduled visit, if you are unable to make your appointment? The Endocrinology and Metabolism [place] thanks you for your commitment, because patients not showing to their appointment results in a lost opportunity for patients to receive world class health care at the [facility]. To Cancel an appointment, please choose one of the following: - Call the Appointment Call Center at [phone] - From [employer] Go to Appointments - Cancel Appts If cancelling, consider your need to reschedule to prevent further delays in your care. To Schedule an appointment, please choose one of the following: - Call the Appointment Call Center at [phone] - From [employer] Go to Appointments - Request an Appt documented in this encounterAshtabula County Medical Center05-04-2023 Miscellaneous Notes* Telephone Encounter - Ita Ferrera [...] you. Crystal Mendoza Sedc documented in this encounterAshtabula County Medical Center05-02-2023 Miscellaneous Notes* Telephone Encounter - Liv Hayes RN - 11/20/2022 3:02 PM EDT Macy with the [facility] calls to request last OV noted be faxed to go with wound care referral received. Faxed to [phone] per request. Liv Hayes RN documented in this encounterAshtabula County Medical Center04-27-2023 Miscellaneous Notes* Telephone Encounter - Sole Toro LPN - 11/15/2022 2:36 PM EDT Spoke with pt and information listed below given. Pt verbalizes understanding. Sole Toro LPN * Telephone Encounter - Shorty Teresa MD - 11/15/2022 1:16 PM EDT That should be OK. Continue treatment at home as we discussed and call if wound is worsening. * Telephone Encounter - aTrsha Hernández RN - 11/15/2022 11:57 AM EDT Patient calls and states that she had made an appointment with [facility] and she could not get into see them until 11/29/2022. Patient asking if this is ok? Please review and advise, Tarsha Hernández RN documented in this encounterAshtabula County Medical Center04-25-2023 NoteHNO ID: [id number] Author: Shorty Teresa MD Service: ? Author [...] DEVICE 04/21/2010 Performed by THI ALCOCER at [facility] LAPS RPR PARAESPHGL HRNA INCL FUNDPLSTY W/O MESH 04/21/2010 Performed by THI ALCOCER at [facility] MAL LESION FACE,EAR,EYEL 1.1-2CM 01/28/06 Left cheek and right forearm lesions PAST SURGICAL HISTORY OF July 06, 2009 Hysteroscopy DANDC PAST SURGICAL HISTORY OF 10/2017 vaginal vault suspension PAST SURGICAL HISTORY OF 10/2017 Lap band removed UNLIS LAPAROSCOPIC PROCEDURE LIVER 04/21/2010 Performed by THI ALCOCER at [facility] Family History FAMILY HISTORY Problem Relation Age [...] naloxone 4 mg/actuation nasal spray (NARCAN) 1 [place] by nasal (alternating) route as needed for known or suspected opioid overdose. Use 1 spray in one nostril as needed for overdose. May repeat every 2 to 3 min in alternating (more content not included)...[facility] 11-13-2022 History of Present illness Narrative* Shorty [...] DEVICE 04/21/2010 Performed by THI ALCOCER at [facility] LAPS RPR PARAESPHGL HRNA INCL FUNDPLSTY W/O MESH 04/21/2010 Performed by THI ALCOCER at [facility] MAL LESION FACE,EAR,EYEL 1.1-2CM 01/28/06 Left cheek and right forearm lesions PAST SURGICAL HISTORY OF July 06, 2009 Hysteroscopy D&C PAST SURGICAL HISTORY OF 10/2017 vaginal vault suspension PAST SURGICAL HISTORY OF 10/2017 Lap band removed UNLIS LAPAROSCOPIC PROCEDURE LIVER 04/21/2010 Performed by THI ALCOCER at [facility] Family History FAMILY HISTORY Problem Relation Age [...] naloxone 4 mg/actuation nasal spray (NARCAN) 1 [place] by nasal (alternating) route as needed for [...] recommend close f/u with wound care at [facility]. Red flags for re-assessment reviewed with patient in detail. 2. Bilateral lower extremity edema - ICD9: 782.3, ICD10: R60.0 Continue with compression stockings, leg elevation with rest, and lasix as prescribed. Shorty Teresa MD documented in this encounterAshtabula County Medical Center04-18-2023 NoteHNO ID: [id number] Author: Shorty Teresa MD Service: ? Author [...] PROCEDURE PLACE DEVICE 04/21/2010 Performed by THI ALCOECR at [facility] LAPS RPR PARAESPHGL HRNA INCL FUNDPLSTY W/O MESH 04/21/2010 Performed by THI ALCOCER at [facility] MAL LESION FACE,EAR,EYEL 1.1-2CM 01/28/06 Left cheek and right forearm lesions PAST SURGICAL HISTORY OF July 06, 2009 Hysteroscopy DANNE PAST SURGICAL HISTORY OF 10/2017 vaginal vault suspension PAST SURGICAL HISTORY OF 10/2017 Lap band removed UNLIS LAPAROSCOPIC PROCEDURE LIVER 04/21/2010 Performed by THI ALCOCER at [facility] Family History FAMILY HISTORY Problem Relation Age [...] by mouth once daily. (more content not included)...[facility]03-03-2023 Miscellaneous Notes* Telephone Encounter - Marlene Loaiza [...] patient. Mickie Babcock Pss documented in this encounterAshtabula County Medical Center03-03-2023 Miscellaneous Notes* Telephone Encounter - Shorty Teresa MD - 09/21/2022 9:57 AM EST Needing order for BMP stat prior to reclast. Order placed as requested. documented in this encounterAshtabula County Medical Center02-23-2023 Miscellaneous Notes* Telephone Encounter - Tarsha Leigh - 09/13/2022 1:31 PM EST Spoke with patient and scheduled. Tarsha Leigh * Addendum Note - France Hadley RPh - 09/13/2022 1:01 PM ESTAddended by: FRANCE HADLEY on: 09/13/2022 01:01 PM Modules accepted: Orders * Telephone Encounter - Tarsha Leigh - 09/13/2022 12:47 PM EST Please convert to [place] for scheduling/prior auth purposes and reroute to [facility]ON[facility] PSR for scheduling. Thank you. Tarsha [...] called for the following: Pt saw Dr. Flaangan and he instructed pt to get a [...] working. Sole Toro LPN documented in this encounterAshtabula County Medical Center02-23-2023 Miscellaneous Notes* Telephone Encounter - Judy Roldan Ma - 09/13/2022 1:20 PM EST Called and spoke with PT, expressed understanding Gave patient phone number to call and make appt with 's office at [phone]. CLOSED * Telephone Encounter - Hayden Flanagan [...] to someone at Main. documented in this encounterAshtabula County Medical Center02-22-2023 NoteHNO ID: [id number] Author: Hayden Flanagan MD Service: ? Author [...] DEVICE 04/21/2010 Performed by THI ALCOCER at [facility] LAPS RPR PARAESPHGL HRNA INCL FUNDPLSTY W/O MESH 04/21/2010 Performed by THI ALCOCER at [facility] MAL LESION FACE,EAR,EYEL 1.1-2CM 01/28/06 Left cheek and right forearm lesions PAST SURGICAL HISTORY OF July 06, 2009 Hysteroscopy DANNE PAST SURGICAL HISTORY OF 10/2017 vaginal vault suspension PAST SURGICAL HISTORY OF 10/2017 Lap band removed UNLIS LAPAROSCOPIC PROCEDURE LIVER 04/21/2010 Performed by THI ALCOCER at [facility] Medications Current Outpatient M (more content not included)...[facility] 09-12-2022 Instructions* Patient Instructions* Hayden Flanagan MD - 09/12/2022 4:33 PM EST - Please call [phone] and ask for the outpatient infusion to schedule your Recalst infusion - If you decided to meet with the parathyroid surgeon, please let me know documented in this encounterAshtabula County Medical Center02-22-2023 History of Present illness Narrative* Hayden Flanagan [...] DEVICE 04/21/2010 Performed by THI ALCOCER at [facility] LAPS RPR PARAESPHGL HRNA INCL FUNDPLSTY W/O MESH 04/21/2010 Performed by THI ALCOCER at [facility] MAL LESION FACE,EAR,EYEL 1.1-2CM 01/28/06 Left cheek and right forearm lesions PAST SURGICAL HISTORY OF July 06, 2009 Hysteroscopy D&C PAST SURGICAL HISTORY OF 10/2017 vaginal vault suspension PAST SURGICAL HISTORY OF 10/2017 Lap band removed UNLIS LAPAROSCOPIC PROCEDURE LIVER 04/21/2010 Performed by THI ALCOCER at [facility] Medications Current Outpatient Medications Medication Sig estradiol [...] naloxone 4 mg/actuation nasal spray (NARCAN) 1 [place] by nasal (alternating) route as needed for [...] which included preparing to see the patient, udpz-wa-gcft patient care, completing clinical documentation, counseling and educating the patient/family/caregiver, and ordering medications, tests, or procedures. Hayden Flanagan MD documented in this encounterAshtabula County Medical Center01-31-2023 Miscellaneous Notes* Telephone Encounter - Adriana Pandya [...] ERNESTO Morales, MT, KIRT documented in this encounterAshtabula County Medical Center01-30-2023 Miscellaneous Notes* Telephone Encounter - Jimbo Post RN - 08/20/2022 4:26 PM EST Patient returned call and given provider's message below with verbalized understanding. * Telephone Encounter - Yael Flores LPN - 08/20/2022 4:20 PM EST Message left for patient to return call to receive provider's message. * Telephone Encounter - Shorty Teresa MD - 08/20/2022 3:57 PM EST jail observational data has not shown any increased risk of cancer, stroke, or heart disease with vaginal estrogen despite family day care worker warnings. I would be ok with trying [...] advise, Tarsha Hernández RN documented in this encounterAshtabula County Medical Center01-27-2023 NoteHNO ID: [id number] Author: Blayne Roldan PA-C Service: ? Author Type: Physician Hogshead Weigher Type: Progress Notes Filed: 09/12/2022 1:20 PM Note Text: [facility] PATIENT CLINIC [...] naloxone 4 mg/actuation nasal spray (NARCAN) 1 [place] by nasal (alternating) route as needed for [...] RESTRICTIVE PROCEDURE PLACE DEVICE (more content not included)...[facility]01-27-2023 NoteHNO ID: [id number] Author: Adriana Pandya LPN Service: ? Author [...] tolerated the procedure well. Plan: Appointment with Blayne.[facility]01-27-2023 History of Present illness Narrative* Blayne Roldan PA-C - 08/17/2022 5:20 PM EST Images from the original note were not included. [facility] PATIENT CLINIC [...] naloxone 4 mg/actuation nasal spray (NARCAN) 1 [place] by nasal (alternating) route as needed for [...] DEVICE 04/21/2010 Performed by THI ALCOCER at [facility] LAPS RPR PARAESPHGL HRNA INCL FUNDPLSTY W/O MESH 04/21/2010 Performed by THI ALCOCER at [facility] MAL LESION FACE,EAR,EYEL 1.1-2CM 01/28/06 Left cheek and right forearm lesions PAST SURGICAL HISTORY OF July 06, 2009 Hysteroscopy D&C PAST SURGICAL HISTORY OF 10/2017 vaginal vault suspension PAST SURGICAL HISTORY OF 10/2017 Lap band removed UNLIS LAPAROSCOPIC PROCEDURE LIVER 04/21/2010 Performed by THI ALCOCER at [facility] FAMILY HISTORY: FAMILY HISTORY Problem Relation Age [...] Plan: Appointment with Blayne. documented in this encounterAshtabula County Medical Center01-25-2023 Miscellaneous Notes* Telephone Encounter - Adwoa Ferguson [...] called stating she has not heard from [facility] yet about STAT US. Please advise patient. documented in this encounterAshtabula County Medical Center01-24-2023 Miscellaneous Notes* Telephone Encounter - Yael Flores [...] discussed in office yesterday. documented in this encounterAshtabula County Medical Center01-23-2023 NoteHNO ID: [id number] Author: Shorty Teresa MD Service: ? Author [...] for her chronic lower back pain. Taking Albertson as prescribed which is working well for [...] DEVICE 04/21/2010 Performed by THI ALCOCER at [facility] LAPS RPR PARAESPHGL HRNA INCL FUNDPLSTY W/O MESH 04/21/2010 Performed by THI ALCOCER at [facility] MAL LESION FACE,EAR,EYEL 1.1-2CM 01/28/06 Left cheek and right forearm lesions PAST SURGICAL HISTORY OF July 06, 2009 Hysteroscopy DANDC PAST SURGICAL HISTORY OF 10/2017 vaginal vault suspension PAST SURGICAL HISTORY OF 10/2017 Lap band removed UNLIS LAPAROSCOPIC PROCEDURE LIVER 04/21/2010 Performed by THI ALCOCER at [facility] Family History FAMILY HISTORY Problem Relation Age [...] by mouth once daily. (more content not included)...[facility]01[facility] History of Present illness Narrative* Shorty Teresa [...] for her chronic lower back pain. Taking Albertson as prescribed which is working well for [...] DEVICE 04/21/2010 Performed by THI ALCOCER at [facility] LAPS RPR PARAESPHGL HRNA INCL FUNDPLSTY W/O MESH 04/21/2010 Performed by THI ALCOCER at [facility] MAL LESION FACE,EAR,EYEL 1.1-2CM 01/28/06 Left cheek and right forearm lesions PAST SURGICAL HISTORY OF July 06, 2009 Hysteroscopy D&C PAST SURGICAL HISTORY OF 10/2017 vaginal vault suspension PAST SURGICAL HISTORY OF 10/2017 Lap band removed UNLIS LAPAROSCOPIC PROCEDURE LIVER 04/21/2010 Performed by THI ALCOCER at [facility] Family History FAMILY HISTORY Problem Relation Age [...] naloxone 4 mg/actuation nasal spray (NARCAN) 1 [place] by nasal (alternating) route as needed for [...] rule out DVT. Scheduled tomorrow morning at [facility]. Discussed with her the importance of [...] 724.2, 338.29, ICD10: M54.50, G89.29 Controlled on Albertson. F/u with Dr. Nur for injections. 11. OAB (overactive bladder) - ICD9: 596.51, ICD10: N32.81 Controlled on Detrol [place]. 12. Vitamin D deficiency - ICD9: 268.9, ICD10: E55.9 Repeat labs ordered for next month with endocrinology. Continue current regimen. I spent a total of 45 minutes on the date of the service which included preparing to see the patient, iamk-yx-orss patient care, completing clinical documentation, obtaining and/or reviewing separately obtained history, performing a medically appropriate examination, counseling and educating the pat ient/family/caregiver, and ordering medications, tests, or procedures. Shorty Teresa MD documented in this encounterAshtabula County Medical Center01-17-2023 NoteHNO ID: [id number] Author: Shorty Teresa MD Service: ? Author [...] DEVICE 04/21/2010 Performed by THI ALCOCER at [facility] LAPS RPR PARAESPHGL HRNA INCL FUNDPLSTY W/O MESH 04/21/2010 Performed by THI ALCOCER at [facility] MAL LESION FACE,EAR,EYEL 1.1-2CM 01/28/06 Left cheek and right forearm lesions PAST SURGICAL HISTORY OF July 06, 2009 Hysteroscopy DANNE PAST SURGICAL HISTORY OF 10/2017 vaginal vault suspension PAST SURGICAL HISTORY OF 10/2017 Lap band removed UNLIS LAPAROSCOPIC PROCEDURE LIVER 04/21/2010 Performed by THI ALCOCER at [facility] Family History FAMILY HISTORY Problem Relation Age [...] naloxone 4 mg/actuation nasal spray (NARCAN) 1 [place] by nasal (alternating) route as needed for [...] mg per ta (more content not included)... [facility]01-05-20[facility] History of Present illness Narrative* Donnell Braden [...] s/p hysterectomy Venous incompetence bilaterally, f/u Dr. Marvailla Vitamin D deficiency PAST SURGICAL HISTORY Procedure [...] DEVICE 04/21/2010 Performed by THI ALCOCER at [facility] LAPS RPR PARAESPHGL HRNA INCL FUNDPLSTY W/O MESH 04/21/2010 Performed by THI ALCOCER at [facility] MAL LESION FACE,EAR,EYEL 1.1-2CM 01/28/06 Left cheek and right forearm lesions PAST SURGICAL HISTORY OF July 06, 2009 Hysteroscopy D&C PAST SURGICAL HISTORY OF 10/2017 vaginal vault suspension PAST SURGICAL HISTORY OF 10/2017 Lap band removed UNLIS LAPAROSCOPIC PROCEDURE LIVER 04/21/2010 Performed by THI ALCOCER at [facility] MEDICATIONS: Current Outpatient Medications Medication Sig gabapentin [...] naloxone 4 mg/actuation nasal spray (NARCAN) 1 [place] by nasal (alternating) route as needed for [...] CULTURE - CEPHALEXIN 500 MG CAPSULE Donnell Braden MD documented in this encounterAsht[facility]12-19-[facility]22 History of Present illness Narrative* Elly Bruno PA-C - 07/09/2022 6:46 PM EST This note was created using Froontriter. Subjective Janay Frederick is a 72 year [...] naloxone 4 mg/actuation nasal spray (NARCAN) 1 [place] by nasal (alternating) route as needed for [...] DEVICE 04/21/2010 Performed by THI ALCOCER at [facility] LAPS RPR PARAESPHGL HRNA INCL FUNDPLSTY W/O MESH 04/21/2010 Performed by THI ALCOCER at [facility] MAL LESION FACE,EAR,EYEL 1.1-2CM 01/28/06 Left cheek and right forearm lesions PAST SURGICAL HISTORY OF July 06, 2009 Hysteroscopy D&C PAST SURGICAL HISTORY OF 10/2017 vaginal vault suspension PAST SURGICAL HISTORY OF 10/2017 Lap band removed UNLIS LAPAROSCOPIC PROCEDURE LIVER 04/21/2010 Performed by THI ALCOCER at [facility] FAMILY HISTORY Problem Relation Age of Onset [...] CULTURE Elly Bruno PA-C documented in this encounterAsht[facility]12-06-2022 Miscellaneous Notes* Telephone Encounter - Kassandra Sharma [...] patient. Mickie Babcock Pss documented in this encounterAshtabula [facility] Center11-10-2022 Miscellaneous Notes* Telephone Encounter - Shorty Teresa [...] vomiting, and nausea. Protocols used: Influenza - [id number] documented in this encounterAshtabula [facility] Center10-07-2022 Miscellaneous Notes* Letter - Mammography Coordinator - 04/27/2022 12:32 PM EDT April 27, 2022 PID: [id number] Janay Frederick [address] [place] [address] Dear Ms. Frederick, We are pleased to [...] report will be kept [facility] as part of your permanent medical record and are available for your continuing care. Thank you for allowing us to help in meeting your health care needs. Sincerely, Dr. Babin Interpreting Radiologist [facility] (Normal over 40) documented in this encounterAshtabula County Medical Center10-06-2022 History of Present illness Narrative* RT Tano(R) [...] 26, 2022 3:10 PM documented in this encounterAshtabula County Medical Center09-30-2022 Miscellaneous Notes* Telephone Encounter - Isabell Hancock Cma - 04/20/2022 10:52 AM EDT Patient [...] this is lab error. documented in this encounterAshtabula County Medical Center09-28-2022 Miscellaneous Notes* Telephone Encounter - Tarsha Hernández RN - 04/18/2022 11:49 AM EDT Patient calls and is asking if prescription can be sent to [facility]. Please review and advise, Tarsha Hernández RN documented in this encounterAshtabula County Medical Center09-13-2022 Miscellaneous Notes* Telephone Encounter - Griselda Mendez [...] send this RX to her pharmacy, [facility] in [place]. documented in this encounterAshtabula County Medical Center09-07-2022 Miscellaneous Notes* Telephone Encounter - Marlene Loaiza LPN - 03/28/2022 8:35 AM EDT Paperwork faxed to [facility] at . Marlene Loaiza LPN * Telephone Encounter - Kassandra Sharma APRN.CNP - 03/28/2022 7:42 AM EDT Please fax paperwork back to [facility]. Kassandra Sharma APRN.LENA * Telephone Encounter - Marlene Loaiza LPN - 03/27/2022 9:58 AM EDT Patient notified of message below. States she will try the medication they're recommending. Please send to [facility]hadra Arellano. Marlene Loaiza LPN * Telephone Encounter - Kassandra Sharma APRN.CNP - 03/27/2022 9:46 AM EDT Please call patient and let her know [facility] has sent request over to change Oxybutynin for [facility] ER due to patient was having trouble cutting tablets in half and dry mouth. Does she want me to change this. Kassandra Sharma APRN.CNP documented in this encounterAshtabula County Medical Center08-28-2022 Miscellaneous Notes* Telephone Encounter - Shorty Teresa [...] patient. Petramichael Presley Pss documented in this encounterAshtabula [facility] Center07-21-2022 Miscellaneous Notes* Telephone Encounter - Neva Martino [...] levels in 2-3 months. documented in this encounterAshtabula County Medical Center07-15-2022 History of Past illness Narrative* Problem Noted Date Diagnosed Date Resolved Date Insomnia 02/02/2022 01/31/2023 Preop testing 10/11/2017 06/26/2018 Overview: Added automatically from request for surgery [id number] Dysphagia 07/09/2017 10/24/2018 Gastric band slippage 07/09/20172017 [...] of this encounter (statuses as of 01/31/2023) [facility]07[facility]15-[facility] History of Past illness Narrative* Problem Noted Date Diagnosed Date Resolved Date Insomnia 02/02/2022 01/31/2023 Preop testing 10/11/2017 06/26/2018 Overview: Added automatically from request for surgery [id number] Dysphagia 07/09/2017 10/24/2018 Gastric band slippage 07/09/20172017 [...] of this encounter (statuses as of 02/01/2023) [facility]07[facility] of Past illness Narrative* Problem Noted Date Diagnosed Date Resolved Date Insomnia 02/02/2022 01/31/2023 Preop testing 10/11/2017 06/26/2018 Overview: Added automatically from request for surgery [id number] Dysphagia 07/09/2017 10/24/2018 Gastric band slippage 07/09/20172017 [...] of this encounter (statuses as of 02/01/2023) [facility] of Past illness Narrative* Problem Noted Date Diagnosed Date Resolved Date Insomnia 02/02/2022 01/31/2023 Preop testing 10/11/2017 06/26/2018 Overview: Added automatically from request for surgery [id number] Dysphagia 07/09/2017 10/24/2018 Gastric band slippage 07/09/20172017 [...] of this encounter (statuses as of 02/05/2023) [facility] of Past illness Narrative* Problem Noted Date Diagnosed Date Resolved Date Insomnia 02/02/2022 01/31/2023 Preop testing 10/11/2017 06/26/2018 Overview: Added automatically from request for surgery [id number] Dysphagia 07/09/2017 10/24/2018 Gastric band slippage 07/09/20172017 [...] of this encounter (statuses as of 02/27/2023) [facility] of [facility] illness Narrative* Problem Noted Date Diagnosed Date Resolved Date Insomnia 02/02/2022 01/31/2023 Preop testing 10/11/2017 06/26/2018 Overview: Added automatically from request for surgery [id number] Dysphagia 07/09/2017 10/24/2018 Gastric band slippage 07/09/20172017 [...] of this encounter (statuses as of 03/28/2023) [facility] of [facility] illness Narrative* Problem Noted Date Diagnosed Date Resolved Date Insomnia 02/02/2022 01/31/2023 Preop testing 10/11/2017 06/26/2018 Overview: Added automatically from request for surgery [id number] Dysphagia 07/09/2017 10/24/2018 Gastric band slippage 07/09/20172017 [...] of this encounter (statuses as of 2023) [facility] of [facility] illness Narrative* Problem Noted Date Diagnosed Date Resolved Date Insomnia 02/02/2022 01/31/2023 Preop testing 10/11/2017 06/26/2018 Overview: Added automatically from request for surgery [id number] Dysphagia 07/09/2017 10/24/2018 Gastric band slippage 07/09/20172017 [...] of this encounter (statuses as of 04/12/2023) [facility] of [facility] illness Narrative* Problem Noted Date Diagnosed Date Resolved Date Insomnia 02/02/2022 01/31/2023 Preop testing 10/11/2017 06/26/2018 Overview: Added automatically from request for surgery [id number] Dysphagia 07/09/2017 10/24/2018 Gastric band slippage 07/09/20172017 [...] of this encounter (statuses as of 05/21/2023) [facility] of [facility] illness Narrative* Problem Noted Date Diagnosed Date Resolved Date Insomnia 02/02/2022 01/31/2023 Preop testing 10/11/2017 06/26/2018 Overview: Added automatically from request for surgery [id number] Dysphagia 07/09/2017 10/24/2018 Gastric band slippage 07/09/20172017 [...] of this encounter (statuses as of 05/26/2023) [facility] of [facility] illness Narrative* Problem Noted Date Diagnosed Date Resolved Date Insomnia 02/02/2022 01/31/2023 Preop testing 10/11/2017 06/26/2018 Overview: Added automatically from request for surgery [id number] Dysphagia 07/09/2017 10/24/2018 Gastric band slippage 07/09/20172017 [...] of this encounter (statuses as of 05/30/2023) [facility]07-14-[facility] Miscellaneous Notes* Telephone Encounter - Neva Martino [...] ultrasound to further evaluate. documented in this encounterAshtabula [facility] Medical Center06-28-2022 Miscellaneous Notes* Telephone Encounter - Latanya Love [...] 01/15/2022 4:22 PM EDT Will send to [facility] to possibly help assist with this. [...] any chance? Thank you. documented in this encounterAshtabula [facility] Medical Center06-08-2022 Miscellaneous Notes* Telephone Encounter - Marlene Loaiza [...] calling: self Call patient at: on cell [phone] (home) [phone] (cell) Was an appointment scheduled: No Closing statement: Results or non-symptom based questions: Thank you for calling [facility], your call will be returned within the next business day. Carmel Cheng Pss documented in this encounterAshtabula [facility] Center06-06-2022 Miscellaneous Notes* Telephone Encounter - Kassandra Sharma [...] as well. If you can contact patient [phone]. Patient has been identified by name and [...] patient. Chelsea Toro Pss documented in this encounterAshtabula [facility] Center05-17-2022 History of Present illness Narrative* Shorty Teresa MD - 12/05/2021 7:02 PM EDT Chief Complaint Patient presents with: ER F/U: 12/02/21 HPI Janay Frederick is a 71 year old female who presents here today for ER Follow Up.. Patient evaluated at [facility] ED on 12/02 for complaint of [...] should replace it once per week. Taking [employer] 3 times per day as well. Does [...] DEVICE 04/21/2010 Performed by THI ALCOCER at [facility] LAPS RPR PARAESPHGL HRNA INCL FUNDPLSTY W/O MESH 04/21/2010 Performed by THI ALCOCER at [facility] MAL LESION FACE,EAR,EYEL 1.1-2CM 01/28/06 Left cheek and right forearm lesions PAST SURGICAL HISTORY OF July 06, 2009 Hysteroscopy D&C PAST SURGICAL HISTORY OF 10/2017 vaginal vault suspension PAST SURGICAL HISTORY OF 10/2017 Lap band removed UNLIS LAPAROSCOPIC PROCEDURE LIVER 04/21/2010 Performed by THI ALCOCER at [facility] Family History FAMILY HISTORY Problem Relation Age [...] SPRAY Shorty Teresa MD documented in this encounterAshtabula [facility] Center03-23-2018 History of Past illness Narrative* Problem Noted Date Resolved Date Preop testing 10/11/2017 06/26/2018 Overview: Added automatically from request for surgery [id number] Dysphagia 07/09/2017 10/24/2018 Gastric band slippage 07/09/2017 [...] of this encounter (statuses as of 12/06/2021) [facility] of [facility] illness Narrative* Problem Noted Date Resolved Date Preop testing 10/11/2017 06/26/2018 Overview: Added automatically from request for surgery [id number] Dysphagia 07/09/2017 10/24/2018 Gastric band slippage 07/09/2017 [...] of this encounter (statuses as of 12/25/2021) [facility] Narrative* Problem Noted Date Resolved Date Preop testing 10/11/2017 06/26/2018 Overview: Added automatically from request for surgery [id number] Dysphagia 07/09/2017 10/24/2018 Gastric band slippage 07/09/2017 [...] of this encounter (statuses as of 12/27/2021) [facility] Narrative* Problem Noted Date Resolved Date Preop testing 10/11/2017 06/26/2018 Overview: Added automatically from request for surgery [id number] Dysphagia 07/09/2017 10/24/2018 Gastric band slippage 07/09/2017 [...] of this encounter (statuses as of 01/24/2022) [facility] Narrative* Problem Noted Date Resolved Date Preop testing 10/11/2017 06/26/2018 Overview: Added automatically from request for surgery [id number] Dysphagia 07/09/2017 10/24/2018 Gastric band slippage 07/09/2017 [...] of this encounter (statuses as of 02/08/2022) [facility] Narrative* Problem Noted Date Resolved Date Preop testing 10/11/2017 06/26/2018 Overview: Added automatically from request for surgery [id number] Dysphagia 07/09/2017 10/24/2018 Gastric band slippage 07/09/2017 [...] of this encounter (statuses as of 02/08/2022) [facility] Narrative* Problem Noted Date Resolved Date Preop testing 10/11/2017 06/26/2018 Overview: Added automatically from request for surgery [id number] Dysphagia 07/09/2017 10/24/2018 Gastric band slippage 07/09/2017 [...] of this encounter (statuses as of 03/18/2022) [facility] Narrative* Problem Noted Date Resolved Date Preop testing 10/11/2017 06/26/2018 Overview: Added automatically from request for surgery [id number] Dysphagia 07/09/2017 10/24/2018 Gastric band slippage 07/09/2017 [...] of this encounter (statuses as of 03/28/2022) [facility] Narrative* Problem Noted Date Resolved Date Preop testing 10/11/2017 06/26/2018 Overview: Added automatically from request for surgery [id number] Dysphagia 07/09/2017 10/24/2018 Gastric band slippage 07/09/2017 [...] of this encounter (statuses as of 04/03/2022) [facility] Narrative* Problem Noted Date Resolved Date Preop testing 10/11/2017 06/26/2018 Overview: Added automatically from request for surgery [id number] Dysphagia 07/09/2017 10/24/2018 Gastric band slippage 07/09/2017 [...] of this encounter (statuses as of 04/18/2022) [facility] Narrative* Problem Noted Date Resolved Date Preop testing 10/11/2017 06/26/2018 Overview: Added automatically from request for surgery [id number] Dysphagia 07/09/2017 10/24/2018 Gastric band slippage 07/09/2017 [...] of this encounter (statuses as of 04/20/2022) [facility] Narrative* Problem Noted Date Resolved Date Preop testing 10/11/2017 06/26/2018 Overview: Added automatically from request for surgery [id number] Dysphagia 07/09/2017 10/24/2018 Gastric band slippage 07/09/2017 [...] of this encounter (statuses as of 04/24/2022) [facility] Narrative* Problem Noted Date Resolved Date Preop testing 10/11/2017 06/26/2018 Overview: Added automatically from request for surgery [id number] Dysphagia 07/09/2017 10/24/2018 Gastric band slippage 07/09/2017 [...] of this encounter (statuses as of 04/27/2022) [facility] Narrative* Problem Noted Date Resolved Date Preop testing 10/11/2017 06/26/2018 Overview: Added automatically from request for surgery [id number] Dysphagia 07/09/2017 10/24/2018 Gastric band slippage 07/09/2017 [...] of this encounter (statuses as of 05/01/2022) [facility]arr[facility]* Problem Noted Date Resolved Date Preop testing 10/11/2017 06/26/2018 Overview: Added automatically from request for surgery [id number] Dysphagia 07/09/2017 10/24/2018 Gastric band slippage 07/09/2017 [...] of this encounter (statuses as of 05/31/2022) [facility] Narrative* Problem Noted Date Resolved Date Preop testing 10/11/2017 06/26/2018 Overview: Added automatically from request for surgery [id number] Dysphagia 07/09/2017 10/24/2018 Gastric band slippage 07/09/2017 [...] of this encounter (statuses as of 06/26/2022) [facility]arrative* Problem Noted Date Resolved Date Preop testing 10/11/2017 06/26/2018 Overview: Added automatically from request for surgery [id number] Dysphagia 07/09/2017 10/24/2018 Gastric band slippage 07/09/2017 [...] of this encounter (statuses as of 07/09/2022) [place] [address]-23-2018 History of Past illness Narrative* Problem Noted Date Resolved Date Preop testing 10/11/2017 06/26/2018 Overview: Added automatically from request for surgery [id number] Dysphagia 07/09/2017 10/24/2018 Gastric band slippage 07/09/2017 [...] of this encounter (statuses as of 07/10/2022) [facility]* Problem Noted Date Resolved Date Preop testing 10/11/2017 06/26/2018 Overview: Added automatically from request for surgery [id number] Dysphagia 07/09/2017 10/24/2018 Gastric band slippage 07/09/2017 [...] of this encounter (statuses as of 07/27/2022) [facility]arr[facility]* Problem Noted Date Resolved Date Preop testing 10/11/2017 06/26/2018 Overview: Added automatically from request for surgery [id number] Dysphagia 07/09/2017 10/24/2018 Gastric band slippage 07/09/2017 [...] of this encounter (statuses as of 08/14/2022) [facility]* Problem Noted Date Resolved Date Preop testing 10/11/2017 06/26/2018 Overview: Added automatically from request for surgery [id number] Dysphagia 07/09/2017 10/24/2018 Gastric band slippage 07/09/2017 [...] of this encounter (statuses as of 08/14/2022) [facility]* Problem Noted Date Resolved Date Preop testing 10/11/2017 06/26/2018 Overview: Added automatically from request for surgery [id number] Dysphagia 07/09/2017 10/24/2018 Gastric band slippage 07/09/2017 [...] of this encounter (statuses as of 08/15/2022) [facility]* Problem Noted Date Resolved Date Preop testing 10/11/2017 06/26/2018 Overview: Added automatically from request for surgery [id number] Dysphagia 07/09/2017 10/24/2018 Gastric band slippage 07/09/2017 [...] of this encounter (statuses as of 08/21/2022) [facility]* Problem Noted Date Resolved Date Preop testing 10/11/2017 06/26/2018 Overview: Added automatically from request for surgery [id number] Dysphagia 07/09/2017 10/24/2018 Gastric band slippage 07/09/2017 [...] of this encounter (statuses as of 08/21/2022) [facility]arrative* Problem Noted Date Resolved Date Preop testing 10/11/2017 06/26/2018 Overview: Added automatically from request for surgery [id number] Dysphagia 07/09/2017 10/24/2018 Gastric band slippage 07/09/2017 [...] of this encounter (statuses as of 09/12/2022) [facility]arrative* Problem Noted Date Resolved Date Preop testing 10/11/2017 06/26/2018 Overview: Added automatically from request for surgery [id number] Dysphagia 07/09/2017 10/24/2018 Gastric band slippage 07/09/2017 [...] of this encounter (statuses as of 09/13/2022) [facility]* Problem Noted Date Resolved Date Preop testing 10/11/2017 06/26/2018 Overview: Added automatically from request for surgery [id number] Dysphagia 07/09/2017 10/24/2018 Gastric band slippage 07/09/2017 [...] of this encounter (statuses as of 09/13/2022) [facility] Narrative* Problem Noted Date Resolved Date Preop testing 10/11/2017 06/26/2018 Overview: Added automatically from request for surgery [id number] Dysphagia 07/09/2017 10/24/2018 Gastric band slippage 07/09/2017 [...] of this encounter (statuses as of 09/13/2022) [facility] Narrative* Problem Noted Date Resolved Date Preop testing 10/11/2017 06/26/2018 Overview: Added automatically from request for surgery [id number] Dysphagia 07/09/2017 10/24/2018 Gastric band slippage 07/09/2017 [...] of this encounter (statuses as of 09/13/2022) [facility]arrative* Problem Noted Date Resolved Date Preop testing 10/11/2017 06/26/2018 Overview: Added automatically from request for surgery [id number] Dysphagia 07/09/2017 10/24/2018 Gastric band slippage 07/09/2017 [...] of this encounter (statuses as of 09/13/2022) [facility]arrative* Problem Noted Date Resolved Date Preop testing 10/11/2017 06/26/2018 Overview: Added automatically from request for surgery [id number] Dysphagia 07/09/2017 10/24/2018 Gastric band slippage 07/09/2017 [...] of this encounter (statuses as of 09/21/2022) [facility]* Problem Noted Date Resolved Date Preop testing 10/11/2017 06/26/2018 Overview: Added automatically from request for surgery [id number] Dysphagia 07/09/2017 10/24/2018 Gastric band slippage 07/09/2017 [...] of this encounter (statuses as of 09/24/2022) [facility] Narrative* Problem Noted Date Resolved Date Preop testing 10/11/2017 06/26/2018 Overview: Added automatically from request for surgery [id number] Dysphagia 07/09/2017 10/24/2018 Gastric band slippage 07/09/2017 [...] of this encounter (statuses as of 10/22/2022) [facility]ative* Problem Noted Date Resolved Date Preop testing 10/11/2017 06/26/2018 Overview: Added automatically from request for surgery [id number] Dysphagia 07/09/2017 10/24/2018 Gastric band slippage 07/09/2017 [...] of this encounter (statuses as of 11/14/2022) [facility]* Problem Noted Date Resolved Date Preop testing 10/11/2017 06/26/2018 Overview: Added automatically from request for surgery [id number] Dysphagia 07/09/2017 10/24/2018 Gastric band slippage 07/09/2017 [...] of this encounter (statuses as of 11/15/2022) [facility]arrative* Problem Noted Date Resolved Date Preop testing 10/11/2017 06/26/2018 Overview: Added automatically from request for surgery [id number] Dysphagia 07/09/2017 10/24/2018 Gastric band slippage 07/09/2017 [...] of this encounter (statuses as of 11/15/2022) [facility] Narrative* Problem Noted Date Resolved Date Preop testing 10/11/2017 06/26/2018 Overview: Added automatically from request for surgery [id number] Dysphagia 07/09/2017 10/24/2018 Gastric band slippage 07/09/2017 [...] of this encounter (statuses as of 11/21/2022) [facility] Narrative* Problem Noted Date Resolved Date Preop testing 10/11/2017 06/26/2018 Overview: Added automatically from request for surgery [id number] Dysphagia 07/09/2017 10/24/2018 Gastric band slippage 07/09/2017 [...] of this encounter (statuses as of 11/26/2022) [facility]arrative* Problem Noted Date Resolved Date Preop testing 10/11/2017 06/26/2018 Overview: Added automatically from request for surgery [id number] Dysphagia 07/09/2017 10/24/2018 Gastric band slippage 07/09/2017 [...] of this encounter (statuses as of 11/28/2022) [facility]arr[facility]* Problem Noted Date Resolved Date Preop testing 10/11/2017 06/26/2018 Overview: Added automatically from request for surgery [id number] Dysphagia 07/09/2017 10/24/2018 Gastric band slippage 07/09/2017 [...] of this encounter (statuses as of 11/29/2022) [facility] History of Past illness Narrative* Problem Noted Date Resolved Date Preop testing 10/11/2017 06/26/2018 Overview: Added automatically from request for surgery [id number] Dysphagia 07/09/2017 10/24/2018 Gastric band slippage 07/09/2017 [...] of this encounter (statuses as of 12/03/2022) [facility] History of Past illness Narrative* Problem Noted Date Resolved Date Preop testing 10/11/2017 06/26/2018 Overview: Added automatically from request for surgery [id number] Dysphagia 07/09/2017 10/24/2018 Gastric band slippage 07/09/2017 [...] of this encounter (statuses as of 12/20/2022) [facility] History of Past illness Narrative* Problem Noted Date Resolved Date Preop testing 10/11/2017 06/26/2018 Overview: Added automatically from request for surgery [id number] Dysphagia 07/09/2017 10/24/2018 Gastric band slippage 07/09/2017 [...] of this encounter (statuses as of 01/04/2023) [facility] Diagnosis Acute cystitis without hematuria- Primary Acute cystitis Dizziness Dizziness and giddiness Fatigue, unspecified type Hypokalemia Hypopotassemia Opioid use documented in this encounter [facility] Diagnosis Lower extremity edema- Primary Edema Venous incompetence Unspecified venous (peripheral) insufficiency [facility] Elevated alkaline phosphatase level Other nonspecific abnormal serum enzyme levels Elevated LFTs Other abnormal blood chemistry [facility] Elevated alkaline phosphatase level- Primary Other nonspecific abnormal serum enzyme levels Elevated LFTs Other abnormal blood chemistry [facility] Diagnosis Gastroesophageal reflux disease, unspecified whether esophagitis present Esophageal dysphagia Dysphagia, pharyngoesophageal phase documented [facility] this [facility] Diagnosis Hypokalemia- Primary Hypopotassemia documented in this encounter [facility] note* Diagnosis Elevated LFTs- Primary Other abnormal blood chemistry Elevated alkaline phosphatase level Other nonspecific abnormal serum enzyme levels Screening mammogram for breast cancer documented in this encounter [facility] note* Diagnosis Screening mammogram for breast cancer documented in this encounter [facility] note* Diagnosis Acute UTI- Primary Urinary tract infection, site not specified documented in this encounter [facility] note* Diagnosis Urinary frequency- Primary documented in this encounter [facility] note* Diagnosis Left leg swelling- Primary [...] affecting unspecified side documented in this encounter [facility] note* Diagnosis Urinary tract infection without hematuria, site unspecified- Primary Atrophic vaginitis Postmenopausal atrophic vaginitis documented in this encounter [facility] note* Diagnosis Osteoporosis without current pathological fracture, unspecified osteoporosis type [M81.0 (ICD-10-CM)]- Primary Hyperparathyroidism (HCC) Hyperparathyroidism, unspecified documented in this encounter [facility] note* Diagnosis Hyperparathyroidism (HCC)- Primary Hyperparathyroidism, unspecified documented in this encounter [facility] note* Diagnosis Osteopenia, unspecified location documented in this encounter [facility] note* Diagnosis Other osteoporosis, unspecified pathological fracture presence- Primary documented in this encounter [facility] note* Diagnosis Hyperparathyroidism (HCC)- Primary Hyperparathyroidism, unspecified documented in this encounter [facility] note* Diagnosis Skin tear of left lower leg without complication, initial encounter- Primary Bilateral lower extremity edema Edema documented in this encounter [facility] note* Diagnosis Pain in both knees, unspecified chronicity- Primary documented in this encounter [facility] note* Diagnosis Primary hyperparathyroidism (HCC)- Primary Primary hyperparathyroidism documented in this encounter [facility] note* Diagnosis Hyperparathyroidism (HCC) Hyperparathyroidism, unspecified documented in this encounter [facility] note* Diagnosis Primary hyperparathyroidism (HCC)- Primary Primary hyperparathyroidism Hypercalcemia Hyperparathyroidism (HCC) Hyperparathyroidism, unspecified Primary hyperparathyroidism (HCC) Primary hyperparathyroidism documented in this encounter [facility] note* Diagnosis Primary osteoarthritis of right knee- Primary Primary localized osteoarthrosis, lower leg Primary hyperparathyroidism (HCC) Primary hyperparathyroidism documented in this encounter [facility] note* Diagnosis Pre-op evaluation- Primary Preoperative [...] (HCC) Primary hyperparathyroidism documented in this encounter [facility] note* Diagnosis Primary hyperparathyroidism (HCC) Primary hyperparathyroidism Hypercalcemia Primary hyperparathyroidism (HCC) Primary hyperparathyroidism documented in this encounter [facility] note* Diagnosis Hyperparathyroidism (HCC)- Primary Hyperparathyroidism, unspecified Primary hyperparathyroidism (HCC) Primary hyperparathyroidism documented in this encounter [facility] note* Diagnosis Osteopenia, unspecified location- Primary [facility] Diagnosis Mixed hyperlipidemia documented in this encounter [facility] note* Diagnosis Screening mammogram for breast cancer- Primary [facility] Diagnosis Screening mammogram for breast cancer documented in this encounter [facility] note* Diagnosis Hyperparathyroidism (HCC)- Primary Hyperparathyroidism, unspecified Osteoporosis without current pathological fracture, unspecified osteoporosis type documented in this encounter [facility] note* Diagnosis Mixed hyperlipidemia- Primary Immunization [...] (HCC) Morbid obesity documented in this encounter [facility] for referral (narrative)* Diagnostic Procedure Only (Routine) - Closed Specialty Diagnoses / Procedures Referred By Antione t Referred To Contact US IMAGING Diagnoses Elevated alkaline phosphatase level Elevated LFTs Procedures US ABD RT UPPER QUADRANT US ABDOMINAL REAL TIME W/IMAGE LIMITED Shorty Teresa MD [address] [place] [address] Us Imaging Referral ID Status Reason Start Date Expiration Date V isits Requested Visits Authorized [id number] Closed Auto-Generated Referral Patient Cleared - INN Insurance Found 02/02/2022 07/21/[address] [facility] for referral (narrative)* Diagnostic Procedure Only (Routine) - Closed Specialty Diagnoses / Procedures Referred By Antione macias Referred To Contact US IMAGING Diagnoses Elevated alkaline phosphatase level Elevated LFTs Procedures US ABD RT UPPER QUADRANT US ABDOMINAL REAL TIME W/IMAGE LIMITED Shorty Teresa MD [address] [place] [address] Us Imaging Referral ID Status Reason Start Date Expiration Date V isits Requested Visits Authorized [id number] Closed Auto-Generated Referral Patient Cleared - INN Insurance Found 02/02/2022 07/21/[address] [facility] for referral (narrative)* Diagnostic Procedure Only (Routine) - Closed Specialty Diagnoses / Procedures Referred By Antione t Referred To Contact BR IMAGING Diagnoses Screening mammogram for breast cancer Procedures CRISTINA SCREENING SCREENING MAMMOGRAPHY BI 2-VIEW BREAST INC CAD Shorty Teresa MD [address] [place] [address] Br Imaging [address] [place] [address] Referral ID Status Reason Start Date Expiration Date V isits Requested Visits Authorized [id number] Closed Auto-Generate d Referral 02/08/2022 03/10/[address] [facility] for referral (narrative)* Outpatient Procedure (Urgent) - Pending Review Specialty Diagnoses / Procedures Referred By Contac t Referred To Contact [facility] Diagnoses Left leg swelling Procedures US LEG VEIN DVT UNL VAS LAB DUP-SCAN XTR VEINS UNILATERAL/LIMITED STUDY Shorty Teresa MD [address] [place] [address] [facility] [address] [place] [address] Referral ID Status Reason Start Date Expiration Date Visits Requested Visits Authorized [id number] Pending Review Auto-Generat ed Referral 08/13/2022 08/13/[address] [facility] for referral (narrative)* Diagnostic Procedure Only (Routine) - Pending Review Specialty Diagnoses / Procedures Referred By Contac t Referred To Contact XR IMAGING Diagnoses Pain in both knees, unspecified chronicity Procedures XR KNEE POST OP 3V AP/LAT/MERCHANT BILATERAL RADIOLOGIC EXAMINATION KNEE 3 VIEWS John Desai PA-C [address] [place] [address] Xr Imaging Referral ID Status Reason Start Date Expiration Date Visits Requested Visits Authorized [id number] Pending Review Auto-Generat ed Referral 11/14/2022 12/14/[address] [facility] for referral (narrative)* Diagnostic Procedure Only (Routine) - Closed Specialty Diagnoses / Procedures Referred By Contact Referred To Contact [facility] Diagnoses Primary hyperparathyroidism (HCC) Hypercalcemia Procedures NM PARATHYROID W SPECT/CT PARATHYROID IMAGING W/TOMOGRAPHIC SPECT & CT Leydi Vance MD [address] [place] [address] [facility] [address] [place] [address] Referral ID Status Reason Start Date Expiration Date V isits Requested Visits Authorized [id number] Closed Auto-Generate d Referral 12/03/2022 01/02/[address] [facility] for referral (narrative)* Diagnostic Procedure Only (Routine) - Authorized Specialty Diagnoses / Procedures Referred By Rebeccaac t Referred To Contact BR IMAGING Diagnoses Screening mammogram for breast cancer Procedures CRISTINA SCREENING SCREENING MAMMOGRAPHY BI 2-VIEW BREAST INC Shorty Sifuentes MD [address] [place] [address] [facility] Imaging [address] [place] [address] Referral ID Status Reason Start Date Expiration Date Visits Requested Visits Authorized [id number] Authorized Auto-Generat ed Referral 04/12/2023 05/11/[address] [facility] for referral (narrative)* Diagnostic Procedure Only (Routine) - Closed Specialty Diagnoses / Procedures Referred By Antione macias Referred To Contact [facility] IMAG[facility] Diagnoses Screening mammogram for breast cancer Procedures CRISTINA SCREENING SCREENING MAMMOGRAPHY BI 2-VIEW BREAST INC Shorty Sifuentes MD [address] [place] [address] Br Imaging [address] [address] Referral ID Status Reason Start Date Expiration Date V isits Requested Visits Authorized [id number] Closed Auto-Generate d Referral 04/12/2023 05/11/[address] [facility] for referral (narrative)* Diagnostic Procedure Only (Routine) - Pending Review Specialty Diagnoses / Procedures Referred By Contac t Referred To Contact XR IMAGING Diagnoses Hyperparathyroidism (HCC) Osteoporosis without current pathological fracture, unspecified osteoporosis type Procedures DXA-FOREARM SKELETON DXA BONE DENSITY STUDY 1/>SITES APPENDICLR Hayden Carlson [place] [address] [place] [address] Referral ID Status Reason Start Date Expiration Date Visits Requested Visits Authorized [id number] Pending Review Auto-Generat ed Referral 09/12/2023 06/27/[address] [facility] for visit Narrative* Diagnostic Procedure Only (Routine) - Closed Specialty Diagnoses / Procedures Referred By Antione macias Referred To Contact US IMAGING Diagnoses Elevated alkaline phosphatase level Elevated LFTs Procedures US ABD RT UPPER QUADRANT US ABDOMINAL REAL TIME W/IMAGE LIMITED Shorty Teresa MD [address] [place] [address] Us Imaging Referral ID Status Reason Start Date Expiration Date V isits Requested Visits Authorized [id number] Closed Auto-Generated Referral Patient Cleared - INN Insurance Found 02/02/2022 07/21/[address] [facility] for visit Narrative* Diagnostic Procedure Only (Routine) - Closed Specialty Diagnoses / Procedures Referred By Antione macias Referred To Contact [facility] Diagnoses Screening mammogram for breast cancer Procedures CRISTINA SCREENING SCREENING MAMMOGRAPHY BI 2-VIEW BREAST INC CAD Shorty Teresa MD [address] [place] [address] [facility] Imaging [address] [place] [address] Referral ID Status Reason Start Date Expiration Date V isits Requested Visits Authorized [id number] Closed Auto-Generate d Referral 02/08/2022 03/10/[address] [facility] for visit Narrative* Diagnostic Procedure Only (Routine) - Closed Specialty Diagnoses / Procedures Referred By Contact Referred To Contact [facility]AL [facility] Diagnoses Primary hyperparathyroidism (HCC) Hypercalcemia Procedures NM PARATHYROID W SPECT/CT PARATHYROID IMAGING W/TOMOGRAPHIC SPECT & CT Leydi Vance MD [address] [place] [address] [facility] [address] [place] [address] Referral ID Status Reason Start Date Expiration Date V isits Requested Visits Authorized [id number] Closed Auto-Generate d Referral 12/03/2022 01/02/[address] [facility] for visit Narrative* Diagnostic Procedure Only (Routine) - Closed Specialty Diagnoses / Procedures Referred By Contac t Referred To Contact [facility] IMAG[facility] Diagnoses Screening mammogram for breast cancer Procedures CRISTINA SCREENING SCREENING MAMMOGRAPHY BI 2-VIEW BREAST INC CAD Shorty Teresa MD [address] [place] [address] [facility] Imaging [address] [place] [address] Referral ID Status Reason Start Date Expiration Date V isits Requested Visits Authorized [id number] Closed Auto-Generate d Referral 04/12/2023 05/11/2024 1 1 [facility] Summary Purpose Family History No Family History Records FoundNo Family History Records FoundNo Family History Records FoundNo Family History Records Found Advance Directives No Advanced Directives Records FoundDocuments on File Type Date 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 Advance Directive(s) Advance Directive(s) 10/31/2017 2:52 PM Advance Directive(s) 07/16/2017 2:14 PM Advance Directive(s) 07/16/2017 2:15 PM Advance Directive(s) 07/12/2017 12:38 PM Advance Directive(s) 07/20/2016 12:15 PM Documents on File Type Date 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 Advance Directive(s) Advance Directive(s) 10/31/2017 2:52 PM Advance Directive(s) 07/16/2017 2:14 PM Advance Directive(s) 07/16/2017 2:15 PM Advance Directive(s) 07/12/2017 12:38 PM Advance Directive(s) 07/20/2016 12:15 PM Documents on File Type Date 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 Advance Directive(s) 07/16/2017 2:15 PM Documents on File Type Date 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 Advance Directive(s) 07/16/2017 2:15 PM Reason for Referral Specialty Diagnoses / Procedures Referred By Contac t Referred To Contact Endocrinology Diagnoses Elevated LFTs Elevated alkaline phosphatase level Procedures CONSULT TO ENDOCRINOLOGY OFFICE/OUTPATIENT NEW HIGH MDM 60-74 MINUTES Shorty Teresa MD [address] [place] [address] Referral ID Status Reason Start Date Expiration Date Visits Requested Visits Authorized [id number] Pending Review PCP Requested Referral 04/24/2022 02/08/2023 1 1 Specialty Diagnoses / Procedures Referred By Contac t Referred To Contact [facility] Diagnoses Screening mammogram for breast cancer Procedures CRISTINA SCREENING SCREENING MAMMOGRAPHY BI 2-[place] [address] [place] [address] [facility] [address] [place] [address] Referral ID Status Reason Start Date Expiration Date Visits Requested Visits Authorized [id number] Authorized Auto-Generat ed Referral 02/08/2022 03/10/2023 1 1 Specialty Diagnoses / Procedures Referred By Contac t Referred To Contact Shorty Teresa MD [address] [place] [address] Referral ID Status Reason Start Date Expiration Date Visits Re quested Visits Authorized [id number] Closed 1 1 Specialty Diagnoses / Procedures Referred By Contac t Referred To Contact Diagnoses Hyperparathyroidism (HCC) Procedures CONSULT TO ENDOCRINE SURGERY OFFICE/OUTPATIENT NEW [facility] 60-74 MINUTES Hayden Flanagan MD [address] [place] [address] Referral ID Status Reason Start Date Expiration Date Visits Requested Visits Authorized [id number] Pending Review PCP Requested Referral 09/13/2022 09/13/2023 1 1 Specialty Diagnoses / Procedures Referred By Contac t Referred To Contact Diagnoses Primary hyperparathyroidism (HCC) Procedures REFER TO PACC - PRE ANESTHESIA CONSULTATION CLINIC OFFICE/OUTPATIENT NEW [facility] MDM 60-74 MINUTES Leydi Vance MD [address] [place] [address] Referral ID Status Reason Start Date Expiration Date Visits Requested Visits Authorized [id number] Pending Review PCP Requested Referral 12/03/2022 12/03/2023 1 1 Specialty Diagnoses / Procedures Referred By Contact Referred To Contact [facility]LECULAR [facility] FUNCTIONAL IMAG[facility] Diagnoses Primary hyperparathyroidism (HCC) Hypercalcemia Procedures NM PARATHYROID W SPECT/CT PARATHYROID IMAGING W/TOMOGRAPHIC SPECT & CT Leydi Vance MD [address] [place] [address] [facility] [address] [place] [address] Referral ID Status Reason Start Date Expiration Date Visits Requested Visits Authorized [id number] Pending Review Auto-Generat ed Referral 12/03/2022 01/02/2024 1 1 Specialty Diagnoses / Procedures Referred By Contact Referred To Contact [facility] Diagnoses Primary hyperparathyroidism (HCC) Procedures ECG COMPLETE ECG ROUTINE ECG W/LEAST 12 LDS W/I&R Leydi Vance MD [address] [place] [address] [facility] [place] [address] [place] [address] Referral ID Status Reason Start Date Expiration Date Visits Requested Visits Authorized [id number] Pending Review Auto-Generat ed Referral 12/03/2022 12/03/2023 [...] DATE CREATED AUTHOR AUTHOR'S ORGANIZ ATION 01/05/2023 [facility] DATE CREATED AUTHOR AUTHOR[facility]S [facility]IZ ATION [facility] DATE CREATED AUTHOR AUTHOR'S ORGANIZ ATION 07/28/2023 [facility] Source Comments (unrecognize d section and content) In the event this informatio n is protected by the Federal Confidentiality of Alcohol and Drug Abuse Patient Records regulations: The Federal rules restrict any use of the information to criminally investigate or prosecute any alcohol or drug abuse patient.[facility] the event this information is protected by the Federal Confidentiality of Alcohol and Drug Abuse Patient Records regulations: The Federal rules restrict any use of the information to criminally investigate or prosecute any alcohol or drug abuse patient.[facility] the event this information is protected by the Federal Confidentiality of Alcohol and Drug Abuse Patient Records regulations: The Federal rules restrict any use of the information to criminally investigate or prosecute any alcohol or drug abuse patient.[facility] the event this information is protected by the Federal Confidentiality of Alcohol and Drug Abuse Patient Records regulations: The Federal rules restrict any use of the information to criminally investigate or prosecute any alcohol or drug abuse patient.[facility] the event this information is protected by the Federal Confidentiality of Alcohol and Drug Abuse Patient Records regulations: The Federal rules restrict any use of the information to criminally investigate or prosecute any alcohol or drug abuse patient.[facility] the event this information is protected by the Federal Confidentiality of Alcohol and Drug Abuse Patient Records regulations: The Federal rules restrict any use of the information to criminally investigate or prosecute any alcohol or drug abuse patient.[facility] the event this information is protected by the Federal Confidentiality of Alcohol and Drug Abuse Patient Records regulations: The Federal rules restrict any use of the information to criminally investigate or prosecute any alcohol or drug abuse patient.[facility] the event this information is protected by the Federal Confidentiality of Alcohol and Drug Abuse Patient Records regulations: The Federal rules restrict any use of the information to criminally investigate or prosecute any alcohol or drug abuse patient.[facility] the event this information is protected by the Federal Confidentiality of Alcohol and Drug Abuse Patient Records regulations: The Federal rules restrict any use of the information to criminally investigate or prosecute any alcohol or drug abuse patient.[facility] the event this information is protected by the Federal Confidentiality of Alcohol and Drug Abuse Patient Records regulations: The Federal rules restrict any use of the information to criminally investigate or prosecute any alcohol or drug abuse patient.[facility] the event this information is protected by the Federal Confidentiality of Alcohol and Drug Abuse Patient Records regulations: The Federal rules restrict any use of the information to criminally investigate or prosecute any alcohol or drug abuse patient.[facility] the event this information is protected by the Federal Confidentiality of Alcohol and Drug Abuse Patient Records regulations: The Federal rules restrict any use of the information to criminally investigate or prosecute any alcohol or drug abuse patient.[facility] the event this information is protected by the Federal Confidentiality of Alcohol and Drug Abuse Patient Records regulations: The Federal rules restrict any use of the information to criminally investigate or prosecute any alcohol or drug abuse patient.[facility] the event this information is protected by the Federal Confidentiality of Alcohol and Drug Abuse Patient Records regulations: The Federal rules restrict any use of the information to criminally investigate or prosecute any alcohol or drug abuse patient.[facility] the event this information is protected by the Federal Confidentiality of Alcohol and Drug Abuse Patient Records regulations: The Federal rules restrict any use of the information to criminally investigate or prosecute any alcohol or drug abuse patient.[facility] the event this information is protected by the Federal Confidentiality of Alcohol and Drug Abuse Patient Records regulations: The Federal rules restrict any use of the information to criminally investigate or prosecute any alcohol or drug abuse patient.[facility] the event this information is protected by the Federal Confidentiality of Alcohol and Drug Abuse Patient Records regulations: The Federal rules restrict any use of the information to criminally investigate or prosecute any alcohol or drug abuse patient.[facility] the event this information is protected by the Federal Confidentiality of Alcohol and Drug Abuse Patient Records regulations: The Federal rules restrict any use of the information to criminally investigate or prosecute any alcohol or drug abuse patient.[facility] the event this information is protected by the Federal Confidentiality of Alcohol and Drug Abuse Patient Records regulations: The Federal rules restrict any use of the information to criminally investigate or prosecute any alcohol or drug abuse patient.[facility] the event this information is protected by the Federal Confidentiality of Alcohol and Drug Abuse Patient Records regulations: The Federal rules restrict any use of the information to criminally investigate or prosecute any alcohol or drug abuse patient.[facility] the event this information is protected by the Federal Confidentiality of Alcohol and Drug Abuse Patient Records regulations: The Federal rules restrict any use of the information to criminally investigate or prosecute any alcohol or drug abuse patient.[facility] CenterIn the event this information is protected by the Federal Confidentiality of Alcohol and Drug Abuse Patient Records regulations: The Federal rules restrict any use of the information to criminally investigate or prosecute any alcohol or drug abuse patient.[facility] CenterIn the event this information is protected by the Federal Confidentiality of Alcohol and Drug Abuse Patient Records regulations: The Federal rules restrict any use of the information to criminally investigate or prosecute any alcohol or drug abuse patient.[facility] CenterIn the event this information is protected by the Federal Confidentiality of Alcohol and Drug Abuse Patient Records regulations: The Federal rules restrict any use of the information to criminally investigate or prosecute any alcohol or drug abuse patient.[facility] CenterIn the event this information is protected by the Federal Confidentiality of Alcohol and Drug Abuse Patient Records regulations: The Federal rules restrict any use of the information to criminally investigate or prosecute any alcohol or drug abuse patient.[facility] CenterIn the event this information is protected by the Federal Confidentiality of Alcohol and Drug Abuse Patient Records regulations: The Federal rules restrict any use of the information to criminally investigate or prosecute any alcohol or drug abuse patient.[facility] CenterIn the event this information is protected by the Federal Confidentiality of Alcohol and Drug Abuse Patient Records regulations: The Federal rules restrict any use of the information to criminally investigate or prosecute any alcohol or drug abuse patient.[facility] the event this information is protected by the Federal Confidentiality of Alcohol and Drug Abuse Patient Records regulations: The Federal rules restrict any use of the information to criminally investigate or prosecute any alcohol or drug abuse patient.[facility] CenterIn the event this information is protected by the Federal Confidentiality of Alcohol and Drug Abuse Patient Records regulations: The Federal rules restrict any use of the information to criminally investigate or prosecute any alcohol or drug abuse patient.[facility] CenterIn the event this information is protected by the Federal Confidentiality of Alcohol and Drug Abuse Patient Records regulations: The Federal rules restrict any use of the information to criminally investigate or prosecute any alcohol or drug abuse patient.[facility] CenterIn the event this information is protected by the Federal Confidentiality of Alcohol and Drug Abuse Patient Records regulations: The Federal rules restrict any use of the information to criminally investigate or prosecute any alcohol or drug abuse patient.[facility] CenterIn the event this information is protected by the Federal Confidentiality of Alcohol and Drug Abuse Patient Records regulations: The Federal rules restrict any use of the information to criminally investigate or prosecute any alcohol or drug abuse patient.[facility] CenterIn the event this information is protected by the Federal Confidentiality of Alcohol and Drug Abuse Patient Records regulations: The Federal rules restrict any use of the information to criminally investigate or prosecute any alcohol or drug abuse patient.[facility] CenterIn the event this information is protected by the Federal Confidentiality of Alcohol and Drug Abuse Patient Records regulations: The Federal rules restrict any use of the information to criminally investigate or prosecute any alcohol or drug abuse patient.[facility] CenterIn the event this information is protected by the Federal Confidentiality of Alcohol and Drug Abuse Patient Records regulations: The Federal rules restrict any use of the information to criminally investigate or prosecute any alcohol or drug abuse patient.[facility] CenterIn the event this information is protected by the Federal Confidentiality of Alcohol and Drug Abuse Patient Records regulations: The Federal rules restrict any use of the information to criminally investigate or prosecute any alcohol or drug abuse patient.[facility] CenterIn the event this information is protected by the Federal Confidentiality of Alcohol and Drug Abuse Patient Records regulations: The Federal rules restrict any use of the information to criminally investigate or prosecute any alcohol or drug abuse patient.[facility] CenterIn the event this information is protected by the Federal Confidentiality of Alcohol and Drug Abuse Patient Records regulations: The Federal rules restrict any use of the information to criminally investigate or prosecute any alcohol or drug abuse patient.[facility] CenterIn the event this information is protected by the Federal Confidentiality of Alcohol and Drug Abuse Patient Records regulations: The Federal rules restrict any use of the information to criminally investigate or prosecute any alcohol or drug abuse patient.[facility] CenterIn the event this information is protected by the Federal Confidentiality of Alcohol and Drug Abuse Patient Records regulations: The Federal rules restrict any use of the information to criminally investigate or prosecute any alcohol or drug abuse patient.[facility] CenterIn the event this information is protected by the Federal Confidentiality of Alcohol and Drug Abuse Patient Records regulations: The Federal rules restrict any use of the information to criminally investigate or prosecute any alcohol or drug abuse patient.[facility] CenterIn the event this information is protected by the Federal Confidentiality of Alcohol and Drug Abuse Patient Records regulations: The Federal rules restrict any use of the information to criminally investigate or prosecute any alcohol or drug abuse patient.[facility] CenterIn the event this information is protected by the Federal Confidentiality of Alcohol and Drug Abuse Patient Records regulations: The Federal rules restrict any use of the information to criminally investigate or prosecute any alcohol or drug abuse patient.[facility] CenterIn the event this information is protected by the Federal Confidentiality of Alcohol and Drug Abuse Patient Records regulations: The Federal rules restrict any use of the information to criminally investigate or prosecute any alcohol or drug abuse patient.[facility] CenterIn the event this information is protected by the Federal Confidentiality of Alcohol and Drug Abuse Patient Records regulations: The Federal rules restrict any use of the information to criminally investigate or prosecute any alcohol or drug abuse patient.[facility] CenterIn the event this information is protected by the Federal Confidentiality of Alcohol and Drug Abuse Patient Records regulations: The Federal rules restrict any use of the information to criminally investigate or prosecute any alcohol or drug abuse patient.[facility] CenterIn the event this information is protected by the Federal Confidentiality of Alcohol and Drug Abuse Patient Records regulations: The Federal rules restrict any use of the information to criminally investigate or prosecute any alcohol or drug abuse patient.[facility] CenterIn the event this information is protected by the Federal Confidentiality of Alcohol and Drug Abuse Patient Records regulations: The Federal rules restrict any use of the information to criminally investigate or prosecute any alcohol or drug abuse patient.[facility] CenterIn the event this information is protected by the Federal Confidentiality of Alcohol and Drug Abuse Patient Records regulations: The Federal rules restrict any use of the information to criminally investigate or prosecute any alcohol or drug abuse patient.[facility] CenterIn the event this information is protected by the Federal Confidentiality of Alcohol and Drug Abuse Patient Records regulations: The Federal rules restrict any use of the information to criminally investigate or prosecute any alcohol or drug abuse patient.[facility] CenterIn the event this information is protected by the Federal Confidentiality of Alcohol and Drug Abuse Patient Records regulations: The Federal rules restrict any use of the information to criminally investigate or prosecute any alcohol or drug abuse patient.[facility] CenterIn the event this information is protected by the Federal Confidentiality of Alcohol and Drug Abuse Patient Records regulations: The Federal rules restrict any use of the information to criminally investigate or prosecute any alcohol or drug abuse patient.[facility] CenterIn the event this information is protected by the Federal Confidentiality of Alcohol and Drug Abuse Patient Records regulations: The Federal rules restrict any use of the information to criminally investigate or prosecute any alcohol or drug abuse patient.[facility] CenterIn the event this information is protected by the Federal Confidentiality of Alcohol and Drug Abuse Patient Records regulations: The Federal rules restrict any use of the information to criminally investigate or prosecute any alcohol or drug abuse patient.[facility] CenterIn the event this information is protected by the Federal Confidentiality of Alcohol and Drug Abuse Patient Records regulations: The Federal rules restrict any use of the information to criminally investigate or prosecute any alcohol or drug abuse patient.[facility] Reason for Visit (unrecogniz ed section and content) Specialty Diagnoses / Procedures Referred By Antione macias Referred To Contact Family Practice / FAMILY MEDICINE Diagnoses Open Celulitis blister/Possible UTI Procedures 4C EST Self Arnold Mcconnell MD [address] [place] [address] Referral ID Status Reason Start Date Expiration Date V isits Requested Visits Authorized [id number] Closed Financial Clearance Required - OON Payor [...] Follow Up 6 month Reason Comments Results 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 - Other Orders Reason Comments Consult UTI Reason Comments Follow Up Reason Comments Referral Request Thyroid Surgeon Reason Comments orders for medication infusion Reason Comments Non-Chemotherapy Treatment Specialty Diagnoses / Procedures Referred By Contac t Referred To Contact Diagnoses Other osteoporosis, unspecified pathological fracture presence Procedures INJECTION, ZOLEDRONIC ACID, 1 MG Hayden Flanagan MD [address] [place] [address] [facility] [address] [place] [address] Referral ID Status Reason Start Date Expiration Date V isits Requested Visits Authorized [id number] Authorized 09/13/2022 09/14/2023 1 1 Reason Onset [...] 60-74 MINUTES Hayden Flanagan MD [address] [place] [address] Referral ID Status Reason Start Date Expiration Date V isits Requested Visits Authorized [id number] Closed PCP Requested Referral 09/13/2022 09/13/2023 1 1 Reason Comments preop pacc / OR MM 02/08/23 Parathyroide ctomy Reason Onset Date Comments Refill Request 12/19/2022 Reason Comments New Knee Pain Reason Comments Anesthesia Consult Reason Comments Mammogram Order Reason Comments Follow Up Reason Comments Follow Up 4 month follow up Care Teams (unrecognized sec tion and content) Shank Sander Relationship Specialty Start Date End Date Shorty Teresa MD [address] [place], [place] [id number] PCP - General Family Practice 03/27/17 Shank Sander Relationship Specialty Start Date End Date Shorty Teresa MD [address] [place], [place] [id number] PCP - General Family Practice 03/27/17 Shank Sander Relationship Specialty Start Date End Date Shorty Teresa MD [address] [facility] [place] [address] PCP - General Family Practice 03/27/17 Shank Sander Relationship Specialty Start Date End Date Shorty Teresa MD [address] [facility] [place] [address] PCP - General Family Practice 03/27/17 Shank Sander Relationship Specialty Start Date End Date Shorty Teresa MD [address] [facility] [place] [address] PCP - General Family Practice 03/27/17 Shank Sander Relationship Specialty Start Date End Date Shorty Teresa MD [address] [facility] [place] [address] PCP - General Family Practice 03/27/17 Shank Sander Relationship Specialty Start Date End Date Shorty Teresa MD [address] [facility] [place] [address] PCP - General Family Practice 03/27/17 Shank Sander Relationship Specialty Start Date End Date Shorty Teresa MD [address] [facility] [place] [address] PCP - General Family Medicine 03/27/17 Shank Sander Relationship Specialty Start Date End Date Shorty Teresa MD [address] [facility] [place] [address] PCP - General Family Medicine 03/27/17 Shank Sander Relationship Specialty Start Date End Date Shorty Teresa MD [address] [facility] [place] [address] PCP - General Family Medicine 03/27/17 Shank Sander Relationship Specialty Start Date End Date Shorty Teresa MD [address] [facility] [place] [address] PCP - General Family Medicine 03/27/17 Shank Sander Relationship Specialty Start Date End Date Shorty Teresa MD [address] [facility] [place] [address] PCP - General Family Medicine 03/27/17 Shank Sander Relationship Specialty Start Date End Date Shorty Teresa MD [address] [facility] [place] [address] PCP - General Family Medicine 03/27/17 Shank Sander Relationship Specialty Start Date End Date Shorty Teresa MD [address] [facility] [place] [address] PCP - General Family Medicine 03/27/17 Shank Sander Relationship Specialty Start Date End Date Shorty Teresa MD [address] [facility] [place] [address] PCP - General Family Medicine 03/27/17 Shank Sander Relationship Specialty Start Date End Date Shorty Teresa MD [address] [facility] [place] [address] PCP - General Family Medicine 03/27/17 Shank Sander Relationship Specialty Start Date End Date Shorty Teresa MD [address] [facility] [place] [address] PCP - General Family Medicine 03/27/17 Shank Sander Relationship Specialty Start Date End Date Shorty Teresa MD [address] [facility] [place] [address] PCP - General Family Medicine 03/27/17 Shank Sander Relationship Specialty Start Date End Date Shorty Teresa MD [address] [facility] [place] [address] PCP - General Family Medicine 03/27/17 Shank Sander Relationship Specialty Start Date End Date Shorty Teresa MD [address] [facility] [place] [address] PCP - General Family Medicine 03/27/17 Shank Sander Relationship Specialty Start Date End Date Shorty Teresa MD [address] [facility] [place] [address] PCP - General Family Medicine 03/27/17 Shank Sander Relationship Specialty Start Date End Date Shorty Teresa MD [address] [facility] [place] [address] PCP - General Family Medicine 03/27/17 Shank Sander Relationship Specialty Start Date End Date Shorty Teresa MD [address] [facility] [place] [address] PCP - General Family Medicine 03/27/17 Shank Sander Relationship Specialty Start Date End Date Shorty Teresa MD [address] [facility] [place] [address] PCP - General Family Medicine 03/27/17 Shank Sander Relationship Specialty Start Date End Date Shorty Teresa MD [address] [facility] [place] [address] PCP - General Family Medicine 03/27/17 Shank Sander Relationship Specialty Start Date End Date Shorty Teresa MD [address] [facility] [place] [address] PCP - General Family Medicine 03/27/17 Shank Sander Relationship Specialty Start Date End Date Shorty Teresa MD [address] [facility] [place] [address] PCP - General Family Medicine 03/27/17 Shank Sander Relationship Specialty Start Date End Date Shorty Teresa MD [address] [facility] [place] [address] PCP - General Family Medicine 03/27/17 Shank Sander Relationship Specialty Start Date End Date Shorty Teresa MD [address] [place] [address] PCP - General Family Medicine 03/27/17 Shank Sander Relationship Specialty Start Date End Date Shorty Teresa MD [address] [place] [address] PCP - General Family Medicine 03/27/17 Shank Sander Relationship Specialty Start Date End Date Shorty Teresa MD [address] [place] [address] PCP - General Family Medicine 03/27/17 Shank Sander Relationship Specialty Start Date End Date Shorty Teresa MD [address] [place] [address] PCP - General Family Medicine 03/27/17 Shank Sander Relationship Specialty Start Date End Date Shorty Teresa MD [address] [place] [address] PCP - General Family Medicine 03/27/17 Shank Sander Relationship Specialty Start Date End Date Shorty Teresa MD [address] [place] [address] PCP - General Family Medicine 03/27/17 Shank Sander Relationship Specialty Start Date End Date Shorty Teresa MD [address] [place] [address] PCP - General Family Medicine 03/27/17 Shank Sander Relationship Specialty Start Date End Date Shorty Teresa MD [address] [place] [address] PCP - General Family Medicine 03/27/17 Shank Sander Relationship Specialty Start Date End Date Shorty Teresa MD [address] [place], [place] [address] PCP - General Family Medicine 03/27/17 Shank Sander Relationship Specialty Start Date End Date Shorty Teresa MD [address] [place], [place] [address] PCP - General Family Medicine 03/27/17 Shank Sander Relationship Specialty Start Date End Date Shorty Teresa MD [address] [place], [place] [address] PCP - General Family Medicine 03/27/17 FOR [...] BE BASED ON THE PRIMARY CLINICAL RECORDS. [facility] [employer] [facility]. provides no warranty or guarantee of the accuracy or completeness of information in this document.
[2023-07-28 22:14] VITALS: BP 164/68; PULSE 87; RESP 16; O2SAT 95
[2023-07-28 22:20] VITALS: BP 150/81; PULSE 94; RESP 16; TEMP 36.8; O2SAT 95
[2023-07-28 22:35] VITALS: BMI 38.9
--- OUTSIDE RECORDS SUMMARY | 2023-07-28 22:43 | XMS RPT_ITS | CCD ---
Author Name Unknown Address [address] [place] [address] Organization [facility] Care Team Providers Care 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 Service Supervisor Name Role Phone Shorty Teresa MD Primary [...] Translations: [METRONIDAZOLE] Drug Allergy 7 GI Upset [facility] (6 sources) Thiazides; Translations: [THIAZIDES] Drug Intolerance 6 Other: See Comments [facility] (20 sources) Thiazides Drug Intolerance 6 Other: See Comments [facility] Medications Current Medications Medication Drug Class(es) [...] 92.99 kg Kassandra Sharma APRN.CNP Work Phone: [facility] 06-19-2023 13:42-0500 Diastolic blood pressure 80 mm[Hg] Kassandra Sharma APRN.CNP Work Phone: [facility] 06-19-2023 13:42-0500 Heart rate 90 /min Kassandra Sharma APRN.CNP Work Phone: [facility] 06-19-2023 13:42-0500 Respiratory rate 18 /min Kassandra Podlogar FLAT BED KNITTER.BIRD TRAPPER Work Phone: [facility] 06-19-2023 13:42-0500 SaO2% (BldA) [Mass fraction] 91 % Kassandra Podlogar FLAT BED KNITTER.BIRD TRAPPER Work Phone: [facility] 06-19-2023 13:42-0500 Systolic blood pressure 136 mm[Hg] Kassandra Podlogar FLAT BED KNITTER.BIRD TRAPPER Work Phone: [facility] 05-29-2023 16:09-0500 Body height 152.4 cm Hayden Flanagan MD Work Phone: [facility] 05-29-2023 16:09-0500 Body weight 94.6 kg Hayden Flanagan MD Work Phone: [facility] 05-29-2023 16:09-0500 Diastolic blood pressure 75 mm[Hg] Hayden Flanagan MD Work Phone: [facility] 05-29-2023 16:09-0500 Heart rate 95 /min Hayden Flanagan MD Work Phone: [facility] 05-29-2023 16:09-0500 SaO2% (BldA) [Mass fraction] 96 % Hayden Flanagan MD Work Phone: [facility] 05-29-2023 16:09-0500 Systolic blood pressure 135 mm[Hg] Hayden Flanagan MD Work Phone: [facility] 01-31-2023 10:40-0400 SaO2% (BldA) [Mass fraction] 97 % Pacc 2 Work Phone: [facility] 01-31-2023 09:43-0400 Body height 152.4 cm Pacc 2 Work Phone: [facility] 01-31-2023 09:43-0400 Body temperature 97.59 [degF] Pacc 2 Work Phone: [facility] 01-31-2023 09:43-0400 Body weight 94.44 kg Pacc 2 Work Phone: [facility] 01-31-2023 09:43-0400 Diastolic blood pressure 69 mm[Hg] Pacc 2 Work Phone: [facility] 01-31-2023 09:43-0400 Heart rate 81 /min Pacc 2 Work Phone: [facility] 01-31-2023 09:43-0400 Respiratory rate 17 /min Pacc 2 Work Phone: [facility] 01-31-2023 09:43-0400 Systolic blood pressure 142 mm[Hg] Pacc 2 Work Phone: [facility] 11-26-2022 13:34-0400 Diastolic blood pressure 65 mm[Hg] Leydi Vance MD Work Phone: [facility] 11-26-2022 13:34-0400 Heart rate 81 /min Leydi Vance MD Work Phone: [facility] 11-26-2022 13:34-0400 Systolic blood pressure 125 mm[Hg] Leydi Vance MD Work Phone: [facility] 11-13-2022 14:02-0400 Diastolic blood pressure 72 mm[Hg] Shorty Teresa MD Work Phone: [facility] 11-13-2022 14:02-0400 Heart rate 88 /min Shorty Teresa MD Work Phone: [facility] 11-13-2022 14:02-0400 Respiratory rate 16 /min Shorty Teresa MD Work Phone: [facility] 11-13-2022 14:02-0400 SaO2% (BldA) [Mass fraction] 96 % Shorty Teresa MD Work Phone: [facility] 11-13-2022 14:02-0400 Systolic blood pressure 138 mm[Hg] Shorty Teresa MD Work Phone: [facility] 09-12-2022 16:15-0500 Body height 152.4 cm Hayden Flanagan MD Work Phone: [facility] 09-12-2022 16:15-0500 Body weight 92.44 kg Hayden Flanagan MD Work Phone: [facility] 09-12-2022 16:15-0500 Diastolic blood pressure 75 mm[Hg] Hayden Flanagan MD Work Phone: [facility] 09-12-2022 16:15-0500 Heart rate 87 /min Hayden Flanagan MD Work Phone: [facility] 09-12-2022 16:15-0500 SaO2% (BldA) [Mass fraction] 97 % Hayden Flanagan MD Work Phone: [facility] 09-12-2022 16:15-0500 Systolic blood pressure 135 mm[Hg] Hayden Flanagan MD Work Phone: [facility] 08-17-2022 15:34-0500 Body height 152.4 cm Blayne Roldan PA-C Work Phone: [facility] 08-17-2022 15:34-0500 Body temperature 97.59 [degF] Blayne Roldan PA-C Work Phone: [facility] 08-17-2022 15:34-0500 Body weight 89.36 kg Blayne Roldan PA-C Work Phone: [facility] 08-17-2022 15:34-0500 Diastolic blood pressure 68 mm[Hg] Blayne Roldan PA-C Work Phone: [facility] 08-17-2022 15:34-0500 Heart rate 104 /min Blayne Roldan PA-C Work Phone: [facility] 08-17-2022 15:34-0500 Respiratory rate 16 /min Blayne Roldan PA-C Work Phone: [facility] 08-17-2022 15:34-0500 SaO2% (BldA) [Mass fraction] 97 % Blayne Roldan PA-C Work Phone: [facility] 08-17-2022 15:34-0500 Systolic blood pressure 144 mm[Hg] Blayne Roldan PA-C Work Phone: [facility] 08-13-2022 16:03-0500 Diastolic blood pressure 78 mm[Hg] Shorty Teresa MD Work Phone: [facility] 08-13-2022 16:03-0500 Systolic blood pressure 138 mm[Hg] Shorty Teresa MD Work Phone: [facility] 08-13-2022 15:16-0500 Body weight 89.45 kg Shorty Teresa MD Work Phone: [facility] 08-13-2022 15:16-0500 Heart rate 91 /min Shorty Teresa MD Work Phone: [facility] 08-13-2022 15:16-0500 Respiratory rate 18 /min Shorty Teresa MD Work Phone: [facility] 08-13-2022 15:16-0500 SaO2% (BldA) [Mass fraction] 97 % Shorty Teresa MD Work Phone: [facility] 07-26-2022 18:35-0500 Body temperature 98.01 [degF] Donnell Braden MD Work Phone: [facility] 07-26-2022 18:35-0500 Body weight 84.37 kg Donnell Braden MD Work Phone: [facility] 07-26-2022 18:35-0500 Diastolic blood pressure 84 mm[Hg] Donnell Braden MD Work Phone: [facility] 07-26-2022 18:35-0500 Heart rate 62 /min Donnell Braden MD Work Phone: [facility] 07-26-2022 18:35-0500 Respiratory rate 18 /min Donnell Braden MD Work Phone: [facility] 07-26-2022 18:35-0500 SaO2% (BldA) [Mass fraction] 95 % Donnell Braden MD Work Phone: [facility] 07-26-2022 18:35-0500 Systolic blood pressure 138 mm[Hg] Donnell Braden MD Work Phone: [facility] 07-09-2022 18:01-0500 Body temperature 97.81 [degF] Elly Athy PA-C Work Phone: [facility] 07-09-2022 18:01-0500 Body weight 84.37 kg Elly Athy PA-C Work Phone: [facility] 07-09-2022 18:01-0500 Diastolic blood pressure 86 mm[Hg] Elly Athy PA-C Work Phone: [facility] 07-09-2022 18:01-0500 Heart rate 89 /min Elly Athy PA-C Work Phone: [facility] 07-09-2022 18:01-0500 Respiratory rate 20 /min Elly Athy PA-C Work Phone: [facility] 07-09-2022 18:01-0500 SaO2% (BldA) [Mass fraction] 95 % Elly Athy PA-C Work Phone: [facility] 07-09-2022 18:01-0500 Systolic blood pressure 158 mm[Hg] Elly Athy PA-C Work Phone: [facility] 12-05-2021 19:23-0400 Body weight 83.83 kg Shorty Teresa MD Work Phone: [facility] 12-05-2021 19:23-0400 Diastolic blood pressure 58 mm[Hg] Shorty Teresa MD Work Phone: [facility] 12-05-2021 19:23-0400 Heart rate 80 /min Shorty Teresa MD Work Phone: [facility] 12-05-2021 19:23-0400 Respiratory rate 18 /min Shorty Teresa MD Work Phone: [facility] 12-05-2021 19:23-0400 SaO2% (BldA) [Mass fraction] 96 % Shorty Teresa MD Work Phone: [facility] 12-05-2021 19:23-0400 Systolic blood pressure 110 mm[Hg] Shorty Teresa MD Work Phone: [facility] Encounters Encounter Date Encounter Type Care Provider Facility Start: 07-23-2023 End: 07-24-2023 ambulatory SHORTY TERESA Facility:[facility] Start: 06-19-2023 End: 06-20-2023 ambulatory SHORTY TERESA Facility:[facility] Start: 06-19-2023 End: 06-19-2023 Patient encounter procedure Kassandra Podlogthomas FLAT BED KNITTER.BIRD TRAPPER Work Phone: [facility] Procedures Date Procedure Procedure Detail Performing Clinician Start: 06-19-2023 [employer] COVI D-19 VACCINE (2022- [place]) AGE 12+ YR Kassandra Reidlogthomas FLAT BED KNITTER.BIRD TRAPPER Work Phone: Start: 05-29-2023 INFLUENZA VACCINE, P [...] et rgnt auto w/o microscopy Keesha Glasgowgs FLAT BED KNITTER.BIRD TRAPPER Work Phone: Start: 07-09-2022 Urnls dip stick/tabl et rgnt auto w/o microscopy Ericka James FLAT BED KNITTER.BIRD TRAPPER Work Phone: Start: 04-26-2022 Mammography Mammograph y [...] - S prince or Plasma Lipid Screening [facility] Start: 01-31-2027 LIPID SCREEN LIPID SCREEN [facility] Start: 10-09-2026 Urine microalbumin profile [facility] Start: 01-31-2026 DIABETES SCREEN [facility] Start: 01-31-2026 Diabetes Screening Diabetes Screenin g [facility] Start: 09-21-2025 DIABETES SCREEN DIABETES SCREEN [facility] Start: 09-05-2025 DIABETES SCREEN DIABETES SCREEN [facility] Start: 08-13-2025 DIABETES SCREEN DIABETES SCREEN [facility] Start: 04-12-2025 DIABETES SCREEN DIABETES SCREEN [facility] Start: 02-24-2025 Colonoscopy COLONOSCOPY [facility] Start: 02-24-2025 COLORECTAL CANCER SCREENING COLORECTAL CANCER SCREENING [facility] Start: 01-31-2025 DIABETES SCREEN DIABETES SCREEN [facility] Start: 09-11-2024 DIABETES SCREEN DIABETES SCREEN [facility] Start: 08-27-2024 LIPID SCREEN LIPID SCREEN [facility] Start: 02-13-2024 SHINGRIX VACCINE (1 of 2) VEGA GRIX VACCINE (1 of 2) [facility] Immunizations Immunization Date Immunization Notes Care Provider Feliciano chin 06-19-2023 COVID-19 vaccine, ag e 12+ yr, season (PFIZER-BIONTECH) Kassandra Sharma APRN.BIRD TRAPPER Work Phone: [facility] 05-29-2023 influenza (HD-IIV4) vaccine, age 65+ yr, high dose, quadrivalent, PF (FLUZONE HIGH-DOSE) Hayden Flanagan MD Work Phone: [facility] 02-12-2023 COVID-19 vaccine, ag e 12+ yr, bivalent (PFIZER-BIONTECH) Leydi Vance MD Work Phone: [facility] 05-10-2022 influenza (HD-IIV4) vaccine, age 65+ yr, high dose, quadrivalent, PF (FLUZONE HIGH-DOSE) Shorty Teresa MD Work Phone: [facility] 05-10-2022 influenza virus vaccine, unspecified formulation Shorty Teresa MD Work Phone: [facility] 04-19-2021 influenza, high-dose , quadrivalent vaccine (FLUZONE HIGH DOSE QUADRIVALENT) Shorty Teresa MD Work Phone: [facility] 05-12-2020 influenza, high-dose , quadrivalent vaccine (FLUZONE HIGH DOSE QUADRIVALENT) Shorty Teresa MD Work Phone: [facility] 07-02-2019 influenza, high dose seasonal, preservative-free Shorty Teresa MD Work Phone: [facility] 04-23-2018 influenza, seasonal, injectable, preservative free Shorty Teresa MD Work Phone: [facility] Work Phone: 03-26-2018 influenza, high dose seasonal, preservative-free Shorty Teresa MD Work Phone: [facility] 03-30-2017 influenza, high dose seasonal, preservative-free Shorty Teresa MD Work Phone: [facility] 10-09-2016 tetanus toxoid, redu donna diphtheria toxoid, and acellular pertussis vaccine, adsorbed Shorty Teresa MD Work Phone: [facility] 05-08-2016 pneumococcal polysaccharide vaccine, 23 valent Shorty Teresa MD Work Phone: [facility] 04-13-2016 influenza, high dose seasonal, preservative-free Shorty Teresa MD Work Phone: [facility] 04-22-2015 influenza, high dose seasonal, preservative-free Shorty Teresa MD Work Phone: [facility] 09-07-2014 pneumococcal conjuga te vaccine, 13 valent Shorty Teresa MD Work Phone: [facility] 04-22-2010 pneumococcal polysaccharide vaccine, 23 valent Shorty Teresa MD Work Phone: [facility] 08-05-2006 TD(adult) unspecifie d formulation Shorty Teresa MD Work Phone: [facility] 08-05-2006 tetanus and diphther ia toxoids, adsorbed, preservative free, for adult use (2 Lf of tetanus toxoid and 2 Lf of diphtheria toxoid) Shorty Teresa MD Work Phone: [facility] 07-18-1998 diphtheria and tetan us toxoids, adsorbed for pediatric use Shorty Teresa MD Work Phone: [facility] Work Phone: Payers Date Payer Category Payer Medicaid UHC MEDICAID [facility] MEDICAID [id number] 2019-Present [phone] [address] [place] [address] Medicaid [id number] 2019 Medicaid UHC MEDICAID [facility] MEDICAID [id number] 2019-Present [phone] [address] [place] [address] Medicaid [id number] 2019 Medicaid [id number] 2017 Medicare [facility] DUAL [facility]TE H[facility] SNP [id number] 2017-Present [phone] [address] [place] [address] Medicare [id number] 2017 Medicare [id number] 2017 Unknown [id number] Social History Date Type Detail Facility Start: 02-07-2012 Tobacco smoking stat [facility] Never smoked tobacco [facility] Start: 12-05-2021 End: 06-19-2023 Alcohol intake Current non-drinker of alcohol (finding) [facility] Start: 1950 Sex Assigned At Not on file [facility] Start: 11-24-2021 End: 04-26-2022 Exposure to SARS-CoV-2 (event) Not sure [facility] Work Phone: Start: 02-07-2012 Tobacco use and exposure Smokeless tobacco non-user [facility] Start: 11-26-2022 End: 01-31-2023 History of Social function [facility] Work Phone: Start: 11-26-2022 End: 01-31-2023 Tobacco use panel [facility] Work Phone: Adult Depression Screening Assessment 0 [facility] Work Phone: Medical Equipment Procedure Code Equipment Code Equipment Origin al Text Equipment Identifier Dates Reymundo Bn Smpx P Ra dpq Fd Strl - [id number] Start: 03-17-2014 Bassam-C Ale G ast W/Disect - [id number] Start: 04-21-2010 Clinical Notes 10-11-2017 to 07-23-2023 Kassandra Sharma, FLAT BED KNITTER.BIRD TRAPPER - 06/19/2023 1:48 PM ESTPatient Hayden Jenkins MD - 05/29/2023 4:11 PM ESTLetter - Coordinator, Mammography - 05/17/2023 11:15 AM EDT Note Date & Type Note Facility 07-23-2023 Note HNO ID: [id number] Author: Pastora Bell RT(R) Service: Radiology Author [...] RT Debbi(R) July 23, 2023 7:16 PM [facility] 07-23-2023 Note HNO ID: [id number] Author: Shorty Teresa MD Service: ? Author [...] DEVICE 04/21/2010 Performed by THI ALCOCER at [facility] LAPS RPR PARAESPHGL HRNA INCL FUNDPLSTY W/O MESH 04/21/2010 Performed by THI ALCOCER at [facility] MAL LESION FACE,EAR,EYEL 1.1-2CM 01/28/06 Left cheek and right forearm lesions PAST SURGICAL HISTORY OF July 06, 2009 Hysteroscopy DANNJ PAST SURGICAL HISTORY OF 10/2017 vaginal vault suspension PAST SURGICAL HISTORY OF 10/2017 Lap band removed UNLIS LAPAROSCOPIC PROCEDURE LIVER 04/21/2010 Performed by THI ALCOCER at [facility] Family History FAMILY HISTORY Problem Relation Age [...] once daily. HYDROcodone-a (more content not included)... [facility] 06-19-2023 Note HNO ID: [id number] Author: Kassandra Sharma APRN.LENA Service: ? Author [...] bladder infection SCC (squamous cell carcinoma) Stroke ([facility]) 12/06/1981 cva left side residual, young at [...] every 6 hours as needed for pain. raciphc-tqbtasfye-qpbwmhz D3 500 mg-5 mcg (200 unit) per [...] AND Units 01/31/2023 (more content not included)... [facility] 06-19-2023 History of Present illness Narrative [...] every 6 hours as needed for pain. embzzao-cpjnajdga-jgrsbvz D3 500 mg-5 mcg (200 unit) per [...] Abs Lymph 1.00 - 4.00 k/uL 1.99 Clark% % 8.0 Abs Clark <0.87 k/uL 0.57 Eosin% % 4.2 Abs [...] due - ICD9: V05.9, ICD10: Z23 - [employer] COVID-19 VACCINE (2022- [place]) AGE 12+ YR [...] calories and exercise as well. Kassandra Sharma APRN.BIRD TRAPPER Prescription instructions reviewed with patient as applicable. [...] which included preparing to see the patient, arti-kg-iada patient care, completing clinical documentation, obtaining and/or reviewing separately obtained history, performing a medically appropriate examination, counseling and educating the patient/family/caregiver, and ordering medications, tests, or procedures. documented in this encounter [facility] 05-29-2023 Note HNO ID: [id number] Author: Hayden Flanagan MD Service: ? Author [...] bladder infection SCC (squamous cell carcinoma) Stroke ([facility]) 12/06/1981 cva left side residual, young at [...] DEVICE 04/21/2010 Performed by THI ALCOCER at [facility] LAPS RPR PARAESPHGL HRNA INCL FUNDPLSTY W/O MESH 04/21/2010 Performed by THI ALCOCER at [facility] MAL LESION FACE,EAR,EYEL 1.1-2CM 01/28/06 Left cheek and right forearm lesions PAST SURGICAL HISTORY OF July 06, 2009 Hysteroscopy [facility] PAST SURGICAL HISTORY OF 10/2017 vaginal vault suspension PAST SURGICAL HIST (more content not included)... [facility] 05-29-2023 Instructions Hayden Flanagan MD - 05/29/2023 4:26 PM EST - Continue the current calcium and vitamin D intake - Blood tests in July as planned - Repeat bone density scan on or after 09/12/2023 - I will see you in October 2023 and will decide on the Reclast infusion documented in this encounter [facility] 05-29-2023 History of Present illness Narrative [...] site back GERD (gastroesophageal reflux disease) Hyperparathyroidism ([facility]) s/p parathyroidectomy 02/08/2023 Insomnia Knee pain, chronic Lumbago Migraine without aura on diltiazem Obesity, unspecified stated BMI 40.5 HT: 61.5 WT: 220 Osteopenia of multiple sites Overactive bladder Personal history of unspecified urinary disorder years ago since last bladder infection SCC (squamous cell carcinoma) Stroke ([facility]) 12/06/1981 cva left side residual, young at [...] DEVICE 04/21/2010 Performed by THI ALCOCER at [facility] LAPS RPR PARAESPHGL HRNA INCL FUNDPLSTY W/O MESH 04/21/2010 Performed by THI ALCOCER at [facility] MAL LESION FACE,EAR,EYEL 1.1-2CM 01/28/06 Left cheek and right forearm lesions PAST SURGICAL HISTORY OF July 06, 2009 Hysteroscopy D&C PAST SURGICAL HISTORY OF 10/2017 vaginal vault suspension PAST SURGICAL HISTORY OF 10/2017 Lap band removed UNLIS LAPAROSCOPIC PROCEDURE LIVER 04/21/2010 Performed by THI ALCOCER at [facility] Medications Current Outpatient Medications Medication Sig gabapentin [...] needed (mouth or hand numbness or tingling). dkfzlbx-edwwhvvkf-cyjelxh D3 500 mg-5 mcg (200 unit) per [...] Decision Making Level: 4 - Moderate Hayden Flanagna MD documented in this encounter [facility] 05-28-2023 Note HNO ID: [id number] Author: Arnol Jonas MD Service: ? Author Type: Physician Type: Progress Notes Filed: 05/28/2023 4:33 PM Note Text: Janay is here for Durolane injection in the right knee. History and physical exam unchanged. Large Joint Arthro/Inj: R knee joint Informed Consent Consent Obtained: Verbal Ward Protocol A moment to CARE was completed. [...] which included preparing to see the patient, nmdm-ia-hebs patient care, completing clinical documentation, obtaining and/or reviewing separately obtained history, performing a medically appropriate examination, counseling and educating the patient/family/caregiver. Arnol Jonas MD Orthopaedic Surgery [facility] 05-17-2023 Miscellaneous Notes May 17, 2023 PID: [id number] Janay Frederick [address] [place] [address] Dear Ms. Frederick, We are pleased to [...] report will be kept on file at [facility] as part of your permanent medical record and are available for your continuing care. Thank you for allowing us to help in meeting your health care needs. Sincerely, Dr. Richardson Interpreting Radiologist [facility] (Normal over 40) documented in this encounter [facility] 05-16-2023 Note HNO ID: [id number] Author: Kathleen Hoffmann Mammo Tech Service: ? Author Type: Hosting Engineer Type: Progress Notes Filed: 05/16/2023 3:03 PM [...] Shruthi Neville May 16, 2023 2:39 PM [facility] 05-16-2023 History of Present illness Narrative [...] DATA: Not applicable SIGNED BY: Kathleen Hoffmann Yuanfen~Flow™ May 16, 2023 2:39 PM documented in this encounter [facility] 04-12-2023 Miscellaneous Notes Patient notified. Marlene Loaiza LPN Order approved. Patient calls and states that she is due to have annual mammogram in April. Patient asking if provider can place order so that mammogram can be scheduled? Please review and advise, Tarsha Hernández RN documented in this encounter [facility] 03-20-2023 Miscellaneous Notes PDMP website checked [...] Payton Marie [employer] documented in this encounter [facility] 02-20-2023 Miscellaneous Notes Images from the [...] Leydi Vance MD documented in this encounter [facility] 02-12-2023 Note HNO ID: [id number] Author: Shorty Teresa MD Service: ? Author [...] back pain with last OV yesterday. Taking Monrovia as prescribed which is working well for [...] DEVICE 04/21/2010 Performed by THI ALCOCER at [facility] LAPS RPR PARAESPHGL HRNA INCL FUNDPLSTY W/O MESH 04/21/2010 Performed by THI ALCOCER at [facility] MAL LESION FACE,EAR,EYEL 1.1-2CM 01/28/06 Left cheek and right forearm lesions PAST SURGICAL HISTORY OF July 06, 2009 Hysteroscopy DANNJ PAST SURGICAL HISTORY OF 10/2017 vaginal vault suspension PAST SURGICAL HISTORY OF 10/2017 Lap band removed UNLIS LAPAROSCOPIC PROCEDURE LIVER 04/21/2010 Performed by THI ALCOCER at [facility] Family History FAMILY HISTORY Problem Relation Age [...] needed (mouth or hand numbness or tingling). rexkbfg-iyfpilogh-tlsowom D3 500 mg-5 mcg (200 unit) per [...] omeprazole (PRILOSEC) 40 (more content not included)... [facility] documented as of this encounter (statuses as of 06/20/2023) [facility]07-22-2023 NoteHNO ID: [id number] Author: Yanelis Diaz MD Service: General Surgery [...] Delgado MD 600 mg at 02/08/23 1858 eloncqg-xlvyxvgzd-lwcsxbg D3 500 mg-5 mcg (200 unit) 1 tablet 1 tablet ORAL TID Laura Delgado MD 1 tablet at 02/09/23 0753 calcium carbonate 500 mg chewable tab(s) (TUMS) 500 mg ORAL q 1 H PRN Laura Deglado MD 500 mg at 02/08/23 195 benzocaine-menthol 1 Lozenge (CHLORASEPTIC) 1 Lozenge MUCOUS MEMBRANE (TOPICAL MOUTH AND THROAT) q 2 H PRN Laura Delgado MD 1 Lozenge at 02/08/23 1544 phenol 1 [place] (CHLORASEPTIC) 1 [place] MUCOUS MEMBRANE (TOPICAL MOUTH AND THROAT) q [...] ORAL q 8 H PRN Macy Jameson APRN.BIRD TRAPPER 1 tablet at 02/09/23 0751 acetaminophen 500 mg tab(s) (TYLENOL) 500 mg ORAL q 4 H PRN Macy Jameson APRN.BIRD TRAPPER Date 02/08/23699 - 02/09/23 0659 02/09/23 07 - 02/10/23 0659 Shift [id number] 2223-7133 [id number] 24 Hour Total 0081-7659 2364-7630 0890-1443 24 Hour Total INTAKE IV 900 900 [...] Resident Date: February 09, 2023 Time: 8:08 [facility]07-21-2023 NoteHNO ID: [id number] Author: Laura Delgado MD Service: Endocrine Surgery [...] MD General Surgery PGY-4 Endocrine Surgery pager: [phone] S: No acute events since OR. No [...] 1 Lozenge at 02/08/23 1418 phenol 1 [place] (CHLORASEPTIC) 1 [place] MUCOUS MEMBRANE (TOPICAL MOUTH AND THROAT) q 2 H PRN Laura Delgado MD Date 02/07/23 07 - 02/08/23 0659(Not Admitted) 02/08/23 07 - 02/09/23 0659 Shift [id number] [id number] [id number] 24 Hour Total 9659-1201 1558-6054 6946-4494 24 Hour Total INTAKE IV 900 900 [...] developed and its performance characteristics determined by [facility]'s [facility] Pathology and Laboratory Medicine [place] ( [place]). It has not been cleared or approved by the FDA. [facility] is regulated under CLIA as qualified to [...] agrees to proceed with today?s plan of care.[facility]07-21-2023 NoteHNO ID: [id number] Author: Ita Tamez AA Service: ? Author Type: Data Entry Clerk Type: Anesthesia Procedure Notes Filed: 02/08/2023 12:00 PM Note Text: ANESTHESIOLOGY PROCEDURE NOTE Airway General Information Procedure Start Time/Medication Administration: 02/08/2023 11:47 AM Patient location during procedure: OR Timeout Performed Pre-procedure: timeout performed Consent Obtained: Yes Patient identity confirmed: arm band, care freight team associate and patient Staffing CAA: Ita Tamez AA [...] February 08, 2023 TIME: 11:59 AM CSN: [id number] NoteHNO ID: [id number] Author: Neva Chandler RN Service: Interventional Radiology [...] Frederick DATE: January 31, 2023 TIME: 12:51 [facility]07-13-2023 History of Present illness Narrative * [...] 2023 TIME: 12:51 PM documented in this encounterClinton [facility] Hospital07-13-2023 NoteHNO ID: [id number] Author: Bib Parra Tech Service: Nuclear Medicine Author Type: Hosting Engineer Type: Progress Notes Filed: 01/31/2023 1:59 PM [...] this link: [email or web address]%20Nuclear%20Medicine%20Procedures.[email or web address] SIGNATURE: Cathie Womack Remedify PATIENT NAME: Janay Frederick DATE: January 31, 2023 TIME: 1:58 PM PAGER/CONTACT #:[facility]07-13-2023 Instructions* Patient Instructions* Zelda Eric APRN.BIRD TRAPPER - 01/31/2023 10:57 AM EDT PATIENT PREOPERATIVE INSTRUCTIONS [facility]: [phone] -- [address] [place] [address]. Please read below carefully for your personalized [...] sip of water: atorvastatin (lipitor), diltiazem, gabapentin, Monrovia, omeprazole (prilosec), potassium chloride, and detrol. If [...] Procedures: - YOU MUST HAVE A RESPONSIBLE CS ASSOCIATE TAKE YOU HOME. A LONG HAUL TRUCK DRIVER OR CHANNEL PROCESS PLANT OPERATOR CANNOT BE MADE A RESPONSIBLE CS ASSOCIATE. - We recommend that a responsible person [...] Advance Directive, please fax a copy to [phone] or email to for it to be [...] day. Zelda Eric APRN.CNP documented in this encounterClinton [facility] Hospital07-13-2023 History and physical note * Zelda [...] >1 time per night and renal failure. 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 bleeding, abnormal vaginal [...] DEVICE 04/21/2010 Performed by THI ALCOCER at [facility] LAPS RPR PARAESPHGL HRNA INCL FUNDPLSTY W/O MESH 04/21/2010 Performed by THI ALCOCER at [facility] MAL LESION FACE,EAR,EYEL 1.1-2CM 01/28/06 Left cheek and right forearm lesions PAST SURGICAL HISTORY OF July 06, 2009 Hysteroscopy D&C PAST SURGICAL HISTORY OF 10/2017 vaginal vault suspension PAST SURGICAL HISTORY OF 10/2017 Lap band removed UNLIS LAPAROSCOPIC PROCEDURE LIVER 04/21/2010 Performed by THI ALCOCER at [facility] FAMILY HISTORY Problem Relation Age of Onset [...] naloxone 4 mg/actuation nasal spray (NARCAN) 1 [place] by nasal (alternating) route as needed for [...] 374 QTC Calculation (Bazett) 436 Calculated P [place] 38 Calculated R [place] 18 Calculated T [place] 49 Impression NORMAL SINUS RHYTHM POSSIBLE LEFT ATRIAL ENLARGEMENT BORDERLINE ECG No results found for this or any previous visit (from the past 33973 hour(s)). Assessment Patient has the following medical [...] large neck Non-male patient STOP-Bang Score: 2 [id number] Score: Age: 65-74 Sex: Female CHF history: No Hypertension history: No Stroke/TIA/thromboembolism history: Yes Vascular disease history: Yes Diabetes history: No [id number] Score: 5 ASA Class: 3 ANESTHESIA FINDINGS: [...] 9:42 AM PAGER/CONTACT #: documented in this encounterClinton [facility] Hospital07-13-2023 History of Present illness Narrative* Cathie Womack CargoGuard Tech - 01/31/2023 9:30 AM EDT RADIOLOGY [...] radiation safety can be found usingthis link: [email or web address]-% 20Diagnostic%20Nuclear%20Medicine%20Procedures.pdf SIGNATURE: Bib Parra PATIENT NAME: Janay Frederick DATE: January 31, 2023 TIME: 1:58 PM PAGER/CONTACT #: documented in this encounterClinton [facility] Hospital06-15-2023 NoteHNO ID: [id number] Author: Arnol Jonas MD Service: ? Author [...] which included preparing to see the patient, [id number] patient care, completing clinical documentation, obtaining and/or reviewing separately obtained history, performing a medically appropriate examination, counseling and educating the patient/family/caregiver, and care coordination (not separately reported). Large Joint Arthro/Inj: R knee joint Informed Consent Consent Obtained: Verbal Ward Protocol A moment to CARE was completed. [...] bodies accounted for. Arnol Jonas MD [facility]23 NoteHNO ID: [id number] Author: LOLIS Long Service: Radiology Author Type: [...] BY: LOLIS Long January 03, 2023 2:48 PMK[facility] [id number] History of Present illness Narrative* Arnol Jonas [...] which included preparing to see the patient, [id number]-[id number] patient care, completing clinical documentation, obtaining and/or reviewing separately obtained history, performing a medically appropriate examination, counseling and educating the patient/family/caregiver, and care coordination (not separately reported). Large Joint Arthro/Inj: R knee joint Informed Consent Consent Obtained: Verbal Ward Protocol A moment to CARE was completed. [...] Jonas MD Orthopaedic Surgery documented in this encounterClinton [facility] Hospital05-31-2023 Miscellaneous Notes* Telephone Encounter - aKssandra Sharma APRN.CNP - 12/19/2022 7:25 PM EDT PDMP website checked and validated. All prescriptions have been APPROPRIATELY filled. No suspiciousactivity was identified. 12/19/2022 by Kassandra Sharma APRN.CNP * Telephone Encounter - Asia Naranjo Pss - 12/19/2022 3:33 PM EDT Tamara is syncing her meds through [facility] and needs to scripts on these 3 meds. * Telephone Encounter - Asia Riojas - 12/19/2022 3:32 PM EDT Pharmacy verified in [facility] Patient has been identified by name [...] advise. Asia Naranjo Pss documented in this encounterClinton [facility] Hospital05-08-2023 NoteHNO ID: [id number] Author: Leydi Vance MD Service: ? Author Type: Physician Type: Progress Notes Filed: 11/28/2022 9:14 PM Note Text: [facility] Endocrine Metabolism [place] Endocrine Surgery Leydi Vance M.D. [address] [place] [id number] Name: Janay Frederick Clinic Number: [id number] Date of Service: November 26, 2022 Janay [...] have any questions or concerns. Leydi Vance [facility]05-08-2023 History of Present illness Narrative* Leydi Vance MD - 11/26/2022 1:38 PM EDT [facility] Endocrine Metabolism [place] Endocrine Surgery Leydi Vance M.D. [address] [place] [address] Name: Janay Frederick Clinic Number: [id number] Date of Service: November 26, 2022 Janay [...] concerns. Leydi Vance MD documented in this encounterClinton Memorial Hospital05-08-2023 Instructions* Patient Instructions* Amparo Jeffries Ma - 11/26/2022 1:30 PM EDT Thank you for choosing the [facility] Department of Endocrinology, Diabetes and Metabolism. Did you know that you need to call 48 hours in advance of your scheduled visit, if you are unable to make your appointment? The Endocrinology and Metabolism [place] thanks you for your commitment, because patients not showing to their appointment results in a lost opportunity for patients to receive world class health care at the [facility]. To Cancel an appointment, please choose one of the following: - Call the Appointment Call Center at [phone] - From [employer], Go to Appointments - Cancel Appts If cancelling, consider your need to reschedule to prevent further delays in your care. To Schedule an appointment, please choose one of the following: - Call the Appointment Call Center at [phone] - From [employer], Go to Appointments - Request an Appt documented in this encounterClinton [facility] Hospital05-04-2023 Miscellaneous Notes* Telephone Encounter - Ita [...] you. Crystal Mendoza Sedc documented in this encounterClinton [facility] Hospital05-02-2023 Miscellaneous Notes* Telephone Encounter - Liv Hayes RN - 11/20/2022 3:02 PM EDT Macy with the [facility] calls to request last OV noted be faxed to go with wound care referral received. Faxed to [phone] per request. Liv Hayes RN documented in this encounterClinton [facility] Hospital04-27-2023 Miscellaneous Notes* Telephone Encounter - Sole [...] that she had made an appointment with [facility] and she could not get into see them until 11/29/2022. Patient asking if this is ok? Please review and advise, Tarsha Hernández RN documented in this encounterClinton [facility] Hospital04-25-2023 NoteHNO ID: [id number] Author: Shorty Teresa MD Service: ? Author [...] DEVICE 04/21/2010 Performed by THI ALCOCER at [facility] LAPS RPR PARAESPHGL HRNA INCL FUNDPLSTY W/O MESH 04/21/2010 Performed by THI ALCOCER at [facility] MAL LESION FACE,EAR,EYEL 1.1-2CM 01/28/06 Left cheek and right forearm lesions PAST SURGICAL HISTORY OF July 06, 2009 Hysteroscopy DANDC PAST SURGICAL HISTORY OF 10/2017 vaginal vault suspension PAST SURGICAL HISTORY OF 10/2017 Lap band removed UNLIS LAPAROSCOPIC PROCEDURE LIVER 04/21/2010 Performed by THI ALCOCER at [facility] Family History FAMILY HISTORY Problem Relation Age [...] naloxone 4 mg/actuation nasal spray (NARCAN) 1 [place] by nasal (alternating) route as needed for known or suspected opioid overdose. Use 1 spray in one nostril as needed for overdose. May repeat every 2 to 3 min in alternating (more content not included)...[facility] 11-13-2022 History of Present illness Narrative* [...] DEVICE 04/21/2010 Performed by THI ALCOCER at [facility] LAPS RPR PARAESPHGL HRNA INCL FUNDPLSTY W/O MESH 04/21/2010 Performed by THI ALCOCER at [facility] MAL LESION FACE,EAR,EYEL 1.1-2CM 01/28/06 Left cheek and right forearm lesions PAST SURGICAL HISTORY OF July 06, 2009 Hysteroscopy D&C PAST SURGICAL HISTORY OF 10/2017 vaginal vault suspension PAST SURGICAL HISTORY OF 10/2017 Lap band removed UNLIS LAPAROSCOPIC PROCEDURE LIVER 04/21/2010 Performed by THI ALCOCER at [facility] Family History FAMILY HISTORY Problem Relation Age [...] naloxone 4 mg/actuation nasal spray (NARCAN) 1 [place] by nasal (alternating) route as needed for [...] recommend close f/u with wound care at [facility]. Red flags for re-assessment reviewed with patient in detail. 2. Bilateral lower extremity edema - ICD9: 782.3, ICD10: R60.0 Continue with compression stockings, leg elevation with rest, and lasix as prescribed. Shorty Teresa MD documented in this encounterClinton [facility] Hospital04-18-2023 NoteHNO ID: [id number] Author: Shorty Teresa MD Service: ? Author [...] DEVICE 04/21/2010 Performed by THI ALCOCER at [facility] LAPS RPR PARAESPHGL HRNA INCL FUNDPLSTY W/O MESH 04/21/2010 Performed by THI ALCOCER at [facility] MAL LESION FACE,EAR,EYEL 1.1-2CM 01/28/06 Left cheek and right forearm lesions PAST SURGICAL HISTORY OF July 06, 2009 Hysteroscopy DANNJ PAST SURGICAL HISTORY OF 10/2017 vaginal vault suspension PAST SURGICAL HISTORY OF 10/2017 Lap band removed UNLIS LAPAROSCOPIC PROCEDURE LIVER 04/21/2010 Performed by THI ALCOCER at [facility] Family History FAMILY HISTORY Problem Relation Age [...] by mouth once daily. (more content not included)...[facility]03-03-2023 Miscellaneous Notes* Telephone Encounter - Marlene [...] patient. Mickie Babcock Pss documented in this encounterClinton [facility] Hospital03-03-2023 Miscellaneous Notes* Telephone Encounter - Shorty Teresa MD - 09/21/2022 9:57 AM EST Needing order for BMP stat prior to reclast. Order placed as requested. documented in this encounterClinton Memorial Hospital02-23-2023 Miscellaneous Notes* Telephone Encounter - Tarsha Leigh - 09/13/2022 1:31 PM EST Spoke with patient and scheduled. Tarsha Leigh * Addendum Note - France Hadley RPh - 09/13/2022 1:01 PM ESTAddended by: FRANCE HADLEY on: 09/13/2022 01:01 PM Modules accepted: Orders * Telephone Encounter - Tarsha Leigh - 09/13/2022 12:47 PM EST Please convert to [facility] for scheduling/prior auth purposes and reroute to [facility] HEM/ONC PSR for scheduling. Thank you. Tarsha [...] working. Sole Toro LPN documented in this encounterClinton [facility] Hospital02-23-2023 Miscellaneous Notes* Telephone Encounter - Judy Roldan Ma - 09/13/2022 1:20 PM EST Called and spoke with PT, expressed understanding Gave patient phone number to call and make appt with 's office at [phone]. CLOSED * Telephone Encounter - Hayden Flanagan [...] to someone at Main. documented in this encounterClinton [facility] Hospital02-22-2023 NoteHNO ID: [id number] Author: Hayden Flanagan MD Service: ? Author [...] DEVICE 04/21/2010 Performed by THI ALCOCER at [facility] LAPS RPR PARAESPHGL HRNA INCL FUNDPLSTY W/O MESH 04/21/2010 Performed by THI ALCOCER at [facility] MAL LESION FACE,EAR,EYEL 1.1-2CM 01/28/06 Left cheek and right forearm lesions PAST SURGICAL HISTORY OF July 06, 2009 Hysteroscopy DANNJ PAST SURGICAL HISTORY OF 10/2017 vaginal vault suspension PAST SURGICAL HISTORY OF 10/2017 Lap band removed UNLIS LAPAROSCOPIC PROCEDURE LIVER 04/21/2010 Performed by THI ALCOCER at [facility] Medications Current Outpatient M (more content not included)...[facility] 09-12-2022 Instructions* Patient Instructions* Hayden Flanagan MD - 09/12/2022 4:33 PM EST - Please call [phone] and ask for the outpatient infusion to schedule your Recalst infusion - If you decided to meet with the parathyroid surgeon, please let me know documented in this encounterClinton Memorial Hospital02-22-2023 History of Present illness Narrative* Hayden [...] s/p hysterectomy Venous incompetence bilaterally, f/u Dr. Maravlila Vitamin D deficiency Past Surgical History PAST [...] DEVICE 04/21/2010 Performed by THI ALCOCER at [facility] LAPS RPR PARAESPHGL HRNA INCL FUNDPLSTY W/O MESH 04/21/2010 Performed by THI ALCOCER at [facility] MAL LESION FACE,EAR,EYEL 1.1-2CM 01/28/06 Left cheek and right forearm lesions PAST SURGICAL HISTORY OF July 06, 2009 Hysteroscopy D&C PAST SURGICAL HISTORY OF 10/2017 vaginal vault suspension PAST SURGICAL HISTORY OF 10/2017 Lap band removed UNLIS LAPAROSCOPIC PROCEDURE LIVER 04/21/2010 Performed by THI ALCOCER at [facility] Medications Current Outpatient Medications Medication Sig estradiol [...] naloxone 4 mg/actuation nasal spray (NARCAN) 1 [place] by nasal (alternating) route as needed for [...] which included preparing to see the patient, [id number]-[id number] patient care, completing clinical documentation, counseling and educating the patient/family/caregiver, and ordering medications, tests, or procedures. Hayden Flanagan MD documented in this encounterClinton [facility] Hospital01-31-2023 Miscellaneous Notes* Telephone Encounter - Adriana [...] ERNESTO Morales, [place], KIRT documented in this encounterClinton Memorial Hospital01-30-2023 Miscellaneous Notes* Telephone Encounter - Jimbo Post RN - 08/20/2022 4:26 PM EST Patient returned call and given provider's message below with verbalized understanding. * Telephone Encounter - Yael Flores LPN - 08/20/2022 4:20 PM EST Message left for patient to return call to receive provider's message. * Telephone Encounter - Shorty Teresa MD - 08/20/2022 3:57 PM EST longterm observational data has not shown any increased risk of cancer, stroke, or heart disease with vaginal estrogen despite sky cap warnings. I would be ok with trying [...] advise, Tarsha Hernández RN documented in this encounterClinton Memorial Hospital01-27-2023 NoteHNO ID: [id number] Author: Blayne Roldan PA-C Service: ? Author Type: Physician Toll Bridge Operator Type: Progress Notes Filed: 09/12/2022 1:20 PM Note Text: [facility] [place] [facility] PATIENT CLINIC [...] naloxone 4 mg/actuation nasal spray (NARCAN) 1 [place] by nasal (alternating) route as needed for [...] RESTRICTIVE PROCEDURE PLACE DEVICE (more content not included)...[facility]01-27-2023 NoteHNO ID: [id number] Author: Adriana Pandya LPN Service: ? Author [...] tolerated the procedure well. Plan: Appointment with Blayne.[facility]01-27-2023 History of Present illness Narrative* Blayne Roldan PA-C - 08/17/2022 5:20 PM EST Images from the original note were not included. [facility] [place] [facility] PATIENT CLINIC [...] naloxone 4 mg/actuation nasal spray (NARCAN) 1 [place] by nasal (alternating) route as needed for [...] DEVICE 04/21/2010 Performed by THI ALCOCER at [facility] LAPS RPR PARAESPHGL HRNA INCL FUNDPLSTY W/O MESH 04/21/2010 Performed by THI ALCOCER at [facility] MAL LESION FACE,EAR,EYEL 1.1-2CM 01/28/06 Left cheek and right forearm lesions PAST SURGICAL HISTORY OF July 06, 2009 Hysteroscopy D&C PAST SURGICAL HISTORY OF 10/2017 vaginal vault suspension PAST SURGICAL HISTORY OF 10/2017 Lap band removed UNLIS LAPAROSCOPIC PROCEDURE LIVER 04/21/2010 Performed by THI ALCOCER at [facility] FAMILY HISTORY: FAMILY HISTORY Problem Relation Age [...] Plan: Appointment with Blayne. documented in this encounterClinton [facility] Hospital01-25-2023 Miscellaneous Notes* Telephone Encounter - Adwoa [...] called stating she has not heard from [facility] yet about STAT US. Please advise patient. documented in this encounterClinton Memorial Hospital01-24-2023 Miscellaneous Notes* Telephone Encounter - Yael [...] discussed in office yesterday. documented in this encounterClinton Memorial Hospital01-23-2023 NoteHNO ID: [id number] Author: Shorty Teresa MD Service: ? Author [...] for her chronic lower back pain. Taking Monrovia as prescribed which is working well for [...] DEVICE 04/21/2010 Performed by THI ALCOCER at [facility] LAPS RPR PARAESPHGL HRNA INCL FUNDPLSTY W/O MESH 04/21/2010 Performed by THI ALCOCER at [facility] MAL LESION FACE,EAR,EYEL 1.1-2CM 01/28/06 Left cheek and right forearm lesions PAST SURGICAL HISTORY OF July 06, 2009 Hysteroscopy DANDC PAST SURGICAL HISTORY OF 10/2017 vaginal vault suspension PAST SURGICAL HISTORY OF 10/2017 Lap band removed UNLIS LAPAROSCOPIC PROCEDURE LIVER 04/21/2010 Performed by THI ALCOCER at [facility] Family History FAMILY HISTORY Problem Relation Age [...] by mouth once daily. (more content not included)...[facility]01-23-2023 History of Present illness Narrative* Shorty [...] for her chronic lower back pain. Taking Monrovia as prescribed which is working well for [...] DEVICE 04/21/2010 Performed by THI ALCOCER at [facility] LAPS RPR PARAESPHGL HRNA INCL FUNDPLSTY W/O MESH 04/21/2010 Performed by THI ALCOCER at [facility] MAL LESION FACE,EAR,EYEL 1.1-2CM 01/28/06 Left cheek and right forearm lesions PAST SURGICAL HISTORY OF July 06, 2009 Hysteroscopy D&C PAST SURGICAL HISTORY OF 10/2017 vaginal vault suspension PAST SURGICAL HISTORY OF 10/2017 Lap band removed UNLIS LAPAROSCOPIC PROCEDURE LIVER 04/21/2010 Performed by THI ALCOCER at [facility] Family History FAMILY HISTORY Problem Relation Age [...] naloxone 4 mg/actuation nasal spray (NARCAN) 1 [place] by nasal (alternating) route as needed for [...] rule out DVT. Scheduled tomorrow morning at [facility]. Discussed with her the importance of this [...] 724.2, 338.29, ICD10: M54.50, G89.29 Controlled on Monrovia. F/u with Dr. Nur for injections. 11. OAB (overactive bladder) - ICD9: 596.51, ICD10: N32.81 Controlled on Detrol [place]. 12. Vitamin D deficiency - ICD9: 268.9, ICD10: E55.9 Repeat labs ordered for next month with endocrinology. Continue current regimen. I spent a total of 45 minutes on the date of the service which included preparing to see the patient, ckik-pg-pdit patient care, completing clinical documentation, obtaining and/or reviewing separately obtained history, performing a medically appropriate examination, counseling and educating the pat ient/family/caregiver, and ordering medications, tests, or procedures. Shorty Teresa MD documented in this encounterClinton [facility] Hospital01-17-2023 NoteHNO ID: [id number] Author: Shorty Teresa MD Service: ? Author [...] DEVICE 04/21/2010 Performed by THI ALCOCER at [facility] LAPS RPR PARAESPHGL HRNA INCL FUNDPLSTY W/O MESH 04/21/2010 Performed by THI ALCOCER at [facility] MAL LESION FACE,EAR,EYEL 1.1-2CM 01/28/06 Left cheek and right forearm lesions PAST SURGICAL HISTORY OF July 06, 2009 Hysteroscopy DANNJ PAST SURGICAL HISTORY OF 10/2017 vaginal vault suspension PAST SURGICAL HISTORY OF 10/2017 Lap band removed UNLIS LAPAROSCOPIC PROCEDURE LIVER 04/21/2010 Performed by THI ALCOCER at [facility] Family History FAMILY HISTORY Problem Relation Age [...] naloxone 4 mg/actuation nasal spray (NARCAN) 1 [place] by nasal (alternating) route as needed for [...] mg per ta (more content not included)... [facility]01-05-2023 History of Present illness Narrative* Donnell [...] DEVICE 04/21/2010 Performed by THI ALCOCER at [facility] LAPS RPR PARAESPHGL HRNA INCL FUNDPLSTY W/O MESH 04/21/2010 Performed by THI ALCOCER at [facility] MAL LESION FACE,EAR,EYEL 1.1-2CM 01/28/06 Left cheek and right forearm lesions PAST SURGICAL HISTORY OF July 06, 2009 Hysteroscopy D&C PAST SURGICAL HISTORY OF 10/2017 vaginal vault suspension PAST SURGICAL HISTORY OF 10/2017 Lap band removed UNLIS LAPAROSCOPIC PROCEDURE LIVER 04/21/2010 Performed by THI ALCOCER at [facility] MEDICATIONS: Current Outpatient Medications Medication Sig gabapentin [...] naloxone 4 mg/actuation nasal spray (NARCAN) 1 [place] by nasal (alternating) route as needed for [...] CAPSULE Donnell Braden MD documented in this encounterClinton [facility] Hospital12-19-2022 History of Present illness Narrative* Elly Bruno PA-C - 07/09/2022 6:46 PM EST This note was created using [email or web address]. Subjective Janay Frederick is a 72 year [...] naloxone 4 mg/actuation nasal spray (NARCAN) 1 [place] by nasal (alternating) route as needed for [...] DEVICE 04/21/2010 Performed by THI ALCOCER at [facility] LAPS RPR PARAESPHGL HRNA INCL FUNDPLSTY W/O MESH 04/21/2010 Performed by THI ALCOCER at [facility] MAL LESION FACE,EAR,EYEL 1.1-2CM 01/28/06 Left cheek and right forearm lesions PAST SURGICAL HISTORY OF July 06, 2009 Hysteroscopy D&C PAST SURGICAL HISTORY OF 10/2017 vaginal vault suspension PAST SURGICAL HISTORY OF 10/2017 Lap band removed UNLIS LAPAROSCOPIC PROCEDURE LIVER 04/21/2010 Performed by THI ALCOCER at [facility] FAMILY HISTORY Problem Relation Age of Onset [...] CULTURE Elly Bruno PA-C documented in this encounterClinton [facility] Hospital12-06-2022 Miscellaneous Notes* Telephone Encounter - Kassandra [...] patient. Mickie Babcock Pss documented in this encounterClinton [facility] Hospital11-10-2022 Miscellaneous Notes* Telephone Encounter - Shorty [...] vomiting, and nausea. Protocols used: Influenza - [id number] [facility] Miscellaneous Notes* Letter - Mammography Coordinator - 04/27/2022 12:32 PM EDT April 27, 2022 PID: [id number] Janay Frederick [address] [place] [address] Dear Ms. Frederick, We are pleased to [...] report will be [facility] as part of your permanent medical record and are available for your continuing care. Thank you for allowing us to help in meeting your health care needs. Sincerely, Dr. Babin Interpreting Radiologist [facility] (Normal over 40) documented in this encounterCl[facility]10-[facility]22 History of Present illness Narrative* RT [...] IV DATA: Not applicable SIGNED BY: RT Tnao(R) April 26, 2022 3:10 PM documented in this encounterCl[facility]09[facility]30-[facility]22 Miscellaneous Notes* Telephone Encounter - Isabell Hancock [...] this is lab error. documented in this encounterCl[facility]09-28-2022 Miscellaneous Notes* Telephone Encounter - Tarsha Hernández RN - 04/18/2022 11:49 AM EDT Patient calls and is asking if prescription can be sent to [facility]. Please review and advise, Tarsha Hernández RN documented in this encounterCl[facility]09[facility]13-2022 Miscellaneous Notes* Telephone Encounter - Griselda [...] send this RX to her pharmacy, [facility] in [place]. documented in this encounterCl[facility]09[facility]22 Miscellaneous Notes* Telephone Encounter - Marlene Loaiza LPN - 03/28/2022 8:35 AM EDT Paperwork faxed to [facility] at . Marlene Loaiza LPN * Telephone Encounter - Kassandra Sharma APRN.CNP - 03/28/2022 7:42 AM EDT Please fax paperwork back to [facility]. Kassandra Sharma APRN.LENA * Telephone Encounter - Marlene Loaiza LPN - 03/27/2022 9:58 AM EDT Patient notified of message below. States she will try the medication they're recommending. Please send to [facility] Arell[facility]. Marlene Loaiza LPN * Telephone Encounter - Kassandra Sharma APRN.CNP - 03/27/2022 9:46 AM EDT Please call patient and let her know [facility] has sent request over to change Oxybutynin for Detrol ER due to patient was having trouble cutting tablets in half and dry mouth. Does she want me to change this. Kassandra Sharma APRN.CNP documented in this encounterCl[facility]08-28-2022 Miscellaneous Notes* Telephone Encounter - Shorty [...] patient. Petramichael Presley Pss documented in this encounterCl[facility]07-21-2022 Miscellaneous Notes* Telephone Encounter - Neva [...] levels in 2-3 months. documented in this encounterCl[facility]07-15-2022 History of Past illness Narrative* Problem Noted Date Diagnosed Date Resolved Date Insomnia 02/02/2022 01/31/2023 Preop testing 10/11/2017 06/26/2018 Overview: Added automatically from request for surgery [id number] Dysphagia 07/09/2017 10/24/2018 Gastric band slippage 07/09/20172017 [...] of this encounter (statuses as of 01/31/2023) [facility] of Past illness Narrative* Problem Noted Date Diagnosed Date Resolved Date Insomnia 02/02/2022 01/31/2023 Preop testing 10/11/2017 06/26/2018 Overview: Added automatically from request for surgery [id number] Dysphagia 07/09/2017 10/24/2018 Gastric band slippage 07/09/20172017 [...] of this encounter (statuses as of 02/01/2023) [facility] Narrative* Problem Noted Date Diagnosed Date Resolved Date Insomnia 02/02/2022 01/31/2023 Preop testing 10/11/2017 06/26/2018 Overview: Added automatically from request for surgery [id number] Dysphagia 07/09/2017 10/24/2018 Gastric band slippage 07/09/20172017 [...] of this encounter (statuses as of 02/01/2023) [facility] Narrative* Problem Noted Date Diagnosed Date Resolved Date Insomnia 02/02/2022 01/31/2023 Preop testing 10/11/2017 06/26/2018 Overview: Added automatically from request for surgery [id number] Dysphagia 07/09/2017 10/24/2018 Gastric band slippage 07/09/20172017 [...] of this encounter (statuses as of 02/05/2023) [facility] Narrative* Problem Noted Date Diagnosed Date Resolved Date Insomnia 02/02/2022 01/31/2023 Preop testing 10/11/2017 06/26/2018 Overview: Added automatically from request for surgery [id number] Dysphagia 07/09/2017 10/24/2018 Gastric band slippage 07/09/20172017 [...] of this encounter (statuses as of 02/27/2023) [facility] Narrative* Problem Noted Date Diagnosed Date Resolved Date Insomnia 02/02/2022 01/31/2023 Preop testing 10/11/2017 06/26/2018 Overview: Added automatically from request for surgery [id number] Dysphagia 07/09/2017 10/24/2018 Gastric band slippage 07/09/20172017 [...] of this encounter (statuses as of 03/28/2023) [facility] Narrative* Problem Noted Date Diagnosed Date Resolved Date Insomnia 02/02/2022 01/31/2023 Preop testing 10/11/2017 06/26/2018 Overview: Added automatically from request for surgery [id number] Dysphagia 07/09/2017 10/24/2018 Gastric band slippage 07/09/20172017 [...] of this encounter (statuses as of 2023) [facility] Narrative* Problem Noted Date Diagnosed Date Resolved Date Insomnia 02/02/2022 01/31/2023 Preop testing 10/11/2017 06/26/2018 Overview: Added automatically from request for surgery [id number] Dysphagia 07/09/2017 10/24/2018 Gastric band slippage 07/09/20172017 [...] of this encounter (statuses as of 04/12/2023) [facility] Narrative* Problem Noted Date Diagnosed Date Resolved Date Insomnia 02/02/2022 01/31/2023 Preop testing 10/11/2017 06/26/2018 Overview: Added automatically from request for surgery [id number] Dysphagia 07/09/2017 10/24/2018 Gastric band slippage 07/09/20172017 [...] of this encounter (statuses as of 05/21/2023) [facility] Narrative* Problem Noted Date Diagnosed Date Resolved Date Insomnia 02/02/2022 01/31/2023 Preop testing 10/11/2017 06/26/2018 Overview: Added automatically from request for surgery [id number] Dysphagia 07/09/2017 10/24/2018 Gastric band slippage 07/09/20172017 [...] of this encounter (statuses as of 05/26/2023) [facility] Narrative* Problem Noted Date Diagnosed Date Resolved Date Insomnia 02/02/2022 01/31/2023 Preop testing 10/11/2017 06/26/2018 Overview: Added automatically from request for surgery [id number] Dysphagia 07/09/2017 10/24/2018 Gastric band slippage 07/09/20172017 [...] of this encounter (statuses as of 05/30/2023) [facility] Miscellaneous Notes* Telephone Encounter - Neva [...] ultrasound to further evaluate. documented in this encounterCl[facility]06-28-2022 Miscellaneous Notes* Telephone Encounter - Latanya [...] 01/15/2022 4:22 PM EDT Will send to [facility] to possibly help assist with this. [...] any chance? Thank you. documented in this encounterCl[facility]06-08-2022 Miscellaneous Notes* Telephone Encounter - Marlene [...] calling: self Call patient at: on cell [phone] (home) [phone] (cell) Was an appointment scheduled: No Closing statement: Results or non-symptom based questions: Thank you for calling [facility], your call will be returned within the next business day. Carmel Cheng Pss documented in this encounterCl[facility]06-06-2022 Miscellaneous Notes* Telephone Encounter - Kassandra [...] as well. If you can contact patient [phone]. Patient has been identified by name and [...] patient. Chelsea Toro Pss documented in this encounterCl[facility]05-17-2022 History of Present illness Narrative* Shorty Teresa MD - 12/05/2021 7:02 PM EDT Chief Complaint Patient presents with: ER F/U: 12/02/21 HPI Janay Frederick is a 71 year old female who presents here today for ER Follow Up.. Patient evaluated at [facility] ED on 12/02 for complaint of dizziness [...] should replace it once per week. Taking [place] 3 times per day as well. Does [...] DEVICE 04/21/2010 Performed by THI ALCOCER at [facility] LAPS RPR PARAESPHGL HRNA INCL FUNDPLSTY W/O MESH 04/21/2010 Performed by THI ALCOCER at [facility] MAL LESION FACE,EAR,EYEL 1.1-2CM 01/28/06 Left cheek and right forearm lesions PAST SURGICAL HISTORY OF July 06, 2009 Hysteroscopy D&C PAST SURGICAL HISTORY OF 10/2017 vaginal vault suspension PAST SURGICAL HISTORY OF 10/2017 Lap band removed UNLIS LAPAROSCOPIC PROCEDURE LIVER 04/21/2010 Performed by THI ALCOCER at [facility] Family History FAMILY HISTORY Problem Relation Age [...] SPRAY Shorty Teresa MD documented in this encounterCl[facility]03-23-2018 History of Past illness Narrative* Problem Noted Date Resolved Date Preop testing 10/11/2017 06/26/2018 Overview: Added automatically from request for surgery [id number] Dysphagia 07/09/2017 10/24/2018 Gastric band slippage 07/09/2017 [...] of this encounter (statuses as of 12/06/2021) [facility] Narrative* Problem Noted Date Resolved Date Preop testing 10/11/2017 06/26/2018 Overview: Added automatically from request for surgery [id number] Dysphagia 07/09/2017 10/24/2018 Gastric band slippage 07/09/2017 [...] of this encounter (statuses as of 12/25/2021) [facility] Narrative* Problem Noted Date Resolved Date Preop testing 10/11/2017 06/26/2018 Overview: Added automatically from request for surgery [id number] Dysphagia 07/09/2017 10/24/2018 Gastric band slippage 07/09/2017 [...] of this encounter (statuses as of 12/27/2021) [facility] Narrative* Problem Noted Date Resolved Date Preop testing 10/11/2017 06/26/2018 Overview: Added automatically from request for surgery [id number] Dysphagia 07/09/2017 10/24/2018 Gastric band slippage 07/09/2017 [...] of this encounter (statuses as of 01/24/2022) [facility] Narrative* Problem Noted Date Resolved Date Preop testing 10/11/2017 06/26/2018 Overview: Added automatically from request for surgery [id number] Dysphagia 07/09/2017 10/24/2018 Gastric band slippage 07/09/2017 [...] of this encounter (statuses as of 02/08/2022) [facility]arrative* Problem Noted Date Resolved Date Preop testing 10/11/2017 06/26/2018 Overview: Added automatically from request for surgery [id number] Dysphagia 07/09/2017 10/24/2018 Gastric band slippage 07/09/2017 [...] of this encounter (statuses as of 02/08/2022) [facility]arrative* Problem Noted Date Resolved Date Preop testing 10/11/2017 06/26/2018 Overview: Added automatically from request for surgery [id number] Dysphagia 07/09/2017 10/24/2018 Gastric band slippage 07/09/2017 [...] of this encounter (statuses as of 03/18/2022) [facility]arrative* Problem Noted Date Resolved Date Preop testing 10/11/2017 06/26/2018 Overview: Added automatically from request for surgery [id number] Dysphagia 07/09/2017 10/24/2018 Gastric band slippage 07/09/2017 [...] of this encounter (statuses as of 03/28/2022) [facility]arrative* Problem Noted Date Resolved Date Preop testing 10/11/2017 06/26/2018 Overview: Added automatically from request for surgery [id number] Dysphagia 07/09/2017 10/24/2018 Gastric band slippage 07/09/2017 [...] of this encounter (statuses as of 04/03/2022) [facility]ative* Problem Noted Date Resolved Date Preop testing 10/11/2017 06/26/2018 Overview: Added automatically from request for surgery [id number] Dysphagia 07/09/2017 10/24/2018 Gastric band slippage 07/09/2017 [...] of this encounter (statuses as of 04/18/2022) [facility]* Problem Noted Date Resolved Date Preop testing 10/11/2017 06/26/2018 Overview: Added automatically from request for surgery [id number] Dysphagia 07/09/2017 10/24/2018 Gastric band slippage 07/09/2017 [...] of this encounter (statuses as of 04/20/2022) [facility]ative* Problem Noted Date Resolved Date Preop testing 10/11/2017 06/26/2018 Overview: Added automatically from request for surgery [id number] Dysphagia 07/09/2017 10/24/2018 Gastric band slippage 07/09/2017 [...] of this encounter (statuses as of 04/24/2022) [facility]* Problem Noted Date Resolved Date Preop testing 10/11/2017 06/26/2018 Overview: Added automatically from request for surgery [id number] Dysphagia 07/09/2017 10/24/2018 Gastric band slippage 07/09/2017 [...] of this encounter (statuses as of 04/27/2022) [facility]* Problem Noted Date Resolved Date Preop testing 10/11/2017 06/26/2018 Overview: Added automatically from request for surgery [id number] Dysphagia 07/09/2017 10/24/2018 Gastric band slippage 07/09/2017 [...] of this encounter (statuses as of 05/01/2022) [facility]* Problem Noted Date Resolved Date Preop testing 10/11/2017 06/26/2018 Overview: Added automatically from request for surgery [id number] Dysphagia 07/09/2017 10/24/2018 Gastric band slippage 07/09/2017 [...] of this encounter (statuses as of 05/31/2022) [facility]* Problem Noted Date Resolved Date Preop testing 10/11/2017 06/26/2018 Overview: Added automatically from request for surgery [id number] Dysphagia 07/09/2017 10/24/2018 Gastric band slippage 07/09/2017 [...] of this encounter (statuses as of 06/26/2022) [facility]* Problem Noted Date Resolved Date Preop testing 10/11/2017 06/26/2018 Overview: Added automatically from request for surgery [id number] Dysphagia 07/09/2017 10/24/2018 Gastric band slippage 07/09/2017 [...] of this encounter (statuses as of 07/09/2022) [place] [address]-23-2018 History of Past illness Narrative* Problem Noted Date Resolved Date Preop testing 10/11/2017 06/26/2018 Overview: Added automatically from request for surgery [id number] Dysphagia 07/09/2017 10/24/2018 Gastric band slippage 07/09/2017 [...] of this encounter (statuses as of 07/10/2022) [facility]* Problem Noted Date Resolved Date Preop testing 10/11/2017 06/26/2018 Overview: Added automatically from request for surgery [id number] Dysphagia 07/09/2017 10/24/2018 Gastric band slippage 07/09/2017 [...] of this encounter (statuses as of 07/27/2022) [facility]* Problem Noted Date Resolved Date Preop testing 10/11/2017 06/26/2018 Overview: Added automatically from request for surgery [id number] Dysphagia 07/09/2017 10/24/2018 Gastric band slippage 07/09/2017 [...] of this encounter (statuses as of 08/14/2022) [facility]* Problem Noted Date Resolved Date Preop testing 10/11/2017 06/26/2018 Overview: Added automatically from request for surgery [id number] Dysphagia 07/09/2017 10/24/2018 Gastric band slippage 07/09/2017 [...] of this encounter (statuses as of 08/14/2022) [facility]* Problem Noted Date Resolved Date Preop testing 10/11/2017 06/26/2018 Overview: Added automatically from request for surgery [id number] Dysphagia 07/09/2017 10/24/2018 Gastric band slippage 07/09/2017 [...] of this encounter (statuses as of 08/15/2022) [facility]* Problem Noted Date Resolved Date Preop testing 10/11/2017 06/26/2018 Overview: Added automatically from request for surgery [id number] Dysphagia 07/09/2017 10/24/2018 Gastric band slippage 07/09/2017 [...] of this encounter (statuses as of 08/21/2022) [facility]* Problem Noted Date Resolved Date Preop testing 10/11/2017 06/26/2018 Overview: Added automatically from request for surgery [id number] Dysphagia 07/09/2017 10/24/2018 Gastric band slippage 07/09/2017 [...] of this encounter (statuses as of 08/21/2022) [facility]* Problem Noted Date Resolved Date Preop testing 10/11/2017 06/26/2018 Overview: Added automatically from request for surgery [id number] Dysphagia 07/09/2017 10/24/2018 Gastric band slippage 07/09/2017 [...] of this encounter (statuses as of 09/12/2022) [facility]* Problem Noted Date Resolved Date Preop testing 10/11/2017 06/26/2018 Overview: Added automatically from request for surgery [id number] Dysphagia 07/09/2017 10/24/2018 Gastric band slippage 07/09/2017 [...] of this encounter (statuses as of 09/13/2022) [facility]* Problem Noted Date Resolved Date Preop testing 10/11/2017 06/26/2018 Overview: Added automatically from request for surgery [id number] Dysphagia 07/09/2017 10/24/2018 Gastric band slippage 07/09/2017 [...] of this encounter (statuses as of 09/13/2022) [facility]* Problem Noted Date Resolved Date Preop testing 10/11/2017 06/26/2018 Overview: Added automatically from request for surgery [id number] Dysphagia 07/09/2017 10/24/2018 Gastric band slippage 07/09/2017 [...] of this encounter (statuses as of 09/13/2022) [facility]* Problem Noted Date Resolved Date Preop testing 10/11/2017 06/26/2018 Overview: Added automatically from request for surgery [id number] Dysphagia 07/09/2017 10/24/2018 Gastric band slippage 07/09/2017 [...] of this encounter (statuses as of 09/13/2022) [facility]* Problem Noted Date Resolved Date Preop testing 10/11/2017 06/26/2018 Overview: Added automatically from request for surgery [id number] Dysphagia 07/09/2017 10/24/2018 Gastric band slippage 07/09/2017 [...] of this encounter (statuses as of 09/13/2022) [facility]* Problem Noted Date Resolved Date Preop testing 10/11/2017 06/26/2018 Overview: Added automatically from request for surgery [id number] Dysphagia 07/09/2017 10/24/2018 Gastric band slippage 07/09/2017 [...] of this encounter (statuses as of 09/21/2022) [facility]* Problem Noted Date Resolved Date Preop testing 10/11/2017 06/26/2018 Overview: Added automatically from request for surgery [id number] Dysphagia 07/09/2017 10/24/2018 Gastric band slippage 07/09/2017 [...] of this encounter (statuses as of 09/24/2022) [facility]* Problem Noted Date Resolved Date Preop testing 10/11/2017 06/26/2018 Overview: Added automatically from request for surgery [id number] Dysphagia 07/09/2017 10/24/2018 Gastric band slippage 07/09/2017 [...] of this encounter (statuses as of 10/22/2022) [facility]* Problem Noted Date Resolved Date Preop testing 10/11/2017 06/26/2018 Overview: Added automatically from request for surgery [id number] Dysphagia 07/09/2017 10/24/2018 Gastric band slippage 07/09/2017 [...] of this encounter (statuses as of 11/14/2022) [facility]* Problem Noted Date Resolved Date Preop testing 10/11/2017 06/26/2018 Overview: Added automatically from request for surgery [id number] Dysphagia 07/09/2017 10/24/2018 Gastric band slippage 07/09/2017 [...] of this encounter (statuses as of 11/15/2022) [facility]* Problem Noted Date Resolved Date Preop testing 10/11/2017 06/26/2018 Overview: Added automatically from request for surgery [id number] Dysphagia 07/09/2017 10/24/2018 Gastric band slippage 07/09/2017 [...] of this encounter (statuses as of 11/15/2022) [facility]* Problem Noted Date Resolved Date Preop testing 10/11/2017 06/26/2018 Overview: Added automatically from request for surgery [id number] Dysphagia 07/09/2017 10/24/2018 Gastric band slippage 07/09/2017 [...] of this encounter (statuses as of 11/21/2022) [facility]* Problem Noted Date Resolved Date Preop testing 10/11/2017 06/26/2018 Overview: Added automatically from request for surgery [id number] Dysphagia 07/09/2017 10/24/2018 Gastric band slippage 07/09/2017 [...] of this encounter (statuses as of 11/26/2022) [facility]* Problem Noted Date Resolved Date Preop testing 10/11/2017 06/26/2018 Overview: Added automatically from request for surgery [id number] Dysphagia 07/09/2017 10/24/2018 Gastric band slippage 07/09/2017 [...] of this encounter (statuses as of 11/28/2022) [facility]* Problem Noted Date Resolved Date Preop testing 10/11/2017 06/26/2018 Overview: Added automatically from request for surgery [id number] Dysphagia 07/09/2017 10/24/2018 Gastric band slippage 07/09/2017 [...] of this encounter (statuses as of 11/29/2022) [facility]* Problem Noted Date Resolved Date Preop testing 10/11/2017 06/26/2018 Overview: Added automatically from request for surgery [id number] Dysphagia 07/09/2017 10/24/2018 Gastric band slippage 07/09/2017 [...] of this encounter (statuses as of 12/03/2022) [facility]* Problem Noted Date Resolved Date Preop testing 10/11/2017 06/26/2018 Overview: Added automatically from request for surgery [id number] Dysphagia 07/09/2017 10/24/2018 Gastric band slippage 07/09/2017 [...] of this encounter (statuses as of 12/20/2022) [facility]* Problem Noted Date Resolved Date Preop testing 10/11/2017 06/26/2018 Overview: Added automatically from request for surgery [id number] Dysphagia 07/09/2017 10/24/2018 Gastric band slippage 07/09/2017 [...] of this encounter (statuses as of 01/04/2023) [facility] Diagnosis Acute cystitis without hematuria- Primary Acute cystitis Dizziness Dizziness and giddiness Fatigue, unspecified type Hypokalemia Hypopotassemia Opioid use documented [facility] this [facility] Diagnosis Lower extremity edema- Primary Edema Venous incompetence Unspecified venous (peripheral) insufficiency [facility] Diagnosis Elevated alkaline phosphatase level Other nonspecific abnormal serum enzyme levels Elevated LFTs Other abnormal blood chemistry [facility] Diagnosis Elevated alkaline phosphatase level- Primary Other nonspecific abnormal serum enzyme levels Elevated LFTs Other abnormal blood chemistry [facility] Diagnosis Gastroesophageal reflux disease, unspecified whether esophagitis present Esophageal dysphagia Dysphagia, pharyngoesophageal phase documented in this [facility] Diagnosis Hypokalemia- Primary Hypopotassemia documented in [...] unspecified location- Primary [facility] Diagnosis Mixed hyperlipidemia documented in this encounter [facility]* Diagnosis Screening mammogram for breast cancer- [facility] Diagnosis Screening mammogram for breast cancer [...] (HCC) Morbid obesity documented in this encounter [facility] for referral (narrative)* Diagnostic Procedure Only (Routine) - Closed Specialty Diagnoses / Procedures Referred By Antione t Referred To Contact US IMAGING Diagnoses Elevated alkaline phosphatase level Elevated LFTs Procedures US ABD RT UPPER QUADRANT US ABDOMINAL REAL TIME W/IMAGE LIMITED Shorty Teresa MD [address] [place] [address] Us Imaging Referral ID Status Reason Start Date Expiration Date V isits Requested Visits Authorized [id number] Closed Auto-Generated Referral Patient Cleared - INN Insurance Found 02/02/2022 07/21/2022 1 1 [facility] for referral (narrative)* Diagnostic Procedure Only (Routine) - Closed Specialty Diagnoses / Procedures Referred By Antione macias Referred To Contact US IMAGING Diagnoses Elevated alkaline phosphatase level Elevated LFTs Procedures US ABD RT UPPER QUADRANT US ABDOMINAL REAL TIME W/IMAGE LIMITED Shorty Teresa MD [address] [place] [address] Us Imaging Referral ID Status Reason Start Date Expiration Date V isits Requested Visits Authorized [id number] Closed Auto-Generated Referral Patient Cleared - INN Insurance Found 02/02/2022 07/21/2022 1 1 [facility] for referral (narrative)* Diagnostic Procedure Only (Routine) - Closed Specialty Diagnoses / Procedures Referred By Antione t Referred To Contact BR IMAGING Diagnoses Screening mammogram for breast cancer Procedures CRISTINA SCREENING SCREENING MAMMOGRAPHY BI 2-VIEW BREAST INC CAD Shorty Teresa MD [address] [place] [address] Br Imaging [address] [place] [address] Referral ID Status Reason Start Date Expiration Date V isits Requested Visits Authorized [id number] Closed Auto-Generate d Referral 02/08/2022 03/10/2023 1 1 [facility] for referral (narrative)* Outpatient Procedure (Urgent) - Pending Review Specialty Diagnoses / Procedures Referred By Contac t Referred To Contact [facility] Diagnoses Left leg swelling Procedures US LEG VEIN DVT UNL VAS LAB DUP-SCAN XTR VEINS UNILATERAL/LIMITED STUDY Shorty Teresa MD [address] [place] [address] [facility] [place] [address] [place] [address] Referral ID Status Reason Start Date Expiration Date Visits Requested Visits Authorized [id number] Pending Review Auto-Generat ed Referral 08/13/2022 08/13/2023 1 1 [facility] for referral (narrative)* Diagnostic Procedure Only (Routine) - Pending Review Specialty Diagnoses / Procedures Referred By Contac t Referred To Contact XR IMAGING Diagnoses Pain in both knees, unspecified chronicity Procedures XR KNEE POST OP 3V AP/LAT/MERCHANT BILATERAL RADIOLOGIC EXAMINATION KNEE 3 VIEWS John Desai PA-C [address] [place] [address] Xr Imaging Referral ID Status Reason Start Date Expiration Date Visits Requested Visits Authorized [id number] Pending Review Auto-Generat ed Referral 11/14/2022 12/14/2023 1 1 [facility] for referral (narrative)* Diagnostic Procedure Only (Routine) - Closed Specialty Diagnoses / Procedures Referred By Contact Referred To Contact MOLECULAR & FUNCTIONAL IMAGING Diagnoses Primary hyperparathyroidism (HCC) Hypercalcemia Procedures NM PARATHYROID W SPECT/CT PARATHYROID IMAGING W/TOMOGRAPHIC SPECT & CT Leydi Vance MD [address] [place] [address] [facility] [address] [place] [address] Referral ID Status Reason Start Date Expiration Date V isits Requested Visits Authorized [id number] Closed Auto-Generate d Referral 12/03/2022 01/02/2024 1 1 [facility] for referral (narrative)* Diagnostic Procedure Only (Routine) - Authorized Specialty Diagnoses / Procedures Referred By Rebeccaac t Referred To Contact BR IMAGING Diagnoses Screening mammogram for breast cancer Procedures CRISTINA SCREENING SCREENING MAMMOGRAPHY BI 2-VIEW BREAST INC Shorty Sifuentes MD [address] [place] [address] Br Imaging [address] [place] [address] Referral ID Status Reason Start Date Expiration Date Visits Requested Visits Authorized [id number] Authorized Auto-Generat ed Referral 04/12/2023 05/11/2024 1 1 [facility] for referral (narrative)* Diagnostic Procedure Only (Routine) - Closed Specialty Diagnoses / Procedures Referred By Antione macias Referred To Contact BR IMAGING Diagnoses Screening mammogram for breast cancer Procedures CRISTINA SCREENING SCREENING MAMMOGRAPHY BI 2-VIEW BREAST INC Shorty Sifuentes MD [address] [place] [address] Br Imaging [address] [address] Referral ID Status Reason Start Date Expiration Date V isits Requested Visits Authorized [id number] Closed Auto-Generate d Referral 04/12/2023 05/11/2024 1 1 [facility] for referral (narrative)* Diagnostic Procedure Only (Routine) - Pending Review Specialty Diagnoses / Procedures Referred By Contac t Referred To Contact XR IMAGING Diagnoses Hyperparathyroidism (HCC) Osteoporosis without current pathological fracture, unspecified osteoporosis type Procedures DXA-FOREARM SKELETON DXA BONE DENSITY STUDY 1/>SITES APPENDICLR Hayden Carlson MD [facility] [place] [address] [place] [address] Referral ID Status Reason Start Date Expiration Date Visits Requested Visits Authorized [id number] Pending Review Auto-Generat ed Referral 09/12/2023 06/27/2024 1 1 [facility] for visit Narrative* Diagnostic Procedure Only (Routine) - Closed Specialty Diagnoses / Procedures Referred By Antione macias Referred To Contact US IMAGING Diagnoses Elevated alkaline phosphatase level Elevated LFTs Procedures US ABD RT UPPER QUADRANT US ABDOMINAL REAL TIME W/IMAGE LIMITED Shorty Teresa MD [address] [place] [address] Us Imaging Referral ID Status Reason Start Date Expiration Date V isits Requested Visits Authorized [id number] Closed Auto-Generated Referral Patient Cleared - INN Insurance Found 02/02/2022 07/21/2022 1 1 [facility] for visit Narrative* Diagnostic Procedure Only (Routine) - Closed Specialty Diagnoses / Procedures Referred By Antione macias Referred To Contact BR IMAGING Diagnoses Screening mammogram for breast cancer Procedures CRISTINA SCREENING SCREENING MAMMOGRAPHY BI 2-VIEW BREAST INC CAD Shorty Teresa MD [address] [place] [address] Br Imaging [address] [place] [address] Referral ID Status Reason Start Date Expiration Date V isits Requested Visits Authorized [id number] Closed Auto-Generate d Referral 02/08/2022 03/10/2023 1 1 [facility] for visit Narrative* Diagnostic Procedure Only (Routine) - Closed Specialty Diagnoses / Procedures Referred By Contact Referred To Contact MOLECULAR & FUNCTIONAL IMAGING Diagnoses Primary hyperparathyroidism (HCC) Hypercalcemia Procedures NM PARATHYROID W SPECT/CT PARATHYROID IMAGING W/TOMOGRAPHIC SPECT & CT Leydi Vance MD [address] [place] [address] [facility] [address] [place] [address] Referral ID Status Reason Start Date Expiration Date V isits Requested Visits Authorized [id number] Closed Auto-Generate d Referral 12/03/2022 01/02/2024 1 1 [facility] for visit Narrative* Diagnostic Procedure Only (Routine) - Closed Specialty Diagnoses / Procedures Referred By Contac t Referred To Contact BR IMAGING Diagnoses Screening mammogram for breast cancer Procedures CRISTINA SCREENING SCREENING MAMMOGRAPHY BI 2-VIEW BREAST INC CAD Shorty Teresa MD [address] [place] [address] Br Imaging [address] [place] [address] Referral ID Status Reason Start Date Expiration Date V isits Requested Visits Authorized [id number] Closed Auto-Generate d Referral 04/12/2023 05/11/2024 1 1 [facility] Summary Purpose Family History No Family History Records FoundNo Family History Records FoundNo Family History Records FoundNo Family History Records Found Advance Directives No Advanced Directives Records FoundDocuments on File Type Date 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 Advance Directive(s) Advance Directive(s) 10/31/2017 2:52 PM Advance Directive(s) 07/16/2017 2:14 PM Advance Directive(s) 07/16/2017 2:15 PM Advance Directive(s) 07/12/2017 12:38 PM Advance Directive(s) 07/20/2016 12:15 PM Documents on File Type Date Recorded 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 Advance Directive(s) Advance Directive(s) 10/31/2017 2:52 PM Advance Directive(s) 07/16/2017 2:14 PM Advance Directive(s) 07/16/2017 2:15 PM Advance Directive(s) 07/12/2017 12:38 PM Advance Directive(s) 07/20/2016 12:15 PM Documents on File Type Date Recorded 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 Advance Directive(s) 07/16/2017 2:15 PM Documents on File Type Date Recorded 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 Advance Directive(s) 07/16/2017 2:15 PM Reason for Referral Specialty Diagnoses / Procedures Referred By Contac t Referred To Contact Endocrinology Diagnoses Elevated LFTs Elevated alkaline phosphatase level Procedures CONSULT TO ENDOCRINOLOGY OFFICE/OUTPATIENT NEW HIGH MDM 60-74 MINUTES Shorty Teresa MD [address] [place] [address] Referral ID Status Reason Start Date Expiration Date Visits Requested Visits Authorized [id number] Pending Review PCP Requested Referral 04/24/2022 02/08/2023 1 1 Specialty Diagnoses / Procedures Referred By Contac t Referred To Contact BR IMAGING Diagnoses Screening mammogram for breast cancer Procedures CRISTINA SCREENING SCREENING MAMMOGRAPHY BI 2-[place] [address] [place] [address] Br Imaging [address] [place] [address] Referral ID Status Reason Start Date Expiration Date Visits Requested Visits Authorized [id number] Authorized Auto-Generat ed Referral 02/08/2022 03/10/2023 1 1 Specialty Diagnoses / Procedures Referred By Contac t Referred To Contact Shorty Teresa MD [address] [place] [address] Referral ID Status Reason Start Date Expiration Date Visits Re quested Visits Authorized [id number] Closed 1 1 Specialty Diagnoses / Procedures Referred By Contac t Referred To Contact Diagnoses Hyperparathyroidism (HCC) Procedures CONSULT TO ENDOCRINE SURGERY OFFICE/OUTPATIENT [facility] 60-74 MINUTES Hayden Flanagan MD [address] [place] [address] Referral ID Status Reason Start Date Expiration Date Visits Requested Visits Authorized [id number] Pending Review PCP Requested Referral 09/13/2022 09/13/2023 1 1 Specialty Diagnoses / Procedures Referred By Contac t Referred To Contact Diagnoses Primary hyperparathyroidism (HCC) Procedures REFER TO PACC - PRE ANESTHESIA CONSULTATION CLINIC OFFICE/OUTPATIENT [facility] MDM 60-74 MINUTES Leydi Vance MD [address] [place] [address] Referral ID Status Reason Start Date Expiration Date Visits Requested Visits Authorized [id number] Pending Review PCP Requested Referral 12/03/2022 12/03/2023 1 1 Specialty Diagnoses / Procedures Referred By Contact Referred To Contact MOLECULAR & FUNCTIONAL IMAGING Diagnoses Primary hyperparathyroidism (HCC) Hypercalcemia Procedures NM PARATHYROID W SPECT/CT PARATHYROID IMAGING W/TOMOGRAPHIC SPECT & CT Leydi Vance MD [address] [place] [address] Molecular [facility] Functional [facility] [address] [place] [address] Referral ID Status Reason Start Date Expiration Date Visits Requested Visits Authorized [id number] Pending Review Auto-Generat ed Referral 12/03/2022 01/02/2024 1 1 Specialty Diagnoses / Procedures Referred By Contact Referred To Contact [facility] [place] Diagnoses Primary hyperparathyroidism (HCC) Procedures ECG COMPLETE ECG ROUTINE ECG W/LEAST 12 LDS W/I&R Leydi Vance MD [address] [place] [address] [facility] [place] [address] [place] [address] Referral ID Status Reason Start Date Expiration Date Visits Requested Visits Authorized [id number] Pending Review Auto-Generat ed Referral 12/03/2022 12/03/2023 [...] DATE CREATED AUTHOR AUTHOR'S ORGANIZ ATION 01/05/2023 [facility] DATE CREATED AUTHOR AUTHOR'S ORGANIZ ATION [facility]/2023 [facility] DATE CREATED AUTHOR AUTHOR'S ORGANIZ ATION 07/28/2023 [facility] Source Comments (unrecognize d section and content) In the event this informatio n is protected by the Federal Confidentiality of Alcohol and Drug Abuse Patient Records regulations: The Federal rules restrict any use of the information to criminally investigate or prosecute any alcohol or drug abuse patient.[facility] the event this information is protected by the Federal Confidentiality of Alcohol and Drug Abuse Patient Records regulations: The Federal rules restrict any use of the information to criminally investigate or prosecute any alcohol or drug abuse patient.[facility] the event this information is protected by the Federal Confidentiality of Alcohol and Drug Abuse Patient Records regulations: The Federal rules restrict any use of the information to criminally investigate or prosecute any alcohol or drug abuse patient.[facility] the event this information is protected by the Federal Confidentiality of Alcohol and Drug Abuse Patient Records regulations: The Federal rules restrict any use of the information to criminally investigate or prosecute any alcohol or drug abuse patient.[facility] the event this information is protected by the Federal Confidentiality of Alcohol and Drug Abuse Patient Records regulations: The Federal rules restrict any use of the information to criminally investigate or prosecute any alcohol or drug abuse patient.[facility] the event this information is protected by the Federal Confidentiality of Alcohol and Drug Abuse Patient Records regulations: The Federal rules restrict any use of the information to criminally investigate or prosecute any alcohol or drug abuse patient.[facility] the event this information is protected by the Federal Confidentiality of Alcohol and Drug Abuse Patient Records regulations: The Federal rules restrict any use of the information to criminally investigate or prosecute any alcohol or drug abuse patient.[facility] the event this information is protected by the Federal Confidentiality of Alcohol and Drug Abuse Patient Records regulations: The Federal rules restrict any use of the information to criminally investigate or prosecute any alcohol or drug abuse patient.[facility] the event this information is protected by the Federal Confidentiality of Alcohol and Drug Abuse Patient Records regulations: The Federal rules restrict any use of the information to criminally investigate or prosecute any alcohol or drug abuse patient.[facility] the event this information is protected by the Federal Confidentiality of Alcohol and Drug Abuse Patient Records regulations: The Federal rules restrict any use of the information to criminally investigate or prosecute any alcohol or drug abuse patient.[facility] the event this information is protected by the Federal Confidentiality of Alcohol and Drug Abuse Patient Records regulations: The Federal rules restrict any use of the information to criminally investigate or prosecute any alcohol or drug abuse patient.[facility] the event this information is protected by the Federal Confidentiality of Alcohol and Drug Abuse Patient Records regulations: The Federal rules restrict any use of the information to criminally investigate or prosecute any alcohol or drug abuse patient.[facility] the event this information is protected by the Federal Confidentiality of Alcohol and Drug Abuse Patient Records regulations: The Federal rules restrict any use of the information to criminally investigate or prosecute any alcohol or drug abuse patient.[facility] the event this information is protected by the Federal Confidentiality of Alcohol and Drug Abuse Patient Records regulations: The Federal rules restrict any use of the information to criminally investigate or prosecute any alcohol or drug abuse patient.[facility] the event this information is protected by the Federal Confidentiality of Alcohol and Drug Abuse Patient Records regulations: The Federal rules restrict any use of the information to criminally investigate or prosecute any alcohol or drug abuse patient.[facility]In the event this information is protected by the Federal Confidentiality of Alcohol and Drug Abuse Patient Records regulations: The Federal rules restrict any use of the information to criminally investigate or prosecute any alcohol or drug abuse patient.[facility]In the event this information is protected by the Federal Confidentiality of Alcohol and Drug Abuse Patient Records regulations: The Federal rules restrict any use of the information to criminally investigate or prosecute any alcohol or drug abuse patient.[facility] the event this information is protected by the Federal Confidentiality of Alcohol and Drug Abuse Patient Records regulations: The Federal rules restrict any use of the information to criminally investigate or prosecute any alcohol or drug abuse patient.[facility]In the event this information is protected by the Federal Confidentiality of Alcohol and Drug Abuse Patient Records regulations: The Federal rules restrict any use of the information to criminally investigate or prosecute any alcohol or drug abuse patient.[facility] HospitalIn the event this information is protected by the Federal Confidentiality of Alcohol and Drug Abuse Patient Records regulations: The Federal rules restrict any use of the information to criminally investigate or prosecute any alcohol or drug abuse patient.[facility] HospitalIn the event this information is protected by the Federal Confidentiality of Alcohol and Drug Abuse Patient Records regulations: The Federal rules restrict any use of the information to criminally investigate or prosecute any alcohol or drug abuse patient.[facility] HospitalIn the event this information is protected by the Federal Confidentiality of Alcohol and Drug Abuse Patient Records regulations: The Federal rules restrict any use of the information to criminally investigate or prosecute any alcohol or drug abuse patient.[facility] HospitalIn the event this information is protected by the Federal Confidentiality of Alcohol and Drug Abuse Patient Records regulations: The Federal rules restrict any use of the information to criminally investigate or prosecute any alcohol or drug abuse patient.[facility] HospitalIn the event this information is protected by the Federal Confidentiality of Alcohol and Drug Abuse Patient Records regulations: The Federal rules restrict any use of the information to criminally investigate or prosecute any alcohol or drug abuse patient.[facility] HospitalIn the event this information is protected by the Federal Confidentiality of Alcohol and Drug Abuse Patient Records regulations: The Federal rules restrict any use of the information to criminally investigate or prosecute any alcohol or drug abuse patient.[facility] HospitalIn the event this information is protected by the Federal Confidentiality of Alcohol and Drug Abuse Patient Records regulations: The Federal rules restrict any use of the information to criminally investigate or prosecute any alcohol or drug abuse patient.[facility] HospitalIn the event this information is protected by the Federal Confidentiality of Alcohol and Drug Abuse Patient Records regulations: The Federal rules restrict any use of the information to criminally investigate or prosecute any alcohol or drug abuse patient.[facility] the event this information is protected by the Federal Confidentiality of Alcohol and Drug Abuse Patient Records regulations: The Federal rules restrict any use of the information to criminally investigate or prosecute any alcohol or drug abuse patient.[facility]In the event this information is protected by the Federal Confidentiality of Alcohol and Drug Abuse Patient Records regulations: The Federal rules restrict any use of the information to criminally investigate or prosecute any alcohol or drug abuse patient.[facility] HospitalIn the event this information is protected by the Federal Confidentiality of Alcohol and Drug Abuse Patient Records regulations: The Federal rules restrict any use of the information to criminally investigate or prosecute any alcohol or drug abuse patient.[facility]In the event this information is protected by the Federal Confidentiality of Alcohol and Drug Abuse Patient Records regulations: The Federal rules restrict any use of the information to criminally investigate or prosecute any alcohol or drug abuse patient.[facility] HospitalIn the event this information is protected by the Federal Confidentiality of Alcohol and Drug Abuse Patient Records regulations: The Federal rules restrict any use of the information to criminally investigate or prosecute any alcohol or drug abuse patient.[facility] HospitalIn the event this information is protected by the Federal Confidentiality of Alcohol and Drug Abuse Patient Records regulations: The Federal rules restrict any use of the information to criminally investigate or prosecute any alcohol or drug abuse patient.[facility]In the event this information is protected by the Federal Confidentiality of Alcohol and Drug Abuse Patient Records regulations: The Federal rules restrict any use of the information to criminally investigate or prosecute any alcohol or drug abuse patient.[facility] HospitalIn the event this information is protected by the Federal Confidentiality of Alcohol and Drug Abuse Patient Records regulations: The Federal rules restrict any use of the information to criminally investigate or prosecute any alcohol or drug abuse patient.[facility] HospitalIn the event this information is protected by the Federal Confidentiality of Alcohol and Drug Abuse Patient Records regulations: The Federal rules restrict any use of the information to criminally investigate or prosecute any alcohol or drug abuse patient.[facility]In the event this information is protected by the Federal Confidentiality of Alcohol and Drug Abuse Patient Records regulations: The Federal rules restrict any use of the information to criminally investigate or prosecute any alcohol or drug abuse patient.[facility] HospitalIn the event this information is protected by the Federal Confidentiality of Alcohol and Drug Abuse Patient Records regulations: The Federal rules restrict any use of the information to criminally investigate or prosecute any alcohol or drug abuse patient.[facility] HospitalIn the event this information is protected by the Federal Confidentiality of Alcohol and Drug Abuse Patient Records regulations: The Federal rules restrict any use of the information to criminally investigate or prosecute any alcohol or drug abuse patient.[facility] HospitalIn the event this information is protected by the Federal Confidentiality of Alcohol and Drug Abuse Patient Records regulations: The Federal rules restrict any use of the information to criminally investigate or prosecute any alcohol or drug abuse patient.[facility] HospitalIn the event this information is protected by the Federal Confidentiality of Alcohol and Drug Abuse Patient Records regulations: The Federal rules restrict any use of the information to criminally investigate or prosecute any alcohol or drug abuse patient.[facility] HospitalIn the event this information is protected by the Federal Confidentiality of Alcohol and Drug Abuse Patient Records regulations: The Federal rules restrict any use of the information to criminally investigate or prosecute any alcohol or drug abuse patient.[facility] HospitalIn the event this information is protected by the Federal Confidentiality of Alcohol and Drug Abuse Patient Records regulations: The Federal rules restrict any use of the information to criminally investigate or prosecute any alcohol or drug abuse patient.[facility] HospitalIn the event this information is protected by the Federal Confidentiality of Alcohol and Drug Abuse Patient Records regulations: The Federal rules restrict any use of the information to criminally investigate or prosecute any alcohol or drug abuse patient.[facility] HospitalIn the event this information is protected by the Federal Confidentiality of Alcohol and Drug Abuse Patient Records regulations: The Federal rules restrict any use of the information to criminally investigate or prosecute any alcohol or drug abuse patient.[facility] HospitalIn the event this information is protected by the Federal Confidentiality of Alcohol and Drug Abuse Patient Records regulations: The Federal rules restrict any use of the information to criminally investigate or prosecute any alcohol or drug abuse patient.[facility] HospitalIn the event this information is protected by the Federal Confidentiality of Alcohol and Drug Abuse Patient Records regulations: The Federal rules restrict any use of the information to criminally investigate or prosecute any alcohol or drug abuse patient.[facility] HospitalIn the event this information is protected by the Federal Confidentiality of Alcohol and Drug Abuse Patient Records regulations: The Federal rules restrict any use of the information to criminally investigate or prosecute any alcohol or drug abuse patient.[facility] HospitalIn the event this information is protected by the Federal Confidentiality of Alcohol and Drug Abuse Patient Records regulations: The Federal rules restrict any use of the information to criminally investigate or prosecute any alcohol or drug abuse patient.[facility] HospitalIn the event this information is protected by the Federal Confidentiality of Alcohol and Drug Abuse Patient Records regulations: The Federal rules restrict any use of the information to criminally investigate or prosecute any alcohol or drug abuse patient.[facility] HospitalIn the event this information is protected by the Federal Confidentiality of Alcohol and Drug Abuse Patient Records regulations: The Federal rules restrict any use of the information to criminally investigate or prosecute any alcohol or drug abuse patient.[facility] HospitalIn the event this information is protected by the Federal Confidentiality of Alcohol and Drug Abuse Patient Records regulations: The Federal rules restrict any use of the information to criminally investigate or prosecute any alcohol or drug abuse patient.[facility] HospitalIn the event this information is protected by the Federal Confidentiality of Alcohol and Drug Abuse Patient Records regulations: The Federal rules restrict any use of the information to criminally investigate or prosecute any alcohol or drug abuse patient.[facility] HospitalIn the event this information is protected by the Federal Confidentiality of Alcohol and Drug Abuse Patient Records regulations: The Federal rules restrict any use of the information to criminally investigate or prosecute any alcohol or drug abuse patient.[facility] HospitalIn the event this information is protected by the Federal Confidentiality of Alcohol and Drug Abuse Patient Records regulations: The Federal rules restrict any use of the information to criminally investigate or prosecute any alcohol or drug abuse patient.[facility] Reason for Visit (unrecogniz ed section and content) Specialty Diagnoses / Procedures Referred By Antione macisa Referred To Contact Family Practice / FAMILY MEDICINE Diagnoses Open Celulitis blister/Possible UTI Procedures 4C EST Self Arnold Mcconnell MD [address] [place] [address] Referral ID Status Reason Start Date Expiration Date V isits Requested Visits Authorized [id number] Closed Financial Clearance Required - OON Payor [...] Follow Up 6 month 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 Reason Comments Consult UTI Reason Comments Follow Up Reason Comments Referral Request Thyroid Surgeon Reason Comments orders for medication infusion Reason Comments Non-Chemotherapy Treatment Specialty Diagnoses / Procedures Referred By Contac t Referred To Contact Diagnoses Other osteoporosis, unspecified pathological fracture presence Procedures INJECTION, ZOLEDRONIC ACID, 1 MG Hayden Flanagan MD [address] [place] [address] Tan Pending Sale To [facility] [address] [place] [address] Referral ID Status Reason Start Date Expiration Date V isits Requested Visits Authorized [id number] Authorized 09/13/2022 09/14/2023 1 1 Reason Onset [...] 60-74 MINUTES Hayden Flanagan MD [address] [place] [address] Referral ID Status Reason Start Date Expiration Date V isits Requested Visits Authorized [id number] Closed PCP Requested Referral 09/13/2022 09/13/2023 1 1 Reason Comments preop pacc / OR MM 02/08/23 Parathyroide ctomy Reason Onset Date Comments Refill Request 12/19/2022 Reason Comments New Knee Pain Reason Comments Anesthesia Consult Reason Comments Mammogram Order Reason Comments Follow Up Reason Comments Follow Up 4 month follow up Care Teams (unrecognized sec tion and content) 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 Service Supervisor Relationship Specialty Start Date End Date Shorty Teresa MD [address] [place], [place] [id number] PCP - General Family Practice 03/27/17 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 Service Supervisor Relationship Specialty Start Date End Date Shorty Teresa MD [address] [place], [place] [id number] PCP - General Family Practice 03/27/17 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 Service Supervisor Relationship Specialty Start Date End Date Shorty Teresa MD [address] [facility] [place] [address] PCP - General Family Practice 03/27/17 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 Service Supervisor Relationship Specialty Start Date End Date Shorty Teresa MD [address] [place] [place] [address] PCP - General Family Practice 03/27/17 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 Service Supervisor Relationship Specialty Start Date End Date Shorty Teresa MD [address] [place] [place] [address] PCP - General Family Practice 03/27/17 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 Service Supervisor Relationship Specialty Start Date End Date Shorty Teresa MD [address] [place] [place] [address] PCP - General Family Practice 03/27/17 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 Service Supervisor Relationship Specialty Start Date End Date Shorty Teresa MD [address] [place] [place] [address] PCP - General Family Practice 03/27/17 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 Service Supervisor Relationship Specialty Start Date End Date Shorty Teresa MD [address] [place] [place] [address] PCP - General Family Medicine 03/27/17 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 Service Supervisor Relationship Specialty Start Date End Date Shorty Teresa MD [address] [place] [address] PCP - General Family Medicine 03/27/17 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 Service Supervisor Relationship Specialty Start Date End Date Shorty Teresa MD [address] [place] [address] PCP - General Family Medicine 03/27/17 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 Service Supervisor Relationship Specialty Start Date End Date Shorty Teresa MD [address] [place] [address] PCP - General Family Medicine 03/27/17 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 Service Supervisor Relationship Specialty Start Date End Date Shorty Teresa MD [address] [place] [address] PCP - General Family Medicine 03/27/17 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 Service Supervisor Relationship Specialty Start Date End Date Shorty Teresa MD [address] [place] [address] PCP - General Family Medicine 03/27/17 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 Service Supervisor Relationship Specialty Start Date End Date Shorty Teresa MD [address] [place] [address] PCP - General Family Medicine 03/27/17 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 Service Supervisor Relationship Specialty Start Date End Date Shorty Teresa MD [address] [place] [address] PCP - General Family Medicine 03/27/17 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 Service Supervisor Relationship Specialty Start Date End Date Shorty Teresa MD [address] [place] [address] PCP - General Family Medicine 03/27/17 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 Service Supervisor Relationship Specialty Start Date End Date Shorty Teresa MD [address] [place] [address] PCP - General Family Medicine 03/27/17 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 Service Supervisor Relationship Specialty Start Date End Date Shorty Teresa MD [address] [place] [address] PCP - General Family Medicine 03/27/17 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 Service Supervisor Relationship Specialty Start Date End Date Shorty Teresa MD [address] [place] [address] PCP - General Family Medicine 03/27/17 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 Service Supervisor Relationship Specialty Start Date End Date Shorty Teresa MD [address] [place] [address] PCP - General Family Medicine 03/27/17 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 Service Supervisor Relationship Specialty Start Date End Date Shorty Teresa MD [address] [place] [address] PCP - General Family Medicine 03/27/17 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 Service 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 Relationship Specialty Start Date End Date Shorty Teresa MD [address] [place] [address] PCP - General Family Medicine 03/27/17 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 Service Supervisor Relationship Specialty Start Date End Date Shorty Teresa MD [address] [place] [address] PCP - General Family Medicine 03/27/17 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 Service 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 Relationship Specialty Start Date End Date Shorty Teresa MD [address] [place] [address] PCP - General Family Medicine 03/27/17 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 Service 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 Relationship Specialty Start Date End Date Shorty Teresa MD [address] [place] [address] PCP - General Family Medicine 03/27/17 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 Service Supervisor Relationship Specialty Start Date End Date Shorty Teresa MD [address] [place] [address] PCP - General Family Medicine 03/27/17 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 Service Supervisor Relationship Specialty Start Date End Date Shorty Teresa MD [address] [place] [address] PCP - General Family Medicine 03/27/17 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 Service Supervisor Relationship Specialty Start Date End Date Shorty Teresa MD [address] [place] [address] PCP - General Family Medicine 03/27/17 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 Service Supervisor Relationship Specialty Start Date End Date Shorty Teresa MD [address] [place], [place] [address] PCP - General Family Medicine 03/27/17 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 Service Supervisor Relationship Specialty Start Date End Date Shorty Teresa MD [address] [place], [place] [address] PCP - General Family Medicine 03/27/17 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 [facility] [employer] [facility]. provides no warranty or guarantee of the accuracy or completeness of information in this document.
[2023-07-29] MEDS: Vancomycin HCl 250 MG Capsule 500 MG PO ×3 (00:56→12:31)
[2023-07-29] MEDS: MELATONIN 3 MG TABLET PO ×2 (00:56→22:37)
[2023-07-29] MEDS: HYDROcodone Bitartrate/Apap 5/325 Tablet PO ×4 (01:12→22:38)
--- NOTE | 2023-07-29 02:50 | VDLE_ITS ---
Reason For Study: Left leg swelling Procedure LEFT This is a venous duplex using B-mode, color GSV is normal. flow and spectral Doppler. CFV is compressible, spontaneous, phasic, Exam performed portable in patient room. competent, and demonstrates normal Techically difficult due to edema and augmentation. patient unable to tolerate probe pressure FV is compressible, spontaneous, phasic, and compression. competent and demonstrates normal Calf veins not well visualized due to pain augmentation. from cellulitis. POP V is compressible, spontaneous, phasic, competent and demonstrates normal augmentation. T/P Trunk is compressible. FV mid-distal visualized with color only, appear patent. PTV and PeroV visualized with color only, appear patent. VL/Venous Duplex US, Unilateral Interpretation Summary Deep veins of the left lower extremity are patent and compressible segmentally. There is no evidence of left lower extremity deep vein thrombosis. The left great saphenous vein soren ears patent and compressible segmentally. Limited study Ordering Physician: Quang Campos Referring Physician: Prabhakar Teresa Performed By: Johanna Horta RVT
--- NOTE | 2023-07-29 03:00 | CT_ITS ---
EXAM: CT ABDOMEN AND PELVIS WITHOUT INTRAVENOUS CONTRAST CLINICAL INDICATION: Acute diarrhea w/ hx of C. diff. Eval for colitis TECHNIQUE: Helically acquired images were obtained of the abdomen and pelvis without intravenous contrast. This CT exam was performed using one or more of the following dose reduction techniques: automated exposure control, adjustment of the mA and/or kV according to patient size, and/or use of iterative reconstruction technique. RADIATION DOSE: CTDIvol = 21.43 mGy, DLP = 1022.35 mGy-cm COMPARISON: No relevant prior studies available. FINDINGS: LOWER THORAX: Left basilar air space disease. No cardiomegaly. No significant pericardial effusion. ABDOMEN: LIVER: Unremarkable. Homogeneous. GALLBLADDER AND BILE DUCTS: Cholecystectomy. No intra- or extrahepatic biliary ductal dilation. PANCREAS: Unremarkable. No focal cystic mass. SPLEEN: Unremarkable. Normal size without focal cystic or solid mass. ADRENALS: Unremarkable. No nodules. KIDNEYS AND URETERS: Unremarkable. Normal renal size and position. No hydronephrosis. STOMACH AND BOWEL: Unremarkable. No stomach or bowel distention. No focal inflammatory change. PELVIS: APPENDIX: No evidence of acute appendicitis. BLADDER: Unremarkable. REPRODUCTIVE: Hysterectomy. ABDOMEN and PELVIS: INTRAPERITONEAL SPACE: Unremarkable. No ascites or other fluid collection. No free air. BONES/JOINTS: Degenerative changes of the spine. No suspicious lytic or blastic abnormality. SOFT TISSUES: Unremarkable. No discrete abdominal or pelvic wall hernia. VASCULATURE: Atherosclerotic changes of the abdominal aorta without aneurysm. LYMPH NODES: Unremarkable. No enlarged lymph nodes. CT/Abdomen/Pelvis without Cont IMPRESSION: 1. Left basilar air space disease. Findings may indicate atelectasis or infection. 2. No evidence of colitis or other acute abnormalities in the abdomen/pelvis. Electronically Signed: Roly Arambula MD at 3:57 EST ,
[2023-07-29] MEDS: Vancomycin HCl 2,000 MG in 0.9% Normal Saline (500mL Bag) 500 ML 250 MG IV (03:30)
[2023-07-29 03:39] LABS: D-Dimer Quantitative (DVT/PE) < 0.27 FEU/ug/m (0.27-0.49)
[2023-07-29] MEDS: 0.9% Normal Saline (1000mL) 1,000 ML 75 ML IV ×2 (04:25→15:53)
[2023-07-29] MEDS: Potassium Chloride Oral Tablet 20 MEQ 40 MEQ PO ×2 (04:32→08:05)
--- NOTE | 2023-07-29 05:06 | PCM.RX.CS ---
Consult Antibiotic Management Pharmacy has been consulted to manage selected antibiotic: Vancomycin Type of Intervention Type of Consult: New start Suspected Infection Suspected Infection: Skin/Soft tissue Labs Labs: Sodium 140 mmol/L (136-145) 07/28/23 19:50 Potassium 3.0 mmol/L (3.5-5.1) L 07/28/23 19:50 Chloride 106 mmol/L (98-107) 07/28/23 19:50 Carbon Dioxide 30.0 mmol/L (21.0-32.0) 07/28/23 19:50 Anion Gap 4 (5-15) L 07/28/23 19:50 BUN 8 mg/dL (7-18) 07/28/23 19:50 Creatinine 0.65 mg/dL (0.55-1.02) 07/28/23 19:50 Est GFR (MDRD) Af Amer 114 mL/min (>60) 07/28/23 19:50 Est GFR (MDRD) Non-Af 94 mL/min (>60) 07/28/23 19:50 BUN/Creatinine Ratio 12.3 RATIO (10-20) 07/28/23 19:50 Glucose 123 mg/dL (74-106) H 07/28/23 19:50 Dosing Weight Weight used for dosin.5 kg Estimated Creatinine Clearance Estimated Creatinine Clearance: 75 Goal Trough Goal Trough: 15-20 mcg/mL Pharmacy Plan for Drug Dosing Pharmacy Plan for Drug Dosing: Pharmacy Service will continue to monitor and adjust dosing as required. Follow-Up Labs Follow-Up Labs: Trough: Vancomycin Date/Time Labs Ordered Labs to be done on [date and time ordered]: 07/30/23 @1500
[2023-07-29 06:00] VITALS: BP 126/70; PULSE 85; RESP 16; TEMP 37.1; O2SAT 95
[2023-07-29 06:50] LABS: Cholesterol 129 mg/dL (200); High Density Lipoprotein 82 mg/dL; Triglycerides 74 mg/dL; Very Low Density Lipoprotein 15 mg/dL (5-40)
[2023-07-29 07:31] LABS: Hemoglobin A1c 5.5 % (3.8-5.6)
[2023-07-29] MEDS: Ensure Plus High Protein 120 ML LIQUID PO ×2 (08:05→22:40)
[2023-07-29] MEDS: Tolterodine Tartrate 4 MG CAP.SA PO (08:05)
[2023-07-29] MEDS: Gabapentin 300 MG Capsule PO (08:06)
[2023-07-29] MEDS: dilTIAZem CD 300 MG Capsule PO (08:06)
[2023-07-29] MEDS: Multivitamins,Therapeutic Tablet 1 TABLET PO (08:06)
[2023-07-29] MEDS: Cholecalciferol (VIT D3) 25 MCG TABLET (1,000 UNITS) 50 MCG PO (08:06)
[2023-07-29] MEDS: Pantoprazole Sodium 40 MG Tablet PO (08:06)
[2023-07-29] MEDS: Calcium Carb/Vitamin D 1 TABLET Tablet PO ×2 (08:07→15:53)
[2023-07-29] MEDS: Oxybutynin 5 MG Tablet 2.5 MG PO ×2 (08:07→22:37)
[2023-07-29 08:21] VITALS: BP 138/75; PULSE 90; RESP 18; TEMP 36.6; O2SAT 93
--- NOTE | 2023-07-29 08:51 | PN.HOSP_ITS ---
Reason for Visit Reason for Visit: Diagnoses Hypokalemia (07/28/23) Cellulitis of left lower limb (07/28/23) Diarrhea, unspecified (07/28/23) Weakness (07/28/23) Personal history of other infectious and parasitic diseases (07/28/23) Objective Data Objective Data Vital Signs: Vital Signs Temp Pulse Resp BP Pulse Ox O2 Del Method 97.8 F 90 18 138/75 H 93 Room Air 07/29/23 08:21 07/29/23 08:21 07/29/23 08:21 07/29/23 08:21 07/29/23 08:21 07/29/23 08:21 Oxygen Delivery Method Room Air Weight: 199 lb 8.293 oz Body Mass Index (BMI) 38.9 Intake & Output: Intake and Output for Last 24 Hours 07/27/23 07/28/23 07/29/23 23:59 23:59 23:59 Intake Total 1000 / 1000 540 / 540 Balance 1000 / 1000 540 / 540 Lab / Micro Data 07/28/23 19:50 07/28/23 19:50 Labs: Laboratory Results - last 24 hr 07/28/23 19:50: WBC 10.5, RBC 4.30, Hgb 12.4, Hct 38.6, MCV 89.8, MCH 28.8, MCHC 32.1, RDW Std Deviation 42.0, RDW Coeff of Adriana 12.8, Plt Count 254, MPV 9.1, Immature Gran % (Auto) 0.400, Neut % (Auto) 73.7 H, Lymph % (Auto) 16.8 L, [place] % (Auto) 7.5, Eos % (Auto) 1.3, Baso % (Auto) 0.3, Absolute Neuts (auto) 7.7, Absolute Lymphs (auto) 1.76, Nucleated RBC % 0, D-Dimer Quant (PE/DVT) < 0.27 L, Sodium 140, Potassium 3.0 L, Chloride 106, Carbon Dioxide 30.0, Anion Gap 4 L, BUN 8, Creatinine 0.65, Est GFR (MDRD) Af Amer 114, Est GFR (MDRD) Non-Af 94, BUN/Creatinine Ratio 12.3, Glucose 123 H, Hemoglobin A1c 5.5, Calcium 9.0, Total Bilirubin 0.30, AST 16, ALT 23, Alkaline Phosphatase 117, Total Creatine Kinase 238 H, Troponin I High Sens 12, Total Protein 6.5, Albumin 2.9 L, Globulin 3.6, Albumin/Globulin Ratio 0.8 L 07/28/23 21:05: Urine Color Yellow, Urine Clarity Clear, Urine pH 6.0, Ur Specific Kilgore 1.010, Urine Protein 30 H, Urine Glucose (UA) Normal, Urine Ketones Negative, Urine Occult Blood 25 H, Urine Nitrite Negative, Urine Bilirubin Negative, Urine Urobilinogen Normal, Ur Leukocyte Esterase 25 H, Urine RBC 0 SEEN, Urine WBC 0-5 SEEN, Ur Squamous Epith Cells 0 SEEN, Urine Bacteria 0 SEEN, Urine Mucus 0 SEEN 07/29/23 06:06: Triglycerides 74, Cholesterol 129, LDL Cholesterol 32, VLDL Cholesterol 15, HDL Cholesterol 82 Radiography Diagnostic Testing: Radiology Impression Chest X-Ray 07/28/23 20:00 IMPRESSION: Normal x-ray examination of the chest. Electronically Signed: Richard Johns MD at 20:19 EST , Abdomen/Pelvis CT 07/29/23 03:00 IMPRESSION: 1. Left basilar air space disease. Findings may indicate atelectasis or infection. 2. No evidence of colitis or other acute abnormalities in the abdomen/pelvis. Electronically Signed: Roly Arambula MD at 3:57 EST , Physical Exam Narrative Seen and examined. Patient has significant left lower extremity swelling and erythema compared to the right without obvious wound or acute signs of trauma Patient completed 1 week of Augmentin and Z-Tayo. Patient has history of left- sided hemiplegia with contracture of left upper extremity. She has redness which has gotten worse in last 1 week. Patient admitted with loose stool 2-3 times but has not had single episode after admission on the floor. History of C. difficile colitis. Physical exam: General: Alert, Oriented x3, Cooperative HEENT: Atraumatic, PERRLA, EOMI, Normocephalic Oral: No Gingival or Mucosal Lesions/ Ulcerations Neck: Supple, No JVD, Negative Carotid Bruits Lungs: Air entry diminished in bilateral lung bases. No crepitation/rhonchi Cardiovascular: Regular rate, Regular Rhythm, Normal S1, Normal S2, No murmurs Abdomen: Bowel Sounds Present, Soft, Non Tender, Non-Distended : No renal angle tenderness. No suprapubic tenderness. Extremities: No edema, Capillary Refill Less than 3 Seconds Skin: Redness over the left lower two third leg below knee. Old scab present. No active discharge. Mild subcutaneous tenderness present Musculoskeletal: Left upper extremity contracture at elbow and wrist joints. Left lower extremity also weak. Neurological: Cranial nerves II-XII grossly intact, DTR 2+/4. No acute focal neurological deficit. Psych/Mental Status: Flat affect Assessment & Plan Assessment/Plan (1) Diarrhea: QUALIFIERS: Diarrhea type: presumed infectious Qualified Code(s): R19.7 - Diarrhea, unspecified (2) Hypokalemia: (3) Cellulitis: QUALIFIERS: Laterality: left Site of cellulitis: extremity Site of cellulitis of extremity: lower extremity Qualified Code(s): L03.116 - Cellulitis of left lower limb (4) Generalized weakness: PLAN: Plan 73-year-old female came to ED for generalized weakness, unable to ambulate/get around her home. She also has pneumonia with symptoms of cough chest congestion body aches last week and treated with Augmentin and Z-Tayo. Tested negative for COVID influenza RSV. No dysuria or hematuria. Had 2 episodes of loose bowel movement and took Imodium and improved. No chest pain or palpitation. History of C. difficile colitis. 1. Acute diarrhea with a known history of Clostridium difficile colitis - Admit to general medical floor under observation status with enteric precautions. Stool studies were ordered but patient did not had bowel movement after admi ssion. Was adequately volume resuscitated. Abdomen/pelvis CT shows left basilar airspace disease probably atelectasis. Patient does not have cough or URI symptoms. No evidence of colitis or other a cute abnormalities in the abdomen/pelvis. No stomach or bowel distention. No focal inflammatory changes. 07/29: Vancomycin 125 mg every 6 hourly. 2. Hypokalemia of 3 mmol/L present on admission: Potassium replaced. 3. Suspected Left lower extremity cellulitis in the setting of chronic LLE lymp hedema with chronic venous stasis - Start IV Vancomycin to cover Gram-positives including possible MRSA 07/29/2023: Venous duplex of left lower extremity is negative for DVT. 4. Recently diagnosed community acquired pneumonia - Noted with CXR's improved with treatment. 5. Generalized weakness and ambulatory dysfunction with frequent falls that have now caused her not to be able to live independently arising from #1 - #4 - Hold statin in case of potential myotoxicity and monitor for improvement. PT/OT and case management to consult and treat with help appreciated in advance. Ideally, she would like to go home with [facility] and home PT if possible. 6. Morbid obesity; with BMI of 40.1- Weight loss will be recommended. 7. OA; with Chronic Pain - Give Tylenol prn [id number] level 1-5/10 pain or fever. Give previously prescribed Hydrocodone prn for severe level 6-10/10 pain. 8. Essential hypertension - Continue home medications plus give prn IV Hydralazine for systolic blood pressure > 160 mm Hg. 9. Hyperlipidemia - Hold statin in case myotoxicity is contributing to #5. If she significantly improves while this agent is held consider treating with an alternative agent. 9. History of cancer - Noted. 10. History of CVA - Stable. 11. History of migraine headaches - Continue current regimen. 12. Depression - Resume home medications as previous. 13. Osteoporosis - Stable. 14. DVT prophylaxis - Lovenox 40 mg sq BID plus SCD's. Laboratory Results 07/28/23 19:50: WBC 10.5, RBC 4.30, Hgb 12.4, Hct 38.6, MCV 89.8, MCH 28.8, MCHC 32.1, RDW Std Deviation 42.0, RDW Coeff of Adriana 12.8, Plt Count 254, MPV 9.1, Immature Gran % (Auto) 0.400, Neut % (Auto) 73.7 H, Lymph % (Auto) 16.8 L, [place] % (Auto) 7.5, Eos % (Auto) 1.3, Baso % (Auto) 0.3, Absolute Neuts (auto) 7.7, Absolute Lymphs (auto) 1.76, Nucleated RBC % 0, D-Dimer Quant (PE/DVT) < 0.27 L, Sodium 140, Potassium 3.0 L, Chloride 106, Carbon Dioxide 30.0, Anion Gap 4 L, BUN 8, Creatinine 0.65, Est GFR (MDRD) Af Amer 114, Est GFR (MDRD) Non-Af 94, BUN/Creatinine Ratio 12.3, Glucose 123 H, Hemoglobin A1c 5.5, Calcium 9.0, Total Bilirubin 0.30, AST 16, ALT 23, Alkaline Phosphatase 117, Total Creatine Kinase 238 H, Troponin I High Sens 12, Total Protein 6.5, Albumin 2.9 L, Globulin 3.6, Albumin/Globulin Ratio 0.8 L 07/28/23 21:05: Urine Color Yellow, Urine Clarity Clear, Urine pH 6.0, Ur Specific Kilg[place] 1.010, Urine Protein 30 H, Urine Glucose (UA) Normal, Urine Ketones Negative, Urine Occult Blood 25 H, Urine Nitrite Negative, Urine Bilirubin Negative, Urine Urobilinogen Normal, Ur Leukocyte Esterase 25 H, Urine RBC 0 SEEN, Urine WBC 0-5 SEEN, Ur Squamous Epith Cells 0 SEEN, Urine Bacteria 0 SEEN, Urine Mucus 0 SEEN 07/29/23 06:06: Triglycerides 74, Cholesterol 129, LDL Cholesterol 32, VLDL Cholesterol 15, HDL Cholesterol 82 . Charges/Coding Visit Charges Inpatient E&M: 61101 Subs Hosp L2
[2023-07-29] MEDS: Vancomycin HCl 1,250 MG in 0.9% Normal Saline (250mL Bag) 250 ML 167 MG IV (15:53)
[2023-07-29 15:57] VITALS: BP 153/79; PULSE 99; RESP 18; TEMP 37.7; O2SAT 93
--- NOTE | 2023-07-29 16:36 | CASEMGMT ---
Spoke with patient to complete RENNER form. RENNER form explained to patient who voiced understanding and signed form. Original form placed in pt?s chart and copy provided to?patient. Yael Waterman, Discharge Planning Asst
[2023-07-29] MEDS: Vancomycin 125 MG/5 ML Susp PO.SYRINGE PO ×2 (17:46→22:59)
[2023-07-29 19:20] LABS: M R Staph aureus DNA By PCR Negative (Negative); Probe Check PASS; Specimen Processing Control PASS
[2023-07-29 22:35] VITALS: BP 155/92; PULSE 93; RESP 16; TEMP 37; O2SAT 95
[2023-07-29] MEDS: Famotidine 20 MG Tablet PO (22:37)
[2023-07-29] MEDS: Amitriptyline 25 MG Tablet 75 MG PO (22:37)
[2023-07-30] MEDS: Benzonatate 100 MG Capsule PO ×3 (01:20→20:18)
[2023-07-30] MEDS: Vancomycin HCl 1,250 MG in 0.9% Normal Saline (250mL Bag) 250 ML 167 MG IV (04:10)
[2023-07-30] MEDS: 0.9% Normal Saline (1000mL) 1,000 ML 75 ML IV (04:34)
[2023-07-30] MEDS: HYDROcodone Bitartrate/Apap 5/325 Tablet PO ×2 (04:34→12:45)
[2023-07-30] MEDS: Vancomycin 125 MG/5 ML Susp PO.SYRINGE PO ×3 (04:34→18:25)
[2023-07-30 04:41] VITALS: BP 146/82; PULSE 87; RESP 16; TEMP 36.9; O2SAT 92
[2023-07-30 07:54] LABS: Absolute Lymphocyte Count 1.39 X10^3/uL (0.83-4.51); Absolute Neutrophil Count 4.3 X10^3/uL (2.0-7.7); Basophil# 0.02 X10^3/uL; Basophil% 0.3 % (0-1); Eosinophil# 0.34 X10^3/uL; Eosinophils% 5.1 % (0-5); Hematocrit 32.5 % (37-47); Hemoglobin 10.4 g/dL (12.0-15.0); Lymphocyte # 1.39 X10^3/ul (0.83-4.51); Lymphocyte % 20.8 % (19-41); Mean Corpuscular Hgb 29.5 pg (27.0-32.0); Mean Corpuscular Volume 92.3 fL (81-99); Mean Platelet Vol. 9.1 fl (6.2-12.0); Monocyte# 0.65 X10^3/uL; Monocyte% 9.7 % (0-10); NRBC Flagged by Analyzer 0 % (0-5); Neutrophil # 4.27 X10^3/uL (2.7-7.7); Neutrophil % 63.8 % (47-70); Platelet Count 201 K/mm3 (150-450); RBC Distribution Width CV 13.2 % (11.6-14.6); RBC Distribution Width SD 44.2 fl (35.1-43.9); Red Blood Count 3.52 M/mm3 (4.2-5.4); White Blood Count 6.7 K/mm3 (4.4-11.0)
[2023-07-30 08:34] VITALS: BP 137/71; PULSE 87; RESP 16; TEMP 36.8; O2SAT 91
[2023-07-30] MEDS: Potassium Chloride Oral Tablet 20 MEQ 40 MEQ PO (08:53)
[2023-07-30] MEDS: dilTIAZem CD 300 MG Capsule PO (08:54)
[2023-07-30] MEDS: Calcium Carb/Vitamin D 1 TABLET Tablet PO ×2 (08:54→18:20)
[2023-07-30] MEDS: Multivitamins,Therapeutic Tablet 1 TABLET PO (08:54)
[2023-07-30] MEDS: Oxybutynin 5 MG Tablet 2.5 MG PO ×2 (08:55→20:19)
[2023-07-30] MEDS: Tolterodine Tartrate 4 MG CAP.SA PO (08:55)
[2023-07-30] MEDS: Pantoprazole Sodium 40 MG Tablet PO (08:56)
[2023-07-30] MEDS: Cholecalciferol (VIT D3) 25 MCG TABLET (1,000 UNITS) 50 MCG PO (08:56)
[2023-07-30 08:57] LABS: ALB/GLOB Ratio 0.7 RATIO (0.9-2.4); AST(SGOT) 12 U/L (15-37); Alanine Aminotransfer ALT/SGPT 16 U/L (13-56); Alkaline Phosphatase 89 U/L (45-117); Anion Gap 3 (5-15); BUN 6 mg/dL (7-18); BUN/Creat Ratio 19.5 RATIO (10-20); Calcium,Total 7.4 mg/dL (8.5-10.1); Chloride 116 mmol/L (98-107); Creatinine, Serum 0.31 mg/dL (0.55-1.02); EST Glomerular Filtration Rate 223 mL/min (>60); Est Glom Filt Rate - Afr Amer 270 mL/min (>60); Estimated Creatinine Clearance 34.91 ml/min; Glucose 108 mg/dL (74-106); Potassium 3.2 mmol/L (3.5-5.1); Sodium Level 142 mmol/L (136-145)
[2023-07-30] MEDS: Gabapentin 300 MG Capsule PO (09:07)
--- NOTE | 2023-07-30 09:52 | WOUNDNOTE ---
skin photo: left lower leg
--- NOTE | 2023-07-30 09:55 | WOUNDNOTE ---
Was asked by nursing to see patient for lymphedema to the left arm and left the leg. patient has a history of a stroke with left sided weakness. the left arm and left are pretty flaccid. patient does wear compression stockings at home. Pt's skin is too tender at this time to wear the compression stockings. Pt did allow this nurse to apply CORINA wraps to the LLE. There are no open wounds noted. there is some redness noted to the mid lower leg most likely venous stasis changes. no warm noted. gently washed the legs with soap and water. pat dry. applied CORINA wraps to the LLE. tried the compression stocking on the RLE, but patient had this nurse remove the stocking d/t being uncomfortable.
--- NOTE | 2023-07-30 11:31 | VDUE_ITS ---
Reason For Study: RUE Pain Right Proximal Left Proximal Right jugular vein is spontaneous, widely Left subclavian vein is spontaneous, widely patent, phasic, with no intraluminal patent, phasic, with no intraluminal echogenicity noted. echogenicity noted. Right subclavian vein is spontaneous, widely patent, phasic, with no intraluminal echogenicity noted. Right Lower Arm Right radial vein is compressible. Right ulnar vein is compressible. Right Arm Right axillary vein is spontaneous, patent, phasic, competent, compressible and demonstrates augmentation. Right brachial vein is compressible. Cephalic Vein is NONCOMPRESSIBLE and dilated from mid bicep to AC. Proximal vessel and AC to wrist appear compressible. Right basilic vein is compressible. Patient Safety Stat results delivered to M/S 3 Nurse responsible for patient and faxed to Charge. VL/Venous Duplex US, Unilateral Interpretation Summary There is no evidence of right upper extremity deep vein thrombosis. Superficial thrombophlebitis right upper arm cephalic vein from the mid bicep to the antecubital space. Patent and compressible right basilic vein Normal flow patterns left subclavian vein Ordering Physician: Zachary Reynolds Referring Physician: Prabhakar Teresa Performed By: Helio Lopez RVT ???
--- NOTE | 2023-07-30 13:47 | PN.HOSP_ITS ---
Reason for Visit Reason for Visit: Diagnoses Cellulitis of left lower limb (07/28/23) Diarrhea, unspecified (07/28/23) Personal history of other infectious and parasitic diseases (07/28/23) Objective Data Objective Data Vital Signs: Vital Signs Temp Pulse Resp BP Pulse Ox O2 Del Method 98.3 F 87 16 137/71 H 91 Room Air 07/30/23 08:34 07/30/23 08:34 07/30/23 08:34 07/30/23 08:34 07/30/23 08:34 07/30/23 10:00 Oxygen Delivery Method Room Air Weight: 199 lb 8.293 oz Body Mass Index (BMI) 38.9 Intake & Output: Intake and Output for Last 24 Hours 07/28/23 07/29/23 07/30/23 23:59 23:59 23:59 Intake Total 1000 / 1000 2088.75 / 2088.75 1416.25 / 1416.25 Balance 1000 / 1000 2088.75 / 2088.75 1416.25 / 1416.25 Lab / Micro Data 07/30/23 07:38 07/30/23 07:38 Labs: Laboratory Results - last 24 hr 07/29/23 17:40: MRSA (PCR) Negative 07/30/23 07:38: WBC 6.7, RBC 3.52 L, Hgb 10.4 L, Hct 32.5 L, MCV 92.3, MCH 29.5, MCHC 32.0, RDW Std Deviation 44.2 H, RDW Coeff of Adriana 13.2, Plt Count 201, MPV 9.1, Immature Gran % (Auto) 0.300, Neut % (Auto) 63.8, Lymph % (Auto) 20.8, St[place]ard % (Auto) 9.7, Eos % (Auto) 5.1 H, Baso % (Auto) 0.3, Absolute Neuts (auto) 4.3, Absolute Lymphs (auto) 1.39, Nucleated RBC % 0, Sodium 142, Potassium 3.2 L, Chloride 116 H, Carbon Dioxide 23.0, Anion Gap 3 L, BUN 6 L, Creatinine 0.31 L, Estim Creat Clear Calc 34.91, Est GFR (MDRD) Af Amer 270, Est GFR (MDRD) Non-Af 223, BUN/Creatinine Ratio 19.5, Glucose 108 H, Calcium 7.4 L, Total Bilirubin 0.20, AST 12 L, ALT 16, Alkaline Phosphatase 89, Total Protein 5.0 L, Albumin 2.0 L, Globulin 3.0, Albumin/Globulin Ratio 0.7 L Micro: Microbiology 07/28/23 21:05 Sputum, Expectorated/Coughed Gram Stain - Final 07/28/23 21:05 Sputum, Expectorated/Coughed Respiratory Culture - Final Presumptive C albicans Physical Exam Narrative Seen and examined. Patient has significant left lower extremity swelling and erythema compared to the right without obvious wound or acute signs of trauma that is it is wrapped up. Right lower extremity is swollen and complain of pain, proximal to the IV line. Will discontinue IV line. Patient admitted with loose stool 2-3 times but has not had single episode after admission on the floor. History of C. difficile colitis. Physical exam: General: Alert, Oriented x3, Cooperative HEENT: Atraumatic, PERRLA, EOMI, Normocephalic Oral: No Gingival or Mucosal Lesions/ Ulcerations Neck: Supple, No JVD, Negative Carotid Bruits Lungs: Air entry diminished in bilateral lung bases. No crepitation/rhonchi Cardiovascular: Regular rate, Regular Rhythm, Normal S1, Normal S2, No murmurs Abdomen: Bowel Sounds Present, Soft, Non Tender, Non-Distended : No renal angle tenderness. No suprapubic tenderness. Extremities: Redness of right upper extremity, possible superficial venous thr ombosis. Capillary Refill Less than 3 Seconds Skin: Redness over the left lower two third leg below knee. Old scab present. No active discharge. Mild subcutaneous tenderness present Musculoskeletal: Left upper extremity contracture at elbow and wrist joints. Left lower extremity also weak. Neurological: Cranial nerves II-XII grossly intact, DTR 2+/4. No acute focal neurological deficit. Psych/Mental Status: Flat affect Assessment & Plan Assessment/Plan (1) Diarrhea: QUALIFIERS: Diarrhea type: presumed infectious Qualified Code(s): R19.7 - Diarrhea, unspecified (2) Hypokalemia: (3) Cellulitis: QUALIFIERS: Site of cellulitis: extremity Site of cellulitis of extremity: lower extremity Laterality: left Qualified Code(s): L03.116 - Cellulitis of left lower limb (4) Generalized weakness: PLAN: Plan 73-year-old female came to ED for generalized weakness, unable to ambulate/get around her home. She also has pneumonia with symptoms of cough chest congestion body aches last week and treated with Augmentin and Z-Tayo. Tested negative for COVID influenza RSV. No dysuria or hematuria. Had 2 episodes of loose bowel movement and took Imodium and improved. No chest pain or palpitation. History of C. difficile colitis. 1. Acute diarrhea with a known history of Clostridium difficile colitis - Admit to general medical floor under observation status with enteric precautions. Stool studies were ordered but patient did not had bowel movement after admission. Was adequately volume resuscitated. Abdomen/pelvis CT shows left basilar airspace disease probably atelectasis. Patient does not have cough or URI symptoms. No evidence of colitis or other acute abnormalities in the abdomen/pelvis. No stomach or bowel distention. No focal inflammatory changes. 07/29: Vancomycin 125 mg every 6 hourly. 07/30: She did not had bowel movement for 2 days. Started on psyllium. Vancomycin is being continued on clinical suspicion basis. 2. Hypokalemia of 3 mmol/L present on admission: Potassium replaced. Continue potassium replacement. Serum magnesium and phosphorus ordered. 3. Suspected Left lower extremity cellulitis in the setting of chronic LLE lymphedema with chronic venous stasis - Start IV Vancomycin to cover Gram- positives including possible MRSA 07/29/2023: Venous duplex of left lower extremity is negative for DVT. 07/30: Patient has right upper extremity pain, tenderness swelling proximal to the left antecubital IV line, clinically suggestive of superficial thrombophlebitis. Venous duplex ordered and preliminary suggest SVT although no official report yet. Discontinue IV line. Patient had left upper extremity contracture therefore IV vancomycin changed to the oral Keflex and doxycycline. MRSA nasal screen is negative. 4. Recently diagnosed community acquired pneumonia - Noted with CXR's improved with treatment. 5. Generalized weakness and ambulatory dysfunction with frequent falls that have now caused her not to be able to live independently arising from #1 - #4 - Hold statin in case of potential myotoxicity and monitor for improvement. PT/OT and case management to consult and treat with help appreciated in advance. Ideally, she would like to go home with [facility] and home PT if possible. 07/31: Patient does not want to go to senior living. 6. Morbid obesity; with BMI of 40.1- Weight loss will be recommended. 7. OA; with Chronic Pain - Give Tylenol prn [id number] level 1-5/10 pain or fever. Give previously prescribed Hydrocodone prn for severe level 6-10/10 pain. 8. Essential hypertension - Continue home medications plus give prn IV Hydralazine for systolic blood pressure > 160 mm Hg. 9. Hyperlipidemia - Hold statin in case myotoxicity is contributing to #5. If she significantly improves while this agent is held consider treating with an alternative agent. 9. History of cancer - Noted. 10. History of CVA - Stable. 11. History of migraine headaches - Continue current regimen. 12. Depression - Resume home medications as previous. 13. Osteoporosis - Stable. 14. DVT prophylaxis - Lovenox 40 mg sq BID plus SCD's. Charges/Coding Visit Charges Inpatient E&M: 96955 Subs Hosp L2
[2023-07-30] MEDS: Doxycycline 100 MG CAPSULE PO ×2 (14:12→20:19)
[2023-07-30] MEDS: Ensure Plus High Protein 120 ML LIQUID PO ×3 (14:15→20:20)
[2023-07-30] MEDS: Cephalexin 500 MG Capsule PO ×2 (14:18→20:18)
[2023-07-30] MEDS: Psyllium 1 PACKET PO ×2 (14:18→20:21)
--- NOTE | 2023-07-30 14:38 | CASEMGMT ---
JERRICA DIMAS into pt room, pt getting ready to work with FORGING PRESS OPERATOR. Noted yesterday pt ambulated 3 feet. Introduced self to pt and made her aware that this JERRICA DIMAS will be back after her session to discuss dc planning. FORGING PRESS OPERATOR states pt was unable to hold her cup. Discussed with pt as she was doing her therapy to think to herself if she feels she can manage at home or if there is someone able to assist her or if pt may need further therapy prior to dcing home. Pt states she will think about this. FORGING PRESS OPERATOR to discuss session with JERRICA DIMAS once finished.
--- NOTE | 2023-07-30 15:24 | CASEMGMT ---
Social Work: JO ANN met with pt to discuss Advance Directives. Pt confirms she has completed a living will and health care POA naming her daughter. SW informed pt the documents are not on file at [facility] and requested they be provided for scanning in the EMR. Per patient request SW assisted pt in contacting daughter to bring in ADs when she comes to visit this evening.
--- NOTE | 2023-07-30 15:27 | CASEMGMT ---
Social Work SW notified by therapy pt is modA for STS, walked 3 ft, and cannot hold a cup with either hand d/t reported pain and past IV site. Recommending SNF prior to home. JO ANN spoke with pt. Introduced self and role. Explained therapies recommendation of receiving skilled therapy at a SNF prior to returning home. Pt immediately denied, stating she was not going to a [facility] as she has too many responsibilities and things to do at home . SW inquired about those responsibilities. Pt stated she has to care for her cat and dog. SW inquired about the roommate assisting. Pt stated the roommate is currently assisting, but he has his own things to do and cannot do it permanently . SW agreed stating the goal is pt would be returning home after a short term stay at the SNF. Pt stated she wants to go home with HHC therapy. SW educated to coordinating skilled HHC at time of DC home, however, HHC provides limited therapy in the home. Explained pt needing extensive assist for tasks and not ambulatory, thus recommending SNF to better meet pt's care needs. Pt stated she does not know any facilities in [place] she would want to go to. JO ANN has [employer] a printed list of [facility] that accept pt's insurance with quality and resource data from [employer]. SW verbally named the SNFs and star ratings. Pt initially denied [facility], [facility], [facility], [facility], [facility] or [facility]. SW informed [facility] is not [facility] with insurance. SW provided other options in [facility] verbally and requested pt provide 3 choices. Pt requested she remain close to dtr and son, whom live in [place] and [place]. SW offered [place] SNF. Pt denied stating, No my son lives there and he won't come see me. I want to be closer to my dtr . SW provided the other options. Pt requesting [facility] as first choice, [facility] second choice - stating, I can tolerate it there, same with [facility]. It's new so they couldn't have messed it up that much yet . SW agreed to place referrals to all 3 SNFs. Educated to SNFs needing to provide approval/denial, and educated to precert process - approval/denial. Pt expressed understanding. JO ANN will continue to update pt with plans. Plan: DC to SNF, skilled, pending precert, when medically ready. Cherie Pritchett, RETICLE PRINTER STRATEGIC ACCOUNT MANAGER
[2023-07-30 15:35] LABS: Vancomycin, Trough Level 16.3 ug/mL (5.0-15.0)
[2023-07-30 15:35] LABS: Magnesium 1.6 mg/dL (1.6-2.6); Phosphorus 2.5 mg/dL (2.5-4.9)
--- NOTE | 2023-07-30 16:28 | CASEMGMT ---
Received vm from [facility] keycase assembler Skye Virk. TC back to Skye at , left vm with update on pt dc plan per her request.
[2023-07-30 17:23] VITALS: BP 169/93; PULSE 94; RESP 16; TEMP 36.9; O2SAT 88
[2023-07-30] MEDS: oxyCODONE 5 MG Tablet PO (18:25)
[2023-07-30 20:07] VITALS: BP 165/89; PULSE 106; RESP 18; TEMP 37.1; O2SAT 92
[2023-07-30] MEDS: Famotidine 20 MG Tablet PO (20:18)
[2023-07-30] MEDS: Amitriptyline 25 MG Tablet 75 MG PO (20:20)
[2023-07-30] MEDS: Senna/Docusate Sodium 1 Tablet 2 TABLET PO (20:30)
[2023-07-31] MEDS: HYDROcodone Bitartrate/Apap 5/325 Tablet PO ×4 (00:33→22:05)
[2023-07-31] MEDS: Vancomycin 125 MG/5 ML Susp PO.SYRINGE PO ×3 (00:35→11:53)
[2023-07-31 02:07] VITALS: BP 162/84; PULSE 92; RESP 18; TEMP 36.8; O2SAT 97
[2023-07-31] MEDS: Cephalexin 500 MG Capsule PO ×3 (05:36→20:46)
[2023-07-31 07:36] LABS: Absolute Lymphocyte Count 2.01 X10^3/uL (0.83-4.51); Absolute Neutrophil Count 3.8 X10^3/uL (2.0-7.7); Basophil# 0.03 X10^3/uL; Basophil% 0.4 % (0-1); Eosinophil# 0.41 X10^3/uL; Eosinophils% 5.9 % (0-5); Hematocrit 35.4 % (37-47); Hemoglobin 11.2 g/dL (12.0-15.0); Lymphocyte # 2.01 X10^3/ul (0.83-4.51); Lymphocyte % 28.8 % (19-41); Mean Corp Hgb Conc 31.6 g/dL (32-36); Mean Corpuscular Hgb 28.7 pg (27.0-32.0); Mean Corpuscular Volume 90.8 fL (81-99); Mean Platelet Vol. 9.4 fl (6.2-12.0); Monocyte# 0.74 X10^3/uL; Monocyte% 10.6 % (0-10); NRBC Flagged by Analyzer 0 % (0-5); Neutrophil # 3.78 X10^3/uL (2.7-7.7); Platelet Count 256 K/mm3 (150-450); RBC Distribution Width CV 12.9 % (11.6-14.6); RBC Distribution Width SD 42.5 fl (35.1-43.9)
[2023-07-31 08:00] VITALS: BP 170/66; PULSE 80; RESP 18; TEMP 36.7; O2SAT 98
[2023-07-31 08:28] LABS: ALB/GLOB Ratio 0.7 RATIO (0.9-2.4); AST(SGOT) 23 U/L (15-37); Alanine Aminotransfer ALT/SGPT 21 U/L (13-56); Albumin, Serum 2.4 g/dL (3.2-5.0); Alkaline Phosphatase 113 U/L (45-117); Anion Gap 4 (5-15); BUN 6 mg/dL (7-18); Calcium,Total 8.7 mg/dL (8.5-10.1); Chloride 109 mmol/L (98-107); EST Glomerular Filtration Rate 165 mL/min (>60); Est Glom Filt Rate - Afr Amer 200 mL/min (>60); Estimated Creatinine Clearance 60.91 ml/min; Globulin 3.5 g/dL (2.2-4.2); Glucose 106 mg/dL (74-106); Potassium 3.7 mmol/L (3.5-5.1); Protein, Total 5.9 g/dL (6.4-8.2); Sodium Level 139 mmol/L (136-145)
[2023-07-31] MEDS: Gabapentin 300 MG Capsule PO (08:37)
[2023-07-31] MEDS: Potassium Chloride Oral Tablet 20 MEQ 40 MEQ PO (08:38)
[2023-07-31] MEDS: Multivitamins,Therapeutic Tablet 1 TABLET PO (08:38)
[2023-07-31] MEDS: dilTIAZem CD 300 MG Capsule PO (08:39)
[2023-07-31] MEDS: Calcium Carb/Vitamin D 1 TABLET Tablet PO ×2 (08:39→15:38)
[2023-07-31] MEDS: Cholecalciferol (VIT D3) 25 MCG TABLET (1,000 UNITS) 50 MCG PO (08:42)
[2023-07-31] MEDS: Pantoprazole Sodium 40 MG Tablet PO (08:42)
[2023-07-31] MEDS: Doxycycline 100 MG CAPSULE PO ×2 (08:43→20:47)
[2023-07-31] MEDS: Tolterodine Tartrate 4 MG CAP.SA PO ×2 (08:43→08:44)
[2023-07-31] MEDS: Senna/Docusate Sodium 1 Tablet 2 TABLET PO ×2 (08:44→20:45)
[2023-07-31] MEDS: Psyllium 1 PACKET PO ×2 (08:44→20:47)
[2023-07-31] MEDS: Oxybutynin 5 MG Tablet 2.5 MG PO ×2 (08:45→20:46)
--- NOTE | 2023-07-31 10:41 | DCINST_ITS ---
Discharge Instructions Follow Up Care Test Results: Test results from this visit will be discussed in further detail at your follow- up appointment, if applicable. Discharge Plan Admission Admit Date/Time: 07/28/23 22:31 Attending Provider: Zachary Reynolds Primary Care Provider: Miguel Teresa Consulting Providers: Quang Campos; Quang Chiang Discharge Orders/Prescriptions Prescriptions: No Action diltiazem HCl 300 MG capsule,extended release 24hr 300 mg PO DAILY Patient Comments: HEART gabapentin 300 MG capsule 300 mg PO DAILY Patient Comments: NERVE PAIN multivitamin [Daily Multiple] 1 EACH tablet 1 ea PO DAILY Patient Comments: VITAMIN docusate sodium [DOK] 100 MG capsule 100 mg PO DAILY Patient Comments: STOOL SOFTENER furosemide 20 MG tablet 40 mg PO DAILY Patient Comments: DIURETIC cholecalciferol (vitamin D3) [Vitamin D3] 2,000 UNIT capsule 2,000 unit PO DAILY potassium chloride [Klor-Con M20] 20 MEQ tablet 10 meq PO DAILY oxybutynin chloride 5 MG tablet 2.5 mg PO BID hydrocodone-acetaminophen 1 TABLET tablet 2 tab PO QHS amitriptyline 75 MG tablet 75 mg PO QHS atorvastatin 10 mg Tablet 10 mg PO QHS hydrocortisone 2.5 % Cream 1 applic TOPICAL BID PRN (Reason: Hemorrhoids) omeprazole 40 mg Capsule,Delayed Release(Dr/Ec) 40 mg PO DAILY famotidine 20 mg tablet 20 mg PO QHS Patient Comments: Take 1 tablet by mouth at bedtime as needed. hydrocodone-acetaminophen 5-325 mg tablet 1 tab PO DAILY PRN (Reason: pain) calcium carbonate-vitamin D3 [Oyster Shell Calcium-Vit D3] 500 mg-10 mcg (400 unit) tablet 1 tab PO BID Patient Comments: TAKE 1 TABLET BY MOUTH THREE TIMES DAILY tolterodine 4 mg capsule,extended release 24hr 4 mg PO DAILY Patient Comments: TAKE 1 CAPSULE BY MOUTH ONCE DAILY Referrals / Follow Up: Miguel Teresa MD [Primary Care Provider] -
--- NOTE | 2023-07-31 11:52 | CASEMGMT ---
Social Work SW spoke with [facility] in TCU and they are unable to accept pt. SW met with pt and updated that [facility] cannot accept, however [facility] can accept. Pt states she is leaning toward [facility] but would want her daughter's input. Phone call to dgt Laura and informed of the above. Laura agreeable for pt to go to the [facility]. DC commercial escrow assistant updated and will notify [facility] to start precert. Pt notified. Plan: [facility], pending precert ISMAEL Spencer
--- NOTE | 2023-07-31 12:00 | CASEMGMT ---
Discharge Planning SNF referrals were made to [facility] and [facility] on 07/30 with both accepting. Patient's preferance is [facility]. Updates sent and askef for precert to be started. [facility] updated on foc. Yael Waterman, Discharge Planning Asst.
[2023-07-31] MEDS: Benzonatate 100 MG Capsule PO (12:21)
[2023-07-31] MEDS: Ensure Plus High Protein 120 ML LIQUID PO (14:14)
[2023-07-31 15:44] VITALS: BP 162/88; PULSE 88; RESP 18; TEMP 37.1; O2SAT 98
--- NOTE | 2023-07-31 16:43 | PN.HOSP_ITS ---
Reason for Visit Reason for Visit: Diagnoses Hypokalemia (07/28/23) Cellulitis of left lower limb (07/28/23) Diarrhea, unspecified (07/28/23) Weakness (07/28/23) Personal history of other infectious and parasitic diseases (07/28/23) Objective Data Objective Data Vital Signs: Vital Signs Temp Pulse Resp BP Pulse Ox O2 Del Method 98.7 F 88 18 162/88 H 98 Room Air 07/31/23 15:44 07/31/23 15:44 07/31/23 15:44 07/31/23 15:44 07/31/23 15:44 07/31/23 15:44 Oxygen Delivery Method Room Air Weight: 199 lb 8.293 oz Body Mass Index (BMI) 38.9 Intake & Output: Intake and Output for Last 24 Hours 07/29/23 07/30/23 07/31/23 23:59 23:59 23:59 Intake Total 2088.75 / 2088.75 2416.25 / 2416.25 650 / 650 Balance 2088.75 / 2088.75 2416.25 / 2416.25 650 / 650 Lab / Micro Data 07/31/23 07:00 07/31/23 07:00 Labs: Laboratory Results - last 24 hr 07/31/23 07:00: WBC 7.0, RBC 3.90 L, Hgb 11.2 L, Hct 35.4 L, MCV 90.8, MCH 28.7, MCHC 31.6 L, RDW Std Deviation 42.5, RDW Coeff of Adriana 12.9, Plt Count 256, MPV 9.4, Immature Gran % (Auto) 0.300, Neut % (Auto) 54.0, Lymph % (Auto) 28.8, Union % (Auto) 10.6 H, Eos % (Auto) 5.9 H, Baso % (Auto) 0.4, Absolute Neuts (auto) 3.8, Absolute Lymphs (auto) 2.01, Nucleated RBC % 0, Sodium 139, Potassium 3.7, Chloride 109 H, Carbon Dioxide 26.0, Anion Gap 4 L, BUN 6 L, Creatinine 0.40 L, Estim Creat Clear Calc 60.91, Est GFR (MDRD) Af Amer 200, Est GFR (MDRD) Non-Af 165, BUN/Creatinine Ratio 15.0, Glucose 106, Calcium 8.7, Total Bilirubin 0.40, AST 23, ALT 21, Alkaline Phosphatase 113, Total Protein 5.9 L, Albumin 2.4 L, Globulin 3.5, Albumin/Globulin Ratio 0.7 L Micro: Microbiology 07/28/23 21:05 Sputum, Expectorated/Coughed Gram Stain - Final 07/28/23 21:05 Sputum, Expectorated/Coughed Respiratory Culture - Final Presumptive C albicans Physical Exam Narrative Seen and examined. Patient has right upper extremity swollen, mildly painful and tender from superficial thrombophlebitis. Right lower leg pain and swelling getting better. IV line was discontinued yesterday from right upper extremity. Diarrhea has started. Physical exam: General: Alert, Oriented x3, Cooperative HEENT: Atraumatic, PERRLA, EOMI, Normocephalic Oral: No Gingival or Mucosal Lesions/ Ulcerations Neck: Supple, No JVD, Negative Carotid Bruits Lungs: Air entry diminished in bilateral lung bases. No crepitation/rhonchi Cardiovascular: Regular rate, Regular Rhythm, Normal S1, Normal S2, No murmurs Abdomen: Bowel Sounds Present, Soft, Non Tender, Non-Distended : No renal angle tenderness. No suprapubic tenderness. Extremities: Redness of right upper extremity, possible superficial venous thrombosis. Mild tenderness and edematous. Capillary Refill Less than 3 Seconds Skin: Redness over the left lower two third leg below knee. Old scab present. No active discharge. Mild subcutaneous tenderness present Musculoskeletal: Left upper extremity contracture at elbow and wrist joints. Left lower extremity also weak. Neurological: Cranial nerves II-XII grossly intact, DTR 2+/4. No acute focal neurological deficit. Psych/Mental Status: Flat affect Assessment & Plan Assessment/Plan (1) Diarrhea: QUALIFIERS: Diarrhea type: presumed infectious Qualified Code(s): R19.7 - Diarrhea, unspecified (2) Hypokalemia: (3) Cellulitis: QUALIFIERS: Site of cellulitis: extremity Site of cellulitis of extremity: lower extremity Laterality: left Qualified Code(s): L03.116 - Cellulitis of left lower limb (4) Generalized weakness: PLAN: Plan 73-year-old female came to ED for generalized weakness, unable to ambulate/get around her home. She also has pneumonia with symptoms of cough chest congestion body aches last week and treated with Augmentin and Z-Tayo. Tested negative for COVID influenza RSV. No dysuria or hematuria. Had 2 episodes of loose bowel movement and took Imodium and improved. No chest pain or palpitation. History of C. difficile colitis. 1. Acute diarrhea with a known history of Clostridium difficile colitis - Admit to general medical floor under observation status with enteric precautions. Stool studies were ordered but patient did not had bowel movement after admission. Was adequately volume resuscitated. Abdomen/pelvis CT shows left basilar airspace disease probably atelectasis. Patient does not have cough or URI symptoms. No evidence of colitis or other acute abnormalities in the abdomen/pelvis. No stomach or bowel distention. No focal inflammatory changes. 07/29: Vancomycin 125 mg every 6 hourly. 07/30: She did not had bowel movement for 2 days. Started on psyllium. V ancomycin is being continued on clinical suspicion basis. 07/31: I will discontinue vancomycin as clinical is C. difficile ruled out. Patient did not had bowel movement for 2 days and is started on stool softener yesterday. 2. Hypokalemia of 3 mmol/L present on admission: Potassium replaced. Continue potassium replacement. Serum magnesium and phosphorus ordered. 3. Suspected Left lower extremity cellulitis in the setting of chronic LLE lymphedema with chronic venous stasis - Start IV Vancomycin to cover Gram- positives including possible MRSA 07/29/2023: Venous duplex of left lower extremity is negative for DVT. 07/30: Patient has right upper extremity pain, tenderness swelling proximal to the left antecubital IV line, clinically suggestive of superficial thrombophlebitis. Venous duplex ordered and preliminary suggest SVT although no official report yet. Discontinue IV line. Patient had left upper extremity contracture therefore IV vancomycin changed to the oral Keflex and doxycycline. MRSA nasal screen is negative. 07/31: Venous duplex officially reported as no evidence of right upper extremity DVT. Superficial thrombophlebitis of right upper arm cephalic vein from mid bicep to antecubital space. Patent and compressible right basilic vein. Warm compression recommended. 4. Recently diagnosed community acquired pneumonia - Noted with CXR's improved with treatment. 5. Generalized weakness and ambulatory dysfunction with frequent falls that have now caused her not to be able to live independently arising from #1 - #4 - Hold statin in case of potential myotoxicity and monitor for improvement. PT/OT and case management to consult and treat with help appreciated in advance. Ideally, she would like to go home with [facility] and home PT if possible. 07/31: Patient does not want to go to group home. 6. Morbid obesity; with BMI of 40.1- Weight loss will be recommended. 7. OA; with Chronic Pain - Give Tylenol prn [id number] level 1-5/10 pain or fever. Give previously prescribed Hydrocodone prn for severe level 6-10/10 pain. 8. Essential hypertension - Continue home medications plus give prn IV Hydralazine for systolic blood pressure > 160 mm Hg. 9. Hyperlipidemia - Hold statin in case myotoxicity is contributing to #5. If she significantly improves while this agent is held consider treating with an alternative agent. 9. History of cancer - Noted. 10. History of CVA - Stable. 11. History of migraine headaches - Continue current regimen. 12. Depression - Resume home medications as previous. 13. Osteoporosis - Stable. 14. DVT prophylaxis - Lovenox 40 mg sq BID plus SCD's. Charges/Coding Visit Charges Inpatient E&M: 91711 Subs Hosp L2
[2023-07-31] MEDS: Amitriptyline 25 MG Tablet 75 MG PO (20:45)
[2023-07-31] MEDS: Famotidine 20 MG Tablet PO (20:46)
[2023-07-31] MEDS: Benzonatate 100 MG Capsule 200 MG PO (20:51)
[2023-07-31 21:00] VITALS: BP 166/89; PULSE 98; RESP 16; TEMP 36.9; O2SAT 91
[2023-08-01] MEDS: Cephalexin 500 MG Capsule PO ×2 (05:16→13:19)
[2023-08-01] MEDS: Benzonatate 100 MG Capsule 200 MG PO ×2 (05:16→13:19)
[2023-08-01] MEDS: HYDROcodone Bitartrate/Apap 5/325 Tablet PO ×2 (05:18→11:12)
[2023-08-01 05:21] VITALS: BP 151/88; PULSE 97; RESP 18; TEMP 36.8; O2SAT 91
[2023-08-01] MEDS: Calcium Carb/Vitamin D 1 TABLET Tablet PO (09:07)
[2023-08-01] MEDS: Gabapentin 300 MG Capsule PO (09:07)
[2023-08-01] MEDS: Cholecalciferol (VIT D3) 25 MCG TABLET (1,000 UNITS) 50 MCG PO (09:08)
[2023-08-01] MEDS: Potassium Chloride Oral Tablet 20 MEQ 40 MEQ PO (09:08)
[2023-08-01] MEDS: dilTIAZem CD 300 MG Capsule PO (09:08)
[2023-08-01] MEDS: Multivitamins,Therapeutic Tablet 1 TABLET PO (09:09)
[2023-08-01] MEDS: Oxybutynin 5 MG Tablet 2.5 MG PO (09:09)
[2023-08-01] MEDS: Doxycycline 100 MG CAPSULE PO (09:09)
[2023-08-01] MEDS: Pantoprazole Sodium 40 MG Tablet PO (09:10)
[2023-08-01] MEDS: Ensure Plus High Protein 120 ML LIQUID PO (09:13)
[2023-08-01 09:38] VITALS: BP 135/82; PULSE 87; RESP 16; TEMP 36.8; O2SAT 91
[2023-08-01 09:49] VITALS: PULSE 88
--- NOTE | 2023-08-01 10:10 | CASEMGMT ---
Discharge Planning [facility] has received precert. SW updated. Yael Waterman, Discharge Planning Asst.
--- NOTE | 2023-08-01 10:36 | TREXTCAR_ITS ---
Diet Diet Order/Speech Therapy: 07/29/23 02:36 Diet: Cardiac - Heart Healthy Is pt able to select menu?: Yes Routine Orders/Code Status Suppository Type: Dulcolax 10mg Suppository Frequency: Daily PRN Wound(s) lle: Wound Type: blisters Therapies Weight Bearing: Weight bearing as tolerated Extremity Affected:: Bilateral Lower and Bilateral Upper Physical Therapy: Eval and Treat Occupational Therapy: Eval and Treat Speech Therapy: Eval and Treat Problem/Diagnosis (1) Diarrhea: Status: Acute Code(s): R19.7 - Diarrhea, unspecified (2) Hypokalemia: Status: Acute Code(s): E87.6 - Hypokalemia (3) Cellulitis: Status: Acute Code(s): L03.90 - Cellulitis, unspecified (4) Generalized weakness: Status: Acute Code(s): R53.1 - Weakness Plan 73-year-old female came to ED for generalized weakness, unable to ambulate/get a round her home. She also has pneumonia with symptoms of cough chest congestion body aches last week and treated with Augmentin and Z-Tayo. Tested negative for COVID influenza RSV. No dysuria or hematuria. Had 2 episodes of loose bowel movement and took Imodium and improved. No chest pain or palpitation. History of C. difficile colitis. 1. Acute diarrhea with a known history of Clostridium difficile colitis - Admit to general medical floor under observation status with enteric precautions. Stool studies were ordered but patient did not had bowel movement after admission. Was adequately volume resuscitated. Abdomen/pelvis CT shows left basilar airspace disease probably atelectasis. Patient does not have cough or URI symptoms. No evidence of colitis or other acute abnormalities in the abdomen/pelvis. No stomach or bowel distention. No focal inflammatory changes. 07/29: Vancomycin 125 mg every 6 hourly. 07/30: She did not had bowel movement for 2 days. Started on psyllium. [facility] ncomycin is being continued on clinical suspicion basis. 07/31: I will discontinue vancomycin as clinical is C. difficile ruled out. Patient did not had bowel movement for 2 days and is started on stool softener yesterday. 2. Hypokalemia of 3 mmol/L present on admission: Potassium replaced. Continue potassium replacement. Serum magnesium and phosphorus ordered. 3. Suspected Left lower extremity cellulitis in the setting of chronic LLE lymphedema with chronic venous stasis - Start IV Vancomycin to cover Gram- positives including possible MRSA 07/29/2023: Venous duplex of left lower extremity is negative for DVT. 07/30: Patient has right upper extremity pain, tenderness swelling proximal to the left antecubital IV line, clinically suggestive of superficial thrombophlebitis. Venous duplex ordered and preliminary suggest SVT although no official report yet. Discontinue IV line. Patient had left upper extremity contracture therefore IV vancomycin changed to the oral Keflex and doxycycline. MRSA nasal screen is negative. 07/31: Venous duplex officially reported as no evidence of right upper extremity DVT. Superficial thrombophlebitis of right upper arm cephalic vein from mid bicep to antecubital space. Patent and compressible right basilic vein. Warm compression recommended. 4. Recently diagnosed community acquired pneumonia - Noted with CXR's improved with treatment. 5. Generalized weakness and ambulatory dysfunction with frequent falls that have now caused her not to be able to live independently arising from #1 - #4 - Hold statin in case of potential myotoxicity and monitor for improvement. PT/OT and case management to consult and treat with help appreciated in advance. Ideally, she would like to go home with [facility] and home PT if possible. 07/31: Patient does not want to go to [facility]. 6. Morbid obesity; with BMI of 40.1- Weight loss will be recommended. 7. OA; with Chronic Pain - Give Tylenol prn [id number] level 1-5/10 pain or fever. Give previously prescribed Hydrocodone prn for severe level 6-10/10 pain. 8. Essential hypertension - Continue home medications plus give prn IV Hydralazine for systolic blood pressure > 160 mm Hg. 9. Hyperlipidemia - Hold statin in case myotoxicity is contributing to #5. If she significantly improves while this agent is held consider treating with an alternative agent. 9. History of cancer - Noted. 10. History of CVA - Stable. 11. History of migraine headaches - Continue current regimen. 12. Depression - Resume home medications as previous. 13. Osteoporosis - Stable. 14. DVT prophylaxis - Lovenox 40 mg sq BID plus SCD's. Allergies/Procedures Done in Hospital Allergies hydrochlorothiazide Allergy (Verified 12/02/21 17:57) increases calcium metronidazole [From Flagyl] Allergy (Verified 12/02/21 17:57) Diarrhea triamterene Adverse Reaction (Verified 12/02/21 17:57) increases calcium Type of Care/Length of Stay Estimated LOS: Convalescent Care Less Than 30 days Type of Care Needed: Skilled Rehab Potential: Fair Prognosis: Fair Additional Orders/Day of Discharge Day of Discharge: 08/01/23 Discharge Plan Admission Admit Date/Time: 07/28/23 22:31 Primary Reason for Your Visit: CELLULITIS, WEAKNESSS, OLD STROKE Attending Provider: Zachary Reynolds Primary Care Provider: Miguel Teresa Consulting Providers: Quang Campos; Quang Chiang Discharge Orders/Prescriptions Prescriptions: New sennosides-docusate sodium [Stool Softener-Stimulant Laxat] 8.6-50 mg Tablet 2 tab PO BID PRN (Reason: CONSTIPATION) Qty: 0 0RF benzonatate 100 mg Capsule 200 mg PO TID PRN (Reason: COUGH) Qty: 0 0RF doxycycline monohydrate 100 mg Capsule 100 mg PO BID 5 Days Qty: 10 0RF cephalexin 500 mg Capsule 500 mg PO Q8 5 Days Qty: 15 0RF Daily Fiber (psyllium-aspart) 3 gram Powder In Packet 1 packet PO BID Qty: 0 0RF Rx Instructions: Goal is to have 1 bowel movement per day. Hold if more than 1 bowel movement per day Continued diltiazem HCl 300 MG capsule,extended release 24hr 300 mg PO DAILY Patient Comments: HEART gabapentin 300 MG capsule 300 mg PO DAILY Patient Comments: NERVE PAIN multivitamin [Daily Multiple] 1 EACH tablet 1 ea PO DAILY Patient Comments: VITAMIN docusate sodium [DOK] 100 MG capsule 100 mg PO DAILY Patient Comments: STOOL SOFTENER furosemide 20 MG tablet 40 mg PO DAILY Patient Comments: DIURETIC cholecalciferol (vitamin D3) [Vitamin D3] 2,000 UNIT capsule 2,000 unit PO DAILY oxybutynin chloride 5 MG tablet 2.5 mg PO BID hydrocodone-acetaminophen 1 TABLET tablet 2 tab PO QHS amitriptyline 75 MG tablet 75 mg PO QHS atorvastatin 10 mg Tablet 10 mg PO QHS hydrocortisone 2.5 % Cream 1 applic TOPICAL BID PRN (Reason: Hemorrhoids) famotidine 20 mg tablet 20 mg PO QHS Patient Comments: Take 1 tablet by mouth at bedtime as needed. hydrocodone-acetaminophen 5-325 mg tablet 1 tab PO DAILY PRN (Reason: pain) calcium carbonate-vitamin D3 [Oyster Shell Calcium-Vit D3] 500 mg-10 mcg (400 unit) tablet 1 tab PO BID Patient Comments: TAKE 1 TABLET BY MOUTH THREE TIMES DAILY tolterodine 4 mg capsule,extended release 24hr 4 mg PO DAILY Patient Comments: TAKE 1 CAPSULE BY MOUTH ONCE DAILY Changed potassium chloride [Klor-Con M20] 20 MEQ tablet 40 meq PO DAILY 30 Days Qty: 0 0RF Rx Instructions: FOR 7 DAYS THEN BMP Discontinued omeprazole 40 mg Capsule,Delayed Release(Dr/Ec) 40 mg PO DAILY Referrals / Follow Up: Miguel Teresa MD [Primary Care Provider] - 08/05/23 2:00 pm Disposition Disposition (needs filled in before D/C Order can be placed): Nursing Home Facility (1) Diarrhea Qualifiers: Diarrhea type: presumed infectious Qualified Code(s): R19.7 - Diarrhea, unspecified (3) Cellulitis Qualifiers: Site of cellulitis: extremity Site of cellulitis of extremity: lower extremity Laterality: left Qualified Code(s): L03.116 - Cellulitis of left lower limb
--- NOTE | 2023-08-01 10:47 | DS.PCM_ITS ---
Providers Date of Admission: 07/28/23 Date of Discharge: 08/01/23 Primary Care Physician: Dr. Miguel Teresa MD Reason For Visit: DIARRHEA, HYPOKALEMIA & GENERALIZED WEAKNESS Diagnosis Discharge Diagnosis (1) Diarrhea: Status: Acute Code(s): R19.7 - Diarrhea, unspecified Qualifiers: Diarrhea type: presumed infectious Qualified Code(s): R19.7 - Diarrhea, unspecified (2) Hypokalemia: Status: Acute Code(s): E87.6 - Hypokalemia (3) Cellulitis: Status: Acute Code(s): L03.90 - Cellulitis, unspecified Qualifiers: Laterality: left Site of cellulitis: extremity Site of cellulitis of extremity: lower extremity Qualified Code(s): L03.116 - Cellulitis of left lower limb (4) Generalized weakness: Status: Acute Code(s): R53.1 - Weakness Plan 73-year-old female came to ED for generalized weakness, unable to ambulate/get around her home. She also has pneumonia with symptoms of cough chest congestion body aches last week and treated with Augmentin and Z-Tayo. Tested negative for COVID influenza RSV. No dysuria or hematuria. Had 2 episodes of loose bowel movement and took Imodium and improved. No chest pain or palpitation. History of C. difficile colitis. 1. Acute diarrhea with a known history of Clostridium difficile colitis - Admit to general medical floor under observation status with enteric precautions. Stool studies were ordered but patient did not had bowel movement after admission. Was adequately volume resuscitated. Abdomen/pelvis CT shows left basilar airspace disease probably atelectasis. Patient does not have cough or URI symptoms. No evidence of colitis or other acute abnormalities in the abdomen/pelvis. No stomach or bowel distention. No focal inflammatory changes. 07/29: Vancomycin 125 mg every 6 hourly. 07/30: She did not had bowel movement for 2 days. Started on psyllium. Vancomycin is being continued on clinical suspicion basis. 07/31: I will discontinue vancomycin as clinical is C. difficile ruled out. Patient did not had bowel movement for 2 days and is started on stool softener yesterday. 07/22 patient is doing good on the stool softener. 2. Hypokalemia of 3 mmol/L present on admission: Potassium replaced. Continue potassium replacement. Serum magnesium and phosphorus ordered. 07/31: Continue potassium supplement 40 mEq daily and repeat BMP in 1 week. Serum magnesium and phosphorus normal. Magnesium chloride supplement ordered. 3. Suspected Left lower extremity cellulitis in the setting of chronic LLE lymphedema with chronic venous stasis - Start IV Vancomycin to cover Gram- positives including possible MRSA 07/29/2023: Venous duplex of left lower extremity is negative for DVT. 07/30: Patient has right upper extremity pain, tenderness swelling proximal to the left antecubital IV line, clinically suggestive of superficial thrombophlebitis. Venous duplex ordered and preliminary suggest SVT although no official report yet. Discontinue IV line. Patient had left upper extremity contracture therefore IV vancomycin changed to the oral Keflex and doxycycline. MRSA nasal screen is negative. 07/31: Venous duplex officially reported as no evidence of right upper extremity DVT. Superficial thrombophlebitis of right upper arm cephalic vein from mid bicep to antecubital space. Patent and compressible right basilic vein. Warm compression recommended. 4. Recently diagnosed community acquired pneumonia - Noted with CXR's improved with treatment. 5. Generalized weakness and ambulatory dysfunction with frequent falls that have now caused her not to be able to live independently arising from #1 - #4 - Hold statin in case of potential myotoxicity and monitor for improvement. PT/OT and case management to consult and treat with help appreciated in advance. Ideally, she would like to go home with [facility] and home PT if possible. 07/31: Patient does not want to go to skilled nursing. 6. Morbid obesity; with BMI of 40.1- Weight loss will be recommended. 7. OA; with Chronic Pain - Give Tylenol prn [id number] level 1-5/10 pain or fever. Give previously prescribed Hydrocodone prn for severe level 6-10/10 pain. 8. Essential hypertension - Continue home medications plus give prn IV Hydralazine for systolic blood pressure > 160 mm Hg. 9. Hyperlipidemia - Hold statin in case myotoxicity is contributing to #5. If she significantly improves while this agent is held consider treating with an alternative agent. 9. History of cancer - Noted. 10. History of CVA - Stable. 11. History of migraine headaches - Continue current regimen. 12. Depression - Resume home medications as previous. 13. Osteoporosis - Stable. 14. DVT prophylaxis - Lovenox 40 mg sq BID plus SCD's. Medications at Discharge Home Medications diltiazem HCl 300 mg capsule,extended release 24 hr 300 mg PO DAILY prevents migraines 04/09/15 gabapentin 300 mg capsule 300 mg PO DAILY nerve pain 04/09/15 docusate sodium 100 mg capsule (DOK) 100 mg PO DAILY constipation 02/09/17 furosemide 20 mg tablet 40 mg PO DAILY water retention 02/09/17 multivitamin (Daily Multiple tablet) 1 ea PO DAILY supplement 02/09/17 cholecalciferol (vitamin D3) 50 mcg (2,000 unit) capsule (Vitamin D3) 2,000 unit PO DAILY supplement 03/19/18 oxybutynin chloride 5 mg tablet 2.5 mg PO BID urinary issues 11/25/18 hydrocodone-acetaminophen 5-325mg 5mg-325mg 2 tab PO QHS 08/17/19 amitriptyline 75 mg tablet 75 mg PO QHS migraine prevention 05/02/20 atorvastatin 10 mg tablet 10 mg PO QHS cholesterol 02/28/21 hydrocortisone 2.5 % topical cream 1 applic topical BID PRN Hemorrhoids 03/01/21 calcium carbonate 500 mg-vitamin D3 10 mcg (400 unit) tablet (Oyster Shell Calcium-Vitamin D3) 1 tab PO BID 07/28/23 famotidine 20 mg tablet 20 mg PO QHS 07/28/23 hydrocodone-acetaminophen 5-325mg 5mg-325mg 1 tab PO DAILY PRN pain 07/28/23 tolterodine 4 mg capsule,extended release 24 hr 4 mg PO DAILY 07/28/23 benzonatate 100 mg capsule 200 mg (2 x 100 mg) PO TID PRN COUGH #0 caps 08/01/23 cephalexin 500 mg capsule 500 mg PO Q8 5 days #15 caps 08/01/23 doxycycline monohydrate 100 mg capsule 100 mg PO BID 5 days #10 caps 08/01/23 magnesium chloride 64 mg (magnesium chloride) tablet,delayed release (Mag 64) 128 mg (2 x 64 mg) PO BID 3 days #12 tabs 08/01/23 potassium chloride 20 mEq tablet,extended release(part/cryst) (Klor-Con M) 40 meq (2 x 20 mEq) PO DAILY supplement 30 days #0 tabs 08/01/23 psyllium husk (aspartame) 3 gram oral powder packet (Daily Fiber (psyllium- aspartame)) 1 packet PO BID #0 ea 08/01/23 sennosides 8.6 mg-docusate sodium 50 mg tablet (Stool Softener-Stimulant Laxative) 2 tab PO BID PRN CONSTIPATION #0 tabs 08/01/23 Physical Exam Narrative Seen and examined. Patient right upper extremity is wrapped up. Pain is better. Left leg swelling and pain also better. Wrapped up Physical exam: General: Alert, Oriented x3, Cooperative HEENT: Atraumatic, PERRLA, EOMI, Normocephalic Oral: No Gingival or Mucosal Lesions/ Ulcerations Neck: Supple, No JVD, Negative Carotid Bruits Lungs: Air entry diminished in bilateral lung bases. No crepitation/rhonchi Cardiovascular: Regular rate, Regular Rhythm, Normal S1, Normal S2, No murmurs Abdomen: Bowel Sounds Present, Soft, Non Tender, Non-Distended : No renal angle tenderness. No suprapubic tenderness. Extremities: Redness of right upper extremity, possible superficial venous thrombosis. Mild tenderness and edematous. Capillary Refill Less than 3 Seconds Skin: Redness over the left lower two third leg below knee. Old scab present. No active discharge. Mild subcutaneous tenderness present Musculoskeletal: Left upper extremity contracture at elbow and wrist joints. Left lower extremity also weak. Neurological: Cranial nerves II-XII grossly intact, DTR 2+/4. No acute focal neurological deficit. Psych/Mental Status: Flat affect Weight / BMI Weight Weight: 199 lb 8.293 oz Body Mass Index (BMI) 38.9 ABG / Lab / Microbiology Data 07/31/23 07:00 07/31/23 07:00 Microbiology: Microbiology 07/28/23 21:05 Sputum, Expectorated/Coughed Gram Stain - Final 07/28/23 21:05 Sputum, Expectorated/Coughed Respiratory Culture - Final Presumptive C albicans Meaningful Use Info Meaningful Use Diagnoses (Choose all that apply): None applicable Discharge Plan Admission Admit Date/Time: 07/28/23 22:31 Primary Reason for Your Visit: CELLULITIS, WEAKNESSS, OLD STROKE Attending Provider: Zachary Reynolds Primary Care Provider: Miguel Teresa Consulting Providers: Quang Campos; Quang Chiang Discharge Orders/Prescriptions Prescriptions: New sennosides-docusate sodium [Stool Softener-Stimulant Laxat] 8.6-50 mg Tablet 2 tab PO BID PRN (Reason: CONSTIPATION) Qty: 0 0RF benzonatate 100 mg Capsule 200 mg PO TID PRN (Reason: COUGH) Qty: 0 0RF doxycycline monohydrate 100 mg Capsule 100 mg PO BID 5 Days Qty: 10 0RF cephalexin 500 mg Capsule 500 mg PO Q8 5 Days Qty: 15 0RF Daily Fiber (psyllium-aspart) 3 gram Powder In Packet 1 packet PO BID Qty: 0 0RF Rx Instructions: Goal is to have 1 bowel movement per day. Hold if more than 1 bowel movement per day Mag 64 64 mg Tablet,Delayed Release (Dr/Ec) 128 mg PO BID 3 Days Qty: 12 0RF Continued diltiazem HCl 300 MG capsule,extended release 24hr 300 mg PO DAILY Patient Comments: HEART gabapentin 300 MG capsule 300 mg PO DAILY Patient Comments: NERVE PAIN multivitamin [Daily Multiple] 1 EACH tablet 1 ea PO DAILY Patient Comments: VITAMIN docusate sodium [DOK] 100 MG capsule 100 mg PO DAILY Patient Comments: STOOL SOFTENER furosemide 20 MG tablet 40 mg PO DAILY Patient Comments: DIURETIC cholecalciferol (vitamin D3) [Vitamin D3] 2,000 UNIT capsule 2,000 unit PO DAILY oxybutynin chloride 5 MG tablet 2.5 mg PO BID hydrocodone-acetaminophen 1 TABLET tablet 2 tab PO QHS amitriptyline 75 MG tablet 75 mg PO QHS atorvastatin 10 mg Tablet 10 mg PO QHS hydrocortisone 2.5 % Cream 1 applic TOPICAL BID PRN (Reason: Hemorrhoids) famotidine 20 mg tablet 20 mg PO QHS Patient Comments: Take 1 tablet by mouth at bedtime as needed. hydrocodone-acetaminophen 5-325 mg tablet 1 tab PO DAILY PRN (Reason: pain) calcium carbonate-vitamin D3 [Oyster Shell Calcium-Vit D3] 500 mg-10 mcg (400 unit) tablet 1 tab PO BID Patient Comments: TAKE 1 TABLET BY MOUTH THREE TIMES DAILY tolterodine 4 mg capsule,extended release 24hr 4 mg PO DAILY Patient Comments: TAKE 1 CAPSULE BY MOUTH ONCE DAILY Changed potassium chloride [Klor-Con M20] 20 MEQ tablet 40 meq PO DAILY 30 Days Qty: 0 0RF Rx Instructions: FOR 7 DAYS THEN BMP Discontinued omeprazole 40 mg Capsule,Delayed Release(Dr/Ec) 40 mg PO DAILY Referrals / Follow Up: Miguel Teresa MD [Primary Care Provider] - 08/05/23 2:00 pm Disposition Disposition (needs filled in before D/C Order can be placed): Shelter Facility Charges/Coding Visit Charges Inpatient E&M: 18802 Disch Hosp >30min
--- NOTE | 2023-08-01 11:11 | CASEMGMT ---
Social Work Precert has been obtained for admission to [place]. Physician updated and pt is ready for dc on this date. PASRR completed in [facility] for admission to SNF. DC physician assistant psychiatry made aware and will complete discharge. Disposition: [facility] [place], [facility] level of care ISMAEL Spencer
--- NOTE | 2023-08-01 11:31 | PHA.DC_ITS ---
Pharmacy [place] Med Reconciliation Pharmacy Service has performed discharge medication reconciliation for this patient. The patient's discharge medication list was reviewed for discrepancies and discrepancies were resolved. Medications at Discharge Home Medications diltiazem HCl 300 mg capsule,extended release 24 hr 300 mg PO DAILY prevents migraines 04/09/15 gabapentin 300 mg capsule 300 mg PO DAILY nerve pain 04/09/15 docusate sodium 100 mg capsule (DOK) 100 mg PO DAILY constipation 02/09/17 furosemide 20 mg tablet 40 mg PO DAILY water retention 02/09/17 multivitamin (Daily Multiple tablet) 1 ea PO DAILY supplement 02/09/17 cholecalciferol (vitamin D3) 50 mcg (2,000 unit) capsule (Vitamin D3) 2,000 unit PO DAILY supplement 03/19/18 oxybutynin chloride 5 mg tablet 2.5 mg PO BID urinary issues 11/25/18 hydrocodone-acetaminophen 5-325mg 5mg-325mg 2 tab PO QHS 08/17/19 amitriptyline 75 mg tablet 75 mg PO QHS migraine prevention 05/02/20 atorvastatin 10 mg tablet 10 mg PO QHS cholesterol 02/28/21 hydrocortisone 2.5 % topical cream 1 applic topical BID PRN Hemorrhoids 03/01/21 calcium carbonate 500 mg-vitamin D3 10 mcg (400 unit) tablet (Oyster Shell Calcium-Vitamin D3) 1 tab PO BID 07/28/23 famotidine 20 mg tablet 20 mg PO QHS 07/28/23 hydrocodone-acetaminophen 5-325mg 5mg-325mg 1 tab PO DAILY PRN pain 07/28/23 tolterodine 4 mg capsule,extended release 24 hr 4 mg PO DAILY 07/28/23 benzonatate 100 mg capsule 200 mg (2 x 100 mg) PO TID PRN COUGH #0 caps 08/01/23 cephalexin 500 mg capsule 500 mg PO Q8 5 days #15 caps 08/01/23 doxycycline monohydrate 100 mg capsule 100 mg PO BID 5 days #10 caps 08/01/23 potassium chloride 20 mEq tablet,extended release(part/cryst) (Klor-Con M) 40 meq (2 x 20 mEq) PO DAILY supplement 30 days #0 tabs 08/01/23 psyllium husk (aspartame) 3 gram oral powder packet (Daily Fiber (psyllium- aspartame)) 1 packet PO BID #0 ea 08/01/23 sennosides 8.6 mg-docusate sodium 50 mg tablet (Stool Softener-Stimulant Laxative) 2 tab PO BID PRN CONSTIPATION #0 tabs 08/01/23
[2023-08-01 12:07] VITALS: BP 149/88; PULSE 88; RESP 16; TEMP 36.7; O2SAT 94
--- NOTE | 2023-08-01 13:31 | CASEMGMT ---
Discharge Planning Discharge orders, signed med list, and transport time sent to [facility]. [facility] will transport patient by wheelchair at 2:30p. Nursing, SW, patient, and her daughter updated. Yael Waterman, Discharge Planning Asst.
[2023-08-01] MEDS: Magnesium Chloride 64 MG Delay Rel.Tablet 128 MG PO (14:24)
== END 2023-08-01 15:12 | disposition skilled nursing facility (03) ==
LOC: ED 21:55 → MS3 22:01
PROVIDERS: Admitting Provider Internal Medicine; Emergency Provider Student in an Organized Health Care Education/Training Program; PCP Family Medicine; Visit Provider Internal Medicine
DX: R19.7 Diarrhea, unspecified (principal); E66.01 Morbid (severe) obesity due to excess calories; Z68.41 Body mass index [BMI] 40.0-44.9, adult; R53.1 Weakness; L03.116 Cellulitis of left lower limb; R53.81 Other malaise; I10 Essential (primary) hypertension; E78.5 Hyperlipidemia, unspecified; G89.29 Other chronic pain; K21.9 Gastro-esophageal reflux disease without esophagitis; E87.6 Hypokalemia; Z79.899 Other long term (current) drug therapy; F32.A Depression, unspecified
CPT/HCPCS: 36415; 71045; 74176; 80053; 80061; 80202; 81001; 82550; 83036; 83735; 84100; 84484; 85025; 85379; 87070; 87205; 87641; 93005; 93971; 96361; 96365; 96366; 97110; 97162; 97167; 97530; 97535; 99221; 99285; J7030; J7040; J7050; P9612; A4216; G0378

== ENCOUNTER → 2023-09-03 | Outpatient (CLI) | payer MEDICARE, MEDICAID, SELFPAY ==
[2023-09-03 17:40] LABS: Amphetamine Urine VISTA NEGATIVE (<1000 ng/mL); Barbiturate Urine VISTA NEGATIVE (< 200 ng/mL); Benzodiazepine Urine VISTA NEGATIVE (< 200 ng/mL); Cocaine Urine VISTA NEGATIVE (< 300 ng/mL); Ecstacy Urine VISTA NEGATIVE (< 500 ng/mL); Methadone Urine VISTA NEGATIVE (< 300 ng/mL); PCP Urine VISTA NEGATIVE (< 25 ng/mL); THC Urine VISTA NEGATIVE (< 50 ng/mL); Vista UDS pH Range 5
--- OUTSIDE RECORDS SUMMARY | 2023-09-03 20:34 | XMS RPT_ITS | CCD ---
Author Name Unknown Address [address] [place] [address] Organization [facility] Care Team Providers Care Ink Blender Name Role Phone Shorty Teresa MD Primary Care Provider PROVIDER, UNKNOWN Referring Unavailable SHORTY TERESA Primary Care Unavailab Shorty Mason MD Primary Care Provider LEYDI VANCE Admitting Unavailable LEYDI VANCE Attending Unavailable SHORTY TERESA Primary Care Unavailab SHORTY Mason Primary Care Unavailab LEYDI Larry Referring Unavailable SHORTY TERESA Primary Care Unavailab LEYDI Larry Referring Unavailable SHORTY TERESA Primary Care Unavailab HAYDEN Solares Referring Unavailable SHORTY TERESA Primary Care Unavailab HAYDEN Solares Attending Unavailable SHORTY TERESA Primary Care Unavailab emerson CARSONNIHAYDEN Referring Unavailable SHORTY TERESA Primary Care Unavailab HAYDEN Solares Referring Unavailable SHORTY TERESA Primary Care Unavailab SHORTY Mason Primary Care Unavailab KASSANDRA Sanchez Attending Unavailable SHORTY TERESA Primary Care Unavailab SHORTY Mason Referring Unavailab HAYDEN Solares Attending Unavailable SHORTY TERESA Primary Care Unavailab SHORTY Mason Primary Care Unavailab SHORTY Mason Referring Unavailab SHORTY Mason Attending Unavailab SHORTY Mason Primary Care Unavailab SHORTY Mason Primary Care Unavailab SHORTY Mason Referring Unavailab ARNOL Rodriguez Referring Unavailable RANOL JONAS Attending Unavailable SHOTRY TERESA Primary Care Unavailab LEYDI Larry Referring Unavailable SHORTY TERESA Primary Care Unavailab SHORTY Mason Attending Unavailab SHORTY Mason Primary Care Unavailab LEYDI Larry Referring Unavailable SHORTY TERESA Primary Care Unavailab ARNOL Rodriguez Attending Unavailable SHORTY TERESA Primary Care Unavailab SHORTY Mason Primary Care Unavailab SHORTY Mason Attending Unavailab SHORTY Mason Primary Care Unavailab SHORTY Mason Attending Unavailab HAYDEN Solares Referring Unavailable LEYDI VANCE Attending Unavailable SHORTY TERESA Primary Care Unavailab SHORTY Mason Primary Care Unavailab SHORTY Mason Attending Unavailab SHORTY Mason Primary Care Unavailab LEYDI Larry Referring Unavailable SHORTY TERESA Primary Care Unavailab SHORTY Mason Primary Care Unavailab SHORTY Mason Attending Unavailab le Allergies Allergy Classification Reported Allergen(s) Allergy Type Date of Onset Reaction(s) Facility (20 sources) metroNIDAZOLE; Translations: [METRONIDAZOLE] Drug Allergy 7 GI Upset [facility] (6 sources) Thiazides; Translations: [THIAZIDES] Drug Intolerance 6 Other: See Comments [facility] (20 sources) Thiazides Drug Intolerance 6 Other: See Comments [facility] Medications Current Medications Medication Drug Class(es) [...] Onset: 3 Chronic Fluid and electrolyte disorders (3 sources) Hypokalemia; Translations: [Hypokalemia] Onset: 4 Episodic Genitourinary symptoms and ill-defined conditions (2 sources) Increased frequency of urination; Translations: [Frequency of micturition] Onset: 4 Episodic Headache; including migraine (20 sources) Migraine without aura; Translations: [Migraine without aura, not intractable, without status migrainosus] Onset: 2 02-02-2022 Chronic Immunizations and screening for infectious disease (2 sources) Immunization due; Translations: [Encounter for immunization] Onset: 3 06-19-2023 Episodic Malaise and fatigue (2 sources) Fatigue; Translations: [Other fatigue] Onset: 4 Episodic Menopausal disorders (1 source) Atrophic vaginitis; [...] disorders] 06-19-2023 Episodic Other connective tissue disease (1 source) Other specified soft tissue disorders; Translations: [Leg [...] [Obesity, Class III, BMI 40-49.9 (morbid obesity) ([facility])] Onset: 3 Chronic Paralysis (20 sources) Left hemiparesis; Translations: [Spastic hemiplegia affecting left nondominant side] Onset: 4 03-16-2014 Chronic Phlebitis; thrombophlebitis and thromboembolism (1 source) Phlebitis and thrombophlebitis of other sites; Translations: [Superficial thrombophlebitis of right upper extremity] Onset: 4 Episodic Pneumonia (except that caused by tuberculosis or sexually transmitted disease) (1 source) Pneumonia, unspecified organism; Translations: [Community acquired pneumonia, unspecified laterality] Onset: 4 Episodic Prolapse of female genital organs (20 sources) Incomplete uterovaginal prolapse; Translations: [Incomplete uterovaginal prolapse] Onset: 7 11-01-2016 Chronic Residual codes; unclassified (1 source) Edema of lower extremity; Translations: [Localized edema] Episodic Residual codes; unclassified (2 sources) Bilateral lower limb edema; Translations: [Localized edema] Episodic Skin and subcutaneous tissue infections (1 source) Cellulitis, unspecified; Translations: [Cellulitis of skin] Onset: 4 Episodic Substance-related disorders (1 source) Finding related to substance use; Translations: [Opioid use, unspecified, uncomplicated] Episodic Unclassified (1 source) Suspected COVID-19 virus infection; Translations: [Suspected COVID-19 virus infection] Onset: 4 Urinary tract infections (4 sources) Acute cystitis; Translations: [Acute cystitis without hematuria] Episodic Past or Other Problems Problem Classification Problem [...] (peripheral); Translations: [Venous incompetence] Onset: 03-26-2018 Episodic Other screening for suspected conditions (not mental disorders or infectious disease) (8 sources) Other specified abnormal findings of blood chemistry; Translations: [Other abnormal blood chemistry] Onset: 05-16-2023 Episodic Residual codes; unclassified (20 sources) Insomnia; Translations: [Insomnia, unspecified] Onset: 02-02-2022 02-02-2022 Episodic Residual codes; unclassified (1 source) Localized edema; Translations: [Bilateral lower extremity edema] Onset: 11-06-2022 Episodic Spondylosis; intervertebral disc disorders; other back problems (20 sources) Chronic low back pain; Translations: [Chronic bilateral low back pain without sciatica] Onset: 04-13-2016 04-13-2016 Episodic Results Test Name Value Interpretation Reference Range Facil ity Vital Signs Date Time Vital Sign Value Performing Clinician Solomon roberto 06-19-2023 13:42-0500 Body weight 92.99 kg Kassandra Podlogar ASSOCIATE PROFESSOR OF [employer]IVER Work Phone: [facility] 06-19-2023 13:42-0500 Diastolic blood pressure 80 mm[Hg] Kassandra Podlogar ASSOCIATE PROFESSOR OF [employer] TR[employer] DRIVER Work Phone: [facility] 06-19-2023 13:42-0500 Heart rate 90 /min Kassandra Podlogar ASSOCIATE PROFESSOR OF [employer] TRUCK DRIVER Work Phone: [facility] 06-19-2023 13:42-0500 Respiratory rate 18 /min Kassandra Podlogar ASSOCIATE PROFESSOR OF [employer] TRUCK DRIVER Work Phone: [facility] 06-19-2023 13:42-0500 SaO2% (BldA) [Mass fraction] 91 % Kassandra Podlogar ASSOCIATE PROFESSOR OF [employer] FL[employer]ED TRUCK DRIVER Work Phone: [facility] 06-19-2023 13:42-0500 Systolic blood pressure 136 mm[Hg] Kassandra Podlogar ASSOCIATE PROFESSOR OF [employer] TRUCK DRIVER Work Phone: [facility] 05-29-2023 16:09-0500 Body height 152.4 cm Hayden Flanagan MD Work Phone: [facility] 05-29-2023 16:09-0500 Body weight 94.6 kg Hayden Flanagan MD Work Phone: [facility] 05-29-2023 16:09-0500 Diastolic blood pressure 75 mm[Hg] Hayden Flanagan MD Work Phone: [facility] 05-29-2023 16:09-0500 Heart rate 95 /min Hayden Flanagan MD Work Phone: [facility] 05-29-2023 16:09-0500 SaO2% (BldA) [Mass fraction] 96 % Hayden Flanagan MD Work Phone: [facility] 05-29-2023 16:09-0500 Systolic blood pressure 135 mm[Hg] Hayden Flanagan MD Work Phone: [facility] 01-31-2023 10:40-0400 SaO2% (BldA) [Mass fraction] 97 % Pacc 2 Work Phone: [facility] 01-31-2023 09:43-0400 Body height 152.4 cm Pacc 2 Work Phone: [facility] 01-31-2023 09:43-0400 Body temperature 97.59 [degF] Pacc 2 Work Phone: [facility] 01-31-2023 09:43-0400 Body weight 94.44 kg Pacc 2 Work Phone: [facility] 01-31-2023 09:43-0400 Diastolic blood pressure 69 mm[Hg] Pacc 2 Work Phone: [facility] 01-31-2023 09:43-0400 Heart rate 81 /min Pacc 2 Work Phone: [facility] 01-31-2023 09:43-0400 Respiratory rate 17 /min Pacc 2 Work Phone: [facility] 01-31-2023 09:43-0400 Systolic blood pressure 142 mm[Hg] Pacc 2 Work Phone: [facility] 11-26-2022 13:34-0400 Diastolic blood pressure 65 mm[Hg] Leydi Vance MD Work Phone: [facility] 11-26-2022 13:34-0400 Heart rate 81 /min Leydi Vance MD Work Phone: [facility] 11-26-2022 13:34-0400 Systolic blood pressure 125 mm[Hg] Leydi Vance MD Work Phone: [facility] 11-13-2022 14:02-0400 Diastolic blood pressure 72 mm[Hg] Shorty Teresa MD Work Phone: [facility] 11-13-2022 14:02-0400 Heart rate 88 /min Shorty Teresa MD Work Phone: [facility] 11-13-2022 14:02-0400 Respiratory rate 16 /min Shorty Teresa MD Work Phone: [facility] 11-13-2022 14:02-0400 SaO2% (BldA) [Mass fraction] 96 % Shorty Teresa MD Work Phone: [facility] 11-13-2022 14:02-0400 Systolic blood pressure 138 mm[Hg] Shorty Teresa MD Work Phone: [facility] 09-12-2022 16:15-0500 Body height 152.4 cm Hayden Flanagan MD Work Phone: [facility] 09-12-2022 16:15-0500 Body weight 92.44 kg Hayden Flanagan MD Work Phone: [facility] 09-12-2022 16:15-0500 Diastolic blood pressure 75 mm[Hg] Hayden Flanagan MD Work Phone: [facility] 09-12-2022 16:15-0500 Heart rate 87 /min Hayden Flanagan MD Work Phone: [facility] 09-12-2022 16:15-0500 SaO2% (BldA) [Mass fraction] 97 % Hayden Flanagan MD Work Phone: [facility] 09-12-2022 16:15-0500 Systolic blood pressure 135 mm[Hg] Hayden Flanagan MD Work Phone: [facility] 08-17-2022 15:34-0500 Body height 152.4 cm Wagner Roldan PA-C Work Phone: [facility] 08-17-2022 15:34-0500 Body temperature 97.59 [degF] Wagner Roldan PA-C Work Phone: [facility] 08-17-2022 15:34-0500 Body weight 89.36 kg Wagner Roldan PA-C Work Phone: [facility] 08-17-2022 15:34-0500 Diastolic blood pressure 68 mm[Hg] Wagner Roldan PA-C Work Phone: [facility] 08-17-2022 15:34-0500 Heart rate 104 /min Wagner Roldan PA-C Work Phone: [facility] 08-17-2022 15:34-0500 Respiratory rate 16 /min Wagner Roldan PA-C Work Phone: [facility] 08-17-2022 15:34-0500 SaO2% (BldA) [Mass fraction] 97 % Wagner Roldan PA-C Work Phone: [facility] 08-17-2022 15:34-0500 Systolic blood pressure 144 mm[Hg] Wagner Roldan PA-C Work Phone: [facility] 08-13-2022 16:03-0500 Diastolic blood pressure 78 mm[Hg] Shorty Teresa MD Work Phone: [facility] 08-13-2022 16:03-0500 Systolic blood pressure 138 mm[Hg] Shorty Teresa MD Work Phone: [facility] 08-13-2022 15:16-0500 Body weight 89.45 kg Shorty Teresa MD Work Phone: [facility] 08-13-2022 15:16-0500 Heart rate 91 /min Shorty Teresa MD Work Phone: [facility] 08-13-2022 15:16-0500 Respiratory rate 18 /min Shorty Teresa MD Work Phone: [facility] 08-13-2022 15:16-0500 SaO2% (BldA) [Mass fraction] 97 % Shorty Teresa MD Work Phone: [facility] 07-26-2022 18:35-0500 Body temperature 98.01 [degF] Donnell Braden MD Work Phone: [facility] 07-26-2022 18:35-0500 Body weight 84.37 kg Donnell Braden MD Work Phone: [facility] 07-26-2022 18:35-0500 Diastolic blood pressure 84 mm[Hg] Donnell Braden MD Work Phone: [facility] 07-26-2022 18:35-0500 Heart rate 62 /min Donnell Braden MD Work Phone: [facility] 07-26-2022 18:35-0500 Respiratory rate 18 /min Donnell Braden MD Work Phone: [facility] 07-26-2022 18:35-0500 SaO2% (BldA) [Mass fraction] 95 % Donnell Braden MD Work Phone: [facility] 07-26-2022 18:35-0500 Systolic blood pressure 138 mm[Hg] Donnell Braden MD Work Phone: [facility] 07-09-2022 18:01-0500 Body temperature 97.81 [degF] Elly Athy PA-C Work Phone: [facility] 07-09-2022 18:01-0500 Body weight 84.37 kg Elly Athy PA-C Work Phone: [facility] 07-09-2022 18:01-0500 Diastolic blood pressure 86 mm[Hg] Elly Athy PA-C Work Phone: [facility] 07-09-2022 18:01-0500 Heart rate 89 /min Elly Athy PA-C Work Phone: [facility] 07-09-2022 18:01-0500 Respiratory rate 20 /min Elly Athy PA-C Work Phone: [facility] 07-09-2022 18:01-0500 SaO2% (BldA) [Mass fraction] 95 % Elly Athy PA-C Work Phone: [facility] 07-09-2022 18:01-0500 Systolic blood pressure 158 mm[Hg] Elly Athy PA-C Work Phone: [facility] 12-05-2021 19:23-0400 Body weight 83.83 kg Shorty Teresa MD Work Phone: [facility] 12-05-2021 19:23-0400 Diastolic blood pressure 58 mm[Hg] Shorty Teresa MD Work Phone: [facility] 12-05-2021 19:23-0400 Heart rate 80 /min Shorty Teresa MD Work Phone: [facility] 12-05-2021 19:23-0400 Respiratory rate 18 /min Shorty Teresa MD Work Phone: [facility] 12-05-2021 19:23-0400 SaO2% (BldA) [Mass fraction] 96 % Shorty Teresa MD Work Phone: [facility] 12-05-2021 19:23-0400 Systolic blood pressure 110 mm[Hg] Shorty Teresa MD Work Phone: [facility] Encounters Encounter Date Encounter Type Care Provider Facility Start: 08-28-2023 End: 08-29-2023 ambulatory LEYDI VANCE Facility:[facility] Start: 08-14-2023 End: 08-15-2023 ambulatory SHORTY TERESA Facility:[facility] Start: 08-12-2023 End: 08-13-2023 ambulatory SHORTY TERESA Facility:[facility] Start: 07-23-2023 End: 07-24-2023 ambulatory SHORTY TERESA Facility:[facility] Start: 06-19-2023 End: 06-20-2023 ambulatory SHORTY TERESA Facility:[facility] Start: 06-19-2023 End: 06-19-2023 Patient encounter procedure Kassandra Reidlogthomas BURRELLCDL [employer]ED TRUCK DRIVER Work Phone: [facility] Procedures Date Procedure Procedure Detail Performing Clinician Start: 06-19-2023 [employer] COVI D-19 VACCINE ( SEASON) AGE 12+ YR Kassandra Sharma ASSOCIATE PROFESSOR OF MEDIA ARTS.[employer]L [employer]ED TRUCK DRIVER Work Phone: Start: 05-29-2023 INFLUENZA VACCINE, P RSV FREE, AGE 65+ YR, HIGH DOSE, QUADRIVALENT (FLUZONE HIGH-DOSE) Hayden Flanagan MD Work Phone: Start: 05-16-2023 Screening mammograph y bi 2-view breast inc cad Shorty Teresa MD Work Phone: Start: 01-31-2023 Parathyroid imaging w/tomographic spect & ct Leydi Vance MD Work Phone: Start: 01-03-2023 Arthrocentesis aspir &/inj major jt/bursa w/o us Arnol Jonas MD Work Phone: Start: 08-17-2022 Culture bacterial quanttative colony count urine Wagner Gomezoney PA-C Work Phone: Start: 08-17-2022 Urnls dip stick/tabl et rgnt auto w/o microscopy Wagner Gomezoney PA-C Work Phone: Start: 07-26-2022 Culture bacterial quanttative colony count urine Donnell Braden MD Work Phone: Start: 07-26-2022 Urnls dip stick/tabl et rgnt auto w/o microscopy Keesha Riggs ASSOCIATE PROFESSOR OF [employer] TR[employer] DRIVER Work Phone: Start: 07-09-2022 Urnls dip stick/tabl et rgnt auto w/o microscopy Ericka Lowry ASSOCIATE PROFESSOR OF MEDIA ARTS.CDL [employer]ED TRUCK DRIVER Work Phone: Start: 04-26-2022 Mammography Mammograph y [...] - S prince or Plasma Lipid Screening [facility] Start: 01-31-2027 LIPID SCREEN LIPID SCREEN [facility] Start: 10-09-2026 Urine microalbumin profile [facility] Start: 01-31-2026 DIABETES SCREEN DIABETES SCREEN [facility] Start: 01-31-2026 Diabetes Screening Diabetes Screenin g [facility] Start: 09-21-2025 DIABETES SCREEN DIABETES SCREEN [facility] Start: 09-05-2025 DIABETES SCREEN DIABETES SCREEN [facility] Start: 08-13-2025 DIABETES SCREEN DIABETES SCREEN [facility] Start: 04-12-2025 DIABETES SCREEN DIABETES SCREEN [facility] Start: 02-24-2025 Colonoscopy COLONOSCOPY [facility] Start: 02-24-2025 COLORECTAL CANCER SCREENING COLORECTAL CANCER SCREENING [facility] Start: 01-31-2025 DIABETES SCREEN DIABETES SCREEN [facility] Start: 09-11-2024 DIABETES SCREEN DIABETES SCREEN [facility] Start: 08-27-2024 LIPID SCREEN LIPID SCREEN [facility] Start: 02-13-2024 SHINGRIX VACCINE (1 of 2) VEGA GRIX VACCINE (1 of 2) [facility] Immunizations Immunization Date Immunization Notes Care Provider Feliciano sanches 06-19-2023 COVID-19 vaccine, ag e 12+ yr, season (PFIZER-BIONTECH) Kassandra Sharma APRN.CNP Work Phone: [facility] 05-29-2023 influenza (HD-IIV4) vaccine, age 65+ yr, high dose, quadrivalent, PF (FLUZONE HIGH-DOSE) Hayden Flanagan MD Work Phone: [facility] 02-12-2023 COVID-19 vaccine, ag e 12+ yr, bivalent (PFIZER-BIONTECH) Leydi Vance MD Work Phone: [facility] 05-10-2022 influenza (HD-IIV4) vaccine, age 65+ yr, high dose, quadrivalent, PF (FLUZONE HIGH-DOSE) Shorty Teresa MD Work Phone: [facility] 05-10-2022 influenza virus vaccine, unspecified formulation Shorty Teresa MD Work Phone: [facility] 04-19-2021 influenza, high-dose , quadrivalent vaccine (FLUZONE HIGH DOSE QUADRIVALENT) Shorty Teresa MD Work Phone: [facility] 05-12-2020 influenza, high-dose , quadrivalent vaccine (FLUZONE HIGH DOSE QUADRIVALENT) Shorty Teresa MD Work Phone: [facility] 07-02-2019 influenza, high dose seasonal, preservative-free Shorty Teresa MD Work Phone: [facility] 04-23-2018 influenza, seasonal, injectable, preservative free Shorty Teresa MD Work Phone: [facility] Work Phone: 03-26-2018 influenza, high dose seasonal, preservative-free Shorty Teresa MD Work Phone: [facility] 03-30-2017 influenza, high dose seasonal, preservative-free Shorty Teresa MD Work Phone: [facility] 10-09-2016 tetanus toxoid, redu donna diphtheria toxoid, and acellular pertussis vaccine, adsorbed Shorty Teresa MD Work Phone: [facility] 05-08-2016 pneumococcal polysaccharide vaccine, 23 valent Shorty Teresa MD Work Phone: [facility] 04-13-2016 influenza, high dose seasonal, preservative-free Shorty Teresa MD Work Phone: [facility] 04-22-2015 influenza, high dose seasonal, preservative-free Shorty Teresa MD Work Phone: [facility] 09-07-2014 pneumococcal conjuga te vaccine, 13 valent Shorty Teresa MD Work Phone: [facility] 04-22-2010 pneumococcal polysaccharide vaccine, 23 valent Shorty Teresa MD Work Phone: [facility] 08-05-2006 TD(adult) unspecifie d formulation Shorty Teresa MD Work Phone: [facility] 08-05-2006 tetanus and diphther ia toxoids, adsorbed, preservative free, for adult use (2 Lf of tetanus toxoid and 2 Lf of diphtheria toxoid) Shorty Teresa MD Work Phone: [facility] 07-18-1998 diphtheria and tetan us toxoids, adsorbed for pediatric use Shorty Teresa MD Work Phone: [facility] Work Phone: Payers Date Payer Category Payer Medicaid [facility] MEDICAID [employer] ARE [facility] MEDICAID [id number] 2019-Present [phone] [address] [place] [address] Medicaid [id number] 2019 Medicaid [facility] MEDICAID [employer]C ARE [facility] MEDICAID [id number] 2019-Present [phone] [address] [place] [address] Medicaid [id number] 2019 Medicaid [id number] 2017 Medicare [facility] MEDICARE [facility] DUAL COMPLETE HMO SNP [id number] 2017-Present [phone] [address] [place] [address] Medicare [id number] 2017 Medicare [id number] 2017 Unknown [id number] Social History Date Type Detail Facility Start: 02-07-2012 Tobacco smoking stat us IDIS Never smoked tobacco [facility] Start: 12-05-2021 End: 06-19-2023 Alcohol intake Current non-drinker of alcohol (finding) [facility] Start: 1950 Sex Assigned At Not on file [facility] Start: 11-24-2021 End: 04-26-2022 Exposure to SARS-CoV-2 (event) Not sure [facility] Work Phone: Start: 02-07-2012 Tobacco use and exposure Smokeless tobacco non-user [facility] Start: 11-26-2022 End: 01-31-2023 History of Social function [facility] Work Phone: Start: 11-26-2022 End: 01-31-2023 Tobacco use panel [facility] Work Phone: Adult Depression Screening Assessment 0 [facility] Work Phone: Medical Equipment Procedure Code Equipment Code Equipment Origin al Text Equipment Identifier Dates Reymundo Bn Smpx P Ra dpq Fd Strl - [id number] Start: 03-17-2014 Emmanuel emery W/Disect - [id number] Start: 04-21-2010 Clinical Notes 10-11-2017 to 08-14-2023 PodlogarKassandra APRN.CDL FLATBED TRUCK DRIVER - 06/19/2023 1:48 PM ESTPatient Hayden Jenkins MD - 05/29/2023 4:11 PM ESTLetter - Coordinator, Mammography - 05/17/2023 11:15 AM EDT Note Date & Type Note Facility 08-14-2023 Note HNO ID: [id number] Author: SHORTY TERESA MD Service: ? Author Type: Physician Type: Progress Notes Filed: 08/14/2023 14:45 Note Text: Chief Complaint Patient presents with: Dysuria: Since early this AM HPI Janay Frederick is a 73 year old female who presents here today for Above Complaints.. Patient states that she woke up in the middle of the night to urinate and had dysuria which has persisted. Has been pushing PO fluids to help with the pain. Denies urinary frequency, hematuria, urgency, fever/chills, nausea, vomiting, flank pain, abdominal pain. Past medical history, appointments, medications, allergies reviewed. [...] DEVICE 04/21/2010 Performed by THI ALCOCER at [facility] LAPS RPR PARAESPHGL HRNA INCL FUNDPLSTY W/O MESH 04/21/2010 Performed by THI ALCOCER at [facility] MAL LESION FACE,EAR,EYEL 1.1-2CM 01/28/06 Left cheek and right forearm lesions PAST SURGICAL HISTORY OF July 06, 2009 Hysteroscopy [facility] PAST SURGICAL HISTORY OF 10/2017 vaginal vault suspension PAST SURGICAL HISTORY OF 10/2017 Lap band removed UNLIS LAPAROSCOPIC PROCEDURE LIVER 04/21/2010 Performed by THI ALCOCER at [facility] Family History FAMILY HISTORY Problem Relation [...] on File Prior to Visit Medication Sig potassium chloride 20 mEq/15 mL solution Take 30 mL by mouth once daily. famotidine (PEPCID) 20 mg tablet Take 1 tablet by mouth at bedtime as needed. furosemide (LASIX) 40 mg tablet Take 1 [...] every 6 hours as needed for pain. dwwusfe-pztymtyfl-lklyxha D3 500 mg-5 mcg (200 unit) per tablet Take 1 tablet by mouth three times daily. dilTIAZem CD (CARTIA XT) 300 mg 24 hr capsule Take 1 capsule by mouth once daily. zoledronic acid (RECLAST) 5 mg/100 mL pgbk PREMIX piggyback Inject 100 mL intravenously one time only for 1 dose. HYDROcodone-acetaminophen (NORCO) 5-325 mg per tablet Take 3 tablets by mouth as needed. docusate sodium (COLACE) 100 mg capsule Take 1 capsule by mouth twice daily. cholecalciferol (VITAMIN D3) 50 mcg (2,000 un (more content not included)... [facility] 08-12-2023 Note HNO ID: [id number] Author: SHORTY TERESA MD Service: ? Author Type: Physician Type: Progress Notes Filed: 08/12/2023 16:59 Note Text: Chief Complaint Patient presents with: Hospital F/U: Discharged from 08/05/23 [facility] Janay Frederick is a 73 year old female who presents here today for Hospital Discharge Follow up.. Patient admitted to [facility] from 07/28 to 08/01 after presenting to the ED with generalized weakness and inability to ambulate about her home. While inpatient she received IV fluids and was initially treated for possible c diff due to diarrhea prior to admission with recent abx for pneumonia.Given IV vancomycin, but this was discontinued after not having BM for 2 days and her CXR and CT scans were negative for pneumonia. Had contracture in LUE and was started on doxycycline and keflex for possible cellulitis.Treated for hypokalemia with 40 meq potassium daily. Mag and phos were normal. Recommended BMP in 1 week. Evaluated for DVT of LLE which was negative. Did develop superficial thrombophlebitis of right upper extremity from IV line. Treated with warm compresses. Discharged to [facility] resided until 08/05 and was discharged home with home health. Today, she states that physical therapy was out 3-4 days ago and they were going to follow up with her on a weekly basis. States that she was not given home exercises yet. Using cane to ambulate outside of the home. Feels steady on her feet without any falls. Able to complete all ADLs without issues. Patient finished abx while in SNF. Does need her potassium level rechecked and refill on the 40 meq daily supplement. Patient still complaining of wet sounding cough without fever/chills, chest pain, SOB, wheezing. Admits to chest congestion. Not treating with anything OTC. Patient states that the pain and swelling in her right arm have resolved from the superficial thrombophlebitis. No longer using warm compresses. Past medical history, appointments, medications, allergies reviewed. Previous Medical History PAST MEDICAL HISTORY Diagnosis Date BCC (basal cell carcinoma of skin) Chronic lower back pain Dr. Nur Gastric band slippage Dr. Garcia, removed 11/06 Gastric ulcer, unspecified as acute or chronic, without mention of hemorrhage or perforation, with obstruction Generalized osteoarthrosis, unspecified site back GERD (gastroesophageal reflux disease) Hyperparathyroidism ([facility]) s/p parathyroidectomy 02/08/2023 Insomnia Knee pain, chronic [...] DEVICE 04/21/2010 Performed by THI ALCOCER at [facility] LAPS RPR PARAESPHGL HRNA INCL FUNDPLSTY W/O MESH 04/21/2010 Performed by THI ALCOCER at [facility] MAL LESION FACE,EAR,EYEL 1.1-2CM 01/28/06 Left cheek and right forearm lesions PAST SURGICAL HISTORY OF July 06, 2009 Hysteroscopy DANMD PAST SURGICAL HISTORY OF 10/2017 vaginal vault suspension PAST SURGICAL HISTORY OF 10/2017 Lap band removed UNLIS LAPAROSCOPIC PROCEDURE LIVER 04/21/2010 Performed by THI ALCOCER at [facility] Family History FAMILY HISTORY Problem Relation [...] on File Prior to Visit Medication Sig famotidine (PEPCID) 20 mg tablet Take 1 table (more content not included)... [facility] 07-23-2023 Note HNO ID: [id number] Author: Pastora Bell RT(R) Service: Radiology Author [...] RT Debbi(R) July 23, 2023 7:16 PM [facility] 07-23-2023 Note HNO ID: [id number] Author: Shorty Teresa MD Service: ? Author [...] DEVICE 04/21/2010 Performed by THI ALCOCER at [facility] LAPS RPR PARAESPHGL HRNA INCL FUNDPLSTY W/O MESH 04/21/2010 Performed by THI ALCOCER at [facility] MAL LESION FACE,EAR,EYEL 1.1-2CM 01/28/06 Left cheek and right forearm lesions PAST SURGICAL HISTORY OF July 06, 2009 Hysteroscopy DANMD PAST SURGICAL HISTORY OF 10/2017 vaginal vault suspension PAST SURGICAL HISTORY OF 10/2017 Lap band removed UNLIS LAPAROSCOPIC PROCEDURE LIVER 04/21/2010 Performed by THI ALCOCER at [facility] Family History FAMILY HISTORY Problem Relation [...] once daily. HYDROcodone-a (more content not included)... [facility] 06-19-2023 Note HNO ID: [id number] Author: Kassandra Sharma APRN.CDL FLATBED TRUCK DRIVER Service: ? Author Type: Nurse Practitioner Type: [...] GERD (gastroesophageal reflux disease) Hyperparathyroidism ([facility]) s/p parathyroidectomy 02/08/2023 Insomnia Knee pain, chronic Lumbago Migraine without aura on diltiazem Obesity, unspecified stated BMI 40.5 HT: 61.5 WT: 220 Osteopenia of multiple sites Overactive bladder Personal history of unspecified urinary disorder years ago since last bladder infection SCC (squamous cell carcinoma) Stroke ([facility]) 12/06/1981 cva left side residual, young at [...] every 6 hours as needed for pain. rspjltn-mzhvzcmru-ehfrelt D3 500 mg-5 mcg (200 unit) per [...] AND Units 01/31/2023 (more content not included)... [facility] 06-19-2023 History of Present illness [...] GERD (gastroesophageal reflux disease) Hyperparathyroidism ([facility]) s/p parathyroidectomy 02/08/2023 Insomnia Knee pain, chronic Lumbago Migraine without aura on diltiazem Obesity, unspecified stated BMI 40.5 HT: 61.5 WT: 220 Osteopenia of multiple sites Overactive bladder Personal history of unspecified urinary disorder years ago since last bladder infection SCC (squamous cell carcinoma) Stroke ([facility]) 12/06/1981 cva left side residual, young at [...] every 6 hours as needed for pain. hyeyndt-mmtqogkxl-rogoxyh D3 500 mg-5 mcg (200 unit) per [...] Abs Lymph 1.00 - 4.00 k/uL 1.99 [place]% % 8.0 Abs [place] <0.87 k/uL 0.57 Eosin% % 4.2 Abs [...] due - ICD9: V05.9, ICD10: Z23 - [employer] COVID-19 VACCINE (2022- [place]) AGE 12+ YR [...] calories and exercise as well. Kassandra Sharma APRN.LENA Prescription instructions reviewed with patient as applicable. [...] which included preparing to see the patient, pqea-uk-iszx patient care, completing clinical documentation, obtaining and/or reviewing separately obtained history, performing a medically appropriate examination, counseling and educating the patient/family/caregiver, and ordering medications, tests, or procedures. documented in this encounter [facility] 05-29-2023 Note HNO ID: [id number] Author: Hayden Flanagan MD Service: ? Author [...] DEVICE 04/21/2010 Performed by THI ALCOCER at [facility] LAPS RPR PARAESPHGL HRNA INCL FUNDPLSTY W/O MESH 04/21/2010 Performed by THI ALCOCER at [facility] MAL LESION FACE,EAR,EYEL 1.1-2CM 01/28/06 Left cheek and right forearm lesions PAST SURGICAL HISTORY OF July 06, 2009 Hysteroscopy DANMD PAST SURGICAL HISTORY OF 10/2017 vaginal vault suspension PAST SURGICAL HIST (more content not included)... [facility] 05-29-2023 Instructions Hayden Flanagan MD - 05/29/2023 4:26 PM EST - Continue the current calcium and vitamin D intake - Blood tests in July as planned - Repeat bone density scan on or after 09/12/2023 - I will see you in October 2023 and will decide on the Reclast infusion documented in this encounter [facility] 05-29-2023 History of Present illness Narrative [...] DEVICE 04/21/2010 Performed by THI ALCOCER at [facility] LAPS RPR PARAESPHGL HRNA INCL FUNDPLSTY W/O MESH 04/21/2010 Performed by THI ALCOCER at [facility] MAL LESION FACE,EAR,EYEL 1.1-2CM 01/28/06 Left cheek and right forearm lesions PAST SURGICAL HISTORY OF July 06, 2009 Hysteroscopy D&C PAST SURGICAL HISTORY OF 10/2017 vaginal vault suspension PAST SURGICAL HISTORY OF 10/2017 Lap band removed UNLIS LAPAROSCOPIC PROCEDURE LIVER 04/21/2010 Performed by THI ALCOCER at [facility] Medications Current Outpatient Medications Medication Sig [...] needed (mouth or hand numbness or tingling). phsupfm-eifthxpbb-ksqatco D3 500 mg-5 mcg (200 unit) per [...] Hayden Flanagan MD documented in this encounter [facility] 05-28-2023 Note HNO ID: [id number] Author: Arnol Jonas MD Service: ? Author Type: Physician Type: Progress Notes Filed: 05/28/2023 4:33 PM Note Text: Janay is here for Durolane injection in the right knee. History and physical exam unchanged. Large Joint Arthro/Inj: R knee joint Informed Consent Consent Obtained: Verbal Evans Protocol A moment to CARE was completed. [...] which included preparing to see the patient, xagd-mr-zqnp patient care, completing clinical documentation, obtaining and/or reviewing separately obtained history, performing a medically appropriate examination, counseling and educating the patient/family/caregiver. Arnol Jonas MD Orthopaedic Surgery [facility] 05-17-2023 Miscellaneous Notes May 17, 2023 PID: [id number] Janay Christiansen [address] [place] [address] Dear Ms. Frederick, We are pleased to [...] report will be kept on file at [facility] as part of your permanent medical record and are available for your continuing care. Thank you for allowing us to help in meeting your health care needs. Sincerely, Dr. Richardson Interpreting Radiologist [facility] (Normal over 40) documented in this encounter [facility] 05-16-2023 Note HNO ID: [id number] Author: Kathleen Hoffmann Mammo Tech Service: ? Author Type: Parts Puller Type: Progress Notes Filed: 05/16/2023 3:03 PM [...] Shruthi Neville May 16, 2023 2:39 PM [facility] 05-16-2023 History of Present illness [...] Shruthi Neville May 16, 2023 2:39 PM documented in this encounter [facility] 04-12-2023 Miscellaneous Notes Patient notified. Marlene Loaiza LPN Order approved. Patient calls and states that she is due to have annual mammogram in April. Patient asking if provider can place order so that mammogram can be scheduled? Please review and advise, Tarsha Hernández RN documented in this encounter [facility] 03-20-2023 Miscellaneous Notes PDMP website checked [...] Payton Marie [employer] documented in this encounter [facility] 02-20-2023 Miscellaneous Notes Images from the [...] Leydi Vance MD documented in this encounter [facility] 02-12-2023 Note HNO ID: [id number] Author: Shorty Teresa MD Service: ? Author [...] back pain with last OV yesterday. Taking [place] as prescribed which is working well for [...] DEVICE 04/21/2010 Performed by THI ALCOCER at [facility] LAPS RPR PARAESPHGL HRNA INCL FUNDPLSTY W/O MESH 04/21/2010 Performed by THI ALCOCER at [facility] MAL LESION FACE,EAR,EYEL 1.1-2CM 01/28/06 Left cheek and right forearm lesions PAST SURGICAL HISTORY OF July 06, 2009 Hysteroscopy [facility] PAST SURGICAL HISTORY OF 10/2017 vaginal vault suspension PAST SURGICAL HISTORY OF 10/2017 Lap band removed UNLIS LAPAROSCOPIC PROCEDURE LIVER 04/21/2010 Performed by THI ALCOCER at [facility] Family History FAMILY HISTORY Problem Relation [...] needed (mouth or hand numbness or tingling). lugpmtd-vowxzpskd-myppsyr D3 500 mg-5 mcg (200 unit) per [...] omeprazole (PRILOSEC) 40 (more content not included)... [facility] documented as of this encounter (statuses as of 06/20/2023) [facility]07-22-2023 NoteHNO ID: [id number] Author: Yanelis Diaz MD Service: General Surgery [...] Laura Delgado MD 600 mg at 02/08/23 185 jwszanb-tvtuluuiz-fqsuswi D3 500 mg-5 mcg (200 unit) 1 tablet 1 tablet ORAL TID Laura Delgado MD 1 tablet at 02/09/23752 calcium carbonate 500 mg chewable tab(s) (TUMS) 500 mg ORAL q 1 H PRN Laura Delgado MD 500 mg at 02/08/231956 benzocaine-menthol 1 Lozenge (CHLORASEPTIC) 1 Lozenge MUCOUS MEMBRANE (TOPICAL MOUTH AND THROAT) q 2 H PRN Laura Delgado MD 1 Lozenge at 02/08/23 1544 phenol 1 [place] (CHLORASEPTIC) 1 [place] MUCOUS MEMBRANE (TOPICAL MOUTH AND THROAT) q [...] ORAL q 8 H PRN Macy Jameson APRN.CDL FLATBED TRUCK DRIVER 1 tablet at 02/09/23 0751 acetaminophen 500 mg tab(s) (TYLENOL) 500 mg ORAL q 4 H PRN Macy Jameson APRN.CDL FLATBED TRUCK DRIVER Date 02/08/23 07 - 02/09/23 0659 02/09/23 0700 - 02/10/23 0659 Shift 2784-2708 3388-7521 7410-4161 24 Hour Total 1085-0522 4475-5051 4053-3147 24 Hour Total INTAKE IV 900 900 [...] Resident Date: February 09, 2023 Time: 8:08 [facility]07-21-2023 NoteHNO ID: [id number] Author: Laura Delgado MD Service: Endocrine Surgery [...] in am. February 08, 2023 2:24 PM Luara Delgado MD General Surgery PGY-4 Endocrine Surgery pager: [phone] S: No acute events since OR. No [...] 1 Lozenge at 02/08/23 1418 phenol 1 [place] (CHLORASEPTIC) 1 [place] MUCOUS MEMBRANE (TOPICAL MOUTH AND THROAT) q 2 H PRN Laura Delgado MD Date 02/07/23 07 - 02/08/23 0659(Not Admitted) 02/08/23 07 - 02/09/23 0659 Shift 2101-4748 6726-4962 2439-8705 24 Hour Total 1852-7636 1947-6957 2965-3410 24 Hour Total INTAKE IV 900 900 [...] developed and its performance characteristics determined by [facility] Pathology and Laboratory Medicine [facility] ([facility]). It has not been cleared or approved by the FDA. [facility] is regulated under CLIA as qualified to [...] agrees to proceed with today?s plan of care.[facility]07-21-2023 NoteHNO ID: [id number] Author: Ita Tamez AA Service: ? Author Type: Cafe Assistant Type: Anesthesia Procedure Notes Filed: 02/08/2023 12:00 PM Note Text: ANESTHESIOLOGY PROCEDURE NOTE Airway General Information Procedure Start Time/Medication Administration: 02/08/2023 11:47 AM Patient location during procedure: OR Timeout Performed Pre-procedure: timeout performed Consent Obtained: Yes Patient identity confirmed: arm band, care steamer blocker and patient Staffing CAA: Ita Tamez AA [...] February 08, 2023 TIME: 11:59 AM CSN: [id number] NoteHNO ID: [id number] Author: Neva Chandler RN Service: Interventional Radiology [...] Frederick DATE: January 31, 2023 TIME: 12:51 [facility]07-13-2023 History of Present illness Narrative * Neva [...] 2023 TIME: 12:51 PM [facility]23 NoteHNO ID: [id number] Author: Bib Parra Service: Nuclear Medicine Author Type: Parts Puller Type: Progress Notes Filed: 01/31/2023 1:59 PM [...] 10:00 PATIENT DISCHARGED TO: Ambulatory patient, left [place] department area. A Diagnostic radioactive procedure has taken place, with no further precautions necessary other than routine body substance precautions. More information regarding radiation safety can be found using this link: [email or web address]%20Medicine%[email or web address] SIGNATURE: Bib Parra [place] PATIENT NAME: Janay Frederick DATE: January 31, 2023 TIME: 1:58 PM PAGER/CONTACT #:[facility]07-13-2023 Instructions* Patient Instructions* Zelda Eric APRN.CDL FLATBED TRUCK DRIVER - 01/31/2023 10:57 AM EDT PATIENT PREOPERATIVE INSTRUCTIONS [facility]: [phone] -- [address] [place] [address]. Please read below carefully for your personalized [...] sip of water: atorvastatin (lipitor), diltiazem, gabapentin, [place], omeprazole (prilosec), potassium chloride, and detrol. If [...] Procedures: - YOU MUST HAVE A RESPONSIBLE DIE MAKER APPRENTICE TAKE YOU HOME. A MASTER NAVAL PARACHUTIST OR MAT LINKER CANNOT BE MADE A RESPONSIBLE DIE MAKER APPRENTICE. - We recommend that a responsible person [...] Advance Directive, please fax a copy to [phone] or email to for it to be [...] day. Zelda Eric APRN.CNP [facility] History and physical note * Zelda [...] >1 time per night and renal failure. 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: Negative for abnormal vaginal bleeding, abnormal [...] DEVICE 04/21/2010 Performed by THI ALCOCER at [facility] LAPS RPR PARAESPHGL HRNA INCL FUNDPLSTY W/O MESH 04/21/2010 Performed by THI ALCOCER at [facility] MAL LESION FACE,EAR,EYEL 1.1-2CM 01/28/06 Left cheek and right forearm lesions PAST SURGICAL HISTORY OF July 06, 2009 Hysteroscopy D&C PAST SURGICAL HISTORY OF 10/2017 vaginal vault suspension PAST SURGICAL HISTORY OF 10/2017 Lap band removed UNLIS LAPAROSCOPIC PROCEDURE LIVER 04/21/2010 Performed by THI ALCOCER at [facility] FAMILY HISTORY Problem Relation Age of [...] naloxone 4 mg/actuation nasal spray (NARCAN) 1 [place] by nasal (alternating) route as needed for [...] 374 QTC Calculation (Bazett) 436 Calculated P Reseda 38 Calculated R Reseda 18 Calculated T Reseda 49 Impression NORMAL SINUS RHYTHM POSSIBLE LEFT ATRIAL ENLARGEMENT BORDERLINE ECG No results found for this or any previous visit (from the past 53079 hour(s)). Assessment Patient has the following medical [...] large neck Non-male patient STOP-Bang Score: 2 [id number] Score: Age: 65-74 Sex: Female CHF history: No Hypertension history: No Stroke/TIA/thromboembolism history: Yes Vascular disease history: Yes Diabetes history: No [id number] Score: 5 ASA Class: 3 ANESTHESIA FINDINGS: [...] 9:42 AM PAGER/CONTACT #: [facility] History of Present illness Narrative* Ana Paula Womackrula [facility] Nelida - 01/31/2023 9:30 AM EDT RADIOLOGY SERVICE [...] 10:00 PATIENT DISCHARGED TO: Ambulatory patient, left [place] department area. A Diagnostic radioactive procedure has taken place, with no further precautions necessary other than routine body substance precautions. More information regarding radiation safety can be found usingthis link: [email or web address] 20Diagnostic%20Nuclear%20Medicine%[email or web address] SIGNATURE: Bib Parra PATIENT NAME: Janay Frederick DATE: January 31, 2023 TIME: 1:58 PM PAGER/CONTACT #: documented in [facility] encounterF[facility]06-[facility]-2023 NoteHNO ID: [id number] Author: Arnol Jonas MD Service: ? Author Type: Physician Type: Progress Notes Filed: 01/03/2023 3:20 PM Note Text: Orthopaedic Office Note: January 03, 2023 3:18 PM Janay rFederick 72 year old History: Janay is a [...] which included preparing to see the patient, wwtb-co-rspo patient care, completing clinical documentation, obtaining and/or reviewing separately obtained history, performing a medically appropriate examination, counseling and educating the patient/family/caregiver, and care coordination (not separately reported). Large Joint Arthro/Inj: R knee joint Informed Consent Consent Obtained: Verbal Evans Protocol A moment to CARE was completed. [...] bodies accounted for. Arnol Jonas MD [facility] NoteHNO ID: [id number] Author: LOLIS Long Service: Radiology Author Type: [...] Long January 03, 2023 2:48 PM[id number] History of Present illness Narrative* Arnol Jonas [...] which included preparing to see the patient, agwe-nm-dcjt patient care, completing clinical documentation, obtaining and/or reviewing separately obtained history, performing a medically appropriate examination, counseling and educating the patient/family/caregiver, and care coordination (not separately reported). Large Joint Arthro/Inj: R knee joint Informed Consent Consent Obtained: Verbal Evans Protocol A moment to CARE was completed. [...] Jonas MD Orthopaedic Surgery documented [facility]05-[facility]23 Miscellaneous Notes* Telephone Encounter - Kassandra Sharma APRN.LENA - 12/19/2022 7:25 PM EDT PDMP website checked and validated. All prescriptions have been APPROPRIATELY filled. No suspiciousactivity was identified. 12/19/2022 by Kassandra Sharma APRN.LENA * Telephone Encounter - Asia Naranjo Pss - 12/19/2022 3:33 PM EDT Tamara is syncing her meds through [employer] [email or web address] and needs to scripts on these 3 meds. * Telephone Encounter - Asia Naranjo Pss - 12/19/2022 3:32 PM EDT Pharmacy verified [...] advise. Asia Naranjo Pss [facility]-2023 NoteHNO ID: [id number] Author: Leydi Vance MD Service: ? Author Type: Physician Type: Progress Notes Filed: 11/28/2022 9:14 PM Note Text: [facility] Endocrine Metabolism [facility] Leydi Vance M.D. [address] [place], [place] [address] Name: aJnay Frederick Clinic Number: [id number] Date of Service: November 26, 2022 Janay [...] have any questions or concerns. Leydi Vance [facility]05-08-2023 History of Present illness Narrative* Leydi Vance MD - 11/26/2022 1:38 PM EDT [facility] Endocrine [facility] Leydi Vance M.D. [address] [place], [place] [address] Name: Janay Frederick Clinic Number: [id number] Date of Service: November 26, 2022 Janay [...] concerns. Leydi Vance MD documented in this encounterFlower Hospital05-08-2023 Instructions* Patient Instructions* Amparo Jeffries Ma - 11/26/2022 1:30 PM EDT Thank you for choosing the [facility] Department of Endocrinology, Diabetes and Metabolism. Did you know that you need to call 48 hours in advance of your scheduled visit, if you are unable to make your appointment? The Endocrinology [facility] Metabolism [facility] thanks you for your commitment, because patients not showing to their appointment results in a lost opportunity for patients to receive [facility] health care at the [facility]. To Cancel an appointment, please choose one of the following: - Call the Appointment Call Center at [phone] - From [employer], Go to Appointments - Cancel Appts If cancelling, consider your need to reschedule to prevent further delays in your care. To Schedule an appointment, please choose one of the following: - Call the Appointment Call Center at [phone] - From [employer], Go to Appointments - Request an Appt documented in this encounterFlower Hospital05-04-2023 Miscellaneous Notes* Telephone Encounter - Ita Ferrera - 11/22/2022 11:53 AM EDT Contacted patient and rescheduled appointment. * Telephone Encounter - Crystal Owen - 11/22/2022 11:14 AM EDT Patient left a message stating that she needs to change her appointment she has scheduled with Drea tomorrow, 11-23-2022. Please give her a call and assist with rescheduling. Thank you. Crystal Owen documented in this encounterF[facility] Hospital05-02-2023 Miscellaneous Notes* Telephone Encounter - Liv Hayes RN - 11/20/2022 3:02 PM EDT Macy with the [facility] calls to request last OV noted be faxed to go with wound care referral received. Faxed to [phone] per request. Liv Hayes RN documented in this encounterFlower Hospital04-27-2023 Miscellaneous Notes* Telephone Encounter - Sole [...] that she had made an appointment with [facility] and she could not get into see them until 11/29/2022. Patient asking if this is ok? Please review and advise, Tarsha Hernández RN documented in this encounterFlower Hospital04-25-2023 NoteHNO ID: [id number] Author: Shorty Teresa MD Service: ? Author [...] DEVICE 04/21/2010 Performed by THI ALCOCER at [facility] LAPS RPR PARAESPHGL HRNA INCL FUNDPLSTY W/O MESH 04/21/2010 Performed by THI ALCOCER at [facility] MAL LESION FACE,EAR,EYEL 1.1-2CM 01/28/06 Left cheek and right forearm lesions PAST SURGICAL HISTORY OF July 06, 2009 Hysteroscopy DANMD PAST SURGICAL HISTORY OF 10/2017 vaginal vault suspension PAST SURGICAL HISTORY OF 10/2017 Lap band removed UNLIS LAPAROSCOPIC PROCEDURE LIVER 04/21/2010 Performed by THI ALCOCER at [facility] Family History FAMILY HISTORY Problem Relation [...] naloxone 4 mg/actuation nasal spray (NARCAN) 1 [place] by nasal (alternating) route as needed for known or suspected opioid overdose. Use 1 spray in one nostril as needed for overdose. May repeat every 2 to 3 min in alternating (more content not included)...[facility] 11-13-2022 History of Present illness [...] DEVICE 04/21/2010 Performed by THI ALCOCER at [facility] LAPS RPR PARAESPHGL HRNA INCL FUNDPLSTY W/O MESH 04/21/2010 Performed by THI ALCOCER at [facility] MAL LESION FACE,EAR,EYEL 1.1-2CM 01/28/06 Left cheek and right forearm lesions PAST SURGICAL HISTORY OF July 06, 2009 Hysteroscopy D&C PAST SURGICAL HISTORY OF 10/2017 vaginal vault suspension PAST SURGICAL HISTORY OF 10/2017 Lap band removed UNLIS LAPAROSCOPIC PROCEDURE LIVER 04/21/2010 Performed by THI ALCOCER at [facility] Family History FAMILY HISTORY Problem Relation [...] naloxone 4 mg/actuation nasal spray (NARCAN) 1 [place] by nasal (alternating) route as needed for [...] recommend close f/u with wound care at [facility]. Red flags for re-assessment reviewed with patient in detail. 2. Bilateral lower extremity edema - ICD9: 782.3, ICD10: R60.0 Continue with compression stockings, leg elevation with rest, and lasix as prescribed. Shorty Teresa MD documented in this encounterFlower Hospital04-18-2023 NoteHNO ID: [id number] Author: Shorty Teresa MD Service: ? Author [...] DEVICE 04/21/2010 Performed by [facility] ALCOCER at [facility] LAPS RPR PARAESPHGL HRNA INCL FUNDPLSTY W/O MESH 04/21/2010 Performed by THI ALCOCER at [facility] MAL LESION FACE,EAR,EYEL 1.1-2CM 01/28/06 Left cheek and right forearm lesions PAST SURGICAL HISTORY OF July 06, 2009 Hysteroscopy DANMD PAST SURGICAL HISTORY OF 10/2017 vaginal vault suspension PAST SURGICAL HISTORY OF 10/2017 Lap band removed UNLIS LAPAROSCOPIC PROCEDURE LIVER 04/21/2010 Performed by THI ALCOCER at [facility] Family History FAMILY HISTORY Problem Relation [...] by mouth once daily. (more content not included)...[facility]03-03-2023 Miscellaneous Notes* Telephone Encounter - [...] patient. Mickie Babcock Pss documented in this encounterFlower Hospital03-03-2023 Miscellaneous Notes* Telephone Encounter - Shorty Teresa MD - 09/21/2022 9:57 AM EST Needing order for BMP stat prior to reclast. Order placed as requested. documented in this encounterFlower Hospital02-23-2023 Miscellaneous Notes* Telephone Encounter - Tarsha Leigh - 09/13/2022 1:31 PM EST Spoke with patient and scheduled. Tarsha Leigh * Addendum Note - France Hadley RPh - 09/13/2022 1:01 PM ESTAddended by: FRANCE HADLEY on: 09/13/2022 01:01 PM Modules accepted: Orders * Telephone Encounter - Tarsha Leigh - 09/13/2022 12:47 PM EST Please convert to [employer] for scheduling/prior auth purposes and reroute to [...] working. Sole Toro LPN documented in this encounterFlower Hospital02-23-2023 Miscellaneous Notes* Telephone Encounter - Judy Roldan Ma - 09/13/2022 1:20 PM EST Called and spoke with PT, expressed understanding Gave patient phone number to call and make appt with 's office at [phone]. CLOSED * Telephone Encounter - Hayden Flanagan [...] can please refer her to someone at [facility]. documented in this encounterFlower Hospital02-22-2023 NoteHNO ID: [id number] Author: Hayden Flanagan MD Service: ? Author [...] DEVICE 04/21/2010 Performed by THI ALCOCER at [facility] LAPS RPR PARAESPHGL HRNA INCL FUNDPLSTY W/O MESH 04/21/2010 Performed by THI ALCOCER at [facility] MAL LESION FACE,EAR,EYEL 1.1-2CM 01/28/06 Left cheek and right forearm lesions PAST SURGICAL HISTORY OF July 06, 2009 Hysteroscopy DANMD PAST SURGICAL HISTORY OF 10/2017 vaginal vault suspension PAST SURGICAL HISTORY OF 10/2017 Lap band removed UNLIS LAPAROSCOPIC PROCEDURE LIVER 04/21/2010 Performed by THI ALCOCER at [facility] Medications Current Outpatient M (more content not included)...[facility] 09-12-2022 Instructions* Patient Instructions* Hayden Flanagan MD - 09/12/2022 4:33 PM EST - Please call [phone] and ask for the outpatient infusion to schedule your Recalst infusion - If you decided to meet with the parathyroid surgeon, please let me know documented in this encounterFlower Hospital02-22-2023 History of Present illness Narrative* Hayden [...] DEVICE 04/21/2010 Performed by THI ALCOCER at [facility] LAPS RPR PARAESPHGL HRNA INCL FUNDPLSTY W/O MESH 04/21/2010 Performed by THI ALCOCER at [facility] MAL LESION FACE,EAR,EYEL 1.1-2CM 01/28/06 Left cheek and right forearm lesions PAST SURGICAL HISTORY OF July 06, 2009 Hysteroscopy D&C PAST SURGICAL HISTORY OF 10/2017 vaginal vault suspension PAST SURGICAL HISTORY OF 10/2017 Lap band removed UNLIS LAPAROSCOPIC PROCEDURE LIVER 04/21/2010 Performed by THI ALCOCER at [facility] Medications Current Outpatient Medications Medication Sig [...] naloxone 4 mg/actuation nasal spray (NARCAN) 1 [place] by nasal (alternating) route as needed for [...] which included preparing to see the patient, [id number] patient care, completing clinical documentation, counseling and educating the patient/family/caregiver, and ordering medications, tests, or procedures. Hayden Flanagan MD documented in this encounterFlower Hospital01-31-2023 Miscellaneous Notes* Telephone Encounter - Adriana Pandya LPN - 08/21/2022 1:39 PM EST Called patient. Verified name and date of . Patient notified and verbalizes understanding. Instruction sheets, Topical Estrogen Therapy and recurrent UTI Step Prevention program, mailed to patient. Patient verified address. Adriana Pandya LPN * Telephone Encounter - Wagner Roldan PA-C - 08/20/2022 5:37 PM EST No infection in the urine, I would like to have her start Topical estrogen , Dr. Teresa gave hi okfor trying it And very low risk due to CVA in past I can send it to her pharmacy but will need instruction sheet on use ERNESTO Morales, [place], KIRT documented in this encounterFlower Hospital01-30-2023 Miscellaneous Notes* Telephone Encounter - Jimbo Post RN - 08/20/2022 4:26 PM EST Patient returned call and given provider's message below with verbalized understanding. * Telephone Encounter - Yael Flores LPN - 08/20/2022 4:20 PM EST Message left for patient to return call to receive provider's message. 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 I would be ok with trying [...] advise, Tarsha Hernández RN documented in this encounterFlower Hospital01-27-2023 History of Present illness Narrative* Wagner Roldan PA-C - 08/17/2022 5:20 PM EST Images from the original note were not included. [facility] NEW CONSULT PATIENT CLINIC [...] naloxone 4 mg/actuation nasal spray (NARCAN) 1 [place] by nasal (alternating) route as needed for [...] DEVICE 04/21/2010 Performed by THI ALCOCER at [facility] LAPS RPR PARAESPHGL HRNA INCL FUNDPLSTY W/O MESH 04/21/2010 Performed by THI ALCOCER at [facility] MAL LESION FACE,EAR,EYEL 1.1-2CM 01/28/06 Left cheek and right forearm lesions PAST SURGICAL HISTORY OF July 06, 2009 Hysteroscopy D&C PAST SURGICAL HISTORY OF 10/2017 vaginal vault suspension PAST SURGICAL HISTORY OF 10/2017 Lap band removed UNLIS LAPAROSCOPIC PROCEDURE LIVER 04/21/2010 Performed by THI ALCOCER at [facility] FAMILY HISTORY: FAMILY HISTORY Problem Relation [...] with Oncology > 3 mo. Appt w/ ERNESTO [place], [place], PAMalachiC for new Rx Follow-up I spent a total of 40 minutes on the date of the service which included preparing to see the patient, face to face patient care, completing clinical documentation, obtaining and/or reviewing separately obtained history, performing a medically appropriate examination, counseling and educating the pat ient/family/caregiver, ordering medications, tests, or procedures, and care coordination. ERNESTO Morales MT, KIRT * Adriana Pandya LPN - 08/17/2022 3:32 PM EST Verified name and date of . CC Post Void Residual HPI: Janay Frederick is a 72 year old female. The patient is here now for an appointment with ERNESTO Morales MT, PA-COV. Procedure: Explained procedure to patient and verbalizes understanding. Performed a PVR. Patient urinated and instructed to empty bladder as much as possible just prior to having PVR done using bladder ultrasound scanner. Results of scan: 23 mL The patient tolerated the procedure well. Plan: Appointment with Wagner. documented in this encounterFlower Hospital01-25-2023 Miscellaneous Notes* Telephone Encounter - Adwoa [...] Loaiza LPN * Telephone Encounter - Divya Riojas - 08/14/2022 9:04 AM EST Patient called stating she has not heard from [facility] yet about STAT US. Please advise patient. documented in this encounterFlower Hospital01-24-2023 Miscellaneous Notes* Telephone Encounter - Yael [...] discussed in office yesterday. documented in this encounterFlower Hospital01-23-2023 History of Present illness Narrative* Shorty [...] for her chronic lower back pain. Taking [place] as prescribed which is working well for [...] DEVICE 04/21/2010 Performed by THI ALCOCER at [facility] LAPS RPR PARAESPHGL HRNA INCL FUNDPLSTY W/O MESH 04/21/2010 Performed by THI ALCOCER at [facility] MAL LESION FACE,EAR,EYEL 1.1-2CM 01/28/06 Left cheek and right forearm lesions PAST SURGICAL HISTORY OF July 06, 2009 Hysteroscopy D&C PAST SURGICAL HISTORY OF 10/2017 vaginal vault suspension PAST SURGICAL HISTORY OF 10/2017 Lap band removed UNLIS LAPAROSCOPIC PROCEDURE LIVER 04/21/2010 Performed by THI ALCOCER at [facility] Family History FAMILY HISTORY Problem Relation [...] naloxone 4 mg/actuation nasal spray (NARCAN) 1 [place] by nasal (alternating) route as needed for [...] rule out DVT. Scheduled tomorrow morning at [facility]. Discussed with her the importance of this [...] 724.2, 338.29, ICD10: M54.50, G89.29 Controlled on [place]. F/u with Dr. Nur for injections. 11. OAB (overactive bladder) - ICD9: 596.51, ICD10: N32.81 Controlled on [place]. 12. Vitamin D deficiency - ICD9: 268.9, ICD10: E55.9 Repeat labs ordered for next month with endocrinology. Continue current regimen. I spent a total of 45 minutes on the date of the service which included preparing to see the patient, [id number] patient care, completing clinical documentation, obtaining and/or reviewing separately obtained history, performing a medically appropriate examination, counseling and educating the pat ient/family/caregiver, and ordering medications, tests, or procedures. Shorty Teresa MD documented in this encounterFlower Hospital01-05-2023 History of Present illness Narrative* Donnell [...] DEVICE 04/21/2010 Performed by THI ALCOCER at [facility] LAPS RPR PARAESPHGL HRNA INCL FUNDPLSTY W/O MESH 04/21/2010 Performed by THI ALCOCER at [facility] MAL LESION FACE,EAR,EYEL 1.1-2CM 01/28/06 Left cheek and right forearm lesions PAST SURGICAL HISTORY OF July 06, 2009 Hysteroscopy D&C PAST SURGICAL HISTORY OF 10/2017 vaginal vault suspension PAST SURGICAL HISTORY OF 10/2017 Lap band removed UNLIS LAPAROSCOPIC PROCEDURE LIVER 04/21/2010 Performed by THI ALCOCER at [facility] MEDICATIONS: Current Outpatient Medications Medication Sig [...] naloxone 4 mg/actuation nasal spray (NARCAN) 1 [place] by nasal (alternating) route as needed for [...] CAPSULE Donnell Braden MD documented in this encounterFlower Hospital12-19-2022 History of Present illness Narrative* Elly Bruno PA-C - 07/09/2022 6:46 PM EST This note was created using Work[employer]. Subjective Janay Frederick is a 72 year [...] naloxone 4 mg/actuation nasal spray (NARCAN) 1 [place] by nasal (alternating) route as needed for [...] DEVICE 04/21/2010 Performed by THI ALCOCER at [facility] LAPS RPR PARAESPHGL HRNA INCL FUNDPLSTY W/O MESH 04/21/2010 Performed by THI ALCOCER at [facility] MAL LESION FACE,EAR,EYEL 1.1-2CM 01/28/06 Left cheek and right forearm lesions PAST SURGICAL HISTORY OF July 06, 2009 Hysteroscopy D&C PAST SURGICAL HISTORY OF 10/2017 vaginal vault suspension PAST SURGICAL HISTORY OF 10/2017 Lap band removed UNLIS LAPAROSCOPIC PROCEDURE LIVER 04/21/2010 Performed by THI ALCOCER at [facility] FAMILY HISTORY Problem Relation Age of [...] CULTURE Elly Bruno PA-C documented in this encounterFlower Hospital12-06-2022 Miscellaneous Notes* Telephone Encounter - Kassandra Sharma APRN.CNP - 06/26/2022 11:51 AM EST PDMP website checked and validated. All prescriptions have been APPROPRIATELY filled. No suspiciousactivity was identified. 06/26/2022 by Kassandra Sharma APRN.CNP * Telephone Encounter - Mickie Babcock Pss [...] patient. Mickie Babcock Pss documented in this encounterFlower Hospital11-10-2022 Miscellaneous Notes* Telephone Encounter - Shorty [...] vomiting, and nausea. Protocols used: Influenza - [id number] documented in this encounterFlower Hospital10-07-2022 Miscellaneous Notes* Letter - Mammography Coordinator - 04/27/2022 12:32 PM EDT April 27, 2022 PID: [id number] Janay Frederick [address] [place] [id number] Dear Ms. Abundo, We are pleased to inform you that [...] report will be [facility] as part of your permanent medical record and are available for your continuing care. Thank you for allowing us to help in meeting your health care needs. Sincerely, Dr. Babin Interpreting Radiologist [facility] (Normal over 40) documented in this encounterFlower Hospital10-06-2022 History of Present illness Narrative* RT [...] 26, 2022 3:10 PM documented in this encounterFlower Hospital09-30-2022 Miscellaneous Notes* Telephone Encounter - Isabell Hancock Cma - 04/20/2022 10:52 AM EDT Patient notified and verbalized understanding Isabell Hancock Cma * Telephone Encounter - Shotry Teresa MD - 04/19/2022 4:43 PM EDT [...] this is lab error. documented in this encounterFlower Hospital09-28-2022 Miscellaneous Notes* Telephone Encounter - Tarsha Hernández RN - 04/18/2022 11:49 AM EDT Patient calls and is asking if prescription can be sent to [facility]. Please review and advise, Tarsha Hernández RN documented in this encounterFlower Hospital09-13-2022 Miscellaneous Notes* Telephone Encounter - Griselda [...] from provider. * [facility] 2022 2:52 PM EDT Famotidine 20 mg, not found on medication list, please send this RX to her pharmacy, [facility] in [place]. Electronically signed by Payton Marie [facility] at 2022 2:54 PM EDT documented in this encounterFlower Hospital09-07-2022 Miscellaneous Notes* Telephone Encounter - Marlene Loaiza LPN - 03/28/2022 8:35 AM EDT Paperwork faxed to [facility] at . Marlene Loaiza LPN * Telephone Encounter - Kassandra Sharma APRN.CDL FLATBED TRUCK DRIVER - 03/28/2022 7:42 AM EDT Please fax paperwork back to [facility]. Kassandra Sharma APRN.CNP * Telephone Encounter - Marlene Loaiza LPN - 03/27/2022 9:58 AM EDT Patient notified of message below. States she will try the medication they're recommending. Please send to [facility] Arellano. Marlene Loaiza LPN * Telephone Encounter - Kassandra Sharma APRN.CNP - 03/27/2022 9:46 AM EDT Please call patient and let her know [facility] has sent request over to change Oxybutynin for Detrol ER due to patient was having trouble cutting tablets in half and dry mouth. Does she want me to change this. Kassandra Sharma APRN.LENA documented in this encounterFlower Hospital08-28-2022 Miscellaneous Notes* Telephone Encounter - Shorty Teresa MD - 03/18/2022 8:58 AM EDT PDMP website checked and validated. All prescriptions have been APPROPRIATELY filled. No suspiciousactivity was identified. 03/18/2022 by Shorty Teresa MD * Telephone Encounter - Yael Flores LPN - 03/16/2022 2:00 PM EDT ELDER 01/31/22 NOV 08/13/21 * Telephone Encounter - Petra Riojas - 03/16/2022 12:34 PM EDT Patient has been identified by name and date of : Yes Requested Prescriptions Pending Prescriptions Disp Refills gabapentin (NEURONTIN) 300 mg capsule 180 capsule 0 Sig: Take 1 capsule by mouth twice daily for 90 days. RX INSTRUCTIONS: Patient aware RX will be sent to pharmacy. No need to notify patient. Petra Presley Pss documented in this encounterFlower Hospital07-21-2022 Miscellaneous Notes* Telephone Encounter - Neva [...] levels in 2-3 months. documented in this encounterFlower Hospital07-15-2022 History of Past illness Narrative* Problem Noted Date Diagnosed Date Resolved Date Insomnia 02/02/2022 01/31/2023 Preop testing 10/11/2017 06/26/2018 Overview: Added automatically from request for surgery [id number] Dysphagia 07/09/2017 10/24/2018 Gastric band slippage 07/09/20172017 [...] of this encounter (statuses as of 01/31/2023) [facility] of Past illness Narrative* Problem Noted Date Diagnosed Date Resolved Date Insomnia 02/02/2022 01/31/2023 Preop testing 10/11/2017 06/26/2018 Overview: Added automatically from request for surgery [id number] Dysphagia 07/09/2017 10/24/2018 Gastric band slippage 07/09/20172017 [...] of this encounter (statuses as of 02/01/2023) [facility] of Past illness Narrative* Problem Noted Date Diagnosed Date Resolved Date Insomnia 02/02/2022 01/31/2023 Preop testing 10/11/2017 06/26/2018 Overview: Added automatically from request for surgery [id number] Dysphagia 07/09/2017 10/24/2018 Gastric band slippage 07/09/20172017 [...] of this encounter (statuses as of 02/01/2023) [facility] of Past illness Narrative* Problem Noted Date Diagnosed Date Resolved Date Insomnia 02/02/2022 01/31/2023 Preop testing 10/11/2017 06/26/2018 Overview: Added automatically from request for surgery [id number] Dysphagia 07/09/2017 10/24/2018 Gastric band slippage 07/09/20172017 [...] of this encounter (statuses as of 02/05/2023) [facility] of Past illness Narrative* Problem Noted Date Diagnosed Date Resolved Date Insomnia 02/02/2022 01/31/2023 Preop testing 10/11/2017 06/26/2018 Overview: Added automatically from request for surgery [id number] Dysphagia 07/09/2017 10/24/2018 Gastric band slippage 07/09/20172017 [...] of this encounter (statuses as of 02/27/2023) [facility] of [facility] illness Narrative* Problem Noted Date Diagnosed Date Resolved Date Insomnia 02/02/2022 01/31/2023 Preop testing 10/11/2017 06/26/2018 Overview: Added automatically from request for surgery [id number] Dysphagia 07/09/2017 10/24/2018 Gastric band slippage 07/09/20172017 [...] of this encounter (statuses as of 03/28/2023) [facility] of Past illness Narrative* Problem Noted Date Diagnosed Date Resolved Date Insomnia 02/02/2022 01/31/2023 Preop testing 10/11/2017 06/26/2018 Overview: Added automatically from request for surgery [id number] Dysphagia 07/09/2017 10/24/2018 Gastric band slippage 07/09/20172017 [...] of this encounter (statuses as of 2023) [facility] of Past illness Narrative* Problem Noted Date Diagnosed Date Resolved Date Insomnia 02/02/2022 01/31/2023 Preop testing 10/11/2017 06/26/2018 Overview: Added automatically from request for surgery [id number] Dysphagia 07/09/2017 10/24/2018 Gastric band slippage 07/09/20172017 [...] of this encounter (statuses as of 04/12/2023) [facility] of [facility] illness Narrative* Problem Noted Date Diagnosed Date Resolved Date Insomnia 02/02/2022 01/31/2023 Preop testing 10/11/2017 06/26/2018 Overview: Added automatically from request for surgery [id number] Dysphagia 07/09/2017 10/24/2018 Gastric band slippage 07/09/20172017 [...] of this encounter (statuses as of 05/21/2023) [facility] illness Narrative* Problem Noted Date Diagnosed Date Resolved Date Insomnia 02/02/2022 01/31/2023 Preop testing 10/11/2017 06/26/2018 Overview: Added automatically from request for surgery [id number] Dysphagia 07/09/2017 10/24/2018 Gastric band slippage 07/09/20172017 [...] of this encounter (statuses as of 05/26/2023) [facility] illness Narrative* Problem Noted Date Diagnosed Date Resolved Date Insomnia 02/02/2022 01/31/2023 Preop testing 10/11/2017 06/26/2018 Overview: Added automatically from request for surgery [id number] Dysphagia 07/09/2017 10/24/2018 Gastric band slippage 07/09/20172017 [...] of this encounter (statuses as of 05/30/2023) [facility] Miscellaneous Notes* Telephone Encounter - Neva [...] ultrasound to further evaluate. documented in this encounterFlower Hospital06-28-2022 Miscellaneous Notes* Telephone Encounter - Latanya [...] 01/15/2022 4:22 PM EDT Will send to [employer] to possibly help assist with this. Thank you. * Telephone Encounter - Kassandra Sharma APRN.CNP - 01/15/2022 3:38 PM EDT She would need to discuss this with the surgeon who performed the surgery. Thanks, Kassandra Sharma APRN.LENA * Telephone Encounter - Vanesa Tomas RN [...] any chance? Thank you. documented in this encounterFlower Hospital06-08-2022 Miscellaneous Notes* Telephone Encounter - Marlene Loaiza LPN - 12/27/2021 2:26 PM EDT Order faxed to [facility]. Patient notified. Marlene Loaiza LPN * Telephone Encounter - Kassandra Sharma APRN.CNP - 12/27/2021 1:28 PM EDT Please fax orders for compression hose. In my outbox. Please let patient know when faxed. Kassandra Sharma APRN.LENA * Telephone Encounter - Carmel Cheng Pss - 12/27/2021 12:44 PM EDT Janay Frederick is calling Shorty Teresa MD today to request a prescription/order is faxed to [facility] for compression stockings: Extremity: Pair Compression: 20-30 mmHg Style: Patient choice (open or closed toe) Length: Knee-high Current ones are over one year old and worn out. Please notify patient once this is completed. Patient has been identified by name and birthdate. Duration of symptoms: N/A Person calling: self Call patient at: on cell [phone] (home) [phone] (cell) Was an appointment scheduled: No Closing statement: Results or non-symptom based questions: Thank you for calling [facility], your call will be returned within the next business day. Carmel Cheng Pss documented in this encounterFlower Hospital06-06-2022 Miscellaneous Notes* Telephone Encounter - Kassandra Sharma APRN.CNP - 12/25/2021 1:32 PM EDT PDMP website checked and validated. All prescriptions have been APPROPRIATELY filled. No suspiciousactivity was identified. 12/25/2021 by Kassandra Sharma APRN.CNP * Telephone Encounter - Chelsea Toro Pss - 12/25/2021 11:34 AM EDT Patient just wanted to let Dr. Teresa to know that she is NOT using pain patches as she does not want any opiates in her system. Patient would also like a new prescription for Compression socks as well. If you can contact patient [phone]. Patient has been identified by name and [...] patient. Chelsea Toro Pss documented in this encounterFlower Hospital05-17-2022 History of Present illness Narrative* Shorty Teresa MD - 12/05/2021 7:02 PM EDT Chief Complaint Patient presents with: ER F/U: 12/02/21 HPI Janay Frederick is a 71 year old female who presents here today for ER Follow Up.. Patient evaluated at [facility] ED on 12/02 for complaint of dizziness and increased fatigue starting the day prior. Did have fall the day before landing on her [employer] without injury. Also noted some nausea and [...] should replace it once per week. Taking [place] 3 times per day as well. Does [...] DEVICE 04/21/2010 Performed by THI ALCOCER at [facility] LAPS RPR PARAESPHGL HRNA INCL FUNDPLSTY W/O MESH 04/21/2010 Performed by THI ALCOCER at [facility] MAL LESION FACE,EAR,EYEL 1.1-2CM 01/28/06 Left cheek and right forearm lesions PAST SURGICAL HISTORY OF July 06, 2009 Hysteroscopy D&C PAST SURGICAL HISTORY OF 10/2017 vaginal vault suspension PAST SURGICAL HISTORY OF 10/2017 Lap band removed UNLIS LAPAROSCOPIC PROCEDURE LIVER 04/21/2010 Performed by THI ALCOCER at [facility] Family History FAMILY HISTORY Problem Relation [...] SPRAY Shorty Teresa MD documented in this encounterFlower Hospital03-23-2018 History of Past illness Narrative* Problem Noted Date Resolved Date Preop testing 10/11/2017 06/26/2018 Overview: Added automatically from request for surgery [id number] Dysphagia 07/09/2017 10/24/2018 Gastric band slippage 07/09/2017 [...] of this encounter (statuses as of 12/06/2021) [facility] of [facility] illness Narrative* Problem Noted Date Resolved Date Preop testing 10/11/2017 06/26/2018 Overview: Added automatically from request for surgery [id number] Dysphagia 07/09/2017 10/24/2018 Gastric band slippage 07/09/2017 [...] of this encounter (statuses as of 12/25/2021) [facility] History of Past illness Narrative* Problem Noted Date Resolved Date Preop testing 10/11/2017 06/26/2018 Overview: Added automatically from request for surgery [id number] Dysphagia 07/09/2017 10/24/2018 Gastric band slippage 07/09/2017 [...] of this encounter (statuses as of 12/27/2021) [facility] History of Past illness Narrative* Problem Noted Date Resolved Date Preop testing 10/11/2017 06/26/2018 Overview: Added automatically from request for surgery [id number] Dysphagia 07/09/2017 10/24/2018 Gastric band slippage 07/09/2017 [...] of this encounter (statuses as of 01/24/2022) [facility] History of Past illness Narrative* Problem Noted Date Resolved Date Preop testing 10/11/2017 06/26/2018 Overview: Added automatically from request for surgery [id number] Dysphagia 07/09/2017 10/24/2018 Gastric band slippage 07/09/2017 [...] of this encounter (statuses as of 02/08/2022) [facility] History of Past illness Narrative* Problem Noted Date Resolved Date Preop testing 10/11/2017 06/26/2018 Overview: Added automatically from request for surgery [id number] Dysphagia 07/09/2017 10/24/2018 Gastric band slippage 07/09/2017 [...] of this encounter (statuses as of 02/08/2022) [facility] History of Past illness Narrative* Problem Noted Date Resolved Date Preop testing 10/11/2017 06/26/2018 Overview: Added automatically from request for surgery [id number] Dysphagia 07/09/2017 10/24/2018 Gastric band slippage 07/09/2017 [...] of this encounter (statuses as of 03/18/2022) [facility] History of Past illness Narrative* Problem Noted Date Resolved Date Preop testing 10/11/2017 06/26/2018 Overview: Added automatically from request for surgery [id number] Dysphagia 07/09/2017 10/24/2018 Gastric band slippage 07/09/2017 [...] of this encounter (statuses as of 03/28/2022) [facility] History of Past illness Narrative* Problem Noted Date Resolved Date Preop testing 10/11/2017 06/26/2018 Overview: Added automatically from request for surgery [id number] Dysphagia 07/09/2017 10/24/2018 Gastric band slippage 07/09/2017 [...] of this encounter (statuses as of 04/03/2022) [facility] History of Past illness Narrative* Problem Noted Date Resolved Date Preop testing 10/11/2017 06/26/2018 Overview: Added automatically from request for surgery [id number] Dysphagia 07/09/2017 10/24/2018 Gastric band slippage 07/09/2017 [...] of this encounter (statuses as of 04/18/2022) [facility] History of Past illness Narrative* Problem Noted Date Resolved Date Preop testing 10/11/2017 06/26/2018 Overview: Added automatically from request for surgery [id number] Dysphagia 07/09/2017 10/24/2018 Gastric band slippage 07/09/2017 [...] of this encounter (statuses as of 04/20/2022) [place] [facility]-23-2018 History of Past illness Narrative* Problem Noted Date Resolved Date Preop testing 10/11/2017 06/26/2018 Overview: Added automatically from request for surgery [id number] Dysphagia 07/09/2017 10/24/2018 Gastric band slippage 07/09/2017 [...] of this encounter (statuses as of 04/24/2022) [facility] History of Past illness Narrative* Problem Noted Date Resolved Date Preop testing 10/11/2017 06/26/2018 Overview: Added automatically from request for surgery [id number] Dysphagia 07/09/2017 10/24/2018 Gastric band slippage 07/09/2017 [...] of this encounter (statuses as of 04/27/2022) [facility] History of Past illness Narrative* Problem Noted Date Resolved Date Preop testing 10/11/2017 06/26/2018 Overview: Added automatically from request for surgery [id number] Dysphagia 07/09/2017 10/24/2018 Gastric band slippage 07/09/2017 [...] of this encounter (statuses as of 05/01/2022) [facility] History of Past illness Narrative* Problem Noted Date Resolved Date Preop testing 10/11/2017 06/26/2018 Overview: Added automatically from request for surgery [id number] Dysphagia 07/09/2017 10/24/2018 Gastric band slippage 07/09/2017 [...] of this encounter (statuses as of 05/31/2022) [facility] History of Past illness Narrative* Problem Noted Date Resolved Date Preop testing 10/11/2017 06/26/2018 Overview: Added automatically from request for surgery [id number] Dysphagia 07/09/2017 10/24/2018 Gastric band slippage 07/09/2017 [...] of this encounter (statuses as of 06/26/2022) [facility] History of Past illness Narrative* Problem Noted Date Resolved Date Preop testing 10/11/2017 06/26/2018 Overview: Added automatically from request for surgery [id number] Dysphagia 07/09/2017 10/24/2018 Gastric band slippage 07/09/2017 [...] of this encounter (statuses as of 07/09/2022) [facility] History of Past illness Narrative* Problem Noted Date Resolved Date Preop testing 10/11/2017 06/26/2018 Overview: Added automatically from request for surgery [id number] Dysphagia 07/09/2017 10/24/2018 Gastric band slippage 07/09/2017 [...] of this encounter (statuses as of 07/10/2022) [facility] History of Past illness Narrative* Problem Noted Date Resolved Date Preop testing 10/11/2017 06/26/2018 Overview: Added automatically from request for surgery [id number] Dysphagia 07/09/2017 10/24/2018 Gastric band slippage 07/09/2017 [...] of this encounter (statuses as of 07/27/2022) [facility] History of Past illness Narrative* Problem Noted Date Resolved Date Preop testing 10/11/2017 06/26/2018 Overview: Added automatically from request for surgery [id number] Dysphagia 07/09/2017 10/24/2018 Gastric band slippage 07/09/2017 [...] of this encounter (statuses as of 08/14/2022) [facility] History of Past illness Narrative* Problem Noted Date Resolved Date Preop testing 10/11/2017 06/26/2018 Overview: Added automatically from request for surgery [id number] Dysphagia 07/09/2017 10/24/2018 Gastric band slippage 07/09/2017 [...] of this encounter (statuses as of 08/14/2022) [facility] History of Past illness Narrative* Problem Noted Date Resolved Date Preop testing 10/11/2017 06/26/2018 Overview: Added automatically from request for surgery [id number] Dysphagia 07/09/2017 10/24/2018 Gastric band slippage 07/09/2017 [...] of this encounter (statuses as of 08/15/2022) [facility] History of Past illness Narrative* Problem Noted Date Resolved Date Preop testing 10/11/2017 06/26/2018 Overview: Added automatically from request for surgery [id number] Dysphagia 07/09/2017 10/24/2018 Gastric band slippage 07/09/2017 [...] of this encounter (statuses as of 08/21/2022) [facility] History of Past illness Narrative* Problem Noted Date Resolved Date Preop testing 10/11/2017 06/26/2018 Overview: Added automatically from request for surgery [id number] Dysphagia 07/09/2017 10/24/2018 Gastric band slippage 07/09/2017 [...] of this encounter (statuses as of 08/21/2022) [facility] History of Past illness Narrative* Problem Noted Date Resolved Date Preop testing 10/11/2017 06/26/2018 Overview: Added automatically from request for surgery [id number] Dysphagia 07/09/2017 10/24/2018 Gastric band slippage 07/09/2017 [...] of this encounter (statuses as of 09/12/2022) [facility] History of Past illness Narrative* Problem Noted Date Resolved Date Preop testing 10/11/2017 06/26/2018 Overview: Added automatically from request for surgery [id number] Dysphagia 07/09/2017 10/24/2018 Gastric band slippage 07/09/2017 [...] of this encounter (statuses as of 09/13/2022) [facility] History of Past illness Narrative* Problem Noted Date Resolved Date Preop testing 10/11/2017 06/26/2018 Overview: Added automatically from request for surgery [id number] Dysphagia 07/09/2017 10/24/2018 Gastric band slippage 07/09/2017 [...] of this encounter (statuses as of 09/13/2022) [facility] History of Past illness Narrative* Problem Noted Date Resolved Date Preop testing 10/11/2017 06/26/2018 Overview: Added automatically from request for surgery [id number] Dysphagia 07/09/2017 10/24/2018 Gastric band slippage 07/09/2017 [...] of this encounter (statuses as of 09/13/2022) [facility] History of Past illness Narrative* Problem Noted Date Resolved Date Preop testing 10/11/2017 06/26/2018 Overview: Added automatically from request for surgery [id number] Dysphagia 07/09/2017 10/24/2018 Gastric band slippage 07/09/2017 [...] of this encounter (statuses as of 09/13/2022) [facility] History of Past illness Narrative* Problem Noted Date Resolved Date Preop testing 10/11/2017 06/26/2018 Overview: Added automatically from request for surgery [id number] Dysphagia 07/09/2017 10/24/2018 Gastric band slippage 07/09/2017 [...] of this encounter (statuses as of 09/13/2022) [facility] History of Past illness Narrative* Problem Noted Date Resolved Date Preop testing 10/11/2017 06/26/2018 Overview: Added automatically from request for surgery [id number] Dysphagia 07/09/2017 10/24/2018 Gastric band slippage 07/09/2017 [...] of this encounter (statuses as of 09/21/2022) [facility] History of Past illness Narrative* Problem Noted Date Resolved Date Preop testing 10/11/2017 06/26/2018 Overview: Added automatically from request for surgery [id number] Dysphagia 07/09/2017 10/24/2018 Gastric band slippage 07/09/2017 [...] of this encounter (statuses as of 09/24/2022) [facility] History of Past illness Narrative* Problem Noted Date Resolved Date Preop testing 10/11/2017 06/26/2018 Overview: Added automatically from request for surgery [id number] Dysphagia 07/09/2017 10/24/2018 Gastric band slippage 07/09/2017 [...] of this encounter (statuses as of 10/22/2022) [facility] History of Past illness Narrative* Problem Noted Date Resolved Date Preop testing 10/11/2017 06/26/2018 Overview: Added automatically from request for surgery [id number] Dysphagia 07/09/2017 10/24/2018 Gastric band slippage 07/09/2017 [...] of this encounter (statuses as of 11/14/2022) [facility] History of Past illness Narrative* Problem Noted Date Resolved Date Preop testing 10/11/2017 06/26/2018 Overview: Added automatically from request for surgery [id number] Dysphagia 07/09/2017 10/24/2018 Gastric band slippage 07/09/2017 [...] of this encounter (statuses as of 11/15/2022) [facility] History of Past illness Narrative* Problem Noted Date Resolved Date Preop testing 10/11/2017 06/26/2018 Overview: Added automatically from request for surgery [id number] Dysphagia 07/09/2017 10/24/2018 Gastric band slippage 07/09/2017 [...] of this encounter (statuses as of 11/15/2022) [facility] History of Past illness Narrative* Problem Noted Date Resolved Date Preop testing 10/11/2017 06/26/2018 Overview: Added automatically from request for surgery [id number] Dysphagia 07/09/2017 10/24/2018 Gastric band slippage 07/09/2017 [...] of this encounter (statuses as of 11/21/2022) [facility] History of Past illness Narrative* Problem Noted Date Resolved Date Preop testing 10/11/2017 06/26/2018 Overview: Added automatically from request for surgery [id number] Dysphagia 07/09/2017 10/24/2018 Gastric band slippage 07/09/2017 [...] of this encounter (statuses as of 11/26/2022) [facility] History of Past illness Narrative* Problem Noted Date Resolved Date Preop testing 10/11/2017 06/26/2018 Overview: Added automatically from request for surgery [id number] Dysphagia 07/09/2017 10/24/2018 Gastric band slippage 07/09/2017 [...] of this encounter (statuses as of 11/28/2022) [facility] History of Past illness Narrative* Problem Noted Date Resolved Date Preop testing 10/11/2017 06/26/2018 Overview: Added automatically from request for surgery [id number] Dysphagia 07/09/2017 10/24/2018 Gastric band slippage 07/09/2017 [...] of this encounter (statuses as of 11/29/2022) [facility] History of Past illness Narrative* Problem Noted Date Resolved Date Preop testing 10/11/2017 06/26/2018 Overview: Added automatically from request for surgery [id number] Dysphagia 07/09/2017 10/24/2018 Gastric band slippage 07/09/2017 [...] of this encounter (statuses as of 12/03/2022) [facility] History of Past illness Narrative* Problem Noted Date Resolved Date Preop testing 10/11/2017 06/26/2018 Overview: Added automatically from request for surgery [id number] Dysphagia 07/09/2017 10/24/2018 Gastric band slippage 07/09/2017 [...] of this encounter (statuses as of 12/20/2022) [facility] History of Past illness Narrative* Problem Noted Date Resolved Date Preop testing 10/11/2017 06/26/2018 Overview: Added automatically from request for surgery [id number] Dysphagia 07/09/2017 10/24/2018 Gastric band slippage 07/09/2017 [...] of this encounter (statuses as of 01/04/2023) [facility] Acute cystitis without hematuria- Primary Acute cystitis Dizziness Dizziness and giddiness Fatigue, unspecified type Hypokalemia Hypopotassemia Opioid use [facility] Lower extremity edema- Primary Edema Venous incompetence Unspecified venous (peripheral) insufficiency [facility] Diagnosis Elevated alkaline phosphatase level Other nonspecific abnormal serum enzyme levels Elevated LFTs Other abnormal blood chemistry [facility] Elevated alkaline phosphatase level- Primary Other nonspecific abnormal serum enzyme levels Elevated LFTs Other abnormal blood chemistry [facility] Diagnosis Gastroesophageal reflux disease, unspecified whether esophagitis present Esophageal dysphagia Dysphagia, pharyngoesophageal phase [facility] Diagnosis Hypokalemia- Primary Hypopotassemia [facility]* Diagnosis Elevated LFTs- Primary Other abnormal blood chemistry Elevated alkaline phosphatase level Other nonspecific abnormal serum enzyme levels Screening mamm[facility] for breast cancer [facility]ening [facility] for [facility] cancer [facility] Diagnosis Acute UTI- Primary Urinary tract infection, site not specified [facility] Diagnosis Urinary frequency- Primary [facility] Diagnosis Left leg swelling- Primary Swelling [...] affecting unspecified side documented in this encounter [facility] note* Diagnosis Urinary tract infection without hematuria, site unspecified- Primary Atrophic vaginitis Postmenopausal atrophic vaginitis [facility]* Diagnosis Osteoporosis without current pathological fracture, unspecified osteoporosis type [M81.0 (ICD-10-CM)]- Primary Hyperparathyroidism (HCC) Hyperparathyroidism, unspecified [facility]* Diagnosis Hyperparathyroidism (HCC)- Primary Hyperparathyroidism, unspecified documented in this encounter [facility] note* Diagnosis Osteopenia, unspecified location [facility]* Diagnosis Other osteoporosis, unspecified pathological fracture presence- Primary [facility]* Diagnosis Hyperparathyroidism (HCC)- Primary Hyperparathyroidism, unspecified [facility]* Diagnosis Skin tear of left lower leg without complication, initial encounter- Primary Bilateral lower extremity edema Edema [facility]* Diagnosis Pain in both knees, unspecified chronicity- Primary [facility]* Diagnosis Primary hyperparathyroidism (HCC)- Primary Primary hyperparathyroidism [facility] Diagnosis Hyperparathyroidism (HCC) Hyperparathyroidism, unspecified [facility]* Diagnosis Primary hyperparathyroidism (HCC)- Primary Primary hyperparathyroidism Hypercalcemia Hyperparathyroidism (HCC) Hyperparathyroidism, unspecified Primary hyperparathyroidism (HCC) Primary hyperparathyroidism [facility]* Diagnosis Primary osteoarthritis of right knee- Primary Primary localized osteoarthrosis, lower leg Primary hyperparathyroidism (HCC) Primary hyperparathyroidism documented in this encounter [facility] note* Diagnosis Pre-op evaluation- Primary Preoperative examination, [...] (HCC) Primary hyperparathyroidism documented in this encounter [facility] note* Diagnosis Primary hyperparathyroidism (HCC) Primary hyperparathyroidism Hypercalcemia Primary hyperparathyroidism (HCC) Primary hyperparathyroidism documented in this encounter [facility] note* Diagnosis Hyperparathyroidism (HCC)- Primary Hyperparathyroidism, unspecified Primary hyperparathyroidism (HCC) Primary hyperparathyroidism documented in this encounter [facility] note* Diagnosis Osteopenia, unspecified location- Primary documented in this encounter [facility] note* Diagnosis Mixed hyperlipidemia documented in this encounter [facility] note* Diagnosis Screening mammogram for breast cancer- Primary documented in this encounter [facility] note* Diagnosis Screening mammogram for breast cancer documented in this encounter [facility] note* Diagnosis Hyperparathyroidism (HCC)- Primary Hyperparathyroidism, unspecified Osteoporosis without current pathological fracture, unspecified osteoporosis type documented in this encounter [facility] note* Diagnosis Mixed hyperlipidemia- Primary Immunization due [...] (HCC) Morbid obesity documented in this encounter [place] for referral (narrative)* Diagnostic Procedure Only (Routine) - Closed Specialty Diagnoses / Procedures Referred By Contac t Referred To Contact US IMAGING Diagnoses Elevated alkaline phosphatase level Elevated LFTs Procedures US ABD RT UPPER QUADRANT US ABDOMINAL REAL TIME W/IMAGE LIMITED Shorty Teresa MD [address] [place] [address] Us Imaging Referral ID Status Reason Start Date Expiration Date V isits Requested Visits Authorized [id number] Closed Auto-Generated Referral Patient Cleared - INN Insurance Found 02/02/2022 07/21/2022 1 1 [place] for referral (narrative)* Diagnostic Procedure Only (Routine) - Closed Specialty Diagnoses / Procedures Referred By Antione macias Referred To Contact US IMAGING Diagnoses Elevated alkaline phosphatase level Elevated LFTs Procedures US ABD RT UPPER QUADRANT US ABDOMINAL REAL TIME W/IMAGE LIMITED Shorty Teresa MD [address] [place] [address] Us Imaging Referral ID Status Reason Start Date Expiration Date V isits Requested Visits Authorized [id number] Closed Auto-Generated Referral Patient Cleared - INN Insurance Found 02/02/2022 07/21/2022 1 1 [place] for referral (narrative)* Diagnostic Procedure Only (Routine) - Closed Specialty Diagnoses / Procedures Referred By Antione macias Referred To Contact BR IMAGING Diagnoses Screening mammogram for breast cancer Procedures CRISTINA SCREENING SCREENING MAMMOGRAPHY BI 2-VIEW BREAST INC CAD Shorty Teresa MD [address] [place] [address] Br Imaging [address] [place] [address] Referral ID Status Reason Start Date Expiration Date V isits Requested Visits Authorized [id number] Closed Auto-Generate d Referral 02/08/2022 03/10/2023 1 1 [place] for referral (narrative)* Outpatient Procedure (Urgent) - Pending Review Specialty Diagnoses / Procedures Referred By Antione macias Ref[facility] Diagnoses Left leg swelling Procedures US LEG VEIN DVT UNL VAS LAB DUP-SCAN XTR VEINS UNILATERAL/LIMITED STUDY Shorty Teresa MD [address] [place] [address] [facility] [address] [place] [address] Referral ID Status Reason Start Date Expiration Date Visits Requested Visits Authorized [id number] Pending Review Auto-Generat ed Referral 08/13/2022 08/13/2023 1 1 [facility] for referral (narrative)* Diagnostic Procedure Only (Routine) - Pending Review Specialty Diagnoses / Procedures Referred By Contac t Referred To Contact XR IMAGING Diagnoses Pain in both knees, unspecified chronicity Procedures XR KNEE POST OP 3V AP/LAT/MERCHANT BILATERAL RADIOLOGIC EXAMINATION KNEE 3 VIEWS John Desai PA-C [address] [place] [address] Xr Imaging Referral ID Status Reason Start Date Expiration Date Visits Requested Visits Authorized [id number] Pending Review Auto-Generat ed Referral 11/14/2022 12/14/2023 1 1 [place] for referral (narrative)* Diagnostic Procedure Only (Routine) - Closed Specialty Diagnoses / Procedures Referred By Contact Referred To Contact [facility] Diagnoses Primary hyperparathyroidism (HCC) Hypercalcemia Procedures NM PARATHYROID W SPECT/CT PARATHYROID IMAGING W/TOMOGRAPHIC SPECT & CT Leydi Vance MD [address] [place] [address] [facility] [address] [place] [address] Referral ID Status Reason Start Date Expiration Date V isits Requested Visits Authorized [id number] Closed Auto-Generate d Referral 12/03/2022 01/02/2024 1 1 T [place] for referral (narrative)* Diagnostic Procedure Only (Routine) - Authorized Specialty Diagnoses / Procedures Referred By Antione macias Referred To Contact BR IMAGING Diagnoses Screening mammogram for breast cancer Procedures CRISTINA SCREENING SCREENING MAMMOGRAPHY BI 2-VIEW BREAST INC CAD Shorty Teresa MD [address] [place] [address] Br Imaging [address] [place] [address] Referral ID Status Reason Start Date Expiration Date Visits Requested Visits Authorized [id number] Authorized Auto-Generat ed Referral 04/12/2023 05/11/2024 1 1 [place] for referral (narrative)* Diagnostic Procedure Only (Routine) - Closed Specialty Diagnoses / Procedures Referred By Contac t Referred To Contact BR IMAGING Diagnoses Screening mammogram for breast cancer Procedures CRISTINA SCREENING SCREENING MAMMOGRAPHY BI 2-VIEW BREAST INC CAD Shorty Teresa MD [address] [place], [place] [id number] [facility] [address] [place] [address] Referral ID Status Reason Start Date Expiration Date V isits Requested Visits Authorized [id number] Closed Auto-Generate d Referral 04/12/2023 05/11/2024 1 1 T [place] for referral (narrative)* Diagnostic Procedure Only (Routine) - Pending Review Specialty Diagnoses / Procedures Referred By Contac t Referred To Contact XR IMAGING Diagnoses Hyperparathyroidism (HCC) Osteoporosis without current pathological fracture, unspecified osteoporosis type Procedures DXA-FOREARM SKELETON DXA BONE DENSITY STUDY 1/>SITES APPENDICLR Hayden Carlson MD [facility] [place] [address] Xr Imaging [facility] Referral ID Status Reason Start Date Expiration Date Visits Requested Visits Authorized [id number] Pending Review Auto-Generat ed Referral 09/12/2023 06/27/2024 1 1 [facility] for visit Narrative* Diagnostic Procedure Only (Routine) - Closed Specialty Diagnoses / Procedures Referred By Rebeccaac t Referred To Contact US IMAGING Diagnoses Elevated alkaline phosphatase level Elevated LFTs Procedures US ABD RT UPPER QUADRANT US ABDOMINAL REAL TIME W/IMAGE LIMITED Shorty Teresa MD [address] [place] [address] Us Imaging Referral ID Status Reason Start Date Expiration Date V isits Requested Visits Authorized [id number] Closed Auto-Generated Referral Patient Cleared - INN Insurance Found 02/02/2022 07/21/2022 1 1 [place] for visit Narrative* Diagnostic Procedure Only (Routine) - Closed Specialty Diagnoses / Procedures Referred By Contac t Referred To Contact BR IMAGING Diagnoses Screening mammogram for breast cancer Procedures CRISTINA SCREENING SCREENING MAMMOGRAPHY BI 2-VIEW BREAST INC CAD Shorty Teresa MD [address] [place] [address] [facility] Imaging [address] [place] [address] [id number] Referral ID Status Reason Start Date Expiration Date V isits Requested Visits Authorized [id number] Closed Auto-Generate d Referral 02/08/2022 03/10/2023 1 1 [place] for visit Narrative* Diagnostic Procedure Only (Routine) - Closed Specialty Diagnoses / Procedures Referred By Contact Referred To Contact MOLECULAR & FUNCTIONAL IMAGING Diagnoses Primary hyperparathyroidism (HCC) Hypercalcemia Procedures NM PARATHYROID W SPECT/CT PARATHYROID IMAGING W/TOMOGRAPHIC SPECT & CT Leydi Vance MD [address] [place] [address] Molecular & Functional Imaging [address] [place] [address] Referral ID Status Reason Start Date Expiration Date V isits Requested Visits Authorized [id number] Closed Auto-Generate d Referral 12/03/2022 01/02/2024 1 1 [place] for visit Narrative* Diagnostic Procedure Only (Routine) - Closed Specialty Diagnoses / Procedures Referred By Contac t Referred To Contact BR IMAGING Diagnoses Screening mammogram for breast cancer Procedures CRISTINA SCREENING SCREENING MAMMOGRAPHY BI 2-VIEW BREAST INC CAD Shorty Teresa MD [address] [place] [address] Br Imaging [address] [place] [address] Referral ID Status Reason Start Date Expiration Date V isits Requested Visits Authorized [id number] Closed Auto-Generate d Referral 04/12/2023 05/11/2024 1 1 [facility] Summary Purpose Family History No Family History Records FoundNo Family History Records FoundNo Family History Records FoundNo Family History Records Found Advance Directives No Advanced Directives Records FoundDocuments on File Type Date Recorded Patient Child Welfare Consultant Expl anation Advance Directive(s) Advance Directive(s) 10/31/2017 2:52 PM Advance Directive(s) 07/16/2017 2:14 PM Advance Directive(s) 07/16/2017 2:15 PM Advance Directive(s) 07/12/2017 12:38 PM Advance Directive(s) 07/20/2016 12:15 PM Documents on File Type Date Recorded Patient Child Welfare Consultant Expl anation Advance Directive(s) Advance Directive(s) 10/31/2017 2:52 PM Advance Directive(s) 07/16/2017 2:14 PM Advance Directive(s) 07/16/2017 2:15 PM Advance Directive(s) 07/12/2017 12:38 PM Advance Directive(s) 07/20/2016 12:15 PM Documents on File Type Date Recorded Patient Child Welfare Consultant Expl anation Advance Directive(s) 07/16/2017 2:15 PM Documents on File Type Date Recorded Patient Child Welfare Consultant Expl anation Advance Directive(s) 07/16/2017 2:15 PM Reason for Referral Specialty Diagnoses / Procedures Referred By Antione macias Referred To Contact Endocrinology Diagnoses Elevated LFTs Elevated alkaline phosphatase level Procedures CONSULT TO ENDOCRINOLOGY OFFICE/OUTPATIENT NEW HIGH MDM 60-74 MINUTES Shorty Teresa MD [address] [place] [address] Referral ID Status Reason Start Date Expiration Date Visits Requested Visits Authorized [id number] Pending Review PCP Requested Referral 04/24/2022 02/08/2023 1 1 Specialty Diagnoses / Procedures Referred By Antione macias Referred To Contact BR IMAGING Diagnoses Screening mammogram for breast cancer Procedures CRISTINA SCREENING SCREENING MAMMOGRAPHY BI 2-VIEW BREAST INC CAD Shorty Teresa MD [address] [place] [address] Br Imaging [address] [place] [address] Referral ID Status Reason Start Date Expiration Date Visits Requested Visits Authorized [id number] Authorized Auto-Generat ed Referral 02/08/2022 03/10/2023 1 1 Specialty Diagnoses / Procedures Referred By Contac t Referred To Contact Shorty Teresa MD [address] [place] [address] Referral ID Status Reason Start Date Expiration Date Visits Re quested Visits Authorized [id number] Closed 1 1 Specialty Diagnoses / Procedures Referred By Contac t Referred To Contact Diagnoses Hyperparathyroidism (HCC) Procedures CONSULT TO ENDOCRINE SURGERY OFFICE/OUTPATIENT [facility] 60-74 MINUTES Hayden Flanagan MD [address] [place] [address] Referral ID Status Reason Start Date Expiration Date Visits Requested Visits Authorized [id number] Pending Review PCP Requested Referral 09/13/2022 09/13/2023 1 1 Specialty Diagnoses / Procedures Referred By Contac t Referred To Contact Diagnoses Primary hyperparathyroidism (HCC) Procedures REFER TO PACC - PRE ANESTHESIA CONSULTATION CLINIC OFFICE/OUTPATIENT [facility] 60-74 MINUTES Leydi Vance MD [address] [place] [address] Referral ID Status Reason Start Date Expiration Date Visits Requested Visits Authorized [id number] Pending Review PCP Requested Referral 12/03/2022 12/03/2023 1 1 Specialty Diagnoses / Procedures Referred By Contact Referred To Contact MOLECULAR & FUNCTIONAL IMAGING Diagnoses Primary hyperparathyroidism (HCC) Hypercalcemia Procedures NM PARATHYROID W SPECT/CT PARATHYROID IMAGING W/TOMOGRAPHIC SPECT & CT Leydi Vance MD [address] [place] [address] Molecular & Functional Imaging [address] [place] [address] Referral ID Status Reason Start Date Expiration Date Visits Requested Visits Authorized [id number] Pending Review Auto-Generat ed Referral 12/03/2022 01/02/2024 1 1 Specialty Diagnoses / Procedures Referred By Contact Referred To Contact [facility] Diagnoses Primary hyperparathyroidism (HCC) Procedures ECG COMPLETE ECG ROUTINE ECG W/LEAST 12 LDS W/I&R Leydi Vance MD [address] [place] [address] [facility] [place] [address] Referral ID Status Reason Start Date Expiration Date Visits Requested Visits Authorized [id number] Pending Review Auto-Generat ed Referral 12/03/2022 12/03/2023 [...] AUTHOR AUTHOR'S ORGANIZ ATION 01/05/2023 [facility] DATE CREATED AUTHOR AUTHOR'S ORGANIZ ATION 02/15/2023 [facility] DATE CREATED AUTHOR AUTHOR'S ORGANIZ ATION 08/30/2023 [facility] Source Comments (unrecognize d section and content) In the event this informatio n is protected by the Federal Confidentiality of Alcohol and Drug Abuse Patient Records regulations: The Federal rules restrict any use of the information to criminally investigate or prosecute any alcohol or drug abuse patient.[facility] the event this information is protected by the Federal Confidentiality of Alcohol and Drug Abuse Patient Records regulations: The Federal rules restrict any use of the information to criminally investigate or prosecute any alcohol or drug abuse patient.[facility] HospitalIn the event this information is protected by the Federal Confidentiality of Alcohol and Drug Abuse Patient Records regulations: The Federal rules restrict any use of the information to criminally investigate or prosecute any alcohol or drug abuse patient.[facility] HospitalIn the event this information is protected by the Federal Confidentiality of Alcohol and Drug Abuse Patient Records regulations: The Federal rules restrict any use of the information to criminally investigate or prosecute any alcohol or drug abuse patient.[facility] HospitalIn the event this information is protected by the Federal Confidentiality of Alcohol and Drug Abuse Patient Records regulations: The Federal rules restrict any use of the information to criminally investigate or prosecute any alcohol or drug abuse patient.[facility] HospitalIn the event this information is protected by the Federal Confidentiality of Alcohol and Drug Abuse Patient Records regulations: The Federal rules restrict any use of the information to criminally investigate or prosecute any alcohol or drug abuse patient.[facility] HospitalIn the event this information is protected by the Federal Confidentiality of Alcohol and Drug Abuse Patient Records regulations: The Federal rules restrict any use of the information to criminally investigate or prosecute any alcohol or drug abuse patient.[facility] HospitalIn the event this information is protected by the Federal Confidentiality of Alcohol and Drug Abuse Patient Records regulations: The Federal rules restrict any use of the information to criminally investigate or prosecute any alcohol or drug abuse patient.[facility] HospitalIn the event this information is protected by the Federal Confidentiality of Alcohol and Drug Abuse Patient Records regulations: The Federal rules restrict any use of the information to criminally investigate or prosecute any alcohol or drug abuse patient.[facility] HospitalIn the event this information is protected by the Federal Confidentiality of Alcohol and Drug Abuse Patient Records regulations: The Federal rules restrict any use of the information to criminally investigate or prosecute any alcohol or drug abuse patient.[facility] HospitalIn the event this information is protected by the Federal Confidentiality of Alcohol and Drug Abuse Patient Records regulations: The Federal rules restrict any use of the information to criminally investigate or prosecute any alcohol or drug abuse patient.[facility] HospitalIn the event this information is protected by the Federal Confidentiality of Alcohol and Drug Abuse Patient Records regulations: The Federal rules restrict any use of the information to criminally investigate or prosecute any alcohol or drug abuse patient.[facility] HospitalIn the event this information is protected by the Federal Confidentiality of Alcohol and Drug Abuse Patient Records regulations: The Federal rules restrict any use of the information to criminally investigate or prosecute any alcohol or drug abuse patient.[facility] HospitalIn the event this information is protected by the Federal Confidentiality of Alcohol and Drug Abuse Patient Records regulations: The Federal rules restrict any use of the information to criminally investigate or prosecute any alcohol or drug abuse patient.[facility] HospitalIn the event this information is protected by the Federal Confidentiality of Alcohol and Drug Abuse Patient Records regulations: The Federal rules restrict any use of the information to criminally investigate or prosecute any alcohol or drug abuse patient.[facility] HospitalIn the event this information is protected by the Federal Confidentiality of Alcohol and Drug Abuse Patient Records regulations: The Federal rules restrict any use of the information to criminally investigate or prosecute any alcohol or drug abuse patient.[facility] HospitalIn the event this information is protected by the Federal Confidentiality of Alcohol and Drug Abuse Patient Records regulations: The Federal rules restrict any use of the information to criminally investigate or prosecute any alcohol or drug abuse patient.[facility] HospitalIn the event this information is protected by the Federal Confidentiality of Alcohol and Drug Abuse Patient Records regulations: The Federal rules restrict any use of the information to criminally investigate or prosecute any alcohol or drug abuse patient.[facility] HospitalIn the event this information is protected by the Federal Confidentiality of Alcohol and Drug Abuse Patient Records regulations: The Federal rules restrict any use of the information to criminally investigate or prosecute any alcohol or drug abuse patient.[facility] HospitalIn the event this information is protected by the Federal Confidentiality of Alcohol and Drug Abuse Patient Records regulations: The Federal rules restrict any use of the information to criminally investigate or prosecute any alcohol or drug abuse patient.[facility] HospitalIn the event this information is protected by the Federal Confidentiality of Alcohol and Drug Abuse Patient Records regulations: The Federal rules restrict any use of the information to criminally investigate or prosecute any alcohol or drug abuse patient.[facility] HospitalIn the event this information is protected by the Federal Confidentiality of Alcohol and Drug Abuse Patient Records regulations: The Federal rules restrict any use of the information to criminally investigate or prosecute any alcohol or drug abuse patient.[facility] HospitalIn the event this information is protected by the Federal Confidentiality of Alcohol and Drug Abuse Patient Records regulations: The Federal rules restrict any use of the information to criminally investigate or prosecute any alcohol or drug abuse patient.[facility] HospitalIn the event this information is protected by the Federal Confidentiality of Alcohol and Drug Abuse Patient Records regulations: The Federal rules restrict any use of the information to criminally investigate or prosecute any alcohol or drug abuse patient.[facility] HospitalIn the event this information is protected by the Federal Confidentiality of Alcohol and Drug Abuse Patient Records regulations: The Federal rules restrict any use of the information to criminally investigate or prosecute any alcohol or drug abuse patient.[facility] HospitalIn the event this information is protected by the Federal Confidentiality of Alcohol and Drug Abuse Patient Records regulations: The Federal rules restrict any use of the information to criminally investigate or prosecute any alcohol or drug abuse patient.[facility] HospitalIn the event this information is protected by the Federal Confidentiality of Alcohol and Drug Abuse Patient Records regulations: The Federal rules restrict any use of the information to criminally investigate or prosecute any alcohol or drug abuse patient.[facility] HospitalIn the event this information is protected by the Federal Confidentiality of Alcohol and Drug Abuse Patient Records regulations: The Federal rules restrict any use of the information to criminally investigate or prosecute any alcohol or drug abuse patient.[facility] HospitalIn the event this information is protected by the Federal Confidentiality of Alcohol and Drug Abuse Patient Records regulations: The Federal rules restrict any use of the information to criminally investigate or prosecute any alcohol or drug abuse patient.[facility] HospitalIn the event this information is protected by the Federal Confidentiality of Alcohol and Drug Abuse Patient Records regulations: The Federal rules restrict any use of the information to criminally investigate or prosecute any alcohol or drug abuse patient.[facility] HospitalIn the event this information is protected by the Federal Confidentiality of Alcohol and Drug Abuse Patient Records regulations: The Federal rules restrict any use of the information to criminally investigate or prosecute any alcohol or drug abuse patient.[facility] HospitalIn the event this information is protected by the Federal Confidentiality of Alcohol and Drug Abuse Patient Records regulations: The Federal rules restrict any use of the information to criminally investigate or prosecute any alcohol or drug abuse patient.[facility] HospitalIn the event this information is protected by the Federal Confidentiality of Alcohol and Drug Abuse Patient Records regulations: The Federal rules restrict any use of the information to criminally investigate or prosecute any alcohol or drug abuse patient.[facility] HospitalIn the event this information is protected by the Federal Confidentiality of Alcohol and Drug Abuse Patient Records regulations: The Federal rules restrict any use of the information to criminally investigate or prosecute any alcohol or drug abuse patient.[facility] HospitalIn the event this information is protected by the Federal Confidentiality of Alcohol and Drug Abuse Patient Records regulations: The Federal rules restrict any use of the information to criminally investigate or prosecute any alcohol or drug abuse patient.[facility] HospitalIn the event this information is protected by the Federal Confidentiality of Alcohol and Drug Abuse Patient Records regulations: The Federal rules restrict any use of the information to criminally investigate or prosecute any alcohol or drug abuse patient.[facility] HospitalIn the event this information is protected by the Federal Confidentiality of Alcohol and Drug Abuse Patient Records regulations: The Federal rules restrict any use of the information to criminally investigate or prosecute any alcohol or drug abuse patient.[facility] HospitalIn the event this information is protected by the Federal Confidentiality of Alcohol and Drug Abuse Patient Records regulations: The Federal rules restrict any use of the information to criminally investigate or prosecute any alcohol or drug abuse patient.[facility] HospitalIn the event this information is protected by the Federal Confidentiality of Alcohol and Drug Abuse Patient Records regulations: The Federal rules restrict any use of the information to criminally investigate or prosecute any alcohol or drug abuse patient.[facility] HospitalIn the event this information is protected by the Federal Confidentiality of Alcohol and Drug Abuse Patient Records regulations: The Federal rules restrict any use of the information to criminally investigate or prosecute any alcohol or drug abuse patient.[facility] HospitalIn the event this information is protected by the Federal Confidentiality of Alcohol and Drug Abuse Patient Records regulations: The Federal rules restrict any use of the information to criminally investigate or prosecute any alcohol or drug abuse patient.[facility] HospitalIn the event this information is protected by the Federal Confidentiality of Alcohol and Drug Abuse Patient Records regulations: The Federal rules restrict any use of the information to criminally investigate or prosecute any alcohol or drug abuse patient.[facility] HospitalIn the event this information is protected by the Federal Confidentiality of Alcohol and Drug Abuse Patient Records regulations: The Federal rules restrict any use of the information to criminally investigate or prosecute any alcohol or drug abuse patient.[facility] HospitalIn the event this information is protected by the Federal Confidentiality of Alcohol and Drug Abuse Patient Records regulations: The Federal rules restrict any use of the information to criminally investigate or prosecute any alcohol or drug abuse patient.[facility] HospitalIn the event this information is protected by the Federal Confidentiality of Alcohol and Drug Abuse Patient Records regulations: The Federal rules restrict any use of the information to criminally investigate or prosecute any alcohol or drug abuse patient.[facility] HospitalIn the event this information is protected by the Federal Confidentiality of Alcohol and Drug Abuse Patient Records regulations: The Federal rules restrict any use of the information to criminally investigate or prosecute any alcohol or drug abuse patient.[facility] HospitalIn the event this information is protected by the Federal Confidentiality of Alcohol and Drug Abuse Patient Records regulations: The Federal rules restrict any use of the information to criminally investigate or prosecute any alcohol or drug abuse patient.[facility] HospitalIn the event this information is protected by the Federal Confidentiality of Alcohol and Drug Abuse Patient Records regulations: The Federal rules restrict any use of the information to criminally investigate or prosecute any alcohol or drug abuse patient.[facility] HospitalIn the event this information is protected by the Federal Confidentiality of Alcohol and Drug Abuse Patient Records regulations: The Federal rules restrict any use of the information to criminally investigate or prosecute any alcohol or drug abuse patient.[facility] HospitalIn the event this information is protected by the Federal Confidentiality of Alcohol and Drug Abuse Patient Records regulations: The Federal rules restrict any use of the information to criminally investigate or prosecute any alcohol or drug abuse patient.[facility] HospitalIn the event this information is protected by the Federal Confidentiality of Alcohol and Drug Abuse Patient Records regulations: The Federal rules restrict any use of the information to criminally investigate or prosecute any alcohol or drug abuse patient.[facility] HospitalIn the event this information is protected by the Federal Confidentiality of Alcohol and Drug Abuse Patient Records regulations: The Federal rules restrict any use of the information to criminally investigate or prosecute any alcohol or drug abuse patient.[facility] HospitalIn the event this information is protected by the Federal Confidentiality of Alcohol and Drug Abuse Patient Records regulations: The Federal rules restrict any use of the information to criminally investigate or prosecute any alcohol or drug abuse patient.[facility] HospitalIn the event this information is protected by the Federal Confidentiality of Alcohol and Drug Abuse Patient Records regulations: The Federal rules restrict any use of the information to criminally investigate or prosecute any alcohol or drug abuse patient.[facility] HospitalIn the event this information is protected by the Federal Confidentiality of Alcohol and Drug Abuse Patient Records regulations: The Federal rules restrict any use of the information to criminally investigate or prosecute any alcohol or drug abuse patient.[facility] Reason for Visit (unrecogniz ed section and content) Specialty Diagnoses / Procedures Referred By Antione macias Referred To Contact Family Practice / FAMILY MEDICINE Diagnoses Open Celulitis blister/Possible UTI Procedures 4C EST Self Arnold Mcconnell MD [address] [place] [address] Referral ID Status Reason Start Date Expiration Date V isits Requested Visits Authorized [id number] Closed Financial Clearance Required - OON Payor [...] Follow Up 6 month 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 Reason Comments Consult UTI Reason Comments Follow Up Reason Comments Referral Request Thyroid Surgeon Reason Comments orders for medication infusion Reason Comments Non-Chemotherapy Treatment Specialty Diagnoses / Procedures Referred By Antione macias Referred To Contact Diagnoses Other osteoporosis, unspecified pathological fracture presence Procedures INJECTION, ZOLEDRONIC ACID, 1 MG Hayden Flanagan MD [address] [place] [address] [facility] [address] [place] [address] Referral ID Status Reason Start Date Expiration Date V isits Requested Visits Authorized [id number] Authorized 09/13/2022 09/14/2023 1 1 Reason Onset Date Comments Refill Request 09/21/2022 Reason Comments Follow Up 1 week on left leg Reason Comments Patient Update Reason Comments Release Of Medical Records Reason Comments Appointment Reason Comments Thyroid Problem Specialty Diagnoses / Procedures Referred By Antione t Referred To Contact Diagnoses Hyperparathyroidism (HCC) Procedures CONSULT TO ENDOCRINE SURGERY OFFICE/OUTPATIENT NEW HIGH MDM 60-74 MINUTES Hayden Flanagan MD [address] [place] [address] Referral ID Status Reason Start Date Expiration Date V isits Requested Visits Authorized [id number] Closed PCP Requested Referral 09/13/2022 09/13/2023 1 1 Reason Comments preop pacc / OR MM 02/08/23 Parathyroide ctomy Reason Onset Date Comments Refill Request 12/19/2022 Reason Comments New Knee Pain Reason Comments Anesthesia Consult Reason Comments Mammogram Order Reason Comments Follow Up Reason Comments Follow Up 4 month follow up Care Teams (unrecognized sec tion and content) Ink Blender Relationship Specialty Start Date End Date Shorty Teresa MD [address] [place] [address] PCP - General Family Practice 03/27/17 Ink Blender Relationship Specialty Start Date End Date Shorty Teresa MD [address] [place] [address] PCP - General Family Practice 03/27/17 Ink Blender Relationship Specialty Start Date End Date Shorty Teresa MD [address] [place], [place] [id number] [phone] PCP - General Family Practice 03/27/17 Ink Blender Relationship Specialty Start Date End Date Shorty Teresa MD [address] [place], [place] [id number] [phone] PCP - General Family Practice 03/27/17 Ink Blender Relationship Specialty Start Date End Date Shorty Teresa MD [address] [facility] [place] [address] PCP - General Family Practice 03/27/17 Ink Blender Relationship Specialty Start Date End Date Shorty Teresa MD [address] [facility] [place] [address] PCP - General Family Practice 03/27/17 Ink Blender Relationship Specialty Start Date End Date Shorty Teresa MD [address] [facility] [place] [address] PCP - General Family Practice 03/27/17 Ink Blender Relationship Specialty Start Date End Date Shorty Teresa MD [address] [facility] [place] [address] PCP - General Family Medicine 03/27/17 Ink Blender Relationship Specialty Start Date End Date Shorty Teresa MD [address] [facility] [place] [address] PCP - General Family Medicine 03/27/17 Ink Blender Relationship Specialty Start Date End Date Shorty Teresa MD [address] [facility] [place] [address] PCP - General Family Medicine 03/27/17 Ink Blender Relationship Specialty Start Date End Date Shorty Teresa MD [address] [facility] [place] [address] PCP - General Family Medicine 03/27/17 Ink Blender Relationship Specialty Start Date End Date Shorty Teresa MD [address] [facility] [place] [address] PCP - General Family Medicine 03/27/17 Ink Blender Relationship Specialty Start Date End Date Shorty Treesa MD [address] [facility] [place] [address] PCP - General Family Medicine 03/27/17 Ink Blender Relationship Specialty Start Date End Date Shorty Teresa MD [address] [facility] [place] [address] PCP - General Family Medicine 03/27/17 Ink Blender Relationship Specialty Start Date End Date Shorty Teresa MD [address] [facility] [place] [address] PCP - General Family Medicine 03/27/17 Ink Blender Relationship Specialty Start Date End Date Shorty Teresa MD [address] [facility] [place] [address] PCP - General Family Medicine 03/27/17 Ink Blender Relationship Specialty Start Date End Date Shorty Teresa MD [address] [facility] [place] [address] PCP - General Family Medicine 03/27/17 Ink Blender Relationship Specialty Start Date End Date Shorty Teresa MD [address] [facility] [place] [address] PCP - General Family Medicine 03/27/17 Ink Blender Relationship Specialty Start Date End Date Shorty Teresa MD [address] [facility] [place] [address] PCP - General Family Medicine 03/27/17 Ink Blender Relationship Specialty Start Date End Date Shorty Teresa MD [address] [facility] [place] [address] PCP - General Family Medicine 03/27/17 Ink Blender Relationship Specialty Start Date End Date Shorty Teresa MD [address] [facility] [place] [address] PCP - General Family Medicine 03/27/17 Ink Blender Relationship Specialty Start Date End Date Shorty Teresa MD [address] [facility] [place] [address] PCP - General Family Medicine 03/27/17 Ink Blender Relationship Specialty Start Date End Date Shorty Teresa MD [address] [facility] [place] [address] PCP - General Family Medicine 03/27/17 Ink Blender Relationship Specialty Start Date End Date Shorty Teresa MD [address] [facility] [place] [address] PCP - General Family Medicine 03/27/17 Ink Blender Relationship Specialty Start Date End Date Shorty Teresa MD [address] [facility] [place] [address] PCP - General Family Medicine 03/27/17 Ink Blender Relationship Specialty Start Date End Date Shorty Teresa MD [address] [facility] [place] [address] PCP - General Family Medicine 03/27/17 Ink Blender Relationship Specialty Start Date End Date Shorty Teresa MD [address] [facility] [place] [address] PCP - General Family Medicine 03/27/17 Ink Blender Relationship Specialty Start Date End Date Shorty Teresa MD [address] [facility] [place] [address] PCP - General Family Medicine 03/27/17 Ink Blender Relationship Specialty Start Date End Date Shorty Teresa MD [address] [facility] [place] [address] PCP - General Family Medicine 03/27/17 Ink Blender Relationship Specialty Start Date End Date Shorty Teresa MD [address] [facility] [place] [address] PCP - General Family Medicine 03/27/17 Ink Blender Relationship Specialty Start Date End Date Shorty Teresa MD [address] [facility] [place] [address] PCP - General Family Medicine 03/27/17 Ink Blender Relationship Specialty Start Date End Date Shorty Teresa MD [address] [facility] [place] [address] PCP - General Family Medicine 03/27/17 Ink Blender Relationship Specialty Start Date End Date Shorty Teresa MD [address] [facility] [place] [address] PCP - General Family Medicine 03/27/17 Ink Blender Relationship Specialty Start Date End Date Shorty Teresa MD [address] [facility] [place] [address] PCP - General Family Medicine 03/27/17 Ink Blender Relationship Specialty Start Date End Date Shorty Teresa MD [address] [facility] [place] [address] PCP - General Family Medicine 03/27/17 Ink Blender Relationship Specialty Start Date End Date Shorty Teresa MD [address] [facility] [place] [address] PCP - General Family Medicine 03/27/17 Ink Blender Relationship Specialty Start Date End Date Shorty Teresa MD [address] [facility] [place] [address] PCP - General Family Medicine 03/27/17 Ink Blender Relationship Specialty Start Date End Date Shorty Teresa MD [address] [place], [place] [address] PCP - General [facility] 03/27/17 Ink Blender Relationship Specialty Start Date End Date Shorty Teresa MD [address] [place], [place] [address] PCP - General Family [facility] 03/27/17 FOR RECORDS PERTAINING TO PATIENTS WHO [...] BE BASED ON THE PRIMARY CLINICAL RECORDS. [facility]. provides no warranty or guarantee of the accuracy or completeness of information in this document.
== END | disposition home or self-care (01) ==
PROVIDERS: PCP Family Medicine; Referring Provider Anesthesiology Pain Medicine; Visit Provider Anesthesiology Pain Medicine
DX: F11.20 Opioid dependence, uncomplicated (principal)
CPT/HCPCS: 80307

== ENCOUNTER 2024-02-27 14:00 | Outpatient (RCR) | payer MEDICARE, MEDICAID, SELFPAY ==
--- NOTE | 2024-01-27 14:04 | HP.PTEVAL ---
Patient's Visit Information Visit Information Visit Information: AMINATA LEE is a 73 year old F referred to Physical Therapy by Dr. Miguel Teresa MD with a diagnosis of UNSTEADY GAIT WHEN WALKING ,AT HIGH RISK FOR FALLS. Date of Evaluation: 01/27/24 Physical Therapist: Alen Abbott, PT, Cert MDT, OCS Visit Plan Frequency: 2x /Week Duration: 4 Weeks Plan: PT INTERVENTION GAIT TRAINING ,BALANCE PROGRAM ,BEL STRENGTHENING LLE ,FUNCTIONAL STRENGTHENING AND ENDURANCE PROGRAM Subjective Subjective: This 73 y/o female presents physical therapy with unsteady gait and high risk falls. 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 Patient had extensive rehab . Most recently patient patient has exhibited decreased gait and episode of falling and last fall last week. Patient has had some falls past 2 twice past [address] iqbal PT. Patient lives alone . Ranch home with ramp. Bathroom setup with walk-in shower with seat. Patient is able to bath dress and bath self. Patient does cooking. Patient has QUILL SKINNER 2 x /week 3 hours /day. Stair lift to basement. Patient denies paresthesia/tingling. Patient sleeping good. Patient driving . 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 Patient condition affects QOL and function . Patient is to walk better and decrease falls. SOCIAL: single Pain Right Knee: Pain Intensity (Out of 10): 4 Pain Intensity Range: 10 Objective Objective: POSTURE: posterior pelvic tilt ,standing hips/knees flexed trunk flexed forward NEURO: denies paresthesia/tingling ,reflexes L3-4.;4-5,L5-S1 1/3 ,left UE extended with hypertonicity GAIT: ambulates with QC with with 2 point slow eber PALAPTION: unremarkable MMT: left quad/hams left 3+/5 ,right 4/5 ,hip flexion left 3/5 ,hip abd 3-/5 ,right 4-/5 ,ankle left 3/5 BALANCE: fair+ with Balance/Special Test Scores CATSIB Score (Max score 120 seconds): 32 Lower Extremity Functional Score: 17 Goals Goal 1:: Patient to be I with HEP for balance and strengthening Goal Time Frame: 4-6 Weeks Goal 2:: Patient to improve strength hams/quads 4-/5 and hip 3+/5 to improve gait Goal Time Frame: 4-6 Weeks Goal 3:: Patient to improve LFES score by 5 points to improve QOL and function Goal Time Frame: 4-6 Weeks Goal 4:: Patient to demonstrate 40%improvement with increase function and gait /balance Goal Time Frame: 4-6 Weeks Goal 5:: Patient to improve CATSIBE by 5 points to improve QOL and function Goal Time Frame: 4-6 Weeks Rehabilitation Potential Physical Therapy Diagnosis: This patient has CVA 1982 with impairments with decrease balance ,gait and weakness thus benefit from skilled PT Rehabilitation Potential: Good Anticipated Interventions Patient/Client Instruction: Educate patient on: Condition and Plan of Care For the Purpose of:: To decrease pain, To increase ROM, To improve muscle performance and motor function, To improve ability to perform ADL's, To increase tolerance to activity/condition/position, To improve ability of physical actions for home/community/work/leisure, To improve gait and locomotor functions, To improve health of tissue, To decrease soft tissue restriction, To increase flexibility/ROM, To improve endurance, To improve balance, To prevent re-injury and To improve tolerance to ADL's Therapeutic Exercise to Include: Strength training, Endurance training, Balance training, Flexibilty training, Gait and locomotor training and Active ROM Comment: QUADS/HAMS/HIP LLE For the Purpose of:: To increase ROM, To improve muscle performance and motor function and To improve ability to perform ADL's Text: Thank you for the opportunity to evaluate your patient. For Medicare and Medicare HMO plans, please review the plan of care and approve it. It will need to be FAXED BACK to us at [phone] for Medicare purposes. For Medicare only, by signing this I certify the plan of care. Please let me know if there are questions or concerns regarding this plan of care. Physician Signature: Date:
--- NOTE | 2024-02-27 14:24 | HP.PTDCSUM ---
Discharge Summary D/C summary: It has been my pleasure to treat AMINATA LEE referred by Dr. Miguel Teresa MD, with the diagnosis of UNSTEADY GAIT WHEN WALKING ,AT HIGH RISK FOR FALLS for a total of 9 visit(s). Discharge Date: 02/27/24 Please see the following information for a summary of their discharge status. Subjective Subjective: Doing okay BALANCE is doing better Pain Right Knee: Pain Intensity (Out of 10): 0 Overall Improvement % Improvement: 40 Objective Objective/Function: POSTURE: posterior pelvic tilt ,standing hips/knees flexed trunk flexed forward NEURO: denies paresthesia/tingling ,reflexes L3-4.;4-5,L5-S1 1/3 ,left UE extended with hypertonicity GAIT: ambulates with QC with with 2 point slow eber PALAPTION: unremarkable MMT: left quad/hams left 3+/5 ,right 4/5 ,hip flexion left 3/5 ,hip abd 3-/5 ,right 4-/5 ,ankle left 3/5 BALANCE: fair+ with QC Goals Goal 1:: Patient to be I with HEP for balance and strengthening Goal Progress: Goal Met Goal 2:: Patient to improve strength hams/quads 4-/5 and hip 3+/5 to improve gait Goal Progress: Goal Met Goal 3:: Patient to improve LFES score by 5 points to improve QOL and function Goal Progress: Progressing Goal 4:: Patient to demonstrate 40%improvement with increase function and gait /balance Goal Progress: Goal Met Goal 5:: Patient to improve CATSIBE by 5 points to improve QOL and function Goal Progress: Goal Met Plan Plan: D/C D/C Information Discharge Comments: D/C TO HEP d/c sentence: If there are questions or concerns regarding this patient's physical therapy, please feel free to call me at [phone]. Thank you for the referral of this patient. Sincerely, Alen Abbott, PT, Cert MDT, OCS Balance/Gait/Functional tests Balance/Special Test Scores CATSIB Score (Max score 120 seconds): 72 Lower Extremity Functional Score: 25 Improvement % Improvement: 40
== END 2024-02-27 19:00 | disposition home or self-care (01) ==
LOC: PT 14:00
PROVIDERS: PCP Family Medicine; Referring Provider Family Medicine; Visit Provider Family Medicine
DX: R26.81 Unsteadiness on feet (principal); Z91.81 History of falling
CPT/HCPCS: 97110; 97162; 97530

== ENCOUNTER → 2024-05-13 | Outpatient (CLI) | payer MEDICARE, MEDICAID, SELFPAY ==
[2024-05-13 18:16] LABS: Amphetamine Urine VISTA NEGATIVE (<1000 ng/mL); Barbiturate Urine VISTA NEGATIVE (< 200 ng/mL); Benzodiazepine Urine VISTA NEGATIVE (< 200 ng/mL); Cocaine Urine VISTA NEGATIVE (< 300 ng/mL); Ecstacy Urine VISTA NEGATIVE (< 500 ng/mL); Methadone Urine VISTA NEGATIVE (< 300 ng/mL); PCP Urine VISTA NEGATIVE (< 25 ng/mL); THC Urine VISTA NEGATIVE (< 50 ng/mL); Vista UDS pH Range 5
--- OUTSIDE RECORDS SUMMARY | 2024-05-13 19:31 | XMS RPT_ITS | CCD ---
[facility] Care Team Providers Care Dental Floss Packer Name Role Phone Shorty Teresa MD Primary Care Provider PROVIDER, UNKNOWN Referring Unavailable SHORTY TERESA Primary Care Unavailab Shorty Mason MD Primary Care Provider LEYDI VANCE Admitting Unavailable LEYDI VANCE Attending Unavailable SHORTY TERESA Primary Care Unavailab SHORTY Mason Primary Care Unavailab emerson VANCE, LEYDI Referring Unavailable SHORTY TERESA Primary Care Unavailab emerson VANCE, LEYDI Referring Unavailable SHORTY TERESA Primary Care Unavailab Shorty Mason MD Primary Care Provider SHORTY TERESA Primary Care Unavailab SHORTY Mason Attending Unavailab SHORTY Mason Primary Care Unavailab SHORTY Mason Referring Unavailab SHORTY Mason Primary Care Unavailab SHORTY Mason Attending Unavailab ARNOL Rodriguez Referring Unavailable ARNOL JONAS Attending Unavailable SHORTY TERESA Primary Care Unavailab SHORTY Mason Primary Care Unavailab SHORTY Mason Referring Unavailab SHORTY Mason Primary Care Unavailab KASSANDRA Sanchez Attending Unavailable SHORTY TERESA Primary Care Unavailab SHORTY Mason Attending Unavailab SHORTY Mason Primary Care Unavailab emerson VANCE LEYDI Referring Unavailable SHORTY TERESA Attending Unavailab SHORTY Mason Primary Care Unavailab HAYDEN Solares Referring Unavailable SHORTY TERESA Primary Care UnavailSHORTY Michelle Primary Care Unavailab norman PODKASSANDRA MCKEON Attending HAYDEN Marquez Attending Unavailable SHORTY TERESA Primary Care UnavailSHROTY Michelle Referring Unavailab SHORTY Mason Primary Care Unavailab SHORTY Mason Referring Unavailab ARNOL Rodriguez Referring Unavailable SHORTY TERESA Primary Care UnavailARNOL Robin Attending Unavailable HAYDEN FLANAGAN Attending Unavailable SHORTY TERESA Primary Care Unavailab le Allergies Allergy Classification Reported Allergen(s) Allergy Type Date of Onset Reaction(s) Facility Nitroimidazoles (antibiotic) (2 sources) metroNIDAZOLE Drug Allergy 03-26-20 GI Upset [facility] (20 sources) metroNIDAZOLE; Translations: [METRONIDAZOLE] Drug Allergy 03-26-20 GI Upset [facility] (6 sources) Thiazides; Translations: [THIAZIDES] Drug Intolerance 08-14-19 16 Other: See Comments [facility] (20 sources) Thiazides Drug Intolerance 08-14-19 16 Other: See Comments [facility] Medications Current Medications Medication Drug Class(es) Dates Sig (Normalized) Sig (Original) acetaminophen 325 mg / HYDROcodone bitartrate 5 mg oral tablet (20 sources) Opioid Agonist Start: 02-12-2019 take 3 tablets by mouth once as needed HYDROcodone-acetam inophen (NORCO) 5-325 mg per tablet Take 3 tablets by mouth as needed. 0 02/12/2019 Active Comment on above: Take 3 tablets by [facility] as needed. Administered Medications Medication Order MAR Action Action Date Dose Rate Site tuberculin skin test, unspecified formulation Given 08/01/2023 (1 source) Administered Medications Medication Order MAR Action Action Date Dose Rate Site tuberculin skin test, unspecified formulation Given 08/01/2023 amitriptyline hydrochloride 75 mg oral tablet (20 sources) Tricyclic Antidepressant Start: 2022 End: 03-20-2024 take 1 tablet by mouth once daily at bedtime amitriptyline (ELAVIL) 75 mg tablet Take 1 tablet by mouth daily at bedtime. 90 tablet 1 03/20/2024 Active Start: 03-24-2021 End: 09-19-2021 take 1 tablet by mouth once daily at bedtime amitriptyline (ELAVIL) 75 mg tablet Take 1 tablet by mouth daily at bedtime. 90 tablet 1 03/24/2021 09/19/2021 Discontinued Comment on above: Take 1 tablet by [facility] daily at bedtime. calcium carbonate 1250 mg / cholecalciferol 200 unt oral tablet (20 sources) Vitamin D Start: 02-09-20 take 1 tablet by mouth three times daily calcium-carbonate- vitamin D3 500 mg-5 mcg (200 unit) per tablet Take 1 tablet by mouth three times daily. 90 tablet 02/08/2023 Active Comment on above: Take 1 tablet by [facility] three times daily. cephalexin 500 mg oral capsule (3 sources) Cephalosporin Antibacterial Start: 07-26-19 End: 08-02-19 take 1 capsule by mouth twice daily cephALEXin (KEFLEX) 500 mg capsule Indications: Urinary frequency Take 1 capsule by mouth twice daily for 7 days. 14 capsule 0 07/26/2022 08/02/2022 Active Start: 07-09-2022 End: 07-16-2022 take 1 capsule by mouth twice daily cephALEXin (KEFLEX) 500 mg capsule Take 1 capsule by mouth twice daily for 7 days. 14 capsule 0 07/09/2022 07/16/2022 Active Comment on above: Take 1 capsule by mo [facility] twice daily for 7 days. cholecalciferol 0.05 mg oral tablet (20 sources) Vitamin D take 1 tablet by mouth once daily cholecalciferol (VITAMIN D3) 50 mcg (2,000 unit) tablet Take 2,000 Units by mouth once daily. Active Comment on above: Take 2,000 Units by mouth once daily. COMPRESSION HOSIERY KNEE LENGTH, AD, 30-40 [facility] (17 sources) Start: 04-09-20 End: 04-09-20 COMPRESSION HOSIERY KNEE LENGTH, AD, 30-40 [facility] Indications: Leg swelling , Venous incompetence once daily. 1 Each 04/09/2024 04/09/2025 Active Start: 08-15-2023 End: 04-09-2024 COMPRESSION HOSIERY KNEE SUPA GTH, AD, 30-40 [facility] Indications: Leg swelling once daily. 2 Each 08/15/2023 04/09/2024 Discontinued Start: 08-15-2023 End: 08-14-2024 COMPRESSION HOSIERY KNEE SUPA GTH, AD, 30-40 [facility] Indications: Leg swelling once daily. 2 Each 08/15/2023 08/14/2024 Active Start: 08-15-2023 End: 08-14-2024 COMPRESSION HOSIERY KNEE SUPA GTH, AD, 30-40 [facility] Indications: Leg swelling once daily. 2 Each 0 08/15/2023 08/14/2024 Active Start: 06-19-2023 End: 08-15-2023 COMPRESSION HOSIERY KNEE SUPA GTH, AD, 30-40 [facility] Indications: Leg swelling once daily. 2 Each 06/19/2023 08/15/2023 Discontinued Start: 06-19-2023 End: 06-18-2024 COMPRESSION HOSIERY KNEE SUPA GTH, AD, 30-40 [facility] Indications: Leg swelling once daily. 2 Each 0 06/19/2023 06/18/2024 Active Comment on above: once daily. 24 hr dilTIAZem hydrochloride 300 mg extended release oral capsule (20 sources) Calcium Channel Allyssa Start: 2020 End: 2023 take 1 capsule by mouth once daily dilTIAZem CD (CARTIA XT) 300 mg 24 hr capsule Take 1 capsule by mouth once daily. 90 capsule 3 12/23/2023 Active Comment on above: Take 1 capsule by mo [facility] once daily. famotidine 20 mg oral tablet (12 sources) Histamine-2 Receptor Antagonist Start: 2023 End: 2023 take 1 tablet by mouth every twenty-four hours as needed for gastroesophageal reflux disease and gastroesophageal reflux disease famotidine (PEPCID) 20 mg tablet Indications: Gastroesophageal reflux disease, unspecified whether esophagitis present Take 1 tablet by mouth at bedtime as needed. 90 tablet 1 09/16/2023 03/14/2024 Active Start: 03-24-2021 End: 06-22-2021 take 1 tablet by mouth twice daily famotidine (PEPCID) 20 mg tablet Indications: Esophageal dysphagia , Gastroesophageal reflux disease, unspecified whether esophagitis present Take 1 tablet by mouth twice daily. 180 tablet 1 03/24/2021 06/22/2021 Comment on above: Take 1 tablet by [facility] at bedtime as needed. furosemide 40 mg oral tablet (20 sources) Loop Diuretic Start: 08-07-2022 End: 01-13-2024 take 1 tablet by mouth once daily furosemide (LASIX) 40 mg tablet Take 1 tablet by mouth once daily. 90 tablet 1 01/14/2024 Active Start: 03-24-2021 End: 09-19-2021 take 1 tablet by mouth once daily furosemide (LASIX) 40 mg tablet Take 1 tablet by mouth once daily. 90 tablet 1 03/24/2021 09/19/2021 Discontinued Comment on above: Take 1 tablet by [facility] once daily. gabapentin 300 mg oral capsule (20 sources) Anti-epileptic Agent Start: 02-12-2023 End: 06-18-2024 take 1 capsule by mouth once daily gabapentin (NEURONTIN) 300 mg capsule Take 1 capsule by mouth once daily for 90 days. 90 capsule 03/20/2024 06/18/2024 Active Start: 09-19-2021 End: 03-19-2023 take 1 capsule by mouth twice daily gabapentin (NEURONTIN) 300 mg capsule Take 1 capsule by mouth twice daily for 90 days. 180 capsule 12/19/2022 02/12/2023 Discontinued Start: 03-24-2021 End: 06-21-2021 take 1 capsule by mouth twice daily gabapentin (NEURONTIN) 300 mg capsule Take 1 capsule by mouth twice daily for 90 days. 180 capsule 03/24/2021 06/21/2021 Discontinued Comment on above: Take 1 capsule by [facility] twice daily for 90 days. Take 1 capsule by [facility] once daily for 90 days. multivitamin tablet (20 sources) take 1 tablet by mouth once daily multivitamin tablet Take 1 tablet by mouth once daily. Active take 1 tablet by mouth once dario y multivitamin tablet Take 1 tablet by mouth once daily. 0 Active Comment on above: Take 1 tablet by [facility] once daily. mupirocin 0.02 mg/mg topical ointment (3 sources) RNA Synthetase Inhibitor Antibacterial Start: 3 End: 3 mupirocin (BACTROBAN) 2 % ointment Indications: Skin tear of left lower leg without complication, initial encounter Apply to affected area twice daily for 10 days. 30 g 1 11/06/2022 11/16/2022 Active Comment on above: Apply to affected ar ea twice daily for 10 days. omeprazole 40 mg delayed release oral capsule (20 sources) Proton Pump Inhibitor Start: End: take 1 capsule by mouth once daily omeprazole (PRILOSEC) 40 mg capsule Take 1 capsule by mouth once daily. 90 capsule 1 03/20/2024 Active Start: 08-28-2021 End: 09-21-2022 take 1 capsule by mouth once daily omeprazole (PRILOSEC) 40 mg capsule Take 1 capsule by mouth once daily. 30 capsule 5 04/03/2022 09/21/2022 Discontinued Comment on above: Take 1 capsule by [facility] once daily. potassium chloride 1.33 meq/ml oral solution (20 sources) Start: 08-12-2023 End: 06-18-2024 take 30 mL by mouth once daily potassium chloride 20 mEq/15 mL solution Take 30 mL by mouth once daily. 900 mL 2 03/20/2024 06/18/2024 Active Start: 2022 End: 08-12-2023 take 1 tablet by mouth once daily potassium chloride (K-TAB) 10 mEq tablet Take 1 tablet by mouth once daily. 90 tablet 3 2022 03/20/2023 Discontinued Start: 03-24-2021 End: 09-19-2021 take 1 tablet by mouth once daily potassium chloride (K-TAB) 10 mEq tablet Take 1 tablet by mouth once daily. 90 tablet 1 03/24/2021 09/19/2021 Discontinued Comment on above: Take 1 tablet by [facility] once daily. Take 30 mL by mouth once daily. 24 hr tolterodine tartrate 4 mg extended release oral capsule (20 sources) Cholinergic Muscarinic Antagonist Start: 022 End: take 1 capsule by mouth once daily tolterodine ER (DETROL LA) 4 mg 24 hr capsule Take 1 capsule by mouth once daily. 90 capsule 1 03/20/2024 Active Comment on above: Take 1 capsule by [facility] once daily. 100 ml zoledronic acid 0.05 mg/ml injection (20 sources) Bisphosphonate Start: 023 End: 024 inject 100 mL intravenously once zoledronic acid (RECLAST) 5 mg/100 mL PREMIX piggyback Indications: Other osteoporosis, unspecified pathological fracture presence Inject 100 mL intravenously one time only for 1 dose. 100 mL 04/14/2024 Active Start: 09-12-2022 End: 10-12-2022 zoledronic acid 5 mg PREMIX piggyback (RECLAST) Start: 03-13-2022 End: 04-12-2022 zoledronic acid 5 mg PREMIX piggyback (RECLAST) Start: 02-10-2021 End: 03-13-2022 inject 100 mL intravenously once zoledronic acid (RECL AST) 5 mg/100 mL pgbk PREMIX piggyback Indications: Osteopenia, unspecified location Inject 100 mL intravenously one time only for 1 dose. 100 mL 02/10/2021 03/13/2022 Discontinued Comment on above: Inject 100 mL intrav enously one time only for 1 dose. Completed/Discontinued Medications Medication Drug Class(es) Dates Sig (Normalized) Sig (Original) acetaminophen 500 mg oral tablet (14 sources) Start: 02-08-2023 End: 01-09-2024 take 1 tablet by mouth every six hours as needed acetaminophen (TYLENOL) 500 mg tablet Take 1 tablet by mouth every 6 hours as needed for pain. 50 tablet 02/08/2023 01/09/2024 Discontinued (Course of therapy completed) Comment on above: Take 1 tablet by [facility] every 6 hours as needed for pain. [id number] 200 actuat albuterol 0.09 mg/actuat metered dose inhaler (2 sources) beta2-Adrenergic Agonist Start: 10-07-2020 End: 10-30-2021 take 2 puff(s) by inhalation every four hours as needed albuterol HFA (PROVENTIL HFA, VENTOLIN HFA) 90 mcg/actuation inhaler Inhale 2 Puffs as instructed every 4 hours as needed. 8 g 10/07/2020 10/30/2021 Discontinued amoxicillin 875 mg / clavulanate 125 mg oral tablet (1 source) Penicillin-class Antibacterial Start: 04-19-2021 End: 04-29-2021 take 1 tablet by mouth twice daily amoxicillin-clavula kemar acid (AUGMENTIN) 875-125 mg per tablet Indications: Dog scratch Take 1 tablet by mouth twice daily for 10 days. 20 tablet 04/19/2021 04/29/2021 atorvastatin 10 mg oral tablet (20 sources) HMG-CoA Reductase Inhibitor Start: 03-24-2021 End: 03-20-2024 take 1 tablet by mouth once daily atorvastatin (LIPITOR) 10 mg tablet Indications: Mixed hyperlipidemia Take 1 tablet by mouth once daily. Discontinue simvastatin 90 tablet 1 03/20/2024 Active Comment on above: Take 1 tablet by [facility] once daily. Discontinue simvastatin benzonatate 100 mg oral capsule (2 sources) Non-narcotic Antitussive Start: 07-23-2023 End: 08-02-2023 take 1 capsule by mouth three times daily as needed benzonatate (TESSALON PERLE) 100 mg capsule Indications: Suspected COVID-19 virus infection Take 1 capsule by mouth three times a day as needed for up to 10 days. 30 capsule 07/23/2023 08/02/2023 Start: 04-19-2021 End: 04-29-2021 take 1 capsule by mouth every eight hours as needed benzonatate (TESSALON PERLE) 100 mg capsule Take 1 capsule by mouth three times daily as needed for up to 10 days. 30 capsule 04/19/2021 04/29/2021 betamethasone 3 mg/ml / betamethasone acetate 3 mg/ml injectable suspension (1 source) Corticosteroid Start: 01-03-2023 End: 01-03-2023 betamethasone acetate-betamethasone sodium phosphate 12 mg injection (CELESTONE) Start: 01-03-2023 End: 01-03-2023 betamethasone acetate-betame thasone sodium phosphate 12 mg injection (CELESTONE) 168 hr buprenorphine 0.01 mg/hr transdermal system (4 sources) Partial Opioid Agonist Start: 07-27-2021 apply 1 dose transdermal route every week buprenorphine (BUTRANS) 10 mcg/hour Apply 1 Patch as directed one time a week for 30 days. 0 07/27/2021 Active Comment on above: Apply 1 Patch as dir ected one time a week for 30 days. calcium carbonate 500 mg chewable tablet (8 sources) Start: 02-08-2023 End: 05-29-2023 take 500 mg by mouth every hour as needed calcium carbonate (TUMS) 500 mg chew Take 1 tablet by mouth every hour as needed (mouth or hand numbness or tingling). 120 tablet 0 02/08/2023 05/29/2023 Discontinued End: 10-30-2021 take 1200 mg by mouth once daily calcium carbonate (CALCIUM 300 ORAL) Take 1,200 mg by mouth once daily. 10/30/2021 Discontinued Comment on above: Take 1 tablet by [facility] every hour as needed (mouth or hand numbness or tingling). COMPOUNDED PRESCRIPTION (4 sources) Start: 04-03-2019 End: 10-30-2021 COMPOUNDED PRESCRIPTION ORTHOPEDIC SHOES ONE PAIR THAT WOULD ACCOMMODATE AFO BRACE DUE TO FOOT EDEMA DX I63.9 2 Device 04/03/2019 10/30/2021 Discontinued Start: 02-03-2019 End: 10-30-2021 COMPOUNDED PRESCRIPTION Rochelle cations: Left spastic hemiparesis (HCC) 736.79 AFO left foot Dx. left foot drop. 1 Each 02/03/2019 10/30/2021 Discontinued diclofenac sodium 0.01 mg/mg topical gel (2 sources) Nonsteroidal Anti-inflammatory Drug Start: 12-07-2020 End: 07-27-2021 apply 2 g topically four times daily diclofenac (VOLTAREN) 1 % topical gel Apply 2 g to affected area four times daily. 100 g 1 12/07/2020 07/27/2021 Discontinued docusate sodium 100 mg oral capsule (20 sources) Start: 11-16-2017 End: 01-09-2024 take 1 capsule by mouth twice daily docusate sodium (COLACE) 100 mg capsule Take 1 capsule by mouth twice daily. 60 capsule 11 11/16/2017 01/09/2024 Discontinued (Course of therapy completed) Comment on above: Take 1 capsule by mo [facility] twice daily. estradiol 0.1 mg/ml vaginal cream (20 sources) Estrogen Start: 08-24-2022 End: 02-08-2023 estradiol (ESTRACE) 0.01 % (0.1 mg/gram) vaginal cream Indications: Atrophic vaginitis Finger - Tip amount at bedtime as directed for 2 weeks, then every other day 42.5 g 3 08/24/2022 02/08/2023 Discontinued Comment on above: Finger - Tip amount at bedtime as directed for 2 weeks, then every other day 3 ml sodium hyaluronate 20 mg/ml prefilled syringe (2 sources) Start: 01-02-2024 End: 01-02-2024 hyaluronate sodium, stabilized syrg 3 mL (DUROLANE) hydrocortisone 0.025 mg/mg topical ointment (20 sources) Corticosteroid Start: 01-21-2020 End: 01-22-2024 hydrocortisone 2.5 % ointment Apply to affected area twice daily as needed (hemorrhoids). 28.35 g 2 01/21/2020 09/19/2021 Discontinued Comment on above: Apply to affected ar ea twice daily as needed (hemorrhoids). 10 ml lidocaine hydrochloride 10 mg/ml injection (2 sources) Antiarrhythmic, Amide Local Anesthetic Start: 01-03-2023 End: 01-03-2023 lidocaine (PF) 10 mg/mL (1 %) 4 mL injection (XYLOCAINE) Start: 04-19-2021 End: 04-26-2021 lidocaine viscous (LIDOCAINE VISCOUS) 2 % solution Indications: Aphthous ulcer Take 5 mL by mouth as needed for pain for up to 7 days. 100 mL 1 04/19/2021 04/26/2021 multivitamin (MULTIPLE VITAMINS) tablet (6 sources) take 1 tablet by mouth once daily multivitamin (MULTIPLE VITAMINS) tablet Take 1 tablet by mouth once daily. 0 Active Comment on above: Take 1 tablet by [facility] once daily. naloxone hydrochloride 40 mg/ml nasal spray (20 sources) Opioid Antagonist Start: naloxone 4 mg/actuation nasal spray (NARCAN) Indications: Opioid use 1 [place] by nasal (alternating) route as needed for known or suspected opioid overdose. Use 1 spray in one nostril as needed for overdose. May repeat every 2 to 3 min in alternating nostrils until medical assistance is available 2 Each 0 12/05/2021 Active Comment on above: 1 [place] by nasal (al ternating) route as needed for known or suspected opioid overdose. Use 1 spray in one nostril as needed for overdose. May repeat every 2 to 3 min in alternating nostrils until medical assistance is available naloxone 4 mg/actuation nasal spray (NARCAN) (1 source) Start: End: naloxone 4 mg/actuation nasal spray (NARCAN) Indications: Opioid use 1 [place] by nasal (alternating) route as needed for known or suspected opioid overdose. Use 1 spray in one nostril as needed for overdose. May repeat every 2 to 3 min in alternating nostrils until medical assistance is available 2 Each 12/05/2021 02/08/2023 Discontinued ondansetron 4 mg disintegrating oral tablet (20 sources) Serotonin-3 Receptor Antagonist Start: End: take 1 tablet by mouth every six hours as needed ondansetron orally disintegrating (ZOFRAN ODT) 4 mg disintegrating tablet Take 1 tablet by mouth every 6 hours as needed for nausea/vomiting. 20 tablet 05/31/2022 01/31/2023 Discontinued Comment on above: Take 1 tablet by [facility] every 6 hours as needed for nausea/vomiting. oxybutynin chloride 5 mg oral tablet (11 sources) Cholinergic Muscarinic Antagonist Start: End: take 0.5 tablet by mouth twice daily oxybutynin (DITROPAN) 5 mg tablet Take 0.5 tablets by mouth twice daily. 90 tablet 1 03/24/2021 12/25/2021 Discontinued Comment on above: Take 0.5 tablets by mouth twice daily. sulfamethoxazole 800 mg / trimethoprim 160 mg oral tablet (19 sources) Dihydrofolate Reductase Inhibitor Antibacterial, Sulfonamide Antimicrobial End: take 1 tablet by mouth twice daily sulfamethoxazole-trim ethoprim (BACTRIM DS,SEPTRA DS) 800-160 mg per tablet Take 1 tablet by mouth twice daily. 0 07/26/2022 Discontinued (Course of therapy completed) Comment on above: Take 1 tablet by [facility] twice daily. Problems Active Problems Problem Classification Problem Date Documented Date Episodic/Chronic Acute cerebrovascular disease (20 sources) Cerebrovascular accident due to thrombus of right middle cerebral artery; Translations: [Cerebral infarction due to thrombosis of right middle cerebral artery] Onset: 6 11-15-2017 Chronic Blindness and vision defects (1 source) Reduced visual acuity; Translations: [Unspecified visual loss] 01-13-2024 Chronic Conditions associated with dizziness or vertigo (1 source) Dizziness; Translations: [Dizziness and giddiness] Episodic Disorders of lipid metabolism (20 sources) Hyperlipidemia; Translations: [Hyperlipidemia, unspecified] Onset: 4 02-14-2014 Chronic Esophageal disorders (20 sources) Gastroesophageal reflux disease; Translations: [Gastro-esophageal reflux disease without esophagitis] Onset: 3 Chronic Headache; including migraine (20 sources) Migraine without aura; Translations: [Migraine without aura, not intractable, without status migrainosus] Onset: 2 02-02-2022 Chronic Immunizations and screening for infectious disease (6 sources) Immunization due; Translations: [Encounter for immunization] Onset: 3 06-19-2023 Episodic Menopausal disorders (1 source) Atrophic vaginitis; Translations: [Postmenopausal atrophic vaginitis] Chronic Miscellaneous mental health disorders (1 source) Primary insomnia; Translations: [Primary insomnia] Chronic Nutritional deficiencies (20 sources) Vitamin D deficiency; Translations: [Vitamin D deficiency, unspecified] Onset: 9 08-14-2015 Chronic Open wounds of extremities (1 source) Tear of skin; Translations: [Laceration without foreign body, left lower leg, initial encounter] Episodic Osteoarthritis (20 sources) Osteoarthritis; Translations: [Osteoarthrosis, unspecified whether generalized or localized, lower leg] Onset: 0 06-29-2010 Chronic Osteoporosis (20 sources) Osteoporosis; Translations: [Age-related osteoporosis without current pathological fracture] Onset: 1 05-13-2021 Chronic Other connective tissue disease (1 source) Swelling of left lower limb; Translations: [Other specified soft tissue disorders] Episodic Other connective tissue disease (3 sources) Swelling of lower limb; Translations: [Other specified soft tissue disorders] 06-19-2023 Episodic Other connective tissue disease (1 source) Pain in right hand; Translations: [Pain in right hand] 05-08-2021 Episodic Other diseases of bladder and urethra [...] Translations: [Primary hyperparathyroidism] Chronic Other endocrine disorders (1 source) Primary hyperparathyroidism; Translations: [Primary hyperparathyroidism (HCC)] Onset: 3 Chronic Other endocrine disorders (1 source) Hyperparathyroidism, unspecified; Translations: [Hyperparathyroidism (HCC)] Onset: 2 Chronic Other gastrointestinal disorders (1 source) Esophageal dysphagia; Translations: [Other dysphagia] Episodic Other injuries and conditions due to external causes (1 source) At high risk for fall; Translations: [History of falling] 01-09-2024 Episodic Other liver diseases (3 sources) Alkaline phosphatase raised; Translations: [Abnormal levels of other serum enzymes] Episodic Other lower respiratory disease (1 source) Dry cough; Translations: [Dry cough] 04-19-2021 Episodic Other nervous system disorders (1 source) Unsteady when walking; Translations: [Unsteadiness on feet] 01-09-2024 Episodic Other non-traumatic joint disorders (3 sources) Pain in right knee; Translations: [Pain [...] nutritional; endocrine; and metabolic disorders (20 sources) Body mass index 40+ - severely obese; Translations: [Morbid (severe) obesity due to excess calories] Onset: 2 01-31-2023 Chronic Other nutritional; endocrine; and metabolic disorders (1 source) Hypercalcemia; Translations: [Hypercalcemia] Onset: 1 Chronic Other nutritional; endocrine; and metabolic disorders (1 source) Obesity, unspecified; Translations: [Obesity, Class II, BMI 35-39.9] Onset: 4 Chronic Other nutritional; endocrine; and metabolic disorders (1 source) Morbid (severe) obesity due to excess calories; Translations: [Obesity, Class III, BMI 40-49.9 (morbid obesity) ([facility])] Onset: 3 Chronic Paralysis (20 sources) Left [...] Classification Problem Date Documented Da te Episodic/Chronic Benign neoplasm of uterus (17 sources) Uterine leiomyoma; Translations: [Leiomyoma of uterus, unspecified] Onset: 9 Resolved: 9 10-24-2018 Episodic Complications of surgical procedures or medical care (17 sources) Complication of implant; Translations: [Other complications of gastric band procedure] Onset: 7 Resolved: 8 06-26-2018 Episodic Fluid and electrolyte disorders (3 sources) Hypokalemia; Translations: [Hypokalemia] Onset: 4 Episodic Gastroduodenal ulcer (except hemorrhage) (17 sources) Gastric ulcer; Translations: [Gastric ulcer, unspecified as acute or chronic, without hemorrhage or perforation] Onset: 0 Resolved: 9 10-24-2018 Chronic Genitourinary symptoms and ill-defined conditions (2 sources) Increased frequency of urination; Translations: [Frequency of micturition] Onset: 4 Episodic Hemorrhoids (17 sources) Hemorrhoids; Translations: [Unspecified hemorrhoids] Resolved: 6 01-16-2016 Episodic Malaise and fatigue (2 sources) Fatigue; Translations: [Other fatigue] Onset: 4 Episodic Mood disorders (20 sources) Recurrent major depressive episodes; Translations: [Major depressive disorder, recurrent, unspecified] Onset: 3 Resolved: 3 02-12-2023 Chronic Other and ill-defined cerebrovascular disease (17 sources) Cerebrovascular disease; Translations: [Other cerebrovascular disease] Resolved: 8 09-19-2017 Chronic Other and unspecified benign neoplasm (20 sources) Benign neoplasm of skin of face; Translations: [Other benign neoplasm of skin of unspecified part of face] Onset: 6 04-21-2010 Episodic Other bone disease and musculoskeletal deformities (20 sources) Osteopenia; Translations: [Other specified disorders of bone density and structure, unspecified site] Onset: 4 07-17-2021 Episodic Other congenital anomalies (17 sources) Congenital anomaly of skin; Translations: [Other specified congenital malformations of skin] Onset: 5 Resolved: 6 01-16-2016 Chronic Other connective tissue disease (20 sources) Pes anserinus bursitis of left knee; Translations: [Other bursitis of knee, left knee] Onset: 2 05-26-2012 Episodic Other connective tissue disease (1 source) Other specified soft tissue disorders; Translations: [Leg swelling] Onset: 3 Episodic Other diseases of veins and lymphatics (1 source) Venous insufficiency (chronic) (peripheral); Translations: [Venous incompetence] Onset: 8 Episodic Other gastrointestinal disorders (17 sources) Difficulty swallowing solids; Translations: [Dysphagia, unspecified] Onset: 6 Resolved: 9 10-24-2018 Episodic Other gastrointestinal disorders (17 sources) Dysphagia; Translations: [Dysphagia, unspecified] Onset: 7 Resolved: 9 10-24-2018 Episodic Other lower respiratory disease (1 source) Other abnormalities of breathing; Translations: [Decreased breath sounds at left lung base] Onset: 4 Episodic Other nutritional; endocrine; and metabolic disorders (17 sources) Morbid obesity; Translations: [Morbid (severe) obesity due to excess calories] Onset: 0 Resolved: 3 01-31-2023 Chronic Other screening for suspected conditions (not mental disorders or infectious disease) (20 sources) Other specified abnormal findings of blood chemistry; Translations: [Other abnormal blood chemistry] Onset: 5 Resolved: 9 Episodic Phlebitis; thrombophlebitis and thromboembolism (1 source) Phlebitis and thrombophlebitis of other sites; Translations: [Superficial thrombophlebitis of right upper extremity] Onset: 4 Episodic Pneumonia (except that caused by tuberculosis or sexually transmitted disease) (1 source) Pneumonia, unspecified organism; Translations: [Community acquired pneumonia, unspecified laterality] Onset: 4 Episodic Residual codes; unclassified (20 sources) Insomnia; Translations: [Insomnia, unspecified] Onset: 2 Resolved: 3 02-02-2022 Episodic Skin and subcutaneous tissue infections (1 source) Cellulitis, unspecified; Translations: [Cellulitis of skin] Onset: 4 Episodic Spondylosis; intervertebral disc disorders; other back problems (20 sources) Chronic low back pain; Translations: [Chronic bilateral low back pain without sciatica] Onset: 6 04-13-2016 Episodic Results Test Name Value Interpretation Reference Range Facility [facility] 05-06-2024 OV Office Visit (ENDMED ) -------- JANAY FREDERICK ([id number]) 1950 F Date Time Provider Department 05/06/24 3:20 PM HAYDEN FLANAGAN During your visit today, we recorded the following information about you: Pulse Blood pressure Weight Height 91/minute 137/80 91.3 kg 1.524 m Hayden Flanagan MD 05/06/2024 3:51 PM Signed ENDOCRINOLOGY CLINIC NOTE Reason for visit Janay Frederick is a pleasant 74 year old female with history of CVA, [...] and no history of kidney stones. She underwent left lower parathyroidectomy by Dr. Vance in 01/2023. Had intraoperative PTH declined from 112 to 40. Pathology showed hypercellular left lower gland. Interval events: She takes total calcium 1200 mg per day, she takes vitamin D but unclear strength. Doing well overall with no falls or fractures Osteoporosis: DXA scan 02/03/2024: Lumbar spine (L1, L2, L3, L4): 1.129 g/cm2, T-score 0.7 No statistically significant change Right Femoral Neck: 0.589 g/cm2, T-score -2.3 No statistically significant change Right Total Hip: 0.781 g/cm2, T-score -1.3 No statistically significant change Left Femoral Neck: 0.595 g/cm2, T-score -2.3 No statistically significant change Left Total Hip: 0.803 g/cm2, T-score -1.1 No statistically significant change Left Forearm, Distal 1/3 of Radius: 0.674 g/cm2, T-score -0.3 DXA 08/2021 compared to 2019: L spine T score 0.8 (stable) L TH T score -1.3 (stable) L FN T score -2.6 R TH T score -1.1 R FN T score -2.4 (decline) Fracture history: Lumbar compression fracture 15 years ago when she tripped and fell from a standing height. Thoracic compression fracture on DXA 2013 R wrist fracture 4-5 years ago when she fell from a standing height Treatment history (including any side effects/contraindication s): Reclast x2 in 01/2021 and 09/2022 Family [...] Medical History PAST MEDICAL HISTORY Diagnosis Date - BCC (basal cell carcinoma of skin) - Chronic lower back pain Dr. Nur - Gastric band slippage Dr. Garcia, removed 11/06 - Gastric ulcer, unspecified as acute or chronic, without mention of hemorrhage or perforation, with obstruction - Generalized osteoarthrosis, unspecified site back - GERD (gastroesophageal reflux disease) - Hyperparathyroidism (HCC) s/p parathyroidectomy 02/08/2023 - Insomnia - Knee pain, chronic - Lumbago - Migraine without aura on diltiazem - Obesity, unspecified stated BMI 40.5 HT: 61.5 WT: 220 - Osteopenia of multiple sites - Overactive bladder - Personal history of unspecified urinary disorder years ago since last bladder infection - SCC (squamous cell carcinoma) - Stroke (HCC) 12/06/1981 cva left side residual, young at age 31, likely 2/2 OCPs - Unspecified hemorrhoids without mention of complication Hemorrhoids - Urinary urgency - Uterine prolapse s/p hysterectomy - Venous incompetence bilaterally, f/u Dr. Maravilla - Vitamin D deficiency Past Surgical History PAST SURGICAL HISTORY Procedure Laterality Date - ARTHRP KNE CONDYLEANDPLATU MEDIALANDLAT COMPARTMENTS Left 03/17/2014 Knee replacement, total left - COLONOSCOPY FLX DX W/COLLJ SPEC WHEN PFRMD 02/08/2005 Colonoscopy - COLONOSCOPY FLX DX W/COLLJ SPEC WHEN PFRMD 8 (more content not included)... [facility] OTONIELJANAY Mari ([id number]) 1950 F Date Time Provider Department 04/30/24 SHORTY TERESA [facility] During your visit today, we recorded the following information about you: Juvenal Toro LPN 04/30/2024 12:22 PM Signed Pt calling to request orders for a mammogram. Please advise pt when orders are in and help get apt booked after 05-16-24. CHAD Clarke Danielle, APRN.[facility] 04/30/2024 12:58 PM Signed Order placed Juvenal Toro LPN 04/30/2024 1:49 PM Signed Spoke with pt and information listed below given. Pt verbalizes understanding. Juvenal Toro LPN Allergies As of Date: 04/30/2024 Noted Allergy Reaction FLAGYL (METRONIDAZOLE) 03/26/2017 8 - GI Upset Comments: Severe nausea, malaise, dizziness HCTZ (THIAZIDES) 08/14/2015 14 - Other: See Comments Comments: hypercalcemia Date Reviewed: 04/14/2024 Reviewed by: Marlene Loaiza LPN - Fully Assessed Reason for Visit: Results [95] Primary Visit Diagnosis:Screening mammogram for breast cancer [Z12.31] Order(s):[facility] SCREENING [[id number]] Order #: [id number] FUTURE Prescriptions as of 04/30/2024 - zoledronic acid (RECLAST) 5 mg/100 mL PREMIX piggyback Inject 100 mL intravenously one time only for 1 dose. - COMPRESSION HOSIERY KNEE LENGTH, AD, 30-40 MMHG once daily. - gabapentin (NEURONTIN) 300 mg capsule Take 1 capsule by mouth once daily for 90 days. - amitriptyline (ELAVIL) 75 mg tablet Take 1 tablet by mouth daily at bedtime. - tolterodine ER (DETROL LA) 4 mg 24 hr capsule Take 1 capsule by mouth once daily. - omeprazole (PRILOSEC) 40 mg capsule Take 1 capsule by mouth once daily. - potassium chloride 20 mEq/15 mL solution Take 30 mL by mouth once daily. - atorvastatin (LIPITOR) 10 mg tablet Take 1 tablet by mouth once daily. Discontinue simvastatin - furosemide (LASIX) 40 mg tablet Take 1 tablet by mouth once daily. - dilTIAZem CD (CARTIA XT) 300 mg 24 hr capsule Take 1 capsule by mouth once daily. - ppeaqgf-okshwycvn-zetqni n D3 500 mg-5 mcg (200 unit) per tablet Take 1 tablet by mouth three times daily. - HYDROcodone-acetaminophe n (NORCO) 5-325 mg per tablet Take 3 tablets by mouth as needed. - cholecalciferol (VITAMIN D3) 50 mcg (2,000 unit) tablet Take 2,000 Units by mouth once daily. - multivitamin tablet Take 1 tablet by mouth once daily. Problem List As Of Date 04/30/2024 Noted Resolved Other specified congenital anomaly of skin [Q82*07/02/2005 01/16/2016 BLUE NEVUS NOSE [D23.30] 08/15/2005 Acute, but ill-defined, cerebrovascular disease* 09/19/2017 Unspecified hemorrhoids without mention of comp* 01/16/2016 Vitamin D deficiency [E55.9] 02/11/2009 Leiomyoma of uterus, unspecified [D25.9] 02/11/2009 10/24/2018 Morbid obesity (HCC) [E66.01] 12/20/2009 01/31/2023 Gastric ulcer with obstruction [K25.9] 12/20/2009 10/24/2018 Osteoarth NOS-l/leg [UWQ1310] 06/29/2010 Degenerative arthritis of left knee [M17.12] 02/07/2012 Pes anserinus bursitis of left knee [M70.52] 05/26/2012 Osteopenia [M85.80] 08/31/2013 HLD (hyperlipidemia) [E78.5] 02/14/2014 OAB (overactive bladder) [N32.81] 02/14/2014 Left spastic hemiparesis (HCC) [G81.14] 03/16/2014 Special screening for malignant neoplasms, colo*02/24/2015 10/24/2018 Primary osteoarthritis involving multiple joint*08/14/2015 Difficulty swallowing solids [R13.10] 10/20/2015 10/24/2018 Cerebrovascular accident (CVA) due to thrombosi*04/13/2016 Chronic bilateral low back pain without sciatic*04/13/2016 Incomplete uterovaginal prolapse [N81.2] 11/01/2016 Pelvic organ prolapse quantification stage 2 cy*06/10/2017 Dysphagia [R13.10] 07/09/2017 10/24/2018 Gastric band slippage [K95.09] 07/09/2017 06/26/2018 Preop testing [Z01.818] 10/11/2017 06/26/2018 Venous incompetence [I87.2] Hypercalcemia [E83.52] 05/13/2021 Osteoporosis [M81.0] 05/13/2021 Obesity, Class III, BMI 40-49.9 (morbid obesity*07/27/2021 Hyperparathyroidism (HCC) [E21.3] 07/27/2021 Migraine without aura [G43.009] 02/02/2022 Insomnia [G47.00] 02/02/2022 01/31/2023 GERD (gastroesophageal reflux disease) [K21.9] 01/31/2023 Episode of recurrent major depressive disorder *02/12/2023 06/19/2023 Obesity, Class II, BMI 35-39.9 [E66.812] 04/14/2024 Encounter Status:Closed by JUVENAL TORO on 04/30/24 [facility] CNOVon 04-14-2024 CNOV Office Visit (FAMPWS ) -------- JANAY FREDERIKC ([id number]) 1950 F Date Time Provider Department 04/14/24 1:00 PM KASSANDRA SHARMA During your visit today, we recorded the following information about you: Pulse Respiration Blood pressure Weight 97/minute 18/minute 130/82 90 kg Kassandra Sharma APRN.CNP 04/14/2024 2:01 PM Signed 04/14/2024 Patient presents with: F/U 3 Month SUBJECTIVE: This is a 74 year old that is here today for Above Complaints. Since last office visit hs been in good health without ER visits or hospitalizations. No falls since last office visit Hyperparathyroidism: Follows with Dr. Flanagan with last office visit on 06/08/2023. No medication changes at this time. Next follow-up on 05/06/2024 OA bladder: taking Detrol as prescribed without [...] Taking gabapentin as prescribed without side effects. Has follow-up appointment today HYPERLIPIDEMIA: Patient is taking medications: Yes. Patient is watching diet: Yes. Patient denies myalgias: Yes. Patient denies gi upset: Yes Patient wondering when her next Reclast infusion should be. PAST MEDICAL HISTORY Diagnosis Date BCC (basal [...] [Thiazides] MEDICATIONS Current Outpatient Medications Medication Sig COMPRESSION HOSIERY KNEE LENGTH, AD, 30-40 MMHG once daily. gabapentin (NEURONTIN) 300 mg capsule Take 1 capsule by mouth once daily for 90 days. amitriptyline (ELAVIL) 75 mg tablet Take 1 tablet by mouth daily at bedtime. tolterodine ER (DETROL LA) 4 mg 24 hr capsule Take 1 capsule by mouth once daily. omeprazole (PRILOSEC) 40 mg capsule Take 1 capsule by mouth once daily. potassium chloride 20 mEq/15 mL solution Take 30 mL by mouth once daily. atorvastatin (LIPITOR) 10 mg tablet Take 1 tablet by mouth once daily. Discontinue simvastatin furosemide (LASIX) 40 mg tablet Take 1 tablet by mouth once daily. dilTIAZem CD (CARTIA XT) 300 mg 24 hr capsule Take 1 capsule by mouth once daily. sxafapu-fkgqpvifw-rjnkhy n D3 500 mg-5 mcg (200 unit) per tablet Take 1 tablet by mouth three times daily. zoledronic acid (RECLAST) 5 mg/100 mL pgbk PREMIX piggyback Inject 100 mL intravenously one time only for 1 dose. HYDROcodone-acetaminophe n (NORCO) 5-325 mg per tablet Take 3 tablets by mouth as needed. cholecalciferol (VITAMIN D3) 50 mcg (2,000 unit) tablet Take 2,000 Units by mouth once daily. multivitamin tablet Take 1 tablet by mouth once daily. No current facility-administered medications for this visit. Medications and allergies reviewed by this provider. SOCIAL HISTORY Social History Tobacco Use Smoking status: Never Smokeless tobacco: Never Vaping Use Vaping status: Never Used Substance Use Topics Alcohol use: No Drug use: No REVIEW OF SYSTEMS All other reviewed and negative other than HPI. OBJECTIVE: BP 130/82 Pulse 97 Resp 18 Wt 90 kg (198 lb 6.6 oz) SpO2 94% BMI 38.75 kg/m? . Vital signs reviewed by this provider. APPEARANCE Well appearing, alert, in no acute distress, well-hydrated, well nourished. EYES PERRLA, conjunctiva and sclera normal. HEART RRR with normal S1 and S2, no murmurs, no gallops, no JVD appreciated LUNG clear to auscultation. No wheezes, rhonchi or rales EXTREMITIES Compression hose intact SKIN Skin color, texture, turgor normal, no suspicious rashes or lesions to exposed skin Latest Ref Rng 08/28/2023 Protein, Total 6.3 - 8.0 g/dL 6.2 (L) Albumin 3.9 - 4.9 g/dL 4.1 Calcium 8.5 - 10.2 m (more content not included)... [facility] BD DXA - AXIAL SKELETONon BD DXA - AXIAL SKELETON * * *Final Report* * * DATE OF EXAM: Feb 03 2024 1:59PM WRLorenzo [id number] - BD DXA - AXIAL SKELETON / PROCEDURE REASON: multiple diagnoses * * * * Physician Interpretation * * * * EXAMINATION: DXA BONE DENSITOMETRY BD DXA - AXIAL SKELETON, BD DXA - FOREARM SKELETON PATIENT DEMOGRAPHICS: Age: 73 years, Gender: Female SCANNER INFORMATION: DXA Model: [employer] - [employer] C [id number] Date Scanned: 02/03/2024 1:59 PM CLINICAL HISTORY: SCREENING Hyperparathyroidism (HCC) Osteoporosis without current pathological fracture, unspecified osteoporosis type . RISK FACTORS FOR OSTEOPOROSIS AND ASSOCIATED FRACTURES REPORTED BY THIS PATIENT: Please refer to Bone Health Questionnaire in the EMR CURRENT THERAPY: Please refer to Bone Health Questionnaire in the EMR TECHNICAL LIMITATIONS: RESULTS: Lumbar spine (L1, L2, L3, L4): 1.129 g/cm2, T-score 0.7 , Z-score 3.2 Lumbar spine: 2021 : 1.130 g/cm2 No statistically significant change Right Femoral Neck: 0.589 g/cm2, T-score -2.3 , Z-score -0.2 Right Femoral Neck: 2021 : 0.583 g/cm2 No statistically significant change Right Total Hip: 0.781 g/cm2, T-score -1.3 , Z-score 0.5 Right Total Hip: 2021 : 0.807 g/cm2 No statistically significant change Left Femoral Neck: 0.595 g/cm2, T-score -2.3 , Z-score -0.2 Left Femoral Neck: 2021 : 0.563 g/cm2 No statistically significant change Left Total Hip: 0.803 g/cm2, T-score -1.1 , Z-score 0.7 Left Total Hip: 2021 : 0.786 g/cm2 No statistically significant change Left Forearm, Distal 1/3 of Radius: 0.674 g/cm2, T-score -0.3 , Z-score 2.3 Forearm: : g/cm2 CHANGE IS STATISTICALLY SIGNIFICANT IN THE SPINE OR HIP IF GREATER THAN OR EQUAL TO 0.04 g/cm2 VERTEBRAL FRACTURE ASSESSMENT Not performed. TRABECULAR BONE ASSESSMENT TBS not performed: IMPRESSION: THE LOWEST T-SCORE IS -2.3 IN THE RIGHT AND LEFT HIPS 1) DIAGNOSIS (based on BMD alone): OSTEOPENIA Caution: Medical conditions other than osteoporosis may cause low bone density, such as osteomalacia or renal osteodystrophy. Clinical correlation is necessary. 2) FRACTURE RISK (based on FRAX): 10-year absolute fracture risk: - major osteoporotic fracture = 19 % - hip fracture = 4.9 % - A diagnosis of Osteoporosis, a 10 year probability of hip fracture greater than or equal to 3% or a 10 year probability of any major osteoporosis-related fracture greater than or equal to 20% should be considered for treatment. - DXA scanner generated FRAX calculations may slightly differ from online FRAX calculations due to differences in software versions. - All recommendations and calculations are to be considered as guidelines and should not replace sound clinical judgement - Caution: Fracture risk may be increased independent of BMD in patients with corticosteroid use, age greater than 65 years, or a history of prior fragility fracture. RECOMMENDATIONS: Follow-up in 2 years or as clinically indicated. Patients that are taking corticosteroids, are transplant recipients or have hyperparathyroidism should have annual follow-up. Follow-up scans should always be done on the same machine for accurate comparison. FOR MORE INFORMATION ABOUT DIAGNOSIS AND TREATMENT: [facility]oporosis and Metabolic Bone Disease:? www.ccf.org/arthritis/os dejah National Osteoporosis Foundation:? www.nof.org International Society of Clinical Densitometry www.iscd.org Mine Equipment Design Engineer: OBINNA Transcribe Date/Time: Feb 08 2024 7:27A Dictated by : BERNA PEÑA MD This examination was interpreted and the report reviewed and electronically signed by: BERNA PEÑA MD on Feb 08 2024 7:30AM EST [id number] Normal [facility] DXA - FOREARM SKELETONon 02-03-2024 BD DXA - FOREARM SKELETON * * *Final Report* * * DATE OF EXAM: Feb 03 2024 1:59PM WRLorenzo [id number] - BD DXA - FOREARM SKELETON / PROCEDURE REASON: multiple diagnoses * * * * Physician Interpretation * * * * EXAMINATION: DXA BONE DENSITOMETRY BD DXA - AXIAL SKELETON, BD DXA - FOREARM SKELETON PATIENT DEMOGRAPHICS: Age: 73 years, Gender: Female SCANNER INFORMATION: DXA Model: [employer] - [employer] Virtual C [id number] Date Scanned: 02/03/2024 1:59 PM CLINICAL HISTORY: SCREENING Hyperparathyroidism (HCC) Osteoporosis without current pathological fracture, unspecified osteoporosis type . RISK FACTORS FOR OSTEOPOROSIS AND ASSOCIATED FRACTURES REPORTED BY THIS PATIENT: Please refer to Bone Health Questionnaire in the EMR CURRENT THERAPY: Please refer to Bone Health Questionnaire in the EMR TECHNICAL LIMITATIONS: RESULTS: Lumbar spine (L1, L2, L3, L4): 1.129 g/cm2, T-score 0.7 , Z-score 3.2 Lumbar spine: 2021 : 1.130 g/cm2 No statistically significant change Right Femoral Neck: 0.589 g/cm2, T-score -2.3 , Z-score -0.2 Right Femoral Neck: 2021 : 0.583 g/cm2 No statistically significant change Right Total Hip: 0.781 g/cm2, T-score -1.3 , Z-score 0.5 Right Total Hip: 2021 : 0.807 g/cm2 No statistically significant change Left Femoral Neck: 0.595 g/cm2, T-score -2.3 , Z-score -0.2 Left Femoral Neck: 2021 : 0.563 g/cm2 No statistically significant change Left Total Hip: 0.803 g/cm2, T-score -1.1 , Z-score 0.7 Left Total Hip: 2021 : 0.786 g/cm2 No statistically significant change Left Forearm, Distal 1/3 of Radius: 0.674 g/cm2, T-score -0.3 , Z-score 2.3 Forearm: : g/cm2 CHANGE IS STATISTICALLY SIGNIFICANT IN THE SPINE OR HIP IF GREATER THAN OR EQUAL TO 0.04 g/cm2 VERTEBRAL FRACTURE ASSESSMENT Not performed. TRABECULAR BONE ASSESSMENT TBS not performed: IMPRESSION: THE LOWEST T-SCORE IS -2.3 IN THE RIGHT AND LEFT HIPS 1) DIAGNOSIS (based on BMD alone): OSTEOPENIA Caution: Medical conditions other than osteoporosis may cause low bone density, such as osteomalacia or renal osteodystrophy. Clinical correlation is necessary. 2) FRACTURE RISK (based on FRAX): 10-year absolute fracture risk: - major osteoporotic fracture = 19 % - hip fracture = 4.9 % - A diagnosis of Osteoporosis, a 10 year probability of hip fracture greater than or equal to 3% or a 10 year probability of any major osteoporosis-related fracture greater than or equal to 20% should be considered for treatment. - DXA scanner generated FRAX calculations may slightly differ from online FRAX calculations due to differences in software versions. - All recommendations and calculations are to be considered as guidelines and should not replace sound clinical judgement - Caution: Fracture risk may be increased independent of BMD in patients with corticosteroid use, age greater than 65 years, or a history of prior fragility fracture. RECOMMENDATIONS: Follow-up in 2 years or as clinically indicated. Patients that are taking corticosteroids, are transplant recipients or have hyperparathyroidism should have annual follow-up. Follow-up scans should always be done on the same machine for accurate comparison. FOR MORE INFORMATION ABOUT DIAGNOSIS AND TREATMENT: [facility] for Osteoporosis and Metabolic Bone Disease:? www.ccf.org/arthritis/os dejah National Osteoporosis Foundation:? www.nof.org International Society of Clinical Densitometry www.iscd.org Mine Equipment Design Engineer: OBINNA Transcribe Date/Time: Feb 08 2024 7:27A Dictated by : BERNA PEÑA MD This examination was interpreted and the report reviewed and electronically signed by: BERNA PEÑA MD on Feb 08 2024 7:30AM EST [id number] [facility] Jimbo 01-10-2024 CNPN Telephone (FAMPWS) -------- JANAY FREDERICK ([id number]) 1950 F Date Time Provider Department 01/10/24 SHORTY TERESA During your visit today, we recorded the following information about you: Sveta Buckley 01/10/2024 1:32 PM Signed Janay is calling Shorty Teresa MD today with concern regarding location change of physical therapy Patient would like to go to [facility] for her Physical Therapy. Patient asking to have prescription faxed to [phone]. ( Patient has been identified by name and birthdate. Duration of symptoms: N/A Person calling: self Call patient at: on cell [phone] (home) [phone] (cell) Was an appointment scheduled: No Closing statement: Results or non-symptom based questions: Thank you for calling [facility], your call will be returned within the next business day. Yael Ann LPN 01/10/2024 3:27 PM Addendum Order, OV note and demographics forwarded to [facility] as requested. Yael Flores LPN After documented -fax failed multiple times. Sent to [facility] via community center worker. Yael Flores LPN Allergies As of Date: 01/10/2024 Noted Allergy Reaction FLAGYL (METRONIDAZOLE) 03/26/2017 8 - GI Upset Comments: Severe nausea, malaise, dizziness HCTZ (THIAZIDES) 08/14/2015 14 - Other: See Comments Comments: hypercalcemia Date Reviewed: 01/09/2024 Reviewed by: Yael Flores LPN - Fully Assessed Reason for Visit: location change of physical therapy [Other] Prescriptions as of 01/10/2024 - potassium chloride 20 mEq/15 mL solution Take 30 mL by mouth once daily. - dilTIAZem CD (CARTIA XT) 300 mg 24 hr capsule Take 1 capsule by mouth once daily. - hydrocortisone 2.5 % ointment Apply to affected area two times a day as needed (hemorrhoids). - omeprazole (PRILOSEC) 40 mg capsule Take 1 capsule by mouth once daily. - atorvastatin (LIPITOR) 10 mg tablet Take 1 tablet by mouth once daily. Discontinue simvastatin - gabapentin (NEURONTIN) 300 mg capsule Take 1 capsule by mouth once daily for 90 days. - tolterodine ER (DETROL LA) 4 mg 24 hr capsule Take 1 capsule by mouth once daily. - amitriptyline (ELAVIL) 75 mg tablet Take 1 tablet by mouth daily at bedtime. - famotidine (PEPCID) 20 mg tablet Take 1 tablet by mouth at bedtime as needed. - COMPRESSION HOSIERY KNEE LENGTH, AD, 30-40 MMHG once daily. - furosemide (LASIX) 40 mg tablet Take 1 tablet by mouth once daily. - olqzvic-unaoxlvev-cdlgtz n D3 500 mg-5 mcg (200 unit) per tablet Take 1 tablet by mouth three times daily. - zoledronic acid (RECLAST) 5 mg/100 mL pgbk PREMIX piggyback Inject 100 mL intravenously one time only for 1 dose. - HYDROcodone-acetaminophe n (NORCO) 5-325 mg per tablet Take 3 tablets by mouth as needed. - cholecalciferol (VITAMIN D3) 50 mcg (2,000 unit) tablet Take 2,000 Units by mouth once daily. - multivitamin tablet Take 1 tablet by mouth once daily. 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.30] 08/15/2005 Acute, but ill-defined, cerebrovascular disease* 09/19/2017 Unspecified hemorrhoids without mention of comp* 01/16/2016 Vitamin D deficiency [E55.9] 02/11/2009 Leiomyoma of uterus, unspecified [D25.9] 02/11/2009 10/24/2018 Morbid obesity (HCC) [E66.01] 12/20/2009 01/31/2023 Gastric ulcer with obstruction [K25.9] 12/20/2009 10/24/2018 Osteoarth NOS-l/leg [DWR0895] 06/29/2010 Degenerative arthritis of left knee [M17.12] 02/07/2012 Pes anserinus bursitis of left knee [M70.52] 05/26/2012 Osteopenia [M85.80] 08/31/2013 HLD (hyperlipidemia) [E78.5] 02/14/2014 OAB (overactive bladder) [N32.81] 02/14/2014 Left spastic hemiparesis (HCC) [G81.14] 03/16/2014 Special screening for malignant neoplasms, colo*02/24/2015 10/24/2018 Primary osteoarthritis involving multiple joint*08/14/2015 Difficulty swallowing solids [R13.10] 10/20/2015 10/24/2018 Cerebrovascular accident (CVA) due to thrombosi*04/13/2016 Chronic bilateral low back pain without sciatic*04/13/2016 Incomplete uterovaginal prolapse [N81.2] 11/01/2016 Pelvic organ prolapse quantification stage 2 cy*06/10/2017 Dysphagia [R13.10] 07/09/2017 10/24/2018 Gastric band slippage [K95.09] 07/09/2017 06/26/2018 Preop testing [Z01.818] 10/11/2017 06/26/2018 Venous incompetence [I87.2] Hypercalcemia [E83.52] 05/13/2021 Osteoporosis [M81.0] 05/13/2021 Obesity, Class III, BMI 40-49.9 (morbid obesity*07/27/2021 Hyperparathyroidism (HCC) [E21.3] 07/27/2021 Migraine without aura [G43.009] 02/02/2022 Insomnia [G47.00] 02/02/2022 01/31/2023 GERD (gastroesophageal reflux disease) [K21.9] 01/31/2023 Episode of recurrent major depressive disorder *02/12/2023 06/19/2023 Encounter Status:Closed by YAEL FLORES on 01/10/24 [facility] CNOVon 01-09-2024 CNOV Office Visit (FAMPWS ) -------- JANAY FREDERICK ([id number]) 1950 F Date Time Provider Department 01/09/24 1:20 PM SHORTY TERESA FAMPWS During your visit today, we recorded the following information about you: Pulse Respiration Blood pressure Weight 84/minute 16/minute 132/70 92.3 kg Shorty Teresa MD 01/13/2024 7:23 AM Signed Janay Frederick is a 73 year old female here for a Medicare wellness visit. Patient has been in good health without hospitalizations or ER visits. Has not had any falls in several months with the use of her cane. Feels steady on her feet. Agreeable to COVID vaccine today. Up to date on cancer screening. Has order in the system for her DXA from endocrinology's office. Medicare Health Risk Assessment General Health Very good Exercise: Minutes/Day 30 min Exercise: Days/Week 3 days Alcohol: Daily Use Never Alcohol: Drinks/Day Patient does not drink Alcohol: 6 or more drinks Never Feel off balance No Concerns: Teeth/Dentures No Concerns: Sexual function No Troubled by feelings None of the above Frequency: Eating healthy diet Nearly every day ADLs requiring help Housework Safety precautions in home/vehicle Yes Smoke, vape, chews tobacco No Difficulty hearing No Difficulty seeing No Current Providers Specialists: I have reviewed specialist-related care of the patient in the medical record. Current care team: Patient Care Team: Shorty Teresa MD as PCP - General (Family Medicine) Outside specialists seen: Dr. Nur-pain management, Dr. Maravilla-Vascular, Dr. Flanagan-endocrinology, Dr. Vance-endo surgery Dr. Jonas-ortho Medical/Family history review Reviewed and updated problem list, medical/surgical/family/ social history, medications, and allergies. Opioid use review Opioid Medications (last 90 days) 10/12/2023 00:00 Opioid Medications hydrocodone/acetaminophe n 3 tablet PRN ORAL (5-325 mg tab) No sig Details Patient-reported medication Prescribed No opioid use on file in the last 90 days Does patient have risk factors for opioid abuse? No Pain overview Current pain concerns and treatment plan reviewed. Patient under the care of a specialist. Anxiety/Depression screening PHQ-2 Score: 0 Recommendation: no further intervention at this time Cognitive screening Mini Cog Score: 3 Cognitive screening reviewed and No further action needed (score 3-5). Functional Observation Was the patient's Timed Up AND Go test unsteady or ? 12 seconds? Yes Advance Care Planning Surrogate decision maker and/or advance care plan documented FULL CODE Measurements BP 132/70[recheck[ Pulse 84 Resp 16 Wt 203 lb 6.4 oz (92.3kg) SpO2 98% Vision Screening: Right: 20/40 Left: 20/ 50 Both: 20/40 ASSESSMENT/PLAN: 1. Medicare annual wellness visit, subsequent - ICD9: V70.0, ICD10: Z00.00 (primary diagnosis)Medicare annual wellness visit, subsequent (Z00.00) - Counseled on healthy diet and regular exercise - Fall avoidance information provided - Personalized prevention plan provided 2. Osteopenia, unspecified location - ICD9: 733.90, ICD10: M85.80 - continue tx with Reclast - Reviewed the need for Calcium and Vitamin D supplements and weight bearing exercise as tolerated 3. Unsteady gait when walking - ICD9: 781.2, ICD10: R26.81 Referral to PT to help with balance and strength. - CONSULT TO PHYSICAL THERAPY 4. At high risk for falls - ICD9: V15.88, ICD10: Z91.81 Referral to PT to help with balance and strength. - CONSULT TO PHYSICAL THERAPY 5. Encounter for immunization - ICD9: V03.89, ICD10: Z23 - [place] COVID-19 VACCINE ( SEASON) AGE 12+ YR 6. Decreased visual acuity - ICD9: 369.9, ICD10: H54.7 F/u with optho. MD Brii Thomas Christopher B, MD 01/09/2024 2:21 PM Addendum Please schedule your DXA scan out front before you leave today. Screening schedule The following prevention plan is recommended: Advance Directive Discussion Never done Behavioral Health Screening Never done Bone Density Screening due on 09/11/2023 Covid-19 Vaccine( season) due on 10/18/2023 WHAT YOU CAN DO TO PREVENT FALLS Many falls can be prevented. By making some changes, you can lower your chances of falling. Four things YOU can do to prevent falls for you* and your caregiver 1. Begin a regular exercise program Exercise is one of the most important ways to lower your chances of falling. It makes you stronger and helps you feel better. Exercises that improve balance and coordination (like Solo Chi) are the most helpful. Lack of exercise leads to weakness and increases your chances of falling. Ask your doctor or health care provider about the best type of exercise program for you. 2. Have your health care provider review your medicines Have your doctor or pharmacist review all the medicines yo (more content not included)... Normal [facility] CNOVon 01-02-2024 CNOV Office Visit (ORMDNA ) -------- JANAY FREDERICK ([id number]) 1950 F Date Time Provider Department 01/02/24 3:20 PM ARNOL JONAS During your visit today, we recorded the following information about you: Arnol Jonas MD 01/14/2024 8:15 AM Signed Patient presents for hyaluronic acid gel injection. History and exam are otherwise unchanged. Large Joint Arthro/Inj: R knee joint Informed Consent Consent Obtained: Verbal [facility] Protocol A moment to CARE was completed. [...] assessment and interventions applicable. No implant(s) inserted. 01/02/2024 3:31 PM The procedure site was prepped in the usual sterile fashion. Site: R knee joint Medications: 3 mL hyaluronate sodium, stabilized 60 mg/3 mL Outcome: Tolerated well, no immediate complications Post-injection instructions were reviewed with the patient and the patient voiced understanding of these instructions. SIGN OUT No specimen collected. No instruments, equipment or retained foreign bodies applicable. Post-procedure follow-up management communicated and Plan of Care Visit completed when applicable Referring Provider: ARNOL JONAS [[id number]] Allergies As of Date: 01/02/2024 Noted Allergy Reaction FLAGYL (METRONIDAZOLE) 03/26/2017 8 - GI Upset Comments: Severe nausea, malaise, dizziness HCTZ (THIAZIDES) 08/14/2015 14 - Other: See Comments Comments: hypercalcemia Date Reviewed: 01/02/2024 Reviewed by: Maisha Huffman OCCA - Fully Assessed Reason for Visit: Follow Up [171] Cmt: Durolane injection Primary Visit Diagnosis:Primary osteoarthritis of right knee [M17.11] Order(s):Large Joint Arthro/Inj: R knee joint [WGY662] Order #: [id number] [] hyaluronate sodium, stabilized syrg 3 mL (DUROLANE)Disp: Rfl: Prescriptions as of 01/14/2024 - furosemide (LASIX) 40 mg tablet Take 1 tablet by mouth once daily. - potassium chloride 20 mEq/15 mL solution Take 30 mL by mouth once daily. - dilTIAZem CD (CARTIA XT) 300 mg 24 hr capsule Take 1 capsule by mouth once daily. - hydrocortisone 2.5 % ointment Apply to affected area two times a day as needed (hemorrhoids). - omeprazole (PRILOSEC) 40 mg capsule Take 1 capsule by mouth once daily. - atorvastatin (LIPITOR) 10 mg tablet Take 1 tablet by mouth once daily. Discontinue simvastatin - gabapentin (NEURONTIN) 300 mg capsule Take 1 capsule by mouth once daily for 90 days. - tolterodine ER (DETROL LA) 4 mg 24 hr capsule Take 1 capsule by mouth once daily. - amitriptyline (ELAVIL) 75 mg tablet Take 1 tablet by mouth daily at bedtime. - famotidine (PEPCID) 20 mg tablet Take 1 tablet by mouth at bedtime as needed. - COMPRESSION HOSIERY KNEE LENGTH, AD, 30-40 MMHG once daily. - ykovaef-etsobouih-gngiza n D3 500 mg-5 mcg (200 unit) per tablet Take 1 tablet by mouth three times daily. - zoledronic acid (RECLAST) 5 mg/100 mL pgbk PREMIX piggyback Inject 100 mL intravenously one time only for 1 dose. - HYDROcodone-acetaminophe n (NORCO) 5-325 mg per tablet Take 3 tablets by mouth as needed. - cholecalciferol (VITAMIN D3) 50 mcg (2,000 unit) tablet Take 2,000 Units by mouth once daily. - multivitamin tablet Take 1 tablet by mouth once daily. 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 01/16/2016 BLUE NEVUS NOSE [D23.30] 08/15/2005 Acute, but ill-defined, cerebrovascular disease* 09/19/2017 Unspecified hemorrhoids without mention of comp* 01/16/2016 Vitamin D deficiency [E55.9] 02/11/2009 Leiomyoma of uterus, unspecified [D25.9] 02/11/2009 10/24/2018 Morbid obesity (HCC) [E66.01] 12/20/2009 01/31/2023 Gastric ulcer with obstruction [K25.9] 12/20/2009 10/24/2018 Osteoarth NOS-l/leg [MDG4721] 06/29/2010 Degenerative arthritis of left knee [M17.12] 02/07/2012 Pes anserinus bursitis of left knee [M70.52] 05/26/2012 Osteopenia [M85.80] 08/31/2013 HLD (hyperlipidemia) [E78.5] 02/14/2014 OAB (overactive bladder) [N32.81] 02/14/2014 Left spastic hemiparesis (HCC) [G81.14] 03/16/2014 Special screening for malignant neoplasms, colo*02/24/2015 10/24/2018 Primary osteoarthritis involving multiple joint*08/14/2015 Difficulty swallowing solids [R13.10] 10/20/2015 10/24/2018 Cerebrovascular accident (CVA) due to thrombosi*04/13/2016 Chronic bilateral low back pain without sciatic*04/13/2016 Incomplete uterovagi (more content not included)... Normal [facility] Large Joint Arthro/Inj: R kn ee jointon 01-02-2024 Arnol Jonas MD 01/14/2024 8:15 AM Large Joint Arthro/Inj: R knee joint Informed Consent Consent Obtained: Verbal [facility] Protocol A moment to CARE was completed. [...] assessment and interventions applicable. No implant(s) inserted. 01/02/2024 3:31 PM The procedure site was prepped in the usual sterile fashion. Site: R knee joint Medications: 3 mL hyaluronate sodium, stabilized 60 mg/3 mL Outcome: Tolerated well, no immediate complications Post-injection instructions were reviewed with the patient and the patient voiced understanding of these instructions. SIGN OUT No specimen collected. No instruments, equipment or retained foreign bodies applicable. Post-procedure follow-up management communicated and Plan of Care Visit completed when applicable [facility] 11-26-2023 LENAN Telephone (ORMDNA) -------- JANAY FREDERICK ([id number]) 1950 F Date Time Provider Department 11/26/23 MANUEL DAO During your visit today, we recorded the following information about you: Manuel Dao APRN.[employer] 11/26/2023 11:09 AM Signed I called and spoke with Tamara. Did discuss repeat request for gel injections. She reports her last injection with Dr. Jonas was in May. She reported great relief with the injection into July. She noticed it started wearing off at that time but felt it was still helping. Discussed will attempt to get approval for repeat injection and our office will contact her for an appointment if approved. Manuel Dao APRN.[employer] November 26, 2023 11:09 AM Allergies As of Date: 11/26/2023 Noted Allergy Reaction FLAGYL (METRONIDAZOLE) 03/26/2017 8 - GI Upset Comments: Severe nausea, malaise, dizziness HCTZ (THIAZIDES) 08/14/2015 14 - Other: See Comments Comments: hypercalcemia Date Reviewed: 08/14/2023 Reviewed by: Mickie Green MA - Fully Assessed Reason for Visit: Patient Update [1234] Prescriptions as of 12/02/2023 - omeprazole (PRILOSEC) 40 mg capsule Take 1 capsule by mouth once daily. - atorvastatin (LIPITOR) 10 mg tablet Take 1 tablet by mouth once daily. Discontinue simvastatin - gabapentin (NEURONTIN) 300 mg capsule Take 1 capsule by mouth once daily for 90 days. - tolterodine ER (DETROL LA) 4 mg 24 hr capsule Take 1 capsule by mouth once daily. - amitriptyline (ELAVIL) 75 mg tablet Take 1 tablet by mouth daily at bedtime. - famotidine (PEPCID) 20 mg tablet Take 1 tablet by mouth at bedtime as needed. - COMPRESSION HOSIERY KNEE LENGTH, AD, 30-40 MMHG once daily. - potassium chloride 20 mEq/15 mL solution Take 30 mL by mouth once daily. - furosemide (LASIX) 40 mg tablet Take 1 tablet by mouth once daily. - hydrocortisone 2.5 % ointment Apply to affected area twice daily as needed (hemorrhoids). - acetaminophen (TYLENOL) 500 mg tablet Take 1 tablet by mouth every 6 hours as needed for pain. - jfkbvgu-pioqhkhen-tuweye n D3 500 mg-5 mcg (200 unit) per tablet Take 1 tablet by mouth three times daily. - dilTIAZem CD (CARTIA XT) 300 mg 24 hr capsule Take 1 capsule by mouth once daily. - zoledronic acid (RECLAST) 5 mg/100 mL pgbk PREMIX piggyback Inject 100 mL intravenously one time only for 1 dose. - HYDROcodone-acetaminophe n (NORCO) 5-325 mg per tablet Take 3 tablets by mouth as needed. - docusate sodium (COLACE) 100 mg capsule Take 1 capsule by mouth twice daily. - cholecalciferol (VITAMIN D3) 50 mcg (2,000 unit) tablet Take 2,000 Units by mouth once daily. - multivitamin tablet Take 1 tablet by mouth once daily. 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 01/16/2016 BLUE NEVUS NOSE [D23.30] 08/15/2005 Acute, but ill-defined, cerebrovascular disease* 09/19/2017 Unspecified hemorrhoids without mention of comp* 01/16/2016 Vitamin D deficiency [E55.9] 02/11/2009 Leiomyoma of uterus, unspecified [D25.9] 02/11/2009 10/24/2018 Morbid obesity (HCC) [E66.01] 12/20/2009 01/31/2023 Gastric ulcer with obstruction [K25.9] 12/20/2009 10/24/2018 Osteoarth NOS-l/leg [DBP3619] 06/29/2010 Degenerative arthritis of left knee [M17.12] 02/07/2012 Pes anserinus bursitis of left knee [M70.52] 05/26/2012 Osteopenia [M85.80] 08/31/2013 HLD (hyperlipidemia) [E78.5] 02/14/2014 OAB (overactive bladder) [N32.81] 02/14/2014 Left spastic hemiparesis (HCC) [G81.14] 03/16/2014 Special screening for malignant neoplasms, colo*02/24/2015 10/24/2018 Primary osteoarthritis involving multiple joint*08/14/2015 Difficulty swallowing solids [R13.10] 10/20/2015 10/24/2018 Cerebrovascular accident (CVA) due to thrombosi*04/13/2016 Chronic bilateral low back pain without sciatic*04/13/2016 Incomplete uterovaginal prolapse [N81.2] 11/01/2016 Pelvic organ prolapse quantification stage 2 cy*06/10/2017 Dysphagia [R13.10] 07/09/2017 10/24/2018 Gastric band slippage [K95.09] 07/09/2017 06/26/2018 Preop testing [Z01.818] 10/11/2017 06/26/2018 Venous incompetence [I87.2] Hypercalcemia [E83.52] 05/13/2021 Osteoporosis [M81.0] 05/13/2021 Obesity, Class III, BMI 40-49.9 (morbid obesity*07/27/2021 Hyperparathyroidism (HCC) [E21.3] 07/27/2021 Migraine without aura [G43.009] 02/02/2022 Insomnia [G47.00] 02/02/2022 01/31/2023 GERD (gastroesophageal reflux disease) [K21.9] 01/31/2023 Episode of recurrent major depressive disorder *02/12/2023 06/19/2023 Encounter Status:Closed [facility]GEOVANNAMDNA[facility] -------- JANAY FREDERICK ([id number]) 1950 F Date Time Provider Department 11/15/23 ARNOL JONAS During your visit today, we recorded the following information about you: Cristiana Wolff 11/15/2023 3:41 PM Signed Patient would like to make an appt with Dr. Jonas for gel injections again. Antonio Bean, RN 11/18/2023 8:50 AM Signed Gel injection referral submitted for Durolane for right knee. Declan Rueda 11/22/2023 9:18 AM Signed === PHARMACY TEAM ==== ADDITIONAL INFORMATION NEEDED/REQUESTED Additional Information Needed: patient update needed describing patient positive response to durolane injection from 05/2023 for prior auth renewal Ita Ferrera 12/02/2023 9:52 AM Signed Patient's insurance has authorized Durolane gel injections(s) for the patient's right knee. Patient last had an injection of Durolane on 05/28/23. These injections can be scheduled now. These are scheduled once a week for 1 week(s) in a row. These can be scheduled with or Abebe Dao for a sooner appointment. Allergies As of Date: 11/15/2023 Noted Allergy Reaction FLAGYL (METRONIDAZOLE) 03/26/2017 8 - GI Upset Comments: Severe nausea, malaise, dizziness HCTZ (THIAZIDES) 08/14/2015 14 - Other: See Comments Comments: hypercalcemia Date Reviewed: 08/14/2023 Reviewed by: Mickie Green MA - Fully Assessed Reason for Visit: Appointment [186] Insurance Authorization [[id number]] Cmt: Prior Auth Delayed: Additional Info Needed ([facility]) Prescriptions as of 12/02/2023 - omeprazole (PRILOSEC) 40 mg capsule Take 1 capsule by mouth once daily. - atorvastatin (LIPITOR) 10 mg tablet Take 1 tablet by mouth once daily. Discontinue simvastatin - gabapentin (NEURONTIN) 300 mg capsule Take 1 capsule by mouth once daily for 90 days. - tolterodine ER (DETROL LA) 4 mg 24 hr capsule Take 1 capsule by mouth once daily. - amitriptyline (ELAVIL) 75 mg tablet Take 1 tablet by mouth daily at bedtime. - famotidine (PEPCID) 20 mg tablet Take 1 tablet by mouth at bedtime as needed. - COMPRESSION HOSIERY KNEE LENGTH, AD, 30-40 MMHG once daily. - potassium chloride 20 mEq/15 mL solution Take 30 mL by mouth once daily. - furosemide (LASIX) 40 mg tablet Take 1 tablet by mouth once daily. - hydrocortisone 2.5 % ointment Apply to affected area twice daily as needed (hemorrhoids). - acetaminophen (TYLENOL) 500 mg tablet Take 1 tablet by mouth every 6 hours as needed for pain. - uyvnvbm-oakfwkxkj-ejxuge n D3 500 mg-5 mcg (200 unit) per tablet Take 1 tablet by mouth three times daily. - dilTIAZem CD (CARTIA XT) 300 mg 24 hr capsule Take 1 capsule by mouth once daily. - zoledronic acid (RECLAST) 5 mg/100 mL pgbk PREMIX piggyback Inject 100 mL intravenously one time only for 1 dose. - HYDROcodone-acetaminophe n (NORCO) 5-325 mg per tablet Take 3 tablets by mouth as needed. - docusate sodium (COLACE) 100 mg capsule Take 1 capsule by mouth twice daily. - cholecalciferol (VITAMIN D3) 50 mcg (2,000 unit) tablet Take 2,000 Units by mouth once daily. - multivitamin tablet Take 1 tablet by mouth once daily. 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 01/16/2016 BLUE NEVUS NOSE [D23.30] 08/15/2005 Acute, but ill-defined, cerebrovascular disease* 09/19/2017 Unspecified hemorrhoids without mention of comp* 01/16/2016 Vitamin D deficiency [E55.9] 02/11/2009 Leiomyoma of uterus, unspecified [D25.9] 02/11/2009 10/24/2018 Morbid obesity (HCC) [E66.01] 12/20/2009 01/31/2023 Gastric ulcer with obstruction [K25.9] 12/20/2009 10/24/2018 Osteoarth NOS-l/leg [TTE0236] 06/29/2010 Degenerative arthritis of left knee [M17.12] 02/07/2012 Pes anserinus bursitis of left knee [M70.52] 05/26/2012 Osteopenia [M85.80] 08/31/2013 HLD (hyperlipidemia) [E78.5] 02/14/2014 OAB (overactive bladder) [N32.81] 02/14/2014 Left spastic hemiparesis (HCC) [G81.14] 03/16/2014 Special screening for malignant neoplasms, colo*02/24/2015 10/24/2018 Primary osteoarthritis involving multiple joint*08/14/2015 Difficulty swallowing solids [R13.10] 10/20/2015 10/24/2018 Cerebrovascular accident (CVA) due to thrombosi*04/13/2016 Chronic bilateral low back pain without sciatic*04/13/2016 Incomplete uterovaginal prolapse [N81.2] 11/01/2016 Pelvic organ prolapse quantification stage 2 cy*06/10/2017 Dysphagia [R13.10] 07/09/2017 10/24/2018 Gastric band slippage [K95.09] 07/09/2017 06/26/2018 Preop testing [Z01.818] 10/11/2017 06/26/2018 Venous incompetence [I87.2] Hypercalcemia [E83.52] 05/13/2021 Osteoporosis [M81.0] 05/13/2021 Obesity, Class III, BMI 40-49.9 (morbid obesity*07/27/2021 Hyperparathyroidism (HCC) [E21.3] 07/27/2021 Migraine without aura [G43.009] 02/02/2022 Insomnia [G47.00] 02/02/2022 01/31/2023 GERD (gastroesophageal reflux disea (more content not included)... Normal [facility] 25(OH)D3 [facility] 2023 25-hydroxyvitamin D3 [Mass/Vol] 73.0 ng/mL Normal 31.0-80.0 [facility] Comment on above: Order Comment: Speci men Type: BLOOD SPECIMENOrdering Facility: [facility] Address: [address] [place] [address] Result Comment: Clas sification of 25 [place] Vitamin D status: Deficiency/Insufficiency: < or = 30 ng/ml. Sufficiency/Optimal Levels: 31-80 ng/mL Toxicity: > 100 ng/mL. Test performed by chemiluminescent immunoassay. Performed By: #### 1 989-3 ####[facility] [id number] [address] [address] [place] Comprehensive metabolic 2000 panelon 08-28-2023 Albumin [Mass/Vol] 4.1 g/dL Normal 3.9-4.9 [facility] Comment on above: Order Comment: Speci men Type: BLOOD SPECIMENOrdering Facility: [facility] Address: [address] [place] [address] Performed By: #### 2 4323-8, 53054-9, 2731-02 ####[facility] [id number] [place] [address] [place] ALP [Catalytic activity/Vol] 100 U/L Normal 34-123 [facility] Comment on above: Order Comment: Speci men Type: BLOOD SPECIMENOrdering Facility: [facility] Address: [address] [place] [address] Performed By: #### 2 4323-8, 67016-3, 2731-02 ####[facility] [id number] [address] [address] [place] ALT [Catalytic activity/Vol] 15 U/L Normal 7-38 [facility] Comment on above: Order Comment: Speci men Type: BLOOD SPECIMENOrdering Facility: [facility] Address: [address] [place] [address] Performed By: #### 2 4323-8, 37612-9, 8 ####[facility] [id number] [place] [address] [place] Anion gap [Moles/Vol] 11 mmol/L Normal 9-18 [facility] Comment on above: Order Comment: Speci men Type: BLOOD SPECIMENOrdering Facility: [facility] Address: [address] [place] [address] Performed By: #### 2 4323-8, 83391-1, 2731-02 ####[facility] [id number] [place] [address] [place] AST [Catalytic activity/Vol] 18 U/L Normal 13-35 [facility] Comment on above: Order Comment: Speci men Type: BLOOD SPECIMENOrdering Facility: [facility] Address: [address] [place] [address] Performed By: #### 2 4323-8, 60691-9, 2731-02 ####[facility] [id number] [place] [address] [place] Bilirubin [Mass/Vol] 0.3 mg/dL Normal 0.2-1.3 [facility] Comment on above: Order Comment: Speci men Type: BLOOD SPECIMENOrdering Facility: [facility] Address: [address] [place] [address] Performed By: #### 2 4323-8, 25896-1, 2731-02 ####[facility] [id number] [place] [address] [place] Calcium [Mass/Vol] 9.2 mg/dL Normal 8.5-10.2 [facility] Comment on above: Order Comment: Speci men Type: BLOOD SPECIMENOrdering Facility: [facility] Address: [address] [place] [address] Performed By: #### 2 4323-8, 56422-1, 2731-02 ####[facility] [id number] [place] [address] [place] Chloride [Moles/Vol] 105 mmol/L Normal 97-105 [facility] Comment on above: Order Comment: Speci men Type: BLOOD SPECIMENOrdering Facility: [facility] Address: [address] [place] [address] Performed By: #### 2 4323-8, 34228-3, 2738 ####[facility]IA [id number] [place] [address] [place] CO2 [Moles/Vol] 28 mmol/L Normal 22-30 [facility] Comment on above: Order Comment: Speci men Type: BLOOD SPECIMENOrdering Facility: [facility] Address: [address] [place] [address] Performed By: #### 2 4323-8, 48031-0, 8 ####[facility]IA [id number] [place] [address] [place] Creatinine [Mass/Vol] 0.59 mg/dL Normal 0.58-0.96 [facility] Comment on above: Order Comment: Speci men Type: BLOOD SPECIMENOrdering Facility: [facility] Address: [address] [place] [address] Performed By: #### 2 4323-8, 80256-1, 8 ####[facility] [id number] [place] [address] [place] Creatinine and Glomerular filtration rate.predicted panel (S/P/Bld) 94 mL/min/1.73m??? Normal >=60 [facility] Comment on above: Order Comment: Speci men Type: BLOOD SPECIMENOrdering Facility: [facility] Address: [address] [place] [address] Result Comment: Sadaf mated Glomerular Filtration Rate (eGFR) is calculated using the 2020 CKD-EPI creatinine equation. This equation utilizes serum creatinine, sex, and age as parameters. The creatinine assay has traceable calibration to isotope dilution-mass spectrometry. Refer to KDIGO guidelines for clinical interpretation. In patients with unstable renal function, e.g. those with acute kidney injury, the eGFR may not accurately reflect actual GFR. Performed By: #### 2 4323-8, , 2731-02 ####[facility] [id number] [address] [address] [place] Glucose [Mass/Vol] 87 mg/dL Normal 74-99 [facility] Comment on above: Order Comment: Lon harris Type: BLOOD SPECIMENOrdering Facility: [facility] Address: [address] [place] [address] Result Comment: The [place] Diabetes Association (ADA) provides guidance for cutoff values for fasting glucose and random glucose. The ADA defines fasting as no caloric intake for at least 8 hours. Fasting plasma glucose results between 100 to 125 mg/dL indicate increased risk for diabetes (prediabetes). Fasting plasma glucose results greater than or equal to 126 mg/dL meet the criteria for diagnosis of diabetes. In the absence of unequivocal hyperglycemia, results should be confirmed by repeat testing. In a patient with classic symptoms of hyperglycemia or hyperglycemic crisis, random plasma glucose results greater than or equal to 200 mg/dL meet the criteria for diagnosis of diabetes. Reference: Standards of Medical Care in Diabetes 2016, [place] Diabetes Association. Diabetes Care. 2016.39(Suppl 1). Performed By: #### 2 432-8, , 2731-02 ####[facility] [id number] [facility] [address] [address] [place] Potassium [Moles/Vol] 4.3 mmol/L Normal 3.7-5.1 [facility] Comment on above: Order Comment: Lon harris Type: BLOOD SPECIMENOrdering Facility: [facility] Address: [address] [place] [address] Performed By: #### 2 432-8, , 2731-02 ####[facility] [id number] [facility] [address] [address] [place] Protein [Mass/Vol] 6.2 g/dL Low 6.3-8.0 [facility] Comment on above: Order Comment: Speci men Type: BLOOD SPECIMENOrdering Facility: [facility] Address: [address] [place] [address] Performed By: #### 2 4323-8, 22143-9, 2731-02 ####[facility] [id number] [address] [address] [place] Sodium [Moles/Vol] 144 mmol/L Normal 136-144 [facility] Comment on above: Order Comment: Speci men Type: BLOOD SPECIMENOrdering Facility: [facility] Address: [address] [place] [address] Performed By: #### 2 4323-8, , 2731-02 ####[facility] [id number] [place] [address] [place] Urea nitrogen [Mass/Vol] 11 mg/dL Normal 7-21 [facility] Comment on above: Order Comment: Speci men Type: BLOOD SPECIMENOrdering Facility: [facility] Address: [address] [place] [address] Performed By: #### 2 4323-8, , 2731-02 ####[facility] [id number] [address] [address] [place] Lipid 1996 panelon 4 Cholesterol [Mass/Vol] 176 mg/dL Normal <200 [facility] Comment on above: Order Comment: Speci men Type: BLOOD SPECIMENOrdering Facility: [facility] Address: [address] [place], [place] [address] Result Comment: <200 mg/dL, Desirable 200-239 mg/dL, Borderline high >239 mg/dL, High Performed By: #### 2 4323-8, 46166-2, 2731-02 ####[facility] [id number] [address] [address] [place] Cholesterol in HDL [Mass/Vol] 81 mg/dL Normal >39 [facility] Comment on above: Order Comment: Speci men Type: BLOOD SPECIMENOrdering Facility: [facility] Address: [address] [place] [address] Result Comment: 40-5 9 mg/dL, Acceptable >59 mg/dL, High: Negative risk factor for coronary heart disease <40 mg/dL, Low: Positive risk factor for coronary heart disease Performed By: #### 2 4323-8, 53419-5, 2731-02 ####[facility] [id number] [place] [address] [place] Cholesterol in LDL [Mass/Vol] 81 mg/dL Normal <100 [facility] Comment on above: Order Comment: Tinyadrián harris Type: BLOOD SPECIMENOrdering Facility: [facility] Address: [address] [place] [address] Result Comment: <100 mg/dL, Optimal 100-129 mg/dL, Near optimal/above optimal 130-159 mg/dL, Borderline high 160-189 mg/dL, High >189 mg/dL, Very high Secondary prevention optimal LDL Cholesterol levels are recommended to be < 70 mg/dL Performed By: #### 2 4323-8, 40477-4, 2731-02 ####[facility] [id number] [address] [place] Cholesterol in LDL/Cholesterol in HDL [Mass ratio] 1.00 {ratio} Normal <2.54 [facility] Comment on above: Order Comment: Tinyi steven Type: BLOOD SPECIMENOrdering Facility: [facility] Address: [address] [place] [address] Result Comment: Refe rence: 1. National Cholesterol Education Program ATP III Guideline At-A-Glance Quick Desk Reference: National Heart, Lung, and Blood [place]. National Institutes of Health. 2001: NIH Publication No. 01-3305. 2. An International Atherosclerosis Society position paper: global recommendations for the management of dyslipidemia: executive summary, Atherosclerosis. 2014: 232(2):410-413. Performed By: #### 2 4323-8, 90147-2, 2731-02 ####[facility] [id number] [address] [address] [place] Cholesterol in VLDL [Mass/Vol] 14 mg/dL Normal <30 [facility] Comment on above: Order Comment: Speci men Type: BLOOD SPECIMENOrdering Facility: [facility] Address: [address] [place] [address] Performed By: #### 2 4323-8, , 2731-02 ####[facility] [id number] [address] [address] [place] Cholesterol non HDL [Mass/Vol] 95 mg/dL Normal <130 [facility] Comment on above: Order Comment: Speci men Type: BLOOD SPECIMENOrdering Facility: [facility] Address: [address] [place] [address] Result Comment: <130 mg/dL, Optimal 130-159 mg/dL, Near optimal/above optimal 160-189 mg/dL, Borderline high 190-219 mg/dL, High >219 mg/dL, Very high Secondary prevention optimal non HDL Cholesterol levels are recommended to be <100 mg/dL Performed By: #### 2 4323-8, , 2731-02 ####[facility] [id number] [address] [address] [place] Cholesterol.total/C holesterol in HDL [Mass ratio] 2.17 {ratio} Normal <5.10 [facility] Comment on above: Order Comment: Speci men Type: BLOOD SPECIMENOrdering Facility: [facility] Address: [address] [place], [place] [address] Performed By: #### 2 4323-8, , 2731-02 ####[facility] [id number] [address] [address] [place] FASTING TIME 12 hrs Normal [facility] Comment on above: Order Comment: Speci men Type: BLOOD SPECIMENOrdering Facility: [facility] Address: [address] [place] [address] Performed By: #### 2 4323-8, 52566-1, 2731-02 ####[facility] [id number] [place] [address] [place] Triglyceride [Mass/Vol] 70 mg/dL Normal <150 [facility] Comment on above: Order Comment: Speci men Type: BLOOD SPECIMENOrdering Facility: [facility] Address: [address] [place] [address] Result Comment: <150 mg/dL, Normal 150-199 mg/dL, Borderline high 200-499 mg/dL, High >499 mg/dL, Very high Performed By: #### 2 4323-8, 04434-6, 2731-02 ####[facility] [id number] [address] [place] PTH[facility] Parathyrin.intact [Mass/Vol] 63 pg/mL Normal 15-65 [facility] Comment on above: Order Comment: Speci men Type: BLOOD SPECIMENOrdering Facility: [facility] Address: [address] [place] [address] Performed By: #### 2 4323-8, 15389-2, 2731-02 ####[facility] LABIA [id number] [address] [place] CNPAnne 08-16-2023 CNPN Telephone (FAMPWS) -------- AJNAY FREDERICK ([id number]) 1950 F Date Time Provider Department 08/16/23 [facility] During your visit today, we recorded the following information about you: Jeff Gotti RN 08/16/2023 3:07 PM Signed Joanne calling from [employer] in regards to prescription sent over yesterday for compression stockings. Joanne states with the current dx code, insurance is not covering them. She states last July when a prescription order was sent over the dx code used was venous insufficiency and the stockings were covered. Joanne asking if that dx still applies to pt. Per problem list and medical hx, pt has a dx of venous incompetence. Instructed Joanne that it would be okay to use dx code for venous insufficiency. If this does not apply, will need to call her back. Shorty Teresa MD 08/19/2023 8:14 AM Signed Yes, we can use this same diagnosis code of venous insufficiency. Allergies As of Date: 08/16/2023 Noted Allergy Reaction FLAGYL (METRONIDAZOLE) 03/26/2017 8 - GI Upset Comments: Severe nausea, malaise, dizziness HCTZ (THIAZIDES) 08/14/2015 14 - Other: See Comments Comments: hypercalcemia Date Reviewed: 08/14/2023 Reviewed by: Mickie Green MA - Fully Assessed Reason for Visit: updated dx code for compression stockings [Other] Prescriptions as of 08/19/2023 - COMPRESSION HOSIERY KNEE LENGTH, AD, 30-40 MMHG once daily. - nitrofurantoin monohydrate and macrocrystal (MACROBID) 100 mg capsule Take 1 capsule by mouth two times a day with meals for 5 days. - potassium chloride 20 mEq/15 mL solution Take 30 mL by mouth once daily. - famotidine (PEPCID) 20 mg tablet Take 1 tablet by mouth at bedtime as needed. - furosemide (LASIX) 40 mg tablet Take 1 tablet by mouth once daily. - gabapentin (NEURONTIN) 300 mg capsule Take 1 capsule by mouth once daily for 90 days. - omeprazole (PRILOSEC) 40 mg capsule Take 1 capsule by mouth once daily. - tolterodine ER (DETROL LA) 4 mg 24 hr capsule Take 1 capsule by mouth once daily. - atorvastatin (LIPITOR) 10 mg tablet Take 1 tablet by mouth once daily. Discontinue simvastatin - amitriptyline (ELAVIL) 75 mg tablet Take 1 tablet by mouth daily at bedtime. - hydrocortisone 2.5 % ointment Apply to affected area twice daily as needed (hemorrhoids). - acetaminophen (TYLENOL) 500 mg tablet Take 1 tablet by mouth every 6 hours as needed for pain. - qjulumy-zolbbljzt-wcchlw n D3 500 mg-5 mcg (200 unit) per tablet Take 1 tablet by mouth three times daily. - dilTIAZem CD (CARTIA XT) 300 mg 24 hr capsule Take 1 capsule by mouth once daily. - zoledronic acid (RECLAST) 5 mg/100 mL pgbk PREMIX piggyback Inject 100 mL intravenously one time only for 1 dose. - HYDROcodone-acetaminophe n (NORCO) 5-325 mg per tablet Take 3 tablets by mouth as needed. - docusate sodium (COLACE) 100 mg capsule Take 1 capsule by mouth twice daily. - cholecalciferol (VITAMIN D3) 50 mcg (2,000 unit) tablet Take 2,000 Units by mouth once daily. - multivitamin tablet Take 1 tablet by mouth once daily. 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 01/16/2016 BLUE NEVUS NOSE [D23.30] 08/15/2005 Acute, but ill-defined, cerebrovascular disease* 09/19/2017 Unspecified hemorrhoids without mention of comp* 01/16/2016 Vitamin D deficiency [E55.9] 02/11/2009 Leiomyoma of uterus, unspecified [D25.9] 02/11/2009 10/24/2018 Morbid obesity (HCC) [E66.01] 12/20/2009 01/31/2023 Gastric ulcer with obstruction [K25.9] 12/20/2009 10/24/2018 Osteoarth NOS-l/leg [IEY5607] 06/29/2010 Degenerative arthritis of left knee [M17.12] 02/07/2012 Pes anserinus bursitis of left knee [M70.52] 05/26/2012 Osteopenia [M85.80] 08/31/2013 HLD (hyperlipidemia) [E78.5] 02/14/2014 OAB (overactive bladder) [N32.81] 02/14/2014 Left spastic hemiparesis (HCC) [G81.14] 03/16/2014 Special screening for malignant neoplasms, colo*02/24/2015 10/24/2018 Primary osteoarthritis involving multiple joint*08/14/2015 Difficulty swallowing solids [R13.10] 10/20/2015 10/24/2018 Cerebrovascular accident (CVA) due to thrombosi*04/13/2016 Chronic bilateral low back pain without sciatic*04/13/2016 Incomplete uterovaginal prolapse [N81.2] 11/01/2016 Pelvic organ prolapse quantification stage 2 cy*06/10/2017 Dysphagia [R13.10] 07/09/2017 10/24/2018 Gastric band slippage [K95.09] 07/09/2017 06/26/2018 Preop testing [Z01.818] 10/11/2017 06/26/2018 Venous incompetence [I87.2] Hypercalcemia [E83.52] 05/13/2021 Osteoporosis [M81.0] 05/13/2021 Obesity, Class III, BMI 40-49.9 (morbid obesity*07/27/2021 Hyperparathyroidism (HCC) [E21.3] 07/27/2021 Migraine without aura [G43.009] 02/02/2022 Insomnia [G47.00] 02/02/2022 01/31/2023 GERD (gastroesophageal reflux disease) [K21.9] more content not included)... Normal [facility] Bacteria Ur Culton 4 Bacteria identified Cx Nom (U) ORGANISM ID: 1 50,000-<100,000 CFU/ml Escherichia coli ORGANISM ID: 1 (ESCHERICHIA COLI) ANTIBIOTIC INTERPRETATION ANNABELLE STATUS REFERENCE RANGE Ampicillin S <=2 F Susceptible <=8 , Intermediate >8 , Resistant >16 Cefazolin S <=4 F Susceptible 0-16 , Intermediate <0 or >16 , Resistant >16 For uncomplicated urinary tract infections, cefazolin results can be used to predict susceptibility or resistance to cephalexin. Ceftriaxone S <=1 F Susceptible <=1 , Intermediate >1 , Resistant >=4 Cefepime S <=1 F Susceptible <=2 , Susceptible-Dose Dependent >2 , Resistant >=16 Ertapenem S <=0.5 F Susceptible <=0.5 , Intermediate >.5 , Resistant >1 Meropenem S <=0.25 F Susceptible <=1 , Intermediate >1 , Resistant >2 Ampicillin/Sulbact S <=2 F Susceptible <=8 , Intermediate >8 , Resistant >16 Piperacillin/Tazobac S <=4 F Susceptible <=16 , Intermediate >16 , Resistant >64 Gentamicin S <=1 F Susceptible <=4 , Intermediate >4 , Resistant >8 Tobramycin S <=1 F Susceptible <=4 , Intermediate >4 , Resistant >8 Trimeth sulfameth S <=20 F Susceptible <=40 , Resistant >40 Ciprofloxacin S <=0.25 F Susceptible <0.5 , Intermediate >=.5 , Resistant >=1 Nitrofurantoin S <=16 F Susceptible <=32 , Intermediate >32 , Resistant >64 Abnormal [facility] Comment on above: Performed By: #### 6 30-4 ####[facility] [id number] [place] [id number] [place] CNOVon 08-14-2023 CNOV Office Visit (FAMPWS ) -------- JANAY FREDERICK ([id number]) 1950 F Date Time Provider Department 08/14/23 11:00 AM SHORTY TERESA During your visit today, we recorded the following information about you: Temperature Pulse Respiration Blood pressure 98.7 degrees 80/minute 16/minute 128/70 Weight 88.9 kg Shorty Teresa MD 08/14/2023 2:45 PM Signed Chief Complaint Patient presents with: Dysuria: Since [...] bladder infection SCC (squamous cell carcinoma) Stroke ([facility]) 12/06/1981 cva left side residual, young [...] 02/24/15 Colonoscopy EGD DILATION GASTRIC/DUODENAL STRICTURE 12/20/09 ESOPHAGOGASTRODUODENOSCO PY TRANSORAL DIAGNOSTIC 11/27/13 EGD HYSTERECTOMY 10/2107 pelvic organ prolapse LAPAROSCOPY SURG CHOLECYSTECTOMY 2005 Cholecystectomy, lap LAPS GASTRIC RESTRICTIVE PROCEDURE PLACE DEVICE 04/21/2010 Performed by THI ALCOCER at [facility] LAPS RPR PARAESPHGL HRNA INCL FUNDPLSTY W/O MESH 04/21/2010 Performed by THI ALCOCER at [facility] MAL LESION FACE,EAR,EYEL 1.1-2CM 01/28/06 Left cheek and right forearm lesions PAST SURGICAL HISTORY OF July 06, 2009 Hysteroscopy DANOK PAST SURGICAL HISTORY OF 10/2017 vaginal vault suspension PAST SURGICAL HISTORY OF 10/2017 Lap band removed UNLIS LAPAROSCOPIC PROCEDURE LIVER 04/21/2010 Performed by THI ALCOCER at [facility] Family History FAMILY HISTORY Problem Relation [...] every 6 hours as needed for pain. hfiieur-hnsbhaaol-dftawq n D3 500 mg-5 mcg (200 unit) per tablet Take 1 tablet by mouth three times daily. dilTIAZem CD (CARTIA XT) 300 mg 24 hr capsule Take 1 capsule by mouth once daily. zoledronic acid (RECLA (more content not included)... Normal [facility] CNPNon 08-13-2023 [facility] Telephone (FAMPWS) -------- JANAY FREDERICK ([id number]) 1950 F Date Time Provider Department 08/13/23 SHORTY TERESA During your visit today, we recorded the following information about you: Jeff Gotti RN 08/13/2023 8:11 AM Signed ----- Message from Shorty Teresa MD sent at 08/13/2023 8:00 AM EST ----- Normal labs. Continue current regimen. Jeff Gotti RN 08/13/2023 8:13 AM Signed Called and left a detailed voicemail notifying patient of providers message. Clinic phone number was left in case patient has any questions. Allergies As of Date: 08/13/2023 Noted Allergy Reaction FLAGYL (METRONIDAZOLE) 03/26/2017 8 - GI Upset Comments: Severe nausea, malaise, dizziness HCTZ (THIAZIDES) 08/14/2015 14 - Other: See Comments Comments: hypercalcemia Date Reviewed: 07/23/2023 Reviewed by: Yael Flores LPN - Fully Assessed Reason for Visit: Results [95] Prescriptions as of 08/13/2023 - potassium chloride 20 mEq/15 mL solution Take 30 mL by mouth once daily. - famotidine (PEPCID) 20 mg tablet Take 1 tablet by mouth at bedtime as needed. - furosemide (LASIX) 40 mg tablet Take 1 tablet by mouth once daily. - gabapentin (NEURONTIN) 300 mg capsule Take 1 capsule by mouth once daily for 90 days. - COMPRESSION HOSIERY KNEE LENGTH, AD, 30-40 MMHG once daily. - omeprazole (PRILOSEC) 40 mg capsule Take 1 capsule by mouth once daily. - tolterodine ER (DETROL LA) 4 mg 24 hr capsule Take 1 capsule by mouth once daily. - atorvastatin (LIPITOR) 10 mg tablet Take 1 tablet by mouth once daily. Discontinue simvastatin - amitriptyline (ELAVIL) 75 mg tablet Take 1 tablet by mouth daily at bedtime. - hydrocortisone 2.5 % ointment Apply to affected area twice daily as needed (hemorrhoids). - acetaminophen (TYLENOL) 500 mg tablet Take 1 tablet by mouth every 6 hours as needed for pain. - kjiygce-jmnkdprbg-dbrvli n D3 500 mg-5 mcg (200 unit) per tablet Take 1 tablet by mouth three times daily. - dilTIAZem CD (CARTIA XT) 300 mg 24 hr capsule Take 1 capsule by mouth once daily. - zoledronic acid (RECLAST) 5 mg/100 mL pgbk PREMIX piggyback Inject 100 mL intravenously one time only for 1 dose. - HYDROcodone-acetaminophe n (NORCO) 5-325 mg per tablet Take 3 tablets by mouth as needed. - docusate sodium (COLACE) 100 mg capsule Take 1 capsule by mouth twice daily. - cholecalciferol (VITAMIN D3) 50 mcg (2,000 unit) tablet Take 2,000 Units by mouth once daily. - multivitamin tablet Take 1 tablet by mouth once daily. 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 01/16/2016 BLUE NEVUS NOSE [D23.30] 08/15/2005 Acute, but ill-defined, cerebrovascular disease* 09/19/2017 Unspecified hemorrhoids without mention of comp* 01/16/2016 Vitamin D deficiency [E55.9] 02/11/2009 Leiomyoma of uterus, unspecified [D25.9] 02/11/2009 10/24/2018 Morbid obesity (HCC) [E66.01] 12/20/2009 01/31/2023 Gastric ulcer with obstruction [K25.9] 12/20/2009 10/24/2018 Osteoarth NOS-l/leg [LAO8721] 06/29/2010 Degenerative arthritis of left knee [M17.12] 02/07/2012 Pes anserinus bursitis of left knee [M70.52] 05/26/2012 Osteopenia [M85.80] 08/31/2013 HLD (hyperlipidemia) [E78.5] 02/14/2014 OAB (overactive bladder) [N32.81] 02/14/2014 Left spastic hemiparesis (HCC) [G81.14] 03/16/2014 Special screening for malignant neoplasms, colo*02/24/2015 10/24/2018 Primary osteoarthritis involving multiple joint*08/14/2015 Difficulty swallowing solids [R13.10] 10/20/2015 10/24/2018 Cerebrovascular accident (CVA) due to thrombosi*04/13/2016 Chronic bilateral low back pain without sciatic*04/13/2016 Incomplete uterovaginal prolapse [N81.2] 11/01/2016 Pelvic organ prolapse quantification stage 2 cy*06/10/2017 Dysphagia [R13.10] 07/09/2017 10/24/2018 Gastric band slippage [K95.09] 07/09/2017 06/26/2018 Preop testing [Z01.818] 10/11/2017 06/26/2018 Venous incompetence [I87.2] Hypercalcemia [E83.52] 05/13/2021 Osteoporosis [M81.0] 05/13/2021 Obesity, Class III, BMI 40-49.9 (morbid obesity*07/27/2021 Hyperparathyroidism (HCC) [E21.3] 07/27/2021 Migraine without aura [G43.009] 02/02/2022 Insomnia [G47.00] 02/02/2022 01/31/2023 GERD (gastroesophageal reflux disease) [K21.9] 01/31/2023 Episode of recurrent major depressive disorder *02/12/2023 06/19/2023 Encounter Status:Closed by JEFF GOTTI on 08/13/23 [facility] Juanis 08-12-2023 CNOV Office Visit (FAMPWS ) -------- JANAY FREDERICK ([id number]) 1950 F Date Time Provider Department 08/12/23 3:40 PM SHORTY TERESA During your visit today, we recorded the following information about you: Pulse Respiration Blood pressure Weight 86/minute 18/minute 136/74 89.3 kg Shorty Teresa MD 08/12/2023 4:59 PM Signed Chief Complaint Patient presents with: Hospital F/U: Discharged from SNF 08/05/23 HPI Janay Frederick is a 73 year old female who presents here today for Hospital Discharge Follow up.. Patient admitted to [facility] from 07/28 to 08/01 after presenting to [...] warm compresses. Discharged to SNF at the [facility] where she resided until 08/05 and was [...] 02/24/15 Colonoscopy EGD DILATION GASTRIC/DUODENAL STRICTURE 12/20/09 ESOPHAGOGASTRODUODENOSCO PY TRANSORAL DIAGNOSTIC 11/27/13 EGD HYSTERECTOMY 10/2107 pelvic organ prolapse LAPAROSCOPY SURG CHOLECYSTECTOMY 2004 Cholecystectomy, lap LAPS GASTRIC RESTRICTIVE PROCEDURE PLACE DEVICE 04/21/2010 Performed by THI ALCOCER at [facility] LAPS RPR PARAESPHGL HRNA INCL FUNDPLSTY W/O MESH 04/21/2010 Performed by THI ALCOCER at [facility] MAL LESION FACE,EAR,EYEL 1.1-2CM 01/28/06 Left cheek and right forearm lesions PAST SURGICAL HISTORY OF July 06, 2009 Hysteroscopy DANOK PAST SURGICAL HISTORY OF 10/2017 vaginal vault suspension PAST SURGICAL HISTORY OF 10/2017 Lap band removed UNLIS LAPAROSCOPIC PROCEDURE LIVER 04/21/2010 Performed by THI ALCOCER at [facility] Family History FAMILY HISTORY Problem Relation Age of Onset Hypertension Mother Diabetes Mother Breast Cancer Mother Heart Mother a fib Diabetes Father Heart Father angioplasty Blood Disease Brother Hairy Cell Leukemia Prostate Cancer Brother Blood Disease Maternal Grandmother Leukemia None Brother Hypertension Maternal Uncle Prostate Cancer Maternal Uncle Hypertension Maternal Aunt Patient Allergies ALLERGIES (more content not included)... Normal [facility] Comprehensive metabolic 2000 panelon 08-12-2023 Albumin [Mass/Vol] 4.2 g/dL Normal 3.9-4.9 [facility] Comment on above: Order Comment: Speci men Type: BLOOD SPECIMENOrdering Facility: [facility] Address: [address] [place] [address] Performed By: #### 2 4323-8 ####[facility] LABCL[facility] [id number] [place] [address] [place] ALP [Catalytic activity/Vol] 112 U/L Normal 34-123 [facility] Comment on above: Order Comment: Speci men Type: BLOOD SPECIMENOrdering Facility: [facility] Address: [address] [place] [address] Performed By: #### 2 4323-8 ####[facility] LABCL[facility] [id number] [place] [address] [place] ALT [Catalytic activity/Vol] 19 U/L Normal 7-38 [facility] Comment on above: Order Comment: Speci men Type: BLOOD SPECIMENOrdering Facility: [facility] Address: [address] [place] [address] Performed By: #### 2 4323-8 ####[facility] LABCLIA [id number] [place] [address] [place] Anion gap [Moles/Vol] 10 mmol/L Normal 9-18 [facility] Comment on above: Order Comment: Speci men Type: BLOOD SPECIMENOrdering Facility: [facility] Address: [address] [place] [address] Performed By: #### 2 4323-8 ####[facility] LABCL[facility] [id number] [place] [address] [place] AST [Catalytic activity/Vol] 23 U/L Normal 13-35 [facility] Comment on above: Order Comment: Speci men Type: BLOOD SPECIMENOrdering Facility: [facility] Address: [address] [place] [address] Performed By: #### 2 4323-8 ####[facility] LABCL[facility] [id number] [place] [address] [place] Bilirubin [Mass/Vol] 0.2 mg/dL Normal 0.2-1.3 [facility] Comment on above: Order Comment: Speci men Type: BLOOD SPECIMENOrdering Facility: [facility] Address: [address] [place] [address] Performed By: #### 2 4323-8 ####[facility]CL[facility] [id number] [place] [address] [place] Calcium [Mass/Vol] 9.8 mg/dL Normal 8.5-10.2 [facility] Comment on above: Order Comment: Speci men Type: BLOOD SPECIMENOrdering Facility: [facility] Address: [address] [place] [address] Performed By: #### 2 4323-8 ####[facility]CL[facility] [id number] [place] [address] [place] Chloride [Moles/Vol] 102 mmol/L Normal 97-105 [facility] Comment on above: Order Comment: Speci men Type: BLOOD SPECIMENOrdering Facility: [facility] Address: [address] [place] [address] Performed By: #### 2 4323-8 ####[facility]CL[facility] [id number] [place] [address] [place] CO2 [Moles/Vol] 28 mmol/L Normal 22-30 [facility] Comment on above: Order Comment: Speci men Type: BLOOD SPECIMENOrdering Facility: [facility] Address: [address] [place] [address] Performed By: #### 2 4323-8 ####[facility]CL[facility] [id number] [place] [address] [place] Creatinine [Mass/Vol] 0.71 mg/dL Normal 0.58-0.96 [facility] Comment on above: Order Comment: Lon harris Type: BLOOD SPECIMENOrdering Facility: [facility] Address: [address] [place] [address] Performed By: #### 2 4323-8 ####[facility] LABIA [id number] [place] [address] [place] [facility] [place] Creatinine and Glomerular filtration rate.predicted panel (S/P/Bld) 89 mL/min/1.73m??? Normal >=60 [facility] Comment on above: Order Comment: Lon harris Type: BLOOD SPECIMENOrdering Facility: [facility] Address: [address] [place] [address] Result Comment: Sadaf mated Glomerular Filtration Rate (eGFR) is calculated using the 2020 CKD-EPI creatinine equation. This equation utilizes serum creatinine, sex, and age as parameters. The creatinine assay has traceable calibration to isotope dilution-mass spectrometry. Refer to KDIGO guidelines for clinical interpretation. In patients with unstable renal function, e.g. those with acute kidney injury, the eGFR may not accurately reflect actual GFR. Performed By: #### 2 4323-8 ####[facility] LABIA [id number] [place] [address] [place] Glucose [Mass/Vol] 99 mg/dL Normal 74-99 [facility] Comment on above: Order Comment: Lon harris Type: BLOOD SPECIMENOrdering Facility: [facility] Address: [address] [place] [address] Result Comment: The [place] Diabetes Association (ADA) provides guidance for cutoff values for fasting glucose and random glucose. The ADA defines fasting as no caloric intake for at least 8 hours. Fasting plasma glucose results between 100 to 125 mg/dL indicate increased risk for diabetes (prediabetes). Fasting plasma glucose results greater than or equal to 126 mg/dL meet the criteria for diagnosis of diabetes. In the absence of unequivocal hyperglycemia, results should be confirmed by repeat testing. In a patient with classic symptoms of hyperglycemia or hyperglycemic crisis, random plasma glucose results greater than or equal to 200 mg/dL meet the criteria for diagnosis of diabetes. Reference: Standards of Medical Care in Diabetes 2016, [place] Diabetes Association. Diabetes Care. 2016.39(Suppl 1). Performed By: #### 2 4323-8 ####[facility]CL[facility] [id number] [place] [address] [place] Potassium [Moles/Vol] 3.9 mmol/L Normal 3.7-5.1 [facility] Comment on above: Order Comment: Speci men Type: BLOOD SPECIMENOrdering Facility: [facility] Address: [address] [place] [address] Performed By: #### 2 4323-8 ####[facility]CL[facility] [id number] [place] [address] [place] Protein [Mass/Vol] 7.0 g/dL Normal 6.3-8.0 [facility] Comment on above: Order Comment: Speci men Type: BLOOD SPECIMENOrdering Facility: [facility] Address: [address] [place] [address] Performed By: #### 2 4323-8 ####[facility]CL[facility] [id number] [place] [address] [place] Sodium [Moles/Vol] 140 mmol/L Normal 136-144 [facility] Comment on above: Order Comment: Speci men Type: BLOOD SPECIMENOrdering Facility: [facility] Address: [address] [place] [address] Performed By: #### 2 4323-8 ####[facility]CL[facility] [id number] [place] [address] [place] Urea nitrogen [Mass/Vol] 8 mg/dL Normal 7-21 [facility] Comment on above: Order Comment: Speci men Type: BLOOD SPECIMENOrdering Facility: [facility] Address: [address] [place] [id number] Performed By: #### 2 4323-8 ####[facility] B[facility]ITA [id number] [id number] [id number] [facility] Jimbo 08-05-2023 [facility] JANAY FREDERICK ([id number]) 1950 F Date Time Provider Department 08/05/23 [facility] During your visit today, we recorded the following information about you: Jimbo Post RN 08/05/2023 2:07 PM Signed Crystal- [facility]- asking if pcp is agreeable to follow for home health care. Please phone Crystal with verbal: [phone] Kassandra Sharma APRN.LENA 08/05/2023 2:[address] Teresa order the home health care? What type of care is she receiving? Kassandra Sharma APRN.Yael Johnson LPN 08/05/2023 3:43 PM Signed Patient was in ER and admitted to [facility] the discharged to [facility] for rehab. Patient scheduled to be discharged 08/07/23 and has follow up with Brii 08/07/23 in the afternoon at this time. Kassandra Sharma APRN.CNP 08/05/2023 4:03 PM Signed He will follow for [facility] Kassandra Sharma APRN.Serina Cano Ma 08/05/2023 4:12 PM Signed Crystal notified. Serina Kovacs Ma Allergies As of Date: 08/05/2023 Noted Allergy Reaction FLAGYL (METRONIDAZOLE) 03/26/2017 8 - GI Upset Comments: Severe nausea, malaise, dizziness HCTZ (THIAZIDES) 08/14/2015 14 - Other: See Comments Comments: hypercalcemia Date Reviewed: 07/23/2023 Reviewed by: Yael Flores LPN - Fully Assessed Reason for Visit: Agree to follow for [facility] [Other] Prescriptions as of 08/05/2023 - famotidine (PEPCID) 20 mg tablet Take 1 tablet by mouth at bedtime as needed. - furosemide (LASIX) 40 mg tablet Take 1 tablet by mouth once daily. - gabapentin (NEURONTIN) 300 mg capsule Take 1 capsule by mouth once daily for 90 days. - COMPRESSION HOSIERY KNEE LENGTH, AD, 30-40 MMHG once daily. - omeprazole (PRILOSEC) 40 mg capsule Take 1 capsule by mouth once daily. - tolterodine ER (DETROL LA) 4 mg 24 hr capsule Take 1 capsule by mouth once daily. - atorvastatin (LIPITOR) 10 mg tablet Take 1 tablet by mouth once daily. Discontinue simvastatin - potassium chloride (K-TAB) 10 mEq tablet Take 1 tablet by mouth once daily. - amitriptyline (ELAVIL) 75 mg tablet Take 1 tablet by mouth daily at bedtime. - hydrocortisone 2.5 % ointment Apply to affected area twice daily as needed (hemorrhoids). - acetaminophen (TYLENOL) 500 mg tablet Take 1 tablet by mouth every 6 hours as needed for pain. - fesshvz-wzejbwowt-cbbuuj n D3 500 mg-5 mcg (200 unit) per tablet Take 1 tablet by mouth three times daily. - dilTIAZem CD (CARTIA XT) 300 mg 24 hr capsule Take 1 capsule by mouth once daily. - zoledronic acid (RECLAST) 5 mg/100 mL pgbk PREMIX piggyback Inject 100 mL intravenously one time only for 1 dose. - HYDROcodone-acetaminophe n (NORCO) 5-325 mg per tablet Take 3 tablets by mouth as needed. - docusate sodium (COLACE) 100 mg capsule Take 1 capsule by mouth twice daily. - cholecalciferol (VITAMIN D3) 50 mcg (2,000 unit) tablet Take 2,000 Units by mouth once daily. - multivitamin tablet Take 1 tablet by mouth once daily. 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 01/16/2016 BLUE NEVUS NOSE [D23.30] 08/15/2005 Acute, but ill-defined, cerebrovascular disease* 09/19/2017 Unspecified hemorrhoids without mention of comp* 01/16/2016 Vitamin D deficiency [E55.9] 02/11/2009 Leiomyoma of uterus, unspecified [D25.9] 02/11/2009 10/24/2018 Morbid obesity (HCC) [E66.01] 12/20/2009 01/31/2023 Gastric ulcer with obstruction [K25.9] 12/20/2009 10/24/2018 Osteoarth NOS-l/leg [MYN9463] 06/29/2010 Degenerative arthritis of left knee [M17.12] 02/07/2012 Pes anserinus bursitis of left knee [M70.52] 05/26/2012 Osteopenia [M85.80] 08/31/2013 HLD (hyperlipidemia) [E78.5] 02/14/2014 OAB (overactive bladder) [N32.81] 02/14/2014 Left spastic hemiparesis (HCC) [G81.14] 03/16/2014 Special screening for malignant neoplasms, colo*02/24/2015 10/24/2018 Primary osteoarthritis involving multiple joint*08/14/2015 Difficulty swallowing solids [R13.10] 10/20/2015 10/24/2018 Cerebrovascular accident (CVA) due to thrombosi*04/13/2016 Chronic bilateral low back pain without sciatic*04/13/2016 Incomplete uterovaginal prolapse [N81.2] 11/01/2016 Pelvic organ prolapse quantification stage 2 cy*06/10/2017 Dysphagia [R13.10] 07/09/2017 10/24/2018 Gastric band slippage [K95.09] 07/09/2017 06/26/2018 Preop testing [Z01.818] 10/11/2017 06/26/2018 Venous incompetence [I87.2] Hypercalcemia [E83.52] 05/13/2021 Osteoporosis [M81.0] 05/13/2021 Obesity, Class III, BMI 40-49.9 (morbid obesity*07/27/2021 Hyperparathyroidism (HCC) [E21.3] 07/27/2021 Migraine without aura [G43.009] 02/02/2022 Insomnia [G47.00] 02/02/2022 01/31/2023 GERD (gastroesophageal reflux disease) [K21.9] 01/31/2023 Episode of recurrent major depressive disorder *02/12/2023 06/19/2023 Encounter Status:C (more content not included)... Normal [facility] CNPNon 07-24-2023 CNPN Telephone (FAMPWS) -------- JANAY FREDERICK ([id number]) 1950 F Date Time Provider Department 07/24/23 [facility] During your visit today, we recorded the following information about you: Shorty Teresa MD 07/24/2023 10:08 AM Signed Patient's chest xray shows a few opacities in both lungs. With recent cough and abnormal lung exam, would treat this like a pneumonia. Will start patient on augmentin and z pack for 5 days. Should f/u in 1 week if symptoms not improving. Mickie Green MA 07/24/2023 10:46 AM Signed Patient notified and verbalized understanding. Mickie Green MA Allergies As of Date: 07/24/2023 Noted Allergy Reaction FLAGYL (METRONIDAZOLE) 03/26/2017 8 - GI Upset Comments: Severe nausea, malaise, dizziness HCTZ (THIAZIDES) 08/14/2015 14 - Other: See Comments Comments: hypercalcemia Date Reviewed: 07/23/2023 Reviewed by: Yael Flores LPN - Fully Assessed Reason for Visit: Results [95] Order(s):amoxicillin-cla vulanate potassium (AUGMENTIN) 875-125 mg per tabletTake 1 tablet by mouth two times a day for 5 days.Disp: 10 tabletRfl: 0 azithromycin (ZITHROMAX Z-EZIO) 250 mg tabletTake 2 tablets day one, then, 1 tablet daily until gone.Disp: 6 tabletRfl: 0 Prescriptions as of 07/24/2023 - amoxicillin-clavulanate potassium (AUGMENTIN) 875-125 mg per tablet Take 1 tablet by mouth two times a day for 5 days. - azithromycin (ZITHROMAX Z-EZIO) 250 mg tablet Take 2 tablets day one, then, 1 tablet daily until gone. - famotidine (PEPCID) 20 mg tablet Take 1 tablet by mouth at bedtime as needed. - benzonatate (TESSALON PERLE) 100 mg capsule Take 1 capsule by mouth three times a day as needed for up to 10 days. - furosemide (LASIX) 40 mg tablet Take 1 tablet by mouth once daily. - gabapentin (NEURONTIN) 300 mg capsule Take 1 capsule by mouth once daily for 90 days. - COMPRESSION HOSIERY KNEE LENGTH, AD, 30-40 MMHG once daily. - omeprazole (PRILOSEC) 40 mg capsule Take 1 capsule by mouth once daily. - tolterodine ER (DETROL LA) 4 mg 24 hr capsule Take 1 capsule by mouth once daily. - atorvastatin (LIPITOR) 10 mg tablet Take 1 tablet by mouth once daily. Discontinue simvastatin - potassium chloride (K-TAB) 10 mEq tablet Take 1 tablet by mouth once daily. - amitriptyline (ELAVIL) 75 mg tablet Take 1 tablet by mouth daily at bedtime. - hydrocortisone 2.5 % ointment Apply to affected area twice daily as needed (hemorrhoids). - acetaminophen (TYLENOL) 500 mg tablet Take 1 tablet by mouth every 6 hours as needed for pain. - zjtthzj-rhejkrhis-wnenza n D3 500 mg-5 mcg (200 unit) per tablet Take 1 tablet by mouth three times daily. - dilTIAZem CD (CARTIA XT) 300 mg 24 hr capsule Take 1 capsule by mouth once daily. - zoledronic acid (RECLAST) 5 mg/100 mL pgbk PREMIX piggyback Inject 100 mL intravenously one time only for 1 dose. - HYDROcodone-acetaminophe n (NORCO) 5-325 mg per tablet Take 3 tablets by mouth as needed. - docusate sodium (COLACE) 100 mg capsule Take 1 capsule by mouth twice daily. - cholecalciferol (VITAMIN D3) 50 mcg (2,000 unit) tablet Take 2,000 Units by mouth once daily. - multivitamin tablet Take 1 tablet by mouth once daily. 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 01/16/2016 BLUE NEVUS NOSE [D23.30] 08/15/2005 Acute, but ill-defined, cerebrovascular disease* 09/19/2017 Unspecified hemorrhoids without mention of comp* 01/16/2016 Vitamin D deficiency [E55.9] 02/11/2009 Leiomyoma of uterus, unspecified [D25.9] 02/11/2009 10/24/2018 Morbid obesity (HCC) [E66.01] 12/20/2009 01/31/2023 Gastric ulcer with obstruction [K25.9] 12/20/2009 10/24/2018 Osteoarth NOS-l/leg [TXM3537] 06/29/2010 Degenerative arthritis of left knee [M17.12] 02/07/2012 Pes anserinus bursitis of left knee [M70.52] 05/26/2012 Osteopenia [M85.80] 08/31/2013 HLD (hyperlipidemia) [E78.5] 02/14/2014 OAB (overactive bladder) [N32.81] 02/14/2014 Left spastic hemiparesis (HCC) [G81.14] 03/16/2014 Special screening for malignant neoplasms, colo*02/24/2015 10/24/2018 Primary osteoarthritis involving multiple joint*08/14/2015 Difficulty swallowing solids [R13.10] 10/20/2015 10/24/2018 Cerebrovascular accident (CVA) due to thrombosi*04/13/2016 Chronic bilateral low back pain without sciatic*04/13/2016 Incomplete uterovaginal prolapse [N81.2] 11/01/2016 Pelvic organ prolapse quantification stage 2 cy*06/10/2017 Dysphagia [R13.10] 07/09/2017 10/24/2018 Gastric band slippage [K95.09] 07/09/2017 06/26/2018 Preop testing [Z01.818] 10/11/2017 06/26/2018 Venous incompetence [I87.2] Hypercalcemia [E83.52] 05/13/2021 Osteoporosis [M81.0] 05/13/2021 Obesity, Class III, BMI 40-49.9 (morbid obesity*07/27/2021 Hyperparathyroidism (HCC) [E21.3] 07/27/2021 Migraine without aura [G43.009] (more content not included)... Normal [facility] CNOVon 07-23-2023 CNOV Office Visit (FAMPWS ) -------- JANAY FREDERICK ([id number]) 1950 F Date Time Provider Department 07/23/23 7:00 PM [facility] During your visit today, we recorded the following information about you: Temperature Pulse Respiration Blood pressure 98.1 degrees 92/minute 16/minute 148/76 Shorty Teresa MD 07/23/2023 7:09 PM Signed Chief Complaint Patient presents with: URI: Cough, [...] 02/24/15 Colonoscopy EGD DILATION GASTRIC/DUODENAL STRICTURE 12/20/09 ESOPHAGOGASTRODUODENOSCO PY TRANSORAL DIAGNOSTIC 11/27/13 EGD HYSTERECTOMY 10/2107 pelvic organ prolapse LAPAROSCOPY SURG CHOLECYSTECTOMY 2004 Cholecystectomy, lap LAPS GASTRIC RESTRICTIVE PROCEDURE PLACE DEVICE 04/21/2010 Performed by THI ALCOCER at [facility] LAPS RPR PARAESPHGL HRNA INCL FUNDPLSTY W/O MESH 04/21/2010 Performed by THI ALCOCER at [facility] MAL LESION FACE,EAR,EYEL 1.1-2CM 01/28/06 Left cheek and right forearm lesions PAST SURGICAL HISTORY OF July 06, 2009 Hysteroscopy DANOK PAST SURGICAL HISTORY OF 10/2017 vaginal vault suspension PAST SURGICAL HISTORY OF 10/2017 Lap band removed UNLIS LAPAROSCOPIC PROCEDURE LIVER 04/21/2010 Performed by THI ALCOCER at [facility] Family History FAMILY HISTORY Problem Relation [...] 1 tablet by mouth daily at bedtime. hydrocortis (more content not included)... Normal [facility] COVID AND INFLUENZA A/B AND RSV NAAT, ROUTINEon 07-23-2023 SARS-CoV-2 (COVID-19) RNA ELOY+probe Ql (Unsp spec) COVID 19 RESULT: Not detected The method used is RT-PCR or an equivalent NAAT method. Reference Range (the expected result in uninfected individuals): Not detected INFLUENZA A PCR: Not detected INFLUENZA B PCR: Not detected RSV PCR: Not detected Normal [facility] Comment on above: Performed By: #### C VFLRS ####[facility] LABCL[facility] [id number] [place] [address] [place] XR CHEST 2V FRONTAL/LATon XR CHEST 2V FRONTAL/LAT * * *Final Report* * * DATE OF EXAM: Jul 23 2023 7:30PM WOX [id number] - XR CHEST 2V FRONTAL/LAT / PROCEDURE REASON: Suspected COVID-19 virus infection * * * * Physician Interpretation * * * * EXAMINATION: CHEST RADIOGRAPH (2 VIEW FRONTAL and LATERAL) CLINICAL HISTORY: Suspected COVID-19 virus infection MQ: XC2_6 EXAM DATE/TIME: 07/23/2023 7:30 PM COMPARISON: Chest x-ray on 04/19/2021 RESULT: Lines, tubes, and devices: None. Lungs and pleura: There are a few nodular opacities in the bilateral mid to lower lung zones. No mass lesions seen. No pleural effusions or pneumothorax. Cardiomediastinal silhouette: Stable cardiomediastinal silhouette. Bones and soft tissues: The spine shows exaggerated kyphosis. Vertebral body compression deformities seen in the thoracolumbar spine; findings are similar to prior study. IMPRESSION: A few nodular opacities in the bilateral lungs. Consider short-term follow-up. Mine Equipment Design Engineer: [facility] Transcribe Date/Time: Jul 23 2023 7:56P Dictated by : AYE CARR MD This examination was interpreted and the report reviewed and electronically signed by: AYE CARR MD on Jul 23 2023 7:58PM EST [id number] Normal [facility] XR Chest PA and Lateralon IMPRESSION: A few nodular opacities in the bilateral lungs. Consider short-term follow-up. Mine Equipment Design Engineer: [facility] Transcribe Date/Time: Jul 23 2023 7:56P Dictated by : AYE CARR MD This examination was interpreted and the report reviewed and electronically signed by: AYE CARR MD on Jul 23 2023 7:58PM EST DIVISION OF RADIOLOGY * * *Final Report* * * DATE OF EXAM: Jul 23 2023 7:30PM WOX [id number] - XR CHEST 2V FRONTAL/LAT / PROCEDURE REASON: Suspected COVID-19 virus infection * * * * Physician Interpretation * * * * EXAMINATION: CHEST RADIOGRAPH (2 VIEW FRONTAL & LATERAL) CLINICAL HISTORY: Suspected COVID-19 virus infection MQ: XC2_6 EXAM DATE/TIME: 07/23/2023 7:30 PM COMPARISON: Chest x-ray on 04/19/2021 RESULT: Lines, tubes, and devices: None. Lungs and pleura: There are a few nodular opacities in the bilateral mid to lower lung zones. No mass lesions seen. No pleural effusions or pneumothorax. Cardiomediastinal silhouette: Stable cardiomediastinal silhouette. Bones and soft tissues: The spine shows exaggerated kyphosis. Vertebral body compression deformities seen in the thoracolumbar spine; findings are similar to prior study. DIVISION OF RADIOLOGY Provider, Anyi Oleksandr [facility] - 07/23/2023 * * *Final Report* * * DATE OF EXAM: Jul 23 2023 7:30PM WOX [id number] - XR CHEST 2V FRONTAL/LAT / PROCEDURE REASON: Suspected COVID-19 virus infection * * * * Physician Interpretation * * * * EXAMINATION: CHEST RADIOGRAPH (2 VIEW FRONTAL & LATERAL) CLINICAL HISTORY: Suspected COVID-19 virus infection MQ: XC2_6 EXAM DATE/TIME: 07/23/2023 7:30 PM COMPARISON: Chest x-ray on 04/19/2021 RESULT: Lines, tubes, and devices: None. Lungs and pleura: There are a few nodular opacities in the bilateral mid to lower lung zones. No mass lesions seen. No pleural effusions or pneumothorax. Cardiomediastinal silhouette: Stable cardiomediastinal silhouette. Bones and soft tissues: The spine shows exaggerated kyphosis. Vertebral body compression deformities seen in the thoracolumbar spine; findings are similar to prior study. IMPRESSION IMPRESSION: A few nodular opacities in the bilateral lungs. Consider short-term follow-up. 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 Transcribe Date/Time: Jul 23 2023 7:56P Dictated by : AYE CARR MD This examination was interpreted and the report reviewed and electronically signed by: AYE CARR MD on Jul 23 2023 7:58PM EST [facility] Radiology Study observation (narrative) [facility] XR Chest PA and LateralOrder ed By: Germán Provider on 07-23-2023 [facility] CNOVon 06-19-2023 CNOV Office Visit (CARLOSPWS ) -------- JANAY FREDERICK ([id number]) 1950 F Date Time Provider Department 06/19/23 2:00 PM KASSANDRA SHARMA During your visit today, we recorded the following information about you: Pulse Respiration Blood pressure Weight 90/minute 18/minute 136/80 93 kg Kassandra Sharma APRN.CNP 06/19/2023 3:37 PM Signed 06/19/2023 Patient presents with: Follow Up: 4 [...] every 6 hours as needed for pain. jrghmqn-jdwbfxelt-smrxun n D3 500 mg-5 mcg (200 unit) per tablet Take 1 tablet by mouth three times daily. dilTIAZem CD (CARTIA XT) 300 mg 24 hr capsule Take 1 capsule by mouth once daily. furosemide (LASIX) 40 mg tablet Take 1 tablet by mouth once daily. zoledronic acid (RECLAST) 5 mg/100 mL pgbk PREMIX piggyback Inject 100 mL intravenously one time only for 1 dose. HYDROcodone-acetaminophe n (NORCO) 5-325 mg per tablet Take 3 [...] gallops, no JVD appreciated LUNG clear to (more content not included)... [facility] CNOVon 05-29-2023 CNOV Office Visit (ENDMED ) -------- JANAY FREDERICK ([id number]) 1950 F Date Time Provider Department 05/29/23 4:40 PM HAYDEN FLANAGAN During your visit today, we recorded the following information about you: Pulse Blood pressure Weight Height 95/minute 135/75 94.6 kg 1.524 m Hayden Flanagan MD 05/29/2023 4:46 PM Signed ENDOCRINOLOGY CLINIC NOTE Reason for visit Janay [...] standing height Treatment history (including any side effects/contraindication s): Reclast x2 in 01/2021 and 09/2022 Family [...] 02/24/15 Colonoscopy EGD DILATION GASTRIC/DUODENAL STRICTURE 12/20/09 ESOPHAGOGASTRODUODENOSCO PY TRANSORAL DIAGNOSTIC 11/27/13 EGD HYSTERECTOMY 10/2107 pelvic organ prolapse LAPAROSCOPY SURG CHOLECYSTECTOMY 2004 Cholecystectomy, lap LAPS GASTRIC RESTRICTIVE PROCEDURE PLACE DEVICE 04/21/2010 Performed by THI ALCOCER at [facility] LAPS RPR PARAESPHGL HRNA INCL FUNDPLSTY W/O MESH 04/21/2010 Performed by DONALD (more content not included)... [facility] CNOVon 05-28-2023 CNOV Office Visit (ORMDNA ) -------- JANAY FREDERICK ([id number]) 1950 F Date Time Provider Department 05/28/23 4:00 PM ARNOL JONAS During your visit today, we recorded the following information about you: Arnol Jonas MD 05/28/2023 4:33 PM Signed Janay is here for Durolane injection in the right knee. History and physical exam unchanged. Large Joint Arthro/Inj: R knee joint Informed Consent Consent Obtained: Verbal [place] Protocol A moment to CARE was completed. [...] which included preparing to see the patient, [id number] patient care, completing clinical documentation, obtaining and/or reviewing separately obtained history, performing a medically appropriate examination, counseling and educating the patient/family/caregiver . Arnol Jonas MD Orthopaedic Surgery Referring Provider: ARNOL JONAS [[id number]] Allergies As of Date: 05/28/2023 Noted Allergy Reaction FLAGYL (METRONIDAZOLE) 03/26/2017 8 - GI Upset Comments: Severe nausea, malaise, dizziness HCTZ (THIAZIDES) 08/14/2015 14 - Other: See Comments Comments: hypercalcemia Date Reviewed: 05/28/2023 Reviewed by: Arnol Jonas MD - Fully Assessed Reason for Visit: Follow Up [171] Cmt: Durolane injection Primary Visit Diagnosis:Primary osteoarthritis of right knee [M17.11] Order(s):Large Joint Arthro/Inj: R knee joint [GIW064] Order #: [id number] [] hyaluronate sodium, stabilized syrg 3 mL (DUROLANE)Disp: Rfl: Prescriptions as of 05/28/2023 - gabapentin (NEURONTIN) 300 mg capsule Take 1 capsule by mouth once daily for 90 days. - omeprazole (PRILOSEC) 40 mg capsule Take 1 capsule by mouth once daily. - tolterodine ER (DETROL LA) 4 mg 24 hr capsule Take 1 capsule by mouth once daily. - atorvastatin (LIPITOR) 10 mg tablet Take 1 tablet by mouth once daily. Discontinue simvastatin - potassium chloride (K-TAB) 10 mEq tablet Take 1 tablet by mouth once daily. - amitriptyline (ELAVIL) 75 mg tablet Take 1 tablet by mouth daily at bedtime. - hydrocortisone 2.5 % ointment Apply to affected area twice daily as needed (hemorrhoids). - acetaminophen (TYLENOL) 500 mg tablet Take 1 tablet by mouth every 6 hours as needed for pain. - calcium carbonate (TUMS) 500 mg chew Take 1 tablet by mouth every hour as needed (mouth or hand numbness or tingling). - akctkjl-vahriknjf-rbdomn n D3 500 mg-5 mcg (200 unit) per tablet Take 1 tablet by mouth three times daily. - dilTIAZem CD (CARTIA XT) 300 mg 24 hr capsule Take 1 capsule by mouth once daily. - furosemide (LASIX) 40 mg tablet Take 1 tablet by mouth once daily. - zoledronic acid (RECLAST) 5 mg/100 mL pgbk PREMIX piggyback Inject 100 mL intravenously one time only for 1 dose. - HYDROcodone-acetaminophe n (NORCO) 5-325 mg per tablet Take 3 tablets by mouth as needed. - docusate sodium (COLACE) 100 mg capsule Take 1 capsule by mouth twice daily. - cholecalciferol (VITAMIN D3) 50 mcg (2,000 unit) tablet Take 2,000 Units by mouth once daily. - multivitamin tablet Take 1 tablet by mouth once daily. 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 01/16/2016 BLUE NEVUS NOSE [D23.30] 08/15/2005 Acute, but ill-defined, cerebrovascular disease* 09/19/2017 Unspecified hemorrhoids without mention of comp* 01/16/2016 Vitamin D deficiency [E55.9] 02/11/2009 Leiomyoma of uterus, unspecified [D25.9] 02/11/2009 10/24/2018 Morbid obesity (HCC) [E66.01] 12/20/2009 01/31/2023 Gastric ulcer with obstruction [K25.9] 12/20/2009 10/24/2018 Osteoarth NOS-l/leg [FXR7605] 06/29/2010 Degenerative arthritis of left knee [M17.12] 02/07/2012 Pes anserinus bursitis of left knee [M70.52] 05/26/2012 Osteopenia [M85.80] 08/31/2013 HLD (hyperlipidemia) [E78.5] 02/14/2014 OAB (overactive bladde (more content not included)... [facility] CNCOon 05-17-2023 CNCO HNO ID: [id number] Author: Coordinator, Mammography Service: ? Author Type: Physician Type: Letter Filed: 05/20/2023 11:38 PM Note Text: May 17, 2023 PID: [id number] Janay Frederick [address] [place] [address] Dear Ms. Frederick, We are pleased to [...] report will be kept on file at [facility] as part of your permanent medical record and are available for your continuing care. Thank you for allowing us to help in meeting your health care needs. Sincerely, Dr. Matos Interpreting Radiologist [facility] (Normal over 40) Normal [facility] SCREENINGon 05-16-2023 [facility] SCREENING * * *Final Report* * * DATE OF EXAM: May 16 2023 3:05PM [facility] - [facility] SCREENING / PROCEDURE REASON: Screening mammogram for breast cancer * * * * Physician Interpretation * * * * RESULT: #[id number] - [facility] SCREENING BILATERAL DIGITAL SCREENING MAMMOGRAM WITH CAD: 05/16/2023 HISTORY: /SEE TECH NOTE Screening Mammogram For Breast Cancer /Screening Mammogram - patient reports NO breast symptoms /priors available for comparison. RESULT: TECHNIQUE: The study was acquired using full field digital technology and interpreted from soft copy. Current study was also evaluated with a Computer Aided Detection (CAD). Comparison is made to exams dated: 04/26/2022 mammogram and 05/18/2021 mammogram - [facility]. There are scattered areas of fibroglandular density. No significant masses, calcifications, or other findings are seen in either breast. There has been no significant interval change. IMPRESSION: NEGATIVE There is no mammographic evidence of malignancy. A 1 year screening mammogram is recommended. Myles ontiveros/shorty:05/17/2023 11:15:12 Water Resources Engineer(s): RT Valentin(R)(M), [facility] letter sent: Normal over 40 Mammogram BI-RADS: 1 Negative Multiple national specialty organizations have released breast cancer screening guidelines for women at average risk for developing breast cancer - guidelines that are based on both evidence and opinion, yet differ on when to start and how often to screen for breast cancer. With representation from Breast Imaging, Internal Medicine, Women's Health, Family Medicine, and Medical/Surgical Oncology, the [facility] has carefully reviewed the data and reached the following consensus: 1) All women should engage in shared decision-making with their providers to decide when to start and how often to screen; 2) All women should have the opportunity to start screening mammography at age 40; 3) For women ages 45-55, we recommend annual screening mammograms; 4) For women ages 55 and over, we support both the transition from an annual to a biennial interval if this aligns more with patient's values and preferences, or continuation with annual screening; 5) All women should discuss with their providers when to stop screening mammograms. Mine Equipment Design Engineer: Shorty Transcribe Date/Time: May 16 2023 2:43P Dictated by: MYLES MATOS MD This examination was interpreted and the report reviewed and electronically signed by: MYLES MATOS MD on May 17 2023 11:15AM EST [id number] [facility] CNDSon 02-09-2023 CNDS HNO ID: [id number] Author: Vivian Barrientos RN Service: ? Author Type: Registered Nurse Type: Discharge Summary Filed: 02/09/2023 12:36 PM Note Text: Patient is discharged. IV removed successfully. Went over d/c instructions with patient and she verbalized understanding as well as follow up and new meds sent to her pharmacy. Patient left safely off unit in w/c with transport to home. Family driving her home. Normal [facility] Calcium SerPl-mCncon 023 Calcium [Mass/Vol] 9.1 mg/dL Normal 8.5-10.2 [facility] Comment on above: Order Comment: Speci men Type: BLOOD SPECIMEN Ordering Facility: [facility] Address: [place] [address] Performed By: #### 1 [id number] #### [facility] [id number] [address] [place] [address] [place] PTH-Intact SerPl-ncon 01-20 Parathyrin.intact [Mass/Vol] 17 pg/mL Normal 15-65 [facility] Comment on above: Order Comment: Speci men Type: BLOOD SPECIMEN [facility]ing Facility: [facility] Address: [address] [place], [place] [address] Performed By: #### 2 [id number] #### [facility] [id number] [address] [place] [address] [place] ANES POSTPROC EVALon 023 ANES POSTPROC EVAL HNO ID: [id number] Author: Wilber Soliman MD Service: Anesthesiology Author Type: Physician Type: Anesthesia Postprocedure Evaluation Filed: 02/08/2023 4:03 PM Note Text: POST ANESTHESIA EVALUATION NOTE : 1950 Procedure Summary Date: 02/08/23 Room / Location: [place] [address] / OR Anesthesia Start: 1141 Anesthesia Stop: 1306 Procedure: PARATHYROIDECTOMY (Thyroid) Diagnosis: Primary hyperparathyroidism (HCC) (Primary hyperparathyroidism (HCC) [E21.0]) Surgeons: Leydi Vance MD Responsible Provider: Wilber Soliman MD Anesthesia Type: general ASA Status: 3 Anesthesia Type: general Airway Type: ETT Last Vitals Vitals Value Taken Time BP 121/62 02/08/23 1508 Temp 36.3 ?C (97.3 ?F) 02/08/23 1508 Pulse 73 02/08/23 1508 Resp 16 02/08/23 1508 SpO2 97 % 02/08/23 1508 Post Anesthesia Patient Status Patient Evaluation: PACU. PACU/ICU Patient Condition: stable. Anticipated Disposition: inpatient floor planned admission. Neurological Status: aware and responsive. Pulmonary Status: breathing comfortably on room air Airway Control: returned to baseline unsupported. Cardiovascular Status: stable. Pain Management: clinically adequate - multimodal analgesia pain management approach Postoperative Hydration: acceptable. Intraoperative Events: no significant anesthesia events Recommendation: continue current plan of care and further care per PACU/ICU/floor team. Anesthesia Observations No Documentation SIGNATURE: Wilber Soliman MD PATIENT NAME: Janay Frederick DATE: February 08, 2023 TIME: 4:03 PM CSN: [id number] [facility] ANES PRE-OPon 02-08-2023 ANES PRE-OP HNO ID: [id number] Author: Wilber Soliman MD Service: Anesthesiology Author Type: Physician Type: Anesthesia Preprocedure Evaluation Filed: 02/08/2023 9:42 AM Note Text: ANESTHESIOLOGY DAY OF SURGERY NOTE : 1950 Procedure Information Date/Time: 02/08/23 1105 Procedure: PARATHYROIDECTOMY (Thyroid) Location: MM OR05 / MM OR Surgeons: Leydi Vance MD Estimated body mass index is 40.66 kg/m? as calculated from the following: Height as of 01/31/23: 152.4 cm (5'). Weight as of 01/31/23: 94.4 kg (208 lb 3.2 oz). Most recent hematocrit and potassium results: Hematocrit 45.4 01/31/2023 Potassium 3.9 01/31/2023 Relevant Problems CARDIO (+) Migraine without aura (+) Venous incompetence GI (+) GERD (gastroesophageal reflux disease) NEURO-PSYCH (+) Cerebrovascular accident (CVA) due to thrombosis of right middle cerebral artery (HCC) (+) Migraine without aura Other (+) Pes anserinus bursitis of left knee I - PHYSICAL EVALUATION AIRWAY Patient intubated: No. Tracheostomy tube not present Mallampati: III. TM distance: >3 FB. Neck ROM: full ROM without neurological symptoms. Mouth opening: adequate. Short neck: no. Thick neck: no DENTAL Dental findings: teeth intact. Additional exam findings: no II - ANESTHESIA PLAN ASA Score: 3 Anesthetic Plan: general Airway type: ETT NPO Status: adequate Beta Allyssa Monitoring Plan Monitoring plan: Standard ASA. Post Procedure Analgesic Plan Postoperative analgesic plan: parenteral or oral opioids and multimodal analgesia. Patient / Surrogate agrees to blood products: yes DNR status not reviewed with patient and/or family prior to surgery. Significant changes in the patient condition since the History and Physical, not otherwise documented in primary service progress note: no. Potential Anesthesia issues that may suggest increased risk of complications or contraindication to planned procedure: none. No vitals data found for the desired time range. Facility-Administered Medications as of 02/08/2023 Medication Dose Route Frequency - lidocaine (PF) 10 mg/mL (1 %) 1-2 mg injection (XYLOCAINE) 0.1-0.2 mL INTRADERMAL PRN - NaCl 0.9% iv infusion 75 mL/hr INTRAVENOUS CONTINUOUS Outpatient Medications as of 02/08/2023 Medication Sig - omeprazole (PRILOSEC) 40 mg capsule Take 1 capsule by mouth once daily. - zoledronic acid (RECLAST) 5 mg/100 mL pgbk PREMIX piggyback Inject 100 mL intravenously one time only for 1 dose. - estradiol (ESTRACE) 0.01 % (0.1 mg/gram) vaginal cream Finger - Tip amount at bedtime as directed for 2 weeks, then every other day (Patient not taking: Reported on 01/31/2023) - hydrocortisone 2.5 % ointment Apply to affected area twice daily as needed (hemorrhoids). - tolterodine ER (DETROL LA) 4 mg 24 hr capsule Take 1 capsule by mouth once daily. - atorvastatin (LIPITOR) 10 mg tablet Take 1 tablet by mouth once daily. Discontinue simvastatin - amitriptyline (ELAVIL) 75 mg tablet Take 1 tablet by mouth daily at bedtime. - potassium chloride (K-TAB) 10 mEq tablet Take 1 tablet by mouth once daily. - naloxone 4 mg/actuation nasal spray (NARCAN) 1 [place] by nasal (alternating) route as needed for known or suspected opioid overdose. Use 1 spray in one nostril as needed for overdose. May repeat every 2 to 3 min in alternating nostrils until medical assistance is available (Patient not taking: Reported on 01/31/2023) - HYDROcodone-acetaminophe n (NORCO) 5-325 mg per tablet Take 3 tablets by mouth as needed. - docusate sodium (COLACE) 100 mg capsule Take 1 capsule by mouth twice daily. - cholecalciferol (VITAMIN D3) 50 mcg (2,000 unit) tablet Take 2,000 Units by mouth once daily. - multivitamin tablet Take 1 tablet by mouth once daily. I have interviewed and examined the patient. I have reviewed the medical record and/or the pre-anesthesia evaluation, pertinent labs, and test results. This contains updated information obtained within 48 hours of Surgery/Procedure. SIGNATURE: Wilber Soliman MD PATIENT NAME: Janay Frederick DATE: February 08, 2023 TIME: 9:42 AM CSN: [id number] [facility] BRIEF OP NOTon 02-08-2023 BRIEF OP NOT HNO ID: [id number] Author: Laura Delgado MD Service: Endocrine Surgery Author Type: Resident Type: Brief Op Note Filed: 02/08/2023 12:46 PM Note Text: GENERAL SURGERY BRIEF OP NOTE LOG ID: [id number] Surgery/Procedure Date: 02/08/2023 Incision/Procedure Start Time: 11:58 AM Incision Close/Procedure End Time: 12:42 PM Surgeon(s) and Morning News Anchor(s): Surgeon(s) and Role: * Leydi Vance MD - Primary * Laura Delgado MD - Resident - Assisting No Additional Staff Procedure(s): Parathyroidectomy Anesthesia: General Findings: Enlarged left lower gland, please see operative report for full details Estimated Blood Loss: 5 mls Specimens: ID Type Source Tests Collected by Time Destination 1 : Pre PTH Blood BLOOD INTRAOPERATIVE PTH Leydi Vance MD 02/08/2023 12:14 PM 2 : Pre PTH Blood BLOOD INTRAOPERATIVE PTH Leydi Vance MD 02/08/2023 12:26 PM A : left lower [id number] Tissue PARATHYROID GLAND LEFT SURGICAL PATHOLOGY Leydi Vance MD 02/08/2023 12:02 PM Implants: * No implants in log * Wound Classification: Class 1, operative wound clean, non-traumatic, with no inflammation encountered, no break in technique, gastrointestinal and genitor-urinary tracts not entered Complications: None Pre-Op/Pre-Procedure Diagnosis: Pre-Op Diagnosis Codes: * Primary hyperparathyroidism (HCC) [E21.0] Post-Op/Post-Procedure Diagnosis: Same SIGNATURE: Laura Delgado MD PATIENT NAME: Janay Frederick DATE: February 08, 2023 TIME: 12:45 PM PAGER/CONTACT #: [phone] [facility] INTRAOPERATIVE PTHon 023 INTRAOPERATIVE PTH 40 pg/mL Normal 15-65 [facility] Comment on above: Order Comment: Speci men Type: BLOOD SPECIMEN Ordering Facility: [facility] Address: [address] [address] Performed By: #### R IPTH #### [facility] CLIA [id number] [place] [address] INTRAOPERATIVE PTH 112 pg/mL High 15-65 [facility] Comment on above: Order Comment: Speci men Type: BLOOD SPECIMEN Ordering Facility: [facility] Address: [address] [address] Performed By: #### R IPTH #### [facility] CLIA [id number] [address] [place] [address] OPERATIVE NOon 02-08-2023 OPERATIVE NO HNO ID: [id number] Author: Leydi Vance MD Service: Endocrine Surgery Author Type: Physician Type: Operative Report Filed: 02/14/2023 10:27 PM Note Text: [facility] - Operative Report JANAY FREDERICK : 1950 AGE: 72. SEX: F PATIENT TYPE: A HOSP SVC: ENDOCRINE GONZALEZ LOCATION: [facility] ATTENDING PHYSICIAN: Leydi Vance MD CSN NUMBER: [id number] DATE OF SURGERY/PROCEDURE: 02/08/2023 INCISION/PROCEDURE START TIME: 11:58. INCISION CLOSE/PROCEDURE END TIME: Closure with dressing applied is 12:40. PREOPERATIVE DIAGNOSIS: Primary hyperparathyroidism. POSTOPERATIVE DIAGNOSIS: Primary hyperparathyroidism. SURGEON: Leydi Vance MD FINANCIAL UNDERWRITER: Laura Delgado MD. SURGERY/PROCEDURE: Left lower parathyroidectomy, intravenous sampling for parathyroid hormone levels, and intraoperative ultrasound. ANESTHESIA: General. OPERATIVE INDICATION: This is a 72-year-old female patient, who was recently evaluated for primary hyperparathyroidism. She is therefore being taken to the operating room for parathyroidectomy at this point. The indications, alternatives, risks, and benefits of the procedure have been explained to the patient and informed consent was obtained. OPERATIVE FINDING: Intraoperative ultrasound was performed. This demonstrated a thyroid gland that was overall normal in size with coarse background echogenicity. A few subcentimeter simple cysts were seen throughout the entire gland, overall unremarkable. Located immediately below the left thyroid lobe was a hypoechoic mass measuring about 1 cm. This contained vascularity and was classic for a left lower parathyroid adenoma. No other parathyroid glands were seen. Benign-appearing lymph nodes were seen along the jugular chain bilaterally. Bilateral central neck exploration was performed, starting from the left side first. We were able to identify a clearly enlarged and hypervascular left lower parathyroid gland immediately below the left thyroid lobe. This was circumferentially mobilized. Pre-excision PTH level was drawn from the left anterior jugular vein. The left lower parathyroid gland was then excised in its entirety and measured 15 x 11 x 3 mm. Frozen evaluation revealed this to be hypercellular parathyroid tissue. Ten minutes after the excision, a post-excision PTH level was then drawn. The 3 other parathyroid glands were found in their expected location. Both upper parathyroid glands were found posterior to the midpole of the thyroid lobe respectively. The right lower parathyroid gland was found lateral to the inferior pole of the right thyroid lobe. They were all normal in size. The pre-excision PTH level was 112, the post-excision PTH level was 40. The patient tolerated the procedure without any problem. DESCRIPTION OF PROCEDURE: OPERATIVE PROCEDURE: The patient was taken to the operating room and placed upon the table in a supine position. After induction of general endotracheal anesthesia, beanbag support was used to elevate the thoracic spine. The neck was gently hyperextended. Neck ultrasonography was performed using an AlL3 Alpha 7 ultrasound machine with high-frequency linear array small parts transducer. The incision was marked at the appropriate location with the aid of the US findings. The neck was sterilely prepped and draped. A transverse incision of 3-cm was made along a natural skin crease and carried down through the platysma. Small superior and inferior subplatysmal flaps were raised. The strap muscles were divided longitudinally in midline of the neck and the sternohyoid and sternothyroid muscles were from one another on the anterior surface of the trachea. The plane between the thyroid gland and the strap muscles was developed with blunt dissection. We started our exploration on the left side first, with the above operative findings. Intravenous sampling of PTH levels were obtained from the left anterior jugular vein. At the completion of the procedure, the wound was irrigated and checked for hemostasis. The strap muscles were then closed with individual layers of interrupted 4-0 Vicryl suture. The platysma was similarly approximated. The skin was temporarily approximated with a running 3-0 Prolene suture, sealed with surgical adhesives and covered with sterile strips. The suture was removed after the patient was successfully extubated. The patient tolerated procedure well. Attending surgeon, Dr. Vance, was present and scrubbed for the entire procedure. ESTIMATED BLOOD LOSS: Minimal. DRAINS: None. SPECIMENS: Sent to Pathology, left lower parathyroid gland, totally excised, completely submitted. COUNTS: Sponge and instrument counts were correct at the end of procedure. COMPLICATION: There was no intraoperative complication. Leydi Vance MD JJ:[id number] /[id number] [facility] SURGICAL PATHOLOGYon 023 CASE REPORT [facility] Comment on above: Order Comment: Speci men Type: TISSUE SPECIMENOrdering Facility: [facility] Address: [address] [place] [address] Result Comment: Surg [facility] Pathology Report Case: [id number] Authorizing Provider: Leydi Vance MD Collected: 02/08/2023 12:02 PM Ordering Location: [facility] Surgery Received: 02/08/2023 12:22 PM Pathologist: Dulce Maria Melendez MD Intraop: Petra Irwin MD Specimen: PARATHYROID GLAND LEFT, left lower [id number] Performed By: #### S ####[facility] [id number] [address] OF [facility] LAB[facility]ORY[facility] [id number] [address] STATES OF [facility] CLINICAL HISTORY [facility] Comment on above: Order Comment: Speci men Type: TISSUE SPECIMENOrdering Facility: [facility] Address: [address] [place] [address] Result Comment: Pre- op diagnosis: Primary hyperparathyroidism (HCC) [E21.0] Performed By: #### S ####[facility] [id number] [address] LABORATORYCLIA [id number] [address] FINAL DIAGNOSIS [facility] [facility] Comment on above: Order Comment: Speci men Type: TISSUE SPECIMENOrdering Facility: [facility] Address: [address] [place] [address] Result Comment: A. L eft lower parathyroid gland, totally excised, completely submitted: - Hypercellular parathyroid gland. SHEFALI February 12, 2023 Performed By: #### S ####[facility]CLIA [id number] [address] LABORATORYCLIA [id number] [address] FINAL PERFORMING LAB [facility] Comment on above: Order Comment: Speci men Type: TISSUE SPECIMENOrdering Facility: [facility] Address: [address] [place] [address] Result Comment: Diag nostic interpretation performed at [facility], [facility] [place] [address] CLIA# [id number] Printing Machine Mechanic: Milan Ortega M.D. Performed By: #### S ####[facility] LABCLIA [id number] [address] LABORATORYCLIA [id number] [address] GROSS DESCRIPTION [facility] Comment on above: Order Comment: Speci men Type: TISSUE SPECIMENOrdering Facility: [facility] Address: [address] [place] [address] Result Comment: A. P ARATHYROID GLAND LEFT FSA1: Received fresh for frozen section is one piece burns of soft tissue weighing 0.451 grams and measuring 1.5 X 1.2 x 0.5 cm. The specimen is entirely submitted for frozen section in FSA1. Gross examination performed at [facility], [address] [place] [address] CLIA# [id number] Performed By: #### S ####[facility] LABCLIA [id number] [address] LABORATORYCLIA [id number] [place] [address] [place] INTRAOPERATIVE DIAGNOSIS Normal [facility] Comment on above: Order Comment: Speci men Type: TISSUE SPECIMENOrdering Facility: [facility] Address: [address] [address] Result Comment: A. P ARATHYROID GLAND LEFT FSA1: Hypercellular parathyroid tissue (Petra Irwin MD) Intraoperative diagnosis performed at [facility], [address] [place] [address] CLIA# [id number] Performed By: #### S ####[facility] LABCLIA [id number] [address] LABORATORYCLIA [id number] [place] [address] [place] Basic metabolic 2000 panelon 01-31-2023 Anion gap [Moles/Vol] 12 mmol/L Normal 9-18 [facility] Comment on above: Order Comment: Speci men Type: BLOOD SPECIMEN [facility] Address: [address] [address] Performed By: #### 2 4321-2 #### [facility] CLIA [id number] [place] [address] [place] Calcium [Mass/Vol] 10.6 mg/dL High 8.5-10.2 [facility] Comment on above: Order Comment: Speci men Type: BLOOD SPECIMEN [facility] Address: [address] [address] Performed By: #### 2 4321-2 #### [facility] CLIA [id number] [address] [place] [address] [place] Chloride [Moles/Vol] 102 mmol/L Normal 97-105 [facility] Comment on above: Order Comment: Speci men Type: BLOOD SPECIMEN [facility] Address: [address] [address] Performed By: #### 2 4321-2 #### [facility] CLIA [id number] [address] [place] [address] [place] CO2 [Moles/Vol] 27 mmol/L Normal 22-30 [facility] Comment on above: Order Comment: Speci men Type: BLOOD SPECIMEN [facility] Address: [address] [place] [address] Performed By: #### 2 4321-2 #### [facility] CLIA [id number] [address] [place] [address] [place] Creatinine [Mass/Vol] 0.58 mg/dL Normal 0.58-0.96 [facility] Comment on above: Order Comment: Speci men Type: BLOOD SPECIMEN [facility] Address: [address] [place] [address] Performed By: #### 2 4321-2 #### [facility] CLIA [id number] [address] [place] [address] ESTIMATED GLOMERULAR FILTRATION RATE 95 mL/min/1.73m??? Normal >=60 [facility] Comment on above: Order Comment: Speci men Type: BLOOD SPECIMEN [facility] Address: [address] [place] [address] Result Comment: Sadaf mated Glomerular Filtration Rate (eGFR) is calculated using the 2020 CKD-EPI creatinine equation. This equation utilizes serum creatinine, sex, and age as parameters. The creatinine assay has traceable calibration to isotope dilution-mass spectrometry. Refer to KDIGO guidelines for clinical interpretation. In patients with unstable renal function, e.g. those with acute kidney injury, the eGFR may not accurately reflect actual GFR. Performed By: #### 2 4321-2 #### [facility] CLIA [id number] [address] [place] [address] [place] Glucose [Mass/Vol] 83 mg/dL Normal 74-99 [facility] Comment on above: Order Comment: Lon harris Type: BLOOD SPECIMEN [facility] Address: [address] [place] [address] Result Comment: The [place] Diabetes Association (ADA) provides guidance for cutoff values for fasting glucose and random glucose. The ADA defines fasting as no caloric intake for at least 8 hours. Fasting plasma glucose results between 100 to 125 mg/dL indicate increased risk for diabetes (prediabetes). Fasting plasma glucose results greater than or equal to 126 mg/dL meet the criteria for diagnosis of diabetes. In the absence of unequivocal hyperglycemia, results should be confirmed by repeat testing. In a patient with classic symptoms of hyperglycemia or hyperglycemic crisis, random plasma glucose results greater than or equal to 200 mg/dL meet the criteria for diagnosis of diabetes. Reference: Standards of Medical Care in Diabetes 2016, [place] Diabetes Association. Diabetes Care. 2016.39(Suppl 1). Performed By: #### 2 4321-2 #### [facility] [place] [id number] [address] [place] [address] [place] Potassium [Moles/Vol] 3.9 mmol/L Normal 3.7-5.1 [facility] Comment on above: Order Comment: Lon harris Type: BLOOD SPECIMEN [facility] Address: [address] [place] [address] Performed By: #### 2 4321-2 #### [facility] [place] [id number] [address] [place] [address] [place] Sodium [Moles/Vol] 141 mmol/L Normal 136-144 [facility] Comment on above: Order Comment: Lon harris Type: BLOOD SPECIMEN [facility] Address: [address] [place] [address] Performed By: #### 2 4321-2 #### [facility] CLIA [id number] [address] [place] [address] [place] Urea nitrogen [Mass/Vol] 8 mg/dL Normal 7- [facility] Comment on above: Order Comment: Speci men Type: BLOOD SPECIMEN [facility] Address: [address] Performed By: #### 2 4321-2 #### [facility] CLIA [id number] [address] [place] [address] [place] CBC W Auto Differential pane l (Bld)on 01-31-2023 Basophils (Bld) [#/Vol] 0.05 10*3/uL Normal <0.11 [facility] Comment on above: Order Comment: Speci men Type: BLOOD SPECIMEN [facility] Address: [address] [place] [address] Performed By: #### 5 7021-8 #### [facility] CLIA [id number] [address] [place] [address] [place] Basophils/100 WBC (Bld) 0.7 % Normal [facility] Comment on above: Order Comment: Speci men Type: BLOOD SPECIMEN [facility] Address: [address] [place], [place] [address] Performed By: #### 5 7021-8 #### [facility] CLIA [id number] [address] [place] [address] [place] Differential cell count method Nom (Bld) Auto Normal [facility] Comment on above: Order Comment: Speci men Type: BLOOD SPECIMEN [facility] Address: [address] Performed By: #### 5 7021-8 #### [facility] CLIA [id number] [address] [place] [address] [place] Eosinophils (Bld) [#/Vol] 0.30 10*3/uL Normal <0.46 [facility] Comment on above: Order Comment: Speci men Type: BLOOD SPECIMEN [facility] Address: [address] Performed By: #### 5 7021-8 #### [facility] CLIA [id number] [address] [place] [address] [place] Eosinophils/100 WBC (Bld) 4.2 % Normal [facility] Comment on above: Order Comment: Speci men Type: BLOOD SPECIMEN [facility] Address: [address] [place], [place] [address] Performed By: #### 5 7021-8 #### [facility] CLIA [id number] [address] [place] [address] [place] Erythrocyte distribution width (RBC) [Ratio] 13.2 % Normal 11.5-15.0 [facility] Comment on above: Order Comment: Speci men Type: BLOOD SPECIMEN [facility] Address: [address] [place], [place] [address] Performed By: #### 5 7021-8 #### [facility] CLIA [id number] [address] [place] [address] [place] Hematocrit (Bld) [Volume fraction] 45.4 % Normal 36.0-46.0 [facility] Comment on above: Order Comment: Speci men Type: BLOOD SPECIMEN [facility] Address: [address] [place], [place] [address] Performed By: #### 5 7021-8 #### [facility] CLIA [id number] [address] [place] [address] [place] Hemoglobin (Bld) [Mass/Vol] 14.2 g/dL Normal 11.5-15.5 [facility] Comment on above: Order Comment: Speci men Type: BLOOD SPECIMEN [facility] Address: [address] [place], [place] [address] Performed By: #### 5 7021-8 #### [facility] CLIA [id number] [address] [place] [address] [place] Immature granulocytes (Bld) [#/Vol] 0.06 10*3/uL Normal <0.10 [facility] Comment on above: Order Comment: Speci men Type: BLOOD SPECIMEN [facility] Address: [address] Performed By: #### 5 7021-8 #### [facility] CLIA [id number] [address] [place] [address] [place] Immature granulocytes/100 WBC (Bld) 0.8 % Normal [facility] Comment on above: Order Comment: Speci men Type: BLOOD SPECIMEN [facility] Address: [address] Performed By: #### 5 7021-8 #### [facility] CLIA [id number] [address] [place] [address] [place] Lymphocytes (Bld) [#/Vol] 1.99 10*3/uL Normal 1.00-4.00 [facility] Comment on above: Order Comment: Speci men Type: BLOOD SPECIMEN [facility] Address: [address] Performed By: #### 5 7021-8 #### [facility] CLIA [id number] [address] [place] [address] [place] Lymphocytes/100 WBC (Bld) 28.0 % Normal [facility] Comment on above: Order Comment: Speci men Type: BLOOD SPECIMEN [facility] Address: [address] Performed By: #### 5 7021-8 #### [facility] CLIA [id number] [address] [place] [address] [place] MCH (RBC) [Entitic mass] 30.0 pg Normal 26.0-34.0 [facility] Comment on above: Order Comment: Speci men Type: BLOOD SPECIMEN [facility] Address: [address] [place] [address] Performed By: #### 5 7021-8 #### [facility] CLIA [id number] [address] [place] [address] [place] MCHC (RBC) [Mass/Vol] 31.3 g/dL Normal 30.5-36.0 [facility] Comment on above: Order Comment: Speci men Type: BLOOD SPECIMEN [facility] Address: [address] Performed By: #### 5 7021-8 #### [facility] CLIA [id number] [address] [place] [address] [place] MCV (RBC) [Entitic vol] 95.8 fL Normal 80.0-100.0 [facility] Comment on above: Order Comment: Speci men Type: BLOOD SPECIMEN [facility] Address: [address] Performed By: #### 5 7021-8 #### [facility] CLIA [id number] [address] [place] [address] [place] Monocytes (Bld) [#/Vol] 0.57 10*3/uL Normal <0.87 [facility] Comment on above: Order Comment: Speci men Type: BLOOD SPECIMEN [facility] Address: [address] [place] [address] Performed By: #### 5 7021-8 #### [facility] CLIA [id number] [address] [place] Monocytes/100 WBC (Bld) 8.0 % Normal [facility] Comment on above: Order Comment: Speci men Type: BLOOD SPECIMEN [facility] Address: [address] [place] [address] Performed By: #### 5 7021-8 #### [facility] CLIA [id number] [address] [id number] [address] [place] Neutrophils (Bld) [#/Vol] 4.14 10*3/uL Normal 1.45-7.50 [facility] Comment on above: Order Comment: Speci men Type: BLOOD SPECIMEN [facility] Address: [address] [place] [address] Performed By: #### 5 7021-8 #### [facility] CLIA [id number] [address] [place] [address] [place] Neutrophils/100 WBC (Bld) 58.3 % Normal [facility] Comment on above: Order Comment: Speci men Type: BLOOD SPECIMEN [facility] Address: [address] [place], [place] [address] Performed By: #### 5 7021-8 #### [facility] CLIA [id number] [address] [place] [address] [place] Nucleated RBC (Bld) [#/Vol] 10*3/uL Normal <0.01 [facility] Comment on above: Order Comment: Speci men Type: BLOOD SPECIMEN [facility] Address: [address] [place], [place] [address] Performed By: #### 5 7021-8 #### [facility] CLIA [id number] [address] [place] [address] [place] Nucleated RBC/100 WBC (Bld) [Ratio] 0.0 /100 WBC Normal [facility] Comment on above: Order Comment: Speci men Type: BLOOD SPECIMEN [facility] Address: [address] [place], [place] [address] Performed By: #### 5 7021-8 #### [facility] CLIA [id number] [address] [place] [address] [place] Platelet mean volume (Bld) [Entitic vol] 11.0 fL Normal 9.0-12.7 [facility] Comment on above: Order Comment: Speci men Type: BLOOD SPECIMEN [facility] Address: [address] Performed By: #### 5 7021-8 #### [facility] CLIA [id number] [address] [place] [address] [facility] [place] Platelets (Bld) [#/Vol] 236 10*3/uL Normal 150-400 [facility] Comment on above: Order Comment: Speci men Type: BLOOD SPECIMEN [facility] Address: [address] Performed By: #### 5 7021-8 #### [facility] CLIA [id number] [address] [place] [address] [place] RBC (Bld) [#/Vol] 4.74 10*6/uL Normal 3.90-5.20 [facility] Comment on above: Order Comment: Speci men Type: BLOOD SPECIMEN [facility] Address: [address] [place], [place] [address] Performed By: #### 5 7021-8 #### [facility] CLIA [id number] [address] [place] [address] [place] WBC (Bld) [#/Vol] 7.11 10*3/uL Normal 3.70-11.00 [facility] Comment on above: Order Comment: Speci men Type: BLOOD SPECIMEN [facility] Address: [address] [place], [place] [address] Performed By: #### 5 7021-8 #### [facility] CLIA [id number] [address] [place] [address] [place] NM PARATHYROID W SPECT/CTon 01-31-2023 NM PARATHYROID W SPECT/CT * * *Final Report* * * DATE OF EXAM: Jan 31 2023 1:37PM MMN 0089 - NM PARATHYROID W SPECT/CT / PROCEDURE REASON: multiple diagnoses * * * * Physician Interpretation * * * * PARATHYROID SCAN : HISTORY: Hyperparathyroidism. TECHNIQUE: 236 microcuries of 123-I sodium iodide PO, followed by thyroid scan. 33.7 mCi Tc-99m sestamibi was given IV. SPECT imaging of the neck and chest was performed; anatomic mapping noncontrast CT imaging of the same body region was performed using 1 bed (39cm). CT Dose-Length Product (DLP): 225 mGy*cm. CT Dose Reduction Employed: Yes RESULT: The I-123 images demonstrate homogeneous uptake of activity by the thyroid, without focal thyroid abnormalities identified. SPECT images demonstrate focus of residual post-subtraction sestamibi activity in the bilateral neck. Coregistration of SPECT with CT images demonstrate that this activity is associated with bilateral thyroid lobes. No other areas of abnormal residual post-subtraction sestamibi activity are seen to suggest other possible sites for abnormal parathyroid tissue. Few scattered subcentimeter nodules in the bilateral lungs below the resolution of the study. Degenerative/compressive changes most pronounced in the lower thoracic spine. IMPRESSION: Mild sestamibi activity in the bilateral thyroid lobes. Otherwise no suspicious sites of abnormal parathyroid tissue identified. Mine Equipment Design Engineer: OBINNA Transcribe Date/Time: Jan 31 2023 3:24P Dictated by : AJ ROMERO MD This examination was interpreted and the report reviewed and electronically signed by: AJ ROMERO MD on Jan 31 2023 8:33PM EST [id number] Normal [facility] Parathyrin.intact [Mass/Vol] 81 pg/mL High 15-65 [facility] Comment on above: Order Comment: Speci men Type: BLOOD SPECIMEN [facility] Address: [address] [place] [address] Performed By: #### 2 731-8 #### [facility] CLIA [id number] [address] [place] [address] [place] XR Knee - bilateral 3 Viewso n 01-05-2023 * * *Final Report* * * DATE OF EXAM: Jan 03 2023 2:47PM ELISABET 5635 - XR KNEE 3V AP/LAT/CHRISSIE KIM / PROCEDURE REASON: multiple diagnoses * * * * Physician Interpretation * * * * PROCEDURE: Bilateral knees INDICATION: Pain in both knees, unspecified chronicity .follow up left knee, right knee pain TECHNIQUE: XR KNEE 3V AP/LAT/CHRISSIE KIM COMPARISON: 04/14/2020 FINDINGS: Right: Severe lateral and mild to moderate medial and patellofemoral joint compartment narrowing with tricompartment spur formation, mildly worse than previous. No fracture or significant joint effusion. Left knee: The total knee arthroplasty remains in satisfactory position without evidence for loosening. No periprosthetic fracture or joint effusion. [facility] Provider, Germán Leggett [facility] - 01/05/2023 * * *Final Report* * * DATE OF EXAM: Jan 03 2023 2:47PM O 5635 - XR KNEE 3V AP/LAT/CHRISSIE KIM / PROCEDURE REASON: multiple diagnoses * * * * Physician Interpretation * * * * PROCEDURE: Bilateral knees INDICATION: Pain in both knees, unspecified chronicity .follow up left knee, right knee pain TECHNIQUE: XR KNEE 3V AP/LAT/CHRISSIE KIM COMPARISON: 04/14/2020 FINDINGS: Right: Severe lateral and mild to moderate medial and patellofemoral joint compartment narrowing with tricompartment spur formation, mildly worse than previous. No fracture or significant joint effusion. Left knee: The total knee arthroplasty remains in satisfactory position without evidence for loosening. No periprosthetic fracture or joint effusion. IMPRESSION IMPRESSION: 1. Progressive right knee osteoarthrosis 2. Stable left TKA Mine Equipment Design Engineer: [facility]ADISONVILLELorenzo Transcribe Date/Time: Jan 05 2023 2:50P Dictated by : BERNA PEÑA MD This examination was interpreted and the report reviewed and electronically signed by: BERNA PEÑA MD on Jan 05 2023 2:51PM EST [facility] XR Knee - bilateral 3 ViewsO rdered By: [facility] Provider on 01-05-2023 [facility] XR KNEE 3V AP/LAT/CHRISSIE BILon 01-03-2023 XR KNEE 3V AP/LAT/CHRISSIE KIM * * *Final Report* * * DATE OF EXAM: Jan 03 2023 2:47PM MDO 5635 - XR KNEE 3V AP/LAT/CHRISSIE KIM / PROCEDURE REASON: multiple diagnoses * * * * Physician Interpretation * * * * PROCEDURE: Bilateral knees INDICATION: Pain in both knees, unspecified chronicity .follow up left knee, right knee pain TECHNIQUE: XR KNEE 3V AP/LAT/CHRISSIE KIM COMPARISON: 04/14/2020 FINDINGS: Right: Severe lateral and mild to moderate medial and patellofemoral joint compartment narrowing with tricompartment spur formation, mildly worse than previous. No fracture or significant joint effusion. Left knee: The total knee arthroplasty remains in satisfactory position without evidence for loosening. No periprosthetic fracture or joint effusion. IMPRESSION: 1. Progressive right knee osteoarthrosis 2. Stable left TKA 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 Transcribe Date/Time: Jan 05 2023 2:50P Dictated by : BERNA PEÑA MD This examination was interpreted and the report reviewed and electronically signed by: BERNA PEÑA MD on Jan 05 2023 2:51PM EST [id number] [facility] XR Knee - bilateral 3 Viewso n 01-03-2023 Radiology Study observation (narrative) [facility] Basic metabolic 2000 panelon 09-21-2022 Anion gap [Moles/Vol] 6 mmol/L Low 9 - 18 mmol/L [facility] Calcium [Mass/Vol] 10.3 mg/dL High 8.5 - 10. 2 mg/dL [facility] Chloride [Moles/Vol] 103 mmol/L 97 - 105 mmol/L [facility] CO2 [Moles/Vol] 29 mmol/L 22 - 30 mmol/L [facility] Creatinine [Mass/Vol] 0.60 mg/dL 0.58 - 0.96 mg/dL [facility] Estimated Glomerular Filtration Rate 94 mL/min/1.73m >=60 mL/min/1.73m [facility] Glucose [Mass/Vol] 98 mg/dL 74 - 99 mg/dL [facility] Potassium [Moles/Vol] 3.9 mmol/L 3.7 - 5.1 mmol/L [facility] Sodium [Moles/Vol] 138 mmol/L 136 - 144 mmol/L [facility] Urea nitrogen [Mass/Vol] 12 mg/dL 7 - 21 mg/dL [facility] URINE CULTUREon 08-18-2022 Bacteria identified Cx Nom (U) 10,000 -<50,000 CFU/ml Mixed microbiota Abnormal [facility] UA DIP, URINE (POC)on 2022 BILIRUBIN UA (POCT) Negative Negative [facility] CLARITY UA (POCT) Clear [facility] COLOR UA (POCT) Yellow [facility] GLUCOSE UA (POCT) Negative Negative mg/dL [facility] HEMOGLOBIN/BLOOD UA (POCT) Negative Negative [facility] KETONE UA (POCT) Trace Negative mg/dL [facility] LEUKOCYTES UA (POCT) Trace Abnormal Negative [facility] NITRITE UA (POCT) Negative Negative [facility] PH UA (POCT) 5.0 4.5 - 8.0 [facility] Protein Ql (U) Negative Negative mg/dL [facility] SPECIFIC GRAVITY UA (POCT) 1.015 1.005 - 1.030 [facility] UROBILINOGEN UA (POCT) 0.2 E.U./dL Normal E.U./dL [facility] Comprehensive metabolic 2000 panelon 08-14-2022 Albumin [Mass/Vol] 4.2 g/dL 3.9 - 4.9 g/dL Cl [facility] ALP [Catalytic activity/Vol] 132 U/L High 34 - 123 U/L [facility] ALT [Catalytic activity/Vol] 19 U/L 7 - 38 U/L [facility] Anion gap [Moles/Vol] 9 mmol/L 9 - 18 mmol/L [facility] AST [Catalytic activity/Vol] 22 U/L 13 - 35 U/L [facility] Bilirubin [Mass/Vol] 0.2 mg/dL 0.2 - 1.3 mg/dL [facility] Calcium [Mass/Vol] 10.6 mg/dL High 8.5 - 10. 2 mg/dL [facility] Chloride [Moles/Vol] 102 mmol/L 97 - 105 mmol/L [facility] CO2 [Moles/Vol] 30 mmol/L 22 - 30 mmol/L [facility] Creatinine [Mass/Vol] 0.53 mg/dL Low 0.58 - 0.96 mg/dL [facility] Estimated Glomerular Filtration Rate 97 mL/min/1.73m >=60 mL/min/1.73m [facility] Glucose [Mass/Vol] 92 mg/dL 74 - 99 mg/dL [facility] Potassium [Moles/Vol] 3.7 mmol/L 3.7 - 5.1 mmol/L [facility] Protein [Mass/Vol] 7.0 g/dL 6.3 - 8.0 g/dL Cl [facility] Sodium [Moles/Vol] 141 mmol/L 136 - 144 mmol/L [facility] Urea nitrogen [Mass/Vol] 9 mg/dL 7 - 21 mg/dL [facility] D-DIMERon 08-14-2022 Fibrin D-dimer FEU (PPP) [Mass/Vol] 2110 ng/mL FEU High <500 ng/mL FEU [facility] Fibrin D-dimer FEU (PPP) [Ma ss/Vol]on 08-14-2022 D Dimer Age-related Cutoff 740 ng/mL FEU [facility] Urinalysis complete panel (U )on 08-14-2022 Bilirubin Ql (U) Negative Negative [facility] Clarity (Unsp spec) Cloudy Abnormal Clear [facility] Color (U) Yellow Yellow [facility] Epithelial cells LM.HPF (Urine sed) [#/Area] Few [facility] Glucose Test strip (U) [Mass/Vol] Negative Trace, Negative [facility] Hemoglobin Ql (U) Negative Negative, Trace [facility] Ketones Ql (U) Negative Trace, Negative [facility] Leukocyte esterase Test strip Ql (U) 250 Myke/mL Abnormal Negative, 25 Myke/mL [facility] Nitrite Ql (U) Negative Negative [facility] pH (U) 7.5 [pH] 5.0 - 8.0 [facility] Protein (U) [Mass/Vol] Trace Trace, Negative [facility] RBC LM.HPF (Urine sed) [#/Area] 0-3 /HPF 0-3 /HPF [facility] Specific gravity (U) [Rel density] 1.013 1.005 - 1.030 [facility] Urobilinogen Ql (U) Negative Negative [facility] WBC LM.HPF (Urine sed) [#/Area] 11-25 /HPF Abnormal 0-5 /HPF [facility] CBC W Auto Differential pane l (Bld)on 08-13-2022 Basophils (Bld) [#/Vol] 0.04 10*3/uL <0.11 k/uL [facility] Basophils/100 WBC (Bld) 0.6 % [facility] Differential cell count method Nom (Bld) Auto [facility] Eosinophils (Bld) [#/Vol] 0.24 10*3/uL <0.46 k/uL [facility] Eosinophils/100 WBC (Bld) 3.8 % [facility] Erythrocyte distribution width (RBC) [Ratio] 12.5 % 11.5 - 15.0 % [facility] Hematocrit (Bld) [Volume fraction] 44.2 % 36.0 - 46.0 % [facility] Hemoglobin (Bld) [Mass/Vol] 14.0 g/dL 11.5 - 15.5 g/dL [facility] Immature granulocytes (Bld) [#/Vol] <0.10 k/uL [facility] Immature granulocytes/100 WBC (Bld) 0.2 % [facility] Lymphocytes (Bld) [#/Vol] 2.46 10*3/uL 1.00 - 4.00 k/uL [facility] Lymphocytes/100 WBC (Bld) 39.3 % [facility] MCH (RBC) [Entitic mass] 30.2 pg 26.0 - 34.0 pg [facility] MCHC (RBC) [Mass/Vol] 31.7 g/dL 30.5 - 36.0 g/dL [facility] MCV (RBC) [Entitic vol] 95.5 fL 80.0 - 100.0 fL [facility] Monocytes (Bld) [#/Vol] 0.45 10*3/uL <0.87 k/uL [facility] Monocytes/100 WBC (Bld) 7.2 % [facility] Neutrophils (Bld) [#/Vol] 3.06 10*3/uL 1.45 - 7.50 k/uL [facility] Neutrophils/100 WBC (Bld) 48.9 % [facility] Nucleated RBC (Bld) [#/Vol] <0.01 k/uL [facility] Nucleated RBC/100 WBC (Bld) [Ratio] 0.0 /100 WBC [facility] Platelet mean volume (Bld) [Entitic vol] 10.0 fL 9.0 - 12.7 fL [facility] Platelets (Bld) [#/Vol] 246 10*3/uL 150 - 400 k/uL [facility] RBC (Bld) [#/Vol] 4.63 10*6/uL 3.90 - 5.2 0 m/uL [facility] WBC (Bld) [#/Vol] 6.26 10*3/uL 3.70 - 11. 00 k/uL [facility] UA DIP, URINE (POC)on 2022 BILIRUBIN UA (POCT) Negative Negative [facility] CLARITY UA (POCT) Clear [facility] COLOR UA (POCT) Yellow [facility] GLUCOSE UA (POCT) Negative Negative mg/dL [facility] HEMOGLOBIN/BLOOD UA (POCT) Small Abnormal Negative [facility] KETONE UA (POCT) Negative Negative mg/dL [facility] LEUKOCYTES UA (POCT) Moderate Abnormal Negative [facility] NITRITE UA (POCT) Negative Negative [facility] PH UA (POCT) 6.0 4.5 - 8.0 [facility] Protein Ql (U) Negative Negative mg/dL [facility] SPECIFIC GRAVITY UA (POCT) <=1.005 Abnormal 1.005 - 1.030 [facility] UROBILINOGEN UA (POCT) 0.2 E.U./dL Normal E.U./dL [facility] UA DIP, URINE (POC)on 2021 BILIRUBIN UA (POCT) Negative Negative [facility] CLARITY UA (POCT) Cloudy [facility] COLOR UA (POCT) Yellow [facility] GLUCOSE UA (POCT) Negative Negative mg/dL [facility] HEMOGLOBIN/BLOOD UA (POCT) Moderate Abnormal Negative [facility] KETONE UA (POCT) Negative Negative mg/dL [facility] LEUKOCYTES UA (POCT) Large Abnormal Negative [facility] NITRITE UA (POCT) Positive Abnormal Negative [facility] PH UA (POCT) 6.0 4.5 - 8.0 [facility] Protein Ql (U) 100 mg/dL Abnormal Negative mg/dL [facility] SPECIFIC GRAVITY UA (POCT) 1.020 1.005 - 1.030 [facility] UROBILINOGEN UA (POCT) 0.2 E.U./dL Normal E.U./dL [facility] Comprehensive metabolic 2000 panelon 04-13-2022 Albumin [Mass/Vol] 4.1 g/dL 3.9 - 4.9 g/dL [facility] ALP [Catalytic activity/Vol] 128 U/L High 34 - 123 U/L [facility] ALT [Catalytic activity/Vol] 44 U/L High 7 - 38 U/L [facility] Anion gap [Moles/Vol] 10 mmol/L 9 - 18 mmol/L [facility] AST [Catalytic activity/Vol] 60 U/L High 13 - 35 U/L [facility] Bilirubin [Mass/Vol] Low 0.2 - 1.3 mg/dL [facility] Calcium [Mass/Vol] 10.2 mg/dL 8.5 - 10. 2 mg/dL [facility] Chloride [Moles/Vol] 102 mmol/L 97 - 105 mmol/L [facility] CO2 [Moles/Vol] 28 mmol/L 22 - 30 mmol/L [facility] Creatinine [Mass/Vol] 0.82 mg/dL 0.58 - 0.96 mg/dL [facility] Estimated Glomerular Filtration Rate 75 mL/min/1.73m >=60 mL/min/1.73m [facility] Glucose [Mass/Vol] 82 mg/dL 74 - 99 mg/dL [facility] Potassium [Moles/Vol] 3.4 mmol/L Low 3.7 - 5.1 mmol/L [facility] Protein [Mass/Vol] 6.5 g/dL 6.3 - 8.0 g/dL [facility] Sodium [Moles/Vol] 140 mmol/L 136 - 144 mmol/L [facility] Urea nitrogen [Mass/Vol] 13 mg/dL 7 - 21 mg/dL [facility] GGT BLDon 04-13-2022 Gamma glutamyl transferase [Catalytic activity/Vol] 55 U/L High 6 - 46 U/L [facility] No Panel Informationon 02-07 [facility] XR Hand - right PA and Later al and Obliqueon 05-08-2021 IMPRESSION: Radiogra phic findings suggest osteoarthritis. Chondrocalcinosis. Mine Equipment Design Engineer: OBINNA Transcribe Date/Time: May 08 2021 5:48P Dictated by : GRISELDA HORN MD This examination was interpreted and the report reviewed and electronically signed by: GRISELDA HORN MD on May 08 2021 5:52PM [facility] DIVISION OF RADIOLOGY * * *Final Report* * * DATE OF EXAM: May 08 2021 5:47PM WOX [id number] - XR HAND 3V PA/LAT/OBL RT / PROCEDURE REASON: Right hand pain * * * * Physician Interpretation * * * * EXAMINATION: XR HAND 3V PA/LAT/OBL RT HISTORY: Dorsal right hand pain after feeling a pop yesterday with a hyperextension move. Right hand pain. TECHNIQUE: XR HAND 3V PA/LAT/OBL RT Laterality: RIGHT Number of different views (projections): 3 M: XB_1 COMPARISON: There are no prior relevant examinations available for comparison within the [facility] Imaging Archives. RESULT: AP, lateral and oblique views of the right hand shows no acute osseous, articular or soft tissue abnormality. There is mild degenerative change with asymmetric joint space narrowing and periarticular osteophytosis involving the distal interphalangeal joints of the second through fifth digits and the interphalangeal joint of the thumb. There is severe joint space narrowing, subchondral sclerosis and marginal spurring of the first metacarpal carpal joint. Findings are compatible with osteoarthritis. There is calcification of the articular cartilage and the triangular fibrocartilage suggesting a crystalline deposition process such as CPPD (pseudogout). There's subchondral cystic lucencies about the ulnar styloid which could represent remote healed erosions or subchondral cyst formation. DIVISION OF RADIOLOGY Provider, [facility] - 05/08/2021 * * *Final Report* * * DATE OF EXAM: May 08 2021 5:47PM WOX [id number] - XR HAND 3V PA/LAT/OBL RT / PROCEDURE REASON: Right hand pain * * * * Physician Interpretation * * * * EXAMINATION: XR HAND 3V PA/LAT/OBL RT HISTORY: Dorsal right hand pain after feeling a pop yesterday with a hyperextension move. Right hand pain. TECHNIQUE: XR HAND 3V PA/LAT/OBL RT Laterality: RIGHT Number of different views (projections): 3 M: XB_1 COMPARISON: There are no prior relevant examinations available for comparison within the [facility] Imaging Archives. RESULT: AP, lateral and oblique views of the right hand shows no acute osseous, articular or soft tissue abnormality. There is mild degenerative change with asymmetric joint space narrowing and periarticular osteophytosis involving the distal interphalangeal joints of the second through fifth digits and the interphalangeal joint of the thumb. There is severe joint space narrowing, subchondral sclerosis and marginal spurring of the first metacarpal carpal joint. Findings are compatible with osteoarthritis. There is calcification of the articular cartilage and the triangular fibrocartilage suggesting a crystalline deposition process such as CPPD (pseudogout). There's subchondral cystic lucencies about the ulnar styloid which could represent remote healed erosions or subchondral cyst formation. IMPRESSION IMPRESSION: Radiographic findings suggest osteoarthritis. Chondrocalcinosis. Mine Equipment Design Engineer: OBINNA Transcribe Date/Time: May 08 2021 5:48P Dictated by : GRISELDA HORN MD This examination was interpreted and the report reviewed and electronically signed by: GRISELDA HORN MD on May 08 2021 5:52PM EST [facility] Radiology Study observation (narrative) [facility] XR Hand - right PA and Later al and ObliqueOrdered By: Ccf Provider on 05-08-2021 [facility] XR Chest PA and Lateralon IMPRESSION: No acute radiographic abnormality. Mine Equipment Design Engineer: OBINNA Transcribe Date/Time: Apr 19 2021 4:26P Dictated by : CR NARAYAN MD This examination was interpreted and the report reviewed and electronically signed by: CR NARAYAN MD on Apr 19 2021 4:27PM [facility] DIVISION OF RADIOLOGY * * *Final Report* * * DATE OF EXAM: Apr 19 2021 4:08PM WOX 5291 - XR CHEST 2V FRONTAL/LAT / PROCEDURE REASON: Dry cough * * * * Physician Interpretation * * * * EXAMINATION: CHEST RADIOGRAPH (2 VIEW FRONTAL & LATERAL) CLINICAL HISTORY: Dry cough MQ: XC2_6 EXAM DATE/TIME: 04/19/2021 4:08 PM COMPARISON: 07/04/2009. RESULT: Lines, tubes, and devices: None. Lungs and pleura: Shallow lung volumes. No consolidation. No lung mass. No pleural effusion. No pneumothorax. Cardiomediastinal silhouette: The cardiomediastinal silhouette is mildly enlarged. Bones and soft tissues: Degenerative changes are present within the thoracic spine. DIVISION OF RADIOLOGY Provider, [facility] Oleksandr Nicole - 04/19/2021 * * *Final Report* * * DATE OF EXAM: Apr 19 2021 4:08PM WOX 5291 - XR CHEST 2V FRONTAL/LAT / PROCEDURE REASON: Dry cough * * * * Physician Interpretation * * * * EXAMINATION: CHEST RADIOGRAPH (2 VIEW FRONTAL & LATERAL) CLINICAL HISTORY: Dry cough MQ: XC2_6 EXAM DATE/TIME: 04/19/2021 4:08 PM COMPARISON: 07/04/2009. RESULT: Lines, tubes, and devices: None. Lungs and pleura: Shallow lung volumes. No consolidation. No lung mass. No pleural effusion. No pneumothorax. Cardiomediastinal silhouette: The cardiomediastinal silhouette is mildly enlarged. Bones and soft tissues: Degenerative changes are present within the thoracic spine. IMPRESSION IMPRESSION: No acute radiographic abnormality. 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 Transcribe Date/Time: Apr 19 2021 4:26P Dictated by : CR NARAYAN MD This examination was interpreted and the report reviewed and electronically signed by: CR NARAYAN MD on Apr 19 2021 4:27PM EST [facility] Radiology Study observation (narrative) [facility] XR Chest PA and LateralOrder ed By: Ccf Provider on [facility]-19-[facility]21 [facility] CNPN Telephone (FVPRAD) Annemarie FREDERICK ( ) 1950 FDate Time Provider [id number]/18/17 ANTONIO GAUTHIER (LUDWIG) FVPRAD During your visit today, we recorded the following information about you:Antonio Gauthier MD 07/08/2017 4:49 PM SignedCalled patient to recruit for [facility] research study - IRB#: [id number];A randomized-controlled trial of postoperative opiate quantities afterurgynecologic surgery, PI: Antonio Gauthier MDHowever, patient states that she takes narcotics weekly for chronic arthritis.Patient excluded from the study.Narcotics were not on the patient's medication list -- will forward this noteto the patient's primary Urogynecologist.Allergie s As of Date: 07/08/2017 Noted Allergy ReactionFLAGYL (METRONIDAZOLE) 03/26/2017 8 - GI Upset Comments: Severe nausea, malaise, dizziness and GI upsetHCTZ (THIAZIDES) 08/14/2015 14 - Other: See Comments Comments: hypercalcemiaDate Reviewed: 06/24/2017Reviewed by: Opal Mcdaniel Ma - Fully AssessedReason for Visit: Research Recruitment [Other]Prescriptions as of 07/08/2017 Sig: ATORVASTATIN 10 MG TABLET Take 1 tablet by mouth once d* GABAPENTIN 300 MG CAPSULE Take 1 capsule by mouth three* FAMOTIDINE 40 MG TABLET Take 1 tablet by mouth once d* TROSPIUM 20 MG TABLET Take 1 Tablet Twice Daily In * FUROSEMIDE 20 MG TABLET Take 2 tablets by mouth once * POTASSIUM CHLORIDE ER 10 MEQ * Take 1 tablet by mouth once d* VANCOMYCIN 125 MG CAPSULE Take 125 mg by mouth four devi* AMITRIPTYLINE 75 MG TABLET Take 1 tablet by mouth daily * TRETINOIN 0.025 % TOPICAL CRE* Apply to affected area on lef* DILTIAZEM SR 300 MG 24 HR CAP Take 1 capsule by mouth once * ERGOCALCIFEROL (VITAMIN D2) 5* Take 1 capsule by mouth every* COMPOUNDED PRESCRIPTION 736.79 AFO left foot Dx. lef* * MULTIVITAMIN TABLET Take one(1) tablet daily. 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 Vitamin D deficiency [E55.9] INVALID FOR* UTERINE LEIOMYOMA NOS [D25.9] INVALID FOR* Morbid Obesity [E66.01] INVALID FOR* Stomach Ulcer NOS, Obst [K25.9] INVALID FOR* Osteoarth NOS-l/leg [M17.10] INVALID FOR* Degenerative arthritis of left knee [M17.12] INVALID FOR* Pes anserinus bursitis of left knee [M70.52] INVALID FOR* Osteopenia [M85.80] INVALID FOR* More... HLD (hyperlipidemia) [E78.5] INVALID FOR* OAB (overactive bladder) [N32.81] INVALID FOR* Left spastic hemiparesis (HCC) [G81.14] INVALID FOR* Special screening for malignant neoplasms, colo*INVALID FOR* Primary osteoarthritis involving multiple joint*INVALID FOR* Difficulty swallowing solids [R13.10] INVALID FOR* Cerebrovascular accident (CVA) due to thrombosi*INVALID FOR* Chronic bilateral low back pain without sciatic*INVALID FOR* Incomplete uterovaginal prolapse [N81.2] INVALID FOR* Pelvic organ prolapse quantification stage 2 cy*INVALID FOR* More... Status:Closed by ANTONIO GAUTHIER MD on 07/08/17 [employer] Large Joint Arthro/Inj: R kn ee joint [facility] Vital Signs Date Time Vital Sign Value Performing Clinician Facility 05-06-2024 [id number] Body height 152.4 cm Hayden Flanagan MD Work Phone: [facility] 05-06-2024 15:19-0400 Body mass index (BMI) [Ratio] 39.31 kg/m2 Hayden Flanagan MD Work Phone: [facility] 05-06-2024 15:19-0400 Body weight 91.3 kg Hayden Flanagan MD Work Phone: [facility] 05-06-2024 15:19-0400 Diastolic blood pressure 80 mm[Hg] Hayden Flanagan MD Work Phone: [facility] 05-06-2024 15:19-0400 Heart rate 91 /min Hayden Flanagan MD Work Phone: [facility] 05-06-2024 15:19-0400 SaO2% (BldA) [Mass fraction] 96 % Hayden Flanagan MD Work Phone: [facility] 05-06-2024 15:19-0400 Systolic blood pressure 137 mm[Hg] Hayden Flanagan MD Work Phone: [facility] 04-14-2024 13:02-0400 Body mass index (BMI) [Ratio] 38.75 kg/m2 Kassandra Reidlogthomas [employer] Work Phone: [facility] 04-14-2024 13:02-0400 Body weight 90 kg Kassandra Podlogthomas [employer] Work Phone: [facility] 04-14-2024 13:02-0400 Diastolic blood pressure 82 mm[Hg] Kassandra Podlogar [employer] Work Phone: [facility] 04-14-2024 13:02-0400 Heart rate 97 /min Kassandra Podlogar [employer] Work Phone: [facility] 04-14-2024 13:02-0400 Respiratory rate 18 /min Kassandra Podlogar [employer] Work Phone: [facility] 04-14-2024 13:02-0400 SaO2% (BldA) [Mass fraction] 94 % Kassandra Podlogar [employer] Work Phone: [facility] 04-14-2024 13:02-0400 Systolic blood pressure 130 mm[Hg] Kassandra Podlogar [employer] Work Phone: [facility] 01-09-2024 14:40-0400 Diastolic blood pressure 70 mm[Hg] Shorty Teresa MD Work Phone: [facility] Comment on above: recheck 01-09-2024 14:40-0400 Systolic blood pressure 132 mm[Hg] Shorty Teresa MD Work Phone: [facility] Comment on above: recheck 01-09-2024 13:13-0400 Body mass index (BMI) [Ratio] 39.72 kg/m2 Shorty Teresa MD Work Phone: [facility] 01-09-2024 13:13-0400 Body weight 92.26 kg Shorty Teresa MD Work Phone: [facility] 01-09-2024 13:13-0400 Heart rate 84 /min Shorty Teresa MD Work Phone: [facility] 01-09-2024 13:13-0400 Respiratory rate 16 /min Shorty Teresa MD Work Phone: [facility] 01-09-2024 13:13-0400 SaO2% (BldA) [Mass fraction] 98 % Shorty Teresa MD Work Phone: [facility] 06-19-2023 13:42-0500 Body weight 92.99 kg Kassandra Podlogar [employer] Work Phone: [facility] 06-19-2023 13:42-0500 Diastolic blood pressure 80 mm[Hg] Kassandra Podlogar [employer] Work Phone: [facility] 06-19-2023 13:42-0500 Heart rate 90 /min Kassandra Podlogar [employer] Work Phone: [facility] 06-19-2023 13:42-0500 Respiratory rate 18 /min Kassandra Podlogar [employer] Work Phone: [facility] 06-19-2023 13:42-0500 SaO2% (BldA) [Mass fraction] 91 % Kassandra Podlogar [employer] Work Phone: [facility] 06-19-2023 13:42-0500 Systolic blood pressure 136 mm[Hg] Kassandra Podlogar [employer] Work Phone: [facility] 05-29-2023 16:09-0500 Body height 152.4 cm Hayden Flanagan MD Work Phone: [facility] 05-29-2023 16:09-0500 Body weight 94.6 kg Hayden Flanagan MD Work Phone: [facility] 05-29-2023 16:09-0500 Diastolic blood pressure 75 mm[Hg] Hayden Flanagan MD Work Phone: [facility] 05-29-2023 16:09-0500 Heart rate 95 /min Hayden Flanagan MD Work Phone: [facility] 05-29-2023 16:09-0500 SaO2% (BldA) [Mass fraction] 96 % Hayden Flanagan MD Work Phone: [facility] 05-29-2023 16:09-0500 Systolic blood pressure 135 mm[Hg] Hayden Flanagan MD Work Phone: [facility] 01-31-2023 10:40-0400 SaO2% (BldA) [Mass fraction] 97 % Pacc 2 Work Phone: [facility] 01-31-2023 09:43-0400 Body height 152.4 cm Pacc 2 Work Phone: [facility] 01-31-2023 09:43-0400 Body temperature 97.59 [degF] Pacc 2 Work Phone: [facility] 01-31-2023 09:43-0400 Body weight 94.44 kg Pacc 2 Work Phone: [facility] 01-31-2023 09:43-0400 Diastolic blood pressure 69 mm[Hg] Pacc 2 Work Phone: [facility] 01-31-2023 09:43-0400 Heart rate 81 /min Pacc 2 Work Phone: [facility] 01-31-2023 09:43-0400 Respiratory rate 17 /min Pacc 2 Work Phone: [facility] 01-31-2023 09:43-0400 Systolic blood pressure 142 mm[Hg] Pacc 2 Work Phone: [facility] 11-26-2022 13:34-0400 Diastolic blood pressure 65 mm[Hg] Leydi Vance MD Work Phone: [facility] 11-26-2022 13:34-0400 Heart rate 81 /min Leydi Vance MD Work Phone: [facility] 11-26-2022 13:34-0400 Systolic blood pressure 125 mm[Hg] Leydi Vance MD Work Phone: [facility] 11-13-2022 14:02-0400 Diastolic blood pressure 72 mm[Hg] Shorty Teresa MD Work Phone: [facility] 11-13-2022 14:02-0400 Heart rate 88 /min Shorty Teresa MD Work Phone: [facility] 11-13-2022 14:02-0400 Respiratory rate 16 /min Shorty Teresa MD Work Phone: [facility] 11-13-2022 14:02-0400 SaO2% (BldA) [Mass fraction] 96 % Shorty Teresa MD Work Phone: [facility] 11-13-2022 14:02-0400 Systolic blood pressure 138 mm[Hg] Shorty Teresa MD Work Phone: [facility] 09-12-2022 16:15-0500 Body height 152.4 cm Hayden Flanagan MD Work Phone: [facility] 09-12-2022 16:15-0500 Body weight 92.44 kg Hayden Flanagan MD Work Phone: [facility] 09-12-2022 16:15-0500 Diastolic blood pressure 75 mm[Hg] Hayden Flanagan MD Work Phone: [facility] 09-12-2022 16:15-0500 Heart rate 87 /min Hayden Flanagan MD Work Phone: [facility] 09-12-2022 16:15-0500 SaO2% (BldA) [Mass fraction] 97 % Hayden Flanagan MD Work Phone: [facility] 09-12-2022 16:15-0500 Systolic blood pressure 135 mm[Hg] Hayden Flanagan MD Work Phone: [facility] 08-17-2022 15:34-0500 Body height 152.4 cm Wagner Roldan PA-C Work Phone: [facility] 08-17-2022 15:34-0500 Body temperature 97.59 [degF] Wagner Roldan PA-C Work Phone: [facility] 08-17-2022 15:34-0500 Body weight 89.36 kg Wagnermorgan Roldan PA-C Work Phone: [facility] 08-17-2022 15:34-0500 Diastolic blood pressure 68 mm[Hg] Wagner Roldan PA-C Work Phone: [facility] 08-17-2022 15:34-0500 Heart rate 104 /min Wagner Roldan PA-C Work Phone: [facility] 08-17-2022 15:34-0500 Respiratory rate 16 /min Wagner Roldan PA-C Work Phone: [facility] 08-17-2022 15:34-0500 SaO2% (BldA) [Mass fraction] 97 % Wagner Roldan PA-C Work Phone: [facility] 08-17-2022 15:34-0500 Systolic blood pressure 144 mm[Hg] Wagner Roldan PA-C Work Phone: [facility] 08-13-2022 16:03-0500 Diastolic blood pressure 78 mm[Hg] Shorty Teresa MD Work Phone: [facility] 08-13-2022 16:03-0500 Systolic blood pressure 138 mm[Hg] Shorty Teresa MD Work Phone: [facility] 08-13-2022 15:16-0500 Body weight 89.45 kg Shorty Teresa MD Work Phone: [facility] 08-13-2022 15:16-0500 Heart rate 91 /min Shorty Teresa MD Work Phone: [facility] 08-13-2022 15:16-0500 Respiratory rate 18 /min Shorty Teresa MD Work Phone: [facility] 08-13-2022 15:16-0500 SaO2% (BldA) [Mass fraction] 97 % Shorty Teresa MD Work Phone: [facility] 07-26-2022 18:35-0500 Body temperature 98.01 [degF] Donnell Braden MD Work Phone: [facility] 07-26-2022 18:35-0500 Body weight 84.37 kg Donnell Braden MD Work Phone: [facility] 07-26-2022 18:35-0500 Diastolic blood pressure 84 mm[Hg] Donnell Braden MD Work Phone: [facility] 07-26-2022 18:35-0500 Heart rate 62 /min Donnell Braden MD Work Phone: [facility] 07-26-2022 18:35-0500 Respiratory rate 18 /min Donnell Braden MD Work Phone: [facility] 07-26-2022 18:35-0500 SaO2% (BldA) [Mass fraction] 95 % Donnell Braden MD Work Phone: [facility] 07-26-2022 18:35-0500 Systolic blood pressure 138 mm[Hg] Donnell Braden MD Work Phone: [facility] 07-09-2022 18:01-0500 Body temperature 97.81 [degF] Elly Athy PA-C Work Phone: [facility] 07-09-2022 18:01-0500 Body weight 84.37 kg Elly Athy PA-C Work Phone: [facility] 07-09-2022 18:01-0500 Diastolic blood pressure 86 mm[Hg] Elly Athy PA-C Work Phone: [facility] 07-09-2022 18:01-0500 Heart rate 89 /min Elly Athy PA-C Work Phone: [facility] 07-09-2022 18:01-0500 Respiratory rate 20 /min Elly Athy PA-C Work Phone: [facility] 07-09-2022 18:01-0500 SaO2% (BldA) [Mass fraction] 95 % Elly Athy PA-C Work Phone: [facility] 07-09-2022 18:01-0500 Systolic blood pressure 158 mm[Hg] Elly Athy PA-C Work Phone: [facility] 12-05-2021 19:23-0400 Body weight 83.83 kg Shorty Teresa MD Work Phone: [facility] 12-05-2021 19:23-0400 Diastolic blood pressure 58 mm[Hg] Shorty Teresa MD Work Phone: [facility] 12-05-2021 19:23-0400 Heart rate 80 /min Shorty Teresa MD Work Phone: [facility] 12-05-2021 19:23-0400 Respiratory rate 18 /min Shorty Teresa MD Work Phone: [facility] 12-05-2021 19:23-0400 SaO2% (BldA) [Mass fraction] 96 % Shorty Teresa MD Work Phone: [facility] 12-05-2021 19:23-0400 Systolic blood pressure 110 mm[Hg] Shorty Teresa MD Work Phone: [facility] Encounters Encounter Date Encounter Type Care Provider Facility Start: 05-06-2024 End: 05-06-2024 ambulatory HAYDEN FLANAGAN Facility:[facility] Start: 05-06-2024 End: 05-06-2024 Patient encounter procedure Hayden Flanagan MD Work Phone: Endocrinology Comment on above: Osteoporosis without current pathological fracture, unspecified osteoporosis type (Primary Dx); Hyperparathyroidism (HCC) Start: 04-30-2024 End: 04-30-2024 Telephone encounter Shorty Teresa MD Work Phone: [facility] [place] Comment on above: Results Start: 04-14-2024 End: 04-14-2024 Patient encounter procedure Kassandra Sharma APRN.CNP Work Phone: [facility] [place] Comment on above: Mixed hyperlipidemia (Primary Dx); Encounter for immunization; Venous incompetence; Left spastic hemiparesis (HCC); Hyperparathyroidism (HCC); Obesity, Class II, BMI 35-39.9; OAB (overactive bladder); Gastroesophageal reflux disease, unspecified whether esophagitis present; Migraine without aura and without status migrainosus, not intractable; Other osteoporosis, unspecified pathological fracture presence Start: 04-14-2024 End: 04-14-2024 ambulatory SHORTY TERESA Facility:[facility] Start: 04-09-2024 End: 04-09-2024 Refill Shorty Teresa MD Work Phone: [facility] [place] Comment on above: Refill Request Start: 03-20-2024 End: 03-20-2024 Refill Shorty Teresa MD Work Phone: [facility] Comment on above: Refill Request Start: 02-03-2024 End: 02-03-2024 ambulatory HAYDEN FLANAGAN Facility:[facility] Start: 02-03-2024 End: 02-03-2024 Subsequent hospital visit by physician Bone Density [facility] Work Phone: Radiology Comment on above: Hyperparathyroidism (HCC) [E21.3] Start: 01-13-2024 Refill Shorty Teresa MD Work Phone: [facility] [place] Comment on above: Refill Request Start: 01-10-2024 Telephone encounter Miguel Teresa MD Work Phone: [facility] Comment on above: location change of p hysical therapy Start: 01-09-2024 End: 01-09-2024 ambulatory SHORTY TERESA Facility:[facility] Start: 01-09-2024 End: 01-09-2024 Patient encounter procedure Shorty Teresa MD Work Phone: [facility] [place] Comment on above: Medicare annual well ness visit, subsequent (Primary Dx); Osteopenia, unspecified location; Unsteady gait when walking; At high risk for falls; Encounter for immunization; Decreased visual acuity Start: 01-02-2024 End: 01-02-2024 ambulatory ARNOL JONAS Facility:[facility] Start: 01-02-2024 End: 01-02-2024 Patient encounter procedure Arnol Jonas MD Work Phone: Orthopaedics Comment on above: Primary osteoarthrit is of right knee (Primary Dx) Start: 12-23-2023 Refill Shorty Teresa MD Work Phone: [facility] Comment on above: Refill Request Start: 11-26-2023 Telephone encounter Manuel Silver gaytan PCT.[employer] Work Phone: Orthopaedics Comment on above: Patient Update Start: 11-15-2023 Telephone encounter Arnol sanders MD Work Phone: Orthopaedics Comment on above: Appointment; Jeff sanders Authorization (Prior Auth Delayed: Additional Info Needed (Visco)) Start: 11-06-2023 ambulatory Tamara Khan [facility] [place] [facility] [place] Comment on above: Population Health Na vigation Outreach ([facility] HCC/CARE [facility]) Start: 08-28-2023 End: 08-28-2023 ambulatory SHORTY TERESA Facility:[facility] Start: 08-14-2023 End: 08-14-2023 ambulatory [facility] Start: 08-12-2023 End: 08-12-2023 ambulatory [facility] Facility:[facility] Start: 07-23-2023 End: 07-23-2023 Subsequent hospital visit by physician Xr [facility] Work Phone: Radiology Comment on above: Suspected COVID-19 v irus infection [Z20.822] Start: 07-23-2023 End: 07-23-2023 ambulatory SHORTY TERESA Facility:[facility] Start: 06-19-2023 End: 06-19-2023 Patient encounter procedure Kassandra Sharma APRN.[employer] Work Phone: [facility] Comment on above: Mixed hyperlipidemia (Primary Dx); Immunization due; Leg swelling; Hyperparathyroidism ([facility]); Migraine without aura and without status migrainosus, not intractable; Gastroesophageal reflux disease, unspecified whether esophagitis present; OAB (overactive bladder); Obesity, Class III, BMI 40-49.9 (morbid obesity) ([facility]) Start: 06-19-2023 End: 06-19-2023 ambulatory SHORTY TERESA Facility:[facility] Start: 05-29-2023 End: 05-29-2023 Patient encounter procedure Hayden Flanagan MD Work Phone: Endocrinology Comment on above: Hyperparathyroidism (HCC) (Primary Dx); Osteoporosis without current pathological fracture, unspecified osteoporosis type Start: 05-29-2023 End: 05-29-2023 ambulatory HAYDEN FLANAGAN Facility:[facility] Start: 05-28-2023 End: 05-28-2023 ambulatory ARNOL JONAS Facility:[facility] Start: 05-17-2023 Documentation procedure Mammog lauri Coordinator [facility] Start: 05-17-2023 Letter encounter Mammography Coordinator [facility] Department Start: 05-16-2023 End: 05-16-2023 ambulatory SHORTY TERESA Facility:[facility] Start: 05-16-2023 End: 05-16-2023 Subsequent hospital visit by physician Screen Mammo [facility] Mammogram Comment on above: Screening mammogram for breast cancer [Z12.31] Start: 04-12-2023 Telephone encounter Miguel Teresa MD Work Phone: [facility] Comment on above: Mammogram Order Start: 03-20-2023 Refill Shorty Teresa MD Work Phone: [facility] Comment on above: Refill Request Start: 02-20-2023 Telephone encounter Leydi Tracy Work Phone: Endocrine Surgery Start: 02-08-2023 End: 02-09-2023 ambulatory [facility] Facility:[facility] Start: 02-04-2023 Orders Only Leydi Vance MD Work Phone: Endocrine Surgery Comment on above: Hyperparathyroidism (HCC) (Primary Dx) Start: 01-31-2023 End: 02-01-2023 ambulatory LEYDI [facility] Facility:[facility] Start: 01-31-2023 ambulatory [facility] Facility:[facility] Start: 01-31-2023 End: 01-31-2023 Subsequent hospital visit by physician Parveen Thyroid [facility] Imaging Comment on above: Primary hyperparathy roidism (HCC) [E21.0] Start: 01-31-2023 End: 01-31-2023 Admission to [place] [id number] Work Phone: [facility] Start: 01-31-2023 End: 01-31-2023 ambulatory [facility] 2 Work Phone: Pre Anesthesia Comment on above: Pre-op evaluation (P rimary Dx); Obesity, Class III, BMI 40-49.9 (morbid obesity) (HCC); Cerebrovascular accident (CVA) due to thrombosis of right middle cerebral artery (HCC); Migraine without aura and without status migrainosus, not intractable; Gastroesophageal reflux disease, unspecified whether esophagitis present; OAB (overactive bladder); Mixed hyperlipidemia; Venous incompetence Start: 01-31-2023 End: 01-31-2023 Preprocedural examination done [facility] 2 Work Phone: [facility] Work Phone: Start: 01-31-2023 End: 01-31-2023 Subsequent hospital visit by physician Parveen [facility] Molecular Imaging Start: 01-03-2023 ambulatory UNKNOWN PROVIDER Facili ty:[facility] Start: 01-03-2023 End: 01-03-2023 Patient encounter procedure Arnol Jonas MD Work Phone: Orthopaedics Comment on above: Primary osteoarthrit is of right knee (Primary Dx) Start: 01-03-2023 End: 01-03-2023 Subsequent hospital visit by physician [facility] Work Phone: Radiology Comment on above: Pain in both knees, unspecified chronicity [M25.561, M25.562] Start: 12-19-2022 Refill Shorty Teresa MD Work Phone: [facility] Comment on above: Refill Request Start: 12-03-2022 ambulatory Leydi Vance MD Work Phone: Endocrine Surgery Comment on above: preop pacc / OR MM 0 02/08/23 (Parathyroidectomy /) Start: 11-26-2022 End: 11-26-2022 Orders Only Leydi Vance MD Work Phone: Endocrine Surgery Comment on above: Primary hyperparathy roidism (HCC) (Primary Dx) Hyperparathyroidism (HCC) Start: 11-22-2022 Telephone encounter John guillen PA-C Work Phone: Orthopaedics Comment on above: Appointment Start: 11-20-2022 Telephone encounter Miguel Teresa MD Work Phone: [facility] Comment on above: Release Of Medical R ecords Start: 11-15-2022 Telephone encounter Miguel Teresa MD Work Phone: [facility] Comment on above: Patient Update Start: 11-14-2022 Orders Only John Desai PA-C Work Phone: Orthopaedics Comment on above: Pain in both knees, unspecified chronicity (Primary Dx) Start: 11-13-2022 End: 11-13-2022 Patient encounter procedure Shorty Teresa MD Work Phone: [facility] Comment on above: Skin tear of left lo wer leg without complication, initial encounter (Primary Dx); Bilateral lower extremity edema Start: 10-22-2022 Orders Only Leydi Vance MD Work Phone: Endocrine Surgery Comment on above: Hyperparathyroidism (HCC) (Primary Dx) Start: 09-21-2022 End: 09-21-2022 ambulatory Treatment Rm 10 Tan [facility] Work Phone: Hematology/Oncology Comment on above: Other osteoporosis, unspecified pathological fracture presence (Primary Dx) Refill Request Start: 09-21-2022 Telephone encounter Miguel Teresa MD Work Phone: [facility] Comment on above: Results Start: 09-13-2022 Orders Only Hayden Flanagan MD Work Phone: Endocrinology Comment on above: Hyperparathyroidism (HCC) (Primary Dx) Referral Request (Th yroid Surgeon) orders for medicatio n infusion Start: 09-12-2022 End: 09-12-2022 Orders Only Hayden Flanagan MD Work Phone: Endocrinology Comment on above: Osteoporosis without current pathological fracture, unspecified osteoporosis type [M81.0 (ICD-10-CM)] (Primary Dx); Hyperparathyroidism (HCC) Start: 08-20-2022 Telephone encounter Miguel Teresa MD Work Phone: [facility] Comment on above: Patient Question Results; Care Coordi nator - Other; Orders Start: 08-17-2022 End: 08-17-2022 Patient encounter procedure Wagner Roldan PA-C Work Phone: Urology Comment on above: Urinary tract infect ion without hematuria, site unspecified (Primary Dx); Atrophic vaginitis Start: 08-14-2022 Telephone encounter Miguel Teresa MD Work Phone: [facility] Comment on above: Results Patient Question Start: 08-13-2022 End: 08-13-2022 Patient encounter procedure Shorty Teresa MD Work Phone: [facility] Comment on above: Left leg swelling (P rimary Dx); Recurrent UTI (urinary tract infection); Bilateral lower extremity edema; Migraine without aura and without status migrainosus, not intractable; Primary insomnia; Hyperparathyroidism (HCC); Hypercalcemia; Other osteoporosis, unspecified pathological fracture presence; Venous incompetence; Chronic bilateral low back pain without sciatica; OAB (overactive bladder); Vitamin D deficiency; Left spastic hemiparesis (HCC) Start: 07-26-2022 End: 07-26-2022 Patient encounter procedure Donnell Braden MD Work Phone: [facility] Comment on above: Urinary frequency (P rimary Dx) Start: 07-09-2022 End: 07-09-2022 Patient encounter procedure Elly Bruno PA-C Work Phone: [facility] Comment on above: Acute UTI (Primary D x) Start: 07-09-2022 Refill Elly Vargas Work Phone: [facility] Comment on above: Refill Request Start: 06-25-2022 Refill Shorty Teresa MD Work Phone: [facility] Comment on above: Refill Request Start: 05-31-2022 ambulatory Shorty Teresa MD Work Phone: [facility] Comment on above: Viral Syndrome Start: 04-27-2022 Documentation procedure Mammog lauri Coordinator [facility] Start: 04-27-2022 Letter encounter Mammography Coordinator [facility] Department Start: 04-26-2022 End: 04-26-2022 Subsequent hospital visit by physician Screen Mammo [facility] Mammogram Comment on above: Screening mammogram for breast cancer [Z12.31] Start: 04-19-2022 Telephone encounter Miguel Teresa MD Work Phone: [facility] [place] Comment on above: Results Start: 04-18-2022 Refill Shorty Teresa MD Work Phone: [facility] [place] Comment on above: Refill Request Start: 2022 Telephone encounter Miguel Teresa MD Work Phone: Family [facility] Comment on above: Patient Question (Me dication not on med list, please refill) Start: 03-27-2022 Telephone encounter Kassandra conte PCT.[employer] Work Phone: [facility] [place] Comment on above: Refill Request Start: 03-16-2022 Refill Kassandra Sharma PCT.[employer] Work Phone: [facility] [place] Comment on above: Refill Request Start: 02-08-2022 Telephone encounter Miguel Teresa MD Work Phone: [facility] [place] Comment on above: Results Start: 02-07-2022 End: 02-07-2022 Subsequent hospital visit by physician Us [facility] 2 Work Phone: Radiology Comment on above: Elevated alkaline ph osphatase level [R74.8] Start: 02-01-2022 Telephone encounter Miguel Teresa MD Work Phone: [facility] [place] Comment on above: Results; Appointment Start: 01-15-2022 Telephone encounter Miguel Teresa MD Work Phone: [facility] [place] Comment on above: Patient Question Start: 12-27-2021 Telephone encounter Miguel Teresa MD Work Phone: [facility] [place] Comment on above: Orders (compression stockings) Start: 12-25-2021 Refill Shorty Teresa MD Work Phone: [facility] [place] Comment on above: Prescription Refills Start: 12-05-2021 End: 12-05-2021 Patient encounter procedure Shorty Teresa MD Work Phone: [facility] [place] Comment on above: Acute cystitis witho ut hematuria (Primary Dx); Dizziness; Fatigue, unspecified type; Hypokalemia; Opioid use Start: 05-08-2021 End: 05-08-2021 Subsequent hospital visit by physician Xr [facility] [place] Work Phone: Radiology Comment on above: Right hand pain [M79 .641] Start: 04-19-2021 End: 04-19-2021 Subsequent hospital visit by physician Xr [facility] [place] Work Phone: Radiology Comment on above: Dry cough [R05] Start: 10-11-2017 End: 06-26-2018 Patient encounter status Arnol Jonas MD Work Phone: [facility] Procedures Date Procedure Procedure Detail Performing Clinician Start: 04-14-2024 PFIZER-BIONTECH COVI D-19 VACCINE AGE 12+ YR Kassandra Sharma APRN.[employer] Work Phone: Start: 01-09-2024 PFIZER-BIONTECH COVI D-19 VACCINE ( SEASON) AGE 12+ YR Shorty Teresa MD Work Phone: Start: 01-09-2024 Adult depression scr eening assessment Shorty Teresa MD Work Phone: Start: 01-02-2024 Arthrocentesis aspir &/inj major jt/bursa w/o us Arnol Jonas MD Work Phone: Start: 08-28-2023 Lipid 1996 panel - S prince or Plasma Tamara Gonsales MA Start: 07-23-2023 Radiologic exam ches t 2 views Shorty Teresa MD Work Phone: Start: 06-19-2023 PFIZER-BIONTECH COVI D-19 VACCINE ( SEASON) AGE 12+ YR Kassandra Sharma PCT.[employer] Work Phone: Start: 05-29-2023 INFLUENZA VACCINE, P [...] us Arnol Jonas MD Work Phone: Start: 01-03-2023 Radiologic examinati on knee 3 views John Desai PA-C Work Phone: Start: 08-17-2022 Culture bacterial quanttative colony count urine Wagner Roldan PA-C Work Phone: Start: 08-17-2022 Urnls dip stick/tabl et rgnt auto w/o microscopy Wagner SZYMANSKIC Work Phone: Start: 07-26-2022 Culture bacterial quanttative colony count urine Donnell Braden MD Work Phone: Start: 07-26-2022 Urnls dip stick/tabl et rgnt auto w/o microscopy Keesha Riggs PCT.[employer] Work Phone: Start: 07-09-2022 Urnls dip stick/tabl et rgnt auto w/o microscopy Ericka Lowry PCT.[employer] Work Phone: Start: 04-26-2022 Mammography Mammograph y Coordinator Start: 02-07-2022 Us abdominal real ti me w/image limited Shorty Teresa MD Work Phone: Start: 01-31-2022 Lipid 1996 panel - S prince or Plasma Shorty Teresa MD Work Phone: Start: 05-18-2021 Mammography Miguel Teresa MD Work Phone: Start: 05-08-2021 Radex hand minimum 3 views Joan Carrasquillo [employer] Work Phone: Start: 04-19-2021 Radiologic exam ches t 2 views Shorty Teresa MD Work Phone: Start: 03-17-2021 Adult depression scr eening assessment Shorty Teresa MD Work Phone: Start: 02-24-2015 Colonoscopy Miguel Teresa MD Work Phone: Plan of Treatment Date Care Activity Detail Author Start: 08-28-2028 Lipid panel Lipid Screening [facility] Start: 01-31-2027 Lipid 1996 panel - Serum or Plasma Lipid Screening [facility] Start: 01-31-2027 LIPID SCREEN LIPID SCREEN [facility] Start: 10-09-2026 [facility] Start: 08-28-2026 Diabetes Screening Diabetes Screening [facility] Start: 02-02-2026 Screening for osteoporosis Bone Density Screening [facility] Start: 01-31-2026 DIABETES SCREEN DIABETES SCREEN [facility] Start: 01-31-2026 Diabetes Screening Diabetes Screening [facility] Start: 09-21-2025 DIABETES SCREEN DIABETES SCREEN [facility] Start: 09-05-2025 DIABETES SCREEN DIABETES SCREEN [facility] Start: 08-13-2025 DIABETES SCREEN DIABETES SCREEN [facility] Start: 04-12-2025 DIABETES SCREEN DIABETES SCREEN [facility] Start: 02-24-2025 Colonoscopy COLONOSCOPY [facility] Start: 02-24-2025 COLORECTAL CANCER SCREENING COLORECTAL CANCER SCREENING [facility] Start: 02-24-2025 Screening for malignant neoplasm of colon [facility] Start: 01-31-2025 DIABETES SCREEN DIABETES SCREEN [facility] Start: 01-08-2025 Anxiety Screening Anxiety Screening [facility] Start: 01-08-2025 Depression Screening Depression Screening [facility] Start: 01-08-2025 RSV Vaccine (1 - 1-dose 60+ series) RSV Vaccine (1 - 1-dose 60+ series) [facility] Comment on above: Postponed from 2008 (Declined at t his time) Start: 01-08-2025 RSV Vaccine (1 - 1-dose 75+ series) RSV Vaccine (1 - 1-dose 75+ series) [facility] Comment on above: Postponed from 2023 (Declined at t his time) Start: 10-12-2024 End: 10-12-2024 Patient encounter procedure 10/12/2024 12:40 PM EDT Office Visit [facility] [place] [address] [place] [address] Shorty Teresa MD [address] [place] [address] 6 month follow up- 40 min per provider [facility] Comment on above: 6 month follow up- 40 min per provider Start: 09-11-2024 DIABETES SCREEN DIABETES SCREEN [facility] Start: 08-27-2024 LIPID SCREEN LIPID SCREEN [facility] Start: 05-19-2024 End: 05-19-2024 Patient encounter procedure 05/19/2024 2:20 PM EDT Appointment Mammogram [address] [place] [address] Mammogram Start: 05-06-2024 End: 05-06-2024 Patient encounter procedure 05/06/2024 3:20 PM EDT Office Visit Endocrinology [address] [id number] Hayden Flanagan MD [address] [place], [place] [id number] Thyroid follow up Endocrinology Comment on above: Thyroid follow up Start: 04-14-2024 End: 07-14-2024 Comprehensive metabolic 2000 panel - Serum or Plasma COMPREHENSIVE METABOLIC PANEL Lab Routine Mixed hyperlipidemia Expected: 04/14/2024, Expires: 07/14/2024 [facility] Work Phone: Comment on above: Expected: 04/14/2024, Expires: Start: 04-14-2024 End: 04-14-2024 Patient encounter procedure 04/14/2024 1:00 PM EDT Office Visit Family Alley Arellano [address] [place] [address] PodlogarKassandra APRN.[employer] [address] [facility] [place] [place] [address] 3 month follow up- 40 min per provider Family Alley Arellano Comment on above: 3 month follow up- 40 min per provider Start: 03-22-2024 Influenza vaccination [facility] Start: 02-13-2024 SHINGRIX VACCINE (1 of 2) SHINGRIX [facility]ACCINE (1 of 2) [facility] Comment on above: Postponed from 1998 (Declined at t his time) Start: 02-13-2024 Shingrix Vaccine (2 of 2) Shingrix Vaccine (2 of 2) [facility] Comment on above: Postponed from 10/17/2022 (Declined at t his time) Start: 02-13-2024 Shingrix Vaccine (2 of 3) Shingrix Vaccine (2 of 3) [facility] Comment on above: Postponed from 10/17/2022 (Declined at t his time) Start: 02-03-2024 End: 02-03-2024 Patient encounter procedure 02/03/2024 1:05 PM EDT Appointment Radiology [address] [place] [id number] Hyperparathyroidism (HCC) [E21.3]; Osteoporosis without current pathological fracture, unspecified osteoporosis type [M81.0] Radiology Comment on above: Hyperparathyroidism (HCC) [E21.3]; Osteo porosis without current pathological fracture, unspecified osteoporosis type [M81.0] Start: 01-09-2024 End: 01-09-2024 Patient encounter procedure 01/09/2024 1:20 PM EDT Office Visit Family Alley Arellano [address] [place], [place] [phone] Shorty Teresa MD [address] [facility] [place], [place] [id number] medicare wellness exam Family Alley Arellano Comment on above: medicare wellness exam Start: 01-02-2024 End: 01-02-2024 Patient encounter procedure 01/02/2024 3:20 PM EDT Office Visit Orthopaedics [address] [address] Arnol Jonas MD [address] [address] durolane inj right knee Orthopaedics Comment on above: durolane inj right knee Start: 10-18-2023 Covid-19 Vaccine () Covid-19 Vaccine () [facility] Start: 09-12-2023 End: 06-27-2024 BD DXA TRABECULAR BONE SCORE (TBS) BD DXA TRABECULAR BONE SCORE (TBS) Radiology Routine Hyperparathyroidism (HCC) Osteoporosis without current pathological fracture, unspecified osteoporosis type Expected: 09/12/2023 (Approximate), Expires: 06/27/2024 [facility] Work Phone: Comment on above: Expected: 09/12/2023 (Approximate), Expi res: 06/27/2024 Start: 09-12-2023 End: 06-27-2024 DXA-AXIAL SKELETON DXA-AXIAL SKELETON Radiology Routine Hyperparathyroidism (HCC) Osteoporosis without current pathological fracture, unspecified osteoporosis type Expected: 09/12/2023 (Approximate), Expires: 06/27/2024 [facility] Work Phone: Comment on above: Expected: 09/12/2023 (Approximate), Expi res: 06/27/2024 Start: 09-12-2023 End: 06-27-2024 DXA-FOREARM SKELETON DXA-FOREARM SKELETON Radiology Routine Hyperparathyroidism (HCC) Osteoporosis without current pathological fracture, unspecified osteoporosis type Expected: 09/12/2023 (Approximate), Expires: 06/27/2024 [facility] Work Phone: Comment on above: Expected: 09/12/2023 (Approximate), Expi res: 06/27/2024 Start: 09-11-2023 Screening for osteoporosis Bone Density Screening [facility] Start: 08-03-2023 End: 09-02-2023 25-hydroxyvitamin D3 [Mass/volume] in Serum or Plasma VITAMIN D 25 HYDROXY Lab Routine Hyperparathyroidism (HCC) Expected: 08/03/2023, Expires: 09/02/2023 [facility] Work Phone: Comment on above: Expected: 08/03/2023, Expires: Start: 08-03-2023 End: 09-02-2023 Calcium [Mass/volume] in Serum or Plasma CALCIUM TOTAL BLD Lab Routine Hyperparathyroidism (HCC) Expected: 08/03/2023, Expires: 09/02/2023 [facility] Work Phone: Comment on above: Expected: 08/03/2023, Expires: Start: 08-03-2023 End: 11-02-2023 Comprehensive metabolic 2000 panel - Serum or Plasma COMP METABOLIC PANEL Lab Routine Mixed hyperlipidemia Expected: 08/03/2023, Expires: 11/02/2023 [facility] Work Phone: Comment on above: Expected: 08/03/2023, Expires: Start: 08-03-2023 End: 11-02-2023 Creatinine and Glomerular filtration rate.predicted panel - Serum, Plasma or Blood GFR ESTIMATED Lab Routine Hyperparathyroidism (HCC) Osteoporosis without current pathological fracture, unspecified osteoporosis type Expected: 08/03/2023 (Approximate), Expires: 11/02/2023 [facility] Work Phone: Comment on above: Expected: 08/03/2023 (Approximate), Expi res: 11/02/2023 Start: 08-03-2023 End: 11-02-2023 CREATININE BLD CREATININE BLD Lab Routine Hyperparathyroidism (HCC) Osteoporosis without current pathological fracture, unspecified osteoporosis type Expected: 08/03/2023 (Approximate), Expires: 11/02/2023 [facility] Work Phone: Comment on above: Expected: 08/03/2023 (Approximate), Expi res: 11/02/2023 Start: 08-03-2023 End: 11-02-2023 Lipid 1996 panel - Serum or Plasma LIPID PANEL BASIC Lab Routine Mixed hyperlipidemia Expected: 08/03/2023, Expires: 11/02/2023 [facility] Work Phone: Comment on above: Expected: 08/03/2023, Expires: 4 Start: 08-03-2023 End: 09-02-2023 Parathyrin.intact [Mass/volume] in Serum or Plasma PTH INTACT BLD Lab Routine Hyperparathyroidism (HCC) Expected: 08/03/2023, Expires: 09/02/2023 [facility] Work Phone: Comment on above: Expected: 08/03/2023, Expires: 4 Start: 07-22-2023 Advance Directive Discussion Advance Directive Discussion [facility] Start: 07-22-2023 Behavioral Health Screening Behavioral Health Screening [facility] Start: 04-26-2023 Mammography [facility] Start: 04-09-2023 Covid-19 Vaccine () Covid-19 Vaccine () [facility] Start: 03-22-2023 Influenza vaccination [facility] Start: 02-18-2023 End: 04-20-2023 Calcium [Mass/volume] in Serum or Plasma CALCIUM TOTAL BLD Lab Routine Hyperparathyroidism (HCC) Expected: 02/18/2023, Expires: 04/20/2023 [facility] Work Phone: Comment on above: Expected: 02/18/2023, Expires: 3 Start: 02-18-2023 End: 04-20-2023 Parathyrin.intact [Mass/volume] in Serum or Plasma PTH INTACT BLD Lab Routine Hyperparathyroidism (HCC) Expected: 02/18/2023, Expires: 04/20/2023 [facility] Work Phone: Comment on above: Expected: 02/18/2023, Expires: 3 Start: 02-08-2023 US THYROID/PARATHYROID (POC) ENDO USE ONLY US THYROID/PARATHYROID (POC) ENDO USE ONLY Imaging Diagnostic Routine Hyperparathyroidism (HCC) Expected: 02/08/2023 [facility] Work Phone: Comment on above: Expected: 02/08/2023 Start: 12-03-2022 End: 12-04-2023 Basic metabolic 2000 panel - Serum or Plasma BASIC METABOLIC PNL Lab Routine Primary hyperparathyroidism (HCC) Expected: 12/03/2022, Expires: 12/04/2023 [facility] Work Phone: Comment on above: Expected: 12/03/2022, Expires: 4 Start: 12-03-2022 End: 12-04-2023 CBC W Auto Differential panel - Blood CBC + DIFF Lab Routine Primary hyperparathyroidism (HCC) Expected: 12/03/2022, Expires: 12/04/2023 [facility] Work Phone: Comment on above: Expected: 12/03/2022, Expires: 4 Start: 12-03-2022 End: 12-04-2023 Parathyrin.intact [Mass/volume] in Serum or Plasma PTH INTACT BLD Lab Routine Primary hyperparathyroidism (HCC) Expected: 12/03/2022, Expires: 12/04/2023 [facility] Work Phone: Comment on above: Expected: 12/03/2022, Expires: 4 Start: 10-17-2022 Shingrix Vaccine (2 of 3) Shingrix Vaccine (2 of 3) [facility] Start: 09-01-2022 COVID-19 VACCINE (6 - Pfizer series) COVID-19 VACCINE (6 - Pfizer series) [facility] Start: 08-13-2022 End: 10-13-2022 Bacteria identified in Urine by Culture [facility] Work Phone: Comment on above: Expected: 08/13/2022, Expires: 3 Start: 07-22-2022 ADVANCE DIRECTIVE DISCUSSION ADVANCE DIRECTIVE DISCUSSION [facility] Start: 07-22-2022 DEPRESSION ASSESSMENT DEPRESSION ASSESSMENT [facility] Start: 05-18-2022 Mammography MAMMOGRAM [facility] Start: 05-03-2022 End: 07-03-2022 Comprehensive metabolic 2000 panel - Serum or Plasma COMP METABOLIC PANEL Lab Routine Hypokalemia Expected: 05/03/2022, Expires: 07/03/2022 [facility] Work Phone: Comment on above: Expected: 05/03/2022, Expires: 2 Start: 03-22-2022 Influenza vaccination INFLUENZA (#1) [facility] Start: 03-17-2022 Adult depression screening assessment DEPRESSION SCREENING [facility] Start: 02-15-2022 COVID-19 VACCINE (5 - Booster for Pfizer series) COVID-19 VACCINE (5 - Booster for Pfizer series) [facility] Start: 12-05-2021 End: 02-04-2022 Comprehensive metabolic 2000 panel - Serum or Plasma COMP METABOLIC PANEL Lab Routine Hypokalemia Expected: 12/05/2021, Expires: 02/04/2022 [facility] Work Phone: Comment on above: Expected: 12/05/2021, Expires: 2 Start: 10-22-2021 COVID-19 VACCINE (4 - Booster for Pfizer series) COVID-19 VACCINE (4 - Booster for Pfizer series) [facility] Start: 07-22-2021 ADVANCE DIRECTIVE DISCUSSION ADVANCE DIRECTIVE DISCUSSION [facility] Start: 07-22-2021 DEPRESSION ASSESSMENT DEPRESSION ASSESSMENT [facility] Start: 11-17-2013 FECAL OCCULT BLOOD FECAL OCCULT BLOOD [facility] Start: 11-17-2013 Screening for malignant neoplasm of colon Fecal Occult Blood [facility] Start: 2008 RSV Vaccine (1 - 1-dose 60+ series) RSV Vaccine (1 - 1-dose 60+ series) [facility] Start: 1998 SHINGRIX VACCINE (1 of 2) SHINGRIX VACCINE (1 of 2) [facility] Start: 1993 COLOGUARD (FIT-DNA) COLOGUARD (FIT-DNA) [facility] Start: [address] COLONOGRAPHY [facility] Start: 1993 Screening for malignant neoplasm of colon [facility] Start: 1993 SIGMOIDOSCOPY SIGMOIDOSCOPY [facility] Bacteria identified in Urine by Culture URINE CULTURE Microbiology Routine Acute UTI Ordered: 07/09/2022 [facility] Work Phone: Comment on above: Ordered: 07/09/2022 Bacteria identified in Urine by Culture URINE CULTURE Microbiology Routine Urinary frequency 07/26/2022 7:24 PM EST [facility] Work Phone: DXA Skeletal system. axial Views for bone density DXA-AXIAL SKELETON Radiology Routine Hyperparathyroidism (HCC) Osteoporosis without current pathological fracture, unspecified osteoporosis type 02/03/2024 1:59 PM EDT [facility] Work Phone: DXA-FOREARM SKELETON DXA-FOREARM SKELETON Radiology Routine Hyperparathyroidism (HCC) Osteoporosis without current pathological fracture, unspecified osteoporosis type 02/03/2024 1:59 PM EDT [facility] End: 12-04-2023 ECG COMPLETE ECG COMPLETE ECG Routine Primary hyperparathyroidism (HCC) 1 Occurrences starting 12/03/2022 until 12/04/2023 [facility] Work Phone: Comment on above: 1 Occurrences starting 12/03/2022 until 12/04/2023 End: 05-11-2024 CRISTINA SCREENING CRISTINA SCREENING Radiology Routine Screening mammogram for breast cancer 1 Occurrences starting 04/12/2023 until 05/11/2024 [facility] Work Phone: Comment on above: 1 Occurrences starting 04/12/2023 until 05/11/2024 End: 05-30-2025 MG Breast Screening CRISTINA SCREENING Radiology Routine Screening mammogram for breast cancer 1 Occurrences starting 04/30/2024 until 05/30/2025 [facility] Work Phone: Comment on above: 1 Occurrences starting 04/30/2024 until 05/30/2025 End: 01-02-2024 Parathyroid imaging w/tomographic spect & ct NM PARATHYROID W SPECT/CT Radiology Routine Primary hyperparathyroidism (HCC) Hypercalcemia 1 Occurrences starting 12/03/2022 until 01/02/2024 [facility] Work Phone: Comment on above: 1 Occurrences starting 12/03/2022 until 01/02/2024 POST VOID RESIDUAL POST VOID RES IDUAL Procedures Routine Urinary tract infection without hematuria, site unspecified Ordered: 08/17/2022 [facility] Work Phone: Comment on above: Ordered: 08/17/2022 REFER FOR ADMIT INTERVIEW REFER FOR ADMIT INTERVIEW Procedures Routine Primary hyperparathyroidism (HCC) Ordered: 12/03/2022 [facility] Work Phone: Comment on above: Ordered: 12/03/2022 End: 03-10-2023 Screening mammography bi 2-view breast inc cad CRISTINA SCREENING Radiology Routine Screening mammogram for breast cancer 1 Occurrences starting 02/08/2022 until 03/10/2023 [facility] Work Phone: Comment on above: 1 Occurrences starting 02/08/2022 until 03/10/2023 End: 04-26-2022 Screening mammography bi 2-view breast inc cad [facility] Work Phone: Comment on above: 1 Occurrences starting 04/26/2022 until 04/26/2022 End: 08-13-2023 US LEG VEIN DVT UNL VAS LAB US LEG VEIN DVT UNL VAS LAB Vascular Lab STAT Left leg swelling 1 Occurrences starting 08/13/2022 until 08/13/2023 [facility] Work Phone: Comment on above: 1 Occurrences starting 08/13/2022 until 08/13/2023 US THYROID/PARATHYRO ID (POC) ENDO USE ONLY US THYROID/PARATHYROID (POC) ENDO USE ONLY Imaging Diagnostic Routine Hyperparathyroidism (HCC) Ordered: 10/22/2022 [facility] Work Phone: Comment on above: Ordered: 10/22/2022 US THYROID/PARATHYRO ID (POC) ENDO USE ONLY US THYROID/PARATHYROID (POC) ENDO USE ONLY Imaging Diagnostic Routine Primary hyperparathyroidism (HCC) Ordered: 11/26/2022 [facility] Work Phone: Comment on above: Ordered: 11/26/2022 End: 12-14-2023 XR KNEE POST OP 3V AP/LAT/MERCHANT BILATERAL XR KNEE POST OP 3V AP/LAT/MERCHANT BILATERAL Radiology Routine Pain in both knees, unspecified chronicity 1 Occurrences starting 11/14/2022 until 12/14/2023 [facility] Work Phone: Comment on above: 1 Occurrences starting 11/14/2022 until 12/14/2023 [facility] MM OR [facility] Immunizations Immunization Date Immunization Notes Care Provider Feliciano sanches 04-14-2024 COVID-19 vaccine, ag e 12+ yr (PFIZER-BIONTECH) Kassandra Podlogar PCT.[employer] Work Phone: [facility] 04-14-2024 influenza, high dose seasonal, preservative-free Kassandra Podlogar PCT.[employer] Work Phone: [facility] 01-09-2024 COVID-19 vaccine, ag e 12+ yr, season (PFIZER-BIONTECH) Shorty Teresa MD Work Phone: [facility] 06-19-2023 COVID-19 vaccine, ag e 12+ yr, season (PFIZER-BIONTECH) Kassandra Podlogar PCT.[employer] Work Phone: [facility] 05-29-2023 influenza (HD-IIV4) vaccine, age 65+ yr, high dose, quadrivalent, PF (FLUZONE HIGH-DOSE) Hayden Flanagan MD Work Phone: [facility] 05-29-2023 influenza virus vaccine, unspecified formulation Bone Wstr Work Phone: [facility] 04-21-2023 COVID-19 original vaccine, age 12+ yr, monovalent (PFIZER-BIONTECH - PURPLE TOP) Shorty Teresa MD Work Phone: [facility] 03-22-2023 influenza, seasonal, injectable Shorty Teresa MD Work Phone: [facility] 02-12-2023 COVID-19 vaccine, ag e 12+ yr, bivalent (PFIZER-BIONTECH) Leydi Vance MD Work Phone: [facility] 08-22-2022 zoster vaccine, live Balaji Teresa MD Work Phone: [facility] 05-10-2022 influenza (HD-IIV4) vaccine, age 65+ yr, high dose, quadrivalent, PF (FLUZONE HIGH-DOSE) Shorty Teresa MD Work Phone: [facility] 05-10-2022 influenza virus vaccine, unspecified formulation Shorty Teresa MD Work Phone: [facility] 04-24-2022 respiratory syncytia l virus (RSV), unspecified formulation Shorty Teresa MD Work Phone: [facility] 03-22-2022 pneumococcal conjuga te vaccine, 13 valent Shorty Teresa MD Work Phone: [facility] 04-19-2021 influenza, high-dose , quadrivalent vaccine (FLUZONE HIGH DOSE QUADRIVALENT) Shorty Teresa MD Work Phone: [facility] 05-12-2020 influenza, high-dose , quadrivalent vaccine (FLUZONE HIGH DOSE QUADRIVALENT) Shorty Teresa MD Work Phone: [facility] 07-02-2019 influenza, high dose seasonal, preservative-free Shorty Teresa MD Work Phone: [facility] 04-23-2018 influenza, seasonal, injectable, preservative free Shorty Teresa MD Work Phone: [facility] Work Phone: 03-26-2018 influenza, high dose seasonal, preservative-free Shorty Teresa MD Work Phone: [facility] 03-30-2017 influenza, high dose seasonal, preservative-free Shorty Teresa MD Work Phone: [facility] 10-09-2016 tetanus toxoid, redu donna diphtheria toxoid, and acellular pertussis vaccine, adsorbed Shorty Teresa MD Work Phone: [facility] 05-08-2016 pneumococcal polysaccharide vaccine, 23 valent Shorty Teresa MD Work Phone: [facility] 04-21-2016 influenza (HD-IIV4) vaccine, age 65+ yr, high dose, quadrivalent, PF (FLUZONE HIGH-DOSE) Shorty Teresa MD Work Phone: [facility] 04-13-2016 influenza, high dose seasonal, preservative-free Shorty Teresa MD Work Phone: [facility] 04-22-2015 influenza, high dose seasonal, preservative-free Shorty Teresa MD Work Phone: [facility] 09-07-2014 pneumococcal conjuga te vaccine, 13 valent Shorty Teresa MD Work Phone: [facility] 04-22-2010 pneumococcal polysaccharide vaccine, 23 valent Shorty Teresa MD Work Phone: [facility] 08-05-2006 TD(adult) unspecifie d formulation Shorty Teresa MD Work Phone: [facility] 08-05-2006 tetanus and diphther ia toxoids, adsorbed, preservative free, for adult use (2 Lf of tetanus toxoid and 2 Lf of diphtheria toxoid) Shorty Teresa MD Work Phone: [facility] 07-18-1998 diphtheria and tetan us toxoids, adsorbed for pediatric use Shorty Teresa MD Work Phone: [facility] Work Phone: Payers Date Payer Category Payer Unknown [id number] 2019 Medicaid UHC MEDICAID MYC ARE [facility] MEDICAID [id number] 2019-Present [phone] [address] [place] [address] Medicaid [id number] 2019 Medicaid UHC MEDICAID MYC ARE [facility] MEDICAID [id number] 2019-Present [phone] [address] [place] [address] Medicaid [id number] 2019 Medicaid [id number] 2017 Medicare [facility] MEDICARE [facility] DUAL COMPLETE HMO SNP [id number] 2017-Present [phone] [address] [place] [address] Medicare [id number] 2017 Medicare [id number] Social History Date Type Detail Facility Start: 02-07-2012 Tobacco smoking stat [facility] Never smoked tobacco [facility] Start: 12-05-2021 End: 05-06-2024 Alcohol intake Current non-drinker of alcohol (finding) [facility] Start: 1950 Sex Assigned At Not on file [facility] Start: 03-20-2021 End: 04-26-2022 Exposure to SARS-CoV-2 (event) Not sure [facility] Work Phone: Start: 02-07-2012 Tobacco use and exposure Smokeless tobacco non-user [facility] Start: 11-26-2022 End: 01-31-2023 History of Social function [facility] Work Phone: Start: 11-26-2022 End: 01-31-2023 Tobacco use panel [facility] Work Phone: Adult Depression Screening Assessment 0 [facility] Work Phone: How often to you hav e a drink containing alcohol? Never [facility] Medical Equipment Procedure Code Equipment Code Equipment Origin al Text Equipment Identifier Dates Reymundo Bn Smpx P Ra dpq Fd Strl - [id number] Start: 03-17-2014 Band-C Realize G ast W/Disect - [id number] Start: 04-21-2010 Comment on above: Description: gastric band C Ins Tib 4 9mm Kn X3 Uhmwpe Ps - [id number] Start: 03-17-2014 Comp Fem 5 Lt Kn Reymundo Ps Trthln - [id number] Start: 03-17-2014 Comp Pat 10mm 35 mm Asym Trthln - [id number] Start: 03-17-2014 Baseplt Tib Trth ln 4 Kn Reymundo - [id number] Start: 03-17-2014 Sling Charlie Polypropylene 60x1.1cm Suburethral Transobturator Tape - [id number] Start: 11-15-2017 Clinical Notes 10-11-2017 to 05-06-2024 Patient InstructionsHayden Flanagan MD - 05/06/2024 3:31 PM EDTTelephone Encounter - Juvenal Toro LPN - 04/30/2024 1:49 PM EDTPodlogKassandra guzman APRN.[employer] - 04/14/2024 1:02 PM EDT Note Date & Type Note Facility 05-06-2024 Instructions Hayden Flanagan MD - 05/06/2024 3:40 PM EDT - Continue the current calcium and vitamin D intake - Call to schedule the Reclast infusion this year - I will see you in one year with repeat blood tests documented in this encounter [facility] 05-06-2024 Note HNO ID: [id number] Author: HAYDEN FLANAGAN MD Service: ? Author Type: Physician Type: Progress Notes Filed: 05/06/2024 15:51 Note Text: ENDOCRINOLOGY CLINIC NOTE Reason for visit Janay Frederick is a pleasant 74 year old female with history of CVA, [...] and no history of kidney stones. She underwent left lower parathyroidectomy by Dr. Vance in 01/2023. Had intraoperative PTH declined from 112 to 40. Pathology showed hypercellular left lower gland. Interval events: She takes total calcium 1200 mg per day, she takes vitamin D but unclear strength. Doing well overall with no falls or fractures Osteoporosis: DXA scan 02/03/2024: Lumbar spine (L1, L2, L3, L4): 1.129 g/cm2, T-score 0.7 No statistically significant change Right Femoral Neck: 0.589 g/cm2, T-score -2.3 No statistically significant change Right Total Hip: 0.781 g/cm2, T-score -1.3 No statistically significant change Left Femoral Neck: 0.595 g/cm2, T-score -2.3 No statistically significant change Left Total Hip: 0.803 g/cm2, T-score -1.1 No statistically significant change Left Forearm, Distal 1/3 of Radius: 0.674 g/cm2, T-score -0.3 DXA 08/2021 compared to 2019: L spine T score 0.8 (stable) L TH T score -1.3 (stable) L FN T score -2.6 R TH T score -1.1 R FN T score -2.4 (decline) Fracture history: Lumbar compression fracture 15 years [...] Medical History PAST MEDICAL HISTORY Diagnosis Date - BCC (basal cell carcinoma of skin) - Chronic lower back pain Dr. Nur - Gastric band slippage Dr. Garcia, removed 11/06 - Gastric ulcer, unspecified as acute or chronic, without mention of hemorrhage or perforation, with obstruction - Generalized osteoarthrosis, unspecified site back - GERD (gastroesophageal reflux disease) - Hyperparathyroidism (HCC) s/p parathyroidectomy 02/08/2023 - Insomnia - Knee pain, chronic - Lumbago - Migraine without aura on diltiazem - Obesity, unspecified stated BMI 40.5 HT: 61.5 WT: 220 - Osteopenia of multiple sites - Overactive bladder - Personal history of unspecified urinary disorder years ago since last bladder infection - SCC (squamous cell carcinoma) - Stroke (HCC) 12/06/1981 cva left side residual, young at age 31, likely 2/2 OCPs - Unspecified hemorrhoids without mention of complication Hemorrhoids - Urinary urgency - Uterine prolapse s/p hysterectomy - Venous incompetence bilaterally, f/u Dr. Maravilla - Vitamin D deficiency Past Surgical History PAST SURGICAL HISTORY Procedure Laterality Date - ARTHRP KNE CONDYLEANDPLATU MEDIALANDLAT COMPARTMENTS Left 03/17/2014 Knee replacement, total left - COLONOSCOPY FLX DX W/COLLJ SPEC WHEN PFRMD 02/08/2005 Colonoscopy - COLONOSCOPY FLX DX W/COLLJ SPEC WHEN PFRMD 02/24/15 Colonoscopy - EGD DILATION GASTRIC/DUODENAL STRICTURE 12/20/09 - ESOPHAGOGASTRODUODENOSCOPY TRANSORAL DIAGNOSTIC 11/27/13 EGD - HYSTERECTOMY 10/2107 pelvic organ prolapse - LAPAROSCOPY SURG CHOLECYSTECTOMY 2004 Cholecystectomy, lap - LAPS GASTRIC (more content not included)... [facility] 05-06-2024 History of Present illness Narrative ENDOCRINOLOGY CLINIC NOTE Reason for visit Janay Frederick is a pleasant 74 year old female with history of CVA, [...] and no history of kidney stones. She underwent left lower parathyroidectomy by Dr. Vance in 01/2023. Had intraoperative PTH declined from 112 to 40. Pathology showed hypercellular left lower gland. Interval events: She takes total calcium 1200 mg per day, she takes vitamin D but unclear strength. Doing well overall with no falls or fractures Osteoporosis: DXA scan 02/03/2024: Lumbar spine (L1, L2, L3, L4): 1.129 g/cm2, T-score 0.7 No statistically significant change Right Femoral Neck: 0.589 g/cm2, T-score -2.3 No statistically significant change Right Total Hip: 0.781 g/cm2, T-score -1.3 No statistically significant change Left Femoral Neck: 0.595 g/cm2, T-score -2.3 No statistically significant change Left Total Hip: 0.803 g/cm2, T-score -1.1 No statistically significant change Left Forearm, Distal 1/3 of Radius: 0.674 g/cm2, T-score -0.3 DXA 08/2021 compared to 2019: L spine T score 0.8 (stable) L TH T score -1.3 (stable) L FN T score -2.6 R TH T score -1.1 R FN T score -2.4 (decline) Fracture history: Lumbar compression fracture 15 years ago when she tripped and fell from a standing height. Thoracic compression fracture on DXA 2013 R wrist fracture 4-5 years ago when she fell from a standing height Treatment history (including any side effects/contraindications): Brettt x2 in 01/2021 and 09/2022 Family history [...] bladder infection SCC (squamous cell carcinoma) Stroke ([facility]) 12/06/1981 cva left side residual, young [...] DEVICE 04/21/2010 Performed by THI ALCOCER at [facility] LAPS RPR PARAESPHGL HRNA INCL FUNDPLSTY W/O MESH 04/21/2010 Performed by THI ALCOCER at [facility] MAL LESION FACE,EAR,EYEL 1.1-2CM 01/28/06 Left cheek and right forearm lesions PAST SURGICAL HISTORY OF July 06, 2009 Hysteroscopy D&C PAST SURGICAL HISTORY OF 10/2017 vaginal vault suspension PAST SURGICAL HISTORY OF 10/2017 Lap band removed UNLISTED LAPAROSCOPIC PROCEDURE LIVER 04/21/2010 Performed by THI ALCOCER at [facility] Medications Current Outpatient Medications Medication Sig zoledronic acid (RECLAST) 5 mg/100 mL PREMIX piggyback Inject 100 mL intravenously one time only for 1 dose. COMPRESSION HOSIERY KNEE LENGTH, AD, 30-40 MMHG once daily. gabapentin (NEURONTIN) 300 mg capsule Take 1 capsule by mouth once daily for 90 days. amitriptyline (ELAVIL) 75 mg tablet Take 1 tablet by mouth daily at bedtime. tolterodine ER (DETROL LA) 4 mg 24 hr capsule Take 1 capsule by mouth once daily. omeprazole (PRILOSEC) 40 mg capsule Take 1 capsule by mouth once daily. potassium chloride 20 mEq/15 mL solution Take 30 mL by mouth once daily. atorvastatin (LIPITOR) 10 mg tablet Take 1 tablet by mouth once daily. Discontinue simvastatin furosemide (LASIX) 40 mg tablet Take 1 tablet by mouth once daily. dilTIAZem CD (CARTIA XT) 300 mg 24 hr capsule Take 1 capsule by mouth once daily. HYDROcodone-acetaminophen (NORCO) 5-325 mg per tablet Take 3 tablets by mouth as needed. cholecalciferol (VITAMIN D3) 50 mcg (2,000 unit) tablet Take 2,000 Units by mouth once daily. multivitamin tablet Take 1 tablet by mouth once daily. uhrhkcj-yfjkhepfk-aqkjxcc D3 500 mg-5 mcg (200 unit) per tablet Take 1 tablet by mouth three times daily. No current facility-administered medications for this [...] Never Smokeless tobacco: Never Vaping Use Vaping status: Never Used Substance Use Topics Alcohol use: No Drug use: No Review of Systems: 10 point review of systems was negative other than what is mentioned in the H&P Physical Exam BP 137/80 Pulse 91 Ht 152.4 cm (5') Wt 91.3 kg (201 lb 4.5 oz) SpO2 96% BMI 39.31 kg/m Body mass index is 39.31 kg/m . Last 3 Encounter Ht Readings: [...] and Recommendations: Janay Frederick is a pleasant 74 year old female seen in consultation for [...] current calcium and vitamin D intake. She will need repeat labs next year Osteoporosis: Ms. Frederick sustained vertebral fracture following falls from a standing height and she therefore meets the definition of osteoporosis. She received Reclast 2 time in 01/2022 and 09/2022. DXA scan from 2023 shows stability of the BMD She has had fragility fractures. Risk factors for low bone density include age, ethnicity, post-menopausal state, decreased mobility, hyperparathyroidism and possibly inadequate calcium intake. She received Reclast infusion x 2 last 1 was in 09/2022. Her FRAX score is still elevated although this is not validated in patients who are on treatment. We will give her another Reclast infusion this year. Will repeat DXA scan in 2025 RTC in 1 year with repeat blood test at that time Some of the above has been copied from prior documentation on 06/08/2023 but rose elements reviewed, confirmed, and/or updated by me (Hayden Flanagan MD) on 05/06/2024 Medical Decision Making: Problems: Moderate: 2+ stable chronic illnesses Data: Unique test result(s) reviewed: 3+ Risk: Moderate: Moderate risk from testing/treatment Medical Decision Making Level: 4 - Moderate Hayden Flanagan MD documented in this encounter [facility] 04-30-2024 Telephone encounter Note Spoke with pt and information listed below given. Pt verbalizes understanding. Juvenal Toro LPN [facility] 04-30-2024 Miscellaneous Notes Spoke with pt and information listed below given. Pt verbalizes understanding. Juvenal Toro LPN Order placed Pt calling to request orders for a mammogram. Please advise pt when orders are in and help get apt booked after 05-16-24. Juvenal Toro LPN documented in this encounter [facility] 04-30-2024 Telephone encounter Note Order placed [facility] 04-30-2024 Telephone encounter Note Pt calling to request orders for a mammogram. Please advise pt when orders are in and help get apt booked after 05-16-24. Juvenal Toro LPN [facility] 04-14-2024 Note HNO ID: [id number] Author: KASSANDRA SHARMA APRN.LENA Service: ? Author Type: Nurse Practitioner Type: Progress Notes Filed: 04/14/2024 14:01 Note Text: 04/14/2024 Patient presents with: F/U 3 Month SUBJECTIVE: This is a 74 year old that is here today for Above Complaints. Since last office visit hs been in good health without ER visits or hospitalizations. No falls since last office visit Hyperparathyroidism: Follows with Dr. Flanagan with last office visit on 06/08/2023. No medication changes at this time. Next follow-up on 05/06/2024 OA bladder: taking Detrol as prescribed without [...] Taking gabapentin as prescribed without side effects. Has follow-up appointment today HYPERLIPIDEMIA: Patient is taking medications: Yes. Patient is watching diet: Yes. Patient denies myalgias: Yes. Patient denies gi upset: Yes Patient wondering when her next Reclast infusion should be. PAST MEDICAL HISTORY Diagnosis Date BCC (basal cell carcinoma of skin) Chronic lower back pain Dr. Nur Gastric band slippage Dr. Garcia, removed 11/06 Gastric ulcer, unspecified as acute or chronic, without mention of hemorrhage or perforation, with obstruction Generalized osteoarthrosis, unspecified site back GERD (gastroesophageal reflux disease) Hyperparathyroidism ([facility]) s/p parathyroidectomy 02/08/2023 Insomnia Knee pain, chronic Lumbago Migraine without aura on diltiazem Obesity, unspecified stated BMI 40.5 HT: 61.5 WT: 220 Osteopenia of multiple sites Overactive bladder Personal history of unspecified urinary disorder years ago since last bladder infection SCC (squamous cell carcinoma) Stroke ([facility]) 12/06/1981 cva left side residual, young at age 31, likely 2/2 OCPs Unspecified hemorrhoids without mention of complication Hemorrhoids Urinary urgency Uterine prolapse s/p hysterectomy Venous incompetence bilaterally, f/u Dr. Maravilla Vitamin D deficiency ALLERGIES Flagyl [Metronidazole] and Hctz [Thiazides] MEDICATIONS Current Outpatient Medications Medication Sig COMPRESSION HOSIERY KNEE LENGTH, AD, 30-40 MMHG once daily. gabapentin (NEURONTIN) 300 mg capsule Take 1 capsule by mouth once daily for 90 days. amitriptyline (ELAVIL) 75 mg tablet Take 1 tablet by mouth daily at bedtime. tolterodine ER (DETROL LA) 4 mg 24 hr capsule Take 1 capsule by mouth once daily. omeprazole (PRILOSEC) 40 mg capsule Take 1 capsule by mouth once daily. potassium chloride 20 mEq/15 mL solution Take 30 mL by mouth once daily. atorvastatin (LIPITOR) 10 mg tablet Take 1 tablet by mouth once daily. Discontinue simvastatin furosemide (LASIX) 40 mg tablet Take 1 tablet by mouth once daily. dilTIAZem CD (CARTIA XT) 300 mg 24 hr capsule Take 1 capsule by mouth once daily. fmbmoop-swywwsdeb-zchsffe D3 500 mg-5 mcg (200 unit) per tablet Take 1 tablet by mouth three times daily. zoledronic acid (RECLAST) 5 mg/100 mL pgbk PREMIX piggyback Inject 100 mL intravenously one time only for 1 dose. HYDROcodone-acetaminophen (NORCO) 5-325 mg per tablet Take 3 tablets by mouth as needed. cholecalciferol (VITAMIN D3) 50 mcg (2,000 unit) tablet Take 2,000 Units by mouth once daily. multivitamin tablet Take 1 tablet by mouth once daily. No current facility-administered medications for this visit. Medications and allergies reviewed by this provider. SOCIAL HISTORY Social History Tobacco Use Smoking status: Never Smokeless tobacco: Never Vaping Use Vaping status: Never Used Substance Use Topics Alcohol use: No Drug use: No REVIEW OF SYSTEMS All other reviewed and negative other than HPI. OBJECTIVE: BP 130/82 Pulse 97 Resp 18 Wt 90 kg (198 lb 6.6 oz) SpO2 94% BMI 38.75 kg/m? . Vital signs reviewed by this provider. APPEARANCE Well appearing, alert, in no acute distress, well-hydrated, well nourished. EYES PERRLA, conjunctiva and sclera normal. HEART RRR with normal S1 and S2, no murmurs, no gallops, no JVD appreciated LUNG clear to auscultation. No wheezes, rhonchi or rales EXTREMITIES Compression hose intact SKIN Skin color, texture, turgor normal, no suspicious rashes or lesions to exposed skin Latest Ref Rng 08/28/2023 Protein, Total 6.3 - 8.0 g/dL 6.2 (L) Albumin 3.9 - 4.9 g/dL 4.1 Calcium 8.5 - 10.2 mg/dL 9.2 Bilirubin, Total 0.2 - 1.3 mg/dL 0.3 Alkaline Phosphatase 34 - 123 U/L 100 AST 13 - 35 U/L 18 ALT 7 - 38 U/L 15 Glucose 74 - 99 mg/dL 87 BUN 7 - 21 mg/dL 11 Creatinine 0.58 - 0.96 mg/dL 0.59 Sodium 136 - 144 mmol/L 144 Potassium 3.7 - 5.1 (more content not included)... [facility] 04-14-2024 History of Present illness Narrative 04/14/2024 Patient presents with: F/U 3 Month SUBJECTIVE: This is a 74 year old that is here today for Above Complaints. Since last office visit hs been in good health without ER visits or hospitalizations. No falls since last office visit Hyperparathyroidism: Follows with Dr. Flanagan with last office visit on 06/08/2023. No medication changes at this time. Next follow-up on 05/06/2024 OA bladder: taking Detrol as prescribed without [...] Taking gabapentin as prescribed without side effects. Has follow-up appointment today HYPERLIPIDEMIA: Patient is taking medications: Yes. Patient is watching diet: Yes. Patient denies myalgias: Yes. Patient denies gi upset: Yes Patient wondering when her next Reclast infusion should be. PAST MEDICAL HISTORY Diagnosis Date BCC (basal [...] [Thiazides] MEDICATIONS Current Outpatient Medications Medication Sig COMPRESSION HOSIERY KNEE LENGTH, AD, 30-40 MMHG once daily. gabapentin (NEURONTIN) 300 mg capsule Take 1 capsule by mouth once daily for 90 days. amitriptyline (ELAVIL) 75 mg tablet Take 1 tablet by mouth daily at bedtime. tolterodine ER (DETROL LA) 4 mg 24 hr capsule Take 1 capsule by mouth once daily. omeprazole (PRILOSEC) 40 mg capsule Take 1 capsule by mouth once daily. potassium chloride 20 mEq/15 mL solution Take 30 mL by mouth once daily. atorvastatin (LIPITOR) 10 mg tablet Take 1 tablet by mouth once daily. Discontinue simvastatin furosemide (LASIX) 40 mg tablet Take 1 tablet by mouth once daily. dilTIAZem CD (CARTIA XT) 300 mg 24 hr capsule Take 1 capsule by mouth once daily. ojwnafx-qvlmymwjz-atrudqy D3 500 mg-5 mcg (200 unit) per tablet Take 1 tablet by mouth three times daily. zoledronic acid (RECLAST) 5 mg/100 mL pgbk PREMIX piggyback Inject 100 mL intravenously one time only for 1 dose. HYDROcodone-acetaminophen (NORCO) 5-325 mg per tablet Take 3 tablets by mouth as needed. cholecalciferol (VITAMIN D3) 50 mcg (2,000 unit) tablet Take 2,000 Units by mouth once daily. multivitamin tablet Take 1 tablet by mouth once daily. No current facility-administered medications for this visit. Medications and allergies reviewed by this provider. SOCIAL HISTORY Social History Tobacco Use Smoking status: Never Smokeless tobacco: Never Vaping Use Vaping status: Never Used Substance Use Topics Alcohol use: No Drug use: No REVIEW OF SYSTEMS All other reviewed and negative other than HPI. OBJECTIVE: BP 130/82 Pulse 97 Resp 18 Wt 90 kg (198 lb 6.6 oz) SpO2 94% BMI 38.75 kg/m . Vital signs reviewed by this provider. APPEARANCE Well appearing, alert, in no acute distress, well-hydrated, well nourished. EYES PERRLA, conjunctiva and sclera normal. HEART RRR with normal S1 and S2, no murmurs, no gallops, no JVD appreciated LUNG clear to auscultation. No wheezes, rhonchi or rales EXTREMITIES Compression hose intact SKIN Skin color, texture, turgor normal, no suspicious rashes or lesions to exposed skin Latest Ref Rng 08/28/2023 Protein, Total 6.3 - 8.0 g/dL 6.2 (L) Albumin 3.9 - 4.9 g/dL 4.1 Calcium 8.5 - 10.2 mg/dL 9.2 Bilirubin, Total 0.2 - 1.3 mg/dL 0.3 Alkaline Phosphatase 34 - 123 U/L 100 AST 13 - 35 U/L 18 ALT 7 - 38 U/L 15 Glucose 74 - 99 mg/dL 87 BUN 7 - 21 mg/dL 11 Creatinine 0.58 - 0.96 mg/dL 0.59 Sodium 136 - 144 mmol/L 144 Potassium 3.7 - 5.1 mmol/L 4.3 Chloride 97 - 105 mmol/L 105 CO2 22 - 30 mmol/L 28 Anion Gap 9 - 18 mmol/L 11 eGFR >=60 mL/min/1.73m 94 Cholesterol, Total <200 mg/dL 176 Triglyceride <150 mg/dL 70 HDL Cholesterol >39 mg/dL 81 Non HDL Cholesterol <130 mg/dL 95 Fasting Time hrs 12 VLDL Cholesterol <30 mg/dL 14 TC:HDL Ratio <5.10 2.17 LDL Cholesterol <100 mg/dL 81 LDL:HDL Ratio <2.54 1.00 Legend: (L) Low Shingrix Vaccine(2 of 3) due on 10/17/2022 Covid-19 Vaccine( season) due on 03/22/2024 Influenza Vaccine(1) due on 03/22/2024 RSV Vaccine(1 - 1-dose 75+ series) due on 01/08/2025 Depression Screening due on 01/08/2025 Anxiety Screening due on 01/08/2025 Bone Density Screening due on 02/02/2026 Diabetes Screening due on 08/28/2026 DTaP,Tdap,Td Vaccine(5 - Td or Tdap) due on 10/09/2026 Advance Directive Discussion Completed Hepatitis C Screening Completed Pneumococcal Vaccine: 65+ Completed Mammogram Screening Discontinued Colorectal Cancer Screening Discontinued ASSESSMENT/PLAN: 1. Mixed hyperlipidemia - ICD9: 272.2, ICD10: E78.2 (primary diagnosis) - Controlled - Continue current medications - Counseled on healthy diet and regular exercise - Discussed need for and benefit of weight loss. BMI 38.75 kg/(m^2) - Follow up in 6 months, sooner should any other issues arise. - COMPREHENSIVE METABOLIC PANEL 2. Encounter for immunization - ICD9: V03.89, ICD10: Z23 - INFLUENZA VACCINE, PRSV FREE, AGE 65+ YR, HIGH DOSE, TRIVALENT (FLUZONE HIGH-DOSE) - [place] COVID-19 VACCINE AGE 12+ YR 3. Venous incompetence - ICD9: 459.81, ICD10: I87.2 - COMPRESSION STOCKINGS 4. Left spastic hemiparesis (HCC) - ICD9: 342.10, ICD10: G81.14 -stable- stroke in 30's- - continue medications ad cane for ambulation 5. Hyperparathyroidism (HCC) - ICD9: 252.00, ICD10: E21.3 - follow-up as scheduled with Dr. Elizabeth 6. Obesity, Class II, BMI 35-39.9 - ICD9: 278.00, ICD10: E66.9 - Lengthy discussion in office today regarding [...] track your calories and exercise as well. 7. OAB (overactive bladder) - ICD9: 596.51, ICD10: N32.81 - continue Detrol as prescribed 8. Gastroesophageal reflux disease, unspecified whether esophagitis present - ICD9: 530.81, ICD10: K21.9 - continue current medication 9. Migraine without aura and without status migrainosus, not intractable - ICD9: 346.10, ICD10: G43.009 - stable on current regime 10. Other osteoporosis, unspecified pathological fracture presence - ICD9: 733.09, ICD10: M81.8 - Reviewed the need for Calcium and Vitamin D supplements and weight bearing exercise as tolerated - ZOLEDRONIC ACID 5 MG/100 ML IN MANNITOL 5 %-WATER INTRAVENOUS PIGGYBCK Kassandra Sharma APRN.[employer] Prescription instructions reviewed with patient as applicable. Patient advised if symptoms do not improve or if symptoms worsen sooner, to contact their primary care physician. Potential red flag symptoms discussed with the patient. Reviewed appropriate action plan to take if red flag symptoms occur. Patient agreeable to treatment plan. Medical Decision Making: Problems: Moderate: 2+ stable chronic illnesses Data: Unique test result(s) reviewed: 2 Unique test(s) ordered: 1 Risk: Moderate: Moderate risk from testing/treatment Medical Decision Making Level: 4 - Moderate documented in this encounter [facility] 04-09-2024 Telephone encounter Note Joanne with [facility] calls to request an order for compression hose for patient (1 pair as that is what insurance will authorize currently). Pended with previously used diagnosis. Please review and advise, Liv Hayes RN [facility] 04-09-2024 Miscellaneous Notes Joanne with [facility] calls to request an order for compression hose for patient (1 pair as that is what insurance will authorize currently). Pended with previously used diagnosis. Please review and advise, Liv Hayes RN documented in this encounter [facility] 03-20-2024 Telephone encounter Note Lasix not due for refill, last rx written 01/14/24 #90 with 1 refill. All other refills are due to be renewed. Declan Luis LPN [facility] 03-20-2024 Miscellaneous Notes Lasix not due for refill, last rx written 01/14/24 #90 with 1 refill. All other refills are due to be renewed. Declan Luis LPN Prescription Refill Information The patient has been identified by name and date of : Yes Caregiver verified no other encounters exist for this prescription request: Yes Caregiver confirmed with patient/requestor that no other refills are due, in the near future, with this provider at this time: Yes The last office visit in the department: 01/09/24 Does the patient have a future office visit with this provider/department: Yes Requested Prescriptions Pending Prescriptions Disp Refills gabapentin (NEURONTIN) 300 mg capsule 90 capsule 0 Sig: Take 1 capsule by mouth once daily for 90 days. amitriptyline (ELAVIL) 75 mg tablet 90 tablet 1 Sig: Take 1 tablet by mouth daily at bedtime. tolterodine ER (DETROL LA) 4 mg 24 hr capsule 90 capsule 1 Sig: Take 1 capsule by mouth once daily. omeprazole (PRILOSEC) 40 mg capsule 90 capsule 1 Sig: Take 1 capsule by mouth once daily. potassium chloride 20 mEq/15 mL solution 900 mL 2 Sig: Take 30 mL by mouth once daily. atorvastatin (LIPITOR) 10 mg tablet 90 tablet 1 Sig: Take 1 tablet by mouth once daily. Discontinue simvastatin furosemide (LASIX) 40 mg tablet 90 tablet 1 Sig: Take 1 tablet by mouth once daily. Mickie Riojas March 20, 2024 10:11 AM documented in this encounter [facility] 03-20-2024 Telephone encounter Note Prescription Refill Information The patient has been identified by name and date of : Yes Caregiver verified no other encounters exist for this prescription request: Yes Caregiver confirmed with patient/requestor that no other refills are due, in the near future, with this provider at this time: Yes The last office visit in the department: 01/09/24 Does the patient have a future office visit with this provider/department: Yes Requested Prescriptions Pending Prescriptions Disp Refills gabapentin (NEURONTIN) 300 mg capsule 90 capsule 0 Sig: Take 1 capsule by mouth once daily for 90 days. amitriptyline (ELAVIL) 75 mg tablet 90 tablet 1 Sig: Take 1 tablet by mouth daily at bedtime. tolterodine ER (DETROL LA) 4 mg 24 hr capsule 90 capsule 1 Sig: Take 1 capsule by mouth once daily. omeprazole (PRILOSEC) 40 mg capsule 90 capsule 1 Sig: Take 1 capsule by mouth once daily. potassium chloride 20 mEq/15 mL solution 900 mL 2 Sig: Take 30 mL by mouth once daily. atorvastatin (LIPITOR) 10 mg tablet 90 tablet 1 Sig: Take 1 tablet by mouth once daily. Discontinue simvastatin furosemide (LASIX) 40 mg tablet 90 tablet 1 Sig: Take 1 tablet by mouth once daily. Mickie Riojas March 20, 2024 10:11 AM [facility] 02-03-2024 History of Present illness Narrative Radiology Service Progress Note PATIENT NAME: Janay Frederick DATE OF SERVICE: February 03, 2024 TIME: 1:05 PM PATIENT IDENTITY VERIFICATION COMPLETED USING TWO [...] place to prevent falls during this visit? Increased Observations by Caregivers PATIENT GENDER DATA: Female. status: : No status: NO. PATIENT RELEVANT IMPLANT DATA REVIEWED: Not Applicable PATIENT PRESENTS WITH AN IMPLANTABLE OR ATTACHED DEATH CLEARANCE COORDINATOR: No RADIOLOGY DEPARTMENT: Bone Density PERIPHERAL IV DATA: Not applicable SIGNED BY: RT Carie(Grant) February 03, 2024 1:05 PM documented in this encounter [facility] 02-03-2024 Note HNO ID: [id number] Author: GENEVIEVE RIVERA RT(Grant) Service: ? Author Type: Technologist Type: Progress Notes Filed: 02/03/2024 13:41 Note Text: Radiology Service Progress Note PATIENT NAME: Janay Frederick DATE OF SERVICE: February 03, 2024 TIME: 1:05 PM PATIENT IDENTITY VERIFICATION COMPLETED USING TWO [...] place to prevent falls during this visit? Increased Observations by Caregivers PATIENT GENDER DATA: Female. status: : No status: NO. PATIENT RELEVANT IMPLANT DATA REVIEWED: Not Applicable PATIENT PRESENTS WITH AN IMPLANTABLE OR ATTACHED DEATH CLEARANCE COORDINATOR: No RADIOLOGY DEPARTMENT: Bone Density PERIPHERAL IV DATA: Not applicable SIGNED BY: RT Carie(R) February 03, 2024 1:05 PM [facility] 01-13-2024 Telephone encounter Note The patient has been identified by name and date of : Yes Caregiver verified no other encounters exist for this prescription request: Yes Caregiver confirmed with patient/requestor that no other refills are due, in the near future, with this provider at this time: Yes The last office visit in the department: 01/09/2024 Does the patient have a future office visit with this provider/department: Yes 04/14/2024 Requested Prescriptions Pending Prescriptions Disp Refills furosemide (LASIX) 40 mg tablet 90 tablet 1 Sig: Take 1 tablet by mouth once daily. Edyta Cardenas RN January 13, 2024 6:11 PM [facility] 01-13-2024 Miscellaneous Notes The patient has been identified by name and date of : Yes Caregiver verified no other encounters exist for this prescription request: Yes Caregiver confirmed with patient/requestor that no other refills are due, in the near future, with this provider at this time: Yes The last office visit in the department: 01/09/2024 Does the patient have a future office visit with this provider/department: Yes 04/14/2024 Requested Prescriptions Pending Prescriptions Disp Refills furosemide (LASIX) 40 mg tablet 90 tablet 1 Sig: Take 1 tablet by mouth once daily. Edyta Cardenas RN January 13, 2024 6:11 PM documented in this encounter [facility] 01-10-2024 Telephone encounter Note Order, OV note and demographics forwarded to [facility] as requested. Yael Flores LPN After documented -fax failed multiple times. Sent to [facility] via community center worker. Yael Flores LPN [facility] 01-10-2024 Miscellaneous Notes Order, OV note and demographics forwarded to [facility] as requested. Yael Flores LPN After documented -fax failed multiple times. Sent to [facility] via community center worker. Yael Flores LPN Janay is calling Shorty Teresa MD today with concern regarding location change of physical therapy Patient would like to go to [facility] for her Physical Therapy. Patient asking to have prescription faxed to [phone]. ( Patient has been identified by name and birthdate. Duration of symptoms: N/A Person calling: self Call patient at: on cell [phone] (home) [phone] (cell) Was an appointment scheduled: No Closing statement: Results or non-symptom based questions: Thank you for calling [facility], your call will be returned within the next business day. Sveta Buckley documented in this encounter [facility] 01-10-2024 Telephone encounter Note Janay is calling Shorty Teresa MD today with concern regarding location change of physical therapy Patient would like to go to [facility] for her Physical Therapy. Patient asking to have prescription faxed to [phone]. ( Patient has been identified by name and birthdate. Duration of symptoms: N/A Person calling: self Call patient at: on cell [phone] (home) [phone] (cell) Was an appointment scheduled: No Closing statement: Results or non-symptom based questions: Thank you for calling [facility], your call will be returned within the next business day. Sveta Buckley [facility] 01-09-2024 Instructions Shorty Teresa MD - 01/09/2024 1:18 PM EDT Please schedule your DXA scan out front before you leave today. Screening schedule The following prevention plan is recommended: Advance Directive Discussion Never done Behavioral Health Screening Never done Bone Density Screening due on 09/11/2023 Covid-19 Vaccine() due on 10/18/2023 WHAT YOU CAN DO TO PREVENT FALLS Many falls can be prevented. By making some changes, you can lower your chances of falling. Four things YOU can do to prevent falls for you* and your caregiver 1. Begin a regular exercise program Exercise is one of the most important ways to lower your chances of falling. It makes you stronger and helps you feel better. Exercises that improve balance and coordination (like Solo Chi) are the most helpful. Lack of exercise leads to weakness and increases your chances of falling. Ask your doctor or health care provider about the best type of exercise program for you. 2. Have your health care provider review your medicines Have your doctor or pharmacist review all the medicines you take, even wble-ifu-szohada medicines. As you get older, the way medicines work in your body can change. Some medicines, or combinations of medicines, can make you sleepy or dizzy and can cause you to fall. 3. Have your vision checked Have your eyes checked by an eye doctor at least once a year. You may be wearing the wrong glasses or have a condition like glaucoma or cataracts that limits your vision. Poor vision can increase your chances of falling. 4. Make your home safer About half of all falls happen at home. To make your home safer: Remove things you can trip over (like papers, books, clothes, and shoes) from stairs and places where you walk. Remove small throw rugs or use double-sided tape to keep the rugs from slipping. Keep items you use often in cabinets you can reach easily without using a step stool. Have grab bars put in next to your toilet and in the tub or shower. Use non-slip mats in the bathtub and on shower floors. Improve the lighting in your home. As you get older, you need brighter lights to see well. Hang light-weight curtains or shades to reduce glare. Have handrails and lights put in on all staircases. Wear shoes both inside and outside the house. Avoid going barefoot or wearing slippers. For more information, contact: Centers for Disease Control and Prevention www.cdc.gov/injury * This information may not apply if you have certain medical conditions. documented in this encounter [facility] 01-09-2024 Note HNO ID: [id number] Author: SHORTY TERESA MD Service: ? Author Type: Physician Type: Progress Notes Filed: 01/13/2024 07:23 Note Text: Janay Frederick is a 73 year old female here for a Medicare wellness visit. Patient has been in good health without hospitalizations or ER visits. Has not had any falls in several months with the use of her cane. Feels steady on her feet. Agreeable to COVID vaccine today. Up to date on cancer screening. Has order in the system for her DXA from endocrinology's office. Medicare Health Risk Assessment General Health Very good Exercise: Minutes/Day 30 min Exercise: Days/Week 3 days Alcohol: Daily Use Never Alcohol: Drinks/Day Patient does not drink Alcohol: 6 or more drinks Never Feel off balance No Concerns: Teeth/Dentures No Concerns: Sexual function No Troubled by feelings None of the above Frequency: Eating healthy diet Nearly every day ADLs requiring help Housework Safety precautions in home/vehicle Yes Smoke, vape, chews tobacco No Difficulty hearing No Difficulty seeing No Current Providers Specialists: I have reviewed specialist-related care of the patient in the medical record. Current care team: Patient Care Team: Shorty Teresa MD as PCP - General (Family Medicine) Outside specialists seen: Dr. Nur-pain management, Dr. Maravilla-Vascular, Dr. Flanagan-endocrinology, Dr. Vance-endo surgery Dr. Jonas-ortho Medical/Family history review Reviewed and updated problem list, medical/surgical/family/social history, medications, and allergies. Opioid use review Opioid Medications (last 90 days) 10/12/2023 00:00 Opioid Medications hydrocodone/acetaminophen 3 tablet PRN ORAL (5-325 mg tab) No sig Details Patient-reported medication Prescribed No opioid use on file in the last 90 days Does patient have risk factors for opioid abuse? No Pain overview Current pain concerns and treatment plan reviewed. Patient under the care of a specialist. Anxiety/Depression screening PHQ-2 Score: 0 Recommendation: no further intervention at this time Cognitive screening Mini Cog Score: 3 Cognitive screening reviewed and No further action needed (score 3-5). Functional Observation Was the patient's Timed Up AND Go test unsteady or ? 12 seconds? Yes Advance Care Planning Surrogate decision maker and/or advance care plan documented FULL CODE Measurements BP 132/70[recheck[ Pulse 84 Resp 16 Wt 203 lb 6.4 oz (92.3kg) SpO2 98% Vision Screening: Right: 20/40 Left: 20/ 50 Both: 20/40 ASSESSMENT/PLAN: 1. Medicare annual wellness visit, subsequent - ICD9: V70.0, ICD10: Z00.00 (primary diagnosis)Medicare annual wellness visit, subsequent (Z.) - Counseled on healthy diet and regular exercise - Fall avoidance information provided - Personalized prevention plan provided 2. Osteopenia, unspecified location - ICD9: 733.90, ICD10: M85.80 - continue tx with Reclast - Reviewed the need for Calcium and Vitamin D supplements and weight bearing exercise as tolerated 3. Unsteady gait when walking - ICD9: 781.2, ICD10: R26.81 Referral to PT to help with balance and strength. - CONSULT TO PHYSICAL THERAPY 4. At high risk for falls - ICD9: V15.88, ICD10: Z91.81 Referral to PT to help with balance and strength. - CONSULT TO PHYSICAL THERAPY 5. Encounter for immunization - ICD9: V03.89, ICD10: Z23 - [place] COVID-19 VACCINE (2022- [place]) AGE 12+ YR 6. Decreased visual acuity - ICD9: 369.9, ICD10: H54.7 F/u with optho. Shorty Teresa MD [facility] 01-09-2024 History of Present illness Narrative Images from the original note were not included. Janay Frederick is a 73 year old female here for a Medicare wellness visit. Patient has been in good health without hospitalizations or ER visits. Has not had any falls in several months with the use of her cane. Feels steady on her feet. Agreeable to COVID vaccine today. Up to date on cancer screening. Has order in the system for her DXA from endocrinology's office. Medicare Health Risk Assessment General Health Very good Exercise: Minutes/Day 30 min Exercise: Days/Week 3 days Alcohol: Daily Use Never Alcohol: Drinks/Day Patient does not drink Alcohol: 6 or more drinks Never Feel off balance No Concerns: Teeth/Dentures No Concerns: Sexual function No Troubled by feelings None of the above Frequency: Eating healthy diet Nearly every day ADLs requiring help Housework Safety precautions in home/vehicle Yes Smoke, vape, chews tobacco No Difficulty hearing No Difficulty seeing No Current Providers Specialists: I have reviewed specialist-related care of the patient in the medical record. Current care team: Patient Care Team: Shorty Teresa MD as PCP - General (Family Medicine) Outside specialists seen: Dr. Nur-pain management, Dr. Maravilla-Vascular, Dr. Flanagan-endocrinology, Dr. Vance-endo surgery Dr. Jonas-ortho Medical/Family history review Reviewed and updated problem list, medical/surgical/family/social history, medications, and allergies. Opioid use review Opioid Medications (last 90 days) 10/12/2023 00:00 Opioid Medications hydrocodone/acetaminophen 3 tablet PRN ORAL (5-325 mg tab) No sig Details Patient-reported medication Prescribed No opioid use on file in the last 90 days Does patient have risk factors for opioid abuse? No Pain overview Current pain concerns and treatment plan reviewed. Patient under the care of a specialist. Anxiety/Depression screening PHQ-2 Score: 0 Recommendation: no further intervention at this time Cognitive screening Mini Cog Score: 3 Cognitive screening reviewed and No further action needed (score 3-5). Functional Observation Was the patient's Timed Up & Go test unsteady or ? 12 seconds? Yes Advance Care Planning Surrogate decision maker and/or advance care plan documented FULL CODE Measurements BP 132/70[recheck[ Pulse 84 Resp 16 Wt 203 lb 6.4 oz (92.3kg) SpO2 98% Vision Screening: Right: 20/40 Left: 20/ 50 Both: 20/40 ASSESSMENT/PLAN: 1. Medicare annual wellness visit, subsequent - ICD9: V70.0, ICD10: Z00.00 (primary diagnosis)Medicare annual wellness visit, subsequent (Z) - Counseled on healthy diet and regular exercise - Fall avoidance information provided - Personalized prevention plan provided 2. Osteopenia, unspecified location - ICD9: 733.90, ICD10: M85.80 - continue tx with Reclast - Reviewed the need for Calcium and Vitamin D supplements and weight bearing exercise as tolerated 3. Unsteady gait when walking - ICD9: 781.2, ICD10: R26.81 Referral to PT to help with balance and strength. - CONSULT TO PHYSICAL THERAPY 4. At high risk for falls - ICD9: V15.88, ICD10: Z91.81 Referral to PT to help with balance and strength. - CONSULT TO PHYSICAL THERAPY 5. Encounter for immunization - ICD9: V03.89, ICD10: Z23 - [employer] COVID-19 VACCINE (2022- [place]) AGE 12+ YR 6. Decreased visual acuity - ICD9: 369.9, ICD10: H54.7 F/u with optho. Shorty Teresa MD documented in this encounter [facility] 01-02-2024 Note HNO ID: [id number] Author: ARNOL JONAS MD Service: ? Author Type: Physician Type: Progress Notes Filed: 01/14/2024 08:15 Note Text: Patient presents for hyaluronic acid gel injection. History and exam are otherwise unchanged. Large Joint Arthro/Inj: R knee joint Informed Consent Consent Obtained: Verbal [place] Protocol A moment to CARE was completed. [...] assessment and interventions applicable. No implant(s) inserted. 01/02/2024 3:31 PM The procedure site was prepped in the usual sterile fashion. Site: R knee joint Medications: 3 mL hyaluronate sodium, stabilized 60 mg/3 mL Outcome: Tolerated well, no immediate complications Post-injection instructions were reviewed with the patient and the patient voiced understanding of these instructions. SIGN OUT No specimen collected. No instruments, equipment or retained foreign bodies applicable. Post-procedure follow-up management communicated and Plan of Care Visit completed when applicable [facility] 01-02-2024 History of Present illness Narrative Associated Order(s): Large Joint Arthro/Inj: R knee joint Post-Procedure Diagnose(s): Primary osteoarthritis of right knee Patient presents for hyaluronic acid gel injection. History and exam are otherwise unchanged. Large Joint Arthro/Inj: R knee joint Informed Consent Consent Obtained: Verbal [place] Protocol A moment to CARE was completed. [...] assessment and interventions applicable. No implant(s) inserted. 01/02/2024 3:31 PM The procedure site was prepped in the usual sterile fashion. Site: R knee joint Medications: 3 mL hyaluronate sodium, stabilized 60 mg/3 mL Outcome: Tolerated well, no immediate complications Post-injection instructions were reviewed with the patient and the patient voiced understanding of these instructions. SIGN OUT No specimen collected. No instruments, equipment or retained foreign bodies applicable. Post-procedure follow-up management communicated and Plan of Care Visit completed when applicable documented in this encounter [facility] 12-23-2023 Telephone encounter Note Patient ordered compression hose a few months ago- does she need another pair? Kassandra Sharma APRN.CNP [facility] 12-23-2023 Miscellaneous Notes Patient ordered compression hose a few months ago- does she need another pair? Kassandra Sharma APRN.CNP Patient has been identified by name and date of : Yes, Provider Shorty Teresa MD Date 12/23/2023 Time 3:06 pm Patient phones for refill(s): Requested Prescriptions Pending Prescriptions Disp Refills potassium chloride 20 mEq/15 mL solution 900 mL 2 Sig: Take 30 mL by mouth once daily. dilTIAZem CD (CARTIA XT) 300 mg 24 hr capsule 90 capsule 3 Sig: Take 1 capsule by mouth once daily. hydrocortisone 2.5 % ointment 28.35 g 2 Sig: Apply to affected area two times a day as needed (hemorrhoids). COMPRESSION HOSIERY KNEE LENGTH, AD, 30-40 MMHG 2 Each 0 Sig: once daily. Date of last office visit in primary care: 08/14/2023 Date of next office visit in primary care: 01/09/2024 Please advise. Thank you. Payton Santos. documented in this encounter [facility] 12-23-2023 Telephone encounter Note Patient has been identified by name and date of : Yes, Provider Shorty Teresa MD Date 12/23/2023 Time 3:06 pm Patient phones for refill(s): Requested Prescriptions Pending Prescriptions Disp Refills potassium chloride 20 mEq/15 mL solution 900 mL 2 Sig: Take 30 mL by mouth once daily. dilTIAZem CD (CARTIA XT) 300 mg 24 hr capsule 90 capsule 3 Sig: Take 1 capsule by mouth once daily. hydrocortisone 2.5 % ointment 28.35 g 2 Sig: Apply to affected area two times a day as needed (hemorrhoids). COMPRESSION HOSIERY KNEE LENGTH, AD, 30-40 MMHG 2 Each 0 Sig: once daily. Date of last office visit in primary care: 08/14/2023 Date of next office visit in primary care: 01/09/2024 Please advise. Thank you. Payton Santos. [facility] 11-26-2023 Telephone encounter Note I called and spoke with Tamara. Did discuss repeat request for gel injections. She reports her last injection with Dr. Jonas was in May. She reported great relief with the injection into July. She noticed it started wearing off at that time but felt it was still helping. Discussed will attempt to get approval for repeat injection and our office will contact her for an appointment if approved. Manuel Dao APRN.CNP November 26, 2023 11:09 AM [facility] Work Phone: 11-26-2023 Miscellaneous Notes I called and spoke with Tamara. Did discuss repeat request for gel injections. She reports her last injection with Dr. Jonas was in May. She reported great relief with the injection into July. She noticed it started wearing off at that time but felt it was still helping. Discussed will attempt to get approval for repeat injection and our office will contact her for an appointment if approved. Manuel Dao APRN.CNP November 26, 2023 11:09 AM documented in this encounter [facility] 11-22-2023 Telephone encounter Note === PHARMACY TEAM ==== ADDITIONAL INFORMATION NEEDED/REQUESTED Additional Information Needed: patient update needed describing patient positive response to durolane injection from 05/2023 for prior auth renewal [facility] 11-22-2023 Miscellaneous Notes === PHARMACY TEAM ==== ADDITIONAL INFORMATION NEEDED/REQUESTED Additional Information Needed: patient update needed describing patient positive response to durolane injection from 05/2023 for prior auth renewal Gel injection referral submitted for Durolane for right knee. Patient would like to make an appt with Dr. Jonas for gel injections again. documented in this encounter [facility] 11-18-2023 Telephone encounter Note Gel injection referral submitted for Durolane for right knee. [facility] 11-15-2023 Telephone encounter Note Patient would like to make an appt with Dr. Jonas for gel injections again. [facility] 11-11-2023 Note HNO ID: [id number] Author: TAMARA GONSALES MA Service: ? Author Type: Digital Archivist Type: Progress Notes Filed: 11/11/2023 13:15 Note Text: POPULATION HEALTH NAVIGATION OUTREACH Action/LEO Gustafson sent Mychart message wants to schedule appointment. Scheduled appointment Reason for Outreach Returned Call/MyChart Patient Contacted: Spoke to patient/parent/or legal guardian Patient identified by name and date of : Yes Returned call/MyChart actions taken: Patient scheduled/pended labs: Medicare Annual Wellness Visit Navigation Signature: Tamara Gonsales MA November 11, 2023 1:09 PM [facility] 11-06-2023 Note HNO ID: [id number] Author: TAMARA GONSALES MA Service: ? Author Type: Digital Archivist Type: Progress Notes Filed: 11/06/2023 15:23 Note Text: POPULATION HEALTH NAVIGATION OUTREACH Action/FYI LVM MYCHART MESSAGE SENT ANNUAL MEDICARE WELLNESS HCC closure Reason for Outreach Care Gap/HCC or Scheduling Wellness Visits Care Gaps due: Medicare Annual Wellness Visit Patient Contacted: Unable or unnecessary to reach patient: Left message MyChart message sent HCC related Navigation Signature: Tamara Gonsales MA November 06, 2023 11:19 AM [facility] 11-06-2023 History of Present illness Narrative POPULATION HEALTH NAVIGATION OUTREACH Action/FYI LVM MYCHART MESSAGE SENT ANNUAL MEDICARE WELLNESS HCC closure Reason for Outreach Care Gap/HCC or Scheduling Wellness Visits Care Gaps due: Medicare Annual Wellness Visit Patient Contacted: Unable or unnecessary to reach patient: Left message [employer] message sent HCC related Navigation Signature: Tamara Gonsales MA November 06, 2023 11:19 AM documented in this encounter [facility] 11-06-2023 Note Patient Outreach (NE TNAV) ---- JANAY FREDERICK ([id number]) 1950 F Date Time Provider Department 11/06/23 TAMARA GONSALES During your visit today, we recorded the following information about you: Tamara Gonsales MA 11/06/2023 3:23 PM Signed POPULATION HEALTH NAVIGATION OUTREACH Action/FYI LVM MYCHART MESSAGE SENT ANNUAL MEDICARE WELLNESS HCC closure Reason for Outreach Care Gap/HCC or Scheduling Wellness Visits Care Gaps due: Medicare Annual Wellness Visit Patient Contacted: Unable or unnecessary to reach patient: Left message MyChart message sent HCC related Navigation Signature: Tamara Gonsales MA November 06, 2023 11:19 AM Tamara Gonsales MA 11/11/2023 1:15 PM Signed POPULATION HEALTH NAVIGATION OUTREACH Action/LEO Gustafson sent [employer] message wants to schedule appointment. Scheduled appointment Reason for Outreach Returned Call/MyChart Patient Contacted: Spoke to patient/parent/or legal guardian Patient identified by name and date of : Yes Returned call/MyChart actions taken: Patient scheduled/pended labs: Medicare Annual Wellness Visit Navigation Signature: Tamara Gonsales MA November 11, 2023 1:09 PM Allergies As of Date: 11/06/2023 Noted Allergy Reaction FLAGYL (METRONIDAZOLE) 03/26/2017 8 - GI Upset Comments: Severe nausea, malaise, dizziness HCTZ (THIAZIDES) 08/14/2015 14 - Other: See Comments Comments: hypercalcemia Date Reviewed: 08/14/2023 Reviewed by: Mickie Green MA - Fully Assessed Reason for Visit: Population Health Navigation Outreach [3910] Cmt: [facility] HCC/CARE GAPS ADAN PCSA Prescriptions as of 11/11/2023 - omeprazole (PRILOSEC) 40 mg capsule Take 1 capsule by mouth once daily. - atorvastatin (LIPITOR) 10 mg tablet Take 1 tablet by mouth once daily. Discontinue simvastatin - gabapentin (NEURONTIN) 300 mg capsule Take 1 capsule by mouth once daily for 90 days. - tolterodine ER (DETROL LA) 4 mg 24 hr capsule Take 1 capsule by mouth once daily. - amitriptyline (ELAVIL) 75 mg tablet Take 1 tablet by mouth daily at bedtime. - famotidine (PEPCID) 20 mg tablet Take 1 tablet by mouth at bedtime as needed. - COMPRESSION HOSIERY KNEE LENGTH, AD, 30-40 MMHG once daily. - potassium chloride 20 mEq/15 mL solution Take 30 mL by mouth once daily. - furosemide (LASIX) 40 mg tablet Take 1 tablet by mouth once daily. - hydrocortisone 2.5 % ointment Apply to affected area twice daily as needed (hemorrhoids). - acetaminophen (TYLENOL) 500 mg tablet Take 1 tablet by mouth every 6 hours as needed for pain. - uwftzew-sjwqfijgi-pfuuhnl D3 500 mg-5 mcg (200 unit) per tablet Take 1 tablet by mouth three times daily. - dilTIAZem CD (CARTIA XT) 300 mg 24 hr capsule Take 1 capsule by mouth once daily. - zoledronic acid (RECLAST) 5 mg/100 mL pgbk PREMIX piggyback Inject 100 mL intravenously one time only for 1 dose. - HYDROcodone-acetaminophen (NORCO) 5-325 mg per tablet Take 3 tablets by mouth as needed. - docusate sodium (COLACE) 100 mg capsule Take 1 capsule by mouth twice daily. - cholecalciferol (VITAMIN D3) 50 mcg (2,000 unit) tablet Take 2,000 Units by mouth once daily. - multivitamin tablet Take 1 tablet by mouth once daily. 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 01/16/2016 BLUE NEVUS NOSE [D23.30] 08/15/2005 Acute, but ill-defined, cerebrovascular disease* 09/19/2017 Unspecified hemorrhoids without mention of comp* 01/16/2016 Vitamin D deficiency [E55.9] 02/11/2009 Leiomyoma of uterus, unspecified [D25.9] 02/11/2009 10/24/2018 Morbid obesity (HCC) [E66.01] 12/20/2009 01/31/2023 Gastric ulcer with obstruction [K25.9] 12/20/2009 10/24/2018 Osteoarth NOS-l/leg [VCP0251] 06/29/2010 Degenerative arthritis of left knee [M17.12] 02/07/2012 Pes anserinus bursitis of left knee [M70.52] 05/26/2012 Osteopenia [M85.80] 08/31/2013 HLD (hyperlipidemia) [E78.5] 02/14/2014 OAB (overactive bladder) [N32.81] 02/14/2014 Left spastic hemiparesis (HCC) [G81.14] 03/16/2014 Special screening for malignant neoplasms, colo*02/24/2015 10/24/2018 Primary osteoarthritis involving multiple joint*08/14/2015 Difficulty swallowing solids [R13.10] 10/20/2015 10/24/2018 Cerebrovascular accident (CVA) due to thrombosi*04/13/2016 Chronic bilateral low back pain without sciatic*04/13/2016 Incomplete uterovaginal prolapse [N81.2] 11/01/2016 Pelvic organ prolapse quantification stage 2 cy*06/10/2017 Dysphagia [R13.10] 07/09/2017 10/24/2018 Gastric band slippage [K95.09] 07/09/2017 06/26/2018 Preop testing [Z01.818] 10/11/2017 06/26/2018 Venous incompetence [I87.2] Hypercalcemia [E83.52] 05/13/2021 Osteoporosis [M81.0] 05/13/2021 Obesity, Class III, BMI 40-49.9 (morbid obesity*07/27/2021 Hyperparathyroidism (HCC) [E21.3] 07/27/2021 Migrain (more content not included)... [facility] 08-14-2023 Note HNO ID: [id number] Author: SHORTY TERESA MD Service: ? Author [...] DEVICE 04/21/2010 Performed by THI ALCOCER at [facility] LAPS RPR PARAESPHGL HRNA INCL FUNDPLSTY W/O MESH 04/21/2010 Performed by THI ALCOCER at [facility] MAL LESION FACE,EAR,EYEL 1.1-2CM 01/28/06 Left cheek and right forearm lesions PAST SURGICAL HISTORY OF July 06, 2009 Hysteroscopy DANOK PAST SURGICAL HISTORY OF 10/2017 vaginal vault suspension PAST SURGICAL HISTORY OF 10/2017 Lap band removed UNLIS LAPAROSCOPIC PROCEDURE LIVER 04/21/2010 Performed by THI ALCOCER at [facility] Family History FAMILY HISTORY Problem Relation [...] every 6 hours as needed for pain. crlsiii-vmgfcwyzn-jnzgpbf D3 500 mg-5 mcg (200 unit) per [...] mcg (2,000 un (more content not included)... [facility] 08-12-2023 Note HNO ID: [id number] Author: SHORTY TERESA MD Service: ? Author Type: Physician Type: Progress Notes Filed: 08/12/2023 16:59 Note Text: Chief Complaint Patient presents with: Hospital F/U: Discharged from [facility] 08/05/23 [facility] Janay Frederick is a 73 year old female who presents here today for Hospital Discharge Follow up.. Patient admitted to [facility] from 07/28 to 08/01 after presenting to [...] site back GERD (gastroesophageal reflux disease) Hyperparathyroidism ([facility]) s/p parathyroidectomy 02/08/2023 Insomnia Knee pain, chronic Lumbago Migraine without aura on diltiazem Obesity, unspecified stated BMI 40.5 HT: 61.5 WT: 220 Osteopenia of multiple sites Overactive bladder Personal history of unspecified urinary disorder years ago since last bladder infection SCC (squamous cell carcinoma) Stroke ([facility]) 12/06/1981 cva left side residual, young [...] DEVICE 04/21/2010 Performed by THI ALCOCER at [facility] LAPS RPR PARAESPHGL HRNA INCL FUNDPLSTY W/O MESH 04/21/2010 Performed by THI ALCOCER at [facility] MAL LESION FACE,EAR,EYEL 1.1-2CM 01/28/06 Left cheek and right forearm lesions PAST SURGICAL HISTORY OF July 06, 2009 Hysteroscopy DANDC PAST SURGICAL HISTORY OF 10/2017 vaginal vault suspension PAST SURGICAL HISTORY OF 10/2017 Lap band removed UNLIS LAPAROSCOPIC PROCEDURE LIVER 04/21/2010 Performed by THI ALCOCER at [facility] Family History FAMILY HISTORY Problem Relation [...] Take 1 table (more content not included)... [facility] 07-23-2023 History of Present illness Narrative Radiology Service [...] PERIPHERAL IV DATA: Not applicable SIGNED BY: KAITY Werner) July 23, 2023 7:16 PM documented in this encounter [facility] 07-23-2023 Note HNO ID: [id number] Author: Pastora Bell RT(R) Service: Radiology Author [...] IV DATA: Not applicable SIGNED BY: RT Debbi(Grant) July 23, 2023 7:16 PM [facility] 07-23-2023 Note HNO ID: [id number] Author: Shorty Teresa MD Service: ? Author [...] DEVICE 04/21/2010 Performed by THI ALCOCER at [facility] LAPS RPR PARAESPHGL HRNA INCL FUNDPLSTY W/O MESH 04/21/2010 Performed by THI ALCOCER at [facility] MAL LESION FACE,EAR,EYEL 1.1-2CM 01/28/06 Left cheek and right forearm lesions PAST SURGICAL HISTORY OF July 06, 2009 Hysteroscopy DANDC PAST SURGICAL HISTORY OF 10/2017 vaginal vault suspension PAST SURGICAL HISTORY OF 10/2017 Lap band removed UNLIS LAPAROSCOPIC PROCEDURE LIVER 04/21/2010 Performed by THI ALCOCER at [facility] Family History FAMILY HISTORY Problem Relation [...] once daily. HYDROcodone-a (more content not included)... [facility] 06-19-2023 Note HNO ID: [id number] Author: JeanettelogKassandra guzman APRN.[employer] Service: ? Author Type: Nurse Practitioner Type: [...] every 6 hours as needed for pain. ttvqhdx-fiarwzckv-gfsjqak D3 500 mg-5 mcg (200 unit) per [...] AND Units 01/31/2023 (more content not included)... [facility] 06-19-2023 History of Present illness Narrative 06/19/2023 [...] every 6 hours as needed for pain. kqqmnql-fasnabvnb-gdetucq D3 500 mg-5 mcg (200 unit) per [...] Abs Lymph 1.00 - 4.00 k/uL 1.99 Sauk% % 8.0 Abs Sauk <0.87 k/uL 0.57 Eosin% % 4.2 Abs [...] due - ICD9: V05.9, ICD10: Z23 - [employer] COVID-19 VACCINE (2022- SEASON) AGE 12+ YR [...] which included preparing to see the patient, hrur-ye-dngp patient care, completing clinical documentation, obtaining and/or reviewing separately obtained history, performing a medically appropriate examination, counseling and educating the patient/family/caregiver, and ordering medications, tests, or procedures. documented in this encounter [facility] 05-29-2023 Instructions Hayden Flanagan MD - 05/29/2023 4:26 PM EST - Continue the current calcium and vitamin D intake - Blood tests in July as planned - Repeat bone density scan on or after 09/12/2023 - I will see you in October 2023 and will decide on the Reclast infusion documented in this encounter [facility] 05-29-2023 Note HNO ID: [id number] Author: Hayden Flanagan MD Service: ? Author [...] DEVICE 04/21/2010 Performed by THI ALCOCER at [facility] LAPS RPR PARAESPHGL HRNA INCL FUNDPLSTY W/O MESH 04/21/2010 Performed by THI ALCOCER at [facility] MAL LESION FACE,EAR,EYEL 1.1-2CM 01/28/06 Left cheek and right forearm lesions PAST SURGICAL HISTORY OF July 06, 2009 Hysteroscopy [facility] PAST SURGICAL HISTORY OF 10/2017 vaginal vault suspension PAST SURGICAL HIST (more content not included)... [facility] 05-29-2023 History of Present illness Narrative ENDOCRINOLOGY [...] DEVICE 04/21/2010 Performed by THI ALCOCER at [facility] LAPS RPR PARAESPHGL HRNA INCL FUNDPLSTY W/O MESH 04/21/2010 Performed by THI ALCOCER at [facility] MAL LESION FACE,EAR,EYEL 1.1-2CM 01/28/06 Left cheek and right forearm lesions PAST SURGICAL HISTORY OF July 06, 2009 Hysteroscopy D&C PAST SURGICAL HISTORY OF 10/2017 vaginal vault suspension PAST SURGICAL HISTORY OF 10/2017 Lap band removed UNLIS LAPAROSCOPIC PROCEDURE LIVER 04/21/2010 Performed by THI ALCOCER at [facility] Medications Current Outpatient Medications Medication Sig [...] needed (mouth or hand numbness or tingling). hbzbmml-iwhbeiyhr-skkkzmo D3 500 mg-5 mcg (200 unit) per [...] Hayden Flanagan MD documented in this encounter [facility] 05-28-2023 Note HNO ID: [id number] Author: Arnol Jonas MD Service: ? Author Type: Physician Type: Progress Notes Filed: 05/28/2023 4:33 PM Note Text: Janay is here for Durolane injection in the right knee. History and physical exam unchanged. Large Joint Arthro/Inj: R knee joint Informed Consent Consent Obtained: Verbal [facility] Protocol A moment to CARE was completed. [...] which included preparing to see the patient, xmgf-hz-ldhd patient care, completing clinical documentation, obtaining and/or reviewing separately obtained history, performing a medically appropriate examination, counseling and educating the patient/family/caregiver. Arnol Jonas MD Orthopaedic Surgery [facility] 05-17-2023 Miscellaneous Notes May 17, 2023 PID: [id number] Janay Frederick [address] [place] [address] Dear Ms. Frederick, We are pleased to [...] report will be kept on file at [facility] as part of your permanent medical record and are available for your continuing care. Thank you for allowing us to help in meeting your health care needs. Sincerely, Dr. Matos Interpreting Radiologist [facility] (Normal over 40) documented in this encounter [facility] 05-16-2023 History of Present illness [...] PERIPHERAL IV DATA: Not applicable SIGNED BY: Josue Nevilleo Nelida May 16, 2023 2:39 PM documented in this encounter [facility] 05-16-2023 Note HNO ID: [id number] Author: Kathleen Hoffmann Mammo Tech Service: ? Author Type: Paint Roller Covers Supervisor Type: Progress Notes Filed: 05/16/2023 3:03 [...] Shruthi Neville May 16, 2023 2:39 PM [facility] 04-12-2023 Miscellaneous Notes Patient notified. Marlene Loaiza LPN Order approved. Patient calls and states that she is due to have annual mammogram in April. Patient asking if provider can place order so that mammogram can be scheduled? Please review and advise, Tarsha Hernández RN documented in this encounter [facility] 03-20-2023 Miscellaneous Notes PDMP website [...] Payton Marie [employer] documented in this encounter [facility] 02-20-2023 Miscellaneous Notes Images from [...] Leydi Vance MD documented in this encounter [facility] 02-12-2023 History of Past i llness Narrative Problem Noted Date Diagnosed Date Resolved Date Episode of recurrent major d epressive disorder 02/12/2023 06/19/2023 Insomnia 02/02/2022 01/31/2023 Preop testing 10/11/2017 06/26/2018 Overview: Added automatically from request for surgery [id number] Dysphagia 07/09/2017 10/24/2018 Gastric band slippage 07/09/20172017 [...] of this encounter (statuses as of 06/20/2023) [facility]07-25-2023 History of Past illness Narrative* Problem Noted Date Diagnosed Date Resolved Date Episode of recurrent major d epressive disorder 02/12/2023 06/19/2023 Insomnia 02/02/2022 01/31/2023 Preop testing 10/11/2017 06/26/2018 Overview: Added automatically from request for surgery [id number] Dysphagia 07/09/2017 10/24/2018 Gastric band slippage 07/09/20172017 [...] as of this encounter (statuses as of 11/07/2023) [facility]07-22-2023 NoteHNO ID: [id number] Author: Yanelis Diaz MD Service: General Surgery [...] Laura Delgado MD 10 mg at 02/09/23 0753 dilTIAZem CD (CARDIZEM CD, CARTIA XT) cap(s) [...] Delgado MD 600 mg at 02/08/23 1858 aomsyeq-wffuujdau-axzguls D3 500 mg-5 mcg (200 unit) 1 [...] 1 Lozenge at 02/08/23 1544 phenol 1 [place] (CHLORASEPTIC) 1 [place] MUCOUS MEMBRANE (TOPICAL MOUTH AND THROAT) q [...] ORAL q 8 H PRN Macy Jameson APRN.[employer] 1 tablet at 02/09/23 0751 acetaminophen 500 mg tab(s) (TYLENOL) 500 mg ORAL q 4 H PRN Macy Jameson APRN.[employer] Date 02/08/23 07 - 02/09/23 0659 02/09/23 07 - 02/10/23 0659 Shift 9732-4546 4423-8519 9573-3177 24 Hour Total 4401-6802 9226-6509 1051-7652 24 Hour Total INTAKE IV 900 900 [...] Resident Date: February 09, 2023 Time: 8:08 [facility]07-21-2023 NoteHNO ID: [id number] Author: Laura Delgado MD Service: Endocrine Surgery [...] MD General Surgery PGY-4 Endocrine Surgery pager: [phone] S: No acute events since OR. No [...] 1 Lozenge at 02/08/23 1418 phenol 1 [place] (CHLORASEPTIC) 1 [place] MUCOUS MEMBRANE (TOPICAL MOUTH AND THROAT) q 2 H PRN Laura Delgado MD Date 02/07/23 07 - 02/08/23 0659(Not Admitted) 02/08/23 0700 - 02/09/23 0659 Shift 6370-6332 2588-3403 9417-8360 24 Hour Total 3746-3161 6896-8853 1398-3412 24 Hour Total INTAKE IV 900 900 [...] developed and its performance characteristics determined by [facility]'s [facility] Pathology and Laboratory Medicine [place] ( [facility]). It has not been cleared or approved by the FDA. [facility] is regulated under CLIA as qualified [...] agrees to proceed with today?s plan of care.[facility]07-21-2023 NoteHNO ID: [id number] Author: Ita Tamez AA Service: ? Author Type: Emd Special Education Teacher Type: Anesthesia Procedure Notes Filed: 02/08/2023 12:00 PM Note Text: ANESTHESIOLOGY PROCEDURE NOTE Airway General Information Procedure Start Time/Medication Administration: 02/08/2023 11:47 AM Patient location during procedure: OR Timeout Performed Pre-procedure: timeout performed Consent Obtained: Yes Patient identity confirmed: arm band, care bridge/structure inspection team leader and patient Staffing CAA: Ita Tamez AA [...] February 08, 2023 TIME: 11:59 AM CSN: [id number] NoteHNO ID: [id number] Author: Neva Chandler RN Service: Interventional Radiology [...] Frederick DATE: January 31, 2023 TIME: 12:51 [facility]07-13-2023 History of Present illness Narrative * Neva [...] 2023 TIME: 12:51 PM documented in this encounter[facility]23 NoteHNO ID: [id number] Author: Bib Parra Service: Nuclear Medicine Author Type: Paint Roller Covers Supervisor Type: Progress Notes Filed: 01/31/2023 1:59 [...] this link: [email or web address]%[email or web address] SIGNATURE: Cathie Womack Sara Campbell PATIENT NAME: Janay Frederick DATE: January 31, 2023 TIME: 1:58 PM PAGER/CONTACT #:[facility]07-13-2023 Instructions* Patient Instructions* Zelda Eric APRN.[employer] - 01/31/2023 10:57 AM EDT PATIENT PREOPERATIVE INSTRUCTIONS [facility]: [phone] -- [address] [place] [address]. Please read below carefully for your personalized [...] sip of water: atorvastatin (lipitor), diltiazem, gabapentin, Suring, omeprazole (prilosec), potassium chloride, and detrol. If [...] Procedures: - YOU MUST HAVE A RESPONSIBLE PROFILING MACHINE SET UP OPERATOR TOOL TAKE YOU HOME. A SAFETY AND OCCUPATIONAL HEALTH MANAGER OR REFERRAL MANAGEMENT LIAISON CANNOT BE MADE A RESPONSIBLE PROFILING MACHINE SET UP OPERATOR TOOL. - We recommend that a responsible person [...] Advance Directive, please fax a copy to [phone] or email to for it to be added to your chart. If you do not have an Advance Directive, you can find the appropriate form and more information at [email or web address]. We recommend that youcomplete the Advance Directive form found on the website and bring it with you the day of your surgery. It can be witnessed and scanned into your chart that day. Zedla Eric APRN.CNP documented in this encounter[facility] History and physical note * [...] >1 time per night and renal failure. HYDROPONICS WORKER: Negative for abnormal vaginal bleeding, abnormal vaginal [...] DEVICE 04/21/2010 Performed by THI ALCOCER at [facility] LAPS RPR PARAESPHGL HRNA INCL FUNDPLSTY W/O MESH 04/21/2010 Performed by THI ALCOCER at [facility] MAL LESION FACE,EAR,EYEL 1.1-2CM 01/28/06 Left cheek and right forearm lesions PAST SURGICAL HISTORY OF July 06, 2009 Hysteroscopy D&C PAST SURGICAL HISTORY OF 10/2017 vaginal vault suspension PAST SURGICAL HISTORY OF 10/2017 Lap band removed UNLIS LAPAROSCOPIC PROCEDURE LIVER 04/21/2010 Performed by THI ALCOCER at [facility] FAMILY HISTORY Problem Relation Age of [...] naloxone 4 mg/actuation nasal spray (NARCAN) 1 [place] by nasal (alternating) route as needed for [...] 374 QTC Calculation (Bazett) 436 Calculated P [place] 38 Calculated R [place] 18 Calculated T [place] 49 Impression NORMAL SINUS RHYTHM POSSIBLE LEFT ATRIAL ENLARGEMENT BORDERLINE ECG No results found for this or any previous visit (from the past 07734 hour(s)). Assessment Patient has the following medical [...] large neck Non-male patient STOP-Bang Score: 2 [id number] Score: Age: 65-74 Sex: Female CHF history: No Hypertension history: No Stroke/TIA/thromboembolism history: Yes Vascular disease history: Yes Diabetes history: No [id number]-MCLp Score: 5 ASA Class: 3 ANESTHESIA FINDINGS: [...] 9:42 AM PAGER/CONTACT #: documented in this encounterOhio[facility] History of Present illness Narrative* Cathie Womack, ePropertyData Tech - 01/31/2023 9:30 AM EDT RADIOLOGY [...] radiation safety can be found usingthis link: [email or web address]-% 20Diagnostic%20Nuclear%20Medicine%20Procedures.pdf SIGNATURE: Bib Parra PATIENT NAME: Janay Frederick DATE: January 31, 2023 TIME: 1:58 PM PAGER/CONTACT #: documented in this encounterOhiohealth [facility]06-17-2023 NoteIMPRESSION: 1. Progressive right knee osteoarthrosis 2. Stable left TKA Mine Equipment Design Engineer: OBINNA Transcribe Date/Time: Jan 05 2023 2:50P Dictated by : BERNA PEÑA MD This examination was interpreted and the report reviewed and electronically signed by: BERNA PEÑA MD on Jan 05 2023 2:51PM [facility] [id number] NoteHNO ID: [id number] Author: LOLIS Long Service: Radiology Author Type: [...] BY: LOLIS Long January 03, 2023 2:48 PMOhio[facility] [id number] History of Present illness Narrative* Arnol Jonas [...] which included preparing to see the patient, zjdd-zk-irsf patient care, completing clinical documentation, obtaining and/or reviewing separately obtained history, performing a medically appropriate examination, counseling and educating the patient/family/caregiver, and care coordination (not separately reported). Large Joint Arthro/Inj: R knee joint Informed Consent Consent Obtained: Verbal [facility] Protocol A moment to CARE was completed. [...] Jonas MD Orthopaedic Surgery documented in this encounterOhiohealth [facility]06-15-[facility]23 History of Present illness Narrative* Vanessa Chandler CT - 01/03/2023 2:40 PM EDT Radiology Service Progress Note PATIENT [...] DEPARTMENT: General X-ray: Exam(s) Completed: Lower Extremity X- Ray(s): Knee, AP / Lat / Merchant Bilateral and Wt. Bearing PERIPHERAL IV DATA: Not applicable SIGNED BY: LOLIS Long January 03, 2023 2:48 PM documented in this encounterOhiohealth [facility]05-31-2023 Miscellaneous Notes* Telephone Encounter - Kassandra Sharma APRN.CNP - 12/19/2022 7:25 PM EDT PDMP website checked and validated. All prescriptions have been APPROPRIATELY filled. No suspiciousactivity was identified. 12/19/2022 by Kassandra Sharma APRN.LENA * Telephone Encounter - Asia Naranjo Pss - 12/19/2022 3:33 PM EDT Tamara is syncing her meds through [facility] and needs to scripts on these 3 meds. * Telephone Encounter - Asia Naranjo Pss - 12/19/2022 3:32 PM EDT Pharmacy verified in [facility] Patient has been identified by name [...] advise. Asia Naranjo Pss documented in this encounterOhiohealth [facility]05-08-[facility]23 History of Present illness Narrative* Leydi Vance MD - 11/26/2022 1:38 PM EDT [facility] Endocrine Metabolism [place] [facility] Leydi Vance M.D. [address] [place], [place] [address] Name: Janay Frederick Clinic Number: [id number] Date of Service: November 26, 2022 Janay [...] concerns. Leydi Vance MD documented in this encounterOhiohealth [facility]in [facility]05-08-2023 Instructions* Patient Instructions* Amparo Jeffries Ma - 11/26/2022 1:30 PM EDT Thank you for choosing the [facility] Department of Endocrinology, Diabetes and Metabolism. Did you know that you need to call 48 hours in advance of your scheduled visit, if you are unable to make your appointment? The Endocrinology and Metabolism [place] thanks you for your commitment, because patients not showing to their appointment results in a lost opportunity for patients to receive [facility] care at the [facility]. To Cancel an appointment, please choose one of the following: - Call the Appointment Call Center at [phone] - From [employer], Go to Appointments - Cancel Appts If cancelling, consider your need to reschedule to prevent further delays in your care. To Schedule an appointment, please choose one of the following: - Call the Appointment Call Center at [phone] - From [employer], Go to Appointments - Request an Appt documented in this encounterOhiohealth Hardin [facility] Hospital05-04-2023 Miscellaneous Notes* Telephone Encounter - Ita Ferrera - 11/22/2022 11:53 AM EDT Contacted patient and rescheduled appointment. * Telephone Encounter - Crystal Mendoza Sedc - 11/22/2022 11:14 AM EDT Patient left a message stating that she needs to change her appointment she has scheduled with Drea tomorrow, 11-23-2022. Please give her a call and assist with rescheduling. Thank you. Crystal Mendoza Sedc documented in this encounterOhiohealth [facility]in [facility]05-02-2023 Miscellaneous Notes* Telephone Encounter - Liv Hayes RN - 11/20/2022 3:02 PM EDT Macy with the [facility] calls to request last OV noted be faxed to go with wound care referral received. Faxed to [phone] per request. Liv Hayes RN documented in this encounterOhiohealth [facility]in [facility] Hospital04-27-2023 Miscellaneous Notes* Telephone Encounter - Juvenal Toro LPN - 11/15/2022 2:36 PM EDT Spoke with pt and information listed below given. Pt verbalizes understanding. Juvenal Toro LPN * Telephone Encounter - Shorty Teresa MD - 11/15/2022 1:16 PM EDT That should be OK. Continue treatment at home as we discussed and call if wound is worsening. * Telephone Encounter - Tarsha Hernández RN - 11/15/2022 11:57 AM EDT Patient calls and states that she had made an appointment with [facility] and she could not get into see them until 11/29/2022. Patient asking if this is ok? Please review and advise, Tarsha Hernández RN documented in this encounterOhiohealth [facility]in [facility]04-25-2023 History of Present illness Narrative* Shorty Teresa [...] DEVICE 04/21/2010 Performed by THI ALCOCER at [facility] LAPS RPR PARAESPHGL HRNA INCL FUNDPLSTY W/O MESH 04/21/2010 Performed by THI ALCOCER at [facility] MAL LESION FACE,EAR,EYEL 1.1-2CM 01/28/06 Left cheek and right forearm lesions PAST SURGICAL HISTORY OF July 06, 2009 Hysteroscopy D&C PAST SURGICAL HISTORY OF 10/2017 vaginal vault suspension PAST SURGICAL HISTORY OF 10/2017 Lap band removed UNLIS LAPAROSCOPIC PROCEDURE LIVER 04/21/2010 Performed by THI ALCOCER at [facility] Family History FAMILY HISTORY Problem Relation [...] naloxone 4 mg/actuation nasal spray (NARCAN) 1 [place] by nasal (alternating) route as needed for [...] recommend close f/u with wound care at [facility]. Red flags for re-assessment reviewed with patient in detail. 2. Bilateral lower extremity edema - ICD9: 782.3, ICD10: R60.0 Continue with compression stockings, leg elevation with rest, and lasix as prescribed. Shorty Teresa MD documented in this encounterOhiohealth [facility]in [facility]03-03-2023 Miscellaneous Notes* Telephone Encounter - [...] patient. Mickie Babcock Pss documented in this encounterOhiohealth Hardin [facility] Hospital03-03-2023 Miscellaneous Notes* Telephone Encounter - Shorty Teresa MD - 09/21/2022 9:57 AM EST Needing order for BMP stat prior to reclast. Order placed as requested. documented in this encounterOhiohealth Hardin [facility] Hospital02-23-2023 Miscellaneous Notes* Telephone Encounter - Tarsha Leigh - 09/13/2022 1:31 PM EST Spoke with patient and scheduled. Tarsha Leigh * Addendum Note - France Hadley RPh - 09/13/2022 1:01 PM ESTAddended by: FRANCE HADLEY on: 09/13/2022 01:01 PM Modules accepted: Orders * Telephone Encounter - Tarsha Leigh - 09/13/2022 12:47 PM EST Please convert to [place] for scheduling/prior auth purposes and reroute to P TR HEM/ONC PSR for scheduling. Thank you. Tarsha Leigh * Telephone Encounter - Yael Flores LPN - 09/13/2022 12:25 PM EST Phoned patient and advised her order was placed and directed her to scheduling. * Telephone Encounter - Shorty Teresa MD - 09/13/2022 11:32 AM EST Rx reordered. Please assist with infusion scheduling. * Telephone Encounter - Juvenal Toro LPN - 09/13/2022 10:59 AM EST [...] or more parathyroid may not be working. Juvenal Toro LPN documented in this encounterOhiohealth Hardin [facility] Hospital02-23-2023 Miscellaneous Notes* Telephone Encounter - Judy Roldan Ma - 09/13/2022 1:20 PM EST Called and spoke with PT, expressed understanding Gave patient phone number to call and make appt with 's office at [phone]. CLOSED * Telephone Encounter - Hayden Flanagan [...] to someone at Main. documented in this encounterOhiohealth Hardin Memorial Hospital02-22-2023 Instructions* Patient Instructions* Hayden Flanagan MD - 09/12/2022 4:33 PM EST - Please call [phone] and ask for the outpatient infusion to schedule your Recalst infusion - If you decided to meet with the parathyroid surgeon, please let me know documented in this encounterOhiohealth Hardin Memorial Hospital02-22-2023 History of Present illness Narrative* [...] DEVICE 04/21/2010 Performed by THI ALCOCER at [facility] LAPS RPR PARAESPHGL HRNA INCL FUNDPLSTY W/O MESH 04/21/2010 Performed by THI ALCOCER at [facility] MAL LESION FACE,EAR,EYEL 1.1-2CM 01/28/06 Left cheek and right forearm lesions PAST SURGICAL HISTORY OF July 06, 2009 Hysteroscopy D&C PAST SURGICAL HISTORY OF 10/2017 vaginal vault suspension PAST SURGICAL HISTORY OF 10/2017 Lap band removed UNLIS LAPAROSCOPIC PROCEDURE LIVER 04/21/2010 Performed by THI ALCOCER at [facility] Medications Current Outpatient Medications Medication Sig [...] naloxone 4 mg/actuation nasal spray (NARCAN) 1 [place] by nasal (alternating) route as needed for [...] which included preparing to see the patient, [id number] patient care, completing clinical documentation, counseling and educating the patient/family/caregiver, and ordering medications, tests, or procedures. Hayden Flanagan MD documented in this encounterOhiohealth Hardin Memorial Hospital01-31-2023 Miscellaneous Notes* Telephone Encounter - [...] need instruction sheet on use ERNESTO Morales, [place], KIRT documented in this encounterOhiohealth Hardin Memorial Hospital01-30-2023 Miscellaneous Notes* Telephone Encounter - Jimbo Post RN - 08/20/2022 4:26 PM EST Patient returned call and given provider's message below with verbalized understanding. * Telephone Encounter - Yael Flores LPN - 08/20/2022 4:20 PM EST Message left for patient to return call to receive provider's message. * Telephone Encounter - Shorty Teresa MD - 08/20/2022 3:57 PM EST [facility] observational data has not shown any increased risk of cancer, stroke, or heart disease with vaginal estrogen despite outsewer warnings. I would be ok with trying [...] advise, Tarsha Hernández RN documented in this encounterOhiohealth Hardin Memorial Hospital01-27-2023 History of Present illness Narrative* Wagner Roldan PA-C - 08/17/2022 5:20 PM EST Images from the original note were not included. [facility] [place] [facility] NEW CON[facility]ULT PATIENT CLINIC [...] naloxone 4 mg/actuation nasal spray (NARCAN) 1 [place] by nasal (alternating) route as needed for [...] DEVICE 04/21/2010 Performed by THI ALCOCER at [facility] LAPS RPR PARAESPHGL HRNA INCL FUNDPLSTY W/O MESH 04/21/2010 Performed by THI ALCOCER at [facility] MAL LESION FACE,EAR,EYEL 1.1-2CM 01/28/06 Left cheek and right forearm lesions PAST SURGICAL HISTORY OF July 06, 2009 Hysteroscopy D&C PAST SURGICAL HISTORY OF 10/2017 vaginal vault suspension PAST SURGICAL HISTORY OF 10/2017 Lap band removed UNLIS LAPAROSCOPIC PROCEDURE LIVER 04/21/2010 Performed by THI ALCOCER at [facility] FAMILY HISTORY: FAMILY HISTORY Problem Relation [...] with Oncology > 3 mo. Appt w/ B. ERNESTO Roldan MT, PA-C for new Rx Follow-up I [...] Plan: Appointment with Wagner. documented in this encounterOhiohealth Hardin Memorial Hospital01-25-2023 Miscellaneous Notes* Telephone Encounter - [...] called stating she has not heard from [facility] yet about STAT US. Please advise patient. documented in this encounterOhiohealth Hardin Memorial Hospital01-24-2023 Miscellaneous Notes* Telephone Encounter - [...] discussed in office yesterday. documented in this encounterOhiohealth Hardin Memorial Hospital01-23-2023 History of Present illness Narrative* [...] for her chronic lower back pain. Taking Suring as prescribed which is working well for [...] DEVICE 04/21/2010 Performed by THI ALCOCER at [facility] LAPS RPR PARAESPHGL HRNA INCL FUNDPLSTY W/O MESH 04/21/2010 Performed by THI ALCOCER at [facility] MAL LESION FACE,EAR,EYEL 1.1-2CM 01/28/06 Left cheek and right forearm lesions PAST SURGICAL HISTORY OF July 06, 2009 Hysteroscopy D&C PAST SURGICAL HISTORY OF 10/2017 vaginal vault suspension PAST SURGICAL HISTORY OF 10/2017 Lap band removed UNLIS LAPAROSCOPIC PROCEDURE LIVER 04/21/2010 Performed by THI ALCOCER at [facility] Family History FAMILY HISTORY Problem Relation [...] naloxone 4 mg/actuation nasal spray (NARCAN) 1 [place] by nasal (alternating) route as needed for [...] rule out DVT. Scheduled tomorrow morning at [facility]. Discussed with her the importance of [...] 724.2, 338.29, ICD10: M54.50, G89.29 Controlled on Suring. F/u with Dr. Nur for injections. 11. OAB (overactive bladder) - ICD9: 596.51, ICD10: N32.81 Controlled on Detrol [place]. 12. Vitamin D deficiency - ICD9: 268.9, ICD10: E55.9 Repeat labs ordered for next month with endocrinology. Continue current regimen. I spent a total of 45 minutes on the date of the service which included preparing to see the patient, [id number] patient care, completing clinical documentation, obtaining and/or reviewing separately obtained history, performing a medically appropriate examination, counseling and educating the pat ient/family/caregiver, and ordering medications, tests, or procedures. Shorty Teresa MD documented in this encounterOhiohealth Hardin Memorial Hospital01-05-2023 History of Present illness Narrative* [...] DEVICE 04/21/2010 Performed by THI ALCOCER at [facility] LAPS RPR PARAESPHGL HRNA INCL FUNDPLSTY W/O MESH 04/21/2010 Performed by THI ALCOCER at [facility] MAL LESION FACE,EAR,EYEL 1.1-2CM 01/28/06 Left cheek and right forearm lesions PAST SURGICAL HISTORY OF July 06, 2009 Hysteroscopy D&C PAST SURGICAL HISTORY OF 10/2017 vaginal vault suspension PAST SURGICAL HISTORY OF 10/2017 Lap band removed UNLIS LAPAROSCOPIC PROCEDURE LIVER 04/21/2010 [facility]: Current Outpatient Medications Medication Sig gabapentin [...] naloxone 4 mg/actuation nasal spray (NARCAN) 1 [place] by nasal (alternating) route as needed for [...] 788.41, ICD10: R35.0 - UA positive for myke esterase and hematuria - UA DIP, URINE (POC) - URINE CULTURE - CEPHALEXIN 500 MG CAPSULE Donnell Braden MD documented in this encounterOhiohealth Hardin Memorial Hospital12-19-2022 History of Present illness Narrative* Elly Bruno PA-C - 07/09/2022 6:46 PM EST This note was created using InhibOxriter. Subjective Janay Frederick is a 72 year [...] naloxone 4 mg/actuation nasal spray (NARCAN) 1 [place] by nasal (alternating) route as needed for [...] DEVICE 04/21/2010 Performed by THI ALCOCER at [facility] LAPS RPR PARAESPHGL HRNA INCL FUNDPLSTY W/O MESH 04/21/2010 Performed by THI ALCOCER at [facility] MAL LESION FACE,EAR,EYEL 1.1-2CM 01/28/06 Left cheek and right forearm lesions PAST SURGICAL HISTORY OF July 06, 2009 Hysteroscopy D&C PAST SURGICAL HISTORY OF 10/2017 vaginal vault suspension PAST SURGICAL HISTORY OF 10/2017 Lap band removed UNLIS LAPAROSCOPIC PROCEDURE LIVER 04/21/2010 Performed by THI ALCOCER at [facility] FAMILY HISTORY Problem Relation Age of [...] ICD10: N39.0 acute - UA positive for myke esterase, hematuria, proteinuria, and nitrates - Send urine for culture - Begin treatment with keflex for 7 days - UA DIP, URINE (POC) - URINE CULTURE Elly Bruno PA-C documented in this encounterOhiohealth Hardin Memorial Hospital12-06-2022 Miscellaneous Notes* Telephone Encounter - [...] patient. Mickie Babcock Pss documented in this encounterOhiohealth Hardin Memorial Hospital11-10-2022 Miscellaneous Notes* Telephone Encounter - [...] vomiting, and nausea. Protocols used: Influenza - [id number] documented in this encounterOhiohealth Hardin Memorial Hospital10-07-2022 Miscellaneous Notes* Letter - Mammography Coordinator - 04/27/2022 12:32 PM EDT April 27, 2022 PID: [id number] Janay Frederick [address] [place] [address] Dear Ms. Frederick, We are pleased to [...] report will be kept on [facility] at [facility] as part of your permanent medical record and are available for your continuing care. Thank you for allowing us to help in meeting your health care needs. Sincerely, Dr. Babin Interpreting Radiologist [facility] (Normal over 40) documented in this encounterOhiohealth Hardin Memorial Hospital10-06-2022 History of Present illness Narrative* Dora Wu, RT(R) - 04/26/2022 2:30 PM EDT Radiology Service [...] 26, 2022 3:10 PM documented in this encounterOhiohealth Hardin Memorial Hospital09-30-2022 Miscellaneous Notes* Telephone Encounter - [...] this is lab error. documented in this encounterOhiohealth Hardin Memorial Hospital09-28-2022 Miscellaneous Notes* Telephone Encounter - Tarsha Hernández RN - 04/18/2022 11:49 AM EDT Patient calls and is asking if prescription can be sent to [facility]. Please review and advise, Tarsha Hernández RN documented in this encounterOhiohealth Hardin Memorial Hospital09-13-2022 Miscellaneous Notes* Telephone Encounter - [...] send this RX to her pharmacy, [facility] in [place]. documented in this encounterOhiohealth Hardin Memorial Hospital09-07-2022 Miscellaneous Notes* Telephone Encounter - Marlene Loaiza LPN - 03/28/2022 8:35 AM EDT Paperwork faxed to [facility] at . Marlene Loaiza LPN * Telephone Encounter - Kassandra Sharma APRN.CNP - 03/28/2022 7:42 AM EDT Please fax paperwork back to [facility]. Kassandra Sharma APRN.CNP * Telephone Encounter - Marlene Loaiza LPN - 03/27/2022 9:58 AM EDT Patient notified of message below. States she will try the medication they're recommending. Please send to [facility] Arellano. Marlene Loaiza LPN * Telephone Encounter - Kassandra Sharma APRN.CNP - 03/27/2022 9:46 AM EDT Please call patient and let her know [facility] has sent request over to change Oxybutynin for Detrol ER due to patient was having trouble cutting tablets in half and dry mouth. Does she want me to change this. Kassandra Sharma APRN.CNP documented in this encounterOhiohealth Hardin Memorial Hospital08-28-2022 Miscellaneous Notes* Telephone Encounter - [...] pharmacy. No need to notify patient. Petra Riojas documented in this encounterOhiohealth Hardin Memorial Hospital07-21-2022 Miscellaneous Notes* Telephone Encounter - [...] levels in 2-3 months. documented in this encounterOhiohealth Hardin Memorial Hospital07-15-2022 History of Past illness Narrative* Problem Noted Date Diagnosed Date Resolved Date Insomnia 02/02/2022 01/31/2023 Preop testing 10/11/2017 06/26/2018 Overview: Added automatically from request for surgery [id number] Dysphagia 07/09/2017 10/24/2018 Gastric band slippage 07/09/20172017 [...] of this encounter (statuses as of 01/31/2023) [facility] History of Past illness Narrative* Problem Noted Date Diagnosed Date Resolved Date Insomnia 02/02/2022 01/31/2023 Preop testing 10/11/2017 06/26/2018 Overview: Added automatically from request for surgery [id number] Dysphagia 07/09/2017 10/24/2018 Gastric band slippage 07/09/20172017 [...] of this encounter (statuses as of 02/01/2023) [facility] of Past illness Narrative* Problem Noted Date Diagnosed Date Resolved Date Insomnia 02/02/2022 01/31/2023 Preop testing 10/11/2017 06/26/2018 Overview: Added automatically from request for surgery [id number] Dysphagia 07/09/2017 10/24/2018 Gastric band slippage 07/09/20172017 [...] of this encounter (statuses as of 02/01/2023) [facility] of Past illness Narrative* Problem Noted Date Diagnosed Date Resolved Date Insomnia 02/02/2022 01/31/2023 Preop testing 10/11/2017 06/26/2018 Overview: Added automatically from request for surgery [id number] Dysphagia 07/09/2017 10/24/2018 Gastric band slippage 07/09/20172017 [...] of this encounter (statuses as of 02/05/2023) [facility] of Past illness Narrative* Problem Noted Date Diagnosed Date Resolved Date Insomnia 02/02/2022 01/31/2023 Preop testing 10/11/2017 06/26/2018 Overview: Added automatically from request for surgery [id number] Dysphagia 07/09/2017 10/24/2018 Gastric band slippage 07/09/20172017 [...] of this encounter (statuses as of 02/27/2023) [facility] of Past illness Narrative* Problem Noted Date Diagnosed Date Resolved Date Insomnia 02/02/2022 01/31/2023 Preop testing 10/11/2017 06/26/2018 Overview: Added automatically from request for surgery [id number] Dysphagia 07/09/2017 10/24/2018 Gastric band slippage 07/09/20172017 [...] of this encounter (statuses as of 03/28/2023) [facility] of Past illness Narrative* Problem Noted Date Diagnosed Date Resolved Date Insomnia 02/02/2022 01/31/2023 Preop testing 10/11/2017 06/26/2018 Overview: Added automatically from request for surgery [id number] Dysphagia 07/09/2017 10/24/2018 Gastric band slippage 07/09/20172017 [...] of this encounter (statuses as of 2023) [facility] of Past illness Narrative* Problem Noted Date Diagnosed Date Resolved Date Insomnia 02/02/2022 01/31/2023 Preop testing 10/11/2017 06/26/2018 Overview: Added automatically from request for surgery [id number] Dysphagia 07/09/2017 10/24/2018 Gastric band slippage 07/09/20172017 [...] of this encounter (statuses as of 04/12/2023) [facility] of Past illness Narrative* Problem Noted Date Diagnosed Date Resolved Date Insomnia 02/02/2022 01/31/2023 Preop testing 10/11/2017 06/26/2018 Overview: Added automatically from request for surgery [id number] Dysphagia 07/09/2017 10/24/2018 Gastric band slippage 07/09/20172017 [...] of this encounter (statuses as of 05/21/2023) [facility] of Past illness Narrative* Problem Noted Date Diagnosed Date Resolved Date Insomnia 02/02/2022 01/31/2023 Preop testing 10/11/2017 06/26/2018 Overview: Added automatically from request for surgery [id number] Dysphagia 07/09/2017 10/24/2018 Gastric band slippage 07/09/20172017 [...] of this encounter (statuses as of 05/26/2023) [facility] of Past illness Narrative* Problem Noted Date Diagnosed Date Resolved Date Insomnia 02/02/2022 01/31/2023 Preop testing 10/11/2017 06/26/2018 Overview: Added automatically from request for surgery [id number] Dysphagia 07/09/2017 10/24/2018 Gastric band slippage 07/09/20172017 [...] of this encounter (statuses as of 05/30/2023) [facility] Miscellaneous Notes* Telephone Encounter - [...] ultrasound to further evaluate. documented in this encounterOhiohealth Hardin Memorial Hospital06-28-2022 Miscellaneous Notes* Telephone Encounter - [...] 01/15/2022 4:22 PM EDT Will send to [facility] to possibly help assist with this. [...] any chance? Thank you. documented in this encounterOhiohealth Hardin Memorial Hospital06-08-2022 Miscellaneous Notes* Telephone Encounter - [...] calling: self Call patient at: on cell [phone] (home) [phone] (cell) Was an appointment scheduled: No Closing statement: Results or non-symptom based questions: Thank you for calling [facility], your call will be returned within the next business day. Carmel Cheng Pss documented in this encounterOhiohealth Hardin Memorial Hospital06-06-2022 Miscellaneous Notes* Telephone Encounter - Kassandra Sharma APRN.CNP - 12/25/2021 1:32 PM EDT PDMP website checked and validated. All prescriptions have been APPROPRIATELY filled. No suspiciousactivity was identified. 12/25/2021 by Kassandra Sharma APRN.LENA * Telephone Encounter - Chelsea Toro Pss - 12/25/2021 11:34 AM EDT Patient just wanted to let Dr. Teresa to know that she is NOT using pain patches as she does not want any opiates in her system. Patient would also like a new prescription for Compression socks as well. If you can contact patient [phone]. Patient has been identified by name and [...] patient. Chelsea Toro Pss documented in this encounterOhiohealth Hardin Memorial Hospital05-17-2022 History of Present illness Narrative* Shorty Teresa MD - 12/05/2021 7:02 PM EDT Chief Complaint Patient presents with: ER F/U: 12/02/21 HPI Janay Frederick is a 71 year old female who presents here today for ER Follow Up.. Patient evaluated at [facility] ED on 12/02 for complaint of [...] should replace it once per week. Taking Suring 3 times per day as well. Does [...] DEVICE 04/21/2010 Performed by THI ALCOCER at [facility] LAPS RPR PARAESPHGL HRNA INCL FUNDPLSTY W/O MESH 04/21/2010 Performed by THI ALCOCER at [facility] MAL LESION FACE,EAR,EYEL 1.1-2CM 01/28/06 Left cheek and right forearm lesions PAST SURGICAL HISTORY OF July 06, 2009 Hysteroscopy D&C PAST SURGICAL HISTORY OF 10/2017 vaginal vault suspension PAST SURGICAL HISTORY OF 10/2017 Lap band removed UNLIS LAPAROSCOPIC PROCEDURE LIVER 04/21/2010 Performed by THI ALCOCER at [facility] Family History FAMILY HISTORY Problem Relation [...] SPRAY Shorty Teresa MD documented in this encounterOhiohealth Hardin [facility] Hospital10-18-2021 History of Present illness Narrative* Pastora Bell, RT(R) - 05/08/2021 5:30 PM EDT Radiology Service Progress Note PATIENT NAME: Janay Frederick DATE OF SERVICE: May 08, 2021 TIME: 5:36 PM PATIENT IDENTITY VERIFICATION COMPLETED USING TWO [...] Yes RADIOLOGY DEPARTMENT: General X-ray: Exam(s) Completed: Upper Extremity X- Ray(s): Hand, right PERIPHERAL IV DATA: Not applicable SIGNED BY: RT Debbi(R) May 08, 2021 5:36 PM documented in this encounterOhiohealth Hardin Memorial Hospital09-29-2021 History of Present illness Narrative* Idalia Steve RT(R) - 04/19/2021 4:00 PM EDT Radiology Service Progress Note PATIENT NAME: Janay Frederick DATE OF SERVICE: April 19, 2021 TIME: 3:53 PM PATIENT IDENTITY VERIFICATION COMPLETED USING TWO [...] Applicable RADIOLOGY DEPARTMENT: General X-ray: Exam(s) Completed: Chest X-Ray PERIPHERAL IV DATA: Not applicable SIGNED BY: RT Samuel(R) April 19, 2021 3:53 PM documented in this encounterOhiohealth Hardin [facility] Hospital03-23-2018 History of Past illness Narrative* Problem Noted Date Resolved Date Preop testing 10/11/2017 06/26/2018 Overview: Added automatically from request for surgery [id number] Dysphagia 07/09/2017 10/24/2018 Gastric band slippage 07/09/2017 [...] of this encounter (statuses as of 12/06/2021) [facility] of Past illness Narrative* Problem Noted Date Resolved Date Preop testing 10/11/2017 06/26/2018 Overview: Added automatically from request for surgery [id number] Dysphagia 07/09/2017 10/24/2018 Gastric band slippage 07/09/2017 [...] of this encounter (statuses as of 12/25/2021) [facility] of Past illness Narrative* Problem Noted Date Resolved Date Preop testing 10/11/2017 06/26/2018 Overview: Added automatically from request for surgery [id number] Dysphagia 07/09/2017 10/24/2018 Gastric band slippage 07/09/2017 [...] of this encounter (statuses as of 12/27/2021) [facility] of [facility] illness Narrative* Problem Noted Date Resolved Date Preop testing 10/11/2017 06/26/2018 Overview: Added automatically from request for surgery [id number] Dysphagia 07/09/2017 10/24/2018 Gastric band slippage 07/09/2017 [...] of this encounter (statuses as of 01/24/2022) [facility] of [facility] illness Narrative* Problem Noted Date Resolved Date Preop testing 10/11/2017 06/26/2018 Overview: Added automatically from request for surgery [id number] Dysphagia 07/09/2017 10/24/2018 Gastric band slippage 07/09/2017 [...] of this encounter (statuses as of 02/08/2022) [place] [address]-23-2018 History of Past illness Narrative* Problem Noted Date Resolved Date Preop testing 10/11/2017 06/26/2018 Overview: Added automatically from request for surgery [id number] Dysphagia 07/09/2017 10/24/2018 Gastric band slippage 07/09/2017 [...] of this encounter (statuses as of 02/08/2022) [facility] of [facility] illness Narrative* Problem Noted Date Resolved Date Preop testing 10/11/2017 06/26/2018 Overview: Added automatically from request for surgery [id number] Dysphagia 07/09/2017 10/24/2018 Gastric band slippage 07/09/2017 [...] of this encounter (statuses as of 03/18/2022) [facility] of [facility] Narrative* Problem Noted Date Resolved Date Preop testing 10/11/2017 06/26/2018 Overview: Added automatically from request for surgery [id number] Dysphagia 07/09/2017 10/24/2018 Gastric band slippage 07/09/2017 [...] of this encounter (statuses as of 03/28/2022) [facility] of [facility] illness Narrative* Problem Noted Date Resolved Date Preop testing 10/11/2017 06/26/2018 Overview: Added automatically from request for surgery [id number] Dysphagia 07/09/2017 10/24/2018 Gastric band slippage 07/09/2017 [...] of this encounter (statuses as of 04/03/2022) [facility] of [facility] Narrative* Problem Noted Date Resolved Date Preop testing 10/11/2017 06/26/2018 Overview: Added automatically from request for surgery [id number] Dysphagia 07/09/2017 10/24/2018 Gastric band slippage 07/09/2017 [...] of this encounter (statuses as of 04/18/2022) [facility] of [facility] illness Narrative* Problem Noted Date Resolved Date Preop testing 10/11/2017 06/26/2018 Overview: Added automatically from request for surgery [id number] Dysphagia 07/09/2017 10/24/2018 Gastric band slippage 07/09/2017 [...] of this encounter (statuses as of 04/20/2022) [facility] Narrative* Problem Noted Date Resolved Date Preop testing 10/11/2017 06/26/2018 Overview: Added automatically from request for surgery [id number] Dysphagia 07/09/2017 10/24/2018 Gastric band slippage 07/09/2017 [...] of this encounter (statuses as of 04/24/2022) [facility] of [facility] illness Narrative* Problem Noted Date Resolved Date Preop testing 10/11/2017 06/26/2018 Overview: Added automatically from request for surgery [id number] Dysphagia 07/09/2017 10/24/2018 Gastric band slippage 07/09/2017 [...] of this encounter (statuses as of 04/27/2022) [facility] Narrative* Problem Noted Date Resolved Date Preop testing 10/11/2017 06/26/2018 Overview: Added automatically from request for surgery [id number] Dysphagia 07/09/2017 10/24/2018 Gastric band slippage 07/09/2017 [...] of this encounter (statuses as of 05/01/2022) [facility]-2018 History of Past illness Narrative* Problem Noted Date Resolved Date Preop testing 10/11/2017 06/26/2018 Overview: Added automatically from request for surgery [id number] Dysphagia 07/09/2017 10/24/2018 Gastric band slippage 07/09/2017 [...] of this encounter (statuses as of 05/31/2022) [facility]2018 History of Past illness Narrative* Problem Noted Date Resolved Date Preop testing 10/11/2017 06/26/2018 Overview: Added automatically from request for surgery [id number] Dysphagia 07/09/2017 10/24/2018 Gastric band slippage 07/09/2017 [...] of this encounter (statuses as of 06/26/2022) [facility]2018 History of Past illness Narrative* Problem Noted Date Resolved Date Preop testing 10/11/2017 06/26/2018 Overview: Added automatically from request for surgery [id number] Dysphagia 07/09/2017 10/24/2018 Gastric band slippage 07/09/2017 [...] of this encounter (statuses as of 07/09/2022) [facility]2018 History of Past illness Narrative* Problem Noted Date Resolved Date Preop testing 10/11/2017 06/26/2018 Overview: Added automatically from request for surgery [id number] Dysphagia 07/09/2017 10/24/2018 Gastric band slippage 07/09/2017 [...] of this encounter (statuses as of 07/10/2022) [facility]2018 History of Past illness Narrative* Problem Noted Date Resolved Date Preop testing 10/11/2017 06/26/2018 Overview: Added automatically from request for surgery [id number] Dysphagia 07/09/2017 10/24/2018 Gastric band slippage 07/09/2017 [...] of this encounter (statuses as of 07/27/2022) [facility] History of Past illness Narrative* Problem Noted Date Resolved Date Preop testing 10/11/2017 06/26/2018 Overview: Added automatically from request for surgery [id number] Dysphagia 07/09/2017 10/24/2018 Gastric band slippage 07/09/2017 [...] of this encounter (statuses as of 08/14/2022) [facility]2018 History of Past illness Narrative* Problem Noted Date Resolved Date Preop testing 10/11/2017 06/26/2018 Overview: Added automatically from request for surgery [id number] Dysphagia 07/09/2017 10/24/2018 Gastric band slippage 07/09/2017 [...] of this encounter (statuses as of 08/14/2022) [facility] History of Past illness Narrative* Problem Noted Date Resolved Date Preop testing 10/11/2017 06/26/2018 Overview: Added automatically from request for surgery [id number] Dysphagia 07/09/2017 10/24/2018 Gastric band slippage 07/09/2017 [...] of this encounter (statuses as of 08/15/2022) [facility] History of Past illness Narrative* Problem Noted Date Resolved Date Preop testing 10/11/2017 06/26/2018 Overview: Added automatically from request for surgery [id number] Dysphagia 07/09/2017 10/24/2018 Gastric band slippage 07/09/2017 [...] of this encounter (statuses as of 08/21/2022) [facility] History of Past illness Narrative* Problem Noted Date Resolved Date Preop testing 10/11/2017 06/26/2018 Overview: Added automatically from request for surgery [id number] Dysphagia 07/09/2017 10/24/2018 Gastric band slippage 07/09/2017 [...] of this encounter (statuses as of 08/21/2022) [facility] History of Past illness Narrative* Problem Noted Date Resolved Date Preop testing 10/11/2017 06/26/2018 Overview: Added automatically from request for surgery [id number] Dysphagia 07/09/2017 10/24/2018 Gastric band slippage 07/09/2017 [...] of this encounter (statuses as of 09/12/2022) [facility] History of Past illness Narrative* Problem Noted Date Resolved Date Preop testing 10/11/2017 06/26/2018 Overview: Added automatically from request for surgery [id number] Dysphagia 07/09/2017 10/24/2018 Gastric band slippage 07/09/2017 [...] of this encounter (statuses as of 09/13/2022) [facility] History of Past illness Narrative* Problem Noted Date Resolved Date Preop testing 10/11/2017 06/26/2018 Overview: Added automatically from request for surgery [id number] Dysphagia 07/09/2017 10/24/2018 Gastric band slippage 07/09/2017 [...] of this encounter (statuses as of 09/13/2022) [facility] History of Past illness Narrative* Problem Noted Date Resolved Date Preop testing 10/11/2017 06/26/2018 Overview: Added automatically from request for surgery [id number] Dysphagia 07/09/2017 10/24/2018 Gastric band slippage 07/09/2017 [...] of this encounter (statuses as of 09/13/2022) [facility] History of Past illness Narrative* Problem Noted Date Resolved Date Preop testing 10/11/2017 06/26/2018 Overview: Added automatically from request for surgery [id number] Dysphagia 07/09/2017 10/24/2018 Gastric band slippage 07/09/2017 [...] of this encounter (statuses as of 09/13/2022) [facility] History of Past illness Narrative* Problem Noted Date Resolved Date Preop testing 10/11/2017 06/26/2018 Overview: Added automatically from request for surgery [id number] Dysphagia 07/09/2017 10/24/2018 Gastric band slippage 07/09/2017 [...] of this encounter (statuses as of 09/13/2022) [facility] History of Past illness Narrative* Problem Noted Date Resolved Date Preop testing 10/11/2017 06/26/2018 Overview: Added automatically from request for surgery [id number] Dysphagia 07/09/2017 10/24/2018 Gastric band slippage 07/09/2017 [...] of this encounter (statuses as of 09/21/2022) [facility] History of Past illness Narrative* Problem Noted Date Resolved Date Preop testing 10/11/2017 06/26/2018 Overview: Added automatically from request for surgery [id number] Dysphagia 07/09/2017 10/24/2018 Gastric band slippage 07/09/2017 [...] of this encounter (statuses as of 09/24/2022) [facility] History of Past illness Narrative* Problem Noted Date Resolved Date Preop testing 10/11/2017 06/26/2018 Overview: Added automatically from request for surgery [id number] Dysphagia 07/09/2017 10/24/2018 Gastric band slippage 07/09/2017 [...] of this encounter (statuses as of 10/22/2022) [facility] History of Past illness Narrative* Problem Noted Date Resolved Date Preop testing 10/11/2017 06/26/2018 Overview: Added automatically from request for surgery [id number] Dysphagia 07/09/2017 10/24/2018 Gastric band slippage 07/09/2017 [...] of this encounter (statuses as of 11/14/2022) [facility] History of Past illness Narrative* Problem Noted Date Resolved Date Preop testing 10/11/2017 06/26/2018 Overview: Added automatically from request for surgery [id number] Dysphagia 07/09/2017 10/24/2018 Gastric band slippage 07/09/2017 [...] of this encounter (statuses as of 11/15/2022) [facility]2018 History of Past illness Narrative* Problem Noted Date Resolved Date Preop testing 10/11/2017 06/26/2018 Overview: Added automatically from request for surgery [id number] Dysphagia 07/09/2017 10/24/2018 Gastric band slippage 07/09/2017 [...] of this encounter (statuses as of 11/15/2022) [facility]2018 History of Past illness Narrative* Problem Noted Date Resolved Date Preop testing 10/11/2017 06/26/2018 Overview: Added automatically from request for surgery [id number] Dysphagia 07/09/2017 10/24/2018 Gastric band slippage 07/09/2017 [...] of this encounter (statuses as of 11/21/2022) [facility] History of Past illness Narrative* Problem Noted Date Resolved Date Preop testing 10/11/2017 06/26/2018 Overview: Added automatically from request for surgery [id number] Dysphagia 07/09/2017 10/24/2018 Gastric band slippage 07/09/2017 [...] of this encounter (statuses as of 11/26/2022) [facility] History of Past illness Narrative* Problem Noted Date Resolved Date Preop testing 10/11/2017 06/26/2018 Overview: Added automatically from request for surgery [id number] Dysphagia 07/09/2017 10/24/2018 Gastric band slippage 07/09/2017 [...] of this encounter (statuses as of 11/28/2022) [facility] History of Past illness Narrative* Problem Noted Date Resolved Date Preop testing 10/11/2017 06/26/2018 Overview: Added automatically from request for surgery [id number] Dysphagia 07/09/2017 10/24/2018 Gastric band slippage 07/09/2017 [...] of this encounter (statuses as of 11/29/2022) [facility] History of Past illness Narrative* Problem Noted Date Resolved Date Preop testing 10/11/2017 06/26/2018 Overview: Added automatically from request for surgery [id number] Dysphagia 07/09/2017 10/24/2018 Gastric band slippage 07/09/2017 [...] of this encounter (statuses as of 12/03/2022) [facility] History of Past illness Narrative* Problem Noted Date Resolved Date Preop testing 10/11/2017 06/26/2018 Overview: Added automatically from request for surgery [id number] Dysphagia 07/09/2017 10/24/2018 Gastric band slippage 07/09/2017 [...] of this encounter (statuses as of 12/20/2022) [facility] History of Past illness Narrative* Problem Noted Date Resolved Date Preop testing 10/11/2017 06/26/2018 Overview: Added automatically from request for surgery [id number] Dysphagia 07/09/2017 10/24/2018 Gastric band slippage 07/09/2017 [...] of this encounter (statuses as of 01/04/2023) [facility] [place] [facility] Diagnosis Acute cystitis without hematuria- Primary Acute cystitis Dizziness Dizziness and giddiness Fatigue, unspecified type Hypokalemia Hypopotassemia Opioid use [facility] [place] [facility] Diagnosis Lower extremity edema- Primary Edema Venous incompetence Unspecified venous (peripheral) insufficiency [facility] [place] [facility] Diagnosis Elevated alkaline phosphatase level Other nonspecific abnormal serum enzyme levels Elevated LFTs Other abnormal blood chemistry [facility] [place] [facility] Diagnosis Elevated alkaline phosphatase level- Primary Other nonspecific abnormal serum enzyme levels Elevated LFTs Other abnormal blood chemistry documented in this encounter [facility] note* Diagnosis Gastroesophageal reflux disease, unspecified whether esophagitis present Esophageal dysphagia Dysphagia, pharyngoesophageal phase documented in this encounter [facility] note* Diagnosis Hypokalemia- Primary Hypopotassemia documented in this encounter [facility] note* Diagnosis Elevated LFTs- Primary Other abnormal blood chemistry Elevated alkaline phosphatase level Other nonspecific abnormal serum enzyme levels Screening mammogram for breast cancer documented in this encounter [facility] note* Diagnosis Screening mammogram for breast cancer documented in this encounter [facility] note* Diagnosis Acute UTI- Primary Urinary tract infection, site not specified documented in this encounter [facility] note* Diagnosis Urinary frequency- Primary documented in this encounter [facility] note* Diagnosis Left leg swelling- Primary Swelling [...] affecting unspecified side documented in this encounter [facility] note* Diagnosis Urinary tract infection without hematuria, site unspecified- Primary Atrophic vaginitis Postmenopausal atrophic vaginitis documented in this encounter [facility] note* Diagnosis Osteoporosis without current pathological fracture, unspecified osteoporosis type [M81.0 (ICD-10-CM)]- Primary Hyperparathyroidism (HCC) Hyperparathyroidism, unspecified documented in this encounter [facility] note* Diagnosis Hyperparathyroidism (HCC)- Primary Hyperparathyroidism, unspecified documented in this encounter [facility] note* Diagnosis Osteopenia, unspecified location documented in this encounter [facility] note* Diagnosis Other osteoporosis, unspecified pathological fracture presence- Primary documented in this encounter [facility] note* Diagnosis Hyperparathyroidism (HCC)- Primary Hyperparathyroidism, unspecified documented in this encounter [facility] note* Diagnosis Skin tear of left lower leg without complication, initial encounter- Primary Bilateral lower extremity edema Edema documented in this encounter [facility] note* Diagnosis Pain in both knees, unspecified chronicity- Primary [facility] [place] [facility]* Diagnosis Primary hyperparathyroidism (HCC)- Primary Primary hyperparathyroidism documented in this encounter [facility] note* Diagnosis Hyperparathyroidism (HCC) Hyperparathyroidism, unspecified documented in this encounter [facility] note* Diagnosis Primary hyperparathyroidism (HCC)- Primary Primary hyperparathyroidism Hypercalcemia Hyperparathyroidism (HCC) Hyperparathyroidism, unspecified Primary hyperparathyroidism (HCC) Primary hyperparathyroidism documented in this encounter [facility] note* Diagnosis Primary osteoarthritis of right knee- Primary Primary localized osteoarthrosis, lower leg Primary hyperparathyroidism (HCC) Primary hyperparathyroidism documented in this encounter [facility] note* Diagnosis Pre-op evaluation- Primary Preoperative examination, [...] (HCC) Primary hyperparathyroidism [facility] [place] [facility] Diagnosis Primary hyperparathyroidism (HCC) Primary hyperparathyroidism Hypercalcemia Primary hyperparathyroidism (HCC) Primary hyperparathyroidism documented [facility] [place] [facility]* Diagnosis Hyperparathyroidism (HCC)- Primary Hyperparathyroidism, unspecified Primary hyperparathyroidism (HCC) Primary hyperparathyroidism documented in this encounter [facility] [place] [facility]* Diagnosis Osteopenia, unspecified location- Primary documented in this encounter [facility] [place] [facility]* Diagnosis Mixed hyperlipidemia [facility] [place] [facility]* Diagnosis Screening mammogram for breast cancer- Primary documented in this encounter [facility] note* Diagnosis Screening mammogram for breast cancer documented in this encounter [facility] [place] [facility]* Diagnosis Hyperparathyroidism (HCC)- Primary Hyperparathyroidism, unspecified Osteoporosis without current pathological fracture, unspecified osteoporosis type documented in this encounter [facility] [place] [facility]* Diagnosis Mixed hyperlipidemia- Primary Immunization due [...] (HCC) Morbid obesity documented in this encounter [facility] [place] [facility]* Diagnosis Leg swelling Swelling of limb documented in this encounter [facility] [place] [facility]* Diagnosis Medicare annual wellness visit, subsequent- Primary Routine general medical examination at a [facility] facility Osteopenia, unspecified location Unsteady gait when walking At high risk for falls Personal history of fall Encounter for immunization Need for other specified prophylactic vaccination against single bacterial disease Decreased visual acuity Unspecified visual loss documented [facility] this [facility] [place] [facility]* Diagnosis Primary osteoarthritis of right knee- Primary Primary localized osteoarthrosis, lower leg documented in this encounter [facility] [place] [facility]* Diagnosis Hyperparathyroidism (HCC) Hyperparathyroidism, unspecified Osteoporosis without current pathological fracture, unspecified osteoporosis type documented in this encounter [facility] [place] [facility]* Diagnosis Pre-op evaluation- Primary Preoperative examination, [...] hyperlipidemia Venous incompetence Unspecified venous (peripheral) insufficiency Mixed hyperlipidemia [facility] [place] [facility] Diagnosis Pre-op evaluation- Primary Preoperative examination, [...] hyperlipidemia Venous incompetence Unspecified venous (peripheral) insufficiency Suspected COVID-19 virus infection documented [facility] this encounter [facility] [place] [facility]* Diagnosis Pre-op evaluation- Primary Preoperative examination, [...] hyperlipidemia Venous incompetence Unspecified venous (peripheral) insufficiency Leg swelling- Primary Swelling of limb Venous incompetence Unspecified venous (peripheral) insufficiency documented in this encounter [facility] [place] [facility]* Diagnosis Pain in both knees, unspecified chronicity Pre-op evaluation- Primary Preoperative examination, unspecified Obesity, [...] hyperlipidemia Venous incompetence Unspecified venous (peripheral) insufficiency documented in this encounter [facility] note* Diagnosis Pre-op evaluation- Primary Preoperative examination, [...] hyperlipidemia Venous incompetence Unspecified venous (peripheral) insufficiency Mixed hyperlipidemia- Primary Encounter for immunization Need for other specified prophylactic vaccination against single bacterial disease Venous incompetence Unspecified venous (peripheral) insufficiency Left spastic hemiparesis (HCC) Spastic hemiplegia affecting unspecified side Hyperparathyroidism (HCC) Hyperparathyroidism, unspecified Obesity, Class II, BMI 35-39.9 Obesity, unspecified OAB (overactive bladder) Hypertonicity of bladder Gastroesophageal reflux disease, unspecified whether esophagitis present Migraine without aura and without status migrainosus, not intractable Migraine without aura, without mention of intractable migraine without mention of status migrainosus Other osteoporosis, unspecified pathological fracture presence [facility] [place] [facility] Diagnosis Right hand pain Pain in limb Pre-op evaluation- Primary Preoperative examination, unspecified Obesity, [...] hyperlipidemia Venous incompetence Unspecified venous (peripheral) insufficiency [facility] [place] [facility]* Diagnosis Dry cough Cough Pre-op evaluation- Primary Preoperative examination, unspecified Obesity, [...] hyperlipidemia Venous incompetence Unspecified venous (peripheral) insufficiency [facility] [place] [facility] Diagnosis Pre-op evaluation- Primary Preoperative examination, [...] hyperlipidemia Venous incompetence Unspecified venous (peripheral) insufficiency Screening mammogram for breast cancer- Primary [facility] [place] [facility]* Diagnosis Pre-op evaluation- Primary Preoperative examination, [...] hyperlipidemia Venous incompetence Unspecified venous (peripheral) insufficiency Osteoporosis without current pathological fracture, unspecified osteoporosis type- Primary Hyperparathyroidism (HCC) Hyperparathyroidism, unspecified documented in this encounter [facility] for referral (narrative)* Diagnostic Procedure Only (Routine) - Closed Specialty Diagnoses / Procedures Referred By Contac t Referred To Contact US IMAGING Diagnoses Elevated alkaline phosphatase level Elevated LFTs Procedures US ABD RT UPPER QUADRANT US ABDOMINAL REAL TIME W/IMAGE LIMITED Shorty Teresa MD [address] [place] [address] Us Imaging Referral ID Status Reason Start Date Expiration Date V isits Requested Visits Authorized [id number] Closed Auto-Generated Referral Patient Cleared - INN Insurance Found 02/02/2022 07/21/2022 1 1 [facility] for referral (narrative)* Diagnostic Procedure Only (Routine) - Closed Specialty Diagnoses / Procedures [facility] To Contact [facility] Diagnoses Elevated alkaline phosphatase level Elevated LFTs Procedures US ABD RT UPPER QUADRANT US ABDOMINAL REAL TIME W/IMAGE LIMITED Shorty Teresa MD [address] [place] [id number] Us Imaging Referral ID Status Reason Start Date Expiration Date V isits Requested Visits Authorized [id number] Closed Auto-Generated Referral Patient Cleared - INN Insurance Found 02/02/2022 07/21/2022 1 1 [facility] for referral (narrative)* Diagnostic Procedure Only (Routine) - Closed Specialty Diagnoses / Procedures Referred By Contac t Referred To Contact BR IMAGING Diagnoses Screening mammogram for breast cancer Procedures CRISTINA SCREENING SCREENING MAMMOGRAPHY BI 2-VIEW BREAST INC CAD Shorty Teresa MD [address] [place] [id number] [facility] [address] [place] [address] Referral ID Status Reason Start Date Expiration Date V isits Requested Visits Authorized [id number] Closed Auto-Generate d Referral 02/08/2022 03/10/2023 1 1 [facility] for referral (narrative)* Outpatient Procedure (Urgent) - Pending Review Specialty Diagnoses / Procedures Referred By Contac t Referred To Contact [facility] Diagnoses Left leg swelling Procedures US LEG VEIN DVT UNL VAS LAB DUP-SCAN XTR VEINS UNILATERAL/LIMITED STUDY Shorty Teersa MD [address] [place] [address] [facility] [place][Note 2] Vascular [address] [address] Referral ID Status Reason Start Date Expiration Date Visits Requested Visits Authorized [id number] Pending Review Auto-Generat ed Referral 08/13/2022 08/13/2023 1 1 [facility] for referral (narrative)* Diagnostic Procedure Only (Routine) - Pending Review Specialty Diagnoses / Procedures Referred By Contac t Referred To Contact XR IMAGING Diagnoses Pain in both knees, unspecified chronicity Procedures XR KNEE POST OP 3V AP/LAT/MERCHANT BILATERAL RADIOLOGIC EXAMINATION KNEE 3 VIEWS John Desai PA-C [address] [place] [address] Xr Imaging Referral ID Status Reason Start Date Expiration Date Visits Requested Visits Authorized [id number] Pending Review Auto-Generat ed Referral 11/14/2022 12/14/2023 1 1 [facility] for referral (narrative)* Diagnostic Procedure Only (Routine) - Closed Specialty Diagnoses / Procedures Referred By Contact Referred To Contact MOLECULAR & FUNCTIONAL IMAGING Diagnoses Primary hyperparathyroidism (HCC) Hypercalcemia Procedures NM PARATHYROID W SPECT/CT PARATHYROID IMAGING W/TOMOGRAPHIC SPECT & CT Leydi Vance MD [address] [place] [address] Molecular & Functional Imaging [address] [place] [address] Referral ID Status Reason Start Date Expiration Date V isits Requested Visits Authorized [id number] Closed Auto-Generate d Referral 12/03/2022 01/02/2024 1 1 [facility] [facility] Diagnostic Procedure Only (Routine) - Authorized Specialty Diagnoses / Procedures Referred By Contac t Referred To Contact BR IMAGING Diagnoses Screening mammogram for breast cancer Procedures CRISTINA SCREENING SCREENING MAMMOGRAPHY BI 2-VIEW BREAST INC Shorty Sifuentes MD [address] [place] [address] Br Imaging [address] [place] [phone] Referral ID Status Reason Start Date Expiration Date Visits Requested Visits Authorized [id number] Authorized Auto-Generat ed Referral 04/12/2023 05/11/2024 1 1 [facility] for referral (narrative)* Diagnostic Procedure Only (Routine) - Closed Specialty Diagnoses / Procedures Referred By Antione t Referred To Contact BR IMAGING Diagnoses Screening mammogram for breast cancer Procedures CRISTINA SCREENING SCREENING MAMMOGRAPHY BI 2-VIEW BREAST INC Shorty Sifuentes MD [address] [place] [address] [facility] Imaging [address] [place] [phone] Referral ID Status Reason Start Date Expiration Date V isits Requested Visits Authorized [id number] Closed Auto-Generate d Referral 04/12/2023 05/11/2024 1 1 [facility] for referral (narrative)* Diagnostic Procedure Only (Routine) - Pending Review Specialty Diagnoses / Procedures Referred By Contac t Referred To Contact XR IMAGING Diagnoses Hyperparathyroidism (HCC) Osteoporosis without current pathological fracture, unspecified osteoporosis type Procedures DXA-FOREARM SKELETON DXA BONE DENSITY STUDY /SITES APPENDICLR Hayden Carlson MD [address] [place] [address] [place] [address] Referral ID Status Reason Start Date Expiration Date Visits Requested Visits Authorized [id number] Pending Review Auto-Generat ed Referral 09/12/2023 06/27/2024 1 1 [facility] for referral (narrative)* Diagnostic Procedure Only (Routine) - Closed Specialty Diagnoses / Procedures Referred By Contac t Referred To Contact XR IMAGING Diagnoses Pain in both knees, unspecified chronicity Procedures XR KNEE POST OP 3V AP/LAT/MERCHANT BILATERAL RADIOLOGIC EXAMINATION KNEE 3 VIEWS John Desai PA-C [address] [place] [address] [place] [address] Referral ID Status Reason Start Date Expiration Date V isits Requested Visits Authorized [id number] Closed Auto-Generate d Referral 11/14/2022 12/14/2023 1 1 [facility] for referral (narrative)* Diagnostic Procedure Only (Urgent) - Closed Specialty Diagnoses / Procedures Referred By Contac t Referred To Contact XR IMAGING Diagnoses Right hand pain Procedures XR HAND GENERAL 3V PA/LAT/OBL RT X-RAY HAND MINIMUM 3 VIEWS Joan Carrasquillo APRN.[employer] [address] [place] [address] [place] [address] Referral ID Status Reason Start Date Expiration Date Visits Re quested Visits Authorized [id number] Closed 05/08/2021 07/21/2021 1 1 [facility] for referral (narrative)* Diagnostic Procedure Only (Routine) - Authorized Specialty Diagnoses / Procedures Referred By Contac t Referred To Contact BR IMAGING Diagnoses Screening mammogram for breast cancer Procedures CRISTINA SCREENING SCREENING MAMMOGRAPHY BI 2-VIEW BREAST INC CAD Iris Torres, PCT.[employer] [address] [place] [address] [facility] Imaging [address] [place] [address] Referral ID Status Reason Start Date Expiration Date Visits Requested Visits Authorized [id number] Authorized Auto-Generat ed Referral 05/30/2025 1 1 [facility] for visit Narrative* Diagnostic Procedure Only (Routine) - Closed Specialty Diagnoses / Procedures Referred By Contac t Referred To Contact US IMAGING Diagnoses Elevated alkaline phosphatase level Elevated LFTs Procedures US ABD RT UPPER QUADRANT US ABDOMINAL REAL TIME W/IMAGE LIMITED Shorty Teresa MD [address] [place] [address] Us Imaging Referral ID Status Reason Start Date Expiration Date V isits Requested Visits Authorized [id number] Closed Auto-Generated Referral Patient Cleared - INN Insurance Found 02/02/2022 07/21/2022 1 1 [facility] for visit Narrative* Diagnostic Procedure Only (Routine) - Closed Specialty Diagnoses / Procedures Referred By Antione t Referred To Contact BR IMAGING Diagnoses Screening mammogram for breast cancer Procedures CRISTINA SCREENING SCREENING MAMMOGRAPHY BI 2-VIEW BREAST INC CAD Shorty Teresa MD [address] [place] [address] [facility] Imaging [address] [place] [phone] Referral ID Status Reason Start Date Expiration Date V isits Requested Visits Authorized [id number] Closed Auto-Generate d Referral 02/08/2022 03/10/2023 1 1 [facility] for visit Narrative* Diagnostic Procedure Only (Routine) - Closed Specialty Diagnoses / Procedures Referred By Contact Referred To Contact MOLECULAR & FUNCTIONAL IMAGING Diagnoses Primary hyperparathyroidism (HCC) Hypercalcemia Procedures NM PARATHYROID W SPECT/CT PARATHYROID IMAGING W/TOMOGRAPHIC SPECT & CT Leydi Vance MD [address] [place] [address] Molecular & Functional Imaging [address] [id number] Referral ID Status Reason Start Date Expiration Date V isits Requested Visits Authorized [id number] Closed Auto-Generate d Referral 12/03/2022 01/02/2024 1 1 [facility] for visit Narrative* Diagnostic Procedure Only (Routine) - Closed Specialty Diagnoses / Procedures Referred By Contac t Referred To Contact BR IMAGING Diagnoses Screening mammogram for breast cancer Procedures CRISTINA SCREENING SCREENING MAMMOGRAPHY BI 2-VIEW BREAST INC Shorty Sifuentes MD [address] [place] [address] Br Imaging [address] [place] [address] Referral ID Status Reason Start Date Expiration Date V isits Requested Visits Authorized [id number] Closed Auto-Generate d Referral 04/12/2023 05/11/2024 1 1 [facility] for visit Narrative* Diagnostic Procedure Only (Routine) - Closed Specialty Diagnoses / Procedures Referred By Contac t Referred To Contact XR IMAGING Diagnoses Hyperparathyroidism (HCC) Osteoporosis without current pathological fracture, unspecified osteoporosis type Procedures DXA-FOREARM SKELETON DXA BONE DENSITY STUDY SITES APPENDICLR Hayden Carlson MD [address] [place] [address] [place] [address] Referral ID Status Reason Start Date Expiration Date V isits Requested Visits Authorized [id number] Closed Auto-Generate d Referral 09/12/2023 06/27/2024 1 1 [facility] for visit Narrative* Diagnostic Procedure Only (Routine) - Closed Specialty Diagnoses / Procedures Referred By Contac t Referred To Contact XR IMAGING Diagnoses Pain in both knees, unspecified chronicity Procedures XR KNEE POST OP 3V AP/LAT/MERCHANT BILATERAL RADIOLOGIC EXAMINATION KNEE 3 VIEWS John Desai PA-C [address] [place] [address] [place] [address] Referral ID Status Reason Start Date Expiration Date V isits Requested Visits Authorized [id number] Closed Auto-Generate d Referral 11/14/2022 12/14/2023 1 1 [facility] for visit Narrative* Diagnostic Procedure Only (Urgent) - Closed Specialty Diagnoses / Procedures Referred By Contac t Referred To Contact XR IMAGING Diagnoses Right hand pain Procedures XR HAND GENERAL 3V PA/LAT/OBL RT X-RAY HAND MINIMUM 3 VIEWS Joan Carrasquillo, PCT.[employer] [address] [place] [id number] [place] [address] Referral ID Status Reason Start Date Expiration Date Visits Re quested Visits Authorized [id number] Closed 05/08/2021 07/21/2021 1 [facility] Diagnostic Procedure Only (Routine) - Closed Specialty Diagnoses / Procedures Referred By Antione macias Referred To Contact Radiology / [facility] Diagnoses Cough ML Procedures RADIOLOGIC EXAM CHEST 2 VIEWS XR CHEST Shorty Teresa MD [address] [place] [address] Radio [facility] [address] [place] [address] Referral ID Status Reason Start Date Expiration Date Visits Re quested Visits Authorized [id number] Closed 04/19/2021 07/21/2021 1 1 [facility] Summary Purpose Family History No Family History Records FoundNo Family History Records FoundNo Family History Records FoundNo Family History Records Found Advance Directives No Advanced Directives Records FoundDocuments on File Type Date 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 Advance Directive(s) Advance Directive(s) 10/31/2017 2:52 PM Advance Directive(s) 07/16/2017 2:14 PM Advance Directive(s) 07/16/2017 2:15 PM Advance Directive(s) 07/12/2017 12:38 PM Advance Directive(s) 07/20/2016 12:15 PM Documents on File Type Date 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 Advance Directive(s) Advance Directive(s) 10/31/2017 2:52 PM Advance Directive(s) 07/16/2017 2:14 PM Advance Directive(s) 07/16/2017 2:15 PM Advance Directive(s) 07/12/2017 12:38 PM Advance Directive(s) 07/20/2016 12:15 PM Documents on File Type Date 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 Advance Directive(s) 07/16/2017 2:15 PM Documents on File Type Date 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 Advance Directive(s) 07/16/2017 2:15 PM Reason for Referral Specialty Diagnoses / Procedures Referred By Contac t Referred To Contact Endocrinology Diagnoses Elevated LFTs Elevated alkaline phosphatase level Procedures CONSULT TO ENDOCRINOLOGY OFFICE/OUTPATIENT [facility] 60-74 MINUTES Shorty Teresa MD [address] [place] [address] Referral ID Status Reason Start Date Expiration Date Visits Requested Visits Authorized [id number] Pending Review PCP Requested Referral 04/24/2022 02/08/2023 1 1 Specialty Diagnoses / Procedures Referred By Contac t Referred To Contact BR IMAGING Diagnoses Screening mammogram for breast cancer Procedures CRISTINA SCREENING SCREENING MAMMOGRAPHY BI 2-[place] [address] [place] [address] [facility] [address] [place] [address] Referral ID Status Reason Start Date Expiration Date Visits Requested Visits Authorized [id number] Authorized Auto-Generat ed Referral 02/08/2022 03/10/2023 1 1 Specialty Diagnoses / Procedures Referred By Contac t Referred To Contact Shorty Teresa MD [address] [place] [id number] Referral ID Status Reason Start Date Expiration Date Visits Re quested Visits Authorized [id number] Closed 1 1 Specialty Diagnoses / Procedures Referred By Contac t Referred To Contact Diagnoses Hyperparathyroidism (HCC) Procedures CONSULT TO ENDOCRINE SURGERY OFFICE/OUTPATIENT [facility] 60-74 MINUTES Hayden Flanagan MD [address] [place] [address] Referral ID Status Reason Start Date Expiration Date Visits Requested Visits Authorized [id number] Pending Review PCP Requested Referral 09/13/2022 09/13/2023 1 1 Specialty Diagnoses / Procedures Referred By Contac t Referred To Contact Diagnoses Primary hyperparathyroidism (HCC) Procedures REFER TO PACC - PRE ANESTHESIA CONSULTATION CLINIC OFFICE/OUTPATIENT [facility] 60-74 MINUTES Leydi Vance MD [address] [place] [address] Referral ID Status Reason Start Date Expiration Date Visits Requested Visits Authorized [id number] Pending Review PCP Requested Referral 12/03/2022 12/03/2023 1 1 Specialty Diagnoses / Procedures Referred By Contact Referred To Contact MOLECULAR & FUNCTIONAL IMAGING Diagnoses Primary hyperparathyroidism (HCC) Hypercalcemia Procedures NM PARATHYROID W SPECT/CT PARATHYROID IMAGING W/TOMOGRAPHIC SPECT & CT Leydi Vance MD [address] [place] [address] Molecular & Functional Imaging [address] [place] [address] Referral ID Status Reason Start Date Expiration Date Visits Requested Visits Authorized [id number] Pending Review Auto-Generat ed Referral 12/03/2022 01/02/2024 1 1 Specialty Diagnoses / Procedures Referred By Contact Referred To Contact [facility] Diagnoses Primary hyperparathyroidism (HCC) Procedures ECG COMPLETE ECG ROUTINE ECG W/LEAST 12 LDS W/I&R Leydi Vance MD [address] [place] [address] [facility] [address] [place] [address] Referral ID Status Reason Start Date Expiration Date Visits Requested Visits Authorized [id number] Pending Review Auto-Generat ed Referral 12/03/2022 12/03/2023 1 1 Specialty Diagnoses / Procedures Referred By Contac t Referred To Contact [facility] Diagnoses Unsteady gait when walking At high risk for falls Procedures CONSULT TO PHYSICAL THERAPY PHYSICAL THERAPY EVALUATION HIGH COMPLEX 45 MINS Shorty Teresa MD [address] [place] [address] [facility] [address] [address] Referral ID Status Reason Start Date Expiration Date Visits Requested Visits Authorized [id number] Pending Review Auto-Generat ed Referral 01/09/2024 01/08/2025 1 1 Medications Administered Section Inactive Administered [...] ized section and content) DATE CREATED AUTHOR 01/14/2018 [facility] DATE CREATED AUTHOR AUTHOR'S ORGANIZ ATION 01/05/2023 [facility] DATE CREATED AUTHOR AUTHOR'S ORGANIZ ATION 02/15/2023 [facility] DATE CREATED AUTHOR AUTHOR'S ORGANIZ ATION 05/09/2024 [facility] Comments (unrecognize d section and content) In the event this informatio n is protected by the Federal Confidentiality of Alcohol and Drug Abuse Patient Records regulations: The Federal rules restrict any use of the information to criminally investigate or prosecute any alcohol or drug abuse patient.[facility] the event this information is protected by the Federal Confidentiality of Alcohol and Drug Abuse Patient Records regulations: The Federal rules restrict any use of the information to criminally investigate or prosecute any alcohol or drug abuse patient.[facility] HospitalIn the event this information is protected by the Federal Confidentiality of Alcohol and Drug Abuse Patient Records regulations: The Federal rules restrict any use of the information to criminally investigate or prosecute any alcohol or drug abuse patient.[facility] HospitalIn the event this information is protected by the Federal Confidentiality of Alcohol and Drug Abuse Patient Records regulations: The Federal rules restrict any use of the information to criminally investigate or prosecute any alcohol or drug abuse patient.[facility] HospitalIn the event this information is protected by the Federal Confidentiality of Alcohol and Drug Abuse Patient Records regulations: The Federal rules restrict any use of the information to criminally investigate or prosecute any alcohol or drug abuse patient.[facility] HospitalIn the event this information is protected by the Federal Confidentiality of Alcohol and Drug Abuse Patient Records regulations: The Federal rules restrict any use of the information to criminally investigate or prosecute any alcohol or drug abuse patient.[facility] HospitalIn the event this information is protected by the Federal Confidentiality of Alcohol and Drug Abuse Patient Records regulations: The Federal rules restrict any use of the information to criminally investigate or prosecute any alcohol or drug abuse patient.[facility] HospitalIn the event this information is protected by the Federal Confidentiality of Alcohol and Drug Abuse Patient Records regulations: The Federal rules restrict any use of the information to criminally investigate or prosecute any alcohol or drug abuse patient.[facility] HospitalIn the event this information is protected by the Federal Confidentiality of Alcohol and Drug Abuse Patient Records regulations: The Federal rules restrict any use of the information to criminally investigate or prosecute any alcohol or drug abuse patient.[facility] HospitalIn the event this information is protected by the Federal Confidentiality of Alcohol and Drug Abuse Patient Records regulations: The Federal rules restrict any use of the information to criminally investigate or prosecute any alcohol or drug abuse patient.[facility] HospitalIn the event this information is protected by the Federal Confidentiality of Alcohol and Drug Abuse Patient Records regulations: The Federal rules restrict any use of the information to criminally investigate or prosecute any alcohol or drug abuse patient.[facility] HospitalIn the event this information is protected by the Federal Confidentiality of Alcohol and Drug Abuse Patient Records regulations: The Federal rules restrict any use of the information to criminally investigate or prosecute any alcohol or drug abuse patient.[facility] HospitalIn the event this information is protected by the Federal Confidentiality of Alcohol and Drug Abuse Patient Records regulations: The Federal rules restrict any use of the information to criminally investigate or prosecute any alcohol or drug abuse patient.[facility] HospitalIn the event this information is protected by the Federal Confidentiality of Alcohol and Drug Abuse Patient Records regulations: The Federal rules restrict any use of the information to criminally investigate or prosecute any alcohol or drug abuse patient.[facility] HospitalIn the event this information is protected by the Federal Confidentiality of Alcohol and Drug Abuse Patient Records regulations: The Federal rules restrict any use of the information to criminally investigate or prosecute any alcohol or drug abuse patient.[facility] HospitalIn the event this information is protected by the Federal Confidentiality of Alcohol and Drug Abuse Patient Records regulations: The Federal rules restrict any use of the information to criminally investigate or prosecute any alcohol or drug abuse patient.[facility] HospitalIn the event this information is protected by the Federal Confidentiality of Alcohol and Drug Abuse Patient Records regulations: The Federal rules restrict any use of the information to criminally investigate or prosecute any alcohol or drug abuse patient.[facility] HospitalIn the event this information is protected by the Federal Confidentiality of Alcohol and Drug Abuse Patient Records regulations: The Federal rules restrict any use of the information to criminally investigate or prosecute any alcohol or drug abuse patient.[facility] HospitalIn the event this information is protected by the Federal Confidentiality of Alcohol and Drug Abuse Patient Records regulations: The Federal rules restrict any use of the information to criminally investigate or prosecute any alcohol or drug abuse patient.[facility] HospitalIn the event this information is protected by the Federal Confidentiality of Alcohol and Drug Abuse Patient Records regulations: The Federal rules restrict any use of the information to criminally investigate or prosecute any alcohol or drug abuse patient.[facility] HospitalIn the event this information is protected by the Federal Confidentiality of Alcohol and Drug Abuse Patient Records regulations: The Federal rules restrict any use of the information to criminally investigate or prosecute any alcohol or drug abuse patient.[facility] HospitalIn the event this information is protected by the Federal Confidentiality of Alcohol and Drug Abuse Patient Records regulations: The Federal rules restrict any use of the information to criminally investigate or prosecute any alcohol or drug abuse patient.[facility] HospitalIn the event this information is protected by the Federal Confidentiality of Alcohol and Drug Abuse Patient Records regulations: The Federal rules restrict any use of the information to criminally investigate or prosecute any alcohol or drug abuse patient.[facility] HospitalIn the event this information is protected by the Federal Confidentiality of Alcohol and Drug Abuse Patient Records regulations: The Federal rules restrict any use of the information to criminally investigate or prosecute any alcohol or drug abuse patient.[facility] HospitalIn the event this information is protected by the Federal Confidentiality of Alcohol and Drug Abuse Patient Records regulations: The Federal rules restrict any use of the information to criminally investigate or prosecute any alcohol or drug abuse patient.[facility] HospitalIn the event this information is protected by the Federal Confidentiality of Alcohol and Drug Abuse Patient Records regulations: The Federal rules restrict any use of the information to criminally investigate or prosecute any alcohol or drug abuse patient.[facility] HospitalIn the event this information is protected by the Federal Confidentiality of Alcohol and Drug Abuse Patient Records regulations: The Federal rules restrict any use of the information to criminally investigate or prosecute any alcohol or drug abuse patient.[facility] HospitalIn the event this information is protected by the Federal Confidentiality of Alcohol and Drug Abuse Patient Records regulations: The Federal rules restrict any use of the information to criminally investigate or prosecute any alcohol or drug abuse patient.[facility] HospitalIn the event this information is protected by the Federal Confidentiality of Alcohol and Drug Abuse Patient Records regulations: The Federal rules restrict any use of the information to criminally investigate or prosecute any alcohol or drug abuse patient.[facility] HospitalIn the event this information is protected by the Federal Confidentiality of Alcohol and Drug Abuse Patient Records regulations: The Federal rules restrict any use of the information to criminally investigate or prosecute any alcohol or drug abuse patient.[facility] HospitalIn the event this information is protected by the Federal Confidentiality of Alcohol and Drug Abuse Patient Records regulations: The Federal rules restrict any use of the information to criminally investigate or prosecute any alcohol or drug abuse patient.[facility] HospitalIn the event this information is protected by the Federal Confidentiality of Alcohol and Drug Abuse Patient Records regulations: The Federal rules restrict any use of the information to criminally investigate or prosecute any alcohol or drug abuse patient.[facility] HospitalIn the event this information is protected by the Federal Confidentiality of Alcohol and Drug Abuse Patient Records regulations: The Federal rules restrict any use of the information to criminally investigate or prosecute any alcohol or drug abuse patient.[facility] HospitalIn the event this information is protected by the Federal Confidentiality of Alcohol and Drug Abuse Patient Records regulations: The Federal rules restrict any use of the information to criminally investigate or prosecute any alcohol or drug abuse patient.[facility] HospitalIn the event this information is protected by the Federal Confidentiality of Alcohol and Drug Abuse Patient Records regulations: The Federal rules restrict any use of the information to criminally investigate or prosecute any alcohol or drug abuse patient.[facility] HospitalIn the event this information is protected by the Federal Confidentiality of Alcohol and Drug Abuse Patient Records regulations: The Federal rules restrict any use of the information to criminally investigate or prosecute any alcohol or drug abuse patient.[facility] HospitalIn the event this information is protected by the Federal Confidentiality of Alcohol and Drug Abuse Patient Records regulations: The Federal rules restrict any use of the information to criminally investigate or prosecute any alcohol or drug abuse patient.[facility] HospitalIn the event this information is protected by the Federal Confidentiality of Alcohol and Drug Abuse Patient Records regulations: The Federal rules restrict any use of the information to criminally investigate or prosecute any alcohol or drug abuse patient.[facility] HospitalIn the event this information is protected by the Federal Confidentiality of Alcohol and Drug Abuse Patient Records regulations: The Federal rules restrict any use of the information to criminally investigate or prosecute any alcohol or drug abuse patient.[facility] HospitalIn the event this information is protected by the Federal Confidentiality of Alcohol and Drug Abuse Patient Records regulations: The Federal rules restrict any use of the information to criminally investigate or prosecute any alcohol or drug abuse patient.[facility] HospitalIn the event this information is protected by the Federal Confidentiality of Alcohol and Drug Abuse Patient Records regulations: The Federal rules restrict any use of the information to criminally investigate or prosecute any alcohol or drug abuse patient.[facility] HospitalIn the event this information is protected by the Federal Confidentiality of Alcohol and Drug Abuse Patient Records regulations: The Federal rules restrict any use of the information to criminally investigate or prosecute any alcohol or drug abuse patient.[facility] HospitalIn the event this information is protected by the Federal Confidentiality of Alcohol and Drug Abuse Patient Records regulations: The Federal rules restrict any use of the information to criminally investigate or prosecute any alcohol or drug abuse patient.[facility] HospitalIn the event this information is protected by the Federal Confidentiality of Alcohol and Drug Abuse Patient Records regulations: The Federal rules restrict any use of the information to criminally investigate or prosecute any alcohol or drug abuse patient.[facility] HospitalIn the event this information is protected by the Federal Confidentiality of Alcohol and Drug Abuse Patient Records regulations: The Federal rules restrict any use of the information to criminally investigate or prosecute any alcohol or drug abuse patient.[facility] HospitalIn the event this information is protected by the Federal Confidentiality of Alcohol and Drug Abuse Patient Records regulations: The Federal rules restrict any use of the information to criminally investigate or prosecute any alcohol or drug abuse patient.[facility] HospitalIn the event this information is protected by the Federal Confidentiality of Alcohol and Drug Abuse Patient Records regulations: The Federal rules restrict any use of the information to criminally investigate or prosecute any alcohol or drug abuse patient.[facility] HospitalIn the event this information is protected by the Federal Confidentiality of Alcohol and Drug Abuse Patient Records regulations: The Federal rules restrict any use of the information to criminally investigate or prosecute any alcohol or drug abuse patient.[facility] HospitalIn the event this information is protected by the Federal Confidentiality of Alcohol and Drug Abuse Patient Records regulations: The Federal rules restrict any use of the information to criminally investigate or prosecute any alcohol or drug abuse patient.[facility] HospitalIn the event this information is protected by the Federal Confidentiality of Alcohol and Drug Abuse Patient Records regulations: The Federal rules restrict any use of the information to criminally investigate or prosecute any alcohol or drug abuse patient.[facility] HospitalIn the event this information is protected by the Federal Confidentiality of Alcohol and Drug Abuse Patient Records regulations: The Federal rules restrict any use of the information to criminally investigate or prosecute any alcohol or drug abuse patient.[facility] HospitalIn the event this information is protected by the Federal Confidentiality of Alcohol and Drug Abuse Patient Records regulations: The Federal rules restrict any use of the information to criminally investigate or prosecute any alcohol or drug abuse patient.[facility] HospitalIn the event this information is protected by the Federal Confidentiality of Alcohol and Drug Abuse Patient Records regulations: The Federal rules restrict any use of the information to criminally investigate or prosecute any alcohol or drug abuse patient.[facility] HospitalIn the event this information is protected by the Federal Confidentiality of Alcohol and Drug Abuse Patient Records regulations: The Federal rules restrict any use of the information to criminally investigate or prosecute any alcohol or drug abuse patient.[facility] HospitalIn the event this information is protected by the Federal Confidentiality of Alcohol and Drug Abuse Patient Records regulations: The Federal rules restrict any use of the information to criminally investigate or prosecute any alcohol or drug abuse patient.[facility] HospitalIn the event this information is protected by the Federal Confidentiality of Alcohol and Drug Abuse Patient Records regulations: The Federal rules restrict any use of the information to criminally investigate or prosecute any alcohol or drug abuse patient.[facility] HospitalIn the event this information is protected by the Federal Confidentiality of Alcohol and Drug Abuse Patient Records regulations: The Federal rules restrict any use of the information to criminally investigate or prosecute any alcohol or drug abuse patient.[facility] HospitalIn the event this information is protected by the Federal Confidentiality of Alcohol and Drug Abuse Patient Records regulations: The Federal rules restrict any use of the information to criminally investigate or prosecute any alcohol or drug abuse patient.[facility] HospitalIn the event this information is protected by the Federal Confidentiality of Alcohol and Drug Abuse Patient Records regulations: The Federal rules restrict any use of the information to criminally investigate or prosecute any alcohol or drug abuse patient.[facility] HospitalIn the event this information is protected by the Federal Confidentiality of Alcohol and Drug Abuse Patient Records regulations: The Federal rules restrict any use of the information to criminally investigate or prosecute any alcohol or drug abuse patient.[facility] HospitalIn the event this information is protected by the Federal Confidentiality of Alcohol and Drug Abuse Patient Records regulations: The Federal rules restrict any use of the information to criminally investigate or prosecute any alcohol or drug abuse patient.[facility] HospitalIn the event this information is protected by the Federal Confidentiality of Alcohol and Drug Abuse Patient Records regulations: The Federal rules restrict any use of the information to criminally investigate or prosecute any alcohol or drug abuse patient.[facility] HospitalIn the event this information is protected by the Federal Confidentiality of Alcohol and Drug Abuse Patient Records regulations: The Federal rules restrict any use of the information to criminally investigate or prosecute any alcohol or drug abuse patient.[facility] HospitalIn the event this information is protected by the Federal Confidentiality of Alcohol and Drug Abuse Patient Records regulations: The Federal rules restrict any use of the information to criminally investigate or prosecute any alcohol or drug abuse patient.[facility] HospitalIn the event this information is protected by the Federal Confidentiality of Alcohol and Drug Abuse Patient Records regulations: The Federal rules restrict any use of the information to criminally investigate or prosecute any alcohol or drug abuse patient.[facility] HospitalIn the event this information is protected by the Federal Confidentiality of Alcohol and Drug Abuse Patient Records regulations: The Federal rules restrict any use of the information to criminally investigate or prosecute any alcohol or drug abuse patient.[facility] HospitalIn the event this information is protected by the Federal Confidentiality of Alcohol and Drug Abuse Patient Records regulations: The Federal rules restrict any use of the information to criminally investigate or prosecute any alcohol or drug abuse patient.[facility] HospitalIn the event this information is protected by the Federal Confidentiality of Alcohol and Drug Abuse Patient Records regulations: The Federal rules restrict any use of the information to criminally investigate or prosecute any alcohol or drug abuse patient.[facility] HospitalIn the event this information is protected by the Federal Confidentiality of Alcohol and Drug Abuse Patient Records regulations: The Federal rules restrict any use of the information to criminally investigate or prosecute any alcohol or drug abuse patient.[facility] HospitalIn the event this information is protected by the Federal Confidentiality of Alcohol and Drug Abuse Patient Records regulations: The Federal rules restrict any use of the information to criminally investigate or prosecute any alcohol or drug abuse patient.[facility] HospitalIn the event this information is protected by the Federal Confidentiality of Alcohol and Drug Abuse Patient Records regulations: The Federal rules restrict any use of the information to criminally investigate or prosecute any alcohol or drug abuse patient.[facility] HospitalIn the event this information is protected by the Federal Confidentiality of Alcohol and Drug Abuse Patient Records regulations: The Federal rules restrict any use of the information to criminally investigate or prosecute any alcohol or drug abuse patient.[facility] HospitalIn the event this information is protected by the Federal Confidentiality of Alcohol and Drug Abuse Patient Records regulations: The Federal rules restrict any use of the information to criminally investigate or prosecute any alcohol or drug abuse patient.[facility] Reason for Visit (unrecogniz ed section and content) Reason Comments ER F/U 12/02/21 Specialty Diagnoses / Procedures Referred By Antione t Referred To Contact Family Practice / FAMILY MEDICINE Diagnoses Open Celulitis blister/Possible UTI Procedures 4C EST Self Arnold Mcconnell MD [address] [place] [address] Referral ID Status Reason Start Date Expiration Date V isits Requested Visits Authorized [id number] Closed Financial Clearance Required - OON Payor [...] Follow Up 6 month Reason Comments Results Pattern Puncher - Other Orders Reason Comments Consult UTI Reason Comments Follow Up Reason Comments Referral Request Thyroid Surgeon Reason Comments orders for medication infusion Reason Comments Non-Chemotherapy Treatment Specialty Diagnoses / Procedures Referred By Contac t Referred To Contact Diagnoses Other osteoporosis, unspecified pathological fracture presence Procedures INJECTION, ZOLEDRONIC ACID, 1 MG Hayden Flanagan MD [address] [place] [address] [facility] [address] [place] [address] Referral ID Status Reason Start Date Expiration Date V isits Requested Visits Authorized [id number] Authorized 09/13/2022 09/14/2023 1 1 Reason Onset [...] 60-74 MINUTES Hayden Flanagan MD [address] [place] [address] Referral ID Status Reason Start Date Expiration Date V isits Requested Visits Authorized [id number] Closed PCP Requested Referral 09/13/2022 09/13/2023 1 1 Reason Comments preop pacc / OR MM 02/08/23 Parathyroide ctomy Reason Onset Date Comments Refill Request 12/19/2022 Reason Comments New Knee Pain Reason Comments Anesthesia Consult Reason Comments Mammogram Order Reason Comments Follow Up Reason Comments Follow Up 4 month follow up Reason Onset Date Comments Population Health Navigation Outreach 11/06/2023 [facility] HCC/CARE GAPS ADAN PCSA Reason Comments Appointment Insurance Authorization Prior Auth Delay ed: Additional Info Needed (Visco) Reason Comments location change of physical therapy Reason Comments Medicare Wellness Exam Pain Patient wanting to a sk about her neck pain Reason Onset Date Comments Refill Request 01/13/2024 Reason Comments Follow Up Durolane injection Specialty Diagnoses / Procedures Referred By Rebeccaac t Referred To Contact ORTHOPAEDIC SURGERY Diagnoses Primary osteoarthritis of right knee Procedures DUROLANE PER 1MG durolane or payer preferred Arnol Jonas MD [address] [address] [facility] [address] [address] Referral ID Status Reason Start Date Expiration Date V isits Requested Visits Authorized [id number] Authorized 12/02/2023 12/01/2024 2 2 Reason Onset Date Comments Refill Request 03/20/2024 Reason Onset Date Comments Refill Request 04/09/2024 Reason Comments F/U 3 Month Reason Comments Results Care Teams (unrecognized sec tion and content) Dental Floss Packer Relationship Specialty Start Date End Date Shorty Teresa MD [address], [place] [id number] PCP - General Family Practice 03/27/17 Dental Floss Packer Relationship Specialty Start Date End Date Shorty Teresa MD [address] [place] [address] PCP - General Family Practice 03/27/17 Dental Floss Packer Relationship Specialty Start Date End Date Shorty Teresa MD [address] [place], [place] [address] [phone] PCP - General Family Practice 03/27/17 Dental Floss Packer Relationship Specialty Start Date End Date Shorty Teresa MD [address] [place] [address] PCP - General Family Practice 03/27/17 Dental Floss Packer Relationship Specialty Start Date End Date Shorty Teresa MD [address] [place] [address] PCP - General Family Practice 03/27/17 Dental Floss Packer Relationship Specialty Start Date End Date Shorty Teresa MD [address] [place] [address] PCP - General Family Practice 03/27/17 Dental Floss Packer Relationship Specialty Start Date End Date Shorty Teresa MD [address] [place] [address] PCP - General Family Practice 03/27/17 Dental Floss Packer Relationship Specialty Start Date End Date Shorty Teresa MD [address] [place] [address] PCP - General Family Practice 03/27/17 Dental Floss Packer Relationship Specialty Start Date End Date Shorty Teresa MD [address] [place] [address] PCP - General Family Medicine 03/27/17 Dental Floss Packer Relationship Specialty Start Date End Date Shorty Teresa MD [address] [place] [address] PCP - General Family Medicine 03/27/17 Dental Floss Packer Relationship Specialty Start Date End Date Shorty Teresa MD [address] [place] [address] PCP - General Family Medicine 03/27/17 Dental Floss Packer Relationship Specialty Start Date End Date Shorty Teresa MD [address] [place] [address] PCP - General Family Medicine 03/27/17 Dental Floss Packer Relationship Specialty Start Date End Date Shorty Teresa MD [address] [place] [address] PCP - General Family Medicine 03/27/17 Dental Floss Packer Relationship Specialty Start Date End Date Shorty Teresa MD [address] [place] [address] PCP - General Family Medicine 03/27/17 Dental Floss Packer Relationship Specialty Start Date End Date Shorty Teresa MD [address] [place] [address] PCP - General Family Medicine 03/27/17 Dental Floss Packer Relationship Specialty Start Date End Date Shorty Teresa MD [address] [place] [address] PCP - General Family Medicine 03/27/17 Dental Floss Packer Relationship Specialty Start Date End Date Shorty Teresa MD [address] [place] [address] PCP - General Family Medicine 03/27/17 Dental Floss Packer Relationship Specialty Start Date End Date Shorty Teresa MD [address] [place] [address] PCP - General Family Medicine 03/27/17 Dental Floss Packer Relationship Specialty Start Date End Date Shorty Teresa MD [address] [place] [address] PCP - General Family Medicine 03/27/17 Dental Floss Packer Relationship Specialty Start Date End Date Shorty Teresa MD [address] [place] [address] PCP - General Family Medicine 03/27/17 Dental Floss Packer Relationship Specialty Start Date End Date Shorty Teresa MD [address] [facility] [address] PCP - General Family Medicine 03/27/17 Dental Floss Packer Relationship Specialty Start Date End Date Shorty Teresa MD [address] [place] [address] PCP - General Family Medicine 03/27/17 Dental Floss Packer Relationship Specialty Start Date End Date Shorty Teresa MD [address] [place] [address] PCP - General Family Medicine 03/27/17 Dental Floss Packer Relationship Specialty Start Date End Date Shorty Teresa MD [address] [place] [address] PCP - General Family Medicine 03/27/17 Dental Floss Packer Relationship Specialty Start Date End Date Shorty Teresa MD [address] [place] [address] PCP - General Family Medicine 03/27/17 Dental Floss Packer Relationship Specialty Start Date End Date Shorty Teresa MD [address] [place] [address] PCP - General Family Medicine 03/27/17 Dental Floss Packer Relationship Specialty Start Date End Date Shorty Teresa MD [address] [place] [address] PCP - General Family Medicine 03/27/17 Dental Floss Packer Relationship Specialty Start Date End Date Shorty Teresa MD [address] [place] [address] PCP - General Family Medicine 03/27/17 Dental Floss Packer Relationship Specialty Start Date End Date Shorty Teresa MD [address] [place] [address] PCP - General Family Medicine 03/27/17 Dental Floss Packer Relationship Specialty Start Date End Date Shorty Teresa MD [address] [place] [address] PCP - General Family Medicine 03/27/17 Dental Floss Packer Relationship Specialty Start Date End Date Shorty Teresa MD [address] [place] [address] PCP - General Family Medicine 03/27/17 Dental Floss Packer Relationship Specialty Start Date End Date Shorty Teresa MD [address] [place] [address] PCP - General Family Medicine 03/27/17 Dental Floss Packer Relationship Specialty Start Date End Date Shorty Teresa MD [address] [place] [address] PCP - General Family Medicine 03/27/17 Dental Floss Packer Relationship Specialty Start Date End Date Shorty Teresa MD [address] [place] [address] PCP - General Family Medicine 03/27/17 Dental Floss Packer Relationship Specialty Start Date End Date Shorty Teresa MD [address] [place] [address] PCP - General Family Medicine 03/27/17 Dental Floss Packer Relationship Specialty Start Date End Date Shorty Teresa MD [address] [place] [address] PCP - General Family Medicine 03/27/17 Dental Floss Packer Relationship Specialty Start Date End Date Shorty Teresa MD [address] [place] [address] PCP - General Family Medicine 03/27/17 Dental Floss Packer Relationship Specialty Start Date End Date Shorty Teresa MD [address] [place] [address] PCP - General Family Medicine 03/27/17 Dental Floss Packer Relationship Specialty Start Date End Date Shorty Teresa MD [address] [place] [address] PCP - General Family Medicine 03/27/17 Dental Floss Packer Relationship Specialty Start Date End Date Shorty Teresa MD [address] [place] [address] PCP - General Family Medicine 03/27/17 Dental Floss Packer Relationship Specialty Start Date End Date Shorty Teresa MD [address] [place] [address] PCP - General Family Medicine 03/27/17 Dental Floss Packer Relationship Specialty Start Date End Date Shorty Teresa MD [address] [place] [address] PCP - General Family Medicine 03/27/17 Dental Floss Packer Relationship Specialty Start Date End Date Shorty Teresa MD [address] [place] [address] PCP - General Family Medicine 03/27/17 Dental Floss Packer Relationship Specialty Start Date End Date Shorty Teresa MD [address] [place] [address] PCP - General Family Medicine 03/27/17 Dental Floss Packer Relationship Specialty Start Date End Date Shorty Teresa MD [address] [place] [address] PCP - General Family Medicine 03/27/17 Dental Floss Packer Relationship Specialty Start Date End Date Shorty Teresa MD [address] [place] [address] PCP - General Family Medicine 03/27/17 Dental Floss Packer Relationship Specialty Start Date End Date Shorty Teresa MD [address] [place] [address] PCP - General Family Medicine 03/27/17 Dental Floss Packer Relationship Specialty Start Date End Date Shorty Teresa MD [address] [place] [address] PCP - General Family Medicine 03/27/17 Dental Floss Packer Relationship Specialty Start Date End Date Shorty Teresa MD [address] [place] [address] PCP - General Family Medicine 03/27/17 Dental Floss Packer Relationship Specialty Start Date End Date Shorty Teresa MD [address] [place] [address] PCP - General Family Medicine 03/27/17 Dental Floss Packer Relationship Specialty Start Date End Date Shorty Teresa MD [address] [place] [address] PCP - General Family Medicine 03/27/17 Dental Floss Packer Relationship Specialty Start Date End Date Shorty Teresa MD [address] [place] [address] PCP - General Family Medicine 03/27/17 Dental Floss Packer Relationship Specialty Start Date End Date Shorty Teresa MD [address] [place] [address] PCP - General Family Medicine 03/27/17 Dental Floss Packer Relationship Specialty Start Date End Date Shorty Teresa MD [address] [place], [place] [address] PCP - General Family Medicine 03/27/17 Dental Floss Packer Relationship Specialty Start Date End Date Shorty Teresa MD [address] [place], [place] [address] PCP - General Family Medicine 03/27/17 FOR [...] BE BASED ON THE PRIMARY CLINICAL RECORDS. [employer] provides no warranty or guarantee of the accuracy or completeness of information in this document.
== END | disposition home or self-care (01) ==
LOC: LAB 16:09
PROVIDERS: PCP Family Medicine; Referring Provider Anesthesiology Pain Medicine; Visit Provider Anesthesiology Pain Medicine
DX: F11.20 Opioid dependence, uncomplicated (principal)
CPT/HCPCS: 80307

== ENCOUNTER 2024-12-20 05:51 | Inpatient (IN) | payer MEDICARE, MEDICAID, SELFPAY ==
[2024-12-20] VITALS (12 sets, daily range): BP systolic 116–148; BP diastolic 63–86; PULSE 84–95; RESP 14–20; TEMP 36.5–37.1; O2SAT 92–100; BMI 42.1; BMI 40.2
--- NOTE | 2024-12-20 06:17 | EKG12_ITS ---
Test Reason : WEAKNESS Blood Pressure : */* mmHG Vent. Rate : 85 BPM Atrial Rate : 85 BPM P-R Int : 152 ms QRS Dur : 92 ms QT Int : 378 ms P-R-T Axes : 58 46 64 degrees QTcB Int : 449 ms Normal sinus rhythm Normal ECG Confirmed by Nick Aguilar ([id number]), editorial cartoonist EARL SILVA ([id number]) on 12/21/2024 10:58:38 AM Referred By: Confirmed By: Nick Aguilar
--- NOTE | 2024-12-20 06:17 | CT_ITS ---
PROCEDURE: STROKE CTA HEAD AND NECK W/CON 12/20/2024 REASON FOR EXAM: NEURO DEFICIT, ACUTE, STROKE SUSPECTED TECHNIQUE: CTA imaging of the head and neck from the aortic arch to the skull vertex with out contrast and with intravenous contrast. Multiplanar and multisequence images were obtained. Coronal and sagittal MIP images CONTRAST: 100 cc Isovue 370 IV One or more dose reduction techniques were used (e.g., Automated exposure control, adjustment of the mA and/or kV according to patient size, use of iterative reconstruction technique). RADIATION DOSE SUMMARY: CTDlvol: 20.76 mGy DLP: 520 mGycm FINDINGS: Thoracic aortic arch and standard three-vessel branching appears within limits. The vertebral arteries arise as expected and appear codominant with both contributing to the basilar artery. The cervical vertebral arteries appear intact throughout without flow significant stenosis, vessel cut off or dissection. Undulating vessels. The right and left common and internal carotid arteries are patent without flow significant stenosis, vessel cut off or dissection. Mild calcific plaque formation seen at the left carotid bulb. Petrous and paraclinoid internal carotid arteries are patent. The anterior circulation appears intact. Right and left middle and anterior cerebral arteries appear within limits. Posterior circulation appears intact. The basilar, bilateral superior cerebellar and posterior cerebral arteries appear intact. No vessel cut off, flow significant stenosis or aneurysm. Major dural venous sinuses appear within limits. Multilevel cervical spondylosis/discogenic change with bilateral foraminal and central canal narrowing. Mild superior endplate compression deformity suggested T1 and T2. CT/STROKE CTA Head AND Neck W/Con IMPRESSION: No vessel cut off, flow significant stenosis or aneurysm CTA head and neck. Findings discussed verbally by myself with Dr. Adam at 8:05 a.m. December 20, 2024 Reading Location: [id number]
--- NOTE | 2024-12-20 06:17 | CT_ITS ---
PROCEDURE: STROKE BRAIN/HEAD WITHOUT CONT N/A REASON FOR EXAM: NEURO DEFICIT, ACUTE, STROKE SUSPECTED TECHNIQUE: Head CT without intravenous contrast. Coronal and Sagittal reconstruction series were provided. One or more dose reduction techniques were used (e.g., Automated exposure control, adjustment of the mA and/or kV according to patient size, use of iterative reconstruction technique. RADIATION DOSE SUMMARY: CTDlvol: 44.99 mGy DLP: 762.36 mGycm FINDINGS: No intracranial hemorrhage, mass effect or CT evidence of large vascular territory acute infarct. The ventricles are unchanged in size and remain midline. 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 Possible mucous retention cyst right sphenoid sinus. There is now bilateral prominent appearance of the superior ophthalmic veins for example axial 8 may represent volume overload among others, nonspecific. CT/STROKE Brain/Head without Cont IMPRESSION: No intracranial hemorrhage, mass effect or CT evidence of large vascular territ ory acute infarct. 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 There is now bilateral prominent appearance of the superior ophthalmic veins fo r example axial 8 may represent volume overload among others, nonspecific. Reading Location: [id number]
[2024-12-20 06:42] LABS: Absolute Lymphocyte Count 1.73 X10^3/uL (0.83-4.51); Absolute Neutrophil Count 4.1 X10^3/uL (2.0-7.7); Basophil# 0.03 X10^3/uL; Basophil% 0.4 % (0-1); Eosinophils% 4.4 % (0-5); Hematocrit 39.3 % (37-47); Hemoglobin 12.5 g/dL (12.0-15.0); Lymphocyte # 1.73 X10^3/ul (0.83-4.51); Lymphocyte % 25.3 % (19-41); Mean Corp Hgb Conc 31.8 g/dL (32-36); Mean Corpuscular Hgb 29.6 pg (27.0-32.0); Mean Corpuscular Volume 93.1 fL (81-99); Mean Platelet Vol. 9.7 fl (6.2-12.0); Monocyte# 0.62 X10^3/uL; Monocyte% 9.1 % (0-10); NRBC Flagged by Analyzer 0 % (0-5); Neutrophil # 4.13 X10^3/uL (2.7-7.7); Neutrophil % 60.4 % (47-70); Platelet Count 235 K/mm3 (150-450); RBC Distribution Width CV 12.8 % (11.6-14.6); RBC Distribution Width SD 43.5 fl (35.1-43.9); Red Blood Count 4.22 M/mm3 (4.2-5.4); White Blood Count 6.8 K/mm3 (4.4-11.0)
[2024-12-20] MEDS: 0.9% Normal Saline (1000mL) 1,000 ML 999 ML IV (06:42)
[2024-12-20 06:51] LABS: Bacteria 0 SEEN /hpf (None Seen); Mucous, Urine 0 SEEN /hpf (<or=2+); Red Blood Cells-Urine 0 SEEN /hpf (0-5)
[2024-12-20 06:54] LABS: Color, Urine Straw (Yellow); Glucose, Dipstick Normal (Normal); Ketone-Dipstick Negative (Negative); Leukocyte Esterase-Dipstick 500 /ul (Negative); Nitrite-Dipstick Negative (Negative); Occult Blood-Urine 25 /ul (Negative); Protein-Dipstick 30 mg/dl (Negative); Specific Gravity, Urine 1.015 (1.002-1.030); Urine Bilirubin Dipstick Negative (Negative); Urine Clarity Sl. Cloudy (Clear); Urine Urobilinogen Normal (Normal); Urine pH 6.5 (5.0 - 8.0)
[2024-12-20 06:55] LABS: International Normalized Ratio 0.9; Prothrombin Time (Protime)PT. 12.8 SECONDS (11.7-14.9)
[2024-12-20 06:56] LABS: Partial Thromboplast Time 26.1 Seconds (24.1-36.2)
--- NOTE | 2024-12-20 07:00 | EX.ED.DYSGE1 ---
HPI History of Present Illness Chief Complaint: Weakness Narrative Narrative: Patient is a 74-year-old female with past medical history of previous stroke with left arm weakness and left lower extremity weakness, venous insufficiency, with lymphedema who presents to the emergency department the chief complaint of multiple falls in 24 hours. Patient states that she has had 4 falls in 24 hours she states that her left lower leg is more weak than normal. She states that originally she thought that she was developing a urinary tract infection increase her water intake and states that her urinary symptoms started to improve therefore she did not feel that this was the case anymore. She states that after her last fall she called EMS to have her brought here for further evaluation management. They note that they have had to help her up every single time that she is falling as she lives alone [facility] Medical History Osteoporosis Wound of left leg Debility Venous insufficiency of both lower extremities Wound of left lower extremity Cancer Chronic pain Non-smoker Migraines Stroke/cerebrovascular accident Lymphedema Venous insufficiency History of stroke Home Medications ?Medication ?Instructions ?Recorded ?Last Taken ?Type diltiazem HCl 300 mg 300 mg PO DAILY prevents migraines 04/09/15 12/19/24 History capsule,extended release 24 hr gabapentin 300 mg capsule 300 mg PO DAILY nerve pain 04/09/15 12/19/24 History cholecalciferol (vitamin D3) 50 2,000 unit PO DAILY supplement 03/19/18 12/19/24 History mcg (2,000 unit) capsule (Vitamin D3) hydrocodone-acetaminophen 5-325mg 2 tab PO TID PRN pain 08/17/19 12/19/24 History 5mg-325mg amitriptyline 75 mg tablet 75 mg PO QHS migraine prevention 05/02/20 12/19/24 History atorvastatin 10 mg tablet 10 mg PO QHS cholesterol 02/28/21 12/19/24 History calcium 500 mg (as 1 tab PO BID 07/28/23 12/19/24 History carbonate)-vitamin D3 10 mcg (400 unit) tablet (Oyster Shell Calcium-Vitamin D3) tolterodine 4 mg capsule,extended 4 mg PO DAILY 07/28/23 12/19/24 History release 24 hr furosemide 40 mg tablet 40 mg PO DAILY 12/20/24 12/19/24 History multivitamin (Daily Multi-Vitamin 1 tab PO DAILY 12/20/24 12/19/24 History tablet) omeprazole 40 mg capsule,delayed 40 mg PO DAILY 12/20/24 12/19/24 History release potassium chloride 20 mEq/15 mL 40 meq PO DAILY 12/20/24 12/19/24 History oral liquid Allergy/AdvReac Type Severity Reaction Status Date / Time hydrochlorothiazide Allergy increases Verified 12/20/24 05:55 calcium metronidazole (From Flagyl) Allergy Diarrhea Verified 12/20/24 05:55 triamterene AdvReac increases Verified 12/20/24 05:55 calcium Surgical History History of cholecystectomy Social History Smoking Status: Never smoker ROS ROS ED ROS Narrative Constitutional: Denies headache, fever, chills Eyes: Denies change in vision double vision blurry vision Cardiovascular: Denies chest pain Respiratory: Denies coughing wheezing shortness of breath Abdomen: Denies abdominal pain nausea vomit diarrhea : Complains urinary symptoms as noted above Neurological: Complains of left lower extremity weakness as noted above Skin: Denies new rashes or lesions EXAM Physical Exam Narrative Exam Narrative: General: Patient lying in bed rest comfortably did not appear to be in acute distress Head: Atraumatic, normocephalic Eyes: PERRL bilaterally, EOMI bilaterally, no conjunctival injection noted Neck: Soft, supple, trachea midline Cardiovascular: Regular rate and rhythm Respiratory: Clear to auscultation bilaterally Abdomen: Soft, nondistended, nontender to palpation Musculoskeletal: All bony prominence palpated joints taken to full range of motion no pain elicited Extremities: Patient has residual left arm weakness from her previous stroke as well as left lower extremity weakness although she states that this is worse than normal, +4/5 strength noted in the right upper and lower extremity radial pulses +2/4 in the bilateral extremities Neurological: Patient functioning is that she was at [facility] years 25 Skin: Warm, dry, chronic skin changes in the bilateral lower extremities Const Vital Signs: 12/20/24 05:52 12/20/24 05:55 12/20/24 06:17 Temperature 97.9 F Temperature Source Oral Pulse Rate 84 87 Respiratory Rate 14 16 Respiratory Pattern Normal Blood Pressure 125/69 H 116/67 Blood Pressure Mean 87 83 Pulse Ox 94 92 Oxygen Delivery Method Room Air 12/20/24 06:44 12/20/24 08:00 12/20/24 08:08 Temperature Temperature Source Pulse Rate 84 84 Respiratory Rate 16 16 Respiratory Pattern Blood Pressure 118/65 Blood Pressure Mean 82 Pulse Ox 92 94 94 Oxygen Delivery Method Room Air Room Air Room Air MDM MDM MDM Narrative Medical decision making narrative: Patient is a 74-year-old female who presents to the emergency department the chief complaint of 4 falls in the last 24 hours. On the differential diagnosis includes but not limited to large vessel occlusion, CVA, electrolyte abnormality, UTI, generalized weakness. Once workup is obtained reviewed she will be reevaluated. Patient is not a tenecteplase candidate as her symptoms started well over 4.5 hours ago as noted above. Patient is also not a LVO candidate as her symptoms started over 24 hours ago Patient is a CBC was reviewed and showed no evidence leukocytosis white blood count normal at 6.8, he was 12.5, platelet count was 235. Patient's sodium normal 140, potassium normal 3.7, creatinine normal at 0.61. Patient lactic acid was normal at less than 1. Patient AST and ALT were 100 and 108 respectively, lipase was 12, urinalysis reviewed showed no evidence of infection. Patient's CT brain showed no acute intracranial hemorrhage mass effect or large vessel territory infarct there is an old right MCA distribution infarct with encephalomalacia and right wallerian degeneration again noted. She has bilateral prominent appearance of the superior ophthalmic veins which may represent volume overload state. Patient's CTA head and neck showed no acute large vessel occlusion. At this point time given the patient lives alone she has had 4 falls in 24 hours with EMS having to help her multiple times with worsening left lower extremity weakness will discuss case with hospitalist for admission Discussed case with hospitalist Dr. Romero who accept the patient for admission. Notified the patient she is agreeable spinal course concerns answered. Lab Data Labs: Laboratory Results - last 24 hr 12/20/24 12/20/24 12/20/24 06:25 06:42 06:48 WBC 6.8 RBC 4.22 Hgb 12.5 Hct 39.3 MCV 93.1 MCH 29.6 MCHC 31.8 L RDW Std Deviation 43.5 RDW Coeff of Adriana 12.8 Plt Count 235 MPV 9.7 Immature Gran % (Auto) 0.400 Neut % (Auto) 60.4 Lymph % (Auto) 25.3 Coos % (Auto) 9.1 Eos % (Auto) 4.4 Baso % (Auto) 0.4 Absolute Neuts (auto) 4.1 Absolute Lymphs (auto) 1.73 Nucleated RBC % 0 PT 12.8 INR 0.9 APTT 26.1 Sodium 140 Potassium 3.7 Chloride 102 Carbon Dioxide 28.0 Anion Gap 10 BUN 10 Creatinine 0.61 L Estim Creat Clear Calc 62.75 Est GFR (MDRD) Non-Af 93 BUN/Creatinine Ratio 16.8 Glucose 103 H Lactic Acid < 1.0 Calcium 8.5 Total Bilirubin 0.36 Direct Bilirubin 0.11 AST 100 H ALT 108 H Alkaline Phosphatase 201 H Troponin T High Sens 6 Total Protein 6.2 Albumin 3.6 Globulin 2.6 Lipase 12 L Urine Color Straw Urine Clarity Sl. Cloudy Urine pH 6.5 Ur Specific [place] 1.015 Urine Protein 30 H Urine Glucose (UA) Normal Urine Ketones Negative Urine Occult Blood 25 H Urine Nitrite Negative Urine Bilirubin Negative Urine Urobilinogen Normal Ur Leukocyte Esterase 500 H Urine RBC 0 SEEN Urine WBC 10-25 SEEN Ur Squamous Epith Cells 0-5 SEEN Urine Bacteria 0 SEEN Urine Mucus 0 SEEN POC Glucose 93 Radiography Diagnostic Testing: Clinical Impression(s) from Imaging Studies Brain CT 12/20/24 06:17 IMPRESSION: No intracranial hemorrhage, mass effect or CT evidence of large vascular territory acute infarct. 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 There is now bilateral prominent appearance of the superior ophthalmic veins for example axial 8 may represent volume overload among others, nonspecific. Reading Location: [facility] Head/Neck CTA 12/20/24 06:17 IMPRESSION: No vessel cut off, flow significant stenosis or aneurysm CTA head and neck. Findings discussed verbally by myself with Dr. Adam at 8:05 a.m. December 20, 2024 Reading Location: [facility] Discharge Plan Triage Chief Complaint: Weakness ED Provider: Isaiah Adam Dx/Rx/DC Orders Clinical Impression: Generalized weakness, Multiple falls Prescriptions: No Action diltiazem HCl 300 MG capsule,extended release 24hr 300 mg PO DAILY gabapentin 300 MG capsule 300 mg PO DAILY cholecalciferol (vitamin D3) [Vitamin D3] 2,000 UNIT capsule 2,000 unit PO DAILY hydrocodone-acetaminophen 1 TABLET tablet 2 tab PO TID PRN (Reason: pain) amitriptyline 75 MG tablet 75 mg PO QHS atorvastatin 10 mg Tablet 10 mg PO QHS calcium carbonate-vitamin D3 [Oyster Shell Calcium-Vit D3] 500 mg-10 mcg (400 unit) tablet 1 tab PO BID tolterodine 4 mg capsule,extended release 24hr 4 mg PO DAILY potassium chloride 20 mEq/15 mL liquid 40 meq PO DAILY multivitamin [Daily Multi-Vitamin] Tablet 1 tab PO DAILY furosemide 40 mg tablet 40 mg PO DAILY omeprazole 40 mg capsule,delayed release(DR/EC) 40 mg PO DAILY Primary Care Provider: Miguel Teresa Referrals: Miguel Teresa MD [Primary Care Provider] - Print Language: [place] Disposition Disposition: Acute Care Hospital [facility]
[2024-12-20 07:06] LABS: Bedside Glucose 93 mg/dL (74-106)
[2024-12-20 07:15] LABS: Lactic Acid < 1.0 mmol/L (0.0-2.0)
[2024-12-20 07:16] LABS: AST(SGOT) 100 U/L (<=31); Alanine Aminotransfer ALT/SGPT 108 U/L (<=34); Albumin, Serum 3.6 g/dL (3.4-4.8); Alkaline Phosphatase 201 U/L (35-104); Anion Gap 10 (5-15); BUN 10 mg/dL (4-19); BUN/Creat Ratio 16.8 RATIO (10-20); Bilirubin, Direct 0.11 mg/dL (0.00-0.30); Calcium,Total 8.5 mg/dL (7.6-11.0); Chloride 102 mmol/L (98-108); Creatinine, Serum 0.61 mg/dL (0.70-1.20); EST Glomerular Filtration Rate 93 (>60); Estimated Creatinine Clearance 62.75 ml/min (50-250); Globulin 2.6 g/dL (2.2-4.2); Glucose 103 mg/dL (70-99); Potassium 3.7 mmol/L (3.3-5.1); Protein, Total 6.2 g/dL (5.9-8.4); Sodium Level 140 mmol/L (133-145); Total Bilirubin 0.36 mg/dL (0.00-1.30)
[2024-12-20 07:33] LABS: Lipase 12 U/L (13-75); Troponin T High Sensitivity 6 ng/L (<=14)
[2024-12-20 07:37] LABS: Squamous Epithelial Cells - UA 0-5 SEEN /hpf (5-10); White Blood Cells 10-25 SEEN /hpf (0-5)
--- NOTE | 2024-12-20 08:22 | PCM.HP.STD ---
HPI - General General Date of Admission: 12/20/24 Date of Service: 12/20/24 Chief Complaint: Weakness with falls HPI Narrative AMINATA LEE, is a 74 F who presented to [facility] ED on 12/20/2024 with worsening weakness with falls at home. Patient lives at home alone. Has history of remote stroke with left arm and left lower extremity weakness. She was in her normal state of health until a few days ago. She has history of UTIs and thought she may be developing another UTI, so she was increasing her water intake. Yesterday she noted that her left leg was feeling more weak than normal, and she fell when trying to get up out of her chair. She called EMS who noted that she continued to have difficulty with moving much on her own, so she was brought in for further evaluation. In the ED she was afebrile and hemodynamically stable. Lab workup was notable for mildly elevated LFTs and CK level 2547, were otherwise benign. UA was noninfectious appearing. Given her weakness with falls and her living alone, hospitalist was contacted for admission. I saw the patient at bedside on the floor shortly after she arrived over from the ED. Patient was sitting back comfortably in bed, conversing normally and in no acute distress. She is mildly fatigued appearing but otherwise had good color and skin turgor and did not appear significantly dehydrated. She noted that her left leg continues to feel slightly weaker than her normal but is improved from yesterday. She otherwise denies any acute concerns at this time. [facility] Medical History (Updated 12/20/24 @ 12:[address] Willian Romero, DO) GERD (gastroesophageal reflux disease) Osteoporosis Wound of left leg Debility Venous insufficiency of both lower extremities Wound of left lower extremity Cancer Chronic pain Non-smoker Migraines Stroke/cerebrovascular accident Lymphedema Venous insufficiency History of stroke Home Medications ?Medication ?Instructions ?Recorded ?Last Taken ?Type diltiazem HCl 300 mg 300 mg PO DAILY prevents migraines 04/09/15 12/19/24 History capsule,extended release 24 hr gabapentin 300 mg capsule 300 mg PO DAILY nerve pain 04/09/15 12/19/24 History cholecalciferol (vitamin D3) 50 2,000 unit PO DAILY supplement 03/19/18 12/19/24 History mcg (2,000 unit) capsule (Vitamin D3) hydrocodone-acetaminophen 5-325mg 2 tab PO TID PRN pain 08/17/19 12/19/24 History 5mg-325mg amitriptyline 75 mg tablet 75 mg PO QHS migraine prevention 05/02/20 12/19/24 History atorvastatin 10 mg tablet 10 mg PO QHS cholesterol 02/28/21 12/19/24 History calcium 500 mg (as 1 tab PO BID 07/28/23 12/19/24 History carbonate)-vitamin D3 10 mcg (400 unit) tablet (Oyster Shell Calcium-Vitamin D3) tolterodine 4 mg capsule,extended 4 mg PO DAILY 07/28/23 12/19/24 History release 24 hr furosemide 40 mg tablet 40 mg PO DAILY 12/20/24 12/19/24 History multivitamin (Daily Multi-Vitamin 1 tab PO DAILY 12/20/24 12/19/24 History tablet) omeprazole 40 mg capsule,delayed 40 mg PO DAILY 12/20/24 12/19/24 History release potassium chloride 20 mEq/15 mL 40 meq PO DAILY 12/20/24 12/19/24 History oral liquid Allergy/AdvReac Type Severity Reaction Status Date / Time hydrochlorothiazide Allergy increases Verified 12/20/24 05:55 calcium metronidazole (From Flagyl) Allergy Diarrhea Verified 12/20/24 05:55 triamterene AdvReac increases Verified 12/20/24 05:55 calcium Surgical History History of cholecystectomy Social History Smoking Status: Never smoker ROS Constitutional Constitutional: Reports fatigue and weakness; Denies chills or fever(s) Eyes Eyes: Denies change in vision Cardiovascular Cardiovascular: Denies chest pain Respiratory/Chest Respiratory/Chest: Denies shortness of breath at rest Gastrointestinal Gastrointestinal: Denies abdominal pain, constipation, diarrhea, nausea or vomiting Genitourinary Genitourinary: Denies dysuria Musculoskeletal Musculoskeletal: Denies arthralgias or myalgias Neurologic Neurologic: Reports focal weakness; Denies dizziness, headache(s), numbness or paresthesias Vital Signs Vital Signs Vital Signs: 12/20/24 05:52 12/20/24 05:55 12/20/24 06:17 Temperature 97.9 F Temperature Source Oral Pulse Rate 84 87 Respiratory Rate 14 16 Respiratory Pattern Normal Blood Pressure 125/69 H 116/67 Blood Pressure Mean 87 83 Pulse Ox 94 92 Oxygen Delivery Method Room Air 12/20/24 06:44 12/20/24 08:00 12/20/24 08:08 Temperature Temperature Source Pulse Rate 84 84 Respiratory Rate 16 16 Respiratory Pattern Blood Pressure 118/65 Blood Pressure Mean 82 Pulse Ox 92 94 94 Oxygen Delivery Method Room Air Room Air Room Air Weight Weight: 97.84 kg Body Mass Index (BMI) 42.1 Physical Exam Const alert, oriented x3 and no apparent distress Constitutional Narrative: Pleasant elderly female, class III obesity, mildly fatigued appearing but otherwise sitting back comfortably in bed, conversing normally, in no acute distress. General Appearance: cooperative and comfortable HEENT normocephalic, head/scalp atraumatic, hearing grossly normal bilaterally, nasal mucous membranes and turbinates normal and moist oral mucous membranes Eyes PERRL, EOMs intact bilaterally and conjunctivae normal Neck full ROM Chest inspection of chest normal Resp normal respiratory effort, normal air movement, no use of accessory muscles and clear to auscultation bilaterally Cardio regular rate, regular rhythm, no murmurs and peripheral pulses 2+ throughout GI normal to inspection, nondistended, normoactive bowel sounds, soft to palpation, non-tender and non-distended Back/Spine normal ROM Extremity Extremity Narrative: Left leg with significant chronic venous stasis changes noted but per patient is at baseline. Neuro oriented x3 Neuro Narrative: Left upper extremity extended with hypertonicity noted. Left lower extremity with mild generalized weakness noted. Speech: speech normal Psych mental status grossly normal Results Lab / Micro Data 12/20/24 06:25 12/20/24 06:25 Labs: Laboratory Results - last 24 hr 12/20/24 06:25: WBC 6.8, RBC 4.22, Hgb 12.5, Hct 39.3, MCV 93.1, MCH 29.6, MCHC 31.8 L, RDW Std Deviation 43.5, RDW Coeff of Adriana 12.8, Plt Count 235, MPV 9.7, Immature Gran % (Auto) 0.400, Neut % (Auto) 60.4, Lymph % (Auto) 25.3, Iron % (Auto) 9.1, Eos % (Auto) 4.4, Baso % (Auto) 0.4, Absolute Neuts (auto) 4.1, Absolute Lymphs (auto) 1.73, Nucleated RBC % 0, PT 12.8, INR 0.9, APTT 26.1, Sodium 140, Potassium 3.7, Chloride 102, Carbon Dioxide 28.0, Anion Gap 10, BUN 10, Creatinine 0.61 L, Estim Creat Clear Calc 62.75, Est GFR (MDRD) Non-Af 93, BUN/Creatinine Ratio 16.8, Glucose 103 H, Lactic Acid < 1.0, Calcium 8.5, Total Bilirubin 0.36, Direct Bilirubin 0.11, AST 100 H, ALT 108 H, Alkaline Phosphatase 201 H, Troponin T High Sens 6, Total Protein 6.2, Albumin 3.6, Globulin 2.6, Lipase 12 L 12/20/24 06:42: Urine Color Straw, Urine Clarity Sl. Cloudy, Urine pH 6.5, Ur Specific [place] 1.015, Urine Protein 30 H, Urine Glucose (UA) Normal, Urine Ketones Negative, Urine Occult Blood 25 H, Urine Nitrite Negative, Urine Bilirubin Negative, Urine Urobilinogen Normal, Ur Leukocyte Esterase 500 H, Urine RBC 0 SEEN, Urine WBC 10-25 SEEN, Ur Squamous Epith Cells 0-5 SEEN, Urine Bacteria 0 SEEN, Urine Mucus 0 SEEN 12/20/24 06:48: POC Glucose 93 Imaging Radiology Impression Brain CT 12/20/24 06:17 IMPRESSION: No intracranial hemorrhage, mass effect or CT evidence of large vascular territory acute infarct. 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 There is now bilateral prominent appearance of the superior ophthalmic veins for example axial 8 may represent volume overload among others, nonspecific. Reading Location: [facility] Head/Neck CTA 12/20/24 06:17 IMPRESSION: No vessel cut off, flow significant stenosis or aneurysm CTA head and neck. Findings discussed verbally by myself with Dr. Adam at 8:05 a.m. December 20, 2024 Reading Location: [facility] Assessment & Plan Assessment/Plan (1) Generalized weakness: (2) Multiple falls: (3) Rhabdomyolysis: PLAN: Plan Patient is a 74-year-old female who presented to [facility] ED on 12/20/2024 with worsening weakness with falls. 1. Acute on chronic debility with recent falls at home, history of remote CVA with residual left-sided deficits ? Admit under observation status to [facility]. PT/OT/case management consulted. CT brain and CTA head/neck stable from previous. Unclear etiology for reported slight worsening of left lower extremity weakness for patient; suspect she may not be due too far from her baseline. Patient would prefer for home with home health care on discharge rather than SNF if possible. Appreciate therapy recommendations. Continue home atorvastatin. 2. Rhabdomyolysis ? CK level 2547 on admit. No LINNEA noted. Presume secondary to fall and being down at home. Will treat with maintenance IV fluids for now. Monitor daily CK level. 3. Elevated transaminases ? AST 100, ALT 108, alk phos 201 on admit. No abdominal pain noted. No prior history of elevated LFTs noted. Patient noninfectious appearing. Will obtain right upper quadrant ultrasound. Monitor daily LFTs. 4. Chronic pain syndrome with neuropathy ? OARRS reviewed and patient has been filling hydrocodone?acetaminophen regularly. Will continue home hydrocodone?acetaminophen 3 times daily as needed and home gabapentin. 5. Chronic left lower extremity venous stasis wound ? Significant venous stasis wound noted on left lower leg. However per patient, leg appears to be at baseline. Can consider wound care consult as needed. Chronic medical conditions: ? Class III obesity: BMI 40 on admit. Complicates hospital course, care and prognosis. ? GERD: Continue home PPI. ? Migraines: Home regimen listed as amitriptyline 75 mg at night and diltiazem 300 mg daily. Notably this diltiazem dosing does seem quite high. Will treat with home amitriptyline and diltiazem at reduced dose of 120 mg daily for now. ? Overactive bladder: Continue home tolterodine. DVT prophylaxis: Lovenox twice daily CODE STATUS: Full code, verified Expected disposition: SNF versus home with home health care, 1 to 2 days Total clinical time spent by myself addressing the patient's medical issues, reviewing all the data, and collaborating with patient's care team: 75 minutes. Charges/Coding Visit Charges Inpatient E&M: 31412 Init Hosp L3
[2024-12-20 09:34] LABS: Troponin T High Sens 2 HR 6 ng/L (<=14)
[2024-12-20 09:36] LABS: CPK Total, Creatine Kinase 2547 U/L (24-195)
[2024-12-20] MEDS: dilTIAZem CD 120 MG Capsule PO (09:37)
[2024-12-20] MEDS: Cholecalciferol (VIT D3) 25 MCG TABLET (1,000 UNITS) 50 MCG PO (09:37)
[2024-12-20] MEDS: Furosemide 40 MG Tablet PO (09:37)
[2024-12-20] MEDS: Pantoprazole Sodium 40 MG Tablet PO (09:38)
[2024-12-20] MEDS: Tolterodine Tartrate 4 MG CAP.SA PO (09:38)
[2024-12-20] MEDS: Multivitamins,Therapeutic Tablet 1 TABLET PO (09:40)
[2024-12-20] MEDS: HYDROcodone Bitartrate/Apap 5/325 Tablet PO ×2 (11:07→20:17)
[2024-12-20 11:54] LABS: Troponin T High Sens 4 HR 7 ng/L (<=14)
[2024-12-20] MEDS: 0.9% Saline Lock 10 ML Syringe IV (13:08)
[2024-12-20] MEDS: Nystatin Powder 15gm Bottle 1 APPLIC TOPICAL ×2 (13:08→20:07)
[2024-12-20] MEDS: Lactated Ringers 1,000 ML 150 ML IV ×2 (13:09→20:08)
[2024-12-20] MEDS: Potassium Chloride Oral Soln 20 MEQ/15 ML UDC 40 MEQ PO (20:07)
[2024-12-20] MEDS: Atorvastatin Calcium 10 MG Tablet PO (20:08)
[2024-12-20] MEDS: Amitriptyline 25 MG Tablet 75 MG PO (20:08)
[2024-12-20] MEDS: Gabapentin 300 MG Capsule PO (20:17)
[2024-12-21 05:34] VITALS: BP 134/70; PULSE 93; RESP 16; TEMP 36.6; O2SAT 97
[2024-12-21] MEDS: Lactated Ringers 1,000 ML 150 ML IV (05:39)
[2024-12-21] MEDS: Nystatin Powder 15gm Bottle 1 APPLIC TOPICAL ×3 (05:39→22:46)
[2024-12-21 06:55] LABS: Hematocrit 35.1 % (37-47); Hemoglobin 11.2 g/dL (12.0-15.0); Mean Corp Hgb Conc 31.9 g/dL (32-36); Mean Corpuscular Hgb 29.8 pg (27.0-32.0); Mean Corpuscular Volume 93.4 fL (81-99); Mean Platelet Vol. 9.8 fl (6.2-12.0); Platelet Count 206 K/mm3 (150-450); RBC Distribution Width SD 44.4 fl (35.1-43.9); Red Blood Count 3.76 M/mm3 (4.2-5.4); White Blood Count 7.6 K/mm3 (4.4-11.0)
[2024-12-21 07:24] LABS: AST(SGOT) 49 U/L (<=31); Alanine Aminotransfer ALT/SGPT 71 U/L (<=34); Albumin, Serum 3.1 g/dL (3.4-4.8); Alkaline Phosphatase 157 U/L (35-104); Anion Gap 8 (5-15); BUN 9 mg/dL (4-19); BUN/Creat Ratio 19.9 RATIO (10-20); Bilirubin, Direct 0.11 mg/dL (0.00-0.30); Calcium,Total 8.2 mg/dL (7.6-11.0); Carbon Dioxide 25.7 mmol/L (21.0-32.0); Chloride 106 mmol/L (98-108); Creatinine, Serum 0.44 mg/dL (0.70-1.20); EST Glomerular Filtration Rate 100 (>60); Estimated Creatinine Clearance 61.12 ml/min (50-250); Globulin 2.2 g/dL (2.2-4.2); Glucose 102 mg/dL (70-99); Potassium 3.7 mmol/L (3.3-5.1); Protein, Total 5.3 g/dL (5.9-8.4); Sodium Level 140 mmol/L (133-145)
[2024-12-21 07:47] LABS: CPK Total, Creatine Kinase 1349 U/L (24-195)
[2024-12-21 09:12] VITALS: BP 140/85; PULSE 94; RESP 18; TEMP 36.9; O2SAT 94
[2024-12-21] MEDS: Cholecalciferol (VIT D3) 25 MCG TABLET (1,000 UNITS) 50 MCG PO (09:19)
[2024-12-21] MEDS: Multivitamins,Therapeutic Tablet 1 TABLET PO (09:19)
[2024-12-21] MEDS: Tolterodine Tartrate 4 MG CAP.SA PO (09:19)
[2024-12-21] MEDS: Pantoprazole Sodium 40 MG Tablet PO (09:19)
[2024-12-21] MEDS: dilTIAZem CD 120 MG Capsule PO (09:19)
[2024-12-21] MEDS: HYDROcodone Bitartrate/Apap 5/325 Tablet PO ×2 (09:28→22:46)
--- NOTE | 2024-12-21 13:18 | CASEMGMT ---
RN JUDIE Assessment Face to Face with patient for initial transition planning/care coordination assessment. RN JUDIE introduced self and role at [facility], pt voices understanding. Pt is A&Ox4 and is resting comfortably in bed and is calm. Pt's daughter at bedside. Care providers, pharmacy, and demographics verified. Admitting dx: Weakness with falls LACE Strata: 2 PCP: Prabhakar Teresa Specialists: Endocrinology and orthopaedics through [facility] (pt cannot recall the names). Pt sees Dr. Nur with PM Preferred Pharmacy: [facility] Insurance: [facility] MCR Dual Complete, [facility] Community Plan [facility]. Pt states that she is active with [facility] services including Pvt Duty Aid (8 hrs/week) as well as [employer]. Pt states that the aid recently started last Saturday (12/18). Pt states that she is unsure who her CM is. Prescription Benefit: Yes LNOK: Laura (Daughter), Joe (Son) Living Arrangements: Pt lives alone in a single story home with a basement with a stair lift and 3 steps to enter the home ADLs/IADLs: Pt reports that she tries to remain as independent as possible. However, pt has had recent falls. Pt states that she plans to return home alone at the time of DC with support through her daughter, pvt duty aid, and skilled HHC. Transportation: Self, daughter. Denies concerns DME: Medical alert system (pt is currently wearing). Cane. Mobility Scooter. Stair lift. Walk in shower with grab bars and a shower chair. HHC/SNF: History at the [facility]. Pt reports that she has had [facility] HH in the past and would like this again (PT/OT only). Pt?s goal: home with skilled HHC Plan: Anticipate return home alone with skilled HHC, support through pt's daughter, and continuation of pvt duty aid and meal services through [facility]. Current 6-click score is 20. At this time, the pt states that she prefers [facility] HH again. However, this JERRICA DIMAS called Ann @ [facility] who sates that the pt's insurance is now out of network. CM to provide the pt with a list of in-network options. Pt denies further questions or concerns at this time. Report given to MS3 JERRICA DIMAS. Lorenzo Babin RN, CM
--- NOTE | 2024-12-21 13:44 | CASEMGMT ---
Discharge Planning A list of?HH providers including quality and resource use data and consistent with the patient's preferred geographic region, medical needs, and insurance network was created in [employer] Guide.? This list was provided to the RN JUDIE. Yael Waterman, Discharge Planning Asst.
--- NOTE | 2024-12-21 14:00 | CASEMGMT ---
JERRICA DIMAS notified [facility] is [facility], provided pt with a list of [facility] agencies in network for pt insurance. Pt [facility]. [facility]. Referrals made through [facility] to see if able to accept.
--- NOTE | 2024-12-21 14:21 | CASEMGMT ---
Social Work JO ANN called [facility], pt's CM is User: [phone]. JO ANN called and let her know pt is here, she would appreciate a call when pt is ready for d/c. PIERCE Jeffers
--- NOTE | 2024-12-21 14:36 | PN_ITS ---
Subjective Subjective Patient seen and examined. She had no active complaints. She was admitted with complaint of weakness and mechanical fall. Patient has a history of stroke with chronic left upper extremity weakness. She says her leg just gave way, and she has had several falls at home. She denied any lightheadedness or dizziness. Review of systems is otherwise negative. Objective Data Objective Data Vital Signs: Vital Signs Temp Pulse Resp BP Pulse Ox O2 Del Method 98.5 F 94 18 140/85 H 94 Room Air 12/21/24 09:12 12/21/24 09:12 12/21/24 09:12 12/21/24 09:12 12/21/24 09:12 12/21/24 09:12 Oxygen Delivery Method Room Air Weight: 206 lb 3.2 oz Body Mass Index (BMI) 40.2 Intake & Output: Intake and Output for Last 24 Hours 12/19/24 12/20/24 12/21/24 23:59 23:59 23:59 Intake Total 1999 2300 / 2300 Balance 1999 2300 / 2300 Lab / Micro Data 12/21/24 06:34 12/21/24 06:34 Labs: Laboratory Results - last 24 hr 12/20/24 06:42: Urine Color Straw, Urine Clarity Sl. Cloudy, Urine pH 6.5, Ur Specific [place] 1.015, Urine Protein 30 H, Urine Glucose (UA) Normal, Urine Ketones Negative, Urine Occult Blood 25 H, Urine Nitrite Negative, Urine Bilirubin Negative, Urine Urobilinogen Normal, Ur Leukocyte Esterase 500 H, Urine RBC 0 SEEN, Urine WBC 10-25 SEEN, Ur Squamous Epith Cells 0-5 SEEN, Urine Bacteria 0 SEEN, Urine Mucus 0 SEEN 12/21/24 06:34: WBC 7.6, RBC 3.76 L, Hgb 11.2 L, Hct 35.1 L, MCV 93.4, MCH 29.8, MCHC 31.9 L, RDW Std Deviation 44.4 H, RDW Coeff of Adriana 13.0, Plt Count 206, MPV 9.8, Sodium 140, Potassium 3.7, Chloride 106, Carbon Dioxide 25.7, Anion Gap 8, BUN 9, Creatinine 0.44 L, Estim Creat Clear Calc 61.12, Est GFR (MDRD) Non-Af 100, BUN/Creatinine Ratio 19.9, Glucose 102 H, Calcium 8.2, Total Bilirubin 0.20, Direct Bilirubin 0.11, AST 49 H, ALT 71 H, Alkaline Phosphatase 157 H, T otal Creatine Kinase 1349 H, Total Protein 5.3 L, Albumin 3.1 L, Globulin 2.2 Micro: Microbiology 12/20/24 06:42 Urine, Clean Catch Urine Culture - Preliminary Gram negative cody Physical Exam Const alert, oriented x3 and no apparent distress Constitutional Narrative: class III obesity General Appearance: cooperative HEENT normocephalic, head/scalp atraumatic and moist oral mucous membranes Eyes EOMs intact bilaterally Neck no lymphadenopathy and supple Lymph Lymphatic: no lymphedema noted Resp normal respiratory effort, normal air movement and clear to auscultation bilaterally Cardio regular rate, regular rhythm, S1 normal heart sound, S2 normal heart sound and no murmurs GI normal to inspection, nondistended, normoactive bowel sounds, soft to palpation, non-tender and non-distended Extremity normal capillary refill and no clubbing, cyanosis or edema General Extremity: no tenderness to palpation of joints or extremities Skin Skin Narrative: has erythema and mild differential warmth over left vega; she says this is chronic, due to lymphedema Neuro CN's II-XII intact bilaterally Neuro Narrative: has chronic LUE weakness due to prior stroke. Psych thought process normal and cooperative Appearance: appropriate Assessment & Plan Assessment/Plan (1) Generalized weakness: (2) Multiple falls: (3) Rhabdomyolysis: PLAN: Plan #Debility due to frequent mechanical falls * Stated that he has a history of CVA with residual left-sided deficits and this likely contributing to her falls. * Says she has had several falls at home. She does not pass out but just feels like her left leg becomes weak and gives way under her. CT of the brain and CTA head and neck showed no acute pathology. * PT OT on board. Fall precautions. #Rhabdomyolysis: * CPK was 2547 on admission and has trended down significantly to 1349 today. * Encourage oral hydration. * Will monitor. #Chronic pain with neuropathy: on norco. PT/OT On board. #Elevated liver enzymes: AST and ALT were elevated at 100 and 108 and ALP was 201. He still however trended downward to 110. #CHronic left venous stasis in the setting of lymphedema * has erythema of LLE which she says is chronic. * wound care consulted. * #Class III obesity: BMI is 40. Complicates acute care, expected recovery and prognosis #GERD: On PPI #History of migraines: On amitriptyline #History of overactive bladder: On tolterodine DVT prophylaxis: Lovenox Disposition: Patient was to go home with home health care. PT OT on board as well as case management help facilitate discharge. Charges/Coding Visit Charges Inpatient E&M: 94405 Subs Hosp L2
[2024-12-21 15:09] VITALS: BP 137/89; PULSE 95; RESP 18; TEMP 36.8; O2SAT 95
[2024-12-21] MEDS: 0.9% Normal Saline (1000mL) 1,000 ML 125 ML IV (15:22)
--- NOTE | 2024-12-21 15:36 | CASEMGMT ---
JERRICA CM: Call received from Mami Montoya, Transitions of Care CM with [facility]. Mami shared the following: [facility] is pt's home health aide provider for 8 hours/week ([phone]). Pt also has a medical alert through [facility] and home delivered meals. Cynthia Moore RN AC
[2024-12-21] MEDS: Ceftriaxone 1 GM/50 ML BAG IV (17:17)
[2024-12-21 20:17] VITALS: BP 139/90; PULSE 90; RESP 18; TEMP 36.7; O2SAT 98
[2024-12-21] MEDS: Amitriptyline 25 MG Tablet 75 MG PO (22:45)
[2024-12-21] MEDS: Gabapentin 300 MG Capsule PO (22:45)
[2024-12-21] MEDS: Atorvastatin Calcium 10 MG Tablet PO (22:45)
[2024-12-21] MEDS: Potassium Chloride Oral Soln 20 MEQ/15 ML UDC 40 MEQ PO (22:46)
[2024-12-22] MEDS: 0.9% Normal Saline (1000mL) 1,000 ML 125 ML IV (00:11)
[2024-12-22 03:00] VITALS: BP 151/94; PULSE 82; RESP 18; TEMP 36.4; O2SAT 92
[2024-12-22 06:53] LABS: Absolute Lymphocyte Count 1.91 X10^3/uL (0.83-4.51); Absolute Neutrophil Count 2.6 X10^3/uL (2.0-7.7); Basophil# 0.04 X10^3/uL; Basophil% 0.7 % (0-1); Eosinophil# 0.37 X10^3/uL; Eosinophils% 6.8 % (0-5); Hematocrit 34.2 % (37-47); Hemoglobin 10.8 g/dL (12.0-15.0); Lymphocyte # 1.91 X10^3/ul (0.83-4.51); Mean Corp Hgb Conc 31.6 g/dL (32-36); Mean Corpuscular Hgb 29.9 pg (27.0-32.0); Mean Corpuscular Volume 94.7 fL (81-99); Mean Platelet Vol. 9.9 fl (6.2-12.0); Monocyte# 0.48 X10^3/uL; Monocyte% 8.8 % (0-10); NRBC Flagged by Analyzer 0 % (0-5); Neutrophil # 2.63 X10^3/uL (2.7-7.7); Neutrophil % 48.3 % (47-70); Platelet Count 190 K/mm3 (150-450); RBC Distribution Width SD 45.1 fl (35.1-43.9); Red Blood Count 3.61 M/mm3 (4.2-5.4); White Blood Count 5.5 K/mm3 (4.4-11.0)
[2024-12-22 07:34] LABS: Anion Gap 7 (5-15); BUN 6 mg/dL (4-19); BUN/Creat Ratio 15.1 RATIO (10-20); Calcium,Total 7.9 mg/dL (7.6-11.0); Carbon Dioxide 24.4 mmol/L (21.0-32.0); Chloride 110 mmol/L (98-108); Creatinine, Serum 0.38 mg/dL (0.70-1.20); EST Glomerular Filtration Rate 104 (>60); Estimated Creatinine Clearance 61.12 ml/min (50-250); Glucose 102 mg/dL (70-99); Potassium 3.9 mmol/L (3.3-5.1); Sodium Level 142 mmol/L (133-145)
[2024-12-22 08:00] VITALS: BP 154/96; PULSE 84; RESP 17; TEMP 36.7; O2SAT 95
[2024-12-22] MEDS: Cholecalciferol (VIT D3) 25 MCG TABLET (1,000 UNITS) 50 MCG PO (08:03)
[2024-12-22] MEDS: Pantoprazole Sodium 40 MG Tablet PO (08:12)
[2024-12-22] MEDS: dilTIAZem CD 120 MG Capsule PO (08:12)
[2024-12-22] MEDS: Multivitamins,Therapeutic Tablet 1 TABLET PO (08:12)
[2024-12-22] MEDS: Tolterodine Tartrate 4 MG CAP.SA PO (08:12)
[2024-12-22] MEDS: HYDROcodone Bitartrate/Apap 5/325 Tablet PO ×2 (08:17→13:49)
[2024-12-22] MEDS: Ceftriaxone 1 GM/50 ML BAG IV (10:51)
--- NOTE | 2024-12-22 11:35 | CASEMGMT ---
JERRICA DIMAS received call from [facility], able to accept pt for services. Notified hospitalist of acceptance. Notified Pt of acceptance.
[2024-12-22 14:30] VITALS: BP 140/79; PULSE 85; RESP 16; TEMP 36.6; O2SAT 97
--- NOTE | 2024-12-22 15:28 | DCINST_ITS ---
Discharge Instructions Diet Discharge Diet: Low fat / Low cholesterol DC O2, CPAP, BIPAP needs Home O2 Discharge instructions: No Dressing / Incision Discharge Activity: Return to Normal Activity Weight Bearing Status: Weight bearing as tolerated Dressing / Incision Call your doctor if you observe: Fever of 101 or Higher, Shortness of breath, Dizziness, Chest pain and Uncontrolled pain Follow Up Care Test Results: Test results from this visit will be discussed in further detail at your follow- up appointment, if applicable. Discharge Plan Admission Admit Date/Time: 12/20/24 14:43 Primary Reason for Your Visit: debility and frequent falls Attending Provider: Louise Miller Primary Care Provider: Miguel Teresa Consulting Providers: Willian Romero Instructions Patient Instructions: Exercises to Prevent Falls, ED UTI Fem Ch, ED Fall Prevention Discharge Orders/Prescriptions Prescriptions: New cefdinir 300 mg capsule 300 mg PO BID Qty: 10 0RF Continued diltiazem HCl 300 MG capsule,extended release 24hr 300 mg PO DAILY gabapentin 300 MG capsule 300 mg PO DAILY cholecalciferol (vitamin D3) [Vitamin D3] 2,000 UNIT capsule 2,000 unit PO DAILY hydrocodone-acetaminophen 1 TABLET tablet 2 tab PO TID PRN (Reason: pain) amitriptyline 75 MG tablet 75 mg PO QHS atorvastatin 10 mg Tablet 10 mg PO QHS calcium carbonate-vitamin D3 [Oyster Shell Calcium-Vit D3] 500 mg-10 mcg (400 unit) tablet 1 tab PO BID tolterodine 4 mg capsule,extended release 24hr 4 mg PO DAILY potassium chloride 20 mEq/15 mL liquid 40 meq PO DAILY multivitamin [Daily Multi-Vitamin] Tablet 1 tab PO DAILY furosemide 40 mg tablet 40 mg PO DAILY omeprazole 40 mg capsule,delayed release(DR/EC) 40 mg PO DAILY Referrals / Follow Up: Miguel Teresa MD [Primary Care Provider] - Within 1 Week Disposition Disposition (needs filled in before D/C Order can be placed): Home Health Service
--- NOTE | 2024-12-22 15:40 | CASEMGMT ---
JERRICA DIMAS called and notified [facility] agency Pt is DC'ing from hospital today. They will call pt to set up first appointment.
--- NOTE | 2024-12-22 15:53 | PHA.DC.MC.R ---
Pharmacy [facility] Counseling Pharmacy Service has performed discharge medication reconciliation and counseling for this patient. 1. CEFDINIR 300MG PO BID X 5 DAYS The patient's discharge medication list was reviewed for discrepancies and discrepancies were resolved. The patient was counseled on the following discharge medications and changes in medications for homegoing were reviewed. The Reason for Use, instructions for use, and potential side effects were reviewed for all new medications. The patient's questions regarding all of their medications were answered. The patient was able to verbally demonstrate an understanding of their discharge medications. Medications at Discharge Home Medications diltiazem HCl 300 mg capsule,extended release 24 hr 300 mg PO DAILY prevents migraines 04/09/15 gabapentin 300 mg capsule 300 mg PO DAILY nerve pain 04/09/15 cholecalciferol (vitamin D3) 50 mcg (2,000 unit) capsule (Vitamin D3) 2,000 unit PO DAILY supplement 03/19/18 hydrocodone-acetaminophen 5-325mg 5mg-325mg 2 tab PO TID PRN pain 08/17/19 amitriptyline 75 mg tablet 75 mg PO QHS migraine prevention 05/02/20 atorvastatin 10 mg tablet 10 mg PO QHS cholesterol 02/28/21 calcium 500 mg (as carbonate)-vitamin D3 10 mcg (400 unit) tablet (Oyster Shell Calcium-Vitamin D3) 1 tab PO BID 07/28/23 tolterodine 4 mg capsule,extended release 24 hr 4 mg PO DAILY 07/28/23 furosemide 40 mg tablet 40 mg PO DAILY 12/20/24 multivitamin (Daily Multi-Vitamin tablet) 1 tab PO DAILY 12/20/24 omeprazole 40 mg capsule,delayed release 40 mg PO DAILY 12/20/24 potassium chloride 20 mEq/15 mL oral liquid 40 meq PO DAILY 12/20/24 cefdinir 300 mg capsule 300 mg PO BID #10 caps 12/22/24
--- NOTE | 2024-12-22 16:02 | CASEMGMT ---
Social Work- called [facility] ([phone]) to advise of pt discharge and left a voicemail. ISMAEL Burch
--- NOTE | 2024-12-22 16:35 | DS.PCM_ITS ---
Providers Date of Admission: 12/20/24 Date of Discharge: 12/22/24 Primary Care Physician: Dr. Miguel Teresa MD Reason For Visit: WEAKNESS W/ FALLS Diagnosis Discharge Diagnosis (1) Generalized weakness: Status: Acute Code(s): R53.1 - Weakness (2) Multiple falls: Status: Acute Code(s): R29.6 - Repeated falls (3) Rhabdomyolysis: Status: Acute Code(s): M62.82 - Rhabdomyolysis Plan #Debility due to frequent mechanical falls * Stated that he has a history of CVA with residual left-sided deficits and this likely contributing to her falls. * Says she has had several falls at home. She does not pass out but just feels like her left leg becomes weak and gives way under her. CT of the brain and CTA head and neck showed no acute pathology. * PT OT on board. Fall precautions. #Rhabdomyolysis: * CPK was 2547 on admission and has trended down significantly to 1349 today. * Encourage oral hydration. * Will monitor. #Chronic pain with neuropathy: on norco. PT/OT On board. #Elevated liver enzymes: AST and ALT were elevated at 100 and 108 and ALP was 201. He still however trended downward to 110. #CHronic left venous stasis in the setting of lymphedema * has erythema of LLE which she says is chronic. * wound care consulted. * #Class III obesity: BMI is 40. Complicates acute care, expected recovery and prognosis #GERD: On PPI #History of migraines: On amitriptyline #History of overactive bladder: On tolterodine DVT prophylaxis: Lovenox Disposition: Patient was to go home with home health care. PT OT on board as well as case management help facilitate discharge. Medications at Discharge Home Medications diltiazem HCl 300 mg capsule,extended release 24 hr 300 mg PO DAILY prevents migraines 04/09/15 gabapentin 300 mg capsule 300 mg PO DAILY nerve pain 04/09/15 cholecalciferol (vitamin D3) 50 mcg (2,000 unit) capsule (Vitamin D3) 2,000 unit PO DAILY supplement 03/19/18 hydrocodone-acetaminophen 5-325mg 5mg-325mg 2 tab PO TID PRN pain 08/17/19 amitriptyline 75 mg tablet 75 mg PO QHS migraine prevention 05/02/20 atorvastatin 10 mg tablet 10 mg PO QHS cholesterol 02/28/21 calcium 500 mg (as carbonate)-vitamin D3 10 mcg (400 unit) tablet (Oyster Shell Calcium-Vitamin D3) 1 tab PO BID 07/28/23 tolterodine 4 mg capsule,extended release 24 hr 4 mg PO DAILY 07/28/23 furosemide 40 mg tablet 40 mg PO DAILY 12/20/24 multivitamin (Daily Multi-Vitamin tablet) 1 tab PO DAILY 12/20/24 omeprazole 40 mg capsule,delayed release 40 mg PO DAILY 12/20/24 potassium chloride 20 mEq/15 mL oral liquid 40 meq PO DAILY 12/20/24 cefdinir 300 mg capsule 300 mg PO BID #10 caps 12/22/24 Hospital Course Operations None Procedures None Summary of Care Provided Minutes Spent on Discharge: 47 Hospital Course: Patient is a 74-year-old female with past medical history as outlined was admitted through the ED on 12/20/2024 with complaint of worsening weakness with mechanical falls at home. Patient had a history of stroke with residual left- sided weakness. She lives at home by herself. She also has a history of recurrent UTIs and thought she may have been getting UTIs so she had been increasing her water intake. The day before admission she noticed that her left leg was weaker than usual and when trying to get up she fell. She called the EMS and was brought in for further evaluation. On admission CPK was elevated at 2547. Urinalysis did not show any evidence of UTI. She was initially admitted to the manage for debility and weakness due to mechanical falls. However patient had frequency of urination and so urine culture was done which did grow Proteus mirabilis. She was started on IV ceftriaxone. She worked with therapy and did well. Patient felt much stronger and wanted to be discharged home on 12/22/2024. His CPK trended downwards with hydration with IV and oral. She did okay with therapy and was considered has been able to go home with home health. She was therefore discharged on 12/22/2024 on p.o. cefdinir 300 mg twice daily for 5 days. She is follow-up with her primary care doctor within 1 to 2 weeks. She was discharged with home health care and is to be having home physical therapy. Patient seen and examined prior to discharge. She felt well and was requesting to be discharged, she says she had a lot of bills to pay and other things take care of her at home. Labs and vitals reviewed. Home medication reviewed and reconciled. Physical Exam Const alert, oriented x3 and no apparent distress Constitutional Narrative: class III obesity General Appearance: cooperative and comfortable Orientation / Consciousness: awake HEENT normocephalic, head/scalp atraumatic, hearing grossly normal bilaterally, nasal mucous membranes and turbinates normal and moist oral mucous membranes Mouth: oral and palatal mucosa normal Eyes PERRL, EOMs intact bilaterally and conjunctivae normal Neck full ROM, no lymphadenopathy and supple Lymph Lymphatic: no lymphedema noted Chest inspection of chest normal Resp normal respiratory effort, normal air movement, no use of accessory muscles and clear to auscultation bilaterally Cardio regular rate, regular rhythm, S1 normal heart sound, S2 normal heart sound, no murmurs and peripheral pulses 2+ throughout GI normal to inspection, nondistended, normoactive bowel sounds, soft to palpation, non-tender and non-distended Back/Spine normal ROM Extremity normal capillary refill and no clubbing, cyanosis or edema General Extremity: no tenderness to palpation of joints or extremities Skin Skin Narrative: has erythema and mild differential warmth over left vega; she says this is chronic, due to lymphedema Neuro oriented x3 and CN's II-XII intact bilaterally Neuro Narrative: has chronic LUE weakness due to prior stroke. Sensorium / Orientation: awake and alert Speech: speech normal Psych mental status grossly normal, thought process normal and cooperative Appearance: appropriate Weight / BMI Weight Weight: 206 lb 3.2 oz Body Mass Index (BMI) 40.2 ABG / Lab / Microbiology Data 12/22/24 06:38 12/22/24 06:38 Laboratory: Laboratory Results - last 24 hr 12/22/24 06:38: WBC 5.5, RBC 3.61 L, Hgb 10.8 L, Hct 34.2 L, MCV 94.7, MCH 29.9, MCHC 31.6 L, RDW Std Deviation 45.1 H, RDW Coeff of Adriana 13.0, Plt Count 190, MPV 9.9, Immature Gran % (Auto) 0.400, Neut % (Auto) 48.3, Lymph % (Auto) 35.0, Bailey % (Auto) 8.8, Eos % (Auto) 6.8 H, Baso % (Auto) 0.7, Absolute Neuts (auto) 2.6, Absolute Lymphs (auto) 1.91, Nucleated RBC % 0, Sodium 142, Potassium 3.9, C hloride 110 H, Carbon Dioxide 24.4, Anion Gap 7, BUN 6, Creatinine 0.38 L, Estim Creat Clear Calc 61.12, Est GFR (MDRD) Non-Af 104, BUN/Creatinine Ratio 15.1, G lucose 102 H, Calcium 7.9 Microbiology: Microbiology 12/20/24 06:42 Urine, Clean Catch Urine Culture - Final Proteus mirabilis D/C Instructions Discharge Diet: Low fat / Low cholesterol Discharge Activity: Return to Normal Activity Weight Bearing Status: Weight bearing as tolerated Call your doctor if you observe: Fever of 101 or Higher, Shortness of breath, Dizziness, Chest pain and Uncontrolled pain DC O2, CPAP, BIPAP Needs Home O2 Discharge instructions: No Meaningful Use Info Meaningful Use Meaningful Use Diagnoses (Choose all that apply): None applicable Ischemic Stroke Statin Dosing Therapy Reference: STATIN DOSE THERAPY REFERENCE: * Patients > 75 years receive moderate or high dose statin therapy. * Patients 75 years or YOUNGER should receive HIGH intensity statin dose unless contraindicated. You will be required to document reason for non-treatment if statin daily dose does not meet guidelines. HIGH DOSE STATIN THERAPY DAILY Atorvastatin > than or = to 40 mg Rosuvastatin > than or = to 20 mg Amlodipine + Atorvastatin > than or = to 2.5/40 mg Ezetimibe + Simvastatin 10/80 mg Simvastatin 80mg Discharge Plan Admission Admit Date/Time: 12/20/24 14:43 Primary Reason for Your Visit: debility and frequent falls Attending Provider: Louise Miller Primary Care Provider: Miguel Teresa Consulting Providers: Willian Romero Instructions Patient Instructions: Exercises to Prevent Falls, ED UTI Fem Ch, ED Fall Prevention Discharge Orders/Prescriptions Prescriptions: New cefdinir 300 mg capsule 300 mg PO BID Qty: 10 0RF Continued diltiazem HCl 300 MG capsule,extended release 24hr 300 mg PO DAILY gabapentin 300 MG capsule 300 mg PO DAILY cholecalciferol (vitamin D3) [Vitamin D3] 2,000 UNIT capsule 2,000 unit PO DAILY hydrocodone-acetaminophen 1 TABLET tablet 2 tab PO TID PRN (Reason: pain) amitriptyline 75 MG tablet 75 mg PO QHS atorvastatin 10 mg Tablet 10 mg PO QHS calcium carbonate-vitamin D3 [Oyster Shell Calcium-Vit D3] 500 mg-10 mcg (400 unit) tablet 1 tab PO BID tolterodine 4 mg capsule,extended release 24hr 4 mg PO DAILY potassium chloride 20 mEq/15 mL liquid 40 meq PO DAILY multivitamin [Daily Multi-Vitamin] Tablet 1 tab PO DAILY furosemide 40 mg tablet 40 mg PO DAILY omeprazole 40 mg capsule,delayed release(DR/EC) 40 mg PO DAILY Referrals / Follow Up: Miguel Teresa MD [Primary Care Provider] - Within 1 Week Disposition Disposition (needs filled in before D/C Order can be placed): Home Health Service Charges/Coding Visit Charges Inpatient E&M: 26651 Disch Hosp >30min
== END 2024-12-22 17:03 | disposition home health service (06) | DRG 558 ==
LOC: ED 08:24 → MS3 08:36
PROVIDERS: Admitting Provider Hospitalist; Emergency Provider Emergency Medicine; PCP Family Medicine; Visit Provider Student in an Organized Health Care Education/Training Program
DX: M62.82 Rhabdomyolysis (principal); I69.354 Hemiplegia and hemiparesis following cerebral infarction affecting left non-dominant side; Z68.41 Body mass index [BMI] 40.0-44.9, adult; N39.0 Urinary tract infection, site not specified; G43.909 Migraine, unspecified, not intractable, without status migrainosus; G62.9 Polyneuropathy, unspecified; I89.0 Lymphedema, not elsewhere classified; K21.9 Gastro-esophageal reflux disease without esophagitis; I87.8 Other specified disorders of veins; R53.81 Other malaise; E66.813 Obesity, class 3; G89.4 Chronic pain syndrome; N32.81 Overactive bladder; B96.4 Proteus (mirabilis) (morganii) as the cause of diseases classified elsewhere; R31.9 Hematuria, unspecified; R29.6 Repeated falls; Z87.440 Personal history of urinary (tract) infections; R74.8 Abnormal levels of other serum enzymes
CPT/HCPCS: 36415; 70450; 70496; 70498; 80048; 80076; 81001; 82550; 82962; 83605; 83690; 84484; 85025; 85027; 85610; 85730; 87077; 87086; 87088; 87186; 93005; 94668; 97162; 97166; 97530; 99285; Q9967; A4216

== ENCOUNTER → 2025-02-17 | Outpatient (CLI) | payer MEDICARE, MEDICAID, SELFPAY ==
[2025-02-17 17:58] LABS: Barbiturate Urine NEGATIVE (< 200 ng/mL); Benzodiazepine Urine NEGATIVE (< 200 ng/mL); PCP Urine NEGATIVE (< 25 ng/mL); THC Urine NEGATIVE (< 50 ng/mL)
== END | disposition home or self-care (01) ==
LOC: LAB 16:43
PROVIDERS: PCP Family Medicine; Referring Provider Anesthesiology Pain Medicine; Visit Provider Anesthesiology Pain Medicine
DX: F11.20 Opioid dependence, uncomplicated (principal)
CPT/HCPCS: 80307